=== PATIENT | male | born 1955 | race Caucasian/White ===

== ENCOUNTER 2016-03-24 16:36 | Inpatient (IN) | payer MEDICARE, BC ==
[2016-03-24] MEDS ORDERED: SODIUM CHLORIDE 0.9% 1,000 ML IV STA (17:07)
[2016-03-24] MEDS ORDERED: AZITHROMYCIN 500 MG in SODIUM CHLORIDE 0.9% 250 ML IVPB STA (17:07)
[2016-03-24] MEDS ORDERED: ALBUTEROL NEBULIZED 2.5 MG/3 ML INHALATION STA (17:07)
[2016-03-24] MEDS ORDERED: methylPREDNISolone SOD SUCCI 125 MG/2 ML VIAL IV STA (17:07)
[2016-03-24] MEDS ORDERED: IPRATROPIUM 0.5 MG/2.5 ML NEBU INHALATION STA (17:07)
--- NOTE | 2016-03-24 17:14 | ED ---
General Adult HPI - General Chief complaint: Shortness of Breath Stated complaint: MOY Time Seen by Provider: 03/24/16 17:07 Source: patient, RN notes reviewed, old records reviewed Mode of arrival: ambulatory Limitations: no limitations - History of Present Illness Initial comments: This is a 61-year-old male ER for evaluation. This patient presents for evaluation of shortness of breath. Patient does suffer from asthma as well as having cardiac comorbidities. Nations states he was recently evaluated for similar symptoms about 4 days ago, no improvement since. No fevers, does have increased cough and congestion, no recent travel history and at this time denies chest pain - Related Data Home Medications Medication Instructions Recorded Confirmed Citalopram Hydrobromide [CeleXA] 20 mg PO HS 12/15/14 03/24/16 Metoprolol Tartrate 25 mg PO HS 12/15/14 03/24/16 Zinc Gluconate [Zinc] 50 mg PO DAILY 12/15/14 03/24/16 Albuterol Nebulized [Ventolin 1 applicate INHALATION RT-Q6H PRN 07/18/15 Nebulized] Magnesium Oxide [Mag-Ox] 250 mg PO DAILY 09/21/15 03/24/16 Tiotropium 18 Mcg/Puff [Spiriva] 1 cap INHALATION RT-DAILY 09/21/15 03/24/16 Topiramate [Topiramate] 25 mg PO BID 09/21/15 03/24/16 Warfarin [Coumadin] 5 mg PO HS 09/21/15 03/24/16 HYDROcodone/APAP 10-325MG [[place] 1 tab PO Q6H PRN 01/18/16 03/24/16 10-325] Budesonide/Formoterol Fumarate 2 puff INHALATION RT-BID 02/15/16 03/24/16 [Symbicort 80-4.5 Mcg Inhaler] Colchicin-Probenecid 0.5-500Mg 1 tab PO DAILY 02/15/16 03/24/16 [Colbenemid] Diazepam [Valium] 5 mg PO DAILY PRN 02/15/16 03/24/16 Previous Rx's Medication Instructions Recorded Warfarin [Coumadin] 6 mg PO DAILY #30 tab 03/27/16 predniSONE 0 mg PO DIRECTED #18 tab 03/27/16 Allergies Allergy/AdvReac Type Severity Reaction Status Date / Time No Known Allergies Allergy Verified 03/24/16 17:40 Review of Systems ROS Statement: Those systems with pertinent positive or pertinent negative responses have been documented in the HPI. ROS Other: All systems not noted in ROS Statement are negative. Past Medical History Past Medical History: COPD, Deep Vein Thrombosis (DVT), GERD/Reflux, Hearing Disorder / Deafness, Osteoarthritis (OA), Vascular Disorder, Vascular Disorder Additional Past Medical History / Comment(s): CHRONIC BRONCHITIS. DVT of the right lower extremity in 2007 , peripheral vascular disease, wound bottom rt foot, cast on rt footdependent. wound rt foot History of Any Multi-Drug Resistant Organisms: MRSA Date of last positivie culture/infection: 2007 MDRO Source:: NECK Past Surgical History: Hernia Repair, Orthopedic Surgery Additional Past Surgical History / Comment(s): Bilateral femoral bypass surgery , arthroscopic left knee surgery, bilateral inguinal hernia repair, partial left great toe excision/amputation . Past Anesthesia/Blood Transfusion Reactions: No Reported Reaction Past Psychological History: Anxiety Smoking Status: Current every day smoker Past Alcohol Use History: Occasional Additional Past Alcohol Use History / Comment(s): smoker since age 18 , 1 PPD Past Drug Use History: Marijuana Additional Drug Use History / Comment(s): occ use - Past Family History Brother(s) Family Medical History: Coronary Artery Disease (CAD) Additional Family Medical History / Comment(s): heart attack/cabg Mother Family Medical History: Deep Vein Thrombosis (DVT) General Exam Limitations: no limitations General appearance: alert, in no apparent distress Head exam: Present: atraumatic, normocephalic, normal inspection Eye exam: Present: normal appearance, PERRL, EOMI. Absent: scleral icterus, conjunctival injection, periorbital swelling ENT exam: Present: normal exam, mucous membranes moist Neck exam: Present: normal inspection. Absent: tenderness, meningismus, lymphadenopathy Respiratory exam: Present: wheezes, accessory muscle use, decreased breath sounds, prolonged expiratory. Absent: respiratory distress, rales, rhonchi, stridor Cardiovascular Exam: Present: regular rate, normal rhythm, normal heart sounds. Absent: systolic murmur, diastolic murmur, rubs, gallop, clicks GI/Abdominal exam: Present: soft, normal bowel sounds. Absent: distended, tenderness, guarding, rebound, rigid Extremities exam: Present: normal inspection, full ROM, normal capillary refill. Absent: tenderness, pedal edema, joint swelling, calf tenderness Back exam: Present: normal inspection Neurological exam: Present: alert, oriented X3, CN II-XII intact Psychiatric exam: Present: normal affect, normal mood Skin exam: Present: warm, dry, intact, normal color. Absent: rash Course Vital Signs 03/24/16 03/24/16 03/24/16 17:01 17:34 18:08 Temperature 97.3 F L Pulse Rate 97 89 Respiratory 22 20 22 Rate Blood Pressure 138/87 131/74 O2 Sat by Pulse 93 L 94 L Oximetry 03/24/16 03/24/16 03/24/16 18:20 18:38 18:40 Temperature Pulse Rate 88 86 92 Respiratory Rate Blood Pressure 125/73 O2 Sat by Pulse 100 Oximetry 03/24/16 03/24/16 19:10 19:29 Temperature 97.9 F Pulse Rate 96 97 Respiratory 20 Rate Blood Pressure 142/85 O2 Sat by Pulse 93 L Oximetry - Reevaluation(s) Reevaluation #1: 03/24/16 17:14 Patient's at home pulse ox noted to be 88% EKG Findings - EKG Comments: EKG Findings:: EKG shows normal sinus rhythm rate of 98, VT 142, QRS 96, QTc 474 Medical Decision Making - Medical Decision Making 61 year with significant shortness of breath, patient having COPD exacerbation with hypoxia, he does mild improvement prolonged region, patient be admitted admitted for further cardiopulmonary resuscitation, breathing treatments and further treatment and management - Lab Data Result diagrams: 03/24/16 17:30 03/27/16 07:42 Lab Results 03/24/16 03/24/16 03/24/16 Range/Units 17:30 17:30 17:30 WBC 8.1 (3.8-10.6) k/uL RBC 5.65 (4.30-5.90) m/uL Hgb 17.4 (13.0-17.5) gm/dL Hct 51.9 (39.0-53.0) % MCV 92.0 (80.0-100.0) fL MCH 30.8 (25.0-35.0) pg MCHC 33.5 (31.0-37.0) g/dL RDW 14.6 (11.5-15.5) % Plt Count 236 (150-450) k/uL Neutrophils % 67 % Lymphocytes % 18 % Monocytes % 6 % Eosinophils % 6 % Basophils % 1 % Neutrophils # 5.4 (1.3-7.7) k/uL Lymphocytes # 1.5 (1.0-4.8) k/uL Monocytes # 0.5 (0-1.0) k/uL Eosinophils # 0.5 (0-0.7) k/uL Basophils # 0.1 (0-0.2) k/uL PT (9.0-12.0) sec INR (<1.1) APTT (22.0-30.0) sec Sodium 141 (137-145) mmol/L Potassium 3.8 (3.5-5.1) mmol/L Chloride 101 (98-107) mmol/L Carbon Dioxide 29 (22-30) mmol/L Anion Gap 11 mmol/L BUN 14 (9-20) mg/dL Creatinine 1.19 (0.66-1.25) mg/dL Est GFR (MDRD) Af Amer >60 (>60 ml/min/1.73 sqM) Est GFR (MDRD) Non-Af >60 (>60 ml/min/1.73 sqM) Glucose 98 (74-99) mg/dL Calcium 9.5 (8.4-10.2) mg/dL Magnesium 1.0 L* (1.6-2.3) mg/dL Total Bilirubin 0.5 (0.2-1.3) mg/dL AST 25 (17-59) U/L ALT 35 (21-72) U/L Alkaline Phosphatase 97 (38-126) U/L Total Creatine Kinase 66 (55-170) U/L CK-MB (CK-2) 1.3 (0.0-2.4) ng/mL CK-MB (CK-2) Rel Index 2.0 Troponin I <0.012 (0.000-0.034) ng/mL NT-Pro-B Natriuret Pep pg/mL Total Protein 7.4 (6.3-8.2) g/dL Albumin 3.9 (3.5-5.0) g/dL 03/24/16 03/24/16 Range/Units 17:30 17:30 WBC (3.8-10.6) k/uL RBC (4.30-5.90) m/uL Hgb (13.0-17.5) gm/dL Hct (39.0-53.0) % MCV (80.0-100.0) fL MCH (25.0-35.0) pg MCHC (31.0-37.0) g/dL RDW (11.5-15.5) % Plt Count (150-450) k/uL Neutrophils % % Lymphocytes % % Monocytes % % Eosinophils % % Basophils % % Neutrophils # (1.3-7.7) k/uL Lymphocytes # (1.0-4.8) k/uL Monocytes # (0-1.0) k/uL Eosinophils # (0-0.7) k/uL Basophils # (0-0.2) k/uL PT 15.6 H (9.0-12.0) sec INR 1.6 (<1.1) APTT 33.0 H (22.0-30.0) sec Sodium (137-145) mmol/L Potassium (3.5-5.1) mmol/L Chloride (98-107) mmol/L Carbon Dioxide (22-30) mmol/L Anion Gap mmol/L BUN (9-20) mg/dL Creatinine (0.66-1.25) mg/dL Est GFR (MDRD) Af Amer (>60 ml/min/1.73 sqM) Est GFR (MDRD) Non-Af (>60 ml/min/1.73 sqM) Glucose (74-99) mg/dL Calcium (8.4-10.2) mg/dL Magnesium (1.6-2.3) mg/dL Total Bilirubin (0.2-1.3) mg/dL AST (17-59) U/L ALT (21-72) U/L Alkaline Phosphatase (38-126) U/L Total Creatine Kinase (55-170) U/L CK-MB (CK-2) (0.0-2.4) ng/mL CK-MB (CK-2) Rel Index Troponin I (0.000-0.034) ng/mL NT-Pro-B Natriuret Pep 56 pg/mL Total Protein (6.3-8.2) g/dL Albumin (3.5-5.0) g/dL - Radiology Data Radiology results: report reviewed (Chest x-ray is negative for acute disease), image reviewed Critical Care Time Critical Care Time: Yes Total Critical Care Time: 31 Disposition Clinical Impression: COPD exacerbation, Hypoxia Disposition: ADMITTED IP TO THIS HOSP Condition: Fair
[2016-03-24 17:43] LABS: Basophils # (A) 0.1 k/uL (0-0.2); Basophils % (A) 1 %; CH 30.1; CHCM 32.9; Eosinophils # (A) 0.5 k/uL (0-0.7); Eosinophils % (A) 6 %; HCT 51.9 % (39.0-53.0); HGB 17.4 gm/dL (13.0-17.5); Luc # (Auto) 0.23; Luc % (Auto) 3; Lymphocytes # (A) 1.5 k/uL (1.0-4.8); Lymphocytes % (A) 18 %; MCH 30.8 pg (25.0-35.0); MCHC 33.5 g/dL (31.0-37.0); Mean Platelet Volume 7.3; Monocytes # (A) 0.5 k/uL (0-1.0); Monocytes % (A) 6 %; Neutrophils # (A) 5.4 k/uL (1.3-7.7); Neutrophils % (A) 67 %; RBC 5.65 m/uL (4.30-5.90); RDW 14.6 % (11.5-15.5); WBC 8.1 k/uL (3.8-10.6); WBC (Perox) 8.52
[2016-03-24 17:54] LABS: ALT 35 U/L (21-72); AST 25 U/L (17-59); Alkaline Phosphatase 97 U/L (38-126); Anion Gap 11 mmol/L; Blood Urea Nitrogen 14 mg/dL (9-20); Calcium 9.5 mg/dL (8.4-10.2); Carbon Dioxide 29 mmol/L (22-30); Chloride 101 mmol/L (98-107); Glucose 98 mg/dL (74-99); INR 1.6 (<1.1); Non-African American GFR(MDRD) >60 (>60 ml/min/1.73 sqM); Prothrombin Time 15.6 sec (9.0-12.0); Sodium 141 mmol/L (137-145); Total Bilirubin 0.5 mg/dL (0.2-1.3); Total Protein 7.4 g/dL (6.3-8.2)
[2016-03-24 17:56] LABS: Potassium 3.8 mmol/L (3.5-5.1)
[2016-03-24 18:06] LABS: Creatine Kinase 66 U/L (55-170)
--- NOTE | 2016-03-24 18:16 | XR ---
EXAMINATION TYPE: XR chest 1V portable DATE OF EXAM: 03/24/2016 6:12 PM COMPARISON: 09/21/2015 HISTORY: Short of breath and cough TECHNIQUE: Single frontal view of the chest is obtained. FINDINGS: There is no heart failure nor confluent pneumonic infiltrate. Costophrenic angles are ky r. There are no hilar masses. There are chest leads. IMPRESSION: No active cardiopulmonary disease. No change.
[2016-03-24 18:19] LABS: Creatine Kinase MB 1.3 ng/mL (0.0-2.4); Troponin I <0.012 ng/mL (0.000-0.034)
[2016-03-24] MEDS ORDERED: MORPHINE SULFATE 4 MG/ML SYRINGE IVP STA (18:31)
[2016-03-24] MEDS ORDERED: PNEUMONIA PROTOCOL UTILIZED 1 EACH MISC PO PRN (18:41)
[2016-03-24] MEDS: IPRATROPIUM-ALBUTEROL 3 ML NEB INHALATION SCH (20:20)
[2016-03-24] MEDS: SODIUM CHLORIDE 0.9% 1,000 ML IV SCH (20:28)
[2016-03-24 20:30] LABS: Glucose,Whole Blood 126 mg/dL (75-99)
[2016-03-25] MEDS ORDERED: DIAZEPAM 5 MG TAB PO PRN (03:00)
[2016-03-25] MEDS: HYDROcodone/APAP 10-325MG 1 EACH TAB PO PRN ×4 (03:11→21:10)
[2016-03-25] MEDS: NICOTINE 14MG/24HR PATCH TRANSDERM SCH ×3 (03:50→21:10)
[2016-03-25] MEDS: SODIUM CHLORIDE 0.9% 1,000 ML IV SCH ×3 (05:17→23:57)
[2016-03-25 07:04] LABS: Glucose,Whole Blood 206 mg/dL (75-99)
--- NOTE | 2016-03-25 08:06 | P.HPIM ---
History of Present Illness H&P Date: 03/25/16 Chief Complaint: Shortness of breath. This 61-year-old male essentially with history of severe arthritis and admission for chronic bronchitis with exacerbation of COPD. He is a 40-pack- year smoker. Low-grade fever is otherwise stated. He is concerned because she would like to go home today related to the fact that he has of rheumatoid arthritis appointment tomorrow. No significant voiding difficulties. No nausea , vomiting or diarrhea is noted. He still smokes about a pack a week. Review of Systems Constitutional: Denies chills, Denies fever Eyes: denies blurred vision, denies pain Ears, nose, mouth and throat: Denies headache, Denies sore throat Cardiovascular: Denies chest pain, Denies shortness of breath Respiratory: Denies cough Gastrointestinal: Reports as per HPI Genitourinary: Reports as per HPI Musculoskeletal: Denies myalgias Integumentary: Reports as per HPI Neurological: Denies as per HPI Past Medical History Past Medical History: COPD, Deep Vein Thrombosis (DVT), GERD/Reflux, Hearing Disorder / Deafness, Osteoarthritis (OA), Vascular Disorder, Vascular Disorder Additional Past Medical History / Comment(s): CHRONIC BRONCHITIS. DVT of the right lower extremity in 2007 , peripheral vascular disease, wound bottom rt foot, cast on rt footdependent. wound rt foot History of Any Multi-Drug Resistant Organisms: MRSA Date of last positivie culture/infection: 2007 MDRO Source:: NECK Past Surgical History: Hernia Repair, Orthopedic Surgery Additional Past Surgical History / Comment(s): Bilateral femoral bypass surgery , arthroscopic left knee surgery, bilateral inguinal hernia repair, partial left great toe excision/amputation . Past Anesthesia/Blood Transfusion Reactions: No Reported Reaction Past Psychological History: Anxiety Smoking Status: Current every day smoker Past Alcohol Use History: Occasional Additional Past Alcohol Use History / Comment(s): smoker since age 18 , 1 PPD Past Drug Use History: Marijuana Additional Drug Use History / Comment(s): occ use - Past Family History Brother(s) Family Medical History: Coronary Artery Disease (CAD) Additional Family Medical History / Comment(s): heart attack/cabg Mother Family Medical History: Deep Vein Thrombosis (DVT) Medications and Allergies Home Medications Medication Instructions Recorded Confirmed Type Citalopram Hydrobromide [CeleXA] 20 mg PO HS 12/15/14 03/24/16 History Metoprolol Tartrate 25 mg PO HS 12/15/14 03/24/16 History Zinc Gluconate [Zinc] 50 mg PO DAILY 12/15/14 03/24/16 History Albuterol Nebulized [Ventolin 1 applicate INHALATION RT-Q6H PRN 07/18/15 History Nebulized] Magnesium Oxide [Mag-Ox] 250 mg PO DAILY 09/21/15 03/24/16 History Tiotropium 18 Mcg/Puff [Spiriva] 1 cap INHALATION RT-DAILY 09/21/15 03/24/16 History Topiramate [Topiramate] 25 mg PO BID 09/21/15 03/24/16 History Warfarin [Coumadin] 5 mg PO HS 09/21/15 03/24/16 History HYDROcodone/APAP 10-325MG [[place] 1 tab PO Q6H PRN 01/18/16 03/24/16 History 10-325] Budesonide/Formoterol Fumarate 2 puff INHALATION RT-BID 02/15/16 03/24/16 History [Symbicort 80-4.5 Mcg Inhaler] Colchicin-Probenecid 0.5-500Mg 1 tab PO DAILY 02/15/16 03/24/16 History [Colbenemid] Diazepam [Valium] 5 mg PO DAILY PRN 02/15/16 03/24/16 History Allergies Allergy/AdvReac Type Severity Reaction Status Date / Time No Known Allergies Allergy Verified 03/24/16 17:40 Physical Exam Vitals: Vital Signs Temp Pulse Pulse Resp BP BP Pulse Ox 03/25/16 07:00 97.7 F 93 18 123/57 95 03/24/16 23:00 98.2 F 104 H 19 125/80 91 L 03/24/16 20:26 97.3 F L 100 19 138/88 91 L 03/24/16 19:29 97.9 F 97 20 142/85 93 L 03/24/16 19:10 96 Intake and Output 03/24/16 03/25/16 03/25/16 22:59 06:59 14:59 Other: Voiding Method Toilet # Voids 0 1 # Bowel Movements 0 - Constitutional General appearance: obese - EENT Eyes: no abnormal pupil - Neck Neck: lymphadenopathy - Respiratory Respiratory: bilateral: diminished - Cardiovascular Rhythm: regular Heart sounds: normal: S1, S2 - Gastrointestinal General gastrointestinal: soft, no tenderness - Neurologic Neurologic: CNII-XII intact, focal deficits Results CBC & Chem 7: 03/24/16 17:30 03/24/16 17:30 Labs: Abnormal Lab Results - Last 24 Hours (Table) 03/24/16 03/25/16 Range/Units 20:18 06:55 POC Glucose (mg/dL) 126 H 206 H (75-99) mg/dL Thrombosis Risk Factor Assmnt - Choose All That Apply Any of the Below Risk Factors Present?: Yes Each Factor Represents 1 point: Abnormal pulmonary function (COPD), Age 41-60 years, Obesity (BMI >25) Other Risk Factors: No Other congenital or acquired thrombophilia - If yes, enter type in comment: No Thrombosis Risk Factor Assessment Total Risk Factor Score: 3 Thrombosis Risk Factor Assessment Level: Moderate Risk Assessment and Plan (1) COPD exacerbation Status: Acute (2) 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 Restart home medications. We'll go ahead and anticipate discharge in next 48-72 hours once stabilized. Time with Patient: Less than 30
--- NOTE | 2016-03-25 08:18 | XR ---
EXAMINATION TYPE: XR chest 2V DATE OF EXAM: 03/25/2016 7:22 AM COMPARISON: Prior chest x-ray 24 March 2016 HISTORY: Pneumonia, COPD TECHNIQUE: Frontal and lateral views of the chest are obtained. FINDINGS: No significant interval change. Cardiomediastinal silhouette, pulmonary vascularity and hi la are stable. No pneumothorax or pleural effusion. Strand-like densities at the lung bases may refle ct some minimal atelectasis. IMPRESSION: Basilar atelectasis.
[2016-03-25] MEDS: IPRATROPIUM-ALBUTEROL 3 ML NEB INHALATION SCH ×4 (08:24→19:31)
[2016-03-25] MEDS: SYMBICORT 80-4.5 MCG INHALER INHALATION SCH ×2 (08:24→19:31)
[2016-03-25] MEDS: COLCHICIN-PROBENECID 0.5-500MG 1 EACH TAB PO SCH (09:19)
[2016-03-25] MEDS: ZINC GLUCONATE 50 MG TAB PO SCH (09:20)
[2016-03-25] MEDS: ENOXAPARIN 40 MG/0.4 ML SYRINGE SQ SCH (09:20)
[2016-03-25] MEDS: MAGNESIUM OXIDE 250 MG TAB PO SCH (09:20)
[2016-03-25] MEDS: TOPIRAMATE 25 MG TAB PO SCH ×2 (09:20→22:01)
[2016-03-25 12:19] LABS: Glucose,Whole Blood 141 mg/dL (75-99)
[2016-03-25] MEDS ORDERED: MAGNESIUM SULFATE-D5W PMX 1 GM in DEXTROSE/WATER 1 100ML.BAG IVPB ONE (16:19)
[2016-03-25] MEDS: AZITHROMYCIN 500 MG TAB PO SCH (17:09)
[2016-03-25] MEDS: methylPREDNISolone SOD SUCCI 125 MG/2 ML VIAL IV SCH ×2 (17:09→23:56)
[2016-03-25 17:12] LABS: Glucose,Whole Blood 136 mg/dL (75-99)
[2016-03-25] MEDS: WARFARIN 5 MG TAB PO SCH (21:09)
[2016-03-25] MEDS: CITALOPRAM HYDROBROMIDE 20 MG TAB PO SCH (21:10)
[2016-03-25] MEDS: METOPROLOL TARTRATE 25 MG TAB PO SCH (21:10)
[2016-03-25 21:33] LABS: Glucose,Whole Blood 191 mg/dL (75-99)
[2016-03-26] MEDS: methylPREDNISolone SOD SUCCI 125 MG/2 ML VIAL IV SCH ×4 (06:21→23:27)
[2016-03-26 07:36] LABS: Glucose,Whole Blood 135 mg/dL (75-99)
[2016-03-26] MEDS: IPRATROPIUM-ALBUTEROL 3 ML NEB INHALATION SCH ×4 (07:42→19:33)
[2016-03-26] MEDS: SYMBICORT 80-4.5 MCG INHALER INHALATION SCH ×2 (07:42→19:33)
--- NOTE | 2016-03-26 08:16 | P.PN ---
Subjective Principal diagnosis: Exacerbation of COPD and hypomagnesemia This is a 61-year-old white male essentially admitted for exacerbation of COPD. He is found have low magnesium. No voiding difficulties. He is feeling much better. He is requesting increase of his Valium to home dosing. Objective - Vital Signs Vital signs: Vital Signs Temp 97.2 F L 03/25/16 23:55 Pulse 86 03/26/16 07:56 Resp 20 03/25/16 23:55 BP 159/87 03/25/16 23:55 Pulse Ox 96 03/26/16 07:44 Intake & Output 03/25/16 03/26/16 03/26/16 18:59 06:59 18:59 Intake Total 480 1040 Balance 480 1040 Intake: Oral 480 1040 Other: Voiding Method Toilet # Voids 2 2 # Bowel Movements 0 - Constitutional General appearance: Present: average body habitus - EENT Eyes: Absent: abnormal pupil - Respiratory Respiratory: bilateral: wheezing - Cardiovascular Rhythm: regular Heart sounds: normal: S1, S2 - Gastrointestinal General gastrointestinal: Present: soft. Absent: tenderness - Integumentary Integumentary: Absent: rash - Labs CBC & Chem 7: 03/24/16 17:30 03/24/16 17:30 Labs: Abnormal Lab Results - Last 24 Hours (Table) 03/25/16 03/25/16 03/25/16 Range/Units 12:15 17:10 21:28 POC Glucose (mg/dL) 141 H 136 H 191 H (75-99) mg/dL Magnesium (1.6-2.3) mg/dL 03/26/16 03/26/16 Range/Units 03:02 07:26 POC Glucose (mg/dL) 135 H (75-99) mg/dL Magnesium 1.3 L (1.6-2.3) mg/dL Microbiology - Last 24 Hours (Table) 03/25/16 08:45 Gram Stain - Preliminary Sputum Assessment and Plan (1) COPD exacerbation Status: Acute (2) Atherosclerosis of [place] arteries of left leg with ulceration of other part of foot Status: Acute (3) Ulcer of right foot Status: Acute Plan: Continue current regimen of prednisone. Magnesium protocol followed. Check CMP and magnesium in a.m. Anticipate discharge in next 24-48 hours.
[2016-03-26 08:22] LABS: ALT 25 U/L (21-72); AST 18 U/L (17-59); Alkaline Phosphatase 87 U/L (38-126); Anion Gap 12 mmol/L; Blood Urea Nitrogen 13 mg/dL (9-20); Calcium 8.6 mg/dL (8.4-10.2); Carbon Dioxide 24 mmol/L (22-30); Chloride 106 mmol/L (98-107); Glucose 171 mg/dL (74-99); Non-African American GFR(MDRD) >60 (>60 ml/min/1.73 sqM); Potassium 4.1 mmol/L (3.5-5.1); Sodium 142 mmol/L (137-145); Total Bilirubin 0.4 mg/dL (0.2-1.3); Total Protein 6.6 g/dL (6.3-8.2)
[2016-03-26 09:25] LABS: INR 1.6 (<1.1); Prothrombin Time 15.4 sec (9.0-12.0)
[2016-03-26] MEDS: ENOXAPARIN 40 MG/0.4 ML SYRINGE SQ SCH (09:32)
[2016-03-26] MEDS: HYDROcodone/APAP 10-325MG 1 EACH TAB PO PRN ×2 (09:33→17:01)
[2016-03-26] MEDS: ZINC GLUCONATE 50 MG TAB PO SCH (09:33)
[2016-03-26] MEDS: TOPIRAMATE 25 MG TAB PO SCH ×2 (09:33→20:59)
[2016-03-26] MEDS: MAGNESIUM OXIDE 250 MG TAB PO SCH (09:33)
[2016-03-26] MEDS: COLCHICIN-PROBENECID 0.5-500MG 1 EACH TAB PO SCH (09:33)
[2016-03-26] MEDS: SODIUM CHLORIDE 0.9% 1,000 ML IV SCH ×2 (10:45→20:57)
[2016-03-26] MEDS ORDERED: Magnesium Replacement Protocol 1 EACH MISC MISCELLANE PRN (11:43)
[2016-03-26 12:03] LABS: Glucose,Whole Blood 243 mg/dL (75-99)
[2016-03-26] MEDS: MAGNESIUM SULFATE-D5W PMX 1 GM in DEXTROSE/WATER 1 100ML.BAG IVPB SCH ×3 (12:38→17:01)
[2016-03-26] MEDS: DIAZEPAM 5 MG TAB PO PRN (12:44)
[2016-03-26] MEDS: AZITHROMYCIN 500 MG TAB PO SCH (17:02)
[2016-03-26 17:34] LABS: Glucose,Whole Blood 248 mg/dL (75-99)
[2016-03-26] MEDS: INSULIN LISPRO (humaLOG) 300 UNIT/3 ML VIAL SQ SCH ×2 (17:44→21:53)
[2016-03-26] MEDS: WARFARIN 5 MG TAB PO SCH (20:59)
[2016-03-26] MEDS: METOPROLOL TARTRATE 25 MG TAB PO SCH (20:59)
[2016-03-26] MEDS: CITALOPRAM HYDROBROMIDE 20 MG TAB PO SCH (20:59)
[2016-03-26 21:48] LABS: Glucose,Whole Blood 229 mg/dL (75-99)
[2016-03-27] MEDS: methylPREDNISolone SOD SUCCI 125 MG/2 ML VIAL IV SCH (06:01)
[2016-03-27] MEDS: SODIUM CHLORIDE 0.9% 1,000 ML IV SCH ×2 (06:02→08:20)
[2016-03-27 07:33] LABS: Glucose,Whole Blood 116 mg/dL (75-99)
[2016-03-27 07:50] VITALS: BP 103/59; PULSE 77; RESP 21; TEMP 98.2
[2016-03-27] MEDS: IPRATROPIUM-ALBUTEROL 3 ML NEB INHALATION SCH (08:10)
[2016-03-27] MEDS: SYMBICORT 80-4.5 MCG INHALER INHALATION SCH (08:10)
[2016-03-27] MEDS: INSULIN LISPRO (humaLOG) 300 UNIT/3 ML VIAL SQ SCH (08:14)
--- NOTE | 2016-03-27 08:16 | P.DS ---
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 He states for several days and received appropriate antibiotic treatment with steroid therapy. He is back to 80% of his baseline. He is walking the halls and ambulating without difficulty no voiding difficulties he will follow- up with me in about 1 week. He is tolerating diet and is sent home on albuterol nebulizers, oral steroids and appropriate inhalers. Patient Condition at Discharge: Fair Plan - Discharge Summary New Discharge Prescriptions: Warfarin [Coumadin] 6 mg PO DAILY #30 tab predniSONE 0 mg PO DIRECTED #18 tab Discharge Medication List Citalopram Hydrobromide [CeleXA] 20 mg PO HS 12/15/14 [History] Metoprolol Tartrate 25 mg PO HS 12/15/14 [History] Zinc Gluconate [Zinc] 50 mg PO DAILY 12/15/14 [History] Albuterol Nebulized [Ventolin Nebulized] 1 applicate INHALATION RT-Q6H PRN 07/17 [History] Magnesium Oxide [Mag-Ox] 250 mg PO DAILY 09/21/15 [History] Tiotropium 18 Mcg/Puff [Spiriva] 1 cap INHALATION RT-DAILY 09/21/15 [History] Topiramate [Topiramate] 25 mg PO BID 09/21/15 [History] Warfarin [Coumadin] 5 mg PO HS 09/21/15 [History] HYDROcodone/APAP 10-325MG [[place] 10-325] 1 tab PO Q6H PRN 01/18/16 [History] Budesonide/Formoterol Fumarate [Symbicort 80-4.5 Mcg Inhaler] 2 puff INHALATION RT-BID 02/15/16 [History] Colchicin-Probenecid 0.5-500Mg [Colbenemid] 1 tab PO DAILY 02/15/16 [History] Diazepam [Valium] 5 mg PO DAILY PRN 02/15/16 [History] Warfarin [Coumadin] 6 mg PO DAILY #30 tab 03/27/16 [Rx] predniSONE 0 mg PO DIRECTED #18 tab 03/27/16 [Rx] Follow up Appointment(s)/Referral(s): Malik Bui MD [Primary Care Provider] - 1 Week
[2016-03-27] MEDS: ENOXAPARIN 40 MG/0.4 ML SYRINGE SQ SCH (08:17)
[2016-03-27] MEDS: TOPIRAMATE 25 MG TAB PO SCH (08:17)
[2016-03-27] MEDS: MAGNESIUM OXIDE 250 MG TAB PO SCH (08:17)
[2016-03-27] MEDS: NICOTINE 14MG/24HR PATCH TRANSDERM SCH (08:17)
[2016-03-27] MEDS: ZINC GLUCONATE 50 MG TAB PO SCH (08:17)
[2016-03-27] MEDS: COLCHICIN-PROBENECID 0.5-500MG 1 EACH TAB PO SCH (08:17)
[2016-03-27] MEDS: DIAZEPAM 5 MG TAB PO PRN (08:19)
[2016-03-27] MEDS: HYDROcodone/APAP 10-325MG 1 EACH TAB PO PRN (08:20)
[2016-03-27 08:31] LABS: ALT 31 U/L (21-72); AST 14 U/L (17-59); Alkaline Phosphatase 74 U/L (38-126); Anion Gap 7 mmol/L; Blood Urea Nitrogen 15 mg/dL (9-20); Calcium 8.5 mg/dL (8.4-10.2); Carbon Dioxide 30 mmol/L (22-30); Chloride 105 mmol/L (98-107); Glucose 134 mg/dL (74-99); Magnesium 1.9 mg/dL (1.6-2.3); Non-African American GFR(MDRD) >60 (>60 ml/min/1.73 sqM); Potassium 3.9 mmol/L (3.5-5.1); Sodium 142 mmol/L (137-145); Total Bilirubin 0.4 mg/dL (0.2-1.3); Total Protein 6.5 g/dL (6.3-8.2)
[2016-03-27 10:14] LABS: Hemoglobin A1C 5.6 % (4.2-6.1)
[2016-03-27] MEDS ORDERED: WARFARIN 3 MG TAB PO SCH (18:00)
== END 2016-03-27 09:44 | disposition home or self-care (01) | DRG 192 ==
LOC: EC 16:36 → 4MS4W 18:41
PROVIDERS: ADMIT Family Medicine; ATTEND Family Medicine
DX: J44.1 Chronic obstructive pulmonary disease with (acute) exacerbation (principal); E83.42 Hypomagnesemia; F17.200 Nicotine dependence, unspecified, uncomplicated; I70.202 Unspecified atherosclerosis of native arteries of extremities, left leg; M06.9 Rheumatoid arthritis, unspecified; J45.909 Unspecified asthma, uncomplicated; M19.90 Unspecified osteoarthritis, unspecified site; F41.9 Anxiety disorder, unspecified; H91.90 Unspecified hearing loss, unspecified ear; K21.9 Gastro-esophageal reflux disease without esophagitis; Z86.14 Personal history of Methicillin resistant Staphylococcus aureus infection; Z79.01 Long term (current) use of anticoagulants; Z79.51 Long term (current) use of inhaled steroids; Z79.899 Other long term (current) drug therapy
CPT/HCPCS: 36415; 71010; 71020; 80053; 82550; 82553; 83036; 83735; 83880; 84484; 85025; 85610; 85730; 87040; 87070; 87205; 93005; 94640; 94644; 94760; 96365; 96366; 96375; 99285

== ENCOUNTER → 2016-04-08 | Outpatient (CLI) | payer MEDICARE, BC ==
--- NOTE | 2016-04-08 14:25 | NM ---
EXAMINATION TYPE: NM bone scan whole body DATE OF EXAM: 04/08/2016 2:20 PM COMPARISON: NONE HISTORY: Polyarthritis Delayed whole-body scanning was performed following the injection of 27.2 mCi Tc 99m MDP. Images acq uired 3 hours post injection. FINDINGS: Mild to moderate uptake seen throughout the mid and lower thoracic and throughout the lumbar spine li [place] degenerative. Abnormal uptake involving the posterior margin of the right 10th rib likely posttr aumatic. Abnormal uptake involving the feet, knees and shoulders likely post arthritic. Abnormal uptake involving the mandible likely in the basis of periodontal disease. IMPRESSION: 1. Abnormal uptake involving the vertebral column likely degenerative. 2. Abnormal uptake involving the posterior right rib cage likely in the basis of previous trauma
== END | disposition home or self-care (01) ==
LOC: RADNMMAIN 10:01
PROVIDERS: ATTEND Physical Medicine & Rehabilitation
DX: R94.8 Abnormal results of function studies of other organs and systems (principal)
CPT/HCPCS: 78306; A9503

== ENCOUNTER 2016-05-19 00:04 | Inpatient (IN) | payer MEDICARE, BC ==
[2016-05-19] MEDS ORDERED: SODIUM CHLORIDE 0.9% 1,000 ML IV STA (00:23)
[2016-05-19] MEDS ORDERED: methylPREDNISolone SOD SUCCI 125 MG/2 ML VIAL IV STA (00:23)
[2016-05-19] MEDS ORDERED: MAGNESIUM SULFATE-D5W PMX 1 GM in DEXTROSE/WATER 1 100ML.BAG IVPB STA (00:23)
--- NOTE | 2016-05-19 00:27 | ED ---
SOB HPI - General Chief Complaint: Shortness of Breath Stated Complaint: MOY Time Seen by Provider: 05/19/16 00:20 Source: patient, RN notes reviewed Mode of arrival: ambulatory Limitations: no limitations - History of Present Illness Initial Comments: This is a 61-year-old male with a history of COPD who had the onset of shortness of breath yesterday. He denies any fevers chills or sweats he notices pulse ox went down from [id number] were normal he is down to 90 and below it was a [place] is prior to him coming in [facility]. He has a cough with clear phlegm some chest tightness with her symptoms at this time. He has exertional dyspnea however. MD Complaint: shortness of breath, cough - Related Data Home Medications Medication Instructions Recorded Confirmed Citalopram Hydrobromide [CeleXA] 20 mg PO HS 12/15/14 05/19/16 Metoprolol Tartrate 25 mg PO HS 12/15/14 05/19/16 Zinc Gluconate [Zinc] 50 mg PO DAILY 12/15/14 05/19/16 Albuterol Nebulized [Ventolin 1 applicate INHALATION RT-Q6H PRN 07/18/15 Nebulized] Magnesium Oxide [Mag-Ox] 250 mg PO DAILY 09/21/15 05/19/16 Tiotropium 18 Mcg/Puff [Spiriva] 1 cap INHALATION RT-DAILY 09/21/15 05/19/16 Topiramate [Topiramate] 25 mg PO BID 09/21/15 05/19/16 Warfarin [Coumadin] 5 mg PO HS 09/21/15 05/19/16 HYDROcodone/APAP 10-325MG [[place] 1 tab PO Q6H PRN 01/18/16 05/19/16 10-325] Budesonide/Formoterol Fumarate 2 puff INHALATION RT-BID 02/15/16 05/19/16 [Symbicort 80-4.5 Mcg Inhaler] Colchicin-Probenecid 0.5-500Mg 1 tab PO DAILY 02/15/16 05/19/16 [Colbenemid] Diazepam [Valium] 5 mg PO DAILY PRN 02/15/16 05/19/16 Previous Rx's Medication Instructions Recorded Warfarin [Coumadin] 6 mg PO DAILY #30 tab 03/27/16 predniSONE 0 mg PO DIRECTED #18 tab 03/27/16 Allergies Allergy/AdvReac Type Severity Reaction Status Date / Time No Known Allergies Allergy Verified 05/19/16 00:15 Review of Systems ROS Statement: Those systems with pertinent positive or pertinent negative responses have been documented in the HPI. ROS Other: All systems not noted in ROS Statement are negative. Past Medical History Past Medical History: COPD, Deep Vein Thrombosis (DVT), GERD/Reflux, Hearing Disorder / Deafness, Osteoarthritis (OA), Vascular Disorder, Vascular Disorder Additional Past Medical History / Comment(s): CHRONIC BRONCHITIS. DVT of the right lower extremity in 2007 , peripheral vascular disease, wound bottom rt foot, cast on rt footdependent. wound rt foot History of Any Multi-Drug Resistant Organisms: MRSA Date of last positivie culture/infection: 2007 MDRO Source:: NECK Past Surgical History: Hernia Repair, Orthopedic Surgery Additional Past Surgical History / Comment(s): Bilateral femoral bypass surgery , arthroscopic left knee surgery, bilateral inguinal hernia repair, partial left great toe excision/amputation . Past Anesthesia/Blood Transfusion Reactions: No Reported Reaction Past Psychological History: Anxiety Smoking Status: Current every day smoker Past Alcohol Use History: Occasional Additional Past Alcohol Use History / Comment(s): smoker since age 18 , 1 PPD Past Drug Use History: Marijuana Additional Drug Use History / Comment(s): occ use - Past Family History Brother(s) Family Medical History: Coronary Artery Disease (CAD) Additional Family Medical History / Comment(s): heart attack/cabg Mother Family Medical History: Deep Vein Thrombosis (DVT) General Exam - General Exam Comments Initial Comments: This is a well-developed well-nourished awake alert oriented history male he is demonstrating respiratory distress Limitations: no limitations General appearance: alert, in no apparent distress Head exam: Present: atraumatic, normocephalic, normal inspection Eye exam: Present: normal appearance, PERRL, EOMI. Absent: scleral icterus, conjunctival injection, periorbital swelling ENT exam: Present: normal exam, mucous membranes moist Neck exam: Present: normal inspection. Absent: tenderness, meningismus, lymphadenopathy Respiratory exam: Present: wheezes, accessory muscle use, decreased breath sounds Cardiovascular Exam: Present: tachycardia Course Vital Signs 05/19/16 05/19/16 05/19/16 00:13 00:51 00:57 Temperature 98.7 F Pulse Rate 100 87 87 Respiratory 20 Rate Blood Pressure 126/72 O2 Sat by Pulse 89 L Oximetry 05/19/16 01:22 Temperature Pulse Rate 81 Respiratory 18 Rate Blood Pressure 119/61 O2 Sat by Pulse 95 Oximetry - Reevaluation(s) Reevaluation #1: 05/19/16 03:05 Patient minimal improvement with the treatment rendered thus far. Medical Decision Making - Medical Decision Making I did evaluate the patient several occasions after the initial treatment. He demonstrated no improvement he still short of breath with diffuse wheezing. He will be admitted I did discuss the case with Dr. Terell Mensah will be consulted - Lab Data Result diagrams: 05/19/16 00:45 05/19/16 00:45 Lab Results 05/19/16 05/19/16 05/19/16 Range/Units 00:45 00:45 00:45 WBC 8.1 (3.8-10.6) k/uL RBC 5.48 (4.30-5.90) m/uL Hgb 16.3 (13.0-17.5) gm/dL Hct 50.1 (39.0-53.0) % MCV 91.5 (80.0-100.0) fL MCH 29.7 (25.0-35.0) pg MCHC 32.4 (31.0-37.0) g/dL RDW 14.6 (11.5-15.5) % Plt Count 169 (150-450) k/uL Neutrophils % 60 % Lymphocytes % 23 % Monocytes % 7 % Eosinophils % 6 % Basophils % 1 % Neutrophils # 4.8 (1.3-7.7) k/uL Lymphocytes # 1.8 (1.0-4.8) k/uL Monocytes # 0.6 (0-1.0) k/uL Eosinophils # 0.5 (0-0.7) k/uL Basophils # 0.1 (0-0.2) k/uL PT (9.0-12.0) sec INR (<1.1) APTT (22.0-30.0) sec Sodium 140 (137-145) mmol/L Potassium 3.5 (3.5-5.1) mmol/L Chloride 102 (98-107) mmol/L Carbon Dioxide 27 (22-30) mmol/L Anion Gap 11 mmol/L BUN 12 (9-20) mg/dL Creatinine 1.00 (0.66-1.25) mg/dL Est GFR (MDRD) Af Amer >60 (>60 ml/min/1.73 sqM) Est GFR (MDRD) Non-Af >60 (>60 ml/min/1.73 sqM) Glucose 146 H (74-99) mg/dL Calcium 8.9 (8.4-10.2) mg/dL Magnesium 1.1 L (1.6-2.3) mg/dL Total Bilirubin 0.5 (0.2-1.3) mg/dL AST 24 (17-59) U/L ALT 29 (21-72) U/L Alkaline Phosphatase 88 (38-126) U/L Total Creatine Kinase 73 (55-170) U/L CK-MB (CK-2) 1.2 (0.0-2.4) ng/mL CK-MB (CK-2) Rel Index 1.6 Troponin I <0.012 (0.000-0.034) ng/mL NT-Pro-B Natriuret Pep pg/mL Total Protein 6.8 (6.3-8.2) g/dL Albumin 3.6 (3.5-5.0) g/dL 05/19/16 05/19/16 Range/Units 00:45 00:45 WBC (3.8-10.6) k/uL RBC (4.30-5.90) m/uL Hgb (13.0-17.5) gm/dL Hct (39.0-53.0) % MCV (80.0-100.0) fL MCH (25.0-35.0) pg MCHC (31.0-37.0) g/dL RDW (11.5-15.5) % Plt Count (150-450) k/uL Neutrophils % % Lymphocytes % % Monocytes % % Eosinophils % % Basophils % % Neutrophils # (1.3-7.7) k/uL Lymphocytes # (1.0-4.8) k/uL Monocytes # (0-1.0) k/uL Eosinophils # (0-0.7) k/uL Basophils # (0-0.2) k/uL PT 13.6 H (9.0-12.0) sec INR 1.4 (<1.1) APTT 29.2 (22.0-30.0) sec Sodium (137-145) mmol/L Potassium (3.5-5.1) mmol/L Chloride (98-107) mmol/L Carbon Dioxide (22-30) mmol/L Anion Gap mmol/L BUN (9-20) mg/dL Creatinine (0.66-1.25) mg/dL Est GFR (MDRD) Af Amer (>60 ml/min/1.73 sqM) Est GFR (MDRD) Non-Af (>60 ml/min/1.73 sqM) Glucose (74-99) mg/dL Calcium (8.4-10.2) mg/dL Magnesium (1.6-2.3) mg/dL Total Bilirubin (0.2-1.3) mg/dL AST (17-59) U/L ALT (21-72) U/L Alkaline Phosphatase (38-126) U/L Total Creatine Kinase (55-170) U/L CK-MB (CK-2) (0.0-2.4) ng/mL CK-MB (CK-2) Rel Index Troponin I (0.000-0.034) ng/mL NT-Pro-B Natriuret Pep 64 pg/mL Total Protein (6.3-8.2) g/dL Albumin (3.5-5.0) g/dL - EKG Data -: EKG Interpreted by Dc EKG shows normal: sinus rhythm, axis, intervals, QRS complexes, ST-T waves ( Sinus rhythm with rate of 90 UT interval 144 QRS duration 90 QT/QTC of 32/[address]-T wave.) - Radiology Data Radiology results: report reviewed (Did review the x-rays report no acute findings.), image reviewed Critical Care Time Critical Care Time: Yes Critical Care Time: 35 minutes of critical care time which includes initial presentation with history physical lab and x-rays. Multiple reevaluation patient without responsive therapy noted. Discussed with the admitting physician. Admission orders documentation the above. Disposition Clinical Impression: Acute exacerbation of chronic obstructive airways disease, Adult respiratory distress syndrome, Hypoxemia Disposition: ADMITTED IP TO THIS [facility] Condition: Stable
[2016-05-19] MEDS ORDERED: IPRATROPIUM-ALBUTEROL 3 ML NEB INHALATION STA ×2 (00:50→01:16)
[2016-05-19 00:59] LABS: Basophils # (A) 0.1 k/uL (0-0.2); Basophils % (A) 1 %; CH 30.3; CHCM 33.3; Eosinophils # (A) 0.5 k/uL (0-0.7); Eosinophils % (A) 6 %; HCT 50.1 % (39.0-53.0); HDW 2.86; HGB 16.3 gm/dL (13.0-17.5); Luc # (Auto) 0.28; Luc % (Auto) 4; Lymphocytes # (A) 1.8 k/uL (1.0-4.8); Lymphocytes % (A) 23 %; MCH 29.7 pg (25.0-35.0); MCHC 32.4 g/dL (31.0-37.0); MCV 91.5 fL (80.0-100.0); Mean Platelet Volume 8.9; Monocytes # (A) 0.6 k/uL (0-1.0); Monocytes % (A) 7 %; Neutrophils # (A) 4.8 k/uL (1.3-7.7); Neutrophils % (A) 60 %; RBC 5.48 m/uL (4.30-5.90); RDW 14.6 % (11.5-15.5); WBC 8.1 k/uL (3.8-10.6); WBC (Perox) 8.16
[2016-05-19 01:03] LABS: ALT 29 U/L (21-72); AST 24 U/L (17-59); Alkaline Phosphatase 88 U/L (38-126); Anion Gap 11 mmol/L; Blood Urea Nitrogen 12 mg/dL (9-20); Calcium 8.9 mg/dL (8.4-10.2); Carbon Dioxide 27 mmol/L (22-30); Chloride 102 mmol/L (98-107); Glucose 146 mg/dL (74-99); Magnesium 1.1 mg/dL (1.6-2.3); Non-African American GFR(MDRD) >60 (>60 ml/min/1.73 sqM); Potassium 3.5 mmol/L (3.5-5.1); Sodium 140 mmol/L (137-145); Total Bilirubin 0.5 mg/dL (0.2-1.3); Total Protein 6.8 g/dL (6.3-8.2)
[2016-05-19] MEDS ORDERED: ACETAMINOPHEN IV (For NPO) 1,000 MG in SALINE 1 100ML.BAG IVPB STA (01:04)
[2016-05-19 01:07] LABS: INR 1.4 (<1.1); Partial Thromboplastin Time 29.2 sec (22.0-30.0); Prothrombin Time 13.6 sec (9.0-12.0)
[2016-05-19 01:21] LABS: Creatine Kinase 73 U/L (55-170)
[2016-05-19 01:33] LABS: Creatine Kinase MB 1.2 ng/mL (0.0-2.4); Troponin I <0.012 ng/mL (0.000-0.034)
--- NOTE | 2016-05-19 01:51 | XR ---
INDICATION: Difficulty breathing. COMPARISON: CXR 03/25/16 FINDING: PA and lateral views of the chest are provided. Redemonstrated are linear bibasilar opacities raising the possibility of bronchial wall thickening and associated subsegmental atelectasis. There is no pleural effusion or pneumothorax. Heart size and pulmonary vascularity are normal. Regional skeleton appears intact. IMPRESSION: Query bronchial wall thickening and subsegmental atelectasis.
[2016-05-19] MEDS ORDERED: DIAZEPAM 5 MG TAB PO PRN (03:09)
[2016-05-19] MEDS ORDERED: HYDROcodone/APAP 10-325MG 1 EACH TAB PO PRN (03:09)
[2016-05-19] MEDS ORDERED: IPRATROPIUM-ALBUTEROL 3 ML NEB INHALATION SCH (04:00)
[2016-05-19] MEDS: SODIUM CHLORIDE 0.9% 1,000 ML IV SCH ×3 (04:21→23:54)
[2016-05-19] MEDS: methylPREDNISolone SOD SUCCI 125 MG/2 ML VIAL IV SCH ×4 (06:17→23:53)
[2016-05-19 07:14] LABS: Glucose,Whole Blood 230 mg/dL (75-99)
[2016-05-19] MEDS: TOPIRAMATE 25 MG TAB PO SCH ×2 (08:20→20:45)
[2016-05-19] MEDS: COLCHICIN-PROBENECID 0.5-500MG 1 EACH TAB PO SCH (08:21)
[2016-05-19] MEDS: ZINC SULFATE 220 MG CAP PO SCH (08:21)
[2016-05-19] MEDS: INSULIN LISPRO (humaLOG) 300 UNIT/3 ML VIAL SQ SCH ×4 (08:21→20:52)
[2016-05-19] MEDS: MAGNESIUM OXIDE 400 MG TAB PO SCH (08:22)
[2016-05-19] MEDS: IPRATROPIUM-ALBUTEROL 3 ML NEB INHALATION SCH ×4 (08:38→19:44)
[2016-05-19] MEDS: TIOTROPIUM 18 MCG/PUFF INHALER INHALATION SCH (08:41)
--- NOTE | 2016-05-19 11:45 | P.CNPUL ---
History of Present Illness Consult date: 05/19/16 Requesting physician: Malik Bui Reason for consult: COPD Chief complaint: Shortness of breath History of present illness: This is a 61-year-old male who is being evaluated and examined today on the fourth floor. The patient came into the emergency room last night with increasing shortness of breath over the past few days he also had some intermittent coughing with clear phlegm and chest tightness, with exertional dyspnea. He denies any fever, chills, sweats, nausea or vomiting. He has his own pulse ox meter at home and stated he is in the high 80s to low 90s per his own monitor at home. Upon examination the patient is lying down in bed, resting , no specific complaints at this time. He currently is on 2-3 L of supplemental oxygen and he does not use oxygen at home. Review of Systems A 14 point review of systems has been completed and is negative other than what is noted in the HPI. Past Medical History Past Medical History: COPD, Deep Vein Thrombosis (DVT), GERD/Reflux, Hearing Disorder / Deafness, Osteoarthritis (OA), Vascular Disorder, Vascular Disorder Additional Past Medical History / Comment(s): CHRONIC BRONCHITIS. DVT of the right lower extremity in 2007 , peripheral vascular disease, wound bottom rt foot, cast on rt footdependent. wound rt foot History of Any Multi-Drug Resistant Organisms: MRSA Date of last positivie culture/infection: 2007 MDRO Source:: NECK Past Surgical History: Hernia Repair, Orthopedic Surgery Additional Past Surgical History / Comment(s): Bilateral femoral bypass surgery , arthroscopic left knee surgery, bilateral inguinal hernia repair, partial left great toe excision/amputation . Past Anesthesia/Blood Transfusion Reactions: No Reported Reaction Past Psychological History: Anxiety Smoking Status: Current every day smoker Past Alcohol Use History: Occasional Additional Past Alcohol Use History / Comment(s): smoker since age 18 , 1 PPD Past Drug Use History: Marijuana Additional Drug Use History / Comment(s): occ use - Past Family History Brother(s) Family Medical History: Coronary Artery Disease (CAD) Additional Family Medical History / Comment(s): heart attack/cabg Mother Family Medical History: Deep Vein Thrombosis (DVT) Medications and Allergies Home Medications Medication Instructions Recorded Confirmed Type Citalopram Hydrobromide [CeleXA] 20 mg PO HS 12/15/14 05/19/16 History Metoprolol Tartrate 25 mg PO HS 12/15/14 05/19/16 History Zinc Gluconate [Zinc] 50 mg PO DAILY 12/15/14 05/19/16 History Albuterol Nebulized [Ventolin 1 applicate INHALATION RT-Q6H PRN 07/18/15 History Nebulized] Magnesium Oxide [Mag-Ox] 250 mg PO DAILY 09/21/15 05/19/16 History Tiotropium 18 Mcg/Puff [Spiriva] 1 cap INHALATION RT-DAILY 09/21/15 05/19/16 History Topiramate [Topiramate] 25 mg PO BID 09/21/15 05/19/16 History Warfarin [Coumadin] 5 mg PO HS 09/21/15 05/19/16 History HYDROcodone/APAP 10-325MG [[place] 1 tab PO Q6H PRN 01/18/16 05/19/16 History 10-325] Budesonide/Formoterol Fumarate 2 puff INHALATION RT-BID 02/15/16 05/19/16 History [Symbicort 80-4.5 Mcg Inhaler] Colchicin-Probenecid 0.5-500Mg 1 tab PO DAILY 02/15/16 05/19/16 History [Colbenemid] Diazepam [Valium] 5 mg PO DAILY PRN 02/15/16 05/19/16 History Allergies Allergy/AdvReac Type Severity Reaction Status Date / Time No Known Allergies Allergy Verified 05/19/16 00:15 Physical Exam Vitals: Vital Signs Temp Pulse Pulse Resp BP Pulse Ox 05/19/16 08:51 88 05/19/16 08:43 80 95 05/19/16 07:00 96.2 F L 77 16 121/64 95 05/19/16 04:05 86 16 136/76 94 L Intake and Output 05/18/16 05/19/16 05/19/16 22:59 06:59 14:59 Other: Voiding Method Toilet # Voids 1 Weight 106.5 kg GENERAL EXAM: Alert, active, comfortable in no apparent distress. HEAD: Normocephalic. EYES: Normal reaction of pupils, equal size. NOSE: Clear with pink turbinates. THROAT: No erythema or exudates. NECK: No masses, no JVD. CHEST: No chest wall deformity. LUNGS: Breath sounds are coarse bilaterally with inspiratory and expiratory wheezes. CVS: S1 and S2 normal with no audible mumurs, regular rhythm. ABDOMEN: No hepatosplenomegaly, normal bowel sounds, no guarding or rigidity. EXTREMITIES: No edema noted, pedal pulses palpable. SKIN: No rashes CENTRAL NERVOUS SYSTEM: No focal deficits, tone is normal in all 4 extremities. Results - Laboratory Findings CBC and BMP: 05/19/16 00:45 05/19/16 00:45 PT/INR, D-dimer PT 13.6 sec (9.0-12.0) H 05/19/16 00:45 INR 1.4 (<1.1) 05/19/16 00:45 Abnormal lab findings: Abnormal Labs 05/19/16 07:12 POC Glucose (mg/dL) 230 H - Diagnostic Findings Chest x-ray: report reviewed, image reviewed Assessment and Plan Plan: Assessment Acute exacerbation of COPD Acute on chronic bronchitis Hypoxemia Current nicotine use History of DVT Plan We will continue the patient on IV steroids and antibiotics. Continue his updrafts and we will add budesonide twice a day. Continue to monitor patient's blood sugars while on steroids. Continue supportive care. He is already on warfarin per home medications which we will continue for for DVT prophylaxis along with SCDs. GI prophylaxis has been initiated with oral Pepcid. We will continue to monitor labs and adjust treatment as necessary.
[2016-05-19 11:57] LABS: Glucose,Whole Blood 203 mg/dL (75-99)
[2016-05-19] MEDS: NICOTINE 14MG/24HR PATCH TRANSDERM SCH (13:42)
[2016-05-19 16:54] LABS: Glucose,Whole Blood 218 mg/dL (75-99)
[2016-05-19] MEDS: HYDROcodone/APAP 10-325MG 1 EACH TAB PO PRN (18:33)
[2016-05-19] MEDS: DIAZEPAM 5 MG TAB PO PRN (18:33)
[2016-05-19] MEDS: WARFARIN 3 MG TAB PO SCH (18:34)
[2016-05-19] MEDS: BUDESONIDE 1 MG/2 ML NEBU INHALATION SCH (19:44)
[2016-05-19] MEDS: METOPROLOL TARTRATE 25 MG TAB PO SCH (20:45)
[2016-05-19] MEDS: CITALOPRAM HYDROBROMIDE 20 MG TAB PO SCH (20:45)
[2016-05-19 20:47] LABS: Glucose,Whole Blood 275 mg/dL (75-99)
[2016-05-19] MEDS ORDERED: WARFARIN 5 MG TAB PO SCH (21:00)
[2016-05-20] MEDS: DIAZEPAM 5 MG TAB PO PRN ×2 (02:22→18:15)
[2016-05-20] MEDS: methylPREDNISolone SOD SUCCI 125 MG/2 ML VIAL IV SCH ×4 (05:14→23:02)
[2016-05-20 07:41] LABS: Glucose,Whole Blood 145 mg/dL (75-99)
[2016-05-20] MEDS: IPRATROPIUM-ALBUTEROL 3 ML NEB INHALATION SCH (07:53)
[2016-05-20] MEDS: BUDESONIDE 1 MG/2 ML NEBU INHALATION SCH (07:53)
[2016-05-20] MEDS: TIOTROPIUM 18 MCG/PUFF INHALER INHALATION SCH (07:56)
--- NOTE | 2016-05-20 08:51 | P.PN ---
Subjective Principal diagnosis: COPD exacerbation This is a pleasant 61-year-old white male essentially admitted for exacerbation of COPD. The patient states increased activity. He still has some wheezing but he seems to ambulate appropriately. Appreciate pulmonology input. No new voiding difficulties. Objective - Vital Signs Vital signs: Vital Signs Temp 97.2 F L 05/20/16 07:00 Pulse 93 05/20/16 07:00 Resp 20 05/20/16 07:00 BP 112/53 05/20/16 07:00 Pulse Ox 96 05/20/16 07:55 Intake & Output 05/19/16 05/20/16 05/20/16 18:59 06:59 18:59 Intake Total 500 Balance 500 Intake: Oral 500 Other: # Voids 3 1 - Constitutional General appearance: Present: obese - EENT Eyes: Absent: abnormal pupil - Respiratory Respiratory: bilateral: diminished, wheezing - Cardiovascular Rhythm: irregularly irregular Heart sounds: normal: S1, S2 - Gastrointestinal General gastrointestinal: Absent: tenderness - Integumentary Integumentary: Absent: rash - Neurologic Neurologic: Present: CNII-XII intact - Musculoskeletal Musculoskeletal: Present: gait normal - Labs CBC & Chem 7: 05/19/16 00:45 05/19/16 00:45 Labs: Abnormal Lab Results - Last 24 Hours (Table) 05/19/16 05/19/16 05/19/16 Range/Units 11:53 16:51 20:44 POC Glucose (mg/dL) 203 H 218 H 275 H (75-99) mg/dL 05/20/16 Range/Units 07:26 POC Glucose (mg/dL) 145 H (75-99) mg/dL Assessment and Plan (1) Acute exacerbation of chronic obstructive airways disease Status: Acute (2) COPD exacerbation Status: Acute Plan: Continue current regimen of son Medrol and antibiotic treatment. Anticipate discharge in a.m. Time with Patient: Less than 30
[2016-05-20] MEDS: COLCHICIN-PROBENECID 0.5-500MG 1 EACH TAB PO SCH (09:00)
[2016-05-20] MEDS: HYDROcodone/APAP 10-325MG 1 EACH TAB PO PRN (09:00)
[2016-05-20] MEDS: FAMOTIDINE 20 MG TAB PO SCH (09:00)
[2016-05-20] MEDS: MAGNESIUM OXIDE 400 MG TAB PO SCH (09:00)
[2016-05-20] MEDS: NICOTINE 14MG/24HR PATCH TRANSDERM SCH (09:00)
[2016-05-20] MEDS: ZINC SULFATE 220 MG CAP PO SCH (09:00)
[2016-05-20] MEDS: TOPIRAMATE 25 MG TAB PO SCH ×2 (09:00→21:18)
[2016-05-20] MEDS: INSULIN LISPRO (humaLOG) 300 UNIT/3 ML VIAL SQ SCH ×4 (09:01→21:19)
[2016-05-20 09:05] LABS: Basophils % (A) 0 %; CH 29.8; CHCM 32.4; Eosinophils % (A) 0 %; HCT 49.4 % (39.0-53.0); HGB 15.6 gm/dL (13.0-17.5); Luc # (Auto) 0.09; Luc % (Auto) 1; Lymphocytes # (A) 0.6 k/uL (1.0-4.8); Lymphocytes % (A) 5 %; MCH 29.1 pg (25.0-35.0); MCHC 31.5 g/dL (31.0-37.0); MCV 92.5 fL (80.0-100.0); Mean Platelet Volume 8.1; Monocytes # (A) 0.4 k/uL (0-1.0); Monocytes % (A) 3 %; Neutrophils # (A) 11.6 k/uL (1.3-7.7); Neutrophils % (A) 91 %; RBC 5.34 m/uL (4.30-5.90); RDW 14.6 % (11.5-15.5); WBC 12.7 k/uL (3.8-10.6); WBC (Perox) 12.94
[2016-05-20 09:22] LABS: ALT 17 U/L (21-72); AST 17 U/L (17-59); Alkaline Phosphatase 84 U/L (38-126); Anion Gap 11 mmol/L; Blood Urea Nitrogen 12 mg/dL (9-20); Calcium 8.6 mg/dL (8.4-10.2); Carbon Dioxide 28 mmol/L (22-30); Chloride 103 mmol/L (98-107); Glucose 192 mg/dL (74-99); Magnesium 1.2 mg/dL (1.6-2.3); Non-African American GFR(MDRD) >60 (>60 ml/min/1.73 sqM); Potassium 4.3 mmol/L (3.5-5.1); Sodium 142 mmol/L (137-145); Total Bilirubin 0.4 mg/dL (0.2-1.3); Total Protein 6.3 g/dL (6.3-8.2)
[2016-05-20 09:51] LABS: INR 1.2 (<1.1); Prothrombin Time 12.2 sec (9.0-12.0)
[2016-05-20] MEDS: SODIUM CHLORIDE 0.9% 1,000 ML IV SCH ×2 (10:12→21:17)
--- NOTE | 2016-05-20 11:10 | P.PN ---
Subjective This is a 61-year-old man who is being evaluated and examined today in the forefoot. The patient came into the emergency room on 05/19/2016 with increasing shortness of breath over the past few days and some intermittent coughing with clear phlegm and chest tightness he also exhibited some exertional dyspnea. He denied any fever or chills sweats nausea or vomiting at that time. He does have his own pulse ox meter at home that he uses and he states he was in the high 80s to low 90s per his home monitor. On examination today the patient is laying down in bed resting. He currently is using 2-3 L of supplemental oxygen. The patient continues to complain of some coughing with congestion. Objective - Vital Signs Vital signs: Vital Signs Temp 97.2 F L 05/20/16 07:00 Pulse 93 05/20/16 07:00 Resp 20 05/20/16 07:00 BP 112/53 05/20/16 07:00 Pulse Ox 96 05/20/16 07:55 Intake & Output 05/19/16 05/20/16 05/20/16 18:59 06:59 18:59 Intake Total 500 Balance 500 Intake: Oral 500 Other: # Voids 3 1 - Exam GENERAL EXAM: Alert, active, comfortable in no apparent distress. HEAD: Normocephalic. EYES: Normal reaction of pupils, equal size. NOSE: Clear with pink turbinates. THROAT: No erythema or exudates. NECK: No masses, no JVD. CHEST: No chest wall deformity. LUNGS: Breath sounds are coarse bilaterally with inspiratory and expiratory wheezes. CVS: S1 and S2 normal with no audible mumurs, regular rhythm. ABDOMEN: No hepatosplenomegaly, normal bowel sounds, no guarding or rigidity. EXTREMITIES: No edema noted, pedal pulses palpable. SKIN: No rashes CENTRAL NERVOUS SYSTEM: No focal deficits, tone is normal in all 4 extremities. - Labs CBC & Chem 7: 05/20/16 08:36 05/20/16 08:36 Labs: Abnormal Lab Results - Last 24 Hours (Table) 05/19/16 05/19/16 05/19/16 Range/Units 11:53 16:51 20:44 WBC (3.8-10.6) k/uL Neutrophils # (1.3-7.7) k/uL Lymphocytes # (1.0-4.8) k/uL PT (9.0-12.0) sec Glucose (74-99) mg/dL POC Glucose (mg/dL) 203 H 218 H 275 H (75-99) mg/dL Magnesium (1.6-2.3) mg/dL ALT (21-72) U/L Albumin (3.5-5.0) g/dL 05/20/16 05/20/16 05/20/16 Range/Units 07:26 08:36 08:36 WBC 12.7 H (3.8-10.6) k/uL Neutrophils # 11.6 H (1.3-7.7) k/uL Lymphocytes # 0.6 L (1.0-4.8) k/uL PT (9.0-12.0) sec Glucose 192 H (74-99) mg/dL POC Glucose (mg/dL) 145 H (75-99) mg/dL Magnesium 1.2 L (1.6-2.3) mg/dL ALT 17 L (21-72) U/L Albumin 3.3 L (3.5-5.0) g/dL 05/20/16 Range/Units 09:04 WBC (3.8-10.6) k/uL Neutrophils # (1.3-7.7) k/uL Lymphocytes # (1.0-4.8) k/uL PT 12.2 H (9.0-12.0) sec Glucose (74-99) mg/dL POC Glucose (mg/dL) (75-99) mg/dL Magnesium (1.6-2.3) mg/dL ALT (21-72) U/L Albumin (3.5-5.0) g/dL Assessment and Plan Plan: Assessment Acute exacerbation of COPD Acute on chronic bronchitis Hypoxemia Current nicotine use History of DVT Plan We will continue the patient on IV steroids and antibiotics. Continue with his current updraft treatments, we will also add Singulair at at bedtime. Continue to monitor patient's blood sugars while on steroids. Continue supportive care. We will continue to monitor labs and adjust treatment as necessary. I performed an examination of the patient and discussed their management with the nurse practitioner. I have reviewed the nurse practitioner's note and agree with the documented findings and plan of care.
[2016-05-20] MEDS: IPRATROPIUM-ALBUTEROL 3 ML NEB INHALATION PRN ×3 (11:44→21:24)
[2016-05-20 12:23] LABS: Glucose,Whole Blood 202 mg/dL (75-99)
[2016-05-20 17:11] LABS: Glucose,Whole Blood 203 mg/dL (75-99)
[2016-05-20] MEDS: WARFARIN 3 MG TAB PO SCH (17:58)
[2016-05-20 20:42] LABS: Glucose,Whole Blood 278 mg/dL (75-99)
[2016-05-20] MEDS ORDERED: MONTELUKAST 10 MG TAB PO SCH (21:00)
[2016-05-20] MEDS: CITALOPRAM HYDROBROMIDE 20 MG TAB PO SCH (21:18)
[2016-05-20] MEDS: METOPROLOL TARTRATE 25 MG TAB PO SCH (21:18)
[2016-05-21] MEDS: methylPREDNISolone SOD SUCCI 125 MG/2 ML VIAL IV SCH (05:19)
[2016-05-21] MEDS: SODIUM CHLORIDE 0.9% 1,000 ML IV SCH (05:19)
[2016-05-21 06:47] LABS: Glucose,Whole Blood 133 mg/dL (75-99)
[2016-05-21] MEDS: IPRATROPIUM-ALBUTEROL 3 ML NEB INHALATION PRN (07:21)
[2016-05-21] MEDS: TIOTROPIUM 18 MCG/PUFF INHALER INHALATION SCH (07:21)
[2016-05-21 07:53] VITALS: BP 124/78; PULSE 85; RESP 20; TEMP 97.4
--- NOTE | 2016-05-21 08:08 | HP ---
DATE OF ADMISSION: Patient is a pleasant 61-year-old white male who was admitted to the emergency department who had acute onset of shortness of breath, wheezing, and unable to maintain oxygen saturations above 90. He has some chest tightness and some clear phlegm at this time. He is acutely short of breath. He was subsequently admitted to the hospital with further evaluation and pulmonary toilet. ALLERGIES: No known drug allergies. CURRENT MEDICATIONS: 1. Spiriva. 2. Coumadin. 3. Topamax. 4. Telephone. 5. Symbicort. 6. Valium. 7. ColBenemid 0.5/500 one daily. REVIEW OF SYSTEMS: He denies any nausea, vomiting. Denies any dizziness or lightheadedness. Denies any chest pain. Denies any stroke or paralysis. Admits to being previously on Coumadin for a DVT. Admits to occasional heartburn. PAST MEDICAL HISTORY: Significant for COPD, DVT, GERD, reflux, hearing loss, osteoarthritis, and poor circulation. PAST SURGICAL HISTORY: Significant for bilateral femoropopliteal bypass, arthroscopy of the left knee, bilateral inguinal hernia repair, a left toe amputation. SOCIAL: Current every day smoker, 1 pack per day since age 18. Positive marijuana use in the past and occasional alcohol. FAMILY HISTORY: His brother has heart disease and heart attack. His mother had a history of DVT. PHYSICAL EXAM: He is alert, answering questions appropriately, in mild distress and upset that he was admitted to the hospital. GENERAL: He is alert, oriented x3. Head is normocephalic and atraumatic. HEART: Regular rate and rhythm. EYES: Pupils equal, round and reactive to light. Neck is supple. No JVD. LUNGS: Bilateral wheezing, expiratory and inspiratory with diminished breath sounds bilateral. ABDOMEN: Soft, nontender. No rebound, rigidity, or guarding. EXTREMITIES: No cyanosis, clubbing or jaundice, amputated left great toe. IMPRESSION: 1. Acute exacerbation of chronic obstructive pulmonary disease. 2. Purulent tracheobronchitis. 3. Adult respiratory distress syndrome with hypoxemia. 4. Acute on chronic bronchitis. 5. Gastroesophageal reflux disease. 6. Current nicotine use. 7. Previous history of deep venous thrombosis. PLAN: Admit patient, Pulmonary consultation, IV steroids, antibiotics and updrafts. Will continue to follow patient's hospital course. Dr. Bui to return in the morning to resume care.
[2016-05-21 08:11] LABS: CH 29.6; CHCM 32.3; HCT 47.6 % (39.0-53.0); HDW 2.79; HGB 15.1 gm/dL (13.0-17.5); MCH 29.1 pg (25.0-35.0); MCHC 31.7 g/dL (31.0-37.0); MCV 92.1 fL (80.0-100.0); Mean Platelet Volume 7.9; RBC 5.18 m/uL (4.30-5.90); RDW 14.5 % (11.5-15.5); WBC 13.3 k/uL (3.8-10.6)
[2016-05-21] MEDS: INSULIN LISPRO (humaLOG) 300 UNIT/3 ML VIAL SQ SCH (08:15)
[2016-05-21] MEDS: FAMOTIDINE 20 MG TAB PO SCH (08:15)
[2016-05-21] MEDS: NICOTINE 14MG/24HR PATCH TRANSDERM SCH (08:15)
[2016-05-21] MEDS: ZINC SULFATE 220 MG CAP PO SCH (08:15)
[2016-05-21] MEDS: COLCHICIN-PROBENECID 0.5-500MG 1 EACH TAB PO SCH (08:15)
[2016-05-21] MEDS: TOPIRAMATE 25 MG TAB PO SCH (08:15)
[2016-05-21] MEDS: MAGNESIUM OXIDE 400 MG TAB PO SCH (08:16)
[2016-05-21 08:31] LABS: ALT 19 U/L (21-72); AST 15 U/L (17-59); Alkaline Phosphatase 76 U/L (38-126); Anion Gap 7 mmol/L; Blood Urea Nitrogen 17 mg/dL (9-20); Calcium 8.2 mg/dL (8.4-10.2); Carbon Dioxide 31 mmol/L (22-30); Chloride 104 mmol/L (98-107); Glucose 136 mg/dL (74-99); Magnesium 1.5 mg/dL (1.6-2.3); Non-African American GFR(MDRD) >60 (>60 ml/min/1.73 sqM); Potassium 4.1 mmol/L (3.5-5.1); Sodium 142 mmol/L (137-145); Total Bilirubin 0.5 mg/dL (0.2-1.3); Total Protein 6.3 g/dL (6.3-8.2)
[2016-05-21] MEDS: DIAZEPAM 5 MG TAB PO PRN (08:31)
[2016-05-21] MEDS: HYDROcodone/APAP 10-325MG 1 EACH TAB PO PRN (08:31)
[2016-05-21] MEDS ORDERED: PNEUMOCOCCAL VACC-PNEUMOVAX 23 25 MCG/0.5 ML VIAL IM ONE (09:00)
--- NOTE | 2016-05-21 09:00 | P.DS ---
Providers Date of admission: 05/19/16 03:07 Attending physician: Malik Bui Primary care physician: Malik Bui - Discharge Diagnosis(es) (1) Acute exacerbation of chronic obstructive airways disease Current Visit: Yes Status: Acute (2) COPD exacerbation Current Visit: No Status: Acute Hospital Course: This is a discharge summary on a 61-year-old white male essentially discharged for exacerbation of COPD. He does require oxygen. He is requesting something for inflammation but I did tell him because of his blood thinning medication that this would not be desirable per se although, I will go ahead and send him on tapering dose of steroids. The patient was essentially admitted and had appropriate treatment by pulmonology. The patient is now stable tolerating diet although he did have his oxygen dropped about 87% after activity. We will sent home on home oxygen. The patient's follow-up in about one week. Patient Condition at Discharge: Stable Plan - Discharge Summary New Discharge Prescriptions: Albuterol Nebulized [Ventolin Nebulized] 2.5 mg INHALATION RT-QID PRN #120 nebu PRN Reason: Shortness Of Breath Montelukast [Singulair] 10 mg PO HS #30 tab Nicotine 14Mg/24Hr Patch [Habitrol] 1 patch TRANSDERM DAILY #30 patch predniSONE 0 mg PO DIRECTED #18 tab Discharge Medication List Citalopram Hydrobromide [CeleXA] 20 mg PO HS 12/15/14 [History] Metoprolol Tartrate 25 mg PO HS 12/15/14 [History] Tiotropium 18 Mcg/Puff [Spiriva] 1 cap INHALATION RT-DAILY 09/21/15 [History] Topiramate 25 mg PO BID 09/21/15 [History] Warfarin [Coumadin] 5 mg PO HS 09/21/15 [History] HYDROcodone/APAP 10-325MG [[place] 10-325] 1 tab PO Q6H PRN 01/18/16 [History] Budesonide/Formoterol Fumarate [Symbicort 80-4.5 Mcg Inhaler] 2 puff INHALATION RT-BID 02/15/16 [History] Colchicin-Probenecid 0.5-500Mg [Colbenemid] 1 tab PO DAILY 02/15/16 [History] Diazepam [Valium] 5 mg PO DAILY PRN 02/15/16 [History] Albuterol Nebulized [Ventolin Nebulized] 2.5 mg INHALATION RT-QID PRN #120 nebu 05/21/16 [Rx] Montelukast [Singulair] 10 mg PO HS #30 tab 05/21/16 [Rx] Nicotine 14Mg/24Hr Patch [Habitrol] 1 patch TRANSDERM DAILY #30 patch 05/21/16 [ Rx] predniSONE 0 mg PO DIRECTED #18 tab 05/21/16 [Rx] Follow up Appointment(s)/Referral(s): Ruben Mensah MD [STAFF PHYSICIAN] - 1 Week Malik Bui MD [Primary Care Provider] - 1 Week
--- NOTE | 2016-05-21 10:31 | P.PN ---
Subjective This is a 61-year-old man who is being evaluated and examined today in the forth floor. The patient came into the emergency room on 05/19/2016 with increasing shortness of breath over the past few days and some intermittent coughing with clear phlegm and chest tightness he also exhibited some exertional dyspnea. He denied any fever or chills sweats nausea or vomiting at that time. On examination today the patient is laying down in bed resting family at bedside. He currently is 2-3 L of oxygen. The patient continues to complain of some coughing with congestion however state that has significantly decreased. The patient will require oxygen upon discharge. Objective - Vital Signs Vital signs: Vital Signs Temp 97.4 F L 05/21/16 07:00 Pulse 78 05/21/16 07:33 Resp 20 05/21/16 08:00 BP 124/78 05/21/16 07:00 Pulse Ox 94 L 05/21/16 08:44 Intake & Output 05/20/16 05/21/16 05/21/16 18:59 06:59 18:59 Intake Total 680 Balance 680 Intake: Oral 680 Other: Voiding Method Toilet # Voids 3 1 - Exam GENERAL EXAM: Alert, active, comfortable in no apparent distress. HEAD: Normocephalic. EYES: Normal reaction of pupils, equal size. NOSE: Clear with pink turbinates. THROAT: No erythema or exudates. NECK: No masses, no JVD. CHEST: No chest wall deformity. LUNGS: Breath sounds are coarse bilaterally with faint expiratory wheezes. CVS: S1 and S2 normal with no audible mumurs, regular rhythm. ABDOMEN: No hepatosplenomegaly, normal bowel sounds, no guarding or rigidity. EXTREMITIES: No edema noted, pedal pulses palpable. SKIN: No rashes CENTRAL NERVOUS SYSTEM: No focal deficits, tone is normal in all 4 extremities. - Labs CBC & Chem 7: 05/21/16 07:30 05/21/16 07:30 Labs: Abnormal Lab Results - Last 24 Hours (Table) 05/20/16 05/20/16 05/20/16 Range/Units 11:58 17:05 20:30 WBC (3.8-10.6) k/uL Carbon Dioxide (22-30) mmol/L Glucose (74-99) mg/dL POC Glucose (mg/dL) 202 H 203 H 278 H (75-99) mg/dL Calcium (8.4-10.2) mg/dL Magnesium (1.6-2.3) mg/dL AST (17-59) U/L ALT (21-72) U/L Albumin (3.5-5.0) g/dL 05/21/16 05/21/16 05/21/16 Range/Units 06:46 07:30 07:30 WBC 13.3 H (3.8-10.6) k/uL Carbon Dioxide 31 H (22-30) mmol/L Glucose 136 H (74-99) mg/dL POC Glucose (mg/dL) 133 H (75-99) mg/dL Calcium 8.2 L (8.4-10.2) mg/dL Magnesium 1.5 L (1.6-2.3) mg/dL AST 15 L (17-59) U/L ALT 19 L (21-72) U/L Albumin 3.3 L (3.5-5.0) g/dL Assessment and Plan Plan: Assessment Acute exacerbation of COPD Acute on chronic bronchitis Hypoxemia Current nicotine use History of DVT Plan The patient is cleared for discharge from a pulmonary standpoint. Continue with his current updraft treatments, upon discharge. Continue supportive care. We will continue to monitor labs and adjust treatment as necessary. We will follow-up with patient in the office within one week of discharge. I performed an examination of the patient and discussed their management with the nurse practitioner. I have reviewed the nurse practitioner's note and agree with the documented findings and plan of care.
== END 2016-05-21 11:25 | disposition home or self-care (01) | DRG 192 ==
LOC: EC 00:04 → 4MS4W 03:07
PROVIDERS: ADMIT Family Medicine; ATTEND Family Medicine
PROC: 3E0234Z Introduction of Serum, Toxoid and Vaccine into Muscle, Percutaneous Approach (ICD-10-PCS; principal; 2016-05-21)
DX: J44.1 Chronic obstructive pulmonary disease with (acute) exacerbation (principal); Z99.81 Dependence on supplemental oxygen; I73.9 Peripheral vascular disease, unspecified; R00.0 Tachycardia, unspecified; F17.200 Nicotine dependence, unspecified, uncomplicated; R09.02 Hypoxemia; J44.0 Chronic obstructive pulmonary disease with (acute) lower respiratory infection; J20.9 Acute bronchitis, unspecified; M19.90 Unspecified osteoarthritis, unspecified site; F12.90 Cannabis use, unspecified, uncomplicated; K21.9 Gastro-esophageal reflux disease without esophagitis; F41.9 Anxiety disorder, unspecified; H91.90 Unspecified hearing loss, unspecified ear; Z86.718 Personal history of other venous thrombosis and embolism; Z82.49 Family history of ischemic heart disease and other diseases of the circulatory system; Z79.899 Other long term (current) drug therapy; Z79.01 Long term (current) use of anticoagulants; Z16.24 Resistance to multiple antibiotics; Z23 Encounter for immunization; Z79.891 Long term (current) use of opiate analgesic; Z79.51 Long term (current) use of inhaled steroids; Z86.14 Personal history of Methicillin resistant Staphylococcus aureus infection; Z89.412 Acquired absence of left great toe
CPT/HCPCS: 36415; 71020; 80053; 82550; 82553; 83605; 83735; 83880; 84484; 85025; 85027; 85610; 85730; 90732; 93005; 94640; 94760; 96361; 96374; 96375; 99291

== ENCOUNTER 2016-07-01 18:32 | Emergency (ER) | payer MEDICARE, BC ==
[2016-07-01] MEDS ORDERED: IPRATROPIUM-ALBUTEROL 3 ML NEB INHALATION STA ×2 (18:48→19:55)
--- NOTE | 2016-07-01 19:04 | ED ---
General Adult HPI - General Chief complaint: Shortness of Breath Stated complaint: Diff breathing Time Seen by Provider: 07/01/16 18:44 Source: patient, RN notes reviewed, old records reviewed Mode of arrival: wheelchair Limitations: no limitations - History of Present Illness Initial comments: 61-year-old male with history of COPD presenting for shortness of breath. Patient states he's had nonproductive cough and worsening shortness of breath over the past 4 days. He states he was treated several weeks ago by his primary doctor with antibiotics and steroids with improvement of symptoms that time. However he states he never felt completely improved after being off the steroids his symptoms worsened again. He states he is having some chest pain and back pain associated. He does use oxygen at home and has been using up to 4 L without significant improvement of his shortness of breath. He has been using his inhalers without improvement. - Related Data Home Medications Medication Instructions Recorded Confirmed Citalopram Hydrobromide [CeleXA] 20 mg PO HS 12/15/14 07/01/16 Metoprolol Tartrate 25 mg PO HS 12/15/14 07/01/16 Tiotropium 18 Mcg/Puff [Spiriva] 1 cap INHALATION RT-DAILY 09/21/15 07/01/16 Warfarin [Coumadin] 5 mg PO HS 09/21/15 07/01/16 HYDROcodone/APAP 10-325MG [[place] 1 tab PO Q6H PRN 01/18/16 07/01/16 10-325] Budesonide/Formoterol Fumarate 2 puff INHALATION RT-BID 02/15/16 07/01/16 [Symbicort 80-4.5 Mcg Inhaler] Colchicin-Probenecid 0.5-500Mg 1 tab PO DAILY 02/15/16 07/01/16 [Colbenemid] Diazepam [Valium] 5 mg PO DAILY PRN 02/15/16 07/01/16 Previous Rx's Medication Instructions Recorded Albuterol Nebulized [Ventolin 2.5 mg INHALATION RT-QID PRN #120 05/21/16 Nebulized] nebu Montelukast [Singulair] 10 mg PO HS #30 tab 05/21/16 Azithromycin [Zithromax] 250 mg PO DAILY #6 tab 07/01/16 predniSONE 40 mg PO DAILY #14 tab 07/01/16 Allergies Allergy/AdvReac Type Severity Reaction Status Date / Time No Known Allergies Allergy Verified 07/01/16 19:11 Review of Systems ROS Statement: Those systems with pertinent positive or pertinent negative responses have been documented in the HPI. ROS Other: All systems not noted in ROS Statement are negative. Past Medical History Past Medical History: COPD, Deep Vein Thrombosis (DVT), GERD/Reflux, Hearing Disorder / Deafness, Osteoarthritis (OA), Vascular Disorder, Vascular Disorder Additional Past Medical History / Comment(s): CHRONIC BRONCHITIS. DVT of the right lower extremity in 2007 , peripheral vascular disease, wound bottom rt foot, cast on rt footdependent. wound rt foot History of Any Multi-Drug Resistant Organisms: MRSA Date of last positivie culture/infection: 2007 MDRO Source:: NECK Past Surgical History: Hernia Repair, Orthopedic Surgery Additional Past Surgical History / Comment(s): Bilateral femoral bypass surgery , arthroscopic left knee surgery, bilateral inguinal hernia repair, partial left great toe excision/amputation . Past Anesthesia/Blood Transfusion Reactions: No Reported Reaction Past Psychological History: Anxiety Smoking Status: Current every day smoker Past Alcohol Use History: Occasional Additional Past Alcohol Use History / Comment(s): smoker since age 18 , 1 PPD Past Drug Use History: Marijuana Additional Drug Use History / Comment(s): occ use - Past Family History Brother(s) Family Medical History: Coronary Artery Disease (CAD) Additional Family Medical History / Comment(s): heart attack/cabg Mother Family Medical History: Deep Vein Thrombosis (DVT) General Exam - General Exam Comments Initial Comments: General: Awake and Alert. No acute distress. Does not appear acutely ill. Obese. Eyes: LUNA, EOM intact. No nystagmus. No scleral icterus. HENT: Atraumatic, normocephalic. Mucous membranes moist. Trachea midline. Neck: The neck is supple, there is no tenderness or JVD. Cardiovascular: Regular rate and rhythm. No murmur, rub, or gallop is appreciated. Distal pulses intact. Respiratory: Lungs are clear to auscultation bilaterally. Diffuse wheezes. No rales, rhonchi. Tachypnea. Mild respiratory distress. Gastrointestinal: Soft, Nontender. No rebound or guarding. Non-distended. No masses or organomegaly noted. No CVA tenderness. Musculoskeletal: No tenderness. Normal ROM. No gross deformity. No strength deficits. Neurological: A&Ox3. CN II-XII grossly intact, There are no obvious motor or sensory deficits. Coordination appears grossly intact. Speech is normal. Skin: Skin is warm and dry and no rashes or lesions are noted. Psychiatric: Cooperative, appropriate mood & affect, normal judgment. Limitations: no limitations Course Vital Signs 07/01/16 07/01/16 07/01/16 18:34 19:26 19:37 Temperature 97.9 F Pulse Rate 102 H 90 90 Respiratory 28 H Rate Blood Pressure 141/78 O2 Sat by Pulse 94 L Oximetry 07/01/16 07/01/16 07/01/16 20:41 21:03 21:37 Temperature 98.2 F Pulse Rate 88 89 92 Respiratory 20 Rate Blood Pressure 124/68 O2 Sat by Pulse 94 L Oximetry EKG Findings - EKG Comments: EKG Findings:: 1900. Normal sinus rhythm. Rate 92. NV 152. QRS 90. QT/QTc 380/469. Normal axis. No STEMI. Normal EKG. Medical Decision Making - Medical Decision Making 61-year-old male with history of COPD presenting for shortness of breath. Patient initially with mild respiratory distress and significant wheezes. Multiple breathing treatments were administered. Patient given IV Solu-Medrol. On reevaluation he states he is feeling significantly improved, no longer with respiratory distress. Chest x-ray was performed without evidence of acute pneumonia. Lab work appears stable. Was offered admission for further treatment, however he would prefer to go home at this time with outpatient management. He does of oxygen at home which he can use, as well as pulse ox which he can follow his SpO2 with. Rx for azithromycin provided in the event his cough becomes productive. Rx for prednisone provided. Patient states he has nebulizer solution and inhalers at home. Discussed close follow-up with PCP. Discussed concerning signs symptoms for immediate return to the ED. Patient and are agreeable with plan and discharge home. - Lab Data Result diagrams: 07/01/16 19:00 07/01/16 19:00 Lab Results 07/01/16 07/01/16 Range/Units 19:00 19:00 WBC 8.8 (3.8-10.6) k/uL RBC 5.55 (4.30-5.90) m/uL Hgb 16.7 (13.0-17.5) gm/dL Hct 49.8 (39.0-53.0) % MCV 89.9 (80.0-100.0) fL MCH 30.2 (25.0-35.0) pg MCHC 33.6 (31.0-37.0) g/dL RDW 14.5 (11.5-15.5) % Plt Count 201 (150-450) k/uL Neutrophils % 61 % Lymphocytes % 23 % Monocytes % 7 % Eosinophils % 6 % Basophils % 0 % Neutrophils # 5.4 (1.3-7.7) k/uL Lymphocytes # 2.0 (1.0-4.8) k/uL Monocytes # 0.6 (0-1.0) k/uL Eosinophils # 0.5 (0-0.7) k/uL Basophils # 0.0 (0-0.2) k/uL Sodium 141 (137-145) mmol/L Potassium 3.4 L (3.5-5.1) mmol/L Chloride 102 (98-107) mmol/L Carbon Dioxide 29 (22-30) mmol/L Anion Gap 10 mmol/L BUN 12 (9-20) mg/dL Creatinine 0.87 (0.66-1.25) mg/dL Est GFR (MDRD) Af Amer >60 (>60 ml/min/1.73 sqM) Est GFR (MDRD) Non-Af >60 (>60 ml/min/1.73 sqM) Glucose 115 H (74-99) mg/dL Calcium 8.6 (8.4-10.2) mg/dL - EKG Data -: EKG Interpreted by Ri EKG shows normal: sinus rhythm Rate: normal Disposition Clinical Impression: COPD exacerbation, Cough, Tobacco abuse Disposition: HOME SELF-CARE Condition: Stable Instructions: COPD (Chronic Obstructive Pulmonary Disease) (ED), Acute Cough ( ED) Prescriptions: Azithromycin [Zithromax] 250 mg PO DAILY #6 tab predniSONE 40 mg PO DAILY #14 tab Referrals: Malik Bui MD [Primary Care Provider] - 1-2 days Time of Disposition: 21:21
[2016-07-01 19:10] LABS: Basophils % (A) 0 %; CH 30.5; CHCM 34.1; Eosinophils # (A) 0.5 k/uL (0-0.7); Eosinophils % (A) 6 %; HCT 49.8 % (39.0-53.0); HDW 2.88; HGB 16.7 gm/dL (13.0-17.5); Luc # (Auto) 0.22; Luc % (Auto) 3; Lymphocytes % (A) 23 %; MCH 30.2 pg (25.0-35.0); MCHC 33.6 g/dL (31.0-37.0); MCV 89.9 fL (80.0-100.0); Mean Platelet Volume 7.6; Monocytes # (A) 0.6 k/uL (0-1.0); Monocytes % (A) 7 %; Neutrophils # (A) 5.4 k/uL (1.3-7.7); Neutrophils % (A) 61 %; RBC 5.55 m/uL (4.30-5.90); RDW 14.5 % (11.5-15.5); WBC 8.8 k/uL (3.8-10.6); WBC (Perox) 8.93
[2016-07-01 19:18] LABS: Anion Gap 10 mmol/L; Blood Urea Nitrogen 12 mg/dL (9-20); Calcium 8.6 mg/dL (8.4-10.2); Carbon Dioxide 29 mmol/L (22-30); Chloride 102 mmol/L (98-107); Glucose 115 mg/dL (74-99); Non-African American GFR(MDRD) >60 (>60 ml/min/1.73 sqM); Potassium 3.4 mmol/L (3.5-5.1); Sodium 141 mmol/L (137-145)
[2016-07-01] MEDS ORDERED: methylPREDNISolone SOD SUCCI 125 MG/2 ML VIAL IV STA (19:56)
--- NOTE | 2016-07-01 20:20 | XR ---
EXAMINATION TYPE: XR chest 2V DATE OF EXAM: 07/01/2016 8:05 PM COMPARISON: 05/19/2016 HISTORY: Short of breath TECHNIQUE: Frontal and lateral views of the chest are obtained. FINDINGS: There is no heart failure nor confluent pneumonic infiltrate. Heart size is normal. There are no hilar masses. There are chest leads. Costophrenic angles are clear. IMPRESSION: No active cardiopulmonary disease. No change.
[2016-07-01 21:41] VITALS: BP 124/68; PULSE 92; RESP 20; TEMP 98.2
== END 2016-07-01 21:41 | disposition home or self-care (01) ==
LOC: EC 18:32
DX: J44.1 Chronic obstructive pulmonary disease with (acute) exacerbation (principal); R07.9 Chest pain, unspecified; M54.9 Dorsalgia, unspecified; E66.9 Obesity, unspecified; K21.9 Gastro-esophageal reflux disease without esophagitis; M19.90 Unspecified osteoarthritis, unspecified site; H91.90 Unspecified hearing loss, unspecified ear; F41.9 Anxiety disorder, unspecified; F17.200 Nicotine dependence, unspecified, uncomplicated; Z79.01 Long term (current) use of anticoagulants; Z79.51 Long term (current) use of inhaled steroids; Z79.899 Other long term (current) drug therapy
CPT/HCPCS: 99285; 96374; 36415; 94640 ×2; 93005; 80048; 85025; 71020; J2930

== ENCOUNTER 2016-10-20 08:11 | Emergency (ER) | payer MEDICARE, BC ==
[2016-10-20] MEDS ORDERED: MAGNESIUM SULFATE-D5W PMX 1 GM in DEXTROSE/WATER 1 100ML.BAG IVPB STA (08:18)
[2016-10-20] MEDS ORDERED: IPRATROPIUM-ALBUTEROL 3 ML NEB INHALATION STA (08:18)
[2016-10-20] MEDS ORDERED: SODIUM CHLORIDE 0.9% 1,000 ML IV STA (08:18)
[2016-10-20] MEDS ORDERED: HYDROcodone/APAP 5-325MG 1 EACH TAB PO STA (08:19)
[2016-10-20 08:21] VITALS: TEMP 97.9
--- NOTE | 2016-10-20 08:23 | ED ---
General Adult HPI - General Chief complaint: Shortness of Breath Stated complaint: yuliya Time Seen by Provider: 10/20/16 08:16 Source: patient, EMS, RN notes reviewed Mode of arrival: EMS Limitations: no limitations - History of Present Illness Initial comments: Patient is a pleasant 61-year-old male presenting to the emergency department complaining of difficulty in breathing. Onset of symptoms was this morning. Symptoms are moderate to severe. Patient has had similar symptoms previously associated with COPD. No chest pain. No fever. Patient does have mild nonproductive cough. No leg pain or leg swelling. EMS did provide one nebulizer treatment and Solu-Medrol IV. Patient answers questions in one to 2 word sentences. Patient request [place] for his chronic back pain. He did not take it this morning. - Related Data Home Medications Medication Instructions Recorded Confirmed Citalopram Hydrobromide [CeleXA] 20 mg PO HS 12/15/14 07/01/16 Metoprolol Tartrate 25 mg PO HS 12/15/14 10/20/16 Tiotropium 18 Mcg/Puff [Spiriva] 1 cap INHALATION RT-DAILY 09/21/15 07/01/16 Warfarin [Coumadin] 5 mg PO HS 09/21/15 10/20/16 HYDROcodone/APAP 10-325MG [[place] 1 tab PO Q6H PRN 01/18/16 10/20/16 10-325] Colchicin-Probenecid 0.5-500Mg 1 tab PO DAILY 02/15/16 07/01/16 [Colbenemid] Diazepam [Valium] 5 mg PO DAILY PRN 02/15/16 10/20/16 Fluticasone/Salmeterol [Advair 1 inhalation PO RT-BID 10/20/16 10/20/16 250-50 Diskus] Naproxen [Naprosyn] 500 mg PO Q12HR PRN 10/20/16 10/20/16 Omeprazole [PriLOSEC] 20 mg PO AC-BID 10/20/16 10/20/16 Previous Rx's Medication Instructions Recorded Albuterol Nebulized [Ventolin 2.5 mg INHALATION RT-QID PRN #120 05/21/16 Nebulized] nebu Montelukast [Singulair] 10 mg PO HS #30 tab 05/21/16 Levofloxacin [Levaquin] 500 mg PO DAILY #10 tab 10/20/16 predniSONE 20 mg PO BID #10 tab 10/20/16 Allergies Allergy/AdvReac Type Severity Reaction Status Date / Time No Known Allergies Allergy Verified 10/20/16 09:34 Review of Systems ROS Statement: Those systems with pertinent positive or pertinent negative responses have been documented in the HPI. ROS Other: All systems not noted in ROS Statement are negative. Constitutional: Denies: fever, chills Eyes: Denies: eye pain ENT: Denies: ear pain Respiratory: Reports: dyspnea Cardiovascular: Denies: chest pain Endocrine: Denies: fatigue Gastrointestinal: Denies: abdominal pain Genitourinary: Denies: dysuria Musculoskeletal: Denies: back pain Skin: Denies: rash Neurological: Denies: weakness Past Medical History Past Medical History: COPD, Deep Vein Thrombosis (DVT), GERD/Reflux, Hearing Disorder / Deafness, Osteoarthritis (OA), Vascular Disorder, Vascular Disorder Additional Past Medical History / Comment(s): CHRONIC BRONCHITIS. DVT of the right lower extremity in 2007 , peripheral vascular disease, wound bottom rt foot, cast on rt footdependent. wound rt foot History of Any Multi-Drug Resistant Organisms: MRSA Date of last positivie culture/infection: 2007 MDRO Source:: NECK Past Surgical History: Hernia Repair, Orthopedic Surgery Additional Past Surgical History / Comment(s): Bilateral femoral bypass surgery , arthroscopic left knee surgery, bilateral inguinal hernia repair, partial left great toe excision/amputation . Past Anesthesia/Blood Transfusion Reactions: No Reported Reaction Past Psychological History: Anxiety Smoking Status: Current every day smoker Past Alcohol Use History: Occasional Past Drug Use History: Marijuana - Past Family History Brother(s) Family Medical History: Coronary Artery Disease (CAD) Additional Family Medical History / Comment(s): heart attack/cabg Mother Family Medical History: Deep Vein Thrombosis (DVT) General Exam Limitations: no limitations General appearance: alert Head exam: Present: atraumatic Eye exam: Present: normal appearance, PERRL ENT exam: Present: normal oropharynx Neck exam: Present: normal inspection Respiratory exam: Present: respiratory distress, wheezes, decreased breath sounds Cardiovascular Exam: Present: tachycardia GI/Abdominal exam: Present: soft. Absent: tenderness Extremities exam: Present: normal inspection. Absent: pedal edema, calf tenderness Neurological exam: Present: alert Psychiatric exam: Present: normal affect, normal mood Skin exam: Present: normal color Course Vital Signs 10/20/16 10/20/16 10/20/16 08:18 08:29 08:37 Temperature 97.9 F Pulse Rate 104 H 94 97 Respiratory 40 H Rate Blood Pressure 131/76 O2 Sat by Pulse 89 L Oximetry 10/20/16 10/20/16 10/20/16 09:09 09:28 09:53 Temperature 97.9 F Pulse Rate 90 92 82 Respiratory 26 H 32 H Rate Blood Pressure 105/67 138/63 O2 Sat by Pulse 93 L 93 L 92 L Oximetry Medical Decision Making - Medical Decision Making Patient reexamined and significantly improved. Lung sounds with mild wheezing however did air exchange. Patient updated on results. Patient recommended admission. Patient has his grandson's birthday constitution party today and refuses tetanus this. Patient states he feels much better and is comfortable with discharge. Patient will leave AGAINST MEDICAL ADVICE. - Lab Data Result diagrams: 10/20/16 08:24 10/20/16 08:24 Lab Results 10/20/16 10/20/16 Range/Units 08:24 08:24 WBC 8.3 (3.8-10.6) k/uL RBC 6.05 H (4.30-5.90) m/uL Hgb 17.3 (13.0-17.5) gm/dL Hct 54.7 H (39.0-53.0) % MCV 90.3 (80.0-100.0) fL MCH 28.6 (25.0-35.0) pg MCHC 31.7 (31.0-37.0) g/dL RDW 15.4 (11.5-15.5) % Plt Count 225 (150-450) k/uL Neutrophils % 51 % Lymphocytes % 31 % Monocytes % 8 % Eosinophils % 6 % Basophils % 1 % Neutrophils # 4.3 (1.3-7.7) k/uL Lymphocytes # 2.6 (1.0-4.8) k/uL Monocytes # 0.7 (0-1.0) k/uL Eosinophils # 0.5 (0-0.7) k/uL Basophils # 0.1 (0-0.2) k/uL Sodium 140 (137-145) mmol/L Potassium 3.7 (3.5-5.1) mmol/L Chloride 99 (98-107) mmol/L Carbon Dioxide 30 (22-30) mmol/L Anion Gap 11 mmol/L BUN 8 L (9-20) mg/dL Creatinine 1.00 (0.66-1.25) mg/dL Est GFR (MDRD) Af Amer >60 (>60 ml/min/1.73 sqM) Est GFR (MDRD) Non-Af >60 (>60 ml/min/1.73 sqM) Glucose 156 H (74-99) mg/dL Calcium 8.8 (8.4-10.2) mg/dL Total Bilirubin 0.8 (0.2-1.3) mg/dL AST 26 (17-59) U/L ALT 32 (21-72) U/L Alkaline Phosphatase 98 (38-126) U/L Total Protein 6.8 (6.3-8.2) g/dL Albumin 3.7 (3.5-5.0) g/dL - Radiology Data Radiology results: image reviewed (Chest x-ray shows limited right basilar infiltrate.) Disposition Clinical Impression: COPD exacerbation, Pneumonia Disposition: Left Against Medical Advice Instructions: Community Acquired Pneumonia (ED), COPD (Chronic Obstructive Pulmonary Disease) (ED) Additional Instructions: Please follow-up with your doctor tomorrow. Return for fevers, worsening breathing, weakness, worsening symptoms or other concerns. You're leaving against director of medical review. Prescriptions: Levofloxacin [Levaquin] 500 mg PO DAILY #10 tab predniSONE 20 mg PO BID #10 tab Referrals: Malik Bui MD [Primary Care Provider] - 1-2 days Time of Disposition: 09:59
[2016-10-20 08:29] LABS: Basophils # (A) 0.1 k/uL (0-0.2); Basophils % (A) 1 %; CH 29.7; CHCM 33.1; Eosinophils # (A) 0.5 k/uL (0-0.7); Eosinophils % (A) 6 %; HCT 54.7 % (39.0-53.0); HDW 2.73; HGB 17.3 gm/dL (13.0-17.5); Luc # (Auto) 0.22; Luc % (Auto) 3; Lymphocytes # (A) 2.6 k/uL (1.0-4.8); Lymphocytes % (A) 31 %; MCH 28.6 pg (25.0-35.0); MCHC 31.7 g/dL (31.0-37.0); MCV 90.3 fL (80.0-100.0); Mean Platelet Volume 8.7; Monocytes # (A) 0.7 k/uL (0-1.0); Monocytes % (A) 8 %; Neutrophils # (A) 4.3 k/uL (1.3-7.7); Neutrophils % (A) 51 %; RBC 6.05 m/uL (4.30-5.90); RDW 15.4 % (11.5-15.5); WBC 8.3 k/uL (3.8-10.6); WBC (Perox) 8.27
[2016-10-20 08:52] LABS: ALT 32 U/L (21-72); AST 26 U/L (17-59); Alkaline Phosphatase 98 U/L (38-126); Anion Gap 11 mmol/L; Blood Urea Nitrogen 8 mg/dL (9-20); Calcium 8.8 mg/dL (8.4-10.2); Carbon Dioxide 30 mmol/L (22-30); Chloride 99 mmol/L (98-107); Glucose 156 mg/dL (74-99); Non-African American GFR(MDRD) >60 (>60 ml/min/1.73 sqM); Potassium 3.7 mmol/L (3.5-5.1); Sodium 140 mmol/L (137-145); Total Bilirubin 0.8 mg/dL (0.2-1.3); Total Protein 6.8 g/dL (6.3-8.2)
--- NOTE | 2016-10-20 09:05 | XR ---
EXAMINATION TYPE: XR chest 2V DATE OF EXAM: 10/20/2016 HISTORY: difficulty breathing. REFERENCE: Previous study dated 07/01/2016. FINDINGS: Lung volumes are prominent. There is a limited infiltrate in the right lower lobe. Lungs ot herwise clear. Pleural spaces are clear. The heart is not enlarged. IMPRESSION: 1. COPD. 2. LIMITED INFILTRATE, RIGHT LUNG BASE.
[2016-10-20 09:54] VITALS: BP 138/63; PULSE 82; RESP 32
== END 2016-10-20 10:12 | disposition left against medical advice (07) ==
LOC: EC 08:11
DX: J44.1 Chronic obstructive pulmonary disease with (acute) exacerbation (principal); J18.9 Pneumonia, unspecified organism; K21.9 Gastro-esophageal reflux disease without esophagitis; M19.90 Unspecified osteoarthritis, unspecified site; H91.90 Unspecified hearing loss, unspecified ear; F41.9 Anxiety disorder, unspecified; F17.200 Nicotine dependence, unspecified, uncomplicated; Z86.718 Personal history of other venous thrombosis and embolism; Z79.01 Long term (current) use of anticoagulants; Z79.51 Long term (current) use of inhaled steroids; Z79.899 Other long term (current) drug therapy; Z79.1 Long term (current) use of non-steroidal anti-inflammatories (NSAID)
CPT/HCPCS: 36415; 94640; 80053; 85025; 71020; 99285; 96365; 96361 ×2; J3475

== ENCOUNTER 2016-12-02 18:18 | Inpatient (IN) | payer MEDICARE, BC ==
[2016-12-02] MEDS ORDERED: SODIUM CHLORIDE 0.9% 1,000 ML IV STA (18:56)
[2016-12-02] MEDS ORDERED: IPRATROPIUM-ALBUTEROL 3 ML NEB INHALATION STA (18:56)
[2016-12-02] MEDS ORDERED: methylPREDNISolone SOD SUCCI 125 MG/2 ML VIAL IV STA (18:56)
[2016-12-02] MEDS ORDERED: MAGNESIUM SULFATE-D5W PMX 1 GM in DEXTROSE/WATER 1 100ML.BAG IVPB ONE (19:03)
--- NOTE | 2016-12-02 19:03 | ED ---
SOB HPI - General Chief Complaint: Shortness of Breath Stated Complaint: weakness/Coughing Time Seen by Provider: 12/02/16 18:46 Source: patient, family, RN notes reviewed Mode of arrival: wheelchair Limitations: no limitations - History of Present Illness Initial Comments: This is a 60-year-old male with a history of COPD who still smokes who has come in for evaluation for cough and shortness of breath which started 4 days ago. He denies any chest pain no overt fevers chills or sweats he has had a cough of white phlegm. He denies any overt chest pain. He is having exertional dyspnea. MD Complaint: shortness of breath, cough - Related Data Home Medications Medication Instructions Recorded Confirmed Metoprolol Tartrate 25 mg PO HS 12/15/14 12/02/16 Warfarin [Coumadin] 5 mg PO HS 09/21/15 12/02/16 HYDROcodone/APAP 10-325MG [[place] 1 tab PO Q6H PRN 01/18/16 12/02/16 10-325] Diazepam [Valium] 5 mg PO BID PRN 02/15/16 12/02/16 Fluticasone/Salmeterol [Advair 1 puff INHALATION RT-BID 10/20/16 12/02/16 250-50 Diskus] Omeprazole [PriLOSEC] 20 mg PO AC-BID 10/20/16 12/02/16 Colchicine [Colcrys] 0.6 mg PO DAILY 12/02/16 12/02/16 Magnesium Gluconate [Magonate] 500 mg PO DAILY 12/02/16 12/02/16 Zinc 50 mg PO DAILY 12/02/16 12/02/16 Previous Rx's Medication Instructions Recorded Albuterol Nebulized [Ventolin 2.5 mg INHALATION RT-QID PRN #120 05/21/16 Nebulized] nebu Montelukast [Singulair] 10 mg PO HS #30 tab 05/21/16 Allergies Allergy/AdvReac Type Severity Reaction Status Date / Time No Known Allergies Allergy Verified 12/02/16 19:04 Review of Systems ROS Statement: Those systems with pertinent positive or pertinent negative responses have been documented in the HPI. ROS Other: All systems not noted in ROS Statement are negative. Past Medical History Past Medical History: COPD, Deep Vein Thrombosis (DVT), GERD/Reflux, Hearing Disorder / Deafness, Osteoarthritis (OA), Vascular Disorder, Vascular Disorder Additional Past Medical History / Comment(s): CHRONIC BRONCHITIS. DVT of the right lower extremity in 2008 , peripheral vascular disease, wound bottom rt foot, cast on rt footdependent. wound rt foot History of Any Multi-Drug Resistant Organisms: MRSA Date of last positivie culture/infection: 2007 MDRO Source:: NECK Past Surgical History: Hernia Repair, Orthopedic Surgery Additional Past Surgical History / Comment(s): Bilateral femoral bypass surgery , arthroscopic left knee surgery, bilateral inguinal hernia repair, partial left great toe excision/amputation . Past Anesthesia/Blood Transfusion Reactions: No Reported Reaction Past Psychological History: Anxiety Smoking Status: Current every day smoker Past Alcohol Use History: Occasional Past Drug Use History: Marijuana - Past Family History Brother(s) Family Medical History: Coronary Artery Disease (CAD) Additional Family Medical History / Comment(s): heart attack/cabg Mother Family Medical History: Deep Vein Thrombosis (DVT) General Exam - General Exam Comments Initial Comments: This is a well-developed well-nourished awake alert oriented 3 male Limitations: no limitations General appearance: alert Head exam: Present: atraumatic, normocephalic, normal inspection Eye exam: Present: normal appearance, PERRL, EOMI. Absent: scleral icterus, conjunctival injection, periorbital swelling ENT exam: Present: mucous membranes dry Neck exam: Present: normal inspection. Absent: tenderness, meningismus, lymphadenopathy Respiratory exam: Present: wheezes, accessory muscle use, decreased breath sounds. Absent: respiratory distress, rales, rhonchi, stridor Cardiovascular Exam: Present: regular rate, normal rhythm, normal heart sounds. Absent: systolic murmur, diastolic murmur, rubs, gallop, clicks GI/Abdominal exam: Present: soft, normal bowel sounds. Absent: distended, tenderness, guarding, rebound, rigid Extremities exam: Present: normal inspection, full ROM, normal capillary refill. Absent: tenderness, pedal edema, joint swelling, calf tenderness Back exam: Present: normal inspection Neurological exam: Present: alert, oriented X3, CN II-XII intact Psychiatric exam: Present: normal affect, normal mood Skin exam: Present: warm, dry, intact, normal color. Absent: rash Course Vital Signs 12/02/16 12/02/16 12/02/16 18:37 19:31 19:40 Temperature 98.2 F Pulse Rate 68 85 90 Respiratory 20 20 Rate Blood Pressure 115/68 111/66 O2 Sat by Pulse 86 L 94 L Oximetry 12/02/16 12/02/16 12/02/16 19:52 20:37 20:54 Temperature Pulse Rate 84 83 Respiratory 18 20 Rate Blood Pressure 140/89 O2 Sat by Pulse 96 Oximetry 12/02/16 21:38 Temperature Pulse Rate 86 Respiratory 18 Rate Blood Pressure 127/76 O2 Sat by Pulse 94 L Oximetry - Reevaluation(s) Reevaluation #1: 12/02/16 21:42 Reevaluation patient reveals continuation of diminished breath sounds with diffuse wheezing. He does state he is feeling slightly better but not much. Medical Decision Making - Medical Decision Making Reevaluation patient reveals diminished breath sounds with diffuse wheezing. I did discuss findings with patient and with Dr. Bui the patient be admitted for continued inpatient treatment - Lab Data Result diagrams: 12/02/16 19:05 12/02/16 19:05 Lab Results 12/02/16 12/02/16 12/02/16 Range/Units 19:05 19:05 19:05 WBC 7.8 (3.8-10.6) k/uL RBC 5.59 (4.30-5.90) m/uL Hgb 16.3 (13.0-17.5) gm/dL Hct 48.5 (39.0-53.0) % MCV 86.8 (80.0-100.0) fL MCH 29.2 (25.0-35.0) pg MCHC 33.6 (31.0-37.0) g/dL RDW 15.4 (11.5-15.5) % Plt Count 174 (150-450) k/uL Neutrophils % 61 % Lymphocytes % 19 % Monocytes % 8 % Eosinophils % 7 % Basophils % 1 % Neutrophils # 4.8 (1.3-7.7) k/uL Lymphocytes # 1.5 (1.0-4.8) k/uL Monocytes # 0.7 (0-1.0) k/uL Eosinophils # 0.6 (0-0.7) k/uL Basophils # 0.0 (0-0.2) k/uL PT (9.0-12.0) sec INR (<1.2) APTT (22.0-30.0) sec Sodium 138 (137-145) mmol/L Potassium 3.6 (3.5-5.1) mmol/L Chloride 99 (98-107) mmol/L Carbon Dioxide 30 (22-30) mmol/L Anion Gap 9 mmol/L BUN 12 (9-20) mg/dL Creatinine 0.99 (0.66-1.25) mg/dL Est GFR (MDRD) Af Amer >60 (>60 ml/min/1.73 sqM) Est GFR (MDRD) Non-Af >60 (>60 ml/min/1.73 sqM) Glucose 139 H (74-99) mg/dL Calcium 8.7 (8.4-10.2) mg/dL Magnesium 1.1 L (1.6-2.3) mg/dL Total Bilirubin 0.4 (0.2-1.3) mg/dL AST 26 (17-59) U/L ALT 32 (21-72) U/L Alkaline Phosphatase 80 (38-126) U/L Total Creatine Kinase 87 (55-170) U/L CK-MB (CK-2) 1.5 (0.0-2.4) ng/mL CK-MB (CK-2) Rel Index 1.7 Troponin I <0.012 (0.000-0.034) ng/mL NT-Pro-B Natriuret Pep pg/mL Total Protein 6.6 (6.3-8.2) g/dL Albumin 3.7 (3.5-5.0) g/dL 12/02/16 12/02/16 Range/Units 19:05 19:05 WBC (3.8-10.6) k/uL RBC (4.30-5.90) m/uL Hgb (13.0-17.5) gm/dL Hct (39.0-53.0) % MCV (80.0-100.0) fL MCH (25.0-35.0) pg MCHC (31.0-37.0) g/dL RDW (11.5-15.5) % Plt Count (150-450) k/uL Neutrophils % % Lymphocytes % % Monocytes % % Eosinophils % % Basophils % % Neutrophils # (1.3-7.7) k/uL Lymphocytes # (1.0-4.8) k/uL Monocytes # (0-1.0) k/uL Eosinophils # (0-0.7) k/uL Basophils # (0-0.2) k/uL PT 49.8 H (9.0-12.0) sec INR 5.0 H* (<1.2) APTT 42.3 H (22.0-30.0) sec Sodium (137-145) mmol/L Potassium (3.5-5.1) mmol/L Chloride (98-107) mmol/L Carbon Dioxide (22-30) mmol/L Anion Gap mmol/L BUN (9-20) mg/dL Creatinine (0.66-1.25) mg/dL Est GFR (MDRD) Af Amer (>60 ml/min/1.73 sqM) Est GFR (MDRD) Non-Af (>60 ml/min/1.73 sqM) Glucose (74-99) mg/dL Calcium (8.4-10.2) mg/dL Magnesium (1.6-2.3) mg/dL Total Bilirubin (0.2-1.3) mg/dL AST (17-59) U/L ALT (21-72) U/L Alkaline Phosphatase (38-126) U/L Total Creatine Kinase (55-170) U/L CK-MB (CK-2) (0.0-2.4) ng/mL CK-MB (CK-2) Rel Index Troponin I (0.000-0.034) ng/mL NT-Pro-B Natriuret Pep 128 pg/mL Total Protein (6.3-8.2) g/dL Albumin (3.5-5.0) g/dL - EKG Data -: EKG Interpreted by [facility] EKG shows normal: sinus rhythm (Sinus rhythm rate is 85, MO interval 160 QRS duration 96 QT since QTC of 396/471 this is a normal-appearing EKG.) - Radiology Data Radiology results: report reviewed (Review the imaging reveals a right lower lobe infiltrate does appear similar to a previous x-ray.), image reviewed Critical Care Time Critical Care Time: Yes Critical Care Time: 32 minutes of critical care time which includes initial presentation with history physical labs x-rays reevaluation the patient on several occasions. Review of labs and x-rays discussion with the patient discussed with Dr. Bui review of old charting admission orders and documentation of the above Disposition Clinical Impression: Right lower lobe pneumonia, Hypoxemia, Acute exacerbation of chronic obstructive airways disease, Adult respiratory distress syndrome, Hypomagnesemia Disposition: ADMITTED IP TO THIS HOSP Condition: Stable Referrals: Malik Bui MD [Primary Care Provider] - 1-2 days
[2016-12-02 19:21] LABS: Basophils % (A) 1 %; CH 28.9; CHCM 33.4; Eosinophils # (A) 0.6 k/uL (0-0.7); Eosinophils % (A) 7 %; HCT 48.5 % (39.0-53.0); HDW 2.65; HGB 16.3 gm/dL (13.0-17.5); Luc % (Auto) 4; Lymphocytes # (A) 1.5 k/uL (1.0-4.8); Lymphocytes % (A) 19 %; MCH 29.2 pg (25.0-35.0); MCHC 33.6 g/dL (31.0-37.0); MCV 86.8 fL (80.0-100.0); Mean Platelet Volume 8.2; Monocytes # (A) 0.7 k/uL (0-1.0); Monocytes % (A) 8 %; Neutrophils # (A) 4.8 k/uL (1.3-7.7); Neutrophils % (A) 61 %; RBC 5.59 m/uL (4.30-5.90); RDW 15.4 % (11.5-15.5); WBC 7.8 k/uL (3.8-10.6); WBC (Perox) 8.25
[2016-12-02 19:38] LABS: Partial Thromboplastin Time 42.3 sec (22.0-30.0); Prothrombin Time 49.8 sec (9.0-12.0)
[2016-12-02 19:40] LABS: ALT 32 U/L (21-72); AST 26 U/L (17-59); Alkaline Phosphatase 80 U/L (38-126); Anion Gap 9 mmol/L; Blood Urea Nitrogen 12 mg/dL (9-20); Calcium 8.7 mg/dL (8.4-10.2); Carbon Dioxide 30 mmol/L (22-30); Chloride 99 mmol/L (98-107); Glucose 139 mg/dL (74-99); Magnesium 1.1 mg/dL (1.6-2.3); Non-African American GFR(MDRD) >60 (>60 ml/min/1.73 sqM); Potassium 3.6 mmol/L (3.5-5.1); Sodium 138 mmol/L (137-145); Total Bilirubin 0.4 mg/dL (0.2-1.3); Total Protein 6.6 g/dL (6.3-8.2)
[2016-12-02 19:42] LABS: Creatine Kinase 87 U/L (55-170)
--- NOTE | 2016-12-02 19:43 | XR ---
EXAMINATION TYPE: XR chest 2V DATE OF EXAM: 12/02/2016 COMPARISON: 10/20/2016 HISTORY: Difficulty breathing TECHNIQUE: Frontal and lateral views of the chest are obtained. FINDINGS: Right lower lobe airspace disease is again noted, similar from the prior exam. Left basal atelectasis is also again appreciated. Remainder the lungs are clear. No pleural effusion or pneumoth orax. Cardiomediastinal silhouette is nonenlarged. Mild degenerative changes of the thoracic spine an d acromioclavicular joints are seen. IMPRESSION: Persistent right middle lobe airspace disease. Continued follow-up is recommended to ens ure resolution after treatment.
[2016-12-02] MEDS ORDERED: HYDROmorphone 1 MG/ML 1 ML SYRINGE IVP STA (19:50)
[2016-12-02 19:55] LABS: Creatine Kinase MB 1.5 ng/mL (0.0-2.4); Troponin I <0.012 ng/mL (0.000-0.034)
[2016-12-02] MEDS ORDERED: MORPHINE SULFATE 4 MG/ML SYRINGE IVP STA (20:04)
[2016-12-02] MEDS ORDERED: AZITHROMYCIN 500 MG in SODIUM CHLORIDE 0.9% 250 ML IVPB STA (21:50)
[2016-12-02] MEDS ORDERED: NALOXONE 0.4 MG/ML 1 ML VIAL IV PRN (21:52)
[2016-12-02] MEDS: SODIUM CHLORIDE 0.9% 1,000 ML IV SCH (22:14)
[2016-12-02 23:03] VITALS: BMI 32.0
[2016-12-03] MEDS: methylPREDNISolone SOD SUCCI 125 MG/2 ML VIAL IV SCH ×5 (00:20→23:49)
[2016-12-03] MEDS: IPRATROPIUM-ALBUTEROL 3 ML NEB INHALATION SCH ×7 (04:13→23:40)
[2016-12-03 07:57] LABS: Glucose,Whole Blood 168 mg/dL (75-99)
[2016-12-03 08:17] VITALS: RESP 20
--- NOTE | 2016-12-03 08:58 | P.HPIM ---
History of Present Illness H&P Date: 12/03/16 Chief Complaint: Dyspnea This is a another admission on a 61-year-old white male who has another exacerbation of COPD. Patient has struggled with this and states he is finally stopped or decided to stop smoking. He states that we had to medication issues over the weekend and felt that if I would've gotten to his messages sooner, the possibility of hospitalization could've been avoided. No significant diarrhea or constipation or overt anginal type chest pain. X-rays otherwise noted. Review of Systems Constitutional: Denies chills, Denies fever Eyes: denies blurred vision, denies pain Ears, nose, mouth and throat: Denies headache, Denies sore throat Cardiovascular: Denies chest pain, Denies shortness of breath Respiratory: Reports congestion, Reports cough, Reports cough with sputum, Reports pleurisy Gastrointestinal: Denies abdominal pain, Denies diarrhea, Denies nausea, Denies vomiting Musculoskeletal: Denies myalgias Past Medical History Past Medical History: COPD, Deep Vein Thrombosis (DVT), GERD/Reflux, Hearing Disorder / Deafness, Osteoarthritis (OA), Vascular Disorder Additional Past Medical History / Comment(s): CHRONIC BRONCHITIS. DVT of the right lower extremity in 2007 , peripheral vascular disease, wound bottom rt foot, cast on rt footdependent. wound rt foot History of Any Multi-Drug Resistant Organisms: MRSA Date of last positivie culture/infection: 2007 MDRO Source:: NECK Past Surgical History: Hernia Repair, Orthopedic Surgery Additional Past Surgical History / Comment(s): Bilateral femoral bypass surgery , arthroscopic left knee surgery, bilateral inguinal hernia repair, partial left great toe excision/amputation . Past Anesthesia/Blood Transfusion Reactions: No Reported Reaction Past Psychological History: Anxiety Smoking Status: Current every day smoker Past Alcohol Use History: Occasional Additional Past Alcohol Use History / Comment(s): smoker since age 18 , 1 PPD Past Drug Use History: Marijuana Additional Drug Use History / Comment(s): occ use - Past Family History Brother(s) Family Medical History: Coronary Artery Disease (CAD) Additional Family Medical History / Comment(s): heart attack/cabg Mother Family Medical History: Deep Vein Thrombosis (DVT) Medications and Allergies Home Medications Medication Instructions Recorded Confirmed Type Metoprolol Tartrate 25 mg PO HS 12/15/14 12/02/16 History Warfarin [Coumadin] 5 mg PO HS 09/21/15 12/02/16 History HYDROcodone/APAP 10-325MG [[place] 1 tab PO Q6H PRN 01/18/16 12/02/16 History 10-325] Diazepam [Valium] 5 mg PO BID PRN 02/15/16 12/02/16 History Albuterol Nebulized [Ventolin 2.5 mg INHALATION RT-QID PRN #120 05/21/16 Rx Nebulized] nebu Montelukast [Singulair] 10 mg PO HS #30 tab 05/21/16 12/02/16 Rx Fluticasone/Salmeterol [Advair 1 puff INHALATION RT-BID 10/20/16 12/02/16 History 250-50 Diskus] Omeprazole [PriLOSEC] 20 mg PO AC-BID 10/20/16 12/02/16 History Colchicine [Colcrys] 0.6 mg PO DAILY 12/02/16 12/02/16 History Magnesium Gluconate [Magonate] 500 mg PO DAILY 12/02/16 12/02/16 History Zinc 50 mg PO DAILY 12/02/16 12/02/16 History Allergies Allergy/AdvReac Type Severity Reaction Status Date / Time No Known Allergies Allergy Verified 12/02/16 19:04 Physical Exam Vitals: Vital Signs Temp Pulse Pulse Resp BP BP Pulse Ox 12/03/16 07:00 96.8 F L 78 20 116/67 96 12/03/16 04:22 88 12/03/16 04:13 88 12/02/16 23:00 97.2 F L 87 16 124/77 93 L 12/02/16 22:18 83 18 125/78 95 12/02/16 21:38 86 18 127/76 94 L 12/02/16 20:54 20 12/02/16 20:37 83 18 140/89 96 12/02/16 19:52 84 12/02/16 19:40 90 12/02/16 19:31 85 20 111/66 94 L 12/02/16 18:37 98.2 F 68 20 115/68 86 L Intake and Output 12/02/16 12/03/16 12/03/16 22:59 06:59 14:59 Other: # Voids 0 Weight 110 kg - Constitutional General appearance: average body habitus - EENT Eyes: EOMI - Neck Neck: no lymphadenopathy - Respiratory Respiratory: bilateral: diminished, wheezing - Cardiovascular Rhythm: regular Heart sounds: normal: S1, S2 - Gastrointestinal General gastrointestinal: soft, no tenderness - Integumentary Integumentary: cellulitis - Neurologic Neurologic: CNII-XII intact Results CBC & Chem 7: 12/02/16 19:05 12/02/16 19:05 Labs: Abnormal Lab Results - Last 24 Hours (Table) 12/02/16 12/02/16 12/03/16 Range/Units 19:05 19:05 07:13 PT 49.8 H (9.0-12.0) sec INR 5.0 H* (<1.2) APTT 42.3 H (22.0-30.0) sec Glucose 139 H (74-99) mg/dL POC Glucose (mg/dL) 168 H (75-99) mg/dL Magnesium 1.1 L (1.6-2.3) mg/dL Thrombosis Risk Factor Assmnt - Choose All That Apply Any of the Below Risk Factors Present?: Yes Each Factor Represents 1 point: Abnormal pulmonary function (COPD), Age 41-60 years, Obesity (BMI >25) Other Risk Factors: Yes Each Risk Factor Represents 3 Points: History of DVT/PE Thrombosis Risk Factor Assessment Total Risk Factor Score: 6 Thrombosis Risk Factor Assessment Level: High Risk Assessment and Plan (1) Acute exacerbation of chronic obstructive airways disease Status: Acute (2) Right lower lobe pneumonia Status: Acute (3) COPD exacerbation Status: Acute (4) Hypoxia Status: Acute Plan: Check CBC CMP and PT/INR in a.m. If no better, consider pulmonology referral. Patient is discussed CODE STATUS. He is a full code at this time. Again smoking cessation discussed at length with the patient.
[2016-12-03] MEDS: PANTOPRAZOLE 40 MG TABLET PO SCH ×2 (09:05→17:48)
[2016-12-03] MEDS: AZITHROMYCIN 500 MG TAB PO SCH (09:06)
[2016-12-03] MEDS: NICOTINE 21MG/24HR PATCH TRANSDERM SCH (09:07)
[2016-12-03] MEDS: MAGNESIUM OXIDE 400 MG TAB PO SCH (09:07)
[2016-12-03] MEDS: COLCHICINE 0.6 MG TAB PO SCH (09:07)
[2016-12-03] MEDS: ZINC SULFATE 220 MG CAP PO SCH (09:07)
[2016-12-03] MEDS: DIAZEPAM 5 MG TAB PO PRN ×2 (09:15→21:17)
[2016-12-03] MEDS: HYDROcodone/APAP 10-325MG 1 EACH TAB PO PRN ×3 (09:15→21:17)
[2016-12-03 09:30] LABS: INR 4.2 (<1.2)
[2016-12-03] MEDS: INSULIN LISPRO (humaLOG) 300 UNIT/3 ML VIAL SQ SCH ×3 (12:46→21:24)
[2016-12-03 12:49] LABS: Glucose,Whole Blood 177 mg/dL (75-99)
[2016-12-03 13:55] LABS: Hemoglobin A1C 6.5 % (4.2-6.1)
[2016-12-03 17:31] LABS: Glucose,Whole Blood 216 mg/dL (75-99)
[2016-12-03 20:43] LABS: Glucose,Whole Blood 261 mg/dL (75-99)
[2016-12-03] MEDS ORDERED: INSULIN LISPRO (humaLOG) 300 UNIT/3 ML VIAL SQ ONE (20:49)
[2016-12-03] MEDS ORDERED: MONTELUKAST 10 MG TAB PO SCH (21:00)
[2016-12-03] MEDS ORDERED: METOPROLOL TARTRATE 25 MG TAB PO SCH (21:00)
[2016-12-03] MEDS: SODIUM CHLORIDE 0.9% 1,000 ML IV SCH (22:19)
[2016-12-04] MEDS: IPRATROPIUM-ALBUTEROL 3 ML NEB INHALATION SCH ×2 (04:08→08:22)
[2016-12-04] MEDS: methylPREDNISolone SOD SUCCI 125 MG/2 ML VIAL IV SCH (05:52)
[2016-12-04 07:19] LABS: Glucose,Whole Blood 186 mg/dL (75-99)
[2016-12-04 07:35] VITALS: BP 111/63; TEMP 98
[2016-12-04 07:56] LABS: ALT 27 U/L (21-72); AST 16 U/L (17-59); Alkaline Phosphatase 82 U/L (38-126); Anion Gap 12 mmol/L; Blood Urea Nitrogen 15 mg/dL (9-20); Calcium 8.1 mg/dL (8.4-10.2); Carbon Dioxide 26 mmol/L (22-30); Chloride 101 mmol/L (98-107); Glucose 194 mg/dL (74-99); Non-African American GFR(MDRD) >60 (>60 ml/min/1.73 sqM); Potassium 3.6 mmol/L (3.5-5.1); Sodium 139 mmol/L (137-145); Total Bilirubin 0.3 mg/dL (0.2-1.3); Total Protein 6.2 g/dL (6.3-8.2)
[2016-12-04 08:03] LABS: CH 28.5; CHCM 32.6; HCT 43.8 % (39.0-53.0); HDW 2.61; HGB 14.6 gm/dL (13.0-17.5); MCH 29.2 pg (25.0-35.0); MCHC 33.3 g/dL (31.0-37.0); MCV 87.6 fL (80.0-100.0); Mean Platelet Volume 8.4; RDW 15.2 % (11.5-15.5); WBC 13.6 k/uL (3.8-10.6)
[2016-12-04] MEDS: COLCHICINE 0.6 MG TAB PO SCH (08:22)
[2016-12-04] MEDS: AZITHROMYCIN 500 MG TAB PO SCH (08:22)
[2016-12-04] MEDS: ZINC SULFATE 220 MG CAP PO SCH (08:22)
[2016-12-04] MEDS: MAGNESIUM OXIDE 400 MG TAB PO SCH (08:22)
[2016-12-04] MEDS: PANTOPRAZOLE 40 MG TABLET PO SCH (08:22)
[2016-12-04] MEDS: INSULIN LISPRO (humaLOG) 300 UNIT/3 ML VIAL SQ SCH (08:22)
[2016-12-04] MEDS: NICOTINE 21MG/24HR PATCH TRANSDERM SCH (08:22)
[2016-12-04] MEDS: DIAZEPAM 5 MG TAB PO PRN (08:24)
[2016-12-04] MEDS: HYDROcodone/APAP 10-325MG 1 EACH TAB PO PRN (08:24)
[2016-12-04] MEDS ORDERED: SODIUM CHLORIDE 0.65% NASAL SPRAY 44 ML BTL NASAL PRN (08:35)
[2016-12-04] MEDS ORDERED: BISACODYL 5 MG TABLET.DR PO PRN (08:35)
[2016-12-04 08:36] VITALS: PULSE 92
--- NOTE | 2016-12-04 08:51 | P.DS ---
Providers Date of admission: 12/02/16 21:46 Attending physician: Malik Bui Primary care physician: Malik Bui - Discharge Diagnosis(es) (1) Acute exacerbation of chronic obstructive airways disease Current Visit: Yes Status: Acute (2) Right lower lobe pneumonia Current Visit: Yes Status: Acute (3) COPD exacerbation Current Visit: No Status: Acute (4) Hypoxia Current Visit: No Status: Acute Hospital Course: This is a discharge summary 61-year-old white male essentially admitted for exacerbation of COPD. He is placed on appropriate treatment with [facility]. However, he did improve but because of the home situation where his is fairly alone but with M otosclerosis, he has to leave AGAINST MEDICAL ADVICE. Patient Condition at Discharge: Fair Plan - Discharge Summary New Discharge Prescriptions: New Cefuroxime Axetil [Ceftin] 500 mg PO BID #7 tab predniSONE 0 mg PO DIRECTED #18 tab No Action Metoprolol Tartrate 25 mg PO HS Warfarin [Coumadin] 5 mg PO HS HYDROcodone/APAP 10-325MG [[place] 10-325] 1 tab PO Q6H PRN PRN Reason: Pain Diazepam [Valium] 5 mg PO BID PRN PRN Reason: Anxiety Montelukast [Singulair] 10 mg PO HS #30 tab Albuterol Nebulized [Ventolin Nebulized] 2.5 mg INHALATION RT-QID PRN #120 nebu PRN Reason: Shortness Of Breath Omeprazole [PriLOSEC] 20 mg PO AC-BID Fluticasone/Salmeterol [Advair 250-50 Diskus] 1 puff INHALATION RT-BID Zinc 50 mg PO DAILY Magnesium Gluconate [Magonate] 500 mg PO DAILY Colchicine [Colcrys] 0.6 mg PO DAILY Discharge Medication List Metoprolol Tartrate 25 mg PO HS 12/15/14 [History] Warfarin [Coumadin] 5 mg PO HS 09/21/15 [History] HYDROcodone/APAP 10-325MG [[place] 10-325] 1 tab PO Q6H PRN 01/18/16 [History] Diazepam [Valium] 5 mg PO BID PRN 02/15/16 [History] Albuterol Nebulized [Ventolin Nebulized] 2.5 mg INHALATION RT-QID PRN #120 nebu 05/21/16 [Rx] Montelukast [Singulair] 10 mg PO HS #30 tab 05/21/16 [Rx] Fluticasone/Salmeterol [Advair 250-50 Diskus] 1 puff INHALATION RT-BID 10/20/16 [History] Omeprazole [PriLOSEC] 20 mg PO AC-BID 10/20/16 [History] Colchicine [Colcrys] 0.6 mg PO DAILY 12/02/16 [History] Magnesium Gluconate [Magonate] 500 mg PO DAILY 12/02/16 [History] Zinc 50 mg PO DAILY 12/02/16 [History] Cefuroxime Axetil [Ceftin] 500 mg PO BID #7 tab 12/04/16 [Rx] predniSONE 0 mg PO DIRECTED #18 tab 12/04/16 [Rx] Follow up Appointment(s)/Referral(s): Malik Bui MD [Primary Care Provider] - 1-2 days Discharge Disposition: Left Against Medical Advice
[2016-12-04 09:35] LABS: INR 2.7 (<1.2); Prothrombin Time 25.9 sec (9.0-12.0)
== END 2016-12-04 10:50 | disposition left against medical advice (07) | DRG 190 ==
LOC: EC 18:18 → 4MS4W 21:46
PROVIDERS: ADMIT Family Medicine; ATTEND Family Medicine
DX: J44.0 Chronic obstructive pulmonary disease with (acute) lower respiratory infection (principal); J18.9 Pneumonia, unspecified organism; E83.42 Hypomagnesemia; J44.1 Chronic obstructive pulmonary disease with (acute) exacerbation; F17.200 Nicotine dependence, unspecified, uncomplicated; K21.9 Gastro-esophageal reflux disease without esophagitis; H91.90 Unspecified hearing loss, unspecified ear; M19.91 Primary osteoarthritis, unspecified site; I73.9 Peripheral vascular disease, unspecified; F41.9 Anxiety disorder, unspecified; Z79.899 Other long term (current) drug therapy; Z79.01 Long term (current) use of anticoagulants; Z79.51 Long term (current) use of inhaled steroids; Z86.718 Personal history of other venous thrombosis and embolism; Z86.14 Personal history of Methicillin resistant Staphylococcus aureus infection
CPT/HCPCS: 36415; 71020; 80053; 82550; 82553; 83036; 83735; 83880; 84484; 85025; 85027; 85610; 85730; 87040; 93005; 94640; 96361; 96365; 96367; 96375; 99291

== ENCOUNTER 2017-04-24 12:35 | Inpatient (IN) | payer BC, MEDICARE ==
[2017-04-24] MEDS ORDERED: IPRATROPIUM-ALBUTEROL 3 ML NEB INHALATION STA (12:56)
[2017-04-24] MEDS ORDERED: methylPREDNISolone SOD SUCCI 125 MG/2 ML VIAL IV STA (12:56)
--- NOTE | 2017-04-24 13:18 | ED ---
SOB HPI - General Chief Complaint: Shortness of Breath Stated Complaint: Diff Breathing Time Seen by Provider: 04/24/17 12:44 Source: patient, RN notes reviewed Mode of arrival: ambulatory Limitations: no limitations - History of Present Illness Initial Comments: This a 62-year-old male presents emergency Department chief complaint of worsening shortness of breath. Patient states he has COPD patient states that he saw his primary care physician recently which was placed on antibiotics and complete the course. Patient states did not help he was not placed on any steroids. He states his been using his inhalers and using his nebulizer states he gets a short amount of relief. Patient states he started using oxygen at home because he was so short of breath. Patient denies any chest pain at this time denies fever or chills. Patient states he has been admitted for COPD and past. He's also had a prior DVT in which she takes Coumadin for. - Related Data Home Medications Medication Instructions Recorded Confirmed Metoprolol Tartrate 25 mg PO HS 12/15/14 04/24/17 Warfarin [Coumadin] 5 mg PO HS 09/21/15 04/24/17 HYDROcodone/APAP 10-325MG [[place] 1 tab PO Q6H PRN 01/18/16 04/24/17 10-325] Diazepam [Valium] 5 mg PO BID PRN 02/15/16 04/24/17 Fluticasone/Salmeterol [Advair 1 puff INHALATION RT-BID 10/20/16 04/24/17 250-50 Diskus] Colchicine [Colcrys] 0.6 mg PO DAILY 12/02/16 04/24/17 Magnesium Gluconate [Magonate] 500 mg PO DAILY 12/02/16 04/24/17 Zinc 50 mg PO DAILY 12/02/16 04/24/17 Previous Rx's Medication Instructions Recorded Albuterol Nebulized [Ventolin 2.5 mg INHALATION RT-QID PRN #120 05/21/16 Nebulized] nebu Allergies Allergy/AdvReac Type Severity Reaction Status Date / Time No Known Allergies Allergy Verified 04/24/17 13:02 Review of Systems ROS Statement: Those systems with pertinent positive or pertinent negative responses have been documented in the HPI. ROS Other: All systems not noted in ROS Statement are negative. Past Medical History Past Medical History: COPD, Deep Vein Thrombosis (DVT), GERD/Reflux, Hearing Disorder / Deafness, Osteoarthritis (OA), Vascular Disorder Additional Past Medical History / Comment(s): CHRONIC BRONCHITIS. DVT of the right lower extremity in 2007 , peripheral vascular disease, wound bottom rt foot, cast on rt footdependent. wound rt foot History of Any Multi-Drug Resistant Organisms: MRSA Date of last positivie culture/infection: 2007 MDRO Source:: NECK Past Surgical History: Hernia Repair, Orthopedic Surgery Additional Past Surgical History / Comment(s): Bilateral femoral bypass surgery , arthroscopic left knee surgery, bilateral inguinal hernia repair, partial left great toe excision/amputation . Past Anesthesia/Blood Transfusion Reactions: No Reported Reaction Past Psychological History: Anxiety Smoking Status: Current every day smoker Past Alcohol Use History: Occasional Past Drug Use History: Marijuana - Past Family History Brother(s) Family Medical History: Coronary Artery Disease (CAD) Additional Family Medical History / Comment(s): heart attack/cabg Mother Family Medical History: Deep Vein Thrombosis (DVT) General Exam Limitations: no limitations General appearance: alert, in no apparent distress Head exam: Present: atraumatic, normocephalic, normal inspection Eye exam: Present: normal appearance, PERRL, EOMI. Absent: scleral icterus, conjunctival injection, periorbital swelling ENT exam: Present: normal exam, normal oropharynx, mucous membranes moist, TM's normal bilaterally Neck exam: Present: normal inspection, full ROM. Absent: tenderness, meningismus, lymphadenopathy Respiratory exam: Present: respiratory distress (Mild), wheezes (Bilateral, throughout and audible). Absent: normal lung sounds bilaterally, rales, rhonchi , stridor Cardiovascular Exam: Present: regular rate, normal rhythm, normal heart sounds. Absent: systolic murmur, diastolic murmur, rubs, gallop, clicks Skin exam: Present: warm, dry, intact, normal color. Absent: rash Course Vital Signs 04/24/17 04/24/17 04/24/17 12:38 12:52 13:11 Temperature 97.5 F L Pulse Rate 94 85 Respiratory 24 24 22 Rate Blood Pressure 133/81 115/83 O2 Sat by Pulse 96 95 Oximetry 04/24/17 04/24/17 04/24/17 13:15 13:34 14:43 Temperature Pulse Rate 83 83 76 Respiratory 22 Rate Blood Pressure 131/84 O2 Sat by Pulse 94 L Oximetry Medical Decision Making - Lab Data Result diagrams: 04/24/17 13:15 04/24/17 13:15 Lab Results 04/24/17 04/24/17 04/24/17 Range/Units 13:15 13:15 13:15 WBC 8.3 (3.8-10.6) k/uL RBC 5.61 (4.30-5.90) m/uL Hgb 16.9 (13.0-17.5) gm/dL Hct 52.1 (39.0-53.0) % MCV 92.9 (80.0-100.0) fL MCH 30.2 (25.0-35.0) pg MCHC 32.5 (31.0-37.0) g/dL RDW 14.1 (11.5-15.5) % Plt Count 181 (150-450) k/uL Neutrophils % 64 % Lymphocytes % 21 % Monocytes % 6 % Eosinophils % 7 % Basophils % 1 % Neutrophils # 5.3 (1.3-7.7) k/uL Lymphocytes # 1.7 (1.0-4.8) k/uL Monocytes # 0.5 (0-1.0) k/uL Eosinophils # 0.6 (0-0.7) k/uL Basophils # 0.1 (0-0.2) k/uL PT (9.0-12.0) sec INR (<1.2) APTT (22.0-30.0) sec Sodium 140 (137-145) mmol/L Potassium 3.8 (3.5-5.1) mmol/L Chloride 100 (98-107) mmol/L Carbon Dioxide 30 (22-30) mmol/L Anion Gap 10 mmol/L BUN 16 (9-20) mg/dL Creatinine 0.90 (0.66-1.25) mg/dL Est GFR (MDRD) Af Amer >60 (>60 ml/min/1.73 sqM) Est GFR (MDRD) Non-Af >60 (>60 ml/min/1.73 sqM) Glucose 117 H (74-99) mg/dL Calcium 8.6 (8.4-10.2) mg/dL Magnesium 1.3 L (1.6-2.3) mg/dL Total Bilirubin 0.4 (0.2-1.3) mg/dL AST 27 (17-59) U/L ALT 28 (21-72) U/L Alkaline Phosphatase 89 (38-126) U/L Total Creatine Kinase 121 (55-170) U/L CK-MB (CK-2) 1.6 (0.0-2.4) ng/mL CK-MB (CK-2) Rel Index 1.3 Troponin I <0.012 (0.000-0.034) ng/mL Total Protein 6.9 (6.3-8.2) g/dL Albumin 3.8 (3.5-5.0) g/dL 04/24/17 Range/Units 13:15 WBC (3.8-10.6) k/uL RBC (4.30-5.90) m/uL Hgb (13.0-17.5) gm/dL Hct (39.0-53.0) % MCV (80.0-100.0) fL MCH (25.0-35.0) pg MCHC (31.0-37.0) g/dL RDW (11.5-15.5) % Plt Count (150-450) k/uL Neutrophils % % Lymphocytes % % Monocytes % % Eosinophils % % Basophils % % Neutrophils # (1.3-7.7) k/uL Lymphocytes # (1.0-4.8) k/uL Monocytes # (0-1.0) k/uL Eosinophils # (0-0.7) k/uL Basophils # (0-0.2) k/uL PT 52.5 H (9.0-12.0) sec INR 5.8 H* (<1.2) APTT 40.7 H (22.0-30.0) sec Sodium (137-145) mmol/L Potassium (3.5-5.1) mmol/L Chloride (98-107) mmol/L Carbon Dioxide (22-30) mmol/L Anion Gap mmol/L BUN (9-20) mg/dL Creatinine (0.66-1.25) mg/dL Est GFR (MDRD) Af Amer (>60 ml/min/1.73 sqM) Est GFR (MDRD) Non-Af (>60 ml/min/1.73 sqM) Glucose (74-99) mg/dL Calcium (8.4-10.2) mg/dL Magnesium (1.6-2.3) mg/dL Total Bilirubin (0.2-1.3) mg/dL AST (17-59) U/L ALT (21-72) U/L Alkaline Phosphatase (38-126) U/L Total Creatine Kinase (55-170) U/L CK-MB (CK-2) (0.0-2.4) ng/mL CK-MB (CK-2) Rel Index Troponin I (0.000-0.034) ng/mL Total Protein (6.3-8.2) g/dL Albumin (3.5-5.0) g/dL 04/24/17 14:48 EKG performed at 12:53 normal sinus rhythm with a rate of 96 MA 114 QRS 92 QT/ QTC 372/469 Disposition Clinical Impression: Acute exacerbation of chronic obstructive airways disease, Bilateral pneumonia , Hypomagnesemia Disposition: ADMITTED IP TO THIS HOSP Condition: Fair Referrals: Malik Bui MD [Primary Care Provider] - 1-2 days
[2017-04-24 13:35] LABS: Basophils # (A) 0.1 k/uL (0-0.2); Basophils % (A) 1 %; Eosinophils # (A) 0.6 k/uL (0-0.7); Eosinophils % (A) 7 %; HCT 52.1 % (39.0-53.0); HGB 16.9 gm/dL (13.0-17.5); Lymphocytes # (A) 1.7 k/uL (1.0-4.8); Lymphocytes % (A) 21 %; MCH 30.2 pg (25.0-35.0); MCHC 32.5 g/dL (31.0-37.0); MCV 92.9 fL (80.0-100.0); Mean Platelet Volume 7.9; Monocytes # (A) 0.5 k/uL (0-1.0); Monocytes % (A) 6 %; Neutrophils # (A) 5.3 k/uL (1.3-7.7); Neutrophils % (A) 64 %; Platelet Count 181 k/uL (150-450); RBC 5.61 m/uL (4.30-5.90); RDW 14.1 % (11.5-15.5); WBC 8.3 k/uL (3.8-10.6)
[2017-04-24 13:50] LABS: Partial Thromboplastin Time 40.7 sec (22.0-30.0)
[2017-04-24 13:57] LABS: Albumin 3.8 g/dL (3.5-5.0); Anion Gap 10 mmol/L; Carbon Dioxide 30 mmol/L (22-30); Chloride 100 mmol/L (98-107); Glucose 117 mg/dL (74-99); Potassium 3.8 mmol/L (3.5-5.1); Sodium 140 mmol/L (137-145); Total Protein 6.9 g/dL (6.3-8.2)
[2017-04-24 13:58] LABS: Creatine Kinase 121 U/L (55-170); Prothrombin Time 52.5 sec (9.0-12.0)
[2017-04-24 14:00] LABS: INR 5.8 (<1.2)
[2017-04-24 14:11] LABS: Creatine Kinase MB 1.6 ng/mL (0.0-2.4); Troponin I <0.012 ng/mL (0.000-0.034)
[2017-04-24 14:20] LABS: ALT 28 U/L (21-72); AST 27 U/L (17-59); Alkaline Phosphatase 89 U/L (38-126); Blood Urea Nitrogen 16 mg/dL (9-20); Calcium 8.6 mg/dL (8.4-10.2); Magnesium 1.3 mg/dL (1.6-2.3); Total Bilirubin 0.4 mg/dL (0.2-1.3)
--- NOTE | 2017-04-24 14:34 | XR ---
EXAMINATION TYPE: XR chest 2V DATE OF EXAM: 04/24/2017 COMPARISON: 12/02/2016 TECHNIQUE: PA and lateral views submitted. HISTORY: Difficulty breathing FINDINGS: Bilateral perihilar interstitial pattern. Could not exclude a nodule involving the left midlung. No p leural effusion or pneumothorax. Heart size stable. IMPRESSION: 1. Bilateral perihilar infiltrate greater on the right may been the basis of early pneumonia. 2. There is a nodular density in the left midlung measuring approximately 1.[address] sc an.
[2017-04-24] MEDS ORDERED: LEVOFLOXACIN 750MG-D5W PMX 750 MG in DEXTROSE/WATER 1 150ML.BAG IVPB STA (14:40)
[2017-04-24] MEDS ORDERED: MAGNESIUM SULFATE-D5W PMX 1 GM in DEXTROSE/WATER 1 100ML.BAG IVPB ONE (14:40)
[2017-04-24] MEDS ORDERED: HYDROcodone/APAP 10-325MG 1 EACH TAB PO ONE (14:47)
[2017-04-24] MEDS ORDERED: PNEUMONIA PROTOCOL UTILIZED 1 EACH MISC PO PRN (14:52)
[2017-04-24] MEDS: IPRATROPIUM-ALBUTEROL 3 ML NEB INHALATION SCH ×2 (17:33→20:30)
[2017-04-24] MEDS: methylPREDNISolone SOD SUCCI 125 MG/2 ML VIAL IV SCH (18:43)
[2017-04-24] MEDS: METOPROLOL TARTRATE 25 MG TAB PO SCH (20:16)
[2017-04-24] MEDS: HYDROcodone/APAP 10-325MG 1 EACH TAB PO PRN (20:24)
[2017-04-24] MEDS: NICOTINE 21MG/24HR PATCH TRANSDERM SCH (20:27)
[2017-04-24] MEDS: SYMBICORT 80-4.5 MCG INHALER INHALATION SCH (20:30)
[2017-04-24 21:05] LABS: Glucose,Whole Blood 205 mg/dL (75-99)
[2017-04-24] MEDS: INSULIN ASPART 100 UNIT/ML 1 ML 10 ML VIAL SQ SCH (22:47)
[2017-04-24] MEDS: DIAZEPAM 5 MG TAB PO PRN (22:48)
[2017-04-25] MEDS: methylPREDNISolone SOD SUCCI 125 MG/2 ML VIAL IV SCH ×5 (00:18→23:22)
[2017-04-25] MEDS: IPRATROPIUM-ALBUTEROL 3 ML NEB INHALATION SCH ×7 (00:24→23:32)
[2017-04-25] MEDS: HYDROcodone/APAP 10-325MG 1 EACH TAB PO PRN ×4 (03:45→23:18)
[2017-04-25] MEDS: INSULIN ASPART 100 UNIT/ML 1 ML 10 ML VIAL SQ SCH ×5 (03:47→21:47)
[2017-04-25] MEDS: SYMBICORT 80-4.5 MCG INHALER INHALATION SCH ×2 (07:09→19:59)
[2017-04-25 07:44] LABS: Glucose,Whole Blood 161 mg/dL (75-99)
[2017-04-25] MEDS: NICOTINE 21MG/24HR PATCH TRANSDERM SCH (08:04)
[2017-04-25] MEDS: MAGNESIUM OXIDE 400 MG TAB PO SCH (08:04)
--- NOTE | 2017-04-25 08:24 | P.HPIM ---
History of Present Illness H&P Date: 04/25/17 Chief Complaint: Dyspnea on exertion with cough. This is a history and physical 62-year-old white male with known history of DVT hypertension and COPD. He states worsening shortness of breath over the last several days. His house is Quite warm secondary to his was chronic illness. The patient has no voiding difficulties. However, his dyspnea and cough which is nonproductive, was becoming worse. No overt fever or chills. He is having significant difficulty with insomnia. He denies any illicit substance abuse. No significant illicit substance abuse is stated. Review of Systems Constitutional: Denies chills, Denies fever Eyes: denies blurred vision, denies pain Ears, nose, mouth and throat: Denies headache, Denies sore throat Cardiovascular: Denies chest pain, Denies shortness of breath Respiratory: Reports cough, Reports dyspnea, Reports pleurisy, Denies hemoptysis Gastrointestinal: Denies abdominal pain, Denies diarrhea, Denies nausea, Denies vomiting Musculoskeletal: Denies myalgias Integumentary: Denies pruritus, Denies rash Neurological: Denies numbness, Denies weakness Past Medical History Past Medical History: COPD, Deep Vein Thrombosis (DVT), GERD/Reflux, Hearing Disorder / Deafness, Osteoarthritis (OA), Pneumonia, Vascular Disorder Additional Past Medical History / Comment(s): CHRONIC BRONCHITIS.stated has been using 02 3 liters n/c past few weeks. DVT of the right lower extremity in 2007 , peripheral vascular disease, past wound bottom rt foot. History of Any Multi-Drug Resistant Organisms: MRSA Date of last positivie culture/infection: 2007 MDRO Source:: NECK Past Surgical History: Hernia Repair, Orthopedic Surgery Additional Past Surgical History / Comment(s): Bilateral femoral bypass surgery , arthroscopic left knee surgery, bilateral inguinal hernia repair, partial left great toe excision/amputation . Past Anesthesia/Blood Transfusion Reactions: No Reported Reaction Smoking Status: Current every day smoker - Past Family History Brother(s) Family Medical History: Coronary Artery Disease (CAD) Additional Family Medical History / Comment(s): heart attack/cabg Father Family Medical History: No Reported History Mother Family Medical History: Deep Vein Thrombosis (DVT) Medications and Allergies Home Medications Medication Instructions Recorded Confirmed Type Metoprolol Tartrate 25 mg PO HS 12/15/14 04/24/17 History Warfarin [Coumadin] 5 mg PO HS 09/21/15 04/24/17 History HYDROcodone/APAP 10-325MG [[place] 1 tab PO Q6H PRN 01/18/16 04/24/17 History 10-325] Diazepam [Valium] 5 mg PO BID PRN 02/15/16 04/24/17 History Albuterol Nebulized [Ventolin 2.5 mg INHALATION RT-QID PRN #120 05/21/16 Rx Nebulized] nebu Fluticasone/Salmeterol [Advair 1 puff INHALATION RT-BID 10/20/16 04/24/17 History 250-50 Diskus] Colchicine [Colcrys] 0.6 mg PO DAILY 12/02/16 04/24/17 History Magnesium Gluconate [Magonate] 500 mg PO DAILY 12/02/16 04/24/17 History Zinc 50 mg PO DAILY 12/02/16 04/24/17 History Allergies Allergy/AdvReac Type Severity Reaction Status Date / Time No Known Allergies Allergy Verified 04/24/17 13:02 Physical Exam Vitals: Vital Signs Temp Pulse Pulse Resp BP BP BP 04/25/17 07:23 100 04/25/17 07:10 92 04/25/17 07:00 97.0 F L 90 18 134/80 04/25/17 03:59 96 04/25/17 03:48 92 04/25/17 00:34 100 16 04/25/17 00:24 92 16 04/24/17 22:46 97.6 F 91 20 128/80 04/24/17 20:30 109 H 04/24/17 20:15 22 04/24/17 20:05 104 H 155/81 04/24/17 18:15 97.9 F 106 H 22 189/86 04/24/17 17:45 98 04/24/17 17:34 98 04/24/17 16:56 98.0 F 82 20 132/74 04/24/17 16:00 100 22 167/87 04/24/17 15:15 98.1 F 77 20 120/67 04/24/17 14:43 76 22 131/84 04/24/17 13:34 83 04/24/17 13:15 83 04/24/17 13:11 85 22 115/83 04/24/17 12:52 24 04/24/17 12:38 97.5 F L 94 24 133/81 Pulse Ox 04/25/17 07:23 04/25/17 07:10 95 04/25/17 07:00 93 L 04/25/17 03:59 04/25/17 03:48 04/25/17 00:34 04/25/17 00:24 04/24/17 22:46 91 L 04/24/17 20:30 04/24/17 20:15 04/24/17 20:05 04/24/17 18:15 95 04/24/17 17:45 04/24/17 17:34 04/24/17 16:56 94 L 04/24/17 16:00 94 L 04/24/17 15:15 97 04/24/17 14:43 94 L 04/24/17 13:34 04/24/17 13:15 04/24/17 13:11 95 04/24/17 12:52 04/24/17 12:38 96 Intake and Output 04/24/17 04/25/17 04/25/17 22:59 06:59 14:59 Intake Total 100 Balance 100 Intake: Amount of Fluid Infused ( 100 ml) Other: Voiding Method Toilet Toilet # Voids 2 2 - Constitutional General appearance: obese - EENT Eyes: EOMI - Neck Neck: no lymphadenopathy - Respiratory Respiratory: bilateral: diminished, wheezing - Cardiovascular Rhythm: regular Heart sounds: normal: S1, S2 - Gastrointestinal General gastrointestinal: soft, no tenderness - Integumentary Integumentary: no cellulitis - Neurologic Neurologic: CNII-XII intact - Musculoskeletal Musculoskeletal: gait normal - Psychiatric Psychiatric: A&O x's 3, appropriate affect Results CBC & Chem 7: 04/24/17 13:15 04/24/17 13:15 Labs: Abnormal Lab Results - Last 24 Hours (Table) 04/24/17 04/24/17 04/24/17 Range/Units 13:15 13:15 21:05 PT 52.5 H (9.0-12.0) sec INR 5.8 H* (<1.2) APTT 40.7 H (22.0-30.0) sec Glucose 117 H (74-99) mg/dL POC Glucose (mg/dL) 205 H (75-99) mg/dL Magnesium 1.3 L (1.6-2.3) mg/dL 04/25/17 Range/Units 07:25 PT (9.0-12.0) sec INR (<1.2) APTT (22.0-30.0) sec Glucose (74-99) mg/dL POC Glucose (mg/dL) 161 H (75-99) mg/dL Magnesium (1.6-2.3) mg/dL Thrombosis Risk Factor Assmnt - Choose All That Apply Any of the Below Risk Factors Present?: Yes Each Factor Represents 1 point: Abnormal pulmonary function (COPD), Age 41-60 years, Obesity (BMI >25) Other Risk Factors: Yes Each Risk Factor Represents 3 Points: Family history of DVT/PE, History of DVT/ PE Other congenital or acquired thrombophilia - If yes, enter type in comment: No Thrombosis Risk Factor Assessment Total Risk Factor Score: 9 Thrombosis Risk Factor Assessment Level: High Risk Assessment and Plan (1) Acute exacerbation of chronic obstructive airways disease Current Visit: Yes Status: Acute Code(s): J44.1 - CHRONIC OBSTRUCTIVE PULMONARY DISEASE W (ACUTE) EXACERBATION SNOMED Code(s): 582445248 (2) COPD exacerbation Current Visit: No Status: Acute Code(s): J44.1 - CHRONIC OBSTRUCTIVE PULMONARY DISEASE W (ACUTE) EXACERBATION SNOMED Code(s): 214301580848079 Plan: Go ahead and continue current regimen of son Medrol with nebulizer treatments and empiric antibiotic therapy. Supratherapeutic INR is noted. We will withhold Coumadin and recheck serially. New Check CBC and CMP in a.m. also. Ambien when necessary for sleep. Otherwise, Dr. Recio's group become for the weekend. Time with Patient: Greater than 30
--- NOTE | 2017-04-25 09:09 | XR ---
EXAMINATION TYPE: XR chest 2V DATE OF EXAM: 04/25/2017 COMPARISON: 04/24/2017 TECHNIQUE: PA and lateral views submitted. HISTORY: Difficulty breathing FINDINGS: Bilateral subsegmental consolidation greater on the left noted. Improvement on the right noted on tod ay's exam. No interstitial edema or pneumothorax. No sizable pleural effusion. Heart size stable. IMPRESSION: 1. Basilar atelectasis or infiltrate slightly improved on the right.
[2017-04-25] MEDS: COLCHICINE 0.6 MG TAB PO SCH (09:12)
[2017-04-25] MEDS: DIAZEPAM 5 MG TAB PO PRN ×2 (09:12→21:47)
--- NOTE | 2017-04-25 12:33 | CDI ---
Last Revision, February 2017 Documentation Clarification Form Date: 04/25/2017 12:21:00 PM From: Ladonna Rios Admit Date: 04/24/2017 2:47:00 PM Patient Name: Horacio Garza Visit Number: [id number] ATTENTION: The Clinical Documentation Specialists (CDI) and [facility] Coding Staff appreciate your assistance in clarifying documentation. Please respond to the clarification below the line at the bottom and electronically sign. The CDI & [facility] Coding staff will review the response and follow-up if needed. Please note: Queries are made part of the Legal Health Record. If you have any questions, please contact the author of this message via ITS. Dr. Malik Bui, Pneumonia was documented in ER notes "pneumonia". Patient is on Pneumonia protocol History/Risk Factors: COPD with home 02, DVT, GERD, OA, pneumonia, vascular disorder, chronic bronchitis Clinical Indicators: WBC on admission: 8.3 X-ray: "bilateral perihilar infiltrate greater on right basis of early pneumonia" Treatment: Antibiotics: IV Levofloxacin Pneumonia protocal O2: 95% 2L Breathing Tx: Duoneb Q4h In order to capture the severity of condition, please clarify if the condition signifies and you are treating for: Pneumonia ruled in Pneumonia ruled out Bacterial Pneumonia, specify causal organism (if known) Gram Negative Pneumonia Other bacteria (please specify) Unable to determine Please continue to document in your progress notes and discharge summary in order to capture severity of illness and risk of mortality. Include clinical findings that support your diagnosis. please add that the patient has pneumonia ruled in. MTDD
[2017-04-25 12:41] LABS: Glucose,Whole Blood 180 mg/dL (75-99)
[2017-04-25] MEDS: LEVOFLOXACIN 750MG-D5W PMX 750 MG in DEXTROSE/WATER 1 150ML.BAG IVPB SCH (15:25)
[2017-04-25 17:01] LABS: Glucose,Whole Blood 196 mg/dL (75-99)
[2017-04-25 20:57] LABS: Glucose,Whole Blood 171 mg/dL (75-99)
[2017-04-25] MEDS: METOPROLOL TARTRATE 25 MG TAB PO SCH (21:40)
[2017-04-25] MEDS: ZOLPIDEM 10 MG TAB PO PRN (23:21)
[2017-04-26 02:00] LABS: Glucose,Whole Blood 145 mg/dL (75-99)
[2017-04-26] MEDS: INSULIN ASPART 100 UNIT/ML 1 ML 10 ML VIAL SQ SCH ×5 (02:23→22:03)
[2017-04-26] MEDS: IPRATROPIUM-ALBUTEROL 3 ML NEB INHALATION SCH ×6 (03:16→23:38)
[2017-04-26] MEDS: HYDROcodone/APAP 10-325MG 1 EACH TAB PO PRN ×3 (05:46→19:58)
[2017-04-26] MEDS: methylPREDNISolone SOD SUCCI 125 MG/2 ML VIAL IV SCH ×3 (05:57→18:10)
[2017-04-26 07:41] LABS: Glucose,Whole Blood 147 mg/dL (75-99)
[2017-04-26] MEDS: NICOTINE 21MG/24HR PATCH TRANSDERM SCH (08:22)
[2017-04-26] MEDS: COLCHICINE 0.6 MG TAB PO SCH (08:23)
[2017-04-26] MEDS: DIAZEPAM 5 MG TAB PO PRN ×2 (08:29→22:06)
[2017-04-26] MEDS: SYMBICORT 80-4.5 MCG INHALER INHALATION SCH ×2 (08:31→20:25)
[2017-04-26 08:50] LABS: HCT 50.4 % (39.0-53.0); HGB 16.1 gm/dL (13.0-17.5); MCH 30.2 pg (25.0-35.0); MCV 94.5 fL (80.0-100.0); Mean Platelet Volume 8.1; Platelet Count 179 k/uL (150-450); RBC 5.34 m/uL (4.30-5.90); RDW 14.1 % (11.5-15.5); WBC 15.7 k/uL (3.8-10.6)
[2017-04-26 08:54] LABS: INR 2.1 (<1.2)
[2017-04-26 09:05] LABS: ALT 32 U/L (21-72); AST 27 U/L (17-59); Alkaline Phosphatase 78 U/L (38-126); Anion Gap 11 mmol/L; Blood Urea Nitrogen 21 mg/dL (9-20); Calcium 9.2 mg/dL (8.4-10.2); Carbon Dioxide 32 mmol/L (22-30); Chloride 97 mmol/L (98-107); Glucose 165 mg/dL (74-99); Potassium 4.1 mmol/L (3.5-5.1); Sodium 140 mmol/L (137-145); Total Bilirubin 0.5 mg/dL (0.2-1.3); Total Protein 6.9 g/dL (6.3-8.2)
[2017-04-26] MEDS: MAGNESIUM OXIDE 400 MG TAB PO SCH (09:48)
[2017-04-26 12:34] LABS: Glucose,Whole Blood 217 mg/dL (75-99)
[2017-04-26] MEDS: LEVOFLOXACIN 750MG-D5W PMX 750 MG in DEXTROSE/WATER 1 150ML.BAG IVPB SCH (16:57)
[2017-04-26 17:19] LABS: Glucose,Whole Blood 127 mg/dL (75-99)
[2017-04-26] MEDS: METOPROLOL TARTRATE 25 MG TAB PO SCH (20:00)
[2017-04-26 21:06] LABS: Glucose,Whole Blood 181 mg/dL (75-99)
[2017-04-27] MEDS: HYDROcodone/APAP 10-325MG 1 EACH TAB PO PRN ×3 (00:16→13:54)
[2017-04-27] MEDS: ZOLPIDEM 10 MG TAB PO PRN (00:16)
[2017-04-27] MEDS: methylPREDNISolone SOD SUCCI 125 MG/2 ML VIAL IV SCH ×3 (00:23→12:39)
[2017-04-27 02:51] VITALS: RESP 20
[2017-04-27] MEDS: IPRATROPIUM-ALBUTEROL 3 ML NEB INHALATION SCH ×3 (03:22→11:03)
[2017-04-27 03:30] LABS: Glucose,Whole Blood 151 mg/dL (75-99)
[2017-04-27] MEDS: INSULIN ASPART 100 UNIT/ML 1 ML 10 ML VIAL SQ SCH ×3 (04:02→12:39)
[2017-04-27 06:17] VITALS: BP 122/63; TEMP 97.1
[2017-04-27] MEDS: SYMBICORT 80-4.5 MCG INHALER INHALATION SCH (07:29)
[2017-04-27 07:33] LABS: Glucose,Whole Blood 153 mg/dL (75-99)
[2017-04-27] MEDS: DIAZEPAM 5 MG TAB PO PRN (07:49)
[2017-04-27] MEDS: MAGNESIUM OXIDE 400 MG TAB PO SCH (07:49)
[2017-04-27] MEDS: NICOTINE 21MG/24HR PATCH TRANSDERM SCH (07:49)
[2017-04-27] MEDS: COLCHICINE 0.6 MG TAB PO SCH (07:50)
[2017-04-27 09:08] LABS: INR 1.6 (<1.2); Prothrombin Time 14.5 sec (9.0-12.0)
[2017-04-27 11:06] VITALS: PULSE 78
[2017-04-27 12:28] LABS: Glucose,Whole Blood 260 mg/dL (75-99)
[2017-04-27] MEDS ORDERED: predniSONE 50 MG TAB PO SCH (15:00)
[2017-04-27] MEDS: LEVOFLOXACIN 750MG-D5W PMX 750 MG in DEXTROSE/WATER 1 150ML.BAG IVPB SCH (15:49)
[2017-04-27] MEDS ORDERED: WARFARIN 5 MG TAB PO SCH (18:00)
--- NOTE | 2017-05-16 11:27 | P.PN ---
Subjective Progress Note Date: 04/26/17 Principal diagnosis: Acute COPD exacerbation This is a history and physical 62-year-old white male with known history of DVT hypertension and COPD. He states worsening shortness of breath over the last several days. His house is Quite warm secondary to his was chronic illness. The patient has no voiding difficulties. However, his dyspnea and cough which is nonproductive, was becoming worse. No overt fever or chills. He is having significant difficulty with insomnia. He denies any illicit substance abuse. No significant illicit substance abuse is stated. On 04/26/2017 Patient's breathing status is much improved today. Otherwise patient still having shortness of breath with ambulation. INR level came down to therapeutic now. No fever no chills. No other acute overnight issues. All other review of systems negative except above Current medications reviewed Objective - Vital Signs Vital signs: Vital Signs Temp 97.2 F L 04/26/17 15:00 Pulse 92 04/26/17 20:36 Resp 22 04/26/17 15:00 BP 122/75 04/26/17 15:00 Pulse Ox 93 L 04/26/17 15:00 Intake & Output 04/26/17 04/26/17 04/27/17 06:59 18:59 06:59 Intake Total 1440 1110 Balance 1440 1110 Weight 111.13 kg Intake: Intake, IV Titration 150 Amount Levofloxacin 750Mg-D5w 150 Pmx 750 mg In Dextrose/ Water 1 150ml.bag @ 100 mls/hr IVPB Q24H [facility] Rx#: [id number] Oral 1440 960 Other: Voiding Method Toilet # Voids 1 3 # Bowel Movements 0 - Exam PHYSICAL EXAMINATION: Patient is lying in the bed comfortably, no acute distress, awake alert and oriented.. HEENT: Normocephalic. Neck is supple. Pupils reactive. Nostrils clear. Oral cavity is moist. Ears reveal no drainage. Neck reveals no JVD, carotid bruits, or thyromegaly. CHEST EXAMINATION: Trachea is central. Symmetrical expansion. Expiratory wheezing. No crackles or rhonchi.. CARDIAC: Normal S1, S2 with no gallops. No murmurs ABDOMEN: Soft. Bowel sounds normal. No organomegaly. No abdominal bruits. Extremities: reveal no edema. No clubbing or cyanosis Neurologically awake, alert, oriented x3 with well-coordinated movements. No focal deficits noted Skin: No rash or skin lesions. Psychiatric: Coperative. Nonsuicidal Musculoskeletal: No joint swelling or deformity. Normal range of motion. - Labs CBC & Chem 7: 04/26/17 08:09 04/26/17 08:09 Labs: Abnormal Lab Results - Last 24 Hours (Table) 04/26/17 04/26/17 04/26/17 Range/Units 01:40 07:23 08:09 WBC 15.7 H (3.8-10.6) k/uL PT (9.0-12.0) sec INR (<1.2) Chloride (98-107) mmol/L Carbon Dioxide (22-30) mmol/L BUN (9-20) mg/dL Glucose (74-99) mg/dL POC Glucose (mg/dL) 145 H 147 H (75-99) mg/dL 04/26/17 04/26/17 04/26/17 Range/Units 08:09 08:09 12:24 WBC (3.8-10.6) k/uL PT 19.0 H (9.0-12.0) sec INR 2.1 H (<1.2) Chloride 97 L (98-107) mmol/L Carbon Dioxide 32 H (22-30) mmol/L BUN 21 H (9-20) mg/dL Glucose 165 H (74-99) mg/dL POC Glucose (mg/dL) 217 H (75-99) mg/dL 04/26/17 04/26/17 Range/Units 17:06 21:04 WBC (3.8-10.6) k/uL PT (9.0-12.0) sec INR (<1.2) Chloride (98-107) mmol/L Carbon Dioxide (22-30) mmol/L BUN (9-20) mg/dL Glucose (74-99) mg/dL POC Glucose (mg/dL) 127 H 181 H (75-99) mg/dL Microbiology - Last 24 Hours (Table) 04/24/17 15:00 Blood Culture - Preliminary Blood No Growth after 48 hours 04/24/17 15:02 Blood Culture - Preliminary Blood No Growth after 48 hours 04/26/17 09:35 Gram Stain - Final Sputum Sputum Culture - Final Assessment and Plan Assessment: Acute COPD exacerbation Paroxysmal Atrial fibrillation on anticoagulation Supratherapeutic INR Hypertension Obesity DVT prophylaxis Plan: Patient will be continued on IV steroids and breathing treatments and empiric antibiotics. Coumadin will be restarted. We will continue to follow closely. Anticipate discharge in next 24 hours. Time with Patient: Greater than 30
--- NOTE | 2017-05-16 11:29 | P.DS ---
Providers Date of admission: 04/24/17 14:47 Expected date of discharge: 04/27/17 Attending physician: Malik Bui Primary care physician: Malik Bui Hospital Course: Discharge diagnosis Acute COPD exacerbation Paroxysmal Atrial fibrillation on anticoagulation Supratherapeutic INR Hypertension Obesity DVT prophylaxis Hospital course This is a history and physical 62-year-old white male with known history of DVT hypertension and COPD. He states worsening shortness of breath over the last several days. His house is Quite warm secondary to his was chronic illness. The patient has no voiding difficulties. However, his dyspnea and cough which is nonproductive, was becoming worse. No overt fever or chills. He is having significant difficulty with insomnia. He denies any illicit substance abuse. No significant illicit substance abuse is stated. On 04/26/2017 Patient's breathing status is much improved today. Otherwise patient still having shortness of breath with ambulation. INR level came down to therapeutic now. No fever no chills. No other acute overnight issues. Patient was continued on IV steroids and breathing treatments and empiric antibiotics. Coumadin was restarted once therapeutic level. Patient did improve clinically and is stable for discharge home today Discharge physical examination PHYSICAL EXAMINATION: Patient is lying in the bed comfortably, no acute distress, awake alert and oriented.. HEENT: Normocephalic. Neck is supple. Pupils reactive. Nostrils clear. Oral cavity is moist. Ears reveal no drainage. Neck reveals no JVD, carotid bruits, or thyromegaly. CHEST EXAMINATION: Trachea is central. Symmetrical expansion. Lung lopez clear to auscultation and percussion. CARDIAC: Normal S1, S2 with no gallops. No murmurs ABDOMEN: Soft. Bowel sounds normal. No organomegaly. No abdominal bruits. Extremities: reveal no edema. No clubbing or cyanosis Neurologically awake, alert, oriented x3 with well-coordinated movements. No focal deficits noted Skin: No rash or skin lesions. Psychiatric: Coperative. Nonsuicidal Musculoskeletal: No joint swelling or deformity. Normal range of motion. . Patient Condition at Discharge: Fair Plan - Discharge Summary Discharge Rx Participant: No New Discharge Prescriptions: New Levofloxacin [Levaquin] 500 mg PO DAILY 4 Days #4 tab Nicotine 21Mg/24Hr Patch [Habitrol] 1 patch TRANSDERM DAILY #7 patch predniSONE See Taper PO DAILY #30 tab Continue Metoprolol Tartrate 25 mg PO HS Warfarin [Coumadin] 5 mg PO HS Diazepam [Valium] 5 mg PO BID PRN PRN Reason: Anxiety Albuterol Nebulized [Ventolin Nebulized] 2.5 mg INHALATION RT-QID PRN #120 nebu PRN Reason: Shortness Of Breath Fluticasone/Salmeterol [Advair 250-50 Diskus] 1 puff INHALATION RT-BID Zinc 50 mg PO DAILY Magnesium Gluconate [Magonate] 500 mg PO DAILY Colchicine [Colcrys] 0.6 mg PO DAILY HYDROcodone/APAP 10-325MG [[place] 10-325] 1 tab PO Q6H PRN #20 tab PRN Reason: Pain Discharge Medication List Metoprolol Tartrate 25 mg PO HS 12/15/14 [History] Warfarin [Coumadin] 5 mg PO HS 09/21/15 [History] Diazepam [Valium] 5 mg PO BID PRN 02/15/16 [History] Albuterol Nebulized [Ventolin Nebulized] 2.5 mg INHALATION RT-QID PRN #120 nebu 05/21/16 [Rx] Fluticasone/Salmeterol [Advair 250-50 Diskus] 1 puff INHALATION RT-BID 10/20/16 [History] Colchicine [Colcrys] 0.6 mg PO DAILY 12/02/16 [History] Magnesium Gluconate [Magonate] 500 mg PO DAILY 12/02/16 [History] Zinc 50 mg PO DAILY 12/02/16 [History] HYDROcodone/APAP 10-325MG [[place] 10-325] 1 tab PO Q6H PRN #20 tab 04/27/17 [Rx] Levofloxacin [Levaquin] 500 mg PO DAILY 4 Days #4 tab 04/27/17 [Rx] Nicotine 21Mg/24Hr Patch [Habitrol] 1 patch TRANSDERM DAILY #7 patch 04/27/17 [ Rx] predniSONE See Taper PO DAILY #30 tab 04/27/17 [Rx] Follow up Appointment(s)/Referral(s): Malik Bui MD [Primary Care Provider] - 1-2 days (call Friday for appointment, office closed) Patient Instructions/Handouts: Viral Pneumonia (DC), How to Stop Smoking (DC), COPD (Chronic Obstructive Pulmonary Disease) (DC) Discharge Disposition: HOME SELF-CARE
== END 2017-04-27 15:59 | disposition home or self-care (01) | DRG 190 ==
LOC: EC 12:35 → 4MS4W 14:47
PROVIDERS: ADMIT Family Medicine; ATTEND Family Medicine
DX: J44.1 Chronic obstructive pulmonary disease with (acute) exacerbation (principal); J18.9 Pneumonia, unspecified organism; Z99.81 Dependence on supplemental oxygen; E83.42 Hypomagnesemia; J44.0 Chronic obstructive pulmonary disease with (acute) lower respiratory infection; R79.1 Abnormal coagulation profile; I73.9 Peripheral vascular disease, unspecified; G47.00 Insomnia, unspecified; M19.90 Unspecified osteoarthritis, unspecified site; K21.9 Gastro-esophageal reflux disease without esophagitis; H91.90 Unspecified hearing loss, unspecified ear; F41.9 Anxiety disorder, unspecified; F17.200 Nicotine dependence, unspecified, uncomplicated; I10 Essential (primary) hypertension; Z79.01 Long term (current) use of anticoagulants; Z86.718 Personal history of other venous thrombosis and embolism; Z79.899 Other long term (current) drug therapy; Z79.891 Long term (current) use of opiate analgesic; Z83.2 Family history of diseases of the blood and blood-forming organs and certain disorders involving the immune mechanism; Z82.49 Family history of ischemic heart disease and other diseases of the circulatory system; Z87.19 Personal history of other diseases of the digestive system; Z89.412 Acquired absence of left great toe; Z86.14 Personal history of Methicillin resistant Staphylococcus aureus infection
CPT/HCPCS: 36415; 71046; 80053; 82550; 82553; 83735; 84484; 85025; 85027; 85610; 85730; 87040; 87070; 87205; 93005; 94640; 94760; 96365; 96367; 96375; 99285

== ENCOUNTER 2018-07-05 13:36 | Inpatient (IN) | payer MEDICARE ==
[2018-07-05] MEDS ORDERED: PIPERACILLIN-TAZOBACTAM 3.375 GM in SODIUM CHLORIDE 0.9% 100 ML IVPB STA (14:10)
[2018-07-05] MEDS ORDERED: VANCOMYCIN IV PER PHARMACY 1 EACH MISC MISCELLANE PRN (14:11)
--- NOTE | 2018-07-05 14:33 | ED ---
Skin/Abscess/FB HPI - General Source: patient, RN notes reviewed Mode of arrival: ambulatory Limitations: no limitations <Marcin Leija - Last Filed: 07/05/18 15:26> <Jesse Bolton - Last Filed: 07/05/18 15:32> - General Chief complaint: Skin/Abscess/Foreign Body Stated complaint: toe problems Time Seen by Provider: 07/05/18 13:51 - History of Present Illness Initial comments: 63-year-old male presents emergency Department chief complaint of toe infection. Patient states she started with an abscess or blister week or so ago. Patient states now has worsened and states that his toes completely black. He has had a prior partial amputation. He has known peripheral vascular disease. Patient denies any fevers chills he does admit that he's had increase for pain and redness. No noted fever or chills. (Marcin Leija) - Related Data Home Medications Medication Instructions Recorded Confirmed Metoprolol Tartrate 25 mg PO HS 12/15/14 03/03/18 Warfarin [Coumadin] 5 mg PO HS 09/21/15 03/03/18 Fluticasone/Salmeterol [Advair 1 puff INHALATION RT-BID 10/20/16 03/03/18 250-50 Diskus] Colchicine [Colcrys] 0.6 mg PO DAILY 12/02/16 03/03/18 Magnesium Gluconate [Magonate] 500 mg PO DAILY 12/02/16 03/03/18 Previous Rx's Medication Instructions Recorded Albuterol Nebulized [Ventolin 2.5 mg INHALATION RT-QID PRN #120 05/21/16 Nebulized] nebu Allergies Allergy/AdvReac Type Severity Reaction Status Date / Time No Known Allergies Allergy Verified 03/03/18 09:12 Review of Systems ROS Other: All systems not noted in ROS Statement are negative. <Marcin Leija - Last Filed: 07/05/18 15:26> ROS Other: All systems not noted in ROS Statement are negative. <Jesse Bolton - Last Filed: 07/05/18 15:32> ROS Statement: Those systems with pertinent positive or pertinent negative responses have been documented in the HPI. Past Medical History Past Medical History: COPD, Deep Vein Thrombosis (DVT), GERD/Reflux, Hearing Disorder / Deafness, Osteoarthritis (OA), Pneumonia, Vascular Disorder Additional Past Medical History / Comment(s): CHRONIC BRONCHITIS.stated has been using 02 3 liters n/c past few weeks. DVT of the right lower extremity in 2007 , peripheral vascular disease, past wound bottom rt foot. History of Any Multi-Drug Resistant Organisms: MRSA Date of last positivie culture/infection: 2007 MDRO Source:: NECK Past Surgical History: Hernia Repair, Orthopedic Surgery Additional Past Surgical History / Comment(s): Bilateral femoral bypass springer rgery, arthroscopic left knee surgery, bilateral inguinal hernia repair, partial left great toe excision/amputation . Past Anesthesia/Blood Transfusion Reactions: No Reported Reaction Past Psychological History: Anxiety Smoking Status: Current every day smoker Past Alcohol Use History: None Reported Past Drug Use History: Marijuana - Past Family History Brother(s) Family Medical History: Coronary Artery Disease (CAD) Additional Family Medical History / Comment(s): heart attack/cabg Father Family Medical History: No Reported History Mother Family Medical History: Deep Vein Thrombosis (DVT) <Marcin Leija - Last Filed: 07/05/18 15:26> General Exam Limitations: no limitations General appearance: alert, in no apparent distress Head exam: Present: atraumatic, normocephalic, normal inspection Respiratory exam: Present: normal lung sounds bilaterally. Absent: respiratory distress, wheezes, rales, rhonchi, stridor Cardiovascular Exam: Present: regular rate, normal rhythm, normal heart sounds. Absent: systolic murmur, diastolic murmur, rubs, gallop, clicks Extremities exam: Present: other (Left lower extremity first digit there is eschar noted of the first digit, faint dorsal pedis with palpable posterior tibialis, there is erythema to the mid foot, follow order of the digit.) Neurological exam: Present: alert, oriented X3, CN II-XII intact, reflexes normal. Absent: motor sensory deficit Skin exam: Present: warm, dry, intact, normal color. Absent: rash <Marcin Leija - Last Filed: 07/05/18 15:26> Course <Jesse Bolton - Last Filed: 07/05/18 15:32> Vital Signs 07/05/18 13:38 Temperature 97.7 F Pulse Rate 93 Respiratory 18 Rate Blood Pressure 126/68 O2 Sat by Pulse 98 Oximetry - Reevaluation(s) Reevaluation #1: 07/05/18 15:31 PA supervision: I personally evaluate this case patient has a history of a partially rotation of left great toe he has had issues with this over the past week and started with a blister now demonstrates evidence of eschar and cellulitis. Patient was evaluated outpatient by Dr. Rhodes. Patient will be admitted for inpatient treatment. Case is discussed with Dr. Cabrales. (Jesse Bolton) Medical Decision Making - Lab Data Result diagrams: 07/05/18 14:29 07/05/18 14:29 <Marcin Leija - Last Filed: 07/05/18 15:26> - Lab Data Result diagrams: 07/05/18 14:29 07/05/18 14:29 <Jesse Bolton - Last Filed: 07/05/18 15:32> - Medical Decision Making 63-year-old male presented for left foot problems. Patient has slightly less of his left foot with gangrenous toe. Patient started on Zosyn and Vanco admitted to [facility] group will consult. (Marcin Leija) - Lab Data Lab Results 07/05/18 07/05/18 07/05/18 Range/Units 14:29 14:29 14:29 WBC 8.6 (3.8-10.6) k/uL RBC 5.66 (4.30-5.90) m/uL Hgb 15.9 (13.0-17.5) gm/dL Hct 48.1 (39.0-53.0) % MCV 85.0 (80.0-100.0) fL MCH 28.1 (25.0-35.0) pg MCHC 33.0 (31.0-37.0) g/dL RDW 14.7 (11.5-15.5) % Plt Count 287 (150-450) k/uL Neutrophils % 72 % Lymphocytes % 16 % Monocytes % 8 % Eosinophils % 2 % Basophils % 0 % Neutrophils # 6.2 (1.3-7.7) k/uL Lymphocytes # 1.4 (1.0-4.8) k/uL Monocytes # 0.7 (0-1.0) k/uL Eosinophils # 0.1 (0-0.7) k/uL Basophils # 0.0 (0-0.2) k/uL PT (9.0-12.0) sec INR (<1.2) APTT (22.0-30.0) sec Sodium 139 (137-145) mmol/L Potassium 3.4 L (3.5-5.1) mmol/L Chloride 100 (98-107) mmol/L Carbon Dioxide 29 (22-30) mmol/L Anion Gap 10 mmol/L BUN 8 L (9-20) mg/dL Creatinine 0.73 (0.66-1.25) mg/dL Est GFR (CKD-EPI)AfAm >90 (>60 ml/min/1.73 sqM) Est GFR (CKD-EPI)NonAf >90 (>60 ml/min/1.73 sqM) Glucose 92 (74-99) mg/dL Plasma Lactic Acid [place] 1.7 (0.7-2.0) mmol/L Calcium 8.8 (8.4-10.2) mg/dL Total Bilirubin 0.4 (0.2-1.3) mg/dL AST 19 (17-59) U/L ALT 17 L (21-72) U/L Alkaline Phosphatase 101 (38-126) U/L C-Reactive Protein 72.6 H (<10.0) mg/L Total Protein 7.0 (6.3-8.2) g/dL Albumin 3.5 (3.5-5.0) g/dL 07/05/18 Range/Units 14:29 WBC (3.8-10.6) k/uL RBC (4.30-5.90) m/uL Hgb (13.0-17.5) gm/dL Hct (39.0-53.0) % MCV (80.0-100.0) fL MCH (25.0-35.0) pg MCHC (31.0-37.0) g/dL RDW (11.5-15.5) % Plt Count (150-450) k/uL Neutrophils % % Lymphocytes % % Monocytes % % Eosinophils % % Basophils % % Neutrophils # (1.3-7.7) k/uL Lymphocytes # (1.0-4.8) k/uL Monocytes # (0-1.0) k/uL Eosinophils # (0-0.7) k/uL Basophils # (0-0.2) k/uL PT 34.3 H (9.0-12.0) sec INR 3.6 H (<1.2) APTT 54.2 H (22.0-30.0) sec Sodium (137-145) mmol/L Potassium (3.5-5.1) mmol/L Chloride (98-107) mmol/L Carbon Dioxide (22-30) mmol/L Anion Gap mmol/L BUN (9-20) mg/dL Creatinine (0.66-1.25) mg/dL Est GFR (CKD-EPI)AfAm (>60 ml/min/1.73 sqM) Est GFR (CKD-EPI)NonAf (>60 ml/min/1.73 sqM) Glucose (74-99) mg/dL Plasma Lactic Acid [place] (0.7-2.0) mmol/L Calcium (8.4-10.2) mg/dL Total Bilirubin (0.2-1.3) mg/dL AST (17-59) U/L ALT (21-72) U/L Alkaline Phosphatase (38-126) U/L C-Reactive Protein (<10.0) mg/L Total Protein (6.3-8.2) g/dL Albumin (3.5-5.0) g/dL Disposition <Marcin Leija - Last Filed: 07/05/18 15:26> <Jesse Bolton - Last Filed: 07/05/18 15:32> Clinical Impression: Cellulitis of left foot, Gangrenous toe, Peripheral vascular disease Disposition: ADMITTED IP TO THIS HOSP Condition: Fair Referrals: Malik Bui MD [Primary Care Provider] - 1-2 days
[2018-07-05 14:46] LABS: Basophils % (A) 0 %; Eosinophils # (A) 0.1 k/uL (0-0.7); Eosinophils % (A) 2 %; HCT 48.1 % (39.0-53.0); HGB 15.9 gm/dL (13.0-17.5); Lymphocytes # (A) 1.4 k/uL (1.0-4.8); Lymphocytes % (A) 16 %; MCH 28.1 pg (25.0-35.0); Mean Platelet Volume 7.4; Monocytes # (A) 0.7 k/uL (0-1.0); Monocytes % (A) 8 %; Neutrophils # (A) 6.2 k/uL (1.3-7.7); Neutrophils % (A) 72 %; Platelet Count 287 k/uL (150-450); RBC 5.66 m/uL (4.30-5.90); RDW 14.7 % (11.5-15.5); WBC 8.6 k/uL (3.8-10.6)
[2018-07-05 14:49] LABS: INR 3.6 (<1.2); Partial Thromboplastin Time 54.2 sec (22.0-30.0); Prothrombin Time 34.3 sec (9.0-12.0)
[2018-07-05 14:52] LABS: ALT 17 U/L (21-72); AST 19 U/L (17-59); Albumin 3.5 g/dL (3.5-5.0); Alkaline Phosphatase 101 U/L (38-126); Anion Gap 10 mmol/L; Blood Urea Nitrogen 8 mg/dL (9-20); Calcium 8.8 mg/dL (8.4-10.2); Carbon Dioxide 29 mmol/L (22-30); Chloride 100 mmol/L (98-107); Glucose 92 mg/dL (74-99); Potassium 3.4 mmol/L (3.5-5.1); Sodium 139 mmol/L (137-145); Total Bilirubin 0.4 mg/dL (0.2-1.3)
[2018-07-05 14:55] LABS: C Reactive Protein 72.6 mg/L (<10.0)
[2018-07-05] MEDS ORDERED: VANCOMYCIN 1,750 MG in SODIUM CHLORIDE 0.9% 500 ML 500 ML IVPB ONE (15:00)
[2018-07-05] MEDS ORDERED: NALOXONE 0.4 MG/ML 1 ML VIAL IV PRN (15:28)
[2018-07-05] MEDS ORDERED: ACETAMINOPHEN TAB 325 MG TAB PO PRN (15:28)
--- NOTE | 2018-07-05 15:37 | XR ---
EXAMINATION TYPE: XR foot complete LT DATE OF EXAM: 07/05/2018 COMPARISON: 05/16/2011 HISTORY: Pain TECHNIQUE: 3 views FINDINGS: There is amputation of the entire distal phalanx of the big toe. Metatarsals are intact. I see no fracture nor dislocation. There is some erosion of the head of the proximal phalanx of the big toe as well as mild destruction of the tuft of the distal phalanx of the second toe. IMPRESSION: Bony changes in the first and second toes suspicious for osteomyelitis.
[2018-07-05] MEDS ORDERED: NICOTINE 21MG/24HR PATCH TRANSDERM STA (16:43)
[2018-07-05] MEDS ORDERED: ALBUTEROL NEBULIZED 2.5 MG/3 ML INHALATION PRN (21:39)
[2018-07-05] MEDS: VANCOMYCIN 1,500 MG in SODIUM CHLORIDE 0.9% 250 ML IVPB SCH (22:27)
[2018-07-05] MEDS: MORPHINE SULFATE 4 MG/ML SYRINGE IVP PRN (23:01)
[2018-07-05] MEDS: SODIUM CHLORIDE 0.9% 1,000 ML IV SCH (23:04)
[2018-07-06] MEDS: PIPERACILLIN-TAZOBACTAM 3.375 GM in SODIUM CHLORIDE 0.9% 100 ML IVPB SCH ×4 (00:45→20:56)
[2018-07-06] MEDS: MORPHINE SULFATE 4 MG/ML SYRINGE IVP PRN ×5 (03:07→20:57)
[2018-07-06] MEDS: VANCOMYCIN 1,500 MG in SODIUM CHLORIDE 0.9% 250 ML IVPB SCH ×2 (07:49→16:59)
[2018-07-06] MEDS: COLCHICIN-PROBENECID 0.5-500MG 1 EACH TAB PO SCH ×2 (07:49→20:56)
[2018-07-06 07:50] LABS: INR 3.2 (<1.2); Prothrombin Time 30.4 sec (9.0-12.0)
[2018-07-06] MEDS: METOPROLOL TARTRATE 25 MG TAB PO SCH (07:50)
[2018-07-06] MEDS ORDERED: diphenhydrAMINE 50 MG CAP PO STA (08:53)
[2018-07-06] MEDS: NICOTINE 21MG/24HR PATCH TRANSDERM SCH (12:20)
[2018-07-06] MEDS: SODIUM CHLORIDE 0.9% 1,000 ML IV SCH (12:23)
--- NOTE | 2018-07-06 15:10 | P.HPIM ---
History of Present Illness This is a pleasant 63 years old male with past medical history of COPD, DVT and anticoagulation, GERD, hearing difficulty, osteoarthritis. Of the left foot over the first and second toes. His been afebrile, MRSA vitals are stable. INR 3.2, CBC and BMP were unremarkable with no leukocytosis. Review of Systems CONSTITUTIONAL: No fever, no malaise, no fatigue. HEENT: No recent visual problems or hearing problems. Denied any sore throat. CARDIOVASCULAR: No orthopnea, PND, no palpitations, no syncope. PULMONARY: No shortness of breath, no cough, no hemoptysis. GASTROINTESTINAL: No diarrhea, no nausea, no vomiting, no abdominal pain. Normoactive bowel sounds. NEUROLOGICAL: No headaches, no weakness, no numbness. HEMATOLOGICAL: Denies any bleeding or petechiae. GENITOURINARY: Denies any burning micturition, frequency, or urgency. MUSCULOSKELETAL/RHEUMATOLOGICAL: Denies any joint pain, swelling, or any muscle pain. ENDOCRINE: Denies any polyuria or polydipsia. Past Medical History Past Medical History: COPD, Deep Vein Thrombosis (DVT), GERD/Reflux, Hearing Disorder / Deafness, Osteoarthritis (OA), Pneumonia, Vascular Disorder Additional Past Medical History / Comment(s): CHRONIC BRONCHITIS.stated has been using 02 3 liters n/c past few weeks. DVT of the right lower extremity in 2007 , peripheral vascular disease, past wound bottom rt foot. History of Any Multi-Drug Resistant Organisms: MRSA Date of last positivie culture/infection: 2007 MDRO Source:: NECK Past Surgical History: Hernia Repair, Orthopedic Surgery Additional Past Surgical History / Comment(s): Bilateral femoral bypass surgery, arthroscopic left knee surgery, bilateral inguinal hernia repair, partial left great toe excision/amputation . Past Anesthesia/Blood Transfusion Reactions: No Reported Reaction Past Psychological History: Anxiety Additional Psychological History / Comment(s): pt indepedant. 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 Smoking Status: Current every day smoker Past Alcohol Use History: None Reported Additional Past Alcohol Use History / Comment(s): smoker since age 18 (1972), 1 PPD Past Drug Use History: Marijuana Additional Drug Use History / Comment(s): occ use but none in 5-6 months - Past Family History Brother(s) Family Medical History: Coronary Artery Disease (CAD) Additional Family Medical History / Comment(s): heart attack/cabg Father Family Medical History: No Reported History Mother Family Medical History: Deep Vein Thrombosis (DVT) Medications and Allergies Home Medications Medication Instructions Recorded Confirmed Type Metoprolol Tartrate 25 mg PO DAILY 12/15/14 07/05/18 History Warfarin [Coumadin] 5 mg PO HS 09/21/15 07/05/18 History Albuterol Nebulized [Ventolin 2.5 mg INHALATION RT-QID PRN #120 05/21/16 07/05/18 Rx Nebulized] nebu Probenecid/Colchicine 1 tab PO BID 07/05/18 07/05/18 History [Probenecid-Colchicine Tabs] Allergies Allergy/AdvReac Type Severity Reaction Status Date / Time hydromorphone [From Dilaudid] AdvReac Hallucinati Verified 07/05/18 17:59 ons Physical Exam Vitals: Vital Signs Temp Pulse Pulse Pulse Resp BP BP 07/06/18 14:43 98.2 F 67 18 91/51 07/06/18 07:00 97.5 F L 71 16 07/06/18 01:30 98.3 F 69 20 105/70 07/05/18 19:20 98.6 F 80 16 07/05/18 17:51 98.5 F 79 15 134/78 07/05/18 17:24 97.9 F 77 18 130/76 07/05/18 15:43 75 18 109/77 BP Pulse Ox 07/06/18 14:43 93 L 07/06/18 07:00 117/76 94 L 07/06/18 01:30 96 07/05/18 19:20 127/78 95 07/05/18 17:51 96 07/05/18 17:24 97 07/05/18 15:43 100 Intake and Output 07/06/18 07/06/18 07/06/18 06:59 14:59 22:59 Intake Total 518 Balance 518 Intake: Oral 518 Other: # Voids 2 2 # Bowel Movements 0 GENERAL: The patient is alert and oriented x3, not in any acute distress. Well developed, well nourished. HEENT: Pupils are round and equally reacting to light. EOMI. No scleral icterus. No conjunctival pallor. Normocephalic, atraumatic. No pharyngeal erythema. No thyromegaly. CARDIOVASCULAR: S1 and S2 present. No murmurs, rubs, or gallops. PULMONARY: Chest is clear to auscultation, no wheezing or crackles. ABDOMEN: Soft, nontender, nondistended, normoactive bowel sounds. No palpable organomegaly. -MUSCULOSKELETAL: No joint swelling or deformity. Cellulitis of the left first and second and third toes. gangerene of the left first toe and the tips of seconds and third toes EXTREMITIES: No cyanosis, clubbing, or pedal edema. NEUROLOGICAL: Gross neurological examination did not reveal any focal deficits. SKIN: No rashes. Results CBC & Chem 7: 07/05/18 14:29 07/05/18 14:29 Labs: Abnormal Lab Results - Last 24 Hours (Table) 07/06/18 Range/Units 07:16 PT 30.4 H (9.0-12.0) sec INR 3.2 H (<1.2) Thrombosis Risk Factor Assmnt - Choose All That Apply Any of the Below Risk Factors Present?: Yes Each Factor Represents 1 point: Abnormal pulmonary function (COPD), Obesity (BMI >25) Other Risk Factors: Yes Each Risk Factor Represents 2 Points: Age 61-74 years Each Risk Factor Represents 3 Points: History of DVT/PE Thrombosis Risk Factor Assessment Total Risk Factor Score: 7 Thrombosis Risk Factor Assessment Level: High Risk Assessment and Plan Assessment: Cellulitis of the left first and second and third toes gangerene of the left first toe and the tips of seconds and third toes Osteomyelitis of first and second toes Supratherapeutic INR Current smoker, nicotine dependence History of DVT on anticoagulation History of COPD History of GERD Hearing difficulty History of osteoarthritis Plan: This is a pleasant 63 years old male who presents with cellulitis of the first and second toes, infectious disease consult , vascular surgery consult, continue with antibiotic as per ID team recommendation , follow up culture results. Continue with IV fluids. Labs and medication were reviewed.. Continue same treatment. Continue with symptomatic treatment. Resume home medication. Monitor lytes and vitals. DVT and GI prophylaxis. Further recommendations depends on the clinical course of the patient DVT prophylaxis: on coumadin GI Prophylaxis: Pepcid Prognosis is guarded
--- NOTE | 2018-07-06 15:23 | P.GSCN ---
History of Present Illness Consult date: 07/06/18 Reason for Consult: Gangrenous left big toe, surgical recommendations Requesting physician: Stewart E Sheet History of present illness: This is a 63 year old male patient who follows with Dr. Bui on an outpatient basis. He has a history of left great toe blister S/[facility] with discharge in February 2018 due to his wound being healed. He also has a history of PAD S/P bilateral femoral bypass surgery, partial left great toe amputation, DVT on chronic coumadin therapy, COPD, and current tobacco and marijuana dependence. He denies any history of diabetes. He presented to [facility] emergency room with complaints of infected left great toe. Apparently, he developed a new blister approximately 2 weeks ago which he states was because of his shoes. He states he called to get an appointment in the wound care center, but was unable to obtain an appointment until tomorrow, so he came to the ER for treatment. Dr. Patel was consulted as the patient is known to him, for surgical recommendations. Review of Systems Review of systems was completed and was negative except as noted. - Integumentary Reports color changes, Reports foot/leg ulcers, Reports wounds Past Medical History Past Medical History: COPD, Deep Vein Thrombosis (DVT), GERD/Reflux, Hearing Disorder / Deafness, Osteoarthritis (OA), Pneumonia, Vascular Disorder Additional Past Medical History / Comment(s): CHRONIC BRONCHITIS.stated has been using 02 3 liters n/c past few weeks. DVT of the right lower extremity in 2007 on chronic coumadin, peripheral vascular disease, past wound bottom rt foot, past blister to left great toe. History of Any Multi-Drug Resistant Organisms: MRSA Year Discovered:: 2007 MDRO Source:: NECK Past Surgical History: Hernia Repair, Orthopedic Surgery Additional Past Surgical History / Comment(s): Bilateral femoral bypass sivakumar santino, arthroscopic left knee surgery, bilateral inguinal hernia repair, partial left great toe excision/amputation . Past Anesthesia/Blood Transfusion Reactions: No Reported Reaction Past Psychological History: Anxiety Additional Psychological History / Comment(s): pt indepedant. 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 Smoking Status: Current every day smoker Past Alcohol Use History: None Reported Additional Past Alcohol Use History / Comment(s): smoker since age 18 (1972), 1 PPD Past Drug Use History: Marijuana Additional Drug Use History / Comment(s): occ use but none in 5-6 months - Past Family History Brother(s) Family Medical History: Coronary Artery Disease (CAD) Additional Family Medical History / Comment(s): heart attack/cabg Father Family Medical History: No Reported History Mother Family Medical History: Deep Vein Thrombosis (DVT) Medications and Allergies Home Medications Medication Instructions Recorded Confirmed Type Metoprolol Tartrate 25 mg PO DAILY 12/15/14 07/05/18 History Warfarin [Coumadin] 5 mg PO HS 09/21/15 07/05/18 History Albuterol Nebulized [Ventolin 2.5 mg INHALATION RT-QID PRN #120 05/21/16 07/05/18 Rx Nebulized] nebu Probenecid/Colchicine 1 tab PO BID 07/05/18 07/05/18 History [Probenecid-Colchicine Tabs] Allergies Allergy/AdvReac Type Severity Reaction Status Date / Time hydromorphone [From Dilaudid] AdvReac Hallucinati Verified 07/05/18 17:59 ons Surgical - Exam Vital Signs Temp Pulse Resp BP Pulse Ox 97.7 F 93 18 126/68 98 07/05/18 13:38 07/05/18 13:38 07/05/18 13:38 07/05/18 13:38 07/05/18 13:38 - General well developed, well nourished, no distress, no pain, chronically ill - Eyes PERRL, normal ocular movement - ENT no hearing loss, poor senior living - Neck no masses, no bruits, trachea midline - Respiratory Lung sounds diminished bilaterally. Respirations even, non-labored. Currently on room air with oxygen saturations 93%. - Cardiovascular No edema present Rhythm: regular Heart Sounds: normal: S1, S2 - Abdomen Abdomen: soft, non tender, bowel sounds - Genitourinary Deferred - Rectum Deferred - Integumentary Entire left great toe is black/gangrenous. Second toe has a small black area distal to the nail. Third toe has a black area distal to the nail. See chart for pictures. - Neurologic normal coordination - Musculoskeletal normal posture - Psychiatric oriented to time, oriented to person, oriented to place, speech is normal, memory intact Results - Labs 07/05/18 14:29 07/05/18 14:29 Abnormal Lab Results - Last 24 Hours (Table) 07/06/18 Range/Units 07:16 PT 30.4 H (9.0-12.0) sec INR 3.2 H (<1.2) - Imaging Additional studies: foot x ray reviewed Assessment and Plan Assessment: 1. Gangrenous left great toe with history of blister to his left great toe S/P treatment at the wound care center 2. PAD S/P bilateral femoral bypass surgery 3. DVT in 2007 on chronic coumadin therapy, INR today 3.2, last dose coumadin Friday per patient 4. Current tobacco and marijuana dependence 5. Denies history of diabetes, last hemaglobin A1c 6.5% in 2017 Plan: The patient was seen and examined at the bedside. The left great toe is completely black and foul smelling. Will discuss the case in detail with Dr. Patel, but patient will likely need amputation. Continue to hold coumadin, may bridge with heparin or lovenox for DVT prophylaxis once INR becomes sub- therapeutic. Antibiotics per infectious disease. Encourage smoking cessation, offloading of left foot. Medical management of other comorbid conditions per primary care service. More recommendations to follow. Thank you Dr. García for this consultation. We look forward to working with you in the care of your patient. Time with Patient: Greater than 30
[2018-07-06] MEDS ORDERED: WARFARIN 0.5 MG TAB PO ONE (18:00)
[2018-07-06] MEDS: diphenhydrAMINE 25 MG CAP PO PRN (19:15)
[2018-07-06] MEDS: FAMOTIDINE 20 MG/2 ML VIAL IV SCH (20:56)
[2018-07-06] MEDS ORDERED: WARFARIN 5 MG TAB PO SCH (21:00)
--- NOTE | 2018-07-06 21:59 | P.CONS ---
History of Present Illness - Reason for Consult Consult date: 07/06/18 Left foot infection cellulitis Requesting physician: Stewart Benson Sheet - Chief Complaint Pain left foot and discoloration big toe 2 weeks - History of Present Illness Patient is a 63 year male with a past medical history significant for peripheral arterial disease this patient who did have a left big toe partial amputation and previous history of vascular bypass apparently the patient did develop a blister on his left big toe that is open up and leading to ulceration formation and subsequently black discoloration that has been going on for the last 2 weeks patient denies any history of any trauma however the patient believes that shoes that has been provided to him may have caused a blister and subsequent ulceration, patient pain to the left big toe is throbbing 6-7 out of 10 and no radiation with surrounding redness and some foul-smelling denies significant drainage with these symptoms the patient presented to the [facility] ER patient did have x-rays of the left foot with evidence of osteomyelitis involving the left big and third toe patient has been admitted to the hospital he was started on Zosyn and vancomycin and infectious disease was consulted for further recommendation regarding antibiotic therapy Review of Systems CONSTITUTIONAL: Positive for weakness. Denies high-grade Fever EYES: No complaint. ENT:No complaint. RESPIRATORY: Shortness of breath and cough CARDIOVASCULAR: No complaint. GENITOURINARY: No complaint. GASTROINTESTINAL: No complaint. MUSCULOSKELETAL: As per history of present illness INTEGUMENTARY: As per history of present PSYCHOLOGICAL: No complaint. ENDOCRINE: No complaint. NEUROLOGIC: No complaint. Past Medical History Past Medical History: COPD, Deep Vein Thrombosis (DVT), GERD/Reflux, Hearing Disorder / Deafness, Osteoarthritis (OA), Pneumonia, Vascular Disorder Additional Past Medical History / Comment(s): CHRONIC BRONCHITIS.stated has been using 02 3 liters n/c past few weeks. DVT of the right lower extremity in 2007 , peripheral vascular disease, past wound bottom rt foot. History of Any Multi-Drug Resistant Organisms: MRSA Year Discovered:: 2007 MDRO Source:: NECK Past Surgical History: Hernia Repair, Orthopedic Surgery Additional Past Surgical History / Comment(s): Bilateral femoral bypass surgery, arthroscopic left knee surgery, bilateral inguinal hernia repair, partial left great toe excision/amputation . Past Anesthesia/Blood Transfusion Reactions: No Reported Reaction Past Psychological History: Anxiety Additional Psychological History / Comment(s): pt indepedant. 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 Smoking Status: Current every day smoker Past Alcohol Use History: None Reported Additional Past Alcohol Use History / Comment(s): smoker since age 18 (1973), 1 PPD Past Drug Use History: Marijuana Additional Drug Use History / Comment(s): occ use but none in 5-6 months - Past Family History Brother(s) Family Medical History: Coronary Artery Disease (CAD) Additional Family Medical History / Comment(s): heart attack/cabg Father Family Medical History: No Reported History Mother Family Medical History: Deep Vein Thrombosis (DVT) Medications and Allergies Home Medications Medication Instructions Recorded Confirmed Type Metoprolol Tartrate 25 mg PO DAILY 12/15/14 07/05/18 History Warfarin [Coumadin] 5 mg PO HS 09/21/15 07/05/18 History Albuterol Nebulized [Ventolin 2.5 mg INHALATION RT-QID PRN #120 05/21/16 07/05/18 Rx Nebulized] nebu Probenecid/Colchicine 1 tab PO BID 07/05/18 07/05/18 History [Probenecid-Colchicine Tabs] Allergies Allergy/AdvReac Type Severity Reaction Status Date / Time hydromorphone [From Dilaudid] AdvReac Hallucinati Verified 07/05/18 17:59 ons Physical Exam Vitals: Vital Signs Temp Pulse Pulse Pulse Resp BP BP 07/06/18 07:00 97.5 F L 71 16 07/06/18 01:30 98.3 F 69 20 105/70 07/05/18 19:20 98.6 F 80 16 07/05/18 17:51 98.5 F 79 15 134/78 07/05/18 17:24 97.9 F 77 18 130/76 07/05/18 15:43 75 18 109/77 07/05/18 13:38 97.7 F 93 18 126/68 BP Pulse Ox 07/06/18 07:00 117/76 94 L 07/06/18 01:30 96 07/05/18 19:20 127/78 95 07/05/18 17:51 96 07/05/18 17:24 97 07/05/18 15:43 100 07/05/18 13:38 98 Intake and Output 07/05/18 07/06/18 07/06/18 22:59 06:59 14:59 Intake Total 118 Balance 118 Intake: Oral 118 Other: # Voids 1 2 GENERAL DESCRIPTION: Middle-aged male lying in bed, no distress. No tachypnea or accessory muscle of respiration use. HEENT: Shows Pallor , no scleral icterus. Oral mucous membrane is dry. No pharyngeal erythema or thrush NECK: Trachea central, no thyromegaly. LUNGS: Unlabored breathing. Clear to auscultation anteriorly. No wheeze or crackle. HEART: S1, S2, regular rate and rhythm. No loud murmur ABDOMEN: Soft, no tenderness , guarding or rigidity, no organomegaly EXTREMITIES: No edema of feet. Left big toe necrotic black discoloration with s ome surrounding redness minimal foul-smelling drainage did have a black discoloration of the third toe on a significant redness or drainage SKIN: No rash, no masses palpable. NEUROLOGICAL: The patient is awake, alert, oriented x3, mood and affect normal. Results CBC & Chem 7: 07/05/18 14:29 07/05/18 14:29 Labs: Abnormal Lab Results - Last 24 Hours (Table) 07/05/18 07/05/18 07/06/18 Range/Units 14:29 14:29 07:16 PT 34.3 H 30.4 H (9.0-12.0) sec INR 3.6 H 3.2 H (<1.2) APTT 54.2 H (22.0-30.0) sec Potassium 3.4 L (3.5-5.1) mmol/L BUN 8 L (9-20) mg/dL ALT 17 L (21-72) U/L C-Reactive Protein 72.6 H (<10.0) mg/L Assessment and Plan Assessment: 1-patient admitted hospital with left big toe gangrene in this patient did have a history of peripheral arterial disease with evidence of secondary cellulitis and previous history of left big toe partial amputation will need to cover for the gram-positive as well as gram-negative bacteria at this patient has been in the hospital 2-patient will need assessment of his left lower extremity circulation before planned for amputation of the left big and possible third toe (1) Cellulitis of left foot Current Visit: Yes Status: Acute Code(s): L03.116 - CELLULITIS OF LEFT LOWER LIMB SNOMED Code(s): 039330492 (2) Gangrenous toe Current Visit: Yes Status: Acute Code(s): I96 - GANGRENE, NOT ELSEWHERE CLASSIFIED SNOMED Code(s): 214821305 Plan: 1-vancomycin pharmacy to dose target trough of 15 for worsening Vanco trough and kidney function closely 2-discontinue the Zosyn and start the patient cefepime 2 g every 12 to cover for gram-negative and to decrease the risk of nephrotoxicity 3-dry dressings to the left big toe to keep the area dry and off pressure We will follow-up on his clinical condition and cultures to further adjust medication if needed Thank you for this consultation will follow this patient along with you Time with Patient: Greater than 30
[2018-07-07] MEDS: VANCOMYCIN 1,500 MG in SODIUM CHLORIDE 0.9% 250 ML IVPB SCH ×3 (00:58→15:38)
[2018-07-07] MEDS: SODIUM CHLORIDE 0.9% 1,000 ML IV SCH ×2 (00:58→11:37)
[2018-07-07] MEDS: MORPHINE SULFATE 4 MG/ML SYRINGE IVP PRN ×6 (00:59→20:00)
[2018-07-07] MEDS ORDERED: VANCOMYCIN TROUGH DUE 1 EACH MISC MISCELLANE ONE ×2 (07:00→15:00)
[2018-07-07 07:20] LABS: Basophils # (A) 0.1 k/uL (0-0.2); Basophils % (A) 1 %; Eosinophils # (A) 0.3 k/uL (0-0.7); Eosinophils % (A) 3 %; HCT 45.7 % (39.0-53.0); HGB 14.7 gm/dL (13.0-17.5); Lymphocytes # (A) 1.4 k/uL (1.0-4.8); Lymphocytes % (A) 14 %; MCHC 32.3 g/dL (31.0-37.0); MCV 86.6 fL (80.0-100.0); Mean Platelet Volume 7.1; Monocytes # (A) 0.7 k/uL (0-1.0); Monocytes % (A) 7 %; Neutrophils # (A) 7.6 k/uL (1.3-7.7); Neutrophils % (A) 74 %; Platelet Count 268 k/uL (150-450); RBC 5.27 m/uL (4.30-5.90); RDW 14.6 % (11.5-15.5); WBC 10.2 k/uL (3.8-10.6)
[2018-07-07 07:29] LABS: INR 2.8 (<1.2); Prothrombin Time 26.9 sec (9.0-12.0)
[2018-07-07 07:50] LABS: Anion Gap 6 mmol/L; Blood Urea Nitrogen 8 mg/dL (9-20); Calcium 8.1 mg/dL (8.4-10.2); Carbon Dioxide 34 mmol/L (22-30); Chloride 99 mmol/L (98-107); Glucose 78 mg/dL (74-99); Potassium 4.2 mmol/L (3.5-5.1); Sodium 139 mmol/L (137-145)
[2018-07-07] MEDS: CEFEPIME 2 GM in SODIUM CHLORIDE 0.9% 100 ML IVPB SCH ×2 (08:23→20:00)
[2018-07-07] MEDS: NICOTINE 21MG/24HR PATCH TRANSDERM SCH (08:24)
[2018-07-07] MEDS: METOPROLOL TARTRATE 25 MG TAB PO SCH (08:24)
[2018-07-07] MEDS: FAMOTIDINE 20 MG/2 ML VIAL IV SCH (08:24)
[2018-07-07] MEDS: COLCHICIN-PROBENECID 0.5-500MG 1 EACH TAB PO SCH ×2 (08:24→20:40)
--- NOTE | 2018-07-07 10:21 | P.GSCN ---
History of Present Illness Consult date: 07/07/18 Reason for Consult: left great toe gangrene and vascular disease Requesting physician: Lisa Robertson History of present illness: 63 year old gentleman with history of PAD, left femoral-below knee bypass, with left great toe wounds which he has seen wound care for in the past presented to the hospital secondary to left great toe wound that has been worsening over the last several weeks states she called wound care center and was unable to get to be seen in a short period of time and therefore came to the hospital. He states the wound started out as an ulcer and has slowly progressed and gotten darker and darker which it is now black and has some malodor. He denies any fevers, chills, chest pain or shortness of breath. He has had wounds in this area before which were treated and subsequently healed. He denies any significant pain with ambulation in the calf sore in his thighs. He does state that he has been ambulating on the lateral aspects of his foot and therefore which is causing some pain. Arterial Doppler done in the hospital demonstrates ANITA of 0.73 on the left with good appearing waveforms down to his feet with out any evidence of wave form in his great toe. He is also taking Coumadin for history of DVTs and upon admission his INR was 3.2. Review of Systems All systems: negative - Musculoskeletal Reports leg numbness/tingling Past Medical History Past Medical History: COPD, Deep Vein Thrombosis (DVT), GERD/Reflux, Hearing Disorder / Deafness, Osteoarthritis (OA), Pneumonia, Vascular Disorder Additional Past Medical History / Comment(s): CHRONIC BRONCHITIS.stated has been using 02 3 liters n/c past few weeks. DVT of the right lower extremity in 2007 , peripheral vascular disease, past wound bottom rt foot. History of Any Multi-Drug Resistant Organisms: MRSA Year Discovered:: 2007 MDRO Source:: NECK Past Surgical History: Hernia Repair, Orthopedic Surgery Additional Past Surgical History / Comment(s): Bilateral femoral bypass surgery, arthroscopic left knee surgery, bilateral inguinal hernia repair, partial left great toe excision/amputation . Past Anesthesia/Blood Transfusion Reactions: No Reported Reaction Past Psychological History: Anxiety Additional Psychological History / Comment(s): pt indepedant. 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 Smoking Status: Current every day smoker Past Alcohol Use History: None Reported Additional Past Alcohol Use History / Comment(s): smoker since age 18 (1973), 1 PPD Past Drug Use History: Marijuana Additional Drug Use History / Comment(s): occ use but none in 5-6 months - Past Family History Brother(s) Family Medical History: Coronary Artery Disease (CAD) Additional Family Medical History / Comment(s): heart attack/cabg Father Family Medical History: No Reported History Mother Family Medical History: Deep Vein Thrombosis (DVT) Medications and Allergies Home Medications Medication Instructions Recorded Confirmed Type Metoprolol Tartrate 25 mg PO DAILY 12/15/14 07/05/18 History Warfarin [Coumadin] 5 mg PO HS 09/21/15 07/05/18 History Albuterol Nebulized [Ventolin 2.5 mg INHALATION RT-QID PRN #120 05/21/16 07/05/18 Rx Nebulized] nebu Probenecid/Colchicine 1 tab PO BID 07/05/18 07/05/18 History [Probenecid-Colchicine Tabs] Allergies Allergy/AdvReac Type Severity Reaction Status Date / Time hydromorphone [From Dilaudid] AdvReac Hallucinati Verified 07/05/18 17:59 ons Surgical - Exam Vital Signs Temp Pulse Resp BP Pulse Ox 97.7 F 93 18 126/68 98 07/05/18 13:38 07/05/18 13:38 07/05/18 13:38 07/05/18 13:38 07/05/18 13:38 Left great toe with eschar and malodor. There is paleness noted around the base of the wound indicating some ischemia. The rest the foot is warm with good capillary refill. Nonpalpable DP or PT pulse in the left foot. There is palpable pulse in the popliteal at the bypass site. - General well developed, well nourished - Eyes PERRL, normal ocular movement - ENT normal pinna, normal nares - Neck no masses, no bruits - Respiratory normal expansion, normal respiratory effort - Cardiovascular Rhythm: regular - Abdomen Abdomen: soft, non tender - Neurologic normal coordination, no normal sensation - Psychiatric oriented to time, oriented to person, oriented to place Results - Labs 07/07/18 07:05 07/07/18 07:05 Abnormal Lab Results - Last 24 Hours (Table) 07/07/18 07/07/18 Range/Units 07:05 07:05 PT 26.9 H (9.0-12.0) sec INR 2.8 H (<1.2) Carbon Dioxide 34 H (22-30) mmol/L BUN 8 L (9-20) mg/dL Calcium 8.1 L (8.4-10.2) mg/dL Microbiology - Last 24 Hours (Table) 07/05/18 14:29 Blood Culture - Preliminary Blood No Growth after 24 hours Diabetes panel 07/07/18 Range/Units 07:05 Sodium 139 (137-145) mmol/L Potassium 4.2 (3.5-5.1) mmol/L Chloride 99 (98-107) mmol/L Carbon Dioxide 34 H (22-30) mmol/L BUN 8 L (9-20) mg/dL Creatinine 0.91 (0.66-1.25) mg/dL Glucose 78 (74-99) mg/dL Calcium 8.1 L (8.4-10.2) mg/dL Calcium panel 07/07/18 Range/Units 07:05 Calcium 8.1 L (8.4-10.2) mg/dL Pituitary panel 07/07/18 Range/Units 07:05 Sodium 139 (137-145) mmol/L Potassium 4.2 (3.5-5.1) mmol/L Chloride 99 (98-107) mmol/L Carbon Dioxide 34 H (22-30) mmol/L BUN 8 L (9-20) mg/dL Creatinine 0.91 (0.66-1.25) mg/dL Glucose 78 (74-99) mg/dL Calcium 8.1 L (8.4-10.2) mg/dL Adrenal panel 07/07/18 Range/Units 07:05 Sodium 139 (137-145) mmol/L Potassium 4.2 (3.5-5.1) mmol/L Chloride 99 (98-107) mmol/L Carbon Dioxide 34 H (22-30) mmol/L BUN 8 L (9-20) mg/dL Creatinine 0.91 (0.66-1.25) mg/dL Glucose 78 (74-99) mg/dL Calcium 8.1 L (8.4-10.2) mg/dL Assessment and Plan Assessment: 1. Left great toe gangrene 2. Left great toe osteomyelitis 3. Peripheral arterial disease with history of left femoral to below-knee artery bypass. 4. History of lower extremity DVT currently on Coumadin 5. Current tobacco and marijuana dependence Plan: Reviewed lower extremity arterial Doppler with the patient in full detail. Recommend angiogram with left lower extremity runoff to further evaluate below- knee arteries and flow to the foot. Discussed need for amputation of the great toe which will be done as soon as his INR is 2.0 or below. We will tentatively schedule for angiogram Friday and amputation later this week. Thank you for allowing me to participate in your patient's care. Please call me if there are any questions or concerns. Time with Patient: Greater than 30
[2018-07-07] MEDS: diphenhydrAMINE 25 MG CAP PO PRN (12:47)
--- NOTE | 2018-07-07 14:50 | P.PN ---
Subjective This is a pleasant 63 years old male with past medical history of COPD, DVT and anticoagulation, GERD, hearing difficulty, osteoarthritis. He presents because of infection and gangrene Of the left foot over the first and second toes. His been afebrile, MRSA vitals are stable. INR 3.2, CBC and BMP were unremarkable with no leukocytosis. 07/07/2018 Patient denies chest pain or dyspnea. He still have the problem is in his left food. Patient is hemodynamically stable. Creatinine is 0.9, Coumadin is 2.8. Patient remains on antibiotics as per infectious disease recommendation with vancomycin and cefepime. Surgery team evaluating the patient's with lower extremity Doppler. Plan for amputation and surgical intervention later on this week. His INR has to come down. His Coumadin is on hold. Objective - Vital Signs Vital signs: Vital Signs Temp 97.5 F L 07/07/18 11:50 Pulse 71 07/07/18 11:50 Resp 16 07/07/18 11:50 BP 104/67 07/07/18 11:50 Pulse Ox 94 L 07/07/18 11:50 Intake & Output 07/06/18 07/07/18 07/07/18 18:59 06:59 18:59 Intake Total 518 Balance 518 Intake: Oral 518 Other: # Voids 2 1 # Bowel Movements 0 - Exam GENERAL: The patient is alert and oriented x3, not in any acute distress. Well developed, well nourished. HEENT: Pupils are round and equally reacting to light. EOMI. No scleral icterus. No conjunctival pallor. Normocephalic, atraumatic. No pharyngeal erythema. No thyromegaly. CARDIOVASCULAR: S1 and S2 present. No murmurs, rubs, or gallops. PULMONARY: Chest is clear to auscultation, no wheezing or crackles. ABDOMEN: Soft, nontender, nondistended, normoactive bowel sounds. No palpable organomegaly. -MUSCULOSKELETAL: No joint swelling or deformity. Cellulitis of the left first and second and third toes. gangerene of the left first toe and the tips of seconds and third toes EXTREMITIES: No cyanosis, clubbing, or pedal edema. NEUROLOGICAL: Gross neurological examination did not reveal any focal deficits. SKIN: No rashes. - Labs CBC & Chem 7: 07/07/18 07:05 07/07/18 07:05 Labs: Abnormal Lab Results - Last 24 Hours (Table) 07/07/18 07/07/18 Range/Units 07:05 07:05 PT 26.9 H (9.0-12.0) sec INR 2.8 H (<1.2) Carbon Dioxide 34 H (22-30) mmol/L BUN 8 L (9-20) mg/dL Calcium 8.1 L (8.4-10.2) mg/dL Microbiology - Last 24 Hours (Table) 07/05/18 14:29 Blood Culture - Preliminary Blood No Growth after 24 hours Assessment and Plan Assessment: Cellulitis of the left first and second and third toes gangerene of the left first toe and the tips of seconds and third toes Osteomyelitis of first and second toes Supratherapeutic INR Current smoker, nicotine dependence History of DVT on anticoagulation History of COPD History of GERD Hearing difficulty History of osteoarthritis Plan: This is a pleasant 63 years old male who presents with cellulitis of the first and second toes, infectious disease consult , vascular surgery consult, continue with antibiotic as per ID team recommendation , follow up culture results. Continue with IV fluids. Labs and medication were reviewed.. Continue same treatment. Continue with symptomatic treatment. Resume home medication. Monitor lytes and vitals. DVT and GI prophylaxis. Further recommendations depends on the clinical course of the patient DVT prophylaxis: on coumadin GI Prophylaxis: Pepcid Prognosis is guarded
[2018-07-07] MEDS ORDERED: WARFARIN 5 MG TAB PO ONE (18:00)
[2018-07-07] MEDS: FAMOTIDINE 20 MG TAB PO SCH (19:59)
[2018-07-08] MEDS: MORPHINE SULFATE 4 MG/ML SYRINGE IVP PRN ×6 (00:01→20:34)
--- NOTE | 2018-07-08 00:03 | PN ---
PROGRESS NOTE DATE OF SERVICE: 07/07/2018 REASON FOR FOLLOWUP: Left big toe gangrene with secondary cellulitis. INTERVAL HISTORY: The patient is currently afebrile. He is breathing comfortably. Denies having any chest pain, shortness of breath or cough. No abdominal pain or any worsening pain to the left big toe/foot area. PHYSICAL EXAMINATION: Blood pressure 108/66 with a pulse of 79, temperature 99.2. He is 92% on room air. General description is a middle-aged male lying in bed in no distress. RESPIRATORY SYSTEM: Unlabored breathing. Clear to auscultation anteriorly. HEART: S1, S2. Regular rate and rhythm. ABDOMEN: Soft. No tenderness. Left big toe remains necrotic. Redness has slightly increased. No drainage. LABS: White count is 10.2, hemoglobin 7, BUN of 8, creatinine 0.91. White count is slightly elevated. Blood pressure has been negative. DIAGNOSTIC IMPRESSION AND PLAN: Patient with left big toe gangrene with cellulitis. Awaiting an angiogram per Vascular Surgery followed by possible amputation. Currently covered with vancomycin cefepime; to continue vancomycin also need to be adjusted down to keep the trough under 15. I discussed with the pharmacy. Continue with support care. MMODL / IJN: [id number] /
[2018-07-08] MEDS: SODIUM CHLORIDE 0.9% 1,000 ML IV SCH ×2 (03:30→17:09)
[2018-07-08 08:18] LABS: Basophils % (A) 0 %; Eosinophils # (A) 0.4 k/uL (0-0.7); Eosinophils % (A) 4 %; HCT 44.1 % (39.0-53.0); Lymphocytes # (A) 1.5 k/uL (1.0-4.8); Lymphocytes % (A) 16 %; MCH 27.5 pg (25.0-35.0); MCHC 31.7 g/dL (31.0-37.0); Mean Platelet Volume 7.3; Monocytes # (A) 0.7 k/uL (0-1.0); Monocytes % (A) 7 %; Neutrophils % (A) 72 %; Platelet Count 260 k/uL (150-450); RBC 5.07 m/uL (4.30-5.90); RDW 14.7 % (11.5-15.5); WBC 9.8 k/uL (3.8-10.6)
[2018-07-08] MEDS: NICOTINE 21MG/24HR PATCH TRANSDERM SCH (08:19)
[2018-07-08] MEDS: METOPROLOL TARTRATE 25 MG TAB PO SCH (08:19)
[2018-07-08] MEDS: FAMOTIDINE 20 MG TAB PO SCH ×2 (08:19→20:34)
[2018-07-08] MEDS: COLCHICIN-PROBENECID 0.5-500MG 1 EACH TAB PO SCH ×2 (08:19→20:34)
[2018-07-08] MEDS: CEFEPIME 2 GM in SODIUM CHLORIDE 0.9% 100 ML IVPB SCH ×2 (08:20→19:59)
[2018-07-08] MEDS: VANCOMYCIN 1,500 MG in SODIUM CHLORIDE 0.9% 250 ML IVPB SCH ×4 (08:20→20:54)
[2018-07-08 08:30] LABS: Prothrombin Time 19.8 sec (9.0-12.0)
[2018-07-08 08:33] LABS: Anion Gap 4 mmol/L; Blood Urea Nitrogen 7 mg/dL (9-20); Carbon Dioxide 35 mmol/L (22-30); Chloride 100 mmol/L (98-107); Glucose 85 mg/dL (74-99); Potassium 3.7 mmol/L (3.5-5.1); Sodium 139 mmol/L (137-145)
[2018-07-08] MEDS: diphenhydrAMINE 25 MG CAP PO PRN ×2 (09:20→17:08)
--- NOTE | 2018-07-08 13:09 | P.PN ---
Subjective This is a pleasant 63 years old male with past medical history of COPD, DVT and anticoagulation, GERD, hearing difficulty, osteoarthritis. He presents because of infection and gangrene Of the left foot over the first and second toes. His been afebrile, MRSA vitals are stable. INR 3.2, CBC and BMP were unremarkable with no leukocytosis. 07/07/2018 Patient denies chest pain or dyspnea. He still have the problem is in his left food. Patient is hemodynamically stable. Creatinine is 0.9, Coumadin is 2.8. Patient remains on antibiotics as per infectious disease recommendation with vancomycin and cefepime. Surgery team evaluating the patient's with lower extremity Doppler. Plan for amputation and surgical intervention later on this week. His INR has to come down. His Coumadin is on hold. 07/08/2018 Patient clinically the same. No chest pain or dyspnea. I have infection and gangrene in his right foot, remains on antibiotics as per ID team recommendation. Surgical team are following the patient closely and they plan for surgery once his INR improves. His current INR is 2.0. Coumadin is on hold. Objective - Vital Signs Vital signs: Vital Signs Temp 98.1 F 07/08/18 13:04 Pulse 63 07/08/18 13:04 Resp 18 07/08/18 13:04 BP 143/82 07/08/18 13:04 Pulse Ox 95 07/08/18 13:04 Intake & Output 07/07/18 07/08/18 07/08/18 18:59 06:59 18:59 Intake Total 600 950 Balance 600 950 Intake: IV 950 Cefepime 2 gm In Sodium 100 Chloride 0.9% 100 ml @ 200 mls/hr IVPB Q12HR [facility] Rx#:[id number] Sodium Chloride 0.9% 1, 600 000 ml @ 75 mls/hr IV . [id number] [facility] Rx#:[id number] Vancomycin 1,500 mg In 250 Sodium Chloride 0.9% 250 ml @ 125 mls/hr IVPB Q12HR [facility] Rx#:[id number] Oral 600 Other: # Voids 3 2 - Exam GENERAL: The patient is alert and oriented x3, not in any acute distress. Well developed, well nourished. HEENT: Pupils are round and equally reacting to light. EOMI. No scleral icterus. No conjunctival pallor. Normocephalic, atraumatic. No pharyngeal erythema. No thyromegaly. CARDIOVASCULAR: S1 and S2 present. No murmurs, rubs, or gallops. PULMONARY: Chest is clear to auscultation, no wheezing or crackles. ABDOMEN: Soft, nontender, nondistended, normoactive bowel sounds. No palpable organomegaly. -MUSCULOSKELETAL: No joint swelling or deformity. Cellulitis of the left first and second and third toes. gangerene of the left first toe and the tips of seconds and third toes EXTREMITIES: No cyanosis, clubbing, or pedal edema. NEUROLOGICAL: Gross neurological examination did not reveal any focal deficits. SKIN: No rashes. - Labs CBC & Chem 7: 07/08/18 07:57 07/08/18 07:57 Labs: Abnormal Lab Results - Last 24 Hours (Table) 07/08/18 07/08/18 Range/Units 07:57 07:57 PT 19.8 H (9.0-12.0) sec INR 2.0 H (<1.2) Carbon Dioxide 35 H (22-30) mmol/L BUN 7 L (9-20) mg/dL Calcium 8.0 L (8.4-10.2) mg/dL Microbiology - Last 24 Hours (Table) 07/05/18 14:29 Blood Culture - Preliminary Blood No Growth after 48 hours Assessment and Plan Assessment: Cellulitis of the left first and second and third toes gangerene of the left first toe and the tips of seconds and third toes Osteomyelitis of first and second toes Supratherapeutic INR Current smoker, nicotine dependence History of DVT on anticoagulation History of COPD History of GERD Hearing difficulty History of osteoarthritis Plan: This is a pleasant 63 years old male who presents with cellulitis of the first and second toes, infectious disease consult , vascular surgery consult, continue with antibiotic as per ID team recommendation , follow up culture results. Continue with IV fluids. Labs and medication were reviewed.. Continue same treatment. Continue with symptomatic treatment. Resume home medication. Monitor lytes and vitals. DVT and GI prophylaxis. Further recommendations depends on the clinical course of the patient DVT prophylaxis: on coumadin GI Prophylaxis: Pepcid Prognosis is guarded
--- NOTE | 2018-07-08 13:23 | PN ---
PROGRESS NOTE DATE OF SERVICE: 07/08/2018 REASON FOR FOLLOWUP: Left big toe gangrene with secondary cellulitis. INTERVAL HISTORY: The patient is currently afebrile. The patient is breathing comfortably. Denies having any chest pain or any cough. No abdominal pain and denies any worsening pain to the left foot area. PHYSICAL EXAMINATION: On examination, blood pressure is 109/63 with a pulse of 79, temperature 99.4. He is 92% on room air. General appearance is a middle-aged male lying in bed in no distress. RESPIRATORY SYSTEM: Unlabored breathing, clear to auscultation anteriorly. HEART: S1, S2. Regular rate and rhythm. ABDOMEN: Soft. No tenderness. Left big toe remains to be necrotic. Surrounding redness slightly decreased. LABS: Hemoglobin is 14, white count is 9.8. BUN of 7, creatinine 0.99. DIAGNOSTIC IMPRESSION AND PLAN: Patient with left big toe and gangrene with secondary cellulitis. Patient is currently covered with cefepime and vancomycin, to continue. Await angiogram and possible . Continue supportive care. MMODL / IJN: [id number] /
[2018-07-09] MEDS: MORPHINE SULFATE 4 MG/ML SYRINGE IVP PRN ×5 (01:14→21:43)
[2018-07-09] MEDS: SODIUM CHLORIDE 0.9% 1,000 ML IV SCH ×4 (04:30→20:07)
[2018-07-09] MEDS ORDERED: ASPIRIN 325 MG TAB PO ONE (07:35)
[2018-07-09] MEDS ORDERED: fentaNYL (PF) 50 MCG/ML 2 ML AMP IV ONE (07:41)
[2018-07-09] MEDS ORDERED: MIDAZOLAM (PF) 2 MG/2 ML VIAL IVP ONE (07:41)
[2018-07-09] MEDS ORDERED: LIDOCAINE 1% INJ 10MG/ML (20 ML MDV) SQ ONE (07:43)
[2018-07-09] MEDS ORDERED: IV FLUID CONTINUATION 800 ML IV ONE (07:43)
[2018-07-09] MEDS ORDERED: IOPAMIDOL-250 100ML BTL INTRAARTER ONE (08:06)
[2018-07-09] MEDS: METOPROLOL TARTRATE 25 MG TAB PO SCH (08:43)
[2018-07-09] MEDS: COLCHICIN-PROBENECID 0.5-500MG 1 EACH TAB PO SCH ×2 (08:43→20:01)
[2018-07-09] MEDS: FAMOTIDINE 20 MG TAB PO SCH ×2 (08:44→20:00)
[2018-07-09] MEDS: CEFEPIME 2 GM in SODIUM CHLORIDE 0.9% 100 ML IVPB SCH ×2 (08:44→20:01)
--- NOTE | 2018-07-09 09:10 | P.OP ---
Date of Procedure: 07/09/18 Preoperative Diagnosis: #1: Gangrene left great toe. #2 left femoral occlusion status post left femoral to popliteal vein bypass graft. 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 #2 total occlusion left posterior tibial artery. #3 Approximately 2 cm occlusion left anterior tibial artery. #4 approximate 3 cm occlusion left peroneal artery Procedure(s) Performed: #1 cannulation right common femoral artery with placement of a 5-Romanian sheath. #2 catheter placement abdominal aorta. #3 abdominal aortogram/pelvic angiogram. #4 selective catheter placement left common femoral artery. #5 selective left femoral angiogram. Implants: None. Anesthesia: other (Local with IV sedation (50 g fentanyl and 2 mg Versed a dministered intravenously).) Surgeon: Terell Hawthorne Estimated Blood Loss (ml): 5 IV fluids (ml): 200 Pathology: none sent Condition: stable Disposition: floor Indications for Procedure: Patient is a 63-year-old male who presented with ischemic changes of his left great toe area the patient has a history of left femoral-popliteal bypass graft. Physical examination revealed femoral popliteal pulses while the tibial pulses are absent on the left. Arterial Doppler was performed which demonstrated moderate decrease in the ankle brachial index consistent with tibial artery occlusive disease. Patient is now offered angiography for further delineation of his vascular anatomy and possible endovascular repair. Operative Findings: Normally patent aortoiliac segment. Patent femoral-popliteal bypass graft. Tibial artery occlusive disease Description of Procedure: Patient was brought to special procedures suite. Patient was identified with confirmation of identity. Patient was placed on the angiogram table in the supine position. Both groins were sterilely prepped and draped in usual manner. 1% Xylocaine was utilized for local anesthesia of the tissues overlying the right femoral artery. Through this anesthetized area a micropuncture needle was utilized to cannulate the artery. Once cannulated Softip guidewire was advanced into the artery. The needle was withdrawn. The guidewire and dilator were withdrawn and a 0.035 inch braided J-tipped guidewire was advanced into the iliac artery. The catheter was withdrawn and a 5-Romanian sheath was then placed. Pigtail catheter and guidewire advanced into the abdominal aorta. The guidewire was withdrawn and the pigtail positioned at the L1-L2 interspace. Abdominal aortogram was then performed. Subsequently the catheter was manipulated across the aortic bifurcation. The guidewire is advanced down into the femoral artery and the catheter was positioned at the common femoral artery level. Left femoral angiogram was then performed. Once adequate films were obtained the catheter was withdrawn as was the sheath and pressure was held at the puncture site until all evidence of bleeding ceased. Findings: Abdominal aorta is normally patent. Single renal arteries are identified bilaterally. There is no evidence of renal artery stenosis. Mesenteric vessels as visualized were unremarkable. The right common, internal and external iliac arteries are essentially normal. No flow-limiting lesion is identified. The left common, internal and external iliac arteries are normally patent. No flow-limiting lesion is identified. Left femoral angiogram demonstrates the common and profundus femoris arteries to be normally patent. There is a vein bypass extending from the proximal superficial femoral artery down to the proximal portion of the popliteal artery. The bypass graft is widely patent with no significant stenosis identified. The left popliteal artery is unremarkable. Tibial angiography demonstrates total occlusion of the posterior tibial artery throughout its entire length. The anterior tibial artery is patent proximally. There is an approximately 2 cm occluded segment in the proximal one third of the artery. Distal to this occlusion the artery fills via collaterals and appears relatively normal and does extend onto the dorsum of the foot. The peroneal artery is patent proximally. There is approximately 3 cm total occlusion at it's mid calf level segment and distally appears normally patent. Total conscious sedation time 26 minutes. Total fluoroscopy time less than 4 minutes. Total contrast volume 70 cm of Isovue 370. Patient tolerated the procedure well and was returned to his room in satisfactory and stable condition. Plan is for atherectomy of the anterior tibial and peroneal arteries with amputation of the left great toe.
[2018-07-09 09:18] LABS: Basophils % (A) 0 %; Eosinophils # (A) 0.5 k/uL (0-0.7); Eosinophils % (A) 4 %; HCT 44.4 % (39.0-53.0); HGB 14.3 gm/dL (13.0-17.5); Lymphocytes # (A) 1.3 k/uL (1.0-4.8); Lymphocytes % (A) 12 %; MCH 27.6 pg (25.0-35.0); MCHC 32.1 g/dL (31.0-37.0); MCV 85.9 fL (80.0-100.0); Monocytes # (A) 0.7 k/uL (0-1.0); Monocytes % (A) 6 %; Neutrophils # (A) 8.6 k/uL (1.3-7.7); Neutrophils % (A) 76 %; Platelet Count 278 k/uL (150-450); RBC 5.17 m/uL (4.30-5.90); WBC 11.3 k/uL (3.8-10.6)
[2018-07-09 09:22] LABS: INR 1.6 (<1.2); Prothrombin Time 15.6 sec (9.0-12.0)
[2018-07-09 09:31] LABS: Anion Gap 5 mmol/L; Blood Urea Nitrogen 7 mg/dL (9-20); Calcium 8.4 mg/dL (8.4-10.2); Carbon Dioxide 31 mmol/L (22-30); Chloride 102 mmol/L (98-107); Glucose 92 mg/dL (74-99); Potassium 3.8 mmol/L (3.5-5.1); Sodium 138 mmol/L (137-145)
[2018-07-09] MEDS: VANCOMYCIN 1,500 MG in SODIUM CHLORIDE 0.9% 250 ML IVPB SCH ×2 (10:04→22:46)
--- NOTE | 2018-07-09 10:28 | IR ---
Fluoroscopy HISTORY: Nonhealing foot wound 2.7 minutes fluoroscopy time supplied to the referring clinician. 89 intraoperative C-arm images doc ument the procedure. See dictated report from vascular surgery.
--- NOTE | 2018-07-09 12:24 | CONS ---
CONSULTATION CHIEF COMPLAINT: Preop cardiac evaluation. This is a 63-year-old gentleman with history of extensive peripheral vascular disease, who is admitted to the hospital with gangrene involving left great toe. Cardiology had been consulted for preop cardiac evaluation. He underwent an angiogram and is to undergo atherectomy of the left superficial femoral artery and subsequently he is going to have amputation of his toes tomorrow. From cardiac standpoint, there is no prior cardiac history. There is no history of coronary artery disease or congestive heart failure. He denied chest pain, shortness of breath, or leg edema. Patient has had prior amputation of the right foot, toes and also had a fem-fem bypass surgery. At the time of my evaluation this morning, he appears comfortable at rest and is free of symptoms. An EKG shows sinus rhythm, normal axis, normal intervals. PAST MEDICAL HISTORY: Past medical history is significant for peripheral vascular disease. CURRENT MEDICATIONS: Current medications include colchicine, Coumadin, metoprolol, and albuterol. ALLERGIES: Allergic to DILAUDID. FAMILY HISTORY: Family history is negative for premature coronary artery disease. SOCIAL HISTORY: Social history is significant for smoking and marijuana use. Denies other drug abuse. REVIEW OF SYSTEMS: HEENT is unremarkable. CARDIAC: As described above. RESPIRATORY: As described above. GI: Negative. GENITOURINARY: Negative. ALLERGY/IMMUNOLOGY: Negative. SKIN: Negative. MUSCULOSKELETAL: Significant for gangrene of the toes. Rest of the system review is not relevant. PHYSICAL EXAMINATION: On exam, comfortable at rest. Vital signs are stable. There is no jugular venous distention. Carotid upstroke is diminished. There is no bruit. Chest exam reveals good air entry bilaterally. Heart exam reveals first and second heart sounds. No gallop. No murmur. Abdomen is soft. Examination of extremities reveals diminished pulses over the right foot and absent pulses over the left foot and gangrene involving the toes. LABS: Labs show that the hemoglobin is 14.3. INR is 1.6. Potassium is 3.8. Creatinine is 0.9. EKG is normal. An echocardiogram, which is a technically suboptimal study on preliminary evaluation, shows preserved LV function. ASSESSMENT: 1. Preop cardiac evaluation. 2. Peripheral vascular disease. PLAN: I do not see any contraindications for surgery under anesthesia at this time. After his peripheral vascular issues have been addressed, we might consider doing a Lexiscan on him to rule out significant obstructive CAD given the significant frequency with which coronary artery disease occurs in patients with PAD. Thank you for giving me the privilege to participate in the care of this pleasant gentleman. LAZ / MIREILLE: [id number] /
--- NOTE | 2018-07-09 13:19 | ECHOF ---
Referral Reason:preop clearance MEASUREMENTS -------- HEIGHT: 180.3 cm WEIGHT: 89.8 kg BP: RVIDd: 3.5 cm (< 3.3) IVSd: 1.0 cm (0.6 - 1.1) LVIDd: 4.6 cm (3.9 - 5.3) LVPWd: 1.3 cm (0.6 - 1.1) IVSs: 1.5 cm LVIDs: 1.8 cm LVPWs: 1.7 cm Ao Diam: 3.3 cm (2.0 - 3.7) AV Cusp: 1.8 cm (1.5 - 2.6) LA Diam: 3.2 cm (2.7 - 3.8) MV E Humberto: 0.34 m/s MV DecT: 306 ms MV A Humberto: 0.28 m/s MV E/A Ratio: 1.22 FINDINGS -------- Sinus rhythm. This was a technically difficult study with suboptimal views. Study taken from [facility] due to c opd. The left ventricular size is normal. There is mild concentric left ventricular hypertrophy. Overa ll left ventricular systolic function is normal with, an EF between 55 - 60 %. The right ventricle is mildly enlarged. The left atrial size is normal. The right atrial size is normal. The aortic valve is trileaflet and appears structurally normal. There is trace mitral regurgitation. Trace tricuspid regurgitation present. The right ventricular systolic pressure, as measured by Dopp ler, is {RVSP}. There is no pulmonic regurgitation present. The aortic root size is normal. Normal inferior vena cava with normal inspiratory collapse consistent with estimated right atrial pre ssure of 5 mmHg. There is no pericardial effusion. CONCLUSIONS -------- 1. Sinus rhythm. 2. This was a technically difficult study with suboptimal views. 3. Study taken from [facility] due to copd. 4. The left ventricular size is normal. 5. There is mild concentric left ventricular hypertrophy. 6. Overall left ventricular systolic function is normal with, an EF between 55 - 60 %. 7. The right ventricle is mildly enlarged. 8. The left atrial size is normal. 9. The right atrial size is normal. 10. The aortic valve is trileaflet and appears structurally normal. 11. There is trace mitral regurgitation. 12. Trace tricuspid regurgitation present. 13. The right ventricular systolic pressure, as measured by Doppler, is {RVSP}. 14. There is no pulmonic regurgitation present. 15. The aortic root size is normal. 16. Normal inferior vena cava with normal inspiratory collapse consistent with estimated right atrial pressure of 5 mmHg. 17. There is no pericardial effusion. [employer]: Lisa Crum RDCS
[2018-07-09] MEDS: NICOTINE 21MG/24HR PATCH TRANSDERM SCH (13:31)
[2018-07-09] MEDS: ASPIRIN 81 MG PO SCH ×2 (13:32→14:00)
--- NOTE | 2018-07-09 13:49 | P.PN ---
Subjective This is a pleasant 63 years old male with past medical history of COPD, DVT and anticoagulation, GERD, hearing difficulty, osteoarthritis. He presents because of infection and gangrene Of the left foot over the first and second toes. His been afebrile, MRSA vitals are stable. INR 3.2, CBC and BMP were unremarkable with no leukocytosis. 07/07/2018 Patient denies chest pain or dyspnea. He still have the problem is in his left food. Patient is hemodynamically stable. Creatinine is 0.9, Coumadin is 2.8. Patient remains on antibiotics as per infectious disease recommendation with vancomycin and cefepime. Surgery team evaluating the patient's with lower extremity Doppler. Plan for amputation and surgical intervention later on this week. His INR has to come down. His Coumadin is on hold. 07/08/2018 Patient clinically the same. No chest pain or dyspnea. I have infection and gangrene in his right foot, remains on antibiotics as per ID team recommendation. Surgical team are following the patient closely and they plan for surgery once his INR improves. His current INR is 2.0. Coumadin is on hold. 07/09/2018 Patient seen and examined in the extended stay unit today. Case was discussed with the surgical team today, he underwent angiogram of his lower extremity which showing total occlusion of the posterior tibial artery and 2 cm in the left anterior tibial artery. Plan for thrombectomy tomorrow plus surgical debr idement of his gangrenous toes and cellulitis. Pre-preop evaluation was done, he has history of smoking, but he never been hospitalized for lung disease as he told me before.. No chest pain. EKG done and we called cardiology team to help us regarding these, echocardiogram is ordered. Cardiology team recommended no contraindication for the procedure/surgery however patient might benefit from ou tpatient stress test. Patient is at high but acceptable risk for this high-risk procedure. Patient remains on antibiotics as per infectious disease recommendation. Objective - Vital Signs Vital signs: Vital Signs Temp 97.0 F L 07/09/18 11:05 Pulse 57 L 07/09/18 11:05 Resp 18 07/09/18 11:05 BP 116/66 07/09/18 11:05 Pulse Ox 94 L 07/09/18 11:05 Intake & Output 07/08/18 07/09/18 07/09/18 18:59 06:59 18:59 Intake Total 977 921 4619 Balance 003 239 5191 Intake: IV 950 1000 Cefepime 2 gm In Sodium 100 100 Chloride 0.9% 100 ml @ 200 mls/hr IVPB Q12HR [facility] Rx#:[id number] Sodium Chloride 0.9% 1, 600 600 000 ml @ 75 mls/hr IV . [id number] [facility] Rx#:[id number] Vancomycin 1,500 mg In 250 250 Sodium Chloride 0.9% 250 ml @ 125 mls/hr IVPB Q12HR [facility] Rx#:[id number] Oral 250 1340 Other: # Voids 1 # Bowel Movements 0 - Exam GENERAL: The patient is alert and oriented x3, not in any acute distress. Well developed, well nourished. HEENT: Pupils are round and equally reacting to light. EOMI. No scleral icterus. No conjunctival pallor. Normocephalic, atraumatic. No pharyngeal erythema. No thyromegaly. CARDIOVASCULAR: S1 and S2 present. No murmurs, rubs, or gallops. PULMONARY: Chest is clear to auscultation, no wheezing or crackles. ABDOMEN: Soft, nontender, nondistended, normoactive bowel sounds. No palpable organomegaly. -MUSCULOSKELETAL: No joint swelling or deformity. Cellulitis of the left first and second and third toes. gangerene of the left first toe and the tips of seconds and third toes EXTREMITIES: No cyanosis, clubbing, or pedal edema. NEUROLOGICAL: Gross neurological examination did not reveal any focal deficits. SKIN: No rashes. - Labs CBC & Chem 7: 07/09/18 08:55 07/09/18 08:55 Labs: Abnormal Lab Results - Last 24 Hours (Table) 07/09/18 07/09/18 07/09/18 Range/Units 08:55 08:55 08:55 WBC 11.3 H (3.8-10.6) k/uL Neutrophils # 8.6 H (1.3-7.7) k/uL PT 15.6 H (9.0-12.0) sec INR 1.6 H (<1.2) Carbon Dioxide 31 H (22-30) mmol/L BUN 7 L (9-20) mg/dL Microbiology - Last 24 Hours (Table) 07/05/18 14:29 Blood Culture - Preliminary Blood No Growth after 72 hours Assessment and Plan Assessment: Cellulitis of the left first and second and third toes gangerene of the left first toe and the tips of seconds and third toes Osteomyelitis of first and second toes 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 Current smoker, nicotine dependence History of DVT on anticoagulation History of COPD History of GERD Hearing difficulty History of osteoarthritis Plan: This is a pleasant 63 years old male who presents with cellulitis of the first and second toes, infectious disease consult , vascular surgery consult, continue with antibiotic as per ID team recommendation , follow up culture results. Continue with IV fluids. Cardiology evaluation. Labs and medication were reviewed.. Continue same treatment. Continue with symptomatic treatment. Resume home medication. Monitor lytes and vitals. DVT and GI prophylaxis. Further recommendations depends on the clinical course of the patient DVT prophylaxis: on coumadin GI Prophylaxis: Pepcid Prognosis is guarded
--- NOTE | 2018-07-09 14:14 | PN ---
PROGRESS NOTE DATE OF SERVICE: 07/09/2018 REASON FOR FOLLOWUP: Left big toe gangrene with secondary cellulitis. INTERVAL HISTORY: The patient is currently afebrile. The patient is breathing comfortably. Denies having any chest pain or any cough. No abdominal pain. Denies any worsening pain to the left foot area. PHYSICAL EXAMINATION: Blood pressure is 115/66 with pulse of 57, temperature 97, he is 94% on room air. General description is a middle-aged male, lying in bed in no distress. RESPIRATORY SYSTEM: Unlabored breathing, clear to auscultation anteriorly. HEART: S1, S2. Regular rate and rhythm. ABDOMEN: Soft, no tenderness. Left big toe with some necrosis with some minimal surrounding redness, no drainage. LABS: Hemoglobin is 14.8, white count 11.3, BUN of 7, creatinine 0.93. Blood culture has been negative. DIAGNOSTIC IMPRESSION AND PLAN: Patient with left big toe gangrene with secondary cellulitis. The patient is status post angiogram completed today with evidence of PAD. The patient is currently covered with vancomycin and to be continued. possible amputation tomorrow. Continue supportive care. MMODL / IJN: [id number] /
[2018-07-09] MEDS: ONDANSETRON 4 MG/2 ML VIAL IVP PRN (16:19)
[2018-07-09] MEDS: DOCUSATE 100 MG CAP PO SCH (20:00)
[2018-07-09] MEDS: ATORVASTATIN 20 MG TAB PO SCH (20:00)
[2018-07-09 20:39] LABS: Glucose,Whole Blood 116 mg/dL (75-99)
[2018-07-10] MEDS: MORPHINE SULFATE 4 MG/ML SYRINGE IVP PRN ×4 (01:21→22:06)
[2018-07-10] MEDS: SODIUM CHLORIDE 0.9% 1,000 ML IV SCH ×3 (04:17→16:32)
[2018-07-10 06:00] LABS: Glucose,Whole Blood 86 mg/dL (75-99)
[2018-07-10] MEDS: diphenhydrAMINE 25 MG CAP PO PRN (06:19)
[2018-07-10 07:25] LABS: Basophils % (A) 0 %; Eosinophils # (A) 0.4 k/uL (0-0.7); Eosinophils % (A) 5 %; HCT 45.1 % (39.0-53.0); HGB 14.5 gm/dL (13.0-17.5); Lymphocytes # (A) 1.4 k/uL (1.0-4.8); Lymphocytes % (A) 17 %; MCH 28.4 pg (25.0-35.0); MCHC 32.2 g/dL (31.0-37.0); MCV 88.1 fL (80.0-100.0); Mean Platelet Volume 7.7; Monocytes # (A) 0.7 k/uL (0-1.0); Monocytes % (A) 9 %; Neutrophils # (A) 5.4 k/uL (1.3-7.7); Neutrophils % (A) 67 %; Platelet Count 243 k/uL (150-450); RBC 5.12 m/uL (4.30-5.90); RDW 14.6 % (11.5-15.5); WBC 8.1 k/uL (3.8-10.6)
[2018-07-10 07:49] LABS: Anion Gap 4 mmol/L; Blood Urea Nitrogen 8 mg/dL (9-20); Calcium 8.4 mg/dL (8.4-10.2); Carbon Dioxide 37 mmol/L (22-30); Chloride 99 mmol/L (98-107); Glucose 70 mg/dL (74-99); Potassium 3.7 mmol/L (3.5-5.1); Sodium 140 mmol/L (137-145)
[2018-07-10] MEDS ORDERED: VANCOMYCIN TROUGH DUE 1 EACH MISC MISCELLANE ONE (08:00)
[2018-07-10] MEDS: ASPIRIN 81 MG PO SCH (09:05)
[2018-07-10] MEDS: FAMOTIDINE 20 MG TAB PO SCH ×2 (09:05→22:07)
[2018-07-10] MEDS: DOCUSATE 100 MG CAP PO SCH ×2 (09:05→22:08)
[2018-07-10] MEDS: METOPROLOL TARTRATE 25 MG TAB PO SCH (09:05)
[2018-07-10] MEDS: NICOTINE 21MG/24HR PATCH TRANSDERM SCH (09:06)
[2018-07-10] MEDS: CEFEPIME 2 GM in SODIUM CHLORIDE 0.9% 100 ML IVPB SCH (09:06)
[2018-07-10] MEDS: COLCHICIN-PROBENECID 0.5-500MG 1 EACH TAB PO SCH ×2 (09:09→22:09)
[2018-07-10] MEDS: VANCOMYCIN 1,500 MG in SODIUM CHLORIDE 0.9% 250 ML IVPB SCH ×2 (10:39→21:01)
[2018-07-10 10:51] VITALS: BMI 25.9
[2018-07-10 11:53] LABS: Glucose,Whole Blood 80 mg/dL (75-99)
--- NOTE | 2018-07-10 13:05 | PN ---
PROGRESS NOTE The patient is admitted to hospital with cellulitis and gangrene of the left foot. We have been asked to see him for preop cardiac evaluation. The patient is currently free of angina or congestive heart failure. Had an echocardiogram that showed normal LV systolic function. PHYSICAL EXAMINATION: On exam, comfortable at rest. VITAL SIGNS: Blood pressure is elevated at 160/79, respiratory rate is 18. Chest exam reveals good air entry bilaterally. Heart exam reveals first and second heart sounds. No gallop. Examination of extremities did not reveal any edema. Peripheral pulses are absent on the left side, diminished on the right side. He is currently on metoprolol, Lipitor, aspirin, which is going to be continued. If necessary, we will add Norvasc. ASSESSMENT: 1. Preop cardiac evaluation. 2. Peripheral vascular disease. PLAN: Patient is an acceptable risk candidate for surgery under anesthesia. Continue current medications. If the blood pressure is elevated, add amlodipine. MMODL / IJN: [id number] /
[2018-07-10] MEDS ORDERED: fentaNYL (PF) 50 MCG/ML 2 ML AMP IVP ONE (14:44)
[2018-07-10] MEDS ORDERED: MIDAZOLAM (PF) 2 MG/2 ML VIAL IVP ONE (14:44)
[2018-07-10] MEDS ORDERED: LIDOCAINE 1% INJ 10MG/ML (20 ML MDV) SQ ONE ×3 (14:45→17:11)
[2018-07-10] MEDS ORDERED: HEPARIN SODIUM 1,000 UN/ML (10ML VL) IV ONE (14:55)
[2018-07-10] MEDS ORDERED: IV FLUID CONTINUATION 1,000 ML IV ONE ×2 (15:08→16:50)
[2018-07-10] MEDS ORDERED: IOPAMIDOL-250 100ML BTL INTRAARTER ONE (15:55)
[2018-07-10] MEDS ORDERED: KETAMINE 10 MG/ML 20 ML VIAL ONE (16:44)
[2018-07-10] MEDS ORDERED: fentaNYL (PF) 50 MCG/ML 2 ML AMP ONE (16:44)
[2018-07-10] MEDS ORDERED: MIDAZOLAM 2 MG/2 ML VIAL ONE (16:44)
[2018-07-10] MEDS ORDERED: PROPOFOL 10 MG/ML 20 ML VIAL IV ONE (16:44)
--- NOTE | 2018-07-10 17:06 | P.OP ---
Date of Procedure: 07/10/18 Preoperative Diagnosis: #1 chronic total occlusion left anterior tibial artery. (Short segment, approximately 3 cm in length) #2 chronic total occlusion left peroneal artery. (Short segment, approximately 4.5 cm in length) #3 chronic total occlusion left anterior tibial artery. (Long segment) #4 gangrene left great toe. #5 status post left femoral to popliteal bypass graft. Postoperative Diagnosis: Same. Procedure(s) Performed: #1 ultrasound-guided cannulation left common femoral artery with placement of a 5-Lebanese sheath. #2 angiogram left lower extremity. #3 percutaneous rotational atherectomy of the left anterior tibial and peroneal artery. #4 conscious sedation 80 minutes. Anesthesia: local (With IV sedation) Surgeon: Terell Hawthorne Estimated Blood Loss (ml): 10 IV fluids (ml): 200 Pathology: none sent Condition: stable Disposition: other (To OR for amputation left great toe) Indications for Procedure: Patient is a 63-year-old male with history of tobacco use status post left femoropopliteal bypass graft who presented with new onset gangrenous changes of the left great toe. He did undergo angiogram of the left lower extremity yesterday which demonstrated a normally patent femoral to popliteal bypass graft, and popliteal artery. It did show a short segment occlusion of both the anterior tibial and peroneal arteries with a long segment occlusion of the posterior tibial artery. In an effort to improve blood flow for toe amputation wound healing patient is offered percutaneous revascularization. Operative Findings: Please see preoperative and postoperative diagnosis Description of Procedure: Patient was brought to special procedure suite. He did receive 50 g of fentanyl and 2 mg of Versed for conscious sedation purposes. Both the left and right groins were sterilely prepped and draped in usual manner. Utilizing ultrasound the left common femoral artery was identified. 2% Xylocaine was utilized for local anesthesia tissues overlying the femoral artery. Through this anesthetized area a micropuncture needle was utilized to cannulate the artery. Once cannulated Softip guidewire was advanced into the femoral artery and its position was confirmed with fluoroscopy. The micropuncture dilator was removed and a 0.035 inch J-tipped guidewire was advanced into the superficial femoral artery. The micropuncture sheath was then exchanged for 5-Lebanese sheath. Patient received 4000 units of heparin intravenously. Arteriogram of the popliteal and tibial arteries was performed. This once again demonstrated occlusion of both the anterior tibial and peroneal arterial segments. Utilizing guidewire and glide catheter combination a 0.018 guidewire was advanced across the occluded anterior tibial segment. The guide catheter was advanced over the guidewire passed the occluded segment. The guidewire was withdrawn. Angiogram was performed which demonstrated catheter to be within the anterior tibial artery. A 0.014 inch spider wire was advanced through the catheter and the catheter was withdrawn. Over the guidewire a 1.25 mm rotational atherectomy bur was advanced and utilized perform atherectomy of the occluded segment. Following this angiogram was performed which demonstrated a clear channel through the entire early previously occluded segment. A 3 mm x 4 cm balloon antroplasty catheter was selected and balloon angioplasty of the anterior tibial artery was then performed. Completion arteriogram demonstrated the artery now to be normally patent. A similar procedure was performed to cross the occluded peroneal segment. The same rotational bur was utilized to perform an atherectomy of the occluded segment and balloon angioplasty was then performed following atherectomy. Completion arteriogram was performed which demonstrated some irregularity of the anterior tibial artery which was then re-balloon dilated with the same 3 mm diameter balloon. Once again completion arteriogram was performed which demonstrated both the anterior tibial and peroneal arterial segments to be widely patent with no flow-limiting lesion noted. With the above findings noted the catheter and sheath were withdrawn and pressure was held at the puncture site until all evidence of bleeding ceased. Patient tolerated procedure well and was taken to the preoperative area for preparation regarding toe amputation. Total sedation time: 80 minutes. Total fluoroscopy time: 18.6 minutes. Total contrast volume: 80 ML's of Isovue 250.
--- NOTE | 2018-07-10 17:50 | PN ---
PROGRESS NOTE DATE OF SERVICE: 07/10/2018 REASON FOR FOLLOWUP: Left big toe gangrene with secondary cellulitis. INTERVAL HISTORY: The patient is currently afebrile. Patient is breathing comfortably. He is status post left leg angiogram and is scheduled for left big toe amputation. The patient denies having any chest pain, shortness of breath or cough. No abdominal pain and no diarrhea. PHYSICAL EXAMINATION: Blood pressure 130/80 with a pulse of 60, temperature 98.1. He is 95% on room air. General description is a middle-aged male lying in bed in no distress. RESPIRATORY SYSTEM: Unlabored breathing. Clear to auscultation anteriorly. HEART: S1, S2. Regular rate and rhythm. ABDOMEN: Soft. No tenderness. Left foot is currently dressed up. No obvious drainage on the dressing. LABS: Hemoglobin is 14.5, white count 8.1, BUN of 8, creatinine 0.89. DIAGNOSTIC IMPRESSION AND PLAN: Patient with left big toe gangrene with secondary cellulitis. Patient scheduled for left big toe amputation today. Currently on cefepime and vancomycin. That will continue while monitoring his clinical course and kidney function closely. Continue with supportive care. MMODL / IJN: [id number] /
--- NOTE | 2018-07-10 17:54 | P.OP ---
Date of Procedure: 07/10/18 Preoperative Diagnosis: Gangrene left great toe. Postoperative Diagnosis: Same. Procedure(s) Performed: Transmetatarsal amputation left great toe. Implants: None. Anesthesia: local (With IV sedation.) Surgeon: Terell Hawthorne Estimated Blood Loss (ml): 5 Urine output (ml): 0 Pathology: other (Left great toe.) Condition: stable Disposition: PACU Indications for Procedure: Patient is a 63-year-old male was a history of peripheral vascular disease who recently presented with gangrenous changes of his left great toe. He did previously undergone a left femoral-popliteal bypass graft in the distant past. 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 He had just undergone percutaneous atherectomy and balloon dilation of anterior tibial and peroneal vessels and now presents for amputation of gangrenous left great toe. Operative Findings: Gangrene left great toe with adequate bleeding to support normal healing. Description of Procedure: Patient was brought the upper and placed in the supine position. He received intravenously administered anesthesia delivered by the department of anesthesiology. Patient's left foot was sterilely prepped and draped in usual manner. 1% Xylocaine was utilized for local anesthesia of the left great toe. A racquet-type incision was then made and carried down through the subcu change tissues. Bleeding was adequate and this was controlled with electrocautery. The distal portion of the metatarsal bone was then transected after soft tissues were mobilized away from the bone. The amputation specimen was then sent to the department of pathology. Multiple bleeding sites were controlled electrocautery. The wound was then irrigated with antibiotic containing solution. The wound was then closed with 4-0 nylon suture placed in vertical mattress form. Proper dressings were applied. Patient tolerated the procedure well and was taken to the recovery area in satisfactory and stable condition.
[2018-07-10] MEDS ORDERED: MORPHINE SULFATE 4 MG/ML SYRINGE IVP ONE (18:38)
--- NOTE | 2018-07-10 18:39 | P.PN ---
Subjective This is a pleasant 63 years old male with past medical history of COPD, DVT and anticoagulation, GERD, hearing difficulty, osteoarthritis. He presents because of infection and gangrene Of the left foot over the first and second toes. His been afebrile, MRSA vitals are stable. INR 3.2, CBC and BMP were unremarkable with no leukocytosis. 07/07/2018 Patient denies chest pain or dyspnea. He still have the problem is in his left food. Patient is hemodynamically stable. Creatinine is 0.9, Coumadin is 2.8. Patient remains on antibiotics as per infectious disease recommendation with vancomycin and cefepime. Surgery team evaluating the patient's with lower extremity Doppler. Plan for amputation and surgical intervention later on this week. His INR has to come down. His Coumadin is on hold. 07/08/2018 Patient clinically the same. No chest pain or dyspnea. I have infection and gangrene in his right foot, remains on antibiotics as per ID team recommendation. Surgical team are following the patient closely and they plan for surgery once his INR improves. His current INR is 2.0. Coumadin is on hold. 07/09/2018 Patient seen and examined in the extended stay unit today. Case was discussed with the surgical team today, he underwent angiogram of his lower extremity which showing total occlusion of the posterior tibial artery and 2 cm in the left anterior tibial artery. Plan for thrombectomy tomorrow plus surgical debr idement of his gangrenous toes and cellulitis. Pre-preop evaluation was done, he has history of smoking, but he never been hospitalized for lung disease as he told me before.. No chest pain. EKG done and we called cardiology team to help us regarding these, echocardiogram is ordered. Cardiology team recommended no contraindication for the procedure/surgery however patient might benefit from ou tpatient stress test. Patient is at high but acceptable risk for this high-risk procedure. Patient remains on antibiotics as per infectious disease recommendation. 07/10/2018 pt is supposed to go for atherectomy with amputation of the gangrenous toe and debridement of his wounds. Patient is seen before the procedure., He was doing well with no new complaints like no chest pain or dyspnea. Patient hemodynamically was stable. Labs were reviewed which were unremarkable CBC and BMP. Patient has been already evaluated by environmental services attendant team for preoperative assessment. Eventually patient underwent the procedure and tolerated well as per surgical team. CONSTITUTIONAL: No fever, no malaise, no fatigue. HEENT: No recent visual problems or hearing problems. Denied any sore throat. CARDIOVASCULAR: No orthopnea, PND, no palpitations, no syncope. PULMONARY: No shortness of breath, no cough, no hemoptysis. GASTROINTESTINAL: No diarrhea, no nausea, no vomiting, no abdominal pain. Normoactive bowel sounds. NEUROLOGICAL: No headaches, no weakness, no numbness. HEMATOLOGICAL: Denies any bleeding or petechiae. GENITOURINARY: Denies any burning micturition, frequency, or urgency. MUSCULOSKELETAL/RHEUMATOLOGICAL: Denies any joint pain, swelling, or any muscle pain. ENDOCRINE: Denies any polyuria or polydipsia. Medication: Vancomycin, cefepime, albuterol, Tylenol, aspirin, Lipitor, colchicine, Colace, Pepcid, Lopressor, morphine, sodium chloride Objective - Vital Signs Vital signs: Vital Signs Temp 97 F L 07/10/18 17:55 Pulse 60 07/10/18 18:10 Resp 16 07/10/18 18:10 BP 108/85 07/10/18 18:10 Pulse Ox 92 L 07/10/18 18:10 Intake & Output 07/09/18 07/10/18 07/10/18 18:59 06:59 18:59 Intake Total 2820 750 500 Balance 2820 750 500 Weight 89.3 kg 89.3 kg Intake: IV 1000 750 500 Cefepime 2 gm In Sodium 100 100 Chloride 0.9% 100 ml @ 200 mls/hr IVPB Q12HR [facility] Rx#:[id number] Sodium Chloride 0.9% 1, 600 400 000 ml @ 75 mls/hr IV . [id number] [facility] Rx#:[id number] Vancomycin 1,500 mg In 250 250 Sodium Chloride 0.9% 250 ml @ 125 mls/hr IVPB Q12HR [facility] Rx#:[id number] Oral 1820 Other: # Voids 0 1 # Bowel Movements 0 - Exam GENERAL: The patient is alert and oriented x3, not in any acute distress. Well developed, well nourished. HEENT: Pupils are round and equally reacting to light. EOMI. No scleral icterus. No conjunctival pallor. Normocephalic, atraumatic. No pharyngeal erythema. No thyromegaly. CARDIOVASCULAR: S1 and S2 present. No murmurs, rubs, or gallops. PULMONARY: Chest is clear to auscultation, no wheezing or crackles. ABDOMEN: Soft, nontender, nondistended, normoactive bowel sounds. No palpable organomegaly. -MUSCULOSKELETAL: No joint swelling or deformity. Cellulitis of the left first and second and third toes. gangerene of the left first toe and the tips of seconds and third toes EXTREMITIES: No cyanosis, clubbing, or pedal edema. NEUROLOGICAL: Gross neurological examination did not reveal any focal deficits. SKIN: No rashes. 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 Current smoker, nicotine dependence History of DVT on anticoagulation History of COPD History of GERD Hearing difficulty History of osteoarthritis Plan: This is a pleasant 63 years old male who presents with cellulitis of the first and second toes, infectious disease consult , vascular surgery consult, continue with antibiotic as per ID team recommendation , follow up culture results. Continue with IV fluids. Cardiology evaluation. Patient going for atherectomy with amputation of the gangrenous toe. Labs and medication were reviewed.. Continue same treatment. Continue with symptomatic treatment. Resume home medication. Monitor lytes and vitals. DVT and GI prophylaxis. Further recommendations depends on the clinical course of the patient DVT prophylaxis: on coumadin GI Prophylaxis: Pepcid Prognosis is guarded
[2018-07-10] MEDS: LACTATED RINGERS 1,000 ML IV SCH (19:59)
[2018-07-10] MEDS: ATORVASTATIN 20 MG TAB PO SCH (22:07)
[2018-07-11] MEDS: MORPHINE SULFATE 4 MG/ML SYRINGE IVP PRN ×6 (01:10→22:42)
[2018-07-11 06:56] LABS: Basophils % (A) 0 %; Eosinophils # (A) 0.4 k/uL (0-0.7); Eosinophils % (A) 4 %; HCT 39.1 % (39.0-53.0); HGB 12.7 gm/dL (13.0-17.5); Lymphocytes # (A) 1.2 k/uL (1.0-4.8); Lymphocytes % (A) 12 %; MCH 27.9 pg (25.0-35.0); MCHC 32.5 g/dL (31.0-37.0); MCV 85.9 fL (80.0-100.0); Mean Platelet Volume 7.9; Monocytes # (A) 0.7 k/uL (0-1.0); Monocytes % (A) 7 %; Neutrophils # (A) 7.4 k/uL (1.3-7.7); Neutrophils % (A) 74 %; Platelet Count 295 k/uL (150-450); RBC 4.55 m/uL (4.30-5.90); RDW 14.5 % (11.5-15.5); WBC 9.9 k/uL (3.8-10.6)
[2018-07-11 07:18] LABS: Anion Gap 4 mmol/L; Blood Urea Nitrogen 8 mg/dL (9-20); Calcium 8.3 mg/dL (8.4-10.2); Carbon Dioxide 35 mmol/L (22-30); Chloride 99 mmol/L (98-107); Glucose 81 mg/dL (74-99); Potassium 3.4 mmol/L (3.5-5.1); Sodium 138 mmol/L (137-145)
[2018-07-11] MEDS: FAMOTIDINE 20 MG TAB PO SCH ×2 (08:12→21:27)
[2018-07-11] MEDS: METOPROLOL TARTRATE 25 MG TAB PO SCH (08:12)
[2018-07-11] MEDS: NICOTINE 21MG/24HR PATCH TRANSDERM SCH (08:12)
[2018-07-11] MEDS: ASPIRIN 81 MG PO SCH (08:12)
[2018-07-11] MEDS: COLCHICIN-PROBENECID 0.5-500MG 1 EACH TAB PO SCH ×2 (08:12→21:27)
[2018-07-11] MEDS: CEPHALEXIN 500 MG CAP PO SCH ×4 (08:12→21:27)
[2018-07-11] MEDS: DOCUSATE 100 MG CAP PO SCH ×3 (08:12→21:27)
[2018-07-11] MEDS: VANCOMYCIN 1,500 MG in SODIUM CHLORIDE 0.9% 250 ML IVPB SCH ×2 (08:13→21:27)
--- NOTE | 2018-07-11 10:04 | IR ---
Fluoroscopy HISTORY: Peripheral vascular occlusive disease 18.6 minutes fluoroscopy time supplied to the referring clinician. 847 intraoperative C-arm images d ocument the procedure. See dictated report from cardiology.
[2018-07-11] MEDS: SODIUM CHLORIDE 0.9% 1,000 ML IV SCH (10:27)
[2018-07-11] MEDS: diphenhydrAMINE 25 MG CAP PO PRN (10:47)
--- NOTE | 2018-07-11 13:23 | P.PN ---
Subjective Progress Note Date: 07/11/18 This is a 63 year old male patient who follows with Dr. Bui on an outpatient basis. He has a history of left great toe blister S/P [facility] with discharge in February 2018 due to his wound being healed. He also has a history of PAD S/P bilateral femoral bypass surgery, partial left great toe amputation, DVT on chronic coumadin therapy, COPD, and current tobacco and marijuana dependence. He denies any history of diabetes. He presented to [facility] emergency room with complaints of infected left great toe. Apparently, he developed a new blister approximately 2 weeks ago which he states was because of his shoes. He states he called to get an appointment in the wound care center, but was unable to obtain an appointment until tomorrow, so he came to the ER for treatment. Cardiology consultation was initially requested for preop clearance.patient underwent transmetatarsal amputation of the left great toe.he also underwent ultrasound-guided cannulation of the left femoral artery, angiogram of the left lower extremity, percutaneous rotational arthrectomy of the left anterior tibial and peroneal artery.seen and examined this morning, denies chest pain or difficulty in breathing. He isexperiencing some discomfort in his left foot.blood pressure 110/60 with a heart rate in the 70s, 92% on room air.White blood cell count 9.9, hemoglobin 12.7, platelet count 295. Sodium 138, potassium 3.4, BUN 8 and creatinine 0.9. Objective - Vital Signs Vital signs: Vital Signs Temp 97.9 F 07/11/18 11:15 Pulse 74 07/11/18 11:15 Resp 18 07/11/18 11:15 BP 111/64 07/11/18 11:15 Pulse Ox 92 L 07/11/18 11:15 Intake & Output 07/10/18 07/11/18 07/11/18 18:59 06:59 18:59 Intake Total 900 550 240 Output Total 400 1400 500 Balance 500 -850 -260 Weight 89.3 kg 87 kg Intake: IV 900 250 Sodium Chloride 0.9% 1, 0 000 ml @ 75 mls/hr IV . [id number] [facility] Rx#:[id number] Vancomycin 1,500 mg In 250 Sodium Chloride 0.9% 250 ml @ 125 mls/hr IVPB Q12HR [facility] Rx#:[id number] Intake, IV Titration 60 Amount Lactated Ringers 1,000 ml 60 @ 20 mls/hr IV .Q24H YASMIN Rx#:[id number] Oral 240 240 Output: Urine 400 1400 500 Other: # Voids 3 # Bowel Movements 0 - Exam PHYSICAL EXAMINATION: GENERAL:63-year-old gentleman in no acute distress at the time of my examination HEENT: Head is atraumatic, normocephalic. Pupils equal, round. Sclera anicteric. Conjunctiva are clear. Mucous membranes of the mouth are moist. Neck is supple. There is no elevated jugular venous pressure.no carotid bruit is heard. HEART EXAMINATION: [Heart S1, S2 normal. No murmur or gallop heard.] CHEST EXAMINATION:[ Lungs are clear to auscultation and precussion. No chest wall tenderness is noted on palpation or with deep breathing.] ABDOMEN: [ Soft, nontender. Bowel sounds are heard. No organomegaly noted]. EXTREMITIES:[ 1+ peripheral pulses with no evidence of peripheral edema and no calf tenderness noted].dressing in place to the left foot NEUROLOGIC [patient is awake, alert and oriented ?-3.] . - Labs CBC & Chem 7: 07/11/18 05:55 07/11/18 05:55 Labs: Abnormal Lab Results - Last 24 Hours (Table) 07/11/18 07/11/18 Range/Units 05:55 05:55 Hgb 12.7 L (13.0-17.5) gm/dL Potassium 3.4 L (3.5-5.1) mmol/L Carbon Dioxide 35 H (22-30) mmol/L BUN 8 L (9-20) mg/dL Calcium 8.3 L (8.4-10.2) mg/dL Microbiology - Last 24 Hours (Table) 07/05/18 14:29 Blood Culture - Preliminary Blood No Growth after 120 hours Assessment and Plan Plan: assessment and plan 1. Gangrenous left great toe with history of blister to his left great toe S/P treatment at the wound care center 2. PAD S/P bilateral femoral bypass surgery 3. DVT in 2007 on chronic coumadin therapy 4. Current tobacco and marijuana dependence 5. Denies history of diabetes last hemaglobin A1c 6.5% in 2017 plan Cardiology's perspective, we'll recommend for the patient to continue on his current medications. We will follow along with you now on an as-needed basis only, please don't hesitate to call with any questions. DNP note has been reviewed, I agree with a documented findings and plan of care. Patient was seen and examined.
--- NOTE | 2018-07-11 15:01 | PN ---
PROGRESS NOTE DATE OF SERVICE: 07/11/2018. REASON FOR FOLLOWUP: Left big toe gangrene with secondary cellulitis. INTERVAL HISTORY: The patient is currently afebrile. Patient is status post left big toe amputation and angioplasty on the left side. The patient tolerated the procedure. Currently complaining of pain to the amputated site, but no worsening. Denies any chest pain. No shortness of breath or cough. No abdominal pain no diarrhea. PHYSICAL EXAMINATION: Blood pressure 111/54 with a pulse of 74, temperature 97.9. He is 92% on room air. General description is a middle-aged male lying in bed in no distress. Respiratory system: Unlabored breathing. Clear to auscultation anteriorly. Heart S1, S2. Regular rate and rhythm. ABDOMEN: Soft, no tenderness. Left foot is currently dressed. Post amputation. No significant drainage. DIAGNOSTIC IMPRESSION AND PLAN: Patient with left big toe gangrene with secondary cellulitis. The patient is status post amputation as infected part has been removed. The patient was not bacteremic. He will not need long-term antibiotic therapy. Currently on vancomycin. To continue while monitoring his clinical course closely. Continue supportive care. MMODL / IJN: [id number] /
--- NOTE | 2018-07-11 18:38 | P.PN ---
Subjective This is a pleasant 63 years old male with past medical history of COPD, DVT and anticoagulation, GERD, hearing difficulty, osteoarthritis. He presents because of infection and gangrene Of the left foot over the first and second toes. His been afebrile, MRSA vitals are stable. INR 3.2, CBC and BMP were unremarkable with no leukocytosis. 07/07/2018 Patient denies chest pain or dyspnea. He still have the problem is in his left food. Patient is hemodynamically stable. Creatinine is 0.9, Coumadin is 2.8. Patient remains on antibiotics as per infectious disease recommendation with vancomycin and cefepime. Surgery team evaluating the patient's with lower extremity Doppler. Plan for amputation and surgical intervention later on this week. His INR has to come down. His Coumadin is on hold. 07/08/2018 Patient clinically the same. No chest pain or dyspnea. I have infection and gangrene in his right foot, remains on antibiotics as per ID team recommendation. Surgical team are following the patient closely and they plan for surgery once his INR improves. His current INR is 2.0. Coumadin is on hold. 07/09/2018 Patient seen and examined in the extended stay unit today. Case was discussed with the surgical team today, he underwent angiogram of his lower extremity which showing total occlusion of the posterior tibial artery and 2 cm in the left anterior tibial artery. Plan for thrombectomy tomorrow plus surgical debr idement of his gangrenous toes and cellulitis. Pre-preop evaluation was done, he has history of smoking, but he never been hospitalized for lung disease as he told me before.. No chest pain. EKG done and we called cardiology team to help us regarding these, echocardiogram is ordered. Cardiology team recommended no contraindication for the procedure/surgery however patient might benefit from ou tpatient stress test. Patient is at high but acceptable risk for this high-risk procedure. Patient remains on antibiotics as per infectious disease recommendation. 07/10/2018 pt is supposed to go for atherectomy with amputation of the gangrenous toe and debridement of his wounds. Patient is seen before the procedure., He was doing well with no new complaints like no chest pain or dyspnea. Patient hemodynamically was stable. Labs were reviewed which were unremarkable CBC and BMP. Patient has been already evaluated by commissary clerk team for preoperative assessment. Eventually patient underwent the procedure and tolerated well as per surgical team. 07/11/2018 Patient is a status post atherectomy of the anterior and posterior tibial artery and amputation of the gangrenous toe. Patient was lying in bed not in distress, fully awake but lethargic. He denies chest pain or dyspnea or any new complaints. He is hemodynamically stable. His left showing him stable CBC and BMP. He was started on Keflex by the surgical team. Objective - Vital Signs Vital signs: Vital Signs Temp 98.1 F 07/11/18 15:51 Pulse 63 07/11/18 15:51 Resp 16 07/11/18 15:51 BP 100/57 07/11/18 15:51 Pulse Ox 92 L 07/11/18 15:51 Intake & Output 07/10/18 07/11/18 07/11/18 18:59 06:59 18:59 Intake Total 900 550 720 Output Total 400 1400 500 Balance 500 -850 220 Weight 89.3 kg 87 kg Intake: IV 900 250 Sodium Chloride 0.9% 1, 0 000 ml @ 75 mls/hr IV . [id number] [facility] Rx#:[id number] Vancomycin 1,500 mg In 250 Sodium Chloride 0.9% 250 ml @ 125 mls/hr IVPB Q12HR [facility] Rx#:[id number] Intake, IV Titration 60 Amount Lactated Ringers 1,000 ml 60 @ 20 mls/hr IV .Q24H [facility] Rx#:[id number] Oral 240 720 Output: Urine 400 1400 500 Other: Voiding Method Urinal # Voids 3 # Bowel Movements 0 - Exam GENERAL: The patient is alert and oriented x3, not in any acute distress. Well developed, well nourished. HEENT: Pupils are round and equally reacting to light. EOMI. No scleral icterus. No conjunctival pallor. Normocephalic, atraumatic. No pharyngeal erythema. No thyromegaly. CARDIOVASCULAR: S1 and S2 present. No murmurs, rubs, or gallops. PULMONARY: Chest is clear to auscultation, no wheezing or crackles. ABDOMEN: Soft, nontender, nondistended, normoactive bowel sounds. No palpable organomegaly. -MUSCULOSKELETAL: No joint swelling or deformity. Cellulitis of the left first and second and third toes. gangerene of the left first toe and the tips of seconds and third toes EXTREMITIES: No cyanosis, clubbing, or pedal edema. NEUROLOGICAL: Gross neurological examination did not reveal any focal deficits. SKIN: No rashes. 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 Current smoker, nicotine dependence History of DVT on anticoagulation History of COPD History of GERD Hearing difficulty History of osteoarthritis Plan: This is a pleasant 63 years old male who presents with cellulitis of the first and second toes, infectious disease consult , vascular surgery consult, continue with antibiotic as per ID team recommendation , follow up culture results. Continue with IV fluids. Cardiology evaluation. Patient going for atherectomy with amputation of the gangrenous toe. Labs and medication were reviewed.. Continue same treatment. Continue with symptomatic treatment. Resume home medication. Monitor lytes and vitals. DVT and GI prophylaxis. Further recommendations depends on the clinical course of the patient DVT prophylaxis: on coumadin GI Prophylaxis: Pepcid Prognosis is guarded
[2018-07-11] MEDS: ATORVASTATIN 20 MG TAB PO SCH (21:27)
[2018-07-12] MEDS: MORPHINE SULFATE 4 MG/ML SYRINGE IVP PRN ×3 (06:32→20:18)
[2018-07-12 07:00] LABS: Basophils % (A) 0 %; Eosinophils # (A) 0.4 k/uL (0-0.7); Eosinophils % (A) 4 %; HCT 38.5 % (39.0-53.0); HGB 12.6 gm/dL (13.0-17.5); Lymphocytes # (A) 1.5 k/uL (1.0-4.8); Lymphocytes % (A) 13 %; MCH 27.8 pg (25.0-35.0); MCHC 32.7 g/dL (31.0-37.0); MCV 84.9 fL (80.0-100.0); Mean Platelet Volume 7.6; Monocytes # (A) 0.9 k/uL (0-1.0); Monocytes % (A) 8 %; Neutrophils # (A) 8.5 k/uL (1.3-7.7); Neutrophils % (A) 74 %; Platelet Count 278 k/uL (150-450); RBC 4.53 m/uL (4.30-5.90); RDW 14.8 % (11.5-15.5); WBC 11.5 k/uL (3.8-10.6)
[2018-07-12 07:13] LABS: Anion Gap 8 mmol/L; Blood Urea Nitrogen 9 mg/dL (9-20); Calcium 8.3 mg/dL (8.4-10.2); Carbon Dioxide 31 mmol/L (22-30); Chloride 97 mmol/L (98-107); Glucose 85 mg/dL (74-99); Potassium 3.4 mmol/L (3.5-5.1); Sodium 136 mmol/L (137-145)
[2018-07-12] MEDS: SODIUM CHLORIDE 0.9% 1,000 ML IV SCH ×3 (07:38→17:12)
[2018-07-12] MEDS: LACTATED RINGERS 1,000 ML IV SCH ×2 (07:38→20:35)
[2018-07-12] MEDS: ASPIRIN 81 MG PO SCH (08:17)
[2018-07-12] MEDS: METOPROLOL TARTRATE 25 MG TAB PO SCH (08:17)
[2018-07-12] MEDS: CEPHALEXIN 500 MG CAP PO SCH ×4 (08:17→20:32)
[2018-07-12] MEDS: DOCUSATE 100 MG CAP PO SCH ×2 (08:17→20:11)
[2018-07-12] MEDS: COLCHICIN-PROBENECID 0.5-500MG 1 EACH TAB PO SCH ×2 (08:17→20:33)
[2018-07-12] MEDS: NICOTINE 21MG/24HR PATCH TRANSDERM SCH (08:17)
[2018-07-12] MEDS: FAMOTIDINE 20 MG TAB PO SCH ×2 (08:17→20:32)
[2018-07-12] MEDS: VANCOMYCIN 1,500 MG in SODIUM CHLORIDE 0.9% 250 ML IVPB SCH ×2 (08:17→20:35)
--- NOTE | 2018-07-12 09:50 | P.PN ---
Subjective This is a pleasant 63 years old male with past medical history of COPD, DVT and anticoagulation, GERD, hearing difficulty, osteoarthritis. He presents because of infection and gangrene Of the left foot over the first and second toes. His been afebrile, MRSA vitals are stable. INR 3.2, CBC and BMP were unremarkable with no leukocytosis. 07/07/2018 Patient denies chest pain or dyspnea. He still have the problem is in his left food. Patient is hemodynamically stable. Creatinine is 0.9, Coumadin is 2.8. Patient remains on antibiotics as per infectious disease recommendation with vancomycin and cefepime. Surgery team evaluating the patient's with lower extremity Doppler. Plan for amputation and surgical intervention later on this week. His INR has to come down. His Coumadin is on hold. 07/08/2018 Patient clinically the same. No chest pain or dyspnea. I have infection and gangrene in his right foot, remains on antibiotics as per ID team recommendation. Surgical team are following the patient closely and they plan for surgery once his INR improves. His current INR is 2.0. Coumadin is on hold. 07/09/2018 Patient seen and examined in the extended stay unit today. Case was discussed with the surgical team today, he underwent angiogram of his lower extremity which showing total occlusion of the posterior tibial artery and 2 cm in the left anterior tibial artery. Plan for thrombectomy tomorrow plus surgical debr idement of his gangrenous toes and cellulitis. Pre-preop evaluation was done, he has history of smoking, but he never been hospitalized for lung disease as he told me before.. No chest pain. EKG done and we called cardiology team to help us regarding these, echocardiogram is ordered. Cardiology team recommended no contraindication for the procedure/surgery however patient might benefit from ou tpatient stress test. Patient is at high but acceptable risk for this high-risk procedure. Patient remains on antibiotics as per infectious disease recommendation. 07/10/2018 pt is supposed to go for atherectomy with amputation of the gangrenous toe and debridement of his wounds. Patient is seen before the procedure., He was doing well with no new complaints like no chest pain or dyspnea. Patient hemodynamically was stable. Labs were reviewed which were unremarkable CBC and BMP. Patient has been already evaluated by mold parter team for preoperative assessment. Eventually patient underwent the procedure and tolerated well as per surgical team. 07/11/2018 Patient is a status post atherectomy of the anterior and posterior tibial artery and amputation of the gangrenous toe. Patient was lying in bed not in distress, fully awake but lethargic. He denies chest pain or dyspnea or any new complaints. He is hemodynamically stable. His left showing him stable CBC and BMP. He was started on Keflex by the surgical team. 07/12/2018 When I saw the patient this morning he was doing well postoperatively. He denies chest pain or dyspnea. He is not in distress. He still has pain at the surgical site and he is getting pain medication. Discussed with the staff to resume his anticoagulation if it's okay with surgical team. Patient antibiotics has been adjusted by the ID team. Creatinine is 0.9. WBC 11.5 Objective - Vital Signs Vital signs: Vital Signs Temp 98.6 F 07/12/18 07:43 Pulse 76 07/12/18 07:43 Resp 18 07/12/18 07:43 BP 106/67 07/12/18 07:43 Pulse Ox 91 L 07/12/18 07:43 Intake & Output 07/11/18 07/12/18 07/12/18 18:59 06:59 18:59 Intake Total 720 240 100 Output Total 500 700 Balance 220 -460 100 Weight 89 kg Intake: Oral 720 240 100 Output: Urine 500 700 Other: Voiding Method Urinal Urinal # Voids 650 - Exam GENERAL: The patient is alert and oriented x3, not in any acute distress. Well developed, well nourished. HEENT: Pupils are round and equally reacting to light. EOMI. No scleral icterus. No conjunctival pallor. Normocephalic, atraumatic. No pharyngeal erythema. No thyromegaly. CARDIOVASCULAR: S1 and S2 present. No murmurs, rubs, or gallops. PULMONARY: Chest is clear to auscultation, no wheezing or crackles. ABDOMEN: Soft, nontender, nondistended, normoactive bowel sounds. No palpable organomegaly. -MUSCULOSKELETAL: No joint swelling or deformity. Cellulitis of the left first and second and third toes. gangerene of the left first toe and the tips of seconds and third toes EXTREMITIES: No cyanosis, clubbing, or pedal edema. NEUROLOGICAL: Gross neurological examination did not reveal any focal deficits. SKIN: No rashes. - Labs CBC & Chem 7: 07/12/18 06:35 07/12/18 06:35 Labs: Abnormal Lab Results - Last 24 Hours (Table) 07/12/18 07/12/18 Range/Units 06:35 06:35 WBC 11.5 H (3.8-10.6) k/uL Hgb 12.6 L (13.0-17.5) gm/dL Hct 38.5 L (39.0-53.0) % Neutrophils # 8.5 H (1.3-7.7) k/uL Sodium 136 L (137-145) mmol/L Potassium 3.4 L (3.5-5.1) mmol/L Chloride 97 L (98-107) mmol/L Carbon Dioxide 31 H (22-30) mmol/L Calcium 8.3 L (8.4-10.2) mg/dL Microbiology - Last 24 Hours (Table) 07/05/18 14:29 Blood Culture - Final Blood No Growth after 144 hours Assessment and Plan Assessment: Cellulitis of the left first and second and third toes gangerene of the left first toe and the tips of seconds and third toes Osteomyelitis of first and second toes 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 Current smoker, nicotine dependence History of DVT on anticoagulation History of COPD History of GERD Hearing difficulty History of osteoarthritis Plan: This is a pleasant 63 years old male who presents with cellulitis of the first and second toes, infectious disease consult , vascular surgery consult, continue with antibiotic as per ID team recommendation , follow up culture results. Continue with IV fluids. Cardiology evaluation. Patient going for atherectomy with amputation of the gangrenous toe. Labs and medication were reviewed.. Continue same treatment. Continue with symptomatic treatment. Resume home medication. Monitor lytes and vitals. DVT and GI prophylaxis. Further recommendations depends on the clinical course of the patient DVT prophylaxis: on coumadin GI Prophylaxis: Pepcid Prognosis is guarded
[2018-07-12] MEDS ORDERED: POTASSIUM CHLORIDE ER 20 MEQ TAB.ER PO STA (09:53)
[2018-07-12] MEDS ORDERED: SODIUM CHLORIDE 0.9% 500 ML 500 ML IV ONE (10:03)
[2018-07-12] MEDS: ONDANSETRON 4 MG/2 ML VIAL IVP PRN (10:06)
[2018-07-12 10:34] LABS: INR 1.2 (<1.2); Prothrombin Time 12.4 sec (9.0-12.0)
[2018-07-12] MEDS ORDERED: traMADol 50 MG TAB PO PRN (12:55)
[2018-07-12] MEDS ORDERED: HEPARIN SODIUM,PORCINE 5,000 UNIT/ML 1 ML VIAL IV PRN (16:02)
[2018-07-12] MEDS: HEPARIN SOD,PORK IN 0.45% NACL 25,000 UNIT in 0.45% NACL 1 250ML.BAG IV SCH (16:41)
[2018-07-12] MEDS: WARFARIN 5 MG TAB PO SCH (17:11)
[2018-07-12] MEDS: ATORVASTATIN 20 MG TAB PO SCH (20:32)
--- NOTE | 2018-07-12 22:28 | PN ---
PROGRESS NOTE DATE OF SERVICE: 07/12/2018. REASON FOR FOLLOWUP: Left big toe gangrene secondary to cellulitis. INTERVAL HISTORY: The patient is currently afebrile. The patient has been breathing comfortably. Denies any chest pain or . No abdominal pain or any worsening pain in the foot area. PHYSICAL EXAMINATION: Blood pressure is 120/59 with a pulse of 73, temperature 98.5. He is 98% on room air. General description is a middle-aged male lying in bed in no distress. Respiratory system: Unlabored breathing, clear to auscultation anteriorly. Heart S1, S2. Regular rate and rhythm. Abdomen soft, no tenderness. Left foot swelling and redness improved. No drainage. LABS: Hemoglobin is 12.3, white count 11.5 with a BUN of 10, creatinine 0.94. DIAGNOSTIC IMPRESSION AND PLAN: Patient with left big toe gangrene, secondary to cellulitis status post amputation of the left great toe and angioplasty. The patient had this done to continue with IV Vanco while monitoring his kidney function closely. Hopefully, finish therapy with a short course of antibiotics. Continue supportive care. MMODL / IJN: [id number] /
[2018-07-13] MEDS: SODIUM CHLORIDE 0.9% 1,000 ML IV SCH ×3 (03:46→21:18)
[2018-07-13 05:33] LABS: Basophils % (A) 0 %; Eosinophils # (A) 0.5 k/uL (0-0.7); Eosinophils % (A) 5 %; HCT 38.9 % (39.0-53.0); HGB 12.7 gm/dL (13.0-17.5); Lymphocytes # (A) 1.7 k/uL (1.0-4.8); Lymphocytes % (A) 18 %; MCH 27.6 pg (25.0-35.0); MCHC 32.6 g/dL (31.0-37.0); MCV 84.8 fL (80.0-100.0); Mean Platelet Volume 7.9; Monocytes # (A) 0.7 k/uL (0-1.0); Monocytes % (A) 7 %; Neutrophils # (A) 6.5 k/uL (1.3-7.7); Neutrophils % (A) 68 %; Platelet Count 289 k/uL (150-450); RBC 4.59 m/uL (4.30-5.90); RDW 14.8 % (11.5-15.5); WBC 9.5 k/uL (3.8-10.6)
[2018-07-13 05:39] LABS: INR 1.1 (<1.2); Partial Thromboplastin Time 49.2 sec (22.0-30.0); Prothrombin Time 11.6 sec (9.0-12.0)
[2018-07-13 05:48] LABS: Anion Gap 6 mmol/L; Blood Urea Nitrogen 8 mg/dL (9-20); Calcium 8.2 mg/dL (8.4-10.2); Carbon Dioxide 31 mmol/L (22-30); Chloride 101 mmol/L (98-107); Glucose 85 mg/dL (74-99); Potassium 3.6 mmol/L (3.5-5.1); Sodium 138 mmol/L (137-145)
--- NOTE | 2018-07-13 07:44 | P.PN ---
Subjective Progress Note Date: 07/13/18 Principal diagnosis: Cellulitis with gangrene of the left foot. The patient is here essentially for treatment with chronic wound and left lower extremity cellulitis. The patient states minimal pain. The patient continues to be on heparin and appropriate IV antibiotic treatment. Objective - Vital Signs Vital signs: Vital Signs Temp 97.7 F 07/13/18 04:00 Pulse 77 07/13/18 04:00 Resp 18 07/13/18 04:00 BP 103/56 07/13/18 04:00 Pulse Ox 93 L 07/13/18 04:00 Intake & Output 07/12/18 07/13/18 07/13/18 18:59 06:59 18:59 Intake Total 1144 710.691 Output Total 200 1525 Balance 944 -814.309 Weight 84.1 kg Intake: IV 250 Vancomycin 1,500 mg In 250 Sodium Chloride 0.9% 250 ml @ 125 mls/hr IVPB Q12HR [facility] Rx#:[id number] Intake, IV Titration 460.691 Amount Heparin Sod,Pork in 0.45% 60.691 NaCl 25,000 unit In 0.45 % NaCl 1 250ml.bag @ 11. 24 UNITS/KG/HR 10.004 mls /hr IV .Q24H [facility] Rx#: [id number] Lactated Ringers 1,000 ml 400 @ 20 mls/hr IV .Q24H [facility] Rx#:[id number] Oral 1144 Output: Urine 200 1525 Other: Voiding Method Urinal # Voids 1 - Constitutional General appearance: Present: average body habitus - EENT Eyes: Absent: abnormal pupil - Neck Neck: Absent: lymphadenopathy - Respiratory Respiratory: bilateral: CTA - Cardiovascular Rhythm: regular Heart sounds: normal: S1, S2 Abnormal Heart Sounds: Absent: S3 Gallop - Gastrointestinal General gastrointestinal: Present: soft. Absent: tenderness - Integumentary Integumentary: Absent: rash - Neurologic Neurologic: Present: CNII-XII intact. Absent: focal deficits - Labs CBC & Chem 7: 07/13/18 04:56 07/13/18 04:56 Labs: Abnormal Lab Results - Last 24 Hours (Table) 07/12/18 07/12/18 07/12/18 Range/Units 10:19 16:23 22:14 Hgb (13.0-17.5) gm/dL Hct (39.0-53.0) % PT 12.4 H (9.0-12.0) sec INR 1.2 H (<1.2) APTT 31.1 H 38.4 H (22.0-30.0) sec Carbon Dioxide (22-30) mmol/L BUN (9-20) mg/dL Calcium (8.4-10.2) mg/dL 07/13/18 07/13/18 07/13/18 Range/Units 04:56 04:56 04:56 Hgb 12.7 L (13.0-17.5) gm/dL Hct 38.9 L (39.0-53.0) % PT (9.0-12.0) sec INR (<1.2) APTT 49.2 H (22.0-30.0) sec Carbon Dioxide 31 H (22-30) mmol/L BUN 8 L (9-20) mg/dL Calcium 8.2 L (8.4-10.2) mg/dL Assessment and Plan (1) Cellulitis of left foot Current Visit: Yes Status: Acute Code(s): L03.116 - CELLULITIS OF LEFT LOWER LIMB SNOMED Code(s): 005850914 (2) Gangrenous toe Current Visit: Yes Status: Acute Code(s): I96 - GANGRENE, NOT ELSEWHERE CLASSIFIED SNOMED Code(s): 640200814 (3) Peripheral vascular disease Current Visit: Yes Status: Acute Code(s): I73.9 - PERIPHERAL VASCULAR DISEASE, UNSPECIFIED SNOMED Code(s): 895292807 Plan: Continue current regimen or treatment. Discharge planning. Question rehab versus home health treatment. Check CBC and CMP in a.m. Anticipate discharge once cleared by consultants. Time with Patient: Greater than 30
[2018-07-13] MEDS: FAMOTIDINE 20 MG TAB PO SCH ×2 (08:39→21:13)
[2018-07-13] MEDS: METOPROLOL TARTRATE 25 MG TAB PO SCH (08:39)
[2018-07-13] MEDS: DOCUSATE 100 MG CAP PO SCH ×2 (08:39→21:09)
[2018-07-13] MEDS: ASPIRIN 81 MG PO SCH (08:39)
[2018-07-13] MEDS: CEPHALEXIN 500 MG CAP PO SCH ×4 (08:40→21:13)
[2018-07-13] MEDS: HYDROcodone/APAP 5-325MG 1 EACH TAB PO PRN ×2 (08:40→12:45)
[2018-07-13] MEDS: COLCHICIN-PROBENECID 0.5-500MG 1 EACH TAB PO SCH ×2 (08:42→21:14)
[2018-07-13] MEDS: VANCOMYCIN 1,500 MG in SODIUM CHLORIDE 0.9% 250 ML IVPB SCH ×2 (08:42→21:13)
[2018-07-13] MEDS: NICOTINE 21MG/24HR PATCH TRANSDERM SCH (10:29)
[2018-07-13] MEDS ORDERED: SODIUM CHLORIDE 0.9% 500 ML 500 ML IV ONE (10:30)
[2018-07-13] MEDS: ONDANSETRON 4 MG/2 ML VIAL IVP PRN (10:48)
[2018-07-13] MEDS: HEPARIN SOD,PORK IN 0.45% NACL 25,000 UNIT in 0.45% NACL 1 250ML.BAG IV SCH (14:09)
[2018-07-13] MEDS: WARFARIN 5 MG TAB PO SCH (17:03)
[2018-07-13] MEDS: LACTATED RINGERS 1,000 ML IV SCH (21:09)
[2018-07-13] MEDS: ATORVASTATIN 20 MG TAB PO SCH (21:13)
[2018-07-13] MEDS: GABAPENTIN 300 MG CAP PO SCH (21:13)
--- NOTE | 2018-07-13 22:44 | PN ---
PROGRESS NOTE DATE OF SERVICE: 07/13/2018. REASON FOR FOLLOW UP: Left big toe gangrene with secondary cellulitis. INTERVAL HISTORY: The patient is currently afebrile, has been breathing comfortably. Denies having any chest pain, no cough. foot area. PHYSICAL EXAMINATION: Blood pressure 117/80 with a pulse of 71, temperature 97.8. He is 94% on room air. General description is a middle-aged male lying in bed in no distress. Respiratory system: Unlabored breathing. Clear to auscultation anteriorly. Heart S1, S2. Regular rate and rhythm. ABDOMEN: Soft, no tenderness. Left big toe amputated site did have some skin necrosis, plaque necrosis with no drainage. LABS: Hemoglobin is 12.7, white count 9.5, BUN of 8, creatinine 0.86. Blood culture on the patient has been negative. DIAGNOSTIC IMPRESSION AND PLAN: Patient with left big toe gangrene, status post amputation left big toe now with evidence of flap necrosis at the site. Discussed with her and was communicated to the surgeon currently on vancomycin, Keflex. antibiotic to cefepime 2 grams q.12 MRSA infection. Monitor the clinical course closely. Continue supportive care. MMODL / IJN: [id number] /
[2018-07-13] MEDS: MORPHINE SULFATE 4 MG/ML SYRINGE IVP PRN (23:25)
[2018-07-14] MEDS: HEPARIN SOD,PORK IN 0.45% NACL 25,000 UNIT in 0.45% NACL 1 250ML.BAG IV SCH (06:14)
[2018-07-14 06:26] LABS: Basophils % (A) 0 %; Eosinophils # (A) 0.4 k/uL (0-0.7); Eosinophils % (A) 5 %; HCT 37.3 % (39.0-53.0); HGB 12.1 gm/dL (13.0-17.5); Lymphocytes # (A) 1.6 k/uL (1.0-4.8); Lymphocytes % (A) 20 %; MCH 27.9 pg (25.0-35.0); MCHC 32.4 g/dL (31.0-37.0); MCV 86.3 fL (80.0-100.0); Mean Platelet Volume 8.1; Monocytes # (A) 0.6 k/uL (0-1.0); Monocytes % (A) 7 %; Neutrophils # (A) 5.2 k/uL (1.3-7.7); Neutrophils % (A) 65 %; Platelet Count 273 k/uL (150-450); RBC 4.32 m/uL (4.30-5.90); RDW 15.1 % (11.5-15.5)
[2018-07-14 06:32] LABS: Anion Gap 6 mmol/L; Blood Urea Nitrogen 4 mg/dL (9-20); Calcium 7.7 mg/dL (8.4-10.2); Carbon Dioxide 26 mmol/L (22-30); Chloride 107 mmol/L (98-107); Glucose 78 mg/dL (74-99); Potassium 3.1 mmol/L (3.5-5.1); Sodium 139 mmol/L (137-145)
[2018-07-14] MEDS: CEPHALEXIN 500 MG CAP PO SCH ×4 (08:52→23:17)
[2018-07-14] MEDS: COLCHICIN-PROBENECID 0.5-500MG 1 EACH TAB PO SCH ×2 (08:52→21:13)
[2018-07-14] MEDS: ASPIRIN 81 MG PO SCH (08:52)
[2018-07-14] MEDS: NICOTINE 21MG/24HR PATCH TRANSDERM SCH (08:52)
[2018-07-14] MEDS: GABAPENTIN 300 MG CAP PO SCH ×3 (08:52→21:13)
[2018-07-14] MEDS: DOCUSATE 100 MG CAP PO SCH ×2 (08:52→23:15)
[2018-07-14] MEDS: FAMOTIDINE 20 MG TAB PO SCH ×2 (08:54→21:14)
[2018-07-14] MEDS: METOPROLOL TARTRATE 25 MG TAB PO SCH (08:54)
--- NOTE | 2018-07-14 09:13 | P.PN ---
Progress Note - Text Progress Note Date: 07/14/18 Patient seen and examined. States left lower extremity feels good and warm. Pain is controlled. He denies any fevers, chills, nausea, vomiting, chest pain or shortness of breath. VSS Left great toe amputation site with some echymosis, no purulence or malodor. Sutures have pulled apart slightly at the distal aspect. Surrounding erythema noted. + capillary refill. +multiphasic signals DP/PT. A/P: 1. S/P LLE revascularization and great toe amputation - local wound care, recommend aquacell dressings daily. - follow up in 1 week.
[2018-07-14] MEDS: VANCOMYCIN 1,500 MG in SODIUM CHLORIDE 0.9% 250 ML IVPB SCH (09:33)
[2018-07-14] MEDS: SODIUM CHLORIDE 0.9% 1,000 ML IV SCH ×2 (09:34→23:15)
[2018-07-14 12:21] LABS: INR 1.3 (<1.2); Prothrombin Time 13.2 sec (9.0-12.0)
[2018-07-14] MEDS ORDERED: DIAZEPAM 2 MG TAB PO PRN (13:24)
--- NOTE | 2018-07-14 13:25 | P.PN ---
Subjective Principal diagnosis: Cellulitis with gangrene of the left foot. The patient is here essentially for treatment with chronic wound and left lower extremity cellulitis. The patient states minimal pain. The patient continues to be on heparin and appropriate IV antibiotic treatment. The patient is debating whether he should go to ECF versus home with home health treatment. We will have discharge planning elucidate this for us once we ascertain appropriate anabolic treatment protocol and anticoagulation protocol. Question Eliquis versus Coumadin. Objective - Vital Signs Vital signs: Vital Signs Temp 98.2 F 07/14/18 12:08 Pulse 75 07/14/18 12:08 Resp 18 07/14/18 12:08 BP 122/71 07/14/18 12:08 Pulse Ox 93 L 07/14/18 12:08 Intake & Output 07/13/18 07/14/18 07/14/18 18:59 06:59 18:59 Intake Total 909.309 803.84 440 Output Total 550 700 Balance 359.309 103.84 440 Weight 88.952 kg Intake: Intake, IV Titration 189.309 203.84 Amount Heparin Sod,Pork in 0.45% 189.309 203.84 NaCl 25,000 unit In 0.45 % NaCl 1 250ml.bag @ 11. 24 UNITS/KG/HR 10.004 mls /hr IV .Q24H [facility] Rx#: [id number] Oral 720 600 440 Output: Urine 550 700 Other: Voiding Method Urinal Urinal Urinal - Constitutional General appearance: Present: cooperative - EENT Eyes: Absent: abnormal pupil - Neck Neck: Absent: lymphadenopathy - Respiratory Respiratory: bilateral: CTA - Cardiovascular Rhythm: regular Heart sounds: normal: S1, S2 Abnormal Heart Sounds: Absent: S3 Gallop - Gastrointestinal General gastrointestinal: Present: soft. Absent: tenderness - Neurologic Neurologic: Present: CNII-XII intact - Labs CBC & Chem 7: 07/14/18 05:44 07/14/18 05:44 Labs: Abnormal Lab Results - Last 24 Hours (Table) 07/14/18 07/14/18 07/14/18 Range/Units 05:44 05:44 05:44 Hgb 12.1 L (13.0-17.5) gm/dL Hct 37.3 L (39.0-53.0) % PT (9.0-12.0) sec INR (<1.2) APTT 65.7 H (22.0-30.0) sec Potassium 3.1 L (3.5-5.1) mmol/L BUN 4 L (9-20) mg/dL Calcium 7.7 L (8.4-10.2) mg/dL 07/14/18 Range/Units 05:44 Hgb (13.0-17.5) gm/dL Hct (39.0-53.0) % PT 13.2 H (9.0-12.0) sec INR 1.3 H (<1.2) APTT (22.0-30.0) sec Potassium (3.5-5.1) mmol/L BUN (9-20) mg/dL Calcium (8.4-10.2) mg/dL Assessment and Plan (1) Cellulitis of left foot Current Visit: Yes Status: Acute Code(s): L03.116 - CELLULITIS OF LEFT LOWER LIMB SNOMED Code(s): 180327279 (2) Gangrenous toe Current Visit: Yes Status: Acute Code(s): I96 - GANGRENE, NOT ELSEWHERE CLASSIFIED SNOMED Code(s): 756270087 (3) Peripheral vascular disease Current Visit: Yes Status: Acute Code(s): I73.9 - PERIPHERAL VASCULAR DISEASE, UNSPECIFIED SNOMED Code(s): 316276255 Plan: Discharge planning element. Left see if we can get Eliquis covered instead of Coumadin to expedite discharge and chronic control. Continue current regimen of antibiotic treatment. Appreciate infectious disease input.
--- NOTE | 2018-07-14 14:22 | PN ---
PROGRESS NOTE DATE OF SERVICE: 07/14/2018 REASON FOR FOLLOWUP: Left foot, bit toe gangrene with secondary cellulitis. INTERVAL HISTORY: The patient is currently afebrile, has been breathing comfortably. Denies having any chest pain or cough, pain to the left foot is currently controlled. No nausea, vomiting or diarrhea. PHYSICAL EXAMINATION: Blood pressure 122/71 with a pulse of 65, temperature 98.2 he is 93% we description is a middle-aged male lying in bed in no distress respiratory system: Unlabored breathing clear to auscultation anteriorly heart S1, S2. Regular rate and rhythm. Soft with left foot dressed, no obvious drainage on the dressing. LABS: White count VIII 0.0, BUN of 4, creatinine 0.83. DIAGNOSTIC IMPRESSION AND PLAN: Patient with left foot left big toe gangrene with secondary cellulitis. The patient at this point covered with oral Keflex per vascular surgeon. Continue for about a week. Local wound care with Aquacel Silver dressing and close outpatient followup. MMODL / IJN: [id number] /
[2018-07-14] MEDS ORDERED: WARFARIN 7.5 MG TAB PO SCH (18:00)
[2018-07-14] MEDS ORDERED: WARFARIN 10 MG TAB PO ONE (18:00)
[2018-07-14] MEDS: HYDROcodone/APAP 5-325MG 1 EACH TAB PO PRN (19:43)
[2018-07-14] MEDS: ATORVASTATIN 20 MG TAB PO SCH (21:13)
[2018-07-14] MEDS: MORPHINE SULFATE 4 MG/ML SYRINGE IVP PRN (22:32)
[2018-07-15] MEDS: HEPARIN SOD,PORK IN 0.45% NACL 25,000 UNIT in 0.45% NACL 1 250ML.BAG IV SCH (01:53)
[2018-07-15 07:28] LABS: Basophils % (A) 0 %; Eosinophils # (A) 0.4 k/uL (0-0.7); Eosinophils % (A) 5 %; HCT 35.8 % (39.0-53.0); HGB 11.9 gm/dL (13.0-17.5); Lymphocytes # (A) 1.9 k/uL (1.0-4.8); Lymphocytes % (A) 23 %; MCH 28.4 pg (25.0-35.0); MCHC 33.3 g/dL (31.0-37.0); MCV 85.5 fL (80.0-100.0); Mean Platelet Volume 7.6; Monocytes # (A) 0.6 k/uL (0-1.0); Monocytes % (A) 8 %; Neutrophils # (A) 5.1 k/uL (1.3-7.7); Neutrophils % (A) 62 %; Platelet Count 292 k/uL (150-450); RBC 4.19 m/uL (4.30-5.90); RDW 14.9 % (11.5-15.5); WBC 8.2 k/uL (3.8-10.6)
[2018-07-15 07:35] LABS: INR 1.6 (<1.2); Partial Thromboplastin Time 79.9 sec (22.0-30.0); Prothrombin Time 16.2 sec (9.0-12.0)
[2018-07-15] MEDS ORDERED: VANCOMYCIN TROUGH DUE 1 EACH MISC MISCELLANE ONE (08:00)
[2018-07-15 08:03] LABS: Anion Gap 9 mmol/L; Blood Urea Nitrogen 5 mg/dL (9-20); Calcium 7.4 mg/dL (8.4-10.2); Carbon Dioxide 29 mmol/L (22-30); Chloride 103 mmol/L (98-107); Glucose 77 mg/dL (74-99); Sodium 141 mmol/L (137-145)
[2018-07-15] MEDS ORDERED: Potassium Replacement Protocol 1 EACH MISC MISCELLANE PRN (08:11)
--- NOTE | 2018-07-15 08:17 | P.DS ---
Providers Date of admission: 07/05/18 15:28 Attending physician: Malik Bui Consults: 07/05/18 15:29 Consult Physician Urgent Consulting Provider: Kishore Patel Consult Reason/Comments: gangrene, established patient Do you want consulting provider notified?: Yes Consult Physician Urgent Consulting Provider: Blaise Rhodes Consult Reason/Comments: Gangrene toe Do you want consulting provider notified?: Yes 07/06/18 07:50 Consult Physician Urgent Consulting Provider: Sean Real Consult Reason/Comments: foot infection Do you want consulting provider notified?: Yes 07/06/18 16:26 Consult Physician Routine Consulting Provider: Tevin Morel Consult Reason/Comments: gangrene left great toe, amputation Do you want consulting provider notified?: Yes 07/09/18 09:53 Consult Physician Urgent Consulting Provider: Terrance Bassett Consult Reason/Comments: preop clearance for Left SFA Do you want consulting provider notified?: Already Contacted Primary care physician: Malik Bui - Discharge Diagnosis(es) (1) Cellulitis of left foot Current Visit: Yes Status: Acute (2) Gangrenous toe Current Visit: Yes Status: Acute (3) Peripheral vascular disease Current Visit: Yes Status: Acute Hospital Course: This is a discharge summary 63-year-old white male essentially minute for cellulitis with gangrene. The patient had ended up having stent placement in the left lower area by vascular surgery. The patient was placed on appropriate antibiotic treatment and discharged home with Keflex. Prognosis is guarded but he is had previous episodes of this in the past. He will follow-up with me in about 3 days for PT/INR check. We will send him home on Coumadin 7.5 mg daily. Patient Condition at Discharge: Fair Plan - Discharge Summary New Discharge Prescriptions: No Action Metoprolol Tartrate 25 mg PO DAILY Warfarin [Coumadin] 5 mg PO HS Albuterol Nebulized [Ventolin Nebulized] 2.5 mg INHALATION RT-QID PRN #120 nebu PRN Reason: Shortness Of Breath Probenecid/Colchicine [Probenecid-Colchicine Tabs] 1 tab PO BID Discharge Medication List Metoprolol Tartrate 25 mg PO DAILY 12/15/14 [History] Warfarin [Coumadin] 5 mg PO HS 09/21/15 [History] Albuterol Nebulized [Ventolin Nebulized] 2.5 mg INHALATION RT-QID PRN #120 nebu 05/21/16 [Rx] Probenecid/Colchicine [Probenecid-Colchicine Tabs] 1 tab PO BID 07/05/18 [History] Follow up Appointment(s)/Referral(s): Terell Hawthorne DO [Doctor of Osteopathic Medicine] - 1 Week [facility], [NON-STAFF] - Terrance Bassett MD [STAFF PHYSICIAN] - 1 Week Malik Bui MD [Primary Care Provider] - 3 Days Patient Instructions/Handouts: Vitamin K in Foods (DC), Toe Amputation (DC), Peripheral Vascular Angioplasty (DC), Safe Use of Anticoagulants (DC) Activity/Diet/Wound Care/Special Instructions: pts insurance does not cover Eliquis Discharge Disposition: HOME WITH HOME HEALTH SERVICES
[2018-07-15] MEDS ORDERED: POTASSIUM CHLORIDE ER 20 MEQ TAB.ER PO STA (08:42)
[2018-07-15] MEDS: NICOTINE 21MG/24HR PATCH TRANSDERM SCH (08:44)
[2018-07-15] MEDS: CEPHALEXIN 500 MG CAP PO SCH ×2 (08:44→11:18)
[2018-07-15] MEDS: GABAPENTIN 300 MG CAP PO SCH (08:44)
[2018-07-15] MEDS: ASPIRIN 81 MG PO SCH (08:44)
[2018-07-15] MEDS: FAMOTIDINE 20 MG TAB PO SCH (08:45)
[2018-07-15] MEDS: DOCUSATE 100 MG CAP PO SCH (08:45)
[2018-07-15] MEDS: COLCHICIN-PROBENECID 0.5-500MG 1 EACH TAB PO SCH (08:45)
[2018-07-15] MEDS: METOPROLOL TARTRATE 25 MG TAB PO SCH (08:47)
[2018-07-15] MEDS: SODIUM CHLORIDE 0.9% 1,000 ML IV SCH (08:55)
[2018-07-15 09:00] VITALS: BP 129/77; PULSE 84; RESP 18; TEMP 97.8
--- NOTE | 2018-07-15 10:24 | P.ARTDOP ---
Arterial Doppler LOWER EXTREMITY ARTERIAL DOPPLER: DATE OF SERVICE: 07/06/2018 Reason for study: Gangrene right foot. Doppler waveforms: Multiphasic throughout on the right and to the popliteal on the left. Atypical below the popliteal on the left.. Pulse volume recording: Some blunting on the digits on the right at but normal on the left. Pressure gradients: Fossa we elevated bilaterally. Ankle-brachial indices: Falsely elevated bilaterally. 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 Suspect proximal vessels are patent with minimal flow disturbance. Suspect distal disease more prominent on the left than the right. Clinical correlation recommended.
--- NOTE | 2018-07-15 13:00 | PN ---
PROGRESS NOTE DATE OF SERVICE: 07/15/2018 REASON FOR FOLLOWUP: Left bit toe gangrene with secondary cellulitis. INTERVAL HISTORY: The patient was seen on rounds this morning. The patient has been afebrile. He is breathing comfortably. He denies having any chest pain or any cough. No abdominal pain and redness has improved to the left foot area. PHYSICAL EXAMINATION: Blood pressure 129/77 with a pulse of 84, temperature is 97.8, he is 95% on room air. General description is a middle-aged male, lying in bed in no distress. RESPIRATORY SYSTEM: Unlabored breathing, clear to auscultation anteriorly. HEART: S1, S2. Regular rate and rhythm. Left foot redness has improved. The wound still has some necrotic skin. No drainage. LABS: Hemoglobin is 11.1, white count of 8.2 with a BUN of 5, creatinine 0.81. DIAGNOSTIC IMPRESSION AND PLAN: Patient with left big toe gangrene with secondary cellulitis, status post left big toe amputation. The patient overall cellulitis has improved. He will finish therapy with oral Keflex, local wound care with Aquacel Silver dressing and close outpatient follow up with surgeon. Continue supportive care. MMODL / IJN: [id number] /
[2018-07-15] MEDS ORDERED: WARFARIN 10 MG TAB PO ONE (18:00)
--- NOTE | 2018-07-16 09:12 | CDI ---
Documentation Clarification Form Date: 07/16/2018 From: Beverley Brown Phone: If questions call Karen Mcintosh @ [phone], Hours-8:30 am & 5 pm M- F Admit Date: 07/05/2018 3:28:00 PM Patient Name: Horacio Garza Visit Number: [id number] Discharge Date: 07/15/2018 11:28:00 AM ATTENTION: The Clinical Documentation Specialists (CDI) and [facility] Coding Staff appreciate your assistance in clarifying documentation. Please respond to the clarification below the line at the bottom and electronically sign. The CDI & [facility] Coding staff will review the response and follow-up if needed. Please note: Queries are made part of the Legal Health Record. If you have any questions, please contact the author of this message via ITS. Dr. Malik Bui Total occlusion left posterior tibial artery & occlusion left peroneal artery documented as postop diagnosis in 07/[address] Briones. History/Risk Factors: COPD, GERD Clinical Indicators: gangrene left great toe ANITA doppler 0.73 on left with good waveforms down to his feet without any evidence of wave form in his great toe. Demonstrated moderate disease in the ankle brachial index consistent w tibial artery occlusive disease per 07/09 procedure note. Treatment: abdominal aortogram/pelvic angiogram/left femoral angiogram/percutaneous rotational atherectomy of left tibial and peroneal artery/transmetatarsal amputation left great toe Consult: Dr Morel, Dr Patel, Dr Real, Dr Leonel Carlos In your professional opinion, can the type of occlusion left tibial artery & left peroneal artery? Atherosclerotic Due to stricture or stenosis Embolic Thrombotic Unspecified Other, please specify Unable to determine MTDD
== END 2018-07-15 11:28 | disposition home health service (06) | DRG 271 ==
LOC: EC 13:36 → 4SSUR 15:28 → 4MS4W 07-06 11:40 → 4SSUR 07-08 17:21 → 3SCARD 07-09 10:07
PROVIDERS: ADMIT Family Medicine; ATTEND Family Medicine
PROC: B41D1ZZ Fluoroscopy of Aorta and Bilateral Lower Extremity Arteries using Low Osmolar Contrast (ICD-10-PCS; 2018-07-09)
PROC: 04CU3ZZ Extirpation of Matter from Left Peroneal Artery, Percutaneous Approach (ICD-10-PCS; 2018-07-10)
PROC: 047U3ZZ Dilation of Left Peroneal Artery, Percutaneous Approach (ICD-10-PCS; 2018-07-10)
PROC: 047Q3ZZ Dilation of Left Anterior Tibial Artery, Percutaneous Approach (ICD-10-PCS; 2018-07-10)
PROC: B41G1ZZ Fluoroscopy of Left Lower Extremity Arteries using Low Osmolar Contrast (ICD-10-PCS; 2018-07-10)
PROC: 04CQ3ZZ Extirpation of Matter from Left Anterior Tibial Artery, Percutaneous Approach (ICD-10-PCS; principal; 2018-07-10 13:30)
PROC: 0Y6N0Z9 Detachment at Left Foot, Partial 1st Ray, Open Approach (ICD-10-PCS; 2018-07-10 13:30)
DX: I77.9 Disorder of arteries and arterioles, unspecified (principal); I96 Gangrene, not elsewhere classified; L03.116 Cellulitis of left lower limb; M86.9 Osteomyelitis, unspecified; L97.524 Non-pressure chronic ulcer of other part of left foot with necrosis of bone; B95.62 Methicillin resistant Staphylococcus aureus infection as the cause of diseases classified elsewhere; J44.9 Chronic obstructive pulmonary disease, unspecified; K21.9 Gastro-esophageal reflux disease without esophagitis; H91.90 Unspecified hearing loss, unspecified ear; M19.90 Unspecified osteoarthritis, unspecified site; F41.9 Anxiety disorder, unspecified; F12.20 Cannabis dependence, uncomplicated; F17.210 Nicotine dependence, cigarettes, uncomplicated; Z71.6 Tobacco abuse counseling; Z99.81 Dependence on supplemental oxygen; Z79.01 Long term (current) use of anticoagulants; Z79.899 Other long term (current) drug therapy; Z87.01 Personal history of pneumonia (recurrent); Z86.14 Personal history of Methicillin resistant Staphylococcus aureus infection; Z86.718 Personal history of other venous thrombosis and embolism; Z98.890 Other specified postprocedural states; Z88.5 Allergy status to narcotic agent; Z82.49 Family history of ischemic heart disease and other diseases of the circulatory system; Z83.2 Family history of diseases of the blood and blood-forming organs and certain disorders involving the immune mechanism; Z89.412 Acquired absence of left great toe; Z89.431 Acquired absence of right foot; R79.1 Abnormal coagulation profile
CPT/HCPCS: 36200; 36415; 37229; 37233; 75625; 75716; 80048; 80053; 80202; 83605; 85025; 85610; 85730; 86140; 87040; 88305; 88311; 93306; 93922; 96365; 96366; 99285

== ENCOUNTER 2018-08-24 11:51 | Inpatient (IN) | payer MEDICARE ==
[2018-08-24] MEDS ORDERED: PIPERACILLIN-TAZOBACTAM 3.375 GM in SODIUM CHLORIDE 0.9% 100 ML IVPB STA (11:53)
[2018-08-24] MEDS ORDERED: MORPHINE SULFATE 4 MG/ML SYRINGE IV STA (13:12)
--- NOTE | 2018-08-24 13:12 | ED ---
General Adult HPI - General Chief complaint: Wound/Laceration Stated complaint: infection/wound on foot Time Seen by Provider: 08/24/18 11:53 Source: patient, RN/MD (Spoke with Dr. Arellano), RN notes reviewed, old records reviewed Mode of arrival: wheelchair Limitations: no limitations - History of Present Illness Initial comments: Patient is a pleasant 63-year-old male presenting to the emergency department after being seen in wound center. Dr. Arellano was concern for gangrene. He does recommend patient be admitted and he will consult. He does recommend Zosyn. Patient states symptoms have worsened over the past several days. Patient is having increased pain and did notice odor. Patient is also having chills. Patient does have history of similar symptoms previously associated with needing removal of his great toe. Patient has had some nausea and vomited. - Related Data Home Medications Medication Instructions Recorded Confirmed Metoprolol Tartrate 25 mg PO DAILY 12/15/14 07/05/18 Probenecid/Colchicine 1 tab PO BID 07/05/18 07/05/18 [Probenecid-Colchicine Tabs] Previous Rx's Medication Instructions Recorded Albuterol Nebulized [Ventolin 2.5 mg INHALATION RT-QID PRN #120 05/21/16 Nebulized] nebu Aspirin 81 mg PO DAILY chew 07/15/18 Atorvastatin [Lipitor] 20 mg PO HS #30 tab 07/15/18 Cephalexin [Keflex] 500 mg PO QID #40 cap 07/15/18 Diazepam [Valium] 2 mg PO TID PRN #90 tab 07/15/18 Gabapentin [Neurontin] 300 mg PO TID #90 cap 07/15/18 HYDROcodone/APAP 5-325MG [[place] 1 each PO Q6HR PRN #120 tab 07/15/18 5-325] Nicotine 21Mg/24Hr Patch [Habitrol] 1 patch TRANSDERM DAILY #30 patch 07/15/18 Warfarin [Coumadin] 7.5 mg PO HS #14 tab 07/15/18 Allergies Allergy/AdvReac Type Severity Reaction Status Date / Time hydromorphone [From Dilaudid] AdvReac Hallucinati Verified 08/24/18 12:26 ons Review of Systems ROS Statement: Those systems with pertinent positive or pertinent negative responses have been documented in the HPI. ROS Other: All systems not noted in ROS Statement are negative. Constitutional: Reports: as per HPI, chills Eyes: Denies: eye pain ENT: Denies: ear pain Respiratory: Denies: cough, dyspnea Cardiovascular: Denies: chest pain Endocrine: Reports: fatigue Gastrointestinal: Reports: nausea. Denies: abdominal pain Genitourinary: Denies: dysuria Musculoskeletal: Denies: back pain Skin: Reports: as per HPI, rash Neurological: Denies: headache Past Medical History Past Medical History: COPD, Deep Vein Thrombosis (DVT), GERD/Reflux, Hearing Disorder / Deafness, Osteoarthritis (OA), Pneumonia, Vascular Disorder Additional Past Medical History / Comment(s): CHRONIC BRONCHITIS.stated has been using 02 3 liters n/c past few weeks. DVT of the right lower extremity in 2007 , peripheral vascular disease, past wound bottom rt foot. History of Any Multi-Drug Resistant Organisms: MRSA Date of last positivie culture/infection: 2007 MDRO Source:: NECK Past Surgical History: Hernia Repair, Orthopedic Surgery Additional Past Surgical History / Comment(s): Bilateral femoral bypass surgery, arthroscopic left knee surgery, bilateral inguinal hernia repair, partial left great toe excision/amputation . Past Anesthesia/Blood Transfusion Reactions: No Reported Reaction Past Psychological History: Anxiety Smoking Status: Current every day smoker Past Alcohol Use History: None Reported Past Drug Use History: Marijuana - Past Family History Brother(s) Family Medical History: Coronary Artery Disease (CAD) Additional Family Medical History / Comment(s): heart attack/cabg Father Family Medical History: No Reported History Mother Family Medical History: Deep Vein Thrombosis (DVT) General Exam Limitations: no limitations General appearance: alert, in no apparent distress Head exam: Present: atraumatic Eye exam: Present: normal appearance Neck exam: Present: normal inspection Respiratory exam: Present: wheezes (Mild expiratory wheeze, patient states chronic and refuses nebulizer) Cardiovascular Exam: Present: regular rate, normal rhythm GI/Abdominal exam: Present: soft. Absent: tenderness Extremities exam: Present: other (Left foot with fresh bandage from wound center) Neurological exam: Present: alert Psychiatric exam: Present: normal affect, normal mood Skin exam: Present: normal color Course Vital Signs 08/24/18 12:22 Temperature 97.7 F Pulse Rate 75 Respiratory 18 Rate Blood Pressure 99/62 O2 Sat by Pulse 98 Oximetry Medical Decision Making - Medical Decision Making Patient is updated. Case was discussed with Dr. Bui, who will admit his patient. Consults will be placed with Dr. Arellano as well as Dr. joy - Lab Data Result diagrams: 08/24/18 13:25 08/24/18 13:25 Disposition Clinical Impression: Gangrene of left foot Disposition: ADMITTED IP TO THIS HOSP Condition: Serious Is patient prescribed a controlled substance at d/c from ED?: No Decision Time: 13:12
[2018-08-24] MEDS ORDERED: NALOXONE 0.4 MG/ML 1 ML VIAL IV PRN (13:13)
[2018-08-24 13:44] LABS: Basophils % (A) 0 %; Eosinophils # (A) 0.2 k/uL (0-0.7); Eosinophils % (A) 1 %; HGB 13.1 gm/dL (13.0-17.5); Lymphocytes # (A) 1.5 k/uL (1.0-4.8); Lymphocytes % (A) 9 %; MCH 27.2 pg (25.0-35.0); MCHC 32.1 g/dL (31.0-37.0); MCV 84.9 fL (80.0-100.0); Mean Platelet Volume 7.1; Monocytes # (A) 0.9 k/uL (0-1.0); Monocytes % (A) 5 %; Neutrophils # (A) 14.2 k/uL (1.3-7.7); Neutrophils % (A) 84 %; Platelet Count 536 k/uL (150-450); RBC 4.82 m/uL (4.30-5.90); RDW 15.3 % (11.5-15.5)
[2018-08-24 13:52] LABS: INR 1.2 (<1.2); Partial Thromboplastin Time 37.8 sec (22.0-30.0); Prothrombin Time 12.3 sec (9.0-12.0)
[2018-08-24 13:56] LABS: ALT 12 U/L (21-72); AST 24 U/L (17-59); African American GFR (CKD) >90 (>60 ml/min/1.73 sqM); Albumin 3.3 g/dL (3.5-5.0); Alkaline Phosphatase 138 U/L (38-126); Anion Gap 9 mmol/L; Blood Urea Nitrogen 13 mg/dL (9-20); Carbon Dioxide 34 mmol/L (22-30); Chloride 95 mmol/L (98-107); Glucose 112 mg/dL (74-99); Potassium 3.6 mmol/L (3.5-5.1); Sodium 138 mmol/L (137-145); Total Bilirubin 0.7 mg/dL (0.2-1.3); Total Protein 7.1 g/dL (6.3-8.2)
[2018-08-24] MEDS: SODIUM CHLORIDE 0.9% 1,000 ML IV SCH ×2 (14:00→21:08)
--- NOTE | 2018-08-24 14:21 | XR ---
EXAMINATION TYPE: XR foot complete LT DATE OF EXAM: 08/24/2018 COMPARISON: 07/05/2018 HISTORY: Pain, infection TECHNIQUE: Three views are submitted. FINDINGS: The osseous structures are intact. There is no acute fracture or dislocation. Large calcaneal spur noted. Vascular calcification seen. Postsurgical change involving the first digit with amputation. S oft tissue edema noted diffusely with subcutaneous emphysema. Subluxation of the proximal phalanx of the second digit. Irregularity of the tuft of the distal phalanx second digit remains.. IMPRESSION: 1. Soft tissue edema and postsurgical changes correlate for cellulitis. Chronic irregularity tuft dis ad phalanx second digit remains with adjacent soft tissue edema could represent chronic osteomyeliti s..
--- NOTE | 2018-08-24 17:02 | P.GSCN ---
History of Present Illness Consult date: 08/24/18 Reason for Consult: Gangrene of previous amputation site Requesting physician: Lucas Arellano History of present illness: 63-year-old gentleman with history of left lower extremity critical limb ischemia and wounds of his great toe who underwent angiogram and revascularization of his anterior and posterior tibial arteries and then amputation of his great toe presents to the emergency Department from wound care secondary to gangrene of the previous amputated site. Patient states over the last couple days he has been noticing worsening wound as well as discoloration of his second and third toe. He had a feeling of being rundown and tired. He was seen at the wound care center by Dr. Arellano who immediately sent into the emergency department for admission for antibiotics and possible surgery. He states having chills as well as malodor coming from his wound site with increased pain. He denies any nausea, vomiting, chest pain or shortness of breath. Review of Systems All systems: negative (What is mentioned in the HPI past medical history) Past Medical History Past Medical History: COPD, Deep Vein Thrombosis (DVT), GERD/Reflux, Hearing Disorder / Deafness, Osteoarthritis (OA), Pneumonia, Vascular Disorder Additional Past Medical History / Comment(s): CHRONIC BRONCHITIS.stated has been using 02 3 liters n/c past few weeks. DVT of the right lower extremity in 2007 , peripheral vascular disease, past wound bottom rt foot. History of Any Multi-Drug Resistant Organisms: MRSA Year Discovered:: 2007 MDRO Source:: NECK Past Surgical History: Hernia Repair, Orthopedic Surgery Additional Past Surgical History / Comment(s): Bilateral femoral bypass surgery, arthroscopic left knee surgery, bilateral inguinal hernia repair, partial left great toe excision/amputation . Past Anesthesia/Blood Transfusion Reactions: No Reported Reaction Past Psychological History: Anxiety Smoking Status: Current every day smoker Past Alcohol Use History: None Reported Past Drug Use History: Marijuana - Past Family History Brother(s) Family Medical History: Coronary Artery Disease (CAD) Additional Family Medical History / Comment(s): heart attack/cabg Father Family Medical History: No Reported History Mother Family Medical History: Deep Vein Thrombosis (DVT) Medications and Allergies Home Medications Medication Instructions Recorded Confirmed Type Metoprolol Tartrate 25 mg PO DAILY 12/15/14 08/24/18 History Albuterol Nebulized [Ventolin 2.5 mg INHALATION RT-QID PRN #120 05/21/16 08/24/18 Rx Nebulized] nebu Probenecid/Colchicine 1 tab PO BID 07/05/18 08/24/18 History [Probenecid-Colchicine Tabs] Nicotine 21Mg/24Hr Patch [Habitrol] 1 patch TRANSDERM DAILY #30 patch 07/15/18 08/24/18 Rx Diazepam [Valium] 10 mg PO BID 08/24/18 08/24/18 History Fluticasone/Salmeterol [Advair 1 puff INHALATION RT-BID 08/24/18 08/24/18 History 250-50 Diskus] HYDROcodone/APAP 7.5-325MG [[place] 1 tab PO Q6HR PRN 08/24/18 08/24/18 History 7.5-325] Magnesium 200 mg PO BID 08/24/18 08/24/18 History Naproxen 500 mg PO BID 08/24/18 08/24/18 History Omeprazole 20 mg PO DAILY 08/24/18 08/24/18 History Warfarin Sodium [Coumadin] 4 mg PO DAILY 08/24/18 08/24/18 History Zinc 50 mg PO DAILY 08/24/18 08/24/18 History Allergies Allergy/AdvReac Type Severity Reaction Status Date / Time hydromorphone [From Dilaudid] AdvReac Hallucinati Verified 08/24/18 15:43 ons Surgical - Exam Vital Signs Temp Pulse Resp BP Pulse Ox 97.7 F 75 18 99/62 98 08/24/18 12:22 08/24/18 12:22 08/24/18 12:22 08/24/18 12:22 08/24/18 12:22 Bilateral feet are warm to the touch. Good capillary refill noted at the left foot. There is bone exposed on the left first metatarsal where the amputation site was. His second and third toes are ischemic there is some malodor noted with bogginess to the tissue. There does not seem to be an abscess formation or tunneling of the wound. - General well developed, well nourished - Eyes PERRL, normal ocular movement - ENT normal pinna, normal nares - Neck no masses - Respiratory normal expansion - Cardiovascular Rhythm: regular - Abdomen Abdomen: soft, non tender - Integumentary no rash, no growths - Neurologic normal coordination - Psychiatric oriented to time, oriented to person, oriented to place Results - Labs 08/24/18 13:25 08/24/18 13:25 Abnormal Lab Results - Last 24 Hours (Table) 08/24/18 08/24/18 08/24/18 Range/Units 13:25 13:25 13:25 WBC 17.0 H (3.8-10.6) k/uL Plt Count 536 H (150-450) k/uL Neutrophils # 14.2 H (1.3-7.7) k/uL PT 12.3 H (9.0-12.0) sec INR 1.2 H (<1.2) APTT 37.8 H (22.0-30.0) sec Chloride 95 L (98-107) mmol/L Carbon Dioxide 34 H (22-30) mmol/L Glucose 112 H (74-99) mg/dL Calcium 8.0 L (8.4-10.2) mg/dL ALT 12 L (21-72) U/L Alkaline Phosphatase 138 H (38-126) U/L Albumin 3.3 L (3.5-5.0) g/dL Diabetes panel 08/24/18 Range/Units 13:25 Sodium 138 (137-145) mmol/L Potassium 3.6 (3.5-5.1) mmol/L Chloride 95 L (98-107) mmol/L Carbon Dioxide 34 H (22-30) mmol/L BUN 13 (9-20) mg/dL Creatinine 0.73 (0.66-1.25) mg/dL Glucose 112 H (74-99) mg/dL Calcium 8.0 L (8.4-10.2) mg/dL AST 24 (17-59) U/L ALT 12 L (21-72) U/L Alkaline Phosphatase 138 H (38-126) U/L Total Protein 7.1 (6.3-8.2) g/dL Albumin 3.3 L (3.5-5.0) g/dL Calcium panel 08/24/18 Range/Units 13:25 Calcium 8.0 L (8.4-10.2) mg/dL Albumin 3.3 L (3.5-5.0) g/dL Pituitary panel 08/24/18 Range/Units 13:25 Sodium 138 (137-145) mmol/L Potassium 3.6 (3.5-5.1) mmol/L Chloride 95 L (98-107) mmol/L Carbon Dioxide 34 H (22-30) mmol/L BUN 13 (9-20) mg/dL Creatinine 0.73 (0.66-1.25) mg/dL Glucose 112 H (74-99) mg/dL Calcium 8.0 L (8.4-10.2) mg/dL Adrenal panel 08/24/18 Range/Units 13:25 Sodium 138 (137-145) mmol/L Potassium 3.6 (3.5-5.1) mmol/L Chloride 95 L (98-107) mmol/L Carbon Dioxide 34 H (22-30) mmol/L BUN 13 (9-20) mg/dL Creatinine 0.73 (0.66-1.25) mg/dL Glucose 112 H (74-99) mg/dL Calcium 8.0 L (8.4-10.2) mg/dL Total Bilirubin 0.7 (0.2-1.3) mg/dL AST 24 (17-59) U/L ALT 12 L (21-72) U/L Alkaline Phosphatase 138 H (38-126) U/L Total Protein 7.1 (6.3-8.2) g/dL Albumin 3.3 L (3.5-5.0) g/dL Assessment and Plan Assessment: 1. Gangrene of the left great toe amputation site, second and third toes. 2. Severe left lower extremity peripheral arterial disease status post at herectomy of the tibioperoneal arteries 3. History of left femoral to popliteal artery bypass 4. Leukocytosis secondary to gangrene and foot wound Plan: To the OR tomorrow for transmetatarsal amputation and wound VAC placement Agree with antibiotics and hydration Continue pain control Time with Patient: Less than 30
[2018-08-24 20:35] VITALS: BMI 23.7
--- NOTE | 2018-08-24 21:36 | P.HPIM ---
History of Present Illness H&P Date: 08/24/18 Chief Complaint: Gangrene of the left foot. This is a history of physical 63-year-old history of tobacco cessation with PAD this had significant left foot wound. Wound VAC has been placed and he has been somewhat noncompliant with taking care of his foot. He still continues to smoke cigarettes. The patient now has worsening wound infection and is here for debridement and most likely amputation. Review of Systems Constitutional: Denies chills, Denies fever Eyes: denies blurred vision, denies pain Ears, nose, mouth and throat: Denies headache, Denies sore throat Cardiovascular: Denies chest pain, Denies shortness of breath Gastrointestinal: Denies abdominal pain, Denies diarrhea, Denies nausea, Denies vomiting Musculoskeletal: Denies myalgias Integumentary: Reports foot/leg ulcers, Reports wounds Past Medical History Past Medical History: COPD, Deep Vein Thrombosis (DVT), GERD/Reflux, Hearing Disorder / Deafness, Osteoarthritis (OA), Pneumonia, Vascular Disorder Additional Past Medical History / Comment(s): CHRONIC BRONCHITIS.Was using oxygen 3 liters 6 months ago. DVT of the right lower extremity in 2007 , peripheral vascular disease, past wound bottom rt foot. osteomylitis right pinky toe in past was on iv antibiotics outpatient years ago History of Any Multi-Drug Resistant Organisms: MRSA Date of last positivie culture/infection: 2007 MDRO Source:: NECK Past Surgical History: Hernia Repair, Orthopedic Surgery Additional Past Surgical History / Comment(s): Bilateral femoral bypass surgery, arthroscopic left knee surgery, bilateral inguinal hernia repair, partial left great toe excision/amputation . removal right pinky bone Past Anesthesia/Blood Transfusion Reactions: No Reported Reaction Past Psychological History: Anxiety Additional Psychological History / Comment(s): pt indepedant. 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 Smoking Status: Current every day smoker Past Alcohol Use History: None Reported Additional Past Alcohol Use History / Comment(s): smoker since age 18 (1972), 1 PPD Past Drug Use History: Marijuana Additional Drug Use History / Comment(s): occ use but none in 5-6 months - Past Family History Brother(s) Family Medical History: Coronary Artery Disease (CAD) Additional Family Medical History / Comment(s): heart attack/cabg Father Family Medical History: No Reported History Mother Family Medical History: Deep Vein Thrombosis (DVT) Medications and Allergies Home Medications Medication Instructions Recorded Confirmed Type Metoprolol Tartrate 25 mg PO DAILY 12/15/14 08/24/18 History Probenecid/Colchicine 1 tab PO BID 07/05/18 08/24/18 History [Probenecid-Colchicine Tabs] Nicotine 21Mg/24Hr Patch [Habitrol] 1 patch TRANSDERM DAILY #30 patch 07/15/18 08/24/18 Rx Diazepam [Valium] 10 mg PO BID 08/24/18 08/24/18 History HYDROcodone/APAP 7.5-325MG [[place] 1 tab PO Q6HR PRN 08/24/18 08/24/18 History 7.5-325] Magnesium 200 mg PO BID 08/24/18 08/24/18 History Naproxen 500 mg PO BID 08/24/18 08/24/18 History Omeprazole 20 mg PO DAILY 08/24/18 08/24/18 History Warfarin Sodium [Coumadin] 2 mg PO DAILY 08/24/18 08/24/18 History Zinc 50 mg PO DAILY 08/24/18 08/24/18 History Allergies Allergy/AdvReac Type Severity Reaction Status Date / Time hydromorphone [From Dilaudid] AdvReac Hallucinati Verified 08/24/18 15:43 ons Physical Exam Vitals: Vital Signs Temp Pulse Resp BP Pulse Ox 08/24/18 18:00 98.1 F 91 18 121/63 96 08/24/18 12:22 97.7 F 75 18 99/62 98 Intake and Output 08/24/18 08/24/18 08/24/18 06:59 14:59 22:59 Other: Weight 81.647 kg - Constitutional General appearance: no acute distress - EENT Eyes: EOMI - Neck Neck: no lymphadenopathy - Respiratory Respiratory: bilateral: CTA - Cardiovascular Rhythm: regular Heart sounds: normal: S1, S2 Abnormal Heart Sounds: no S3 Gallop - Gastrointestinal General gastrointestinal: soft, no tenderness - Neurologic Neurologic: CNII-XII intact, focal deficits - Musculoskeletal Her significant foul-smelling gangrenous tissue of the left dorsum of the foot with bony involvement and significant poor circulation. - Psychiatric Psychiatric: A&O x's 3, appropriate affect, intact judgment & insight Results CBC & Chem 7: 08/24/18 13:25 08/24/18 13:25 Labs: Abnormal Lab Results - Last 24 Hours (Table) 08/24/18 08/24/18 08/24/18 Range/Units 13:25 13:25 13:25 WBC 17.0 H (3.8-10.6) k/uL Plt Count 536 H (150-450) k/uL Neutrophils # 14.2 H (1.3-7.7) k/uL PT 12.3 H (9.0-12.0) sec INR 1.2 H (<1.2) APTT 37.8 H (22.0-30.0) sec Chloride 95 L (98-107) mmol/L Carbon Dioxide 34 H (22-30) mmol/L Glucose 112 H (74-99) mg/dL Calcium 8.0 L (8.4-10.2) mg/dL ALT 12 L (21-72) U/L Alkaline Phosphatase 138 H (38-126) U/L Albumin 3.3 L (3.5-5.0) g/dL Thrombosis Risk Factor Assmnt - Choose All That Apply Any of the Below Risk Factors Present?: Yes Each Factor Represents 1 point: Abnormal pulmonary function (COPD) Other Risk Factors: Yes Each Risk Factor Represents 2 Points: Age 61-74 years Each Risk Factor Represents 3 Points: History of DVT/PE Other congenital or acquired thrombophilia - If yes, enter type in comment: No Thrombosis Risk Factor Assessment Total Risk Factor Score: 6 Thrombosis Risk Factor Assessment Level: High Risk Assessment and Plan (1) Gangrene of left foot Current Visit: Yes Status: Acute Code(s): I96 - GANGRENE, NOT ELSEWHERE CLASSIFIED SNOMED Code(s): 70979059183445779 Plan: Due to the gangrenous nature of the foot and his history of PAD, I suspect partial habitation the foot will be necessary. Check CBC and CMP in a.m. Reconcile medications. Prognosis is guarded secondary to his multiple comorbidities and history of noncompliance.
[2018-08-24] MEDS ORDERED: MORPHINE SULFATE 4 MG/ML SYRINGE IVP PRN (21:40)
[2018-08-24 22:31] LABS: Appearance,Urine Clear (Clear); Bilirubin,Urine Negative (Negative); Blood,Urine Negative (Negative); Color,Urine Yellow; Glucose,Urine (UA) Negative (Negative); Ketones,Urine Negative (Negative); Leukocyte Esterase,Urine Negative (Negative); Nitrite,Urine Negative (Negative); Protein,Urine Trace (Negative); Specific Gravity,Urine 1.023 (1.001-1.035); Urobilinogen,Urine <2.0 mg/dL (<2.0)
--- NOTE | 2018-08-24 23:58 | P.CONS ---
History of Present Illness - Reason for Consult Consult date: 08/24/18 - Chief Complaint Progressive infection left foot - History of Present Illness 63-year-old male has multiple medical troubles including severe peripheral vascular disease and a history of gout. The patient has been following with the vascular surgeon as well as the wound healing Center regarding a nonhealing ulceration to his left foot. Due to gangrenous changes he did have amputation to the left great toe. An open ulceration continued and there was evidence of exposure of the first metatarsal. Local wound care was being utilized in the wound VAC was being attempted. The patient presented to the wound center today for further evaluation. The patient however is evidence of extensive gangrenous change of the foot was instructed emergency center at admission through his primary care physician. Opportunity of discussing the case with the [facility] surgeon occurred. Patient will need somewhat urgent surgical intervention likely with first a transmetatarsal open amputation potentially conversion to a [id number] amputation. The patient relates that things have not gone well for him over the last visit a time. His who is chronically ill has . He is not doing well overall he's lost about 50 pounds in is not taking good care of himself. Review of Systems HEENT:Denies headache or acute visual change. Denies sinus or mouth dis comforts. Denies neck stiffness or pain. Denies significant oral cavity pain. Denies difficulty on swallowing. Lungs: Denies significant shortness of breath, cough, sputum production, or hemoptysis. Cardiovascular: Denies significant shortness of breath, chest pain, chest wall pain, orthopnea, dyspnea on exertion, syncope Gastrointestinal:Denies nausea, vomiting, diarrhea, constipation, hematemesis, melena, hematochezia. No no significant change of bowel habit noticed. Musculoskeletal: Chronic musculoskeletal pain. Skin: As per the HPI progressive ulceration to the left foot. Following odor positive drainage does not feel well Neuro: Denies headache or visual change. Denies any new onset weakness or difficulty with ambulation. Denies falls or seizures. Psychiatric: Chronic anxiety and depression especially with the of his . Endocrine: Severe fatigue poor appetite weight loss are all occurring Past Medical History Past Medical History: COPD, Deep Vein Thrombosis (DVT), GERD/Reflux, Hearing Disorder / Deafness, Osteoarthritis (OA), Pneumonia, Vascular Disorder Additional Past Medical History / Comment(s): CHRONIC BRONCHITIS.Was using oxygen 3 liters 6 months ago. DVT of the right lower extremity in 2008 , peripheral vascular disease, past wound bottom rt foot. osteomylitis right pinky toe in past was on iv antibiotics outpatient years ago History of Any Multi-Drug Resistant Organisms: MRSA Year Discovered:: 2008 MDRO Source:: NECK Past Surgical History: Hernia Repair, Orthopedic Surgery Additional Past Surgical History / Comment(s): Bilateral femoral bypass surgery, arthroscopic left knee surgery, bilateral inguinal hernia repair, partial left great toe excision/amputation . removal right pinky bone Past Anesthesia/Blood Transfusion Reactions: No Reported Reaction Past Psychological History: Anxiety Additional Psychological History / Comment(s): pt indepedant. 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 Patient is a recent is having difficulties with the adjustment Smoking Status: Current every day smoker Past Alcohol Use History: None Reported Additional Past Alcohol Use History / Comment(s): smoker since age 18 (1972), 1 PPD Past Drug Use History: Marijuana Additional Drug Use History / Comment(s): occ use but none in 5-6 months - Past Family History Brother(s) Family Medical History: Coronary Artery Disease (CAD) Additional Family Medical History / Comment(s): heart attack/cabg Father Family Medical History: No Reported History Mother Family Medical History: Deep Vein Thrombosis (DVT) Medications and Allergies Home Medications and Allergies Comment(s): Current Medications Acetaminophen (Tylenol Tab) 650 mg PO Q6HR PRN PRN Reason: Mild Pain or Fever > 100.5 Colchicine (Colbenemid) 1 each PO BID [facility] Diazepam (Valium) 10 mg PO BID [facility]ASMIN Piperacillin Sod/Tazobactam (Sod 3.375 gm/ Sodium Chloride) 100 mls @ 25 mls/hr IVPB Q8HR [facility]MIN Sodium Chloride (Saline 0.9%) 1,000 mls @ 125 mls/hr IV .Q8H YASMIN Last Admin: 08/24/18 21:08 Dose: 125 mls/hr Documented by: Magnesium Oxide (Mag-Ox) 200 mg PO BID [facility] Metoprolol Tartrate (Lopressor) 25 mg PO DAILY [facility] Morphine Sulfate (Morphine Sulfate (Inj)) 4 mg IVP Q6HR PRN PRN Reason: Pain Last Admin: 08/24/18 22:07 Dose: 4 mg Documented by: Naloxone HCl (Narcan) 0.2 mg IV Q2M PRN PRN Reason: Opioid Reversal Nicotine (Habitrol 21mg/24hr Patch) 1 patch TRANSDERM DAILY [facility] Pantoprazole Sodium (Protonix) 40 mg PO AC-BRKFST [facility] Zinc Sulfate (Orazinc) 220 mg PO DAILY [facility] Home Medications Medication Instructions Recorded Confirmed Type Metoprolol Tartrate 25 mg PO DAILY 12/15/14 08/24/18 History Probenecid/Colchicine 1 tab PO BID 07/05/18 08/24/18 History [Probenecid-Colchicine Tabs] Nicotine 21Mg/24Hr Patch [Habitrol] 1 patch TRANSDERM DAILY #30 patch 07/15/18 08/24/18 Rx Diazepam [Valium] 10 mg PO BID 08/24/18 08/24/18 History HYDROcodone/APAP 7.5-325MG [[place] 1 tab PO Q6HR PRN 08/24/18 08/24/18 History 7.5-325] Magnesium 200 mg PO BID 08/24/18 08/24/18 History Naproxen 500 mg PO BID 08/24/18 08/24/18 History Omeprazole 20 mg PO DAILY 08/24/18 08/24/18 History Warfarin Sodium [Coumadin] 2 mg PO DAILY 08/24/18 08/24/18 History Zinc 50 mg PO DAILY 08/24/18 08/24/18 History Allergies Allergy/AdvReac Type Severity Reaction Status Date / Time hydromorphone [From Dilaudid] AdvReac Hallucinati Verified 08/24/18 15:43 ons Physical Exam Vitals: Vital Signs Temp Pulse Pulse Resp BP BP Pulse Ox 08/24/18 21:42 97.9 F 80 18 147/77 93 L 08/24/18 18:00 98.1 F 91 18 121/63 96 08/24/18 12:22 97.7 F 75 18 99/62 98 Intake and Output 08/24/18 08/24/18 08/25/18 14:59 22:59 06:59 Other: Weight 81.647 kg 63-year-old male who has evidence of significant weight loss since his last evaluation. HEENT: Anicteric conjunctiva are pink and moist nasal mucosa grossly intact without significant lesions, there is no thrush. Neck: The neck is supple without significant lymphadenopathy or thyromegaly. Lungs: Symmetrical air entry is noted, expiratory wheezes are scattered no elin bronchial sounds in all dullness or egophony Heart: Regular rate and rhythm with an audible S1-S2, no S3 no S4. There is no significant murmur click or rub, PMI was nondisplaced. Abdomen: Positive bowel sounds soft and nontender without palpable masses or organomegaly. There was no guarding or rebound. Extremities: The upper extremities have excellent pulses they are symmetric, no significant petechiae or telangiectasia. No splinter hemorrhages were noted. The right lower extremity reveals no acute lesions at this time. The left lower shimmy shows evidence of the exposed first metatarsal bone. And at the base of the second and third toes is frankly gangrenous changes with soupy necrotic tissue with foul jain drainage. There is some surrounding erythema to the foot there is however not an extensive amount of ascending lymphangitis. Minimal lymphadenopathy to the left groin. The foot is somewhat warm to palpation Neuro: Awake alert oriented to person place and time. There are no acute new gross focal sensory motor deficits. Results CBC & Chem 7: 08/24/18 13:25 08/24/18 13:25 Labs: Abnormal Lab Results - Last 24 Hours (Table) 08/24/18 08/24/18 08/24/18 Range/Units 13:25 13:25 13:25 WBC 17.0 H (3.8-10.6) k/uL Plt Count 536 H (150-450) k/uL Neutrophils # 14.2 H (1.3-7.7) k/uL PT 12.3 H (9.0-12.0) sec INR 1.2 H (<1.2) APTT 37.8 H (22.0-30.0) sec Chloride 95 L (98-107) mmol/L Carbon Dioxide 34 H (22-30) mmol/L Glucose 112 H (74-99) mg/dL Calcium 8.0 L (8.4-10.2) mg/dL ALT 12 L (21-72) U/L Alkaline Phosphatase 138 H (38-126) U/L Albumin 3.3 L (3.5-5.0) g/dL Urine Protein (Negative) 08/24/18 Range/Units 21:50 WBC (3.8-10.6) k/uL Plt Count (150-450) k/uL Neutrophils # (1.3-7.7) k/uL PT (9.0-12.0) sec INR (<1.2) APTT (22.0-30.0) sec Chloride (98-107) mmol/L Carbon Dioxide (22-30) mmol/L Glucose (74-99) mg/dL Calcium (8.4-10.2) mg/dL ALT (21-72) U/L Alkaline Phosphatase (38-126) U/L Albumin (3.5-5.0) g/dL Urine Protein Trace H (Negative) Laboratory Results WBC 17.0 k/uL (3.8-10.6) H 08/24/18 13:25 RBC 4.82 m/uL (4.30-5.90) 08/24/18 13:25 Hgb 13.1 gm/dL (13.0-17.5) 08/24/18 13:25 Hct 41.0 % (39.0-53.0) 08/24/18 13:25 MCV 84.9 fL (80.0-100.0) 08/24/18 13:25 MCH 27.2 pg (25.0-35.0) 08/24/18 13:25 MCHC 32.1 g/dL (31.0-37.0) 08/24/18 13:25 RDW 15.3 % (11.5-15.5) 08/24/18 13:25 Plt Count 536 k/uL (150-450) H 08/24/18 13:25 Neutrophils % 84 % 08/24/18 13:25 Lymphocytes % 9 % 08/24/18 13:25 Monocytes % 5 % 08/24/18 13:25 Eosinophils % 1 % 08/24/18 13:25 Basophils % 0 % 08/24/18 13:25 Neutrophils # 14.2 k/uL (1.3-7.7) H 08/24/18 13:25 Lymphocytes # 1.5 k/uL (1.0-4.8) 08/24/18 13:25 Monocytes # 0.9 k/uL (0-1.0) 08/24/18 13:25 Eosinophils # 0.2 k/uL (0-0.7) 08/24/18 13:25 Basophils # 0.0 k/uL (0-0.2) 08/24/18 13:25 PT 12.3 sec (9.0-12.0) H 08/24/18 13:25 INR 1.2 (<1.2) H 08/24/18 13:25 APTT 37.8 sec (22.0-30.0) H 08/24/18 13:25 Sodium 138 mmol/L (137-145) 08/24/18 13:25 Potassium 3.6 mmol/L (3.5-5.1) 08/24/18 13:25 Chloride 95 mmol/L (98-107) L 08/24/18 13:25 Carbon Dioxide 34 mmol/L (22-30) H 08/24/18 13:25 Anion Gap 9 mmol/L 08/24/18 13:25 BUN 13 mg/dL (9-20) 08/24/18 13:25 Creatinine 0.73 mg/dL (0.66-1.25) 08/24/18 13:25 Est GFR (CKD-EPI)AfAm >90 (>60 ml/min/1.73 sqM) 08/24/18 13:25 Est GFR (CKD-EPI)NonAf >90 (>60 ml/min/1.73 sqM) 08/24/18 13:25 Glucose 112 mg/dL (74-99) H 08/24/18 13:25 Plasma Lactic Acid [place] 1.5 mmol/L (0.7-2.0) 08/24/18 13:25 Calcium 8.0 mg/dL (8.4-10.2) L 08/24/18 13:25 Total Bilirubin 0.7 mg/dL (0.2-1.3) 08/24/18 13:25 AST 24 U/L (17-59) 08/24/18 13:25 ALT 12 U/L (21-72) L 08/24/18 13:25 Alkaline Phosphatase 138 U/L (38-126) H 08/24/18 13:25 Total Protein 7.1 g/dL (6.3-8.2) 08/24/18 13:25 Albumin 3.3 g/dL (3.5-5.0) L 08/24/18 13:25 Urine Color Yellow 08/24/18 21:50 Urine Appearance Clear (Clear) 08/24/18 21:50 Urine pH 6.0 (5.0-8.0) 08/24/18 21:50 Ur Specific [place] 1.023 (1.001-1.035) 08/24/18 21:50 Urine Protein Trace (Negative) H 08/24/18 21:50 Urine Glucose (UA) Negative (Negative) 08/24/18 21:50 Urine Ketones Negative (Negative) 08/24/18 21:50 Urine Blood Negative (Negative) 08/24/18 21:50 Urine Nitrite Negative (Negative) 08/24/18 21:50 Urine Bilirubin Negative (Negative) 08/24/18 21:50 Urine Urobilinogen <2.0 mg/dL (<2.0) 08/24/18 21:50 Ur Leukocyte Esterase Negative (Negative) 08/24/18 21:50 Assessment and Plan (1) Gangrene of left foot Narrative/Plan: 63-year-old male with multiple medical troubles that include severe peripheral vascular disease status post multiple interventions was not developed evidence of a wet gangrenous process of the left foot at the prior amputation site but specifically to the base the second and third toes with the liquefication of the tissue occurring at this time. The case is discussed with the vascular surgeon in urgent intervention is being planned with a transmetatarsal amputation which would be open to hopefully allow some healing of the site. If this is possibly with intra-abdominal wound healing center afterwards. However the patient may have too much destruction of the foot may have too much ascending infection may require a below the knee amputation possibly with a first step of the disarticulation of the foot and ankle and then antibiotic therapy and then proceeding to BKA in the near future. Based on culture Zosyn is utilized for now local wound care is just a dry dressing. Patient is educated and aware of the current significance of this infectious process. Current Visit: Yes Status: Acute Code(s): I96 - GANGRENE, NOT ELSEWHERE CLASSIFIED SNOMED Code(s): 99163246869365169 (2) Atherosclerosis of [place] arteries of left leg with ulceration of other part of foot Current Visit: No Status: Acute Priority: Medium Code(s): I70.245 - ATHSCL [place] ARTERIES OF LEFT LEG W ULCERATION OTH PRT FOOT SNOMED Code(s): 073185602679042 (3) COPD (chronic obstructive pulmonary disease) Current Visit: Yes Status: Acute Code(s): J44.9 - CHRONIC OBSTRUCTIVE PULMONARY DISEASE, UNSPECIFIED SNOMED Code(s): 48113481
[2018-08-25] MEDS: PIPERACILLIN-TAZOBACTAM 3.375 GM in SODIUM CHLORIDE 0.9% 100 ML IVPB SCH ×3 (00:49→18:10)
[2018-08-25] MEDS ORDERED: MORPHINE SULFATE 4 MG/ML SYRINGE IVP STA (01:38)
[2018-08-25] MEDS: SODIUM CHLORIDE 0.9% 1,000 ML IV SCH ×3 (04:19→22:26)
[2018-08-25] MEDS: DIAZEPAM 5 MG TAB PO SCH ×3 (04:42→21:00)
[2018-08-25] MEDS: MAGNESIUM OXIDE 400 MG TAB PO SCH ×3 (04:42→21:00)
[2018-08-25] MEDS: ZINC SULFATE 220 MG CAP PO SCH ×2 (04:42→10:42)
[2018-08-25] MEDS: COLCHICIN-PROBENECID 0.5-500MG 1 EACH TAB PO SCH ×3 (04:42→21:00)
[2018-08-25] MEDS: PANTOPRAZOLE 40 MG TABLET PO SCH ×2 (04:43→10:42)
[2018-08-25] MEDS: METOPROLOL TARTRATE 25 MG TAB PO SCH (06:27)
[2018-08-25] MEDS: MORPHINE SULFATE 4 MG/ML SYRINGE IVP PRN ×3 (06:27→22:26)
[2018-08-25] MEDS ORDERED: IV FLUID CONTINUATION 1,000 ML IV ONE (07:03)
[2018-08-25] MEDS ORDERED: ONDANSETRON 4 MG/2 ML VIAL IVP ONE (07:22)
[2018-08-25] MEDS ORDERED: MIDAZOLAM (PF) 2 MG/2 ML VIAL IVP ONE (07:23)
[2018-08-25] MEDS ORDERED: KETAMINE 10 MG/ML 20 ML VIAL ONE (07:24)
[2018-08-25] MEDS ORDERED: SUCCINYLCHOLINE CHLORIDE 100 MG/5 ML SYR IV ONE (07:24)
[2018-08-25] MEDS ORDERED: MIDAZOLAM 2 MG/2 ML VIAL ONE (07:24)
[2018-08-25] MEDS ORDERED: DEXAMETHASONE SOD PHOS (MDV) 100 MG/10 ML VIAL ONE (07:24)
[2018-08-25] MEDS ORDERED: PROPOFOL 10 MG/ML 20 ML VIAL IV ONE (07:24)
[2018-08-25] MEDS ORDERED: MORPHINE SULFATE 10 MG/ML SYRINGE ONE (07:24)
[2018-08-25] MEDS ORDERED: ePHEDrine SULFATE/0.9% NACL/PF 50 MG/5 ML SYRINGE IV ONE (07:24)
[2018-08-25] MEDS ORDERED: LIDOCAINE 1% INJ 10MG/ML (20 ML MDV) ONE (07:24)
[2018-08-25] MEDS ORDERED: fentaNYL (PF) 50 MCG/ML 2 ML AMP ONE (07:24)
[2018-08-25] MEDS ORDERED: ceFAZolin 1,000 MG in SODIUM CHLORIDE 0.9% 1,000 ML IRRIGATION ONE (08:06)
--- NOTE | 2018-08-25 08:40 | P.OP ---
Date of Procedure: 08/25/18 Preoperative Diagnosis: Wet gangrene of the left 1st-4th toes Postoperative Diagnosis: Same Procedure(s) Performed: Left transmetatarsal amputation with negative pressure wound vac placement Anesthesia: MONIKA Surgeon: Tevin Morel Estimated Blood Loss (ml): 50 Pathology: other (1-5th metatarsals and toes left foot) Condition: stable Disposition: PACU Indications for Procedure: 63-year-old gentleman who presented to the emergency department secondary to gangrene noted on his left foot at wound care clinic. Patient previously had a first toe amputation as well as revascularization of his left lower extremity a couple weeks ago. Per his primary care physician he has not been managing his wound very well and has been noncompliant with continued tobacco abuse. He states he noted worsening wound over the last several days and per his wound care his wound had been worsening and became gangrenous. He presented to the hospital for antibiotics and further amputation. Operative Findings: Right gangrene with boggy tissue extending from the previous amputation site to the fourth toe. Description of Procedure: After written informed consent was obtained the patient all risks benefits and complications were described the patient was brought to the operative suite and laid in the supine position. The area of the left foot was prepped and draped in usual sterile fashion after appropriate anesthetic was performed per the anesthesiologist. Timeout was performed in normal fashion and patient was administered his antibiotics as scheduled. A fishmouth incision with posterior flap creation was then performed at the left foot around the areas of gangrene. Dissection was then carried down to the metatarsal bones with electrocautery. Periosteal elevator was then utilized to elevate the periosteum from the bone to allow for resection. Utilizing an oscillating saw the first through fifth toes through the metatarsal bones was then utilized and the bones were resected. Further dissection of the posterior aspect of the bone to create the posterior flap was then performed with electrocautery. All bones and tissue were then passed off for pathology. The area was then copiously irrigated with a liter of antibiotic solution. Hemostasis was assured. The lateral aspect of the foot was then closed with 3-0 nylon suture and a vertical mattress fashion. The skin was too taut for the medial aspect of the incision due to the previous surgical site as well as further gangrene decreasing the posterior flap therefore a wound VAC was placed in normal fashion. Patient tolerated procedure well had good brisk bleeding throughout the procedure indicating potential for healing. He was then sent to PACU for recovery.
[2018-08-25] MEDS: MORPHINE SULFATE 4 MG/ML SYRINGE IVP ONE ×2 (08:59→09:03)
[2018-08-25] MEDS ORDERED: MORPHINE SULFATE 4 MG/ML SYRINGE IVP ONE (09:09)
[2018-08-25] MEDS ORDERED: LACTATED RINGERS 1,000 ML IV ONE (09:22)
[2018-08-25] MEDS: NICOTINE 21MG/24HR PATCH TRANSDERM SCH (10:38)
[2018-08-25 12:24] LABS: HCT 38.8 % (39.0-53.0); HGB 12.2 gm/dL (13.0-17.5); Hypochromasia Moderate; MCH 27.1 pg (25.0-35.0); MCHC 31.4 g/dL (31.0-37.0); MCV 86.4 fL (80.0-100.0); Mean Platelet Volume 7.4; Platelet Count 469 k/uL (150-450); RBC 4.49 m/uL (4.30-5.90); RDW 15.6 % (11.5-15.5); WBC 13.7 k/uL (3.8-10.6)
[2018-08-25 12:37] LABS: ALT 8 U/L (21-72); AST 21 U/L (17-59); African American GFR (CKD) >90 (>60 ml/min/1.73 sqM); Albumin 2.9 g/dL (3.5-5.0); Alkaline Phosphatase 123 U/L (38-126); Anion Gap 9 mmol/L; Blood Urea Nitrogen 9 mg/dL (9-20); Calcium 7.8 mg/dL (8.4-10.2); Carbon Dioxide 30 mmol/L (22-30); Chloride 101 mmol/L (98-107); Glucose 145 mg/dL (74-99); Potassium 4.1 mmol/L (3.5-5.1); Sodium 140 mmol/L (137-145); Total Bilirubin 0.4 mg/dL (0.2-1.3); Total Protein 6.4 g/dL (6.3-8.2)
--- NOTE | 2018-08-25 16:34 | P.PN ---
Subjective Progress Note Date: 08/25/18 Principal diagnosis: Foot gangrene. This is a continue present 63-year-old white male essentially admitted for foot infection which was failed outpatient treatment having gangrene and now status post amputation. The patient is complaining of significant pain. Objective - Vital Signs Vital signs: Vital Signs Temp 97.8 F 08/25/18 10:55 Pulse 76 08/25/18 14:41 Resp 18 08/25/18 10:00 BP 117/60 08/25/18 14:41 Pulse Ox 96 08/25/18 14:41 Intake & Output 08/24/18 08/25/18 08/25/18 18:59 06:59 18:59 Intake Total 2165 801 Output Total 1561 Balance 2165 -760 Weight 81.647 kg 81.647 kg Intake: IV 801 Intake, IV Titration 1225 Amount Piperacillin-Tazobactam 3 100 .375 gm In Sodium Chloride 0.9% 100 ml @ 25 mls/hr IVPB Q8HR [facility] Rx# :[id number] Sodium Chloride 0.9% 1, 1125 000 ml @ 125 mls/hr IV . Q8H YASMIN Rx#:[id number] Oral 940 Output: Urine 650 Straight 650 Post Void Residual 836 Estimated Blood Loss 75 Other: Voiding Method Toilet Toilet # Voids 2 - Constitutional General appearance: Present: no acute distress - EENT Eyes: Absent: abnormal pupil - Neck Neck: Absent: lymphadenopathy - Respiratory Respiratory: bilateral: diminished - Cardiovascular Rhythm: regular Heart sounds: normal: S1, S2 Abnormal Heart Sounds: Absent: S3 Gallop - Gastrointestinal General gastrointestinal: Present: soft. Absent: tenderness - Integumentary Integumentary Comment(s): Significant foot wound with gangrene. Foul-smelling. - Labs CBC & Chem 7: 08/25/18 11:56 08/25/18 11:56 Labs: Abnormal Lab Results - Last 24 Hours (Table) 08/24/18 08/25/18 08/25/18 Range/Units 21:50 11:56 11:56 WBC 13.7 H (3.8-10.6) k/uL Hgb 12.2 L (13.0-17.5) gm/dL Hct 38.8 L (39.0-53.0) % RDW 15.6 H (11.5-15.5) % Plt Count 469 H (150-450) k/uL Glucose 145 H (74-99) mg/dL Calcium 7.8 L (8.4-10.2) mg/dL ALT 8 L (21-72) U/L Albumin 2.9 L (3.5-5.0) g/dL Urine Protein Trace H (Negative) Microbiology - Last 24 Hours (Table) 08/24/18 13:25 Blood Culture - Preliminary Blood No Growth after 24 hours 08/24/18 21:00 Gram Stain - Preliminary Foot - Left Wound Culture - Preliminary 08/24/18 21:50 Urine Culture - Preliminary Urine,Voided Assessment and Plan (1) Gangrene of left foot Current Visit: Yes Status: Acute Code(s): I96 - GANGRENE, NOT ELSEWHERE CLASSIFIED SNOMED Code(s): 14029891048058572 (2) COPD (chronic obstructive pulmonary disease) Current Visit: Yes Status: Acute Code(s): J44.9 - CHRONIC OBSTRUCTIVE PULMONARY DISEASE, UNSPECIFIED SNOMED Code(s): 15143022 (3) Hypoxemia Current Visit: No Status: Acute Code(s): R09.02 - HYPOXEMIA SNOMED Code(s) : 619712695 (4) Peripheral vascular disease Current Visit: No Status: Acute Code(s): I73.9 - PERIPHERAL VASCULAR DISEASE, UNSPECIFIED SNOMED Code(s): 231460329 Plan: Follow for postoperative pain control. Check CBC and CMP in a.m. Prognosis somewhat guarded secondary to his history of noncompliance. See orders otherwise. Time with Patient: Less than 30
[2018-08-26] MEDS ORDERED: VANCOMYCIN IV PER PHARMACY 1 EACH MISC MISCELLANE PRN (00:14)
--- NOTE | 2018-08-26 00:16 | P.PN ---
Subjective Progress Note Date: 08/25/18 63-year-old male has multiple medical troubles including severe peripheral vascular disease and a history of gout. The patient has been following with the vascular surgeon as well as the wound healing Center regarding a nonhealing ulceration to his left foot. Due to gangrenous changes he did have amputation to the left great toe. An open ulceration continued and there was evidence of exposure of the first metatarsal. Local wound care was being utilized in the wound VAC was being attempted. The patient presented to the wound center today for further evaluation. The patient however is evidence of extensive gangrenous change of the foot was instructed emergency center at admission through his primary care physician. Opportunity of discussing the case with the [facility] surgeon occurred. Patient will need somewhat urgent surgical intervention likely with first a transmetatarsal open amputation potentially conversion to a [id number] amputation. The patient relates that things have not gone well for him over the last visit a time. His who is chronically ill has . He is not doing well overall he's lost about 50 pounds in is not taking good care of himself. 08/25/2018 the patient has now undergone his transmetatarsal amputation and is tolerating procedure at this time. Pain is well-controlled. Appetite is poor. He has had general overall decline in his status. Is having difficulty with urination have asked for a bladder scan Objective - Vital Signs Vital signs: Vital Signs Temp 97.7 F 08/25/18 21:00 Pulse 74 08/25/18 21:00 Resp 18 08/25/18 21:00 BP 128/62 08/25/18 21:00 Pulse Ox 95 08/25/18 21:00 Intake & Output 08/25/18 08/25/18 08/26/18 06:59 18:59 06:59 Intake Total 2165 1451 Output Total 1561 650 Balance 2165 -110 -650 Weight 81.647 kg Intake: IV 801 Intake, IV Titration 1225 650 Amount Piperacillin-Tazobactam 3 100 100 .375 gm In Sodium Chloride 0.9% 100 ml @ 25 mls/hr IVPB Q8HR [facility] Rx# :[id number] Sodium Chloride 0.9% 1, 1125 550 000 ml @ 125 mls/hr IV . Q8H [facility] Rx#:[id number] Oral 940 Output: Urine 650 650 Straight 650 Post Void Residual 836 Estimated Blood Loss 75 Other: Voiding Method Toilet Toilet # Voids 2 650 - Exam 63-year-old male who has evidence of significant weight loss since his last evaluation. HEENT: Anicteric conjunctiva are pink and moist nasal mucosa grossly intact without significant lesions, there is no thrush. Neck: The neck is supple without significant lymphadenopathy or thyromegaly. Lungs: Symmetrical air entry is noted, expiratory wheezes are scattered no elin bronchial sounds in all dullness or egophony Heart: Regular rate and rhythm with an audible S1-S2, no S3 no S4. There is no significant murmur click or rub, PMI was nondisplaced. Abdomen: Positive bowel sounds soft and nontender without palpable masses or organomegaly. There was no guarding or rebound. Extremities: The upper extremities have excellent pulses they are symmetric, no significant petechiae or telangiectasia. No splinter hemorrhages were noted. The right lower extremity reveals no acute lesions at this time. The left foot reveals evidence of the recent surgical intervention with a transmetatarsal amputation wound VAC is in place. There is some surrounding erythema to the foot there is however not an extensive amount of ascending lymphangitis. Minimal lymphadenopathy to the left groin. The foot is somewhat warm to palpation Neuro: Awake alert oriented to person place and time. There are no acute new gross focal sensory motor deficits. - Labs CBC & Chem 7: 08/25/18 11:56 08/25/18 11:56 Labs: Abnormal Lab Results - Last 24 Hours (Table) 08/25/18 08/25/18 Range/Units 11:56 11:56 WBC 13.7 H (3.8-10.6) k/uL Hgb 12.2 L (13.0-17.5) gm/dL Hct 38.8 L (39.0-53.0) % RDW 15.6 H (11.5-15.5) % Plt Count 469 H (150-450) k/uL Glucose 145 H (74-99) mg/dL Calcium 7.8 L (8.4-10.2) mg/dL ALT 8 L (21-72) U/L Albumin 2.9 L (3.5-5.0) g/dL Microbiology - Last 24 Hours (Table) 08/24/18 21:00 Gram Stain - Preliminary Foot - Left Wound Culture - Preliminary Presumptive MRSA Gram Neg Bacilli Gram Neg Bacilli#2 08/24/18 13:25 Blood Culture - Preliminary Blood No Growth after 24 hours 08/24/18 21:50 Urine Culture - Preliminary Urine,Voided Laboratory Results WBC 13.7 k/uL (3.8-10.6) H 08/25/18 11:56 RBC 4.49 m/uL (4.30-5.90) 08/25/18 11:56 Hgb 12.2 gm/dL (13.0-17.5) L 08/25/18 11:56 Hct 38.8 % (39.0-53.0) L 08/25/18 11:56 MCV 86.4 fL (80.0-100.0) 08/25/18 11:56 MCH 27.1 pg (25.0-35.0) 08/25/18 11:56 MCHC 31.4 g/dL (31.0-37.0) 08/25/18 11:56 RDW 15.6 % (11.5-15.5) H 08/25/18 11:56 Plt Count 469 k/uL (150-450) H 08/25/18 11:56 Neutrophils % 84 % 08/24/18 13:25 Lymphocytes % 9 % 08/24/18 13:25 Monocytes % 5 % 08/24/18 13:25 Eosinophils % 1 % 08/24/18 13:25 Basophils % 0 % 08/24/18 13:25 Neutrophils # 14.2 k/uL (1.3-7.7) H 08/24/18 13:25 Lymphocytes # 1.5 k/uL (1.0-4.8) 08/24/18 13:25 Monocytes # 0.9 k/uL (0-1.0) 08/24/18 13:25 Eosinophils # 0.2 k/uL (0-0.7) 08/24/18 13:25 Basophils # 0.0 k/uL (0-0.2) 08/24/18 13:25 Hypochromasia Moderate 08/25/18 11:56 PT 12.3 sec (9.0-12.0) H 08/24/18 13:25 INR 1.2 (<1.2) H 08/24/18 13:25 APTT 37.8 sec (22.0-30.0) H 08/24/18 13:25 Sodium 140 mmol/L (137-145) 08/25/18 11:56 Potassium 4.1 mmol/L (3.5-5.1) 08/25/18 11:56 Chloride 101 mmol/L (98-107) 08/25/18 11:56 Carbon Dioxide 30 mmol/L (22-30) 08/25/18 11:56 Anion Gap 9 mmol/L 08/25/18 11:56 BUN 9 mg/dL (9-20) 08/25/18 11:56 Creatinine 0.78 mg/dL (0.66-1.25) 08/25/18 11:56 Est GFR (CKD-EPI)AfAm >90 (>60 ml/min/1.73 sqM) 08/25/18 11:56 Est GFR (CKD-EPI)NonAf >90 (>60 ml/min/1.73 sqM) 08/25/18 11:56 Glucose 145 mg/dL (74-99) H 08/25/18 11:56 Plasma Lactic Acid [place] 1.5 mmol/L (0.7-2.0) 08/24/18 13:25 Calcium 7.8 mg/dL (8.4-10.2) L 08/25/18 11:56 Total Bilirubin 0.4 mg/dL (0.2-1.3) 08/25/18 11:56 AST 21 U/L (17-59) 08/25/18 11:56 ALT 8 U/L (21-72) L 08/25/18 11:56 Alkaline Phosphatase 123 U/L (38-126) 08/25/18 11:56 Total Protein 6.4 g/dL (6.3-8.2) 08/25/18 11:56 Albumin 2.9 g/dL (3.5-5.0) L 08/25/18 11:56 Urine Color Yellow 08/24/18 21:50 Urine Appearance Clear (Clear) 08/24/18 21:50 Urine pH 6.0 (5.0-8.0) 08/24/18 21:50 Ur Specific [place] 1.023 (1.001-1.035) 08/24/18 21:50 Urine Protein Trace (Negative) H 08/24/18 21:50 Urine Glucose (UA) Negative (Negative) 08/24/18 21:50 Urine Ketones Negative (Negative) 08/24/18 21:50 Urine Blood Negative (Negative) 08/24/18 21:50 Urine Nitrite Negative (Negative) 08/24/18 21:50 Urine Bilirubin Negative (Negative) 08/24/18 21:50 Urine Urobilinogen <2.0 mg/dL (<2.0) 08/24/18 21:50 Ur Leukocyte Esterase Negative (Negative) 08/24/18 21:50 Microbiology 08/24/18 21:00 Foot - Left Gram Stain - Preliminary 08/24/18 21:00 Foot - Left Wound Culture - Preliminary Presumptive MRSA Gram Neg Bacilli Gram Neg Bacilli#2 08/24/18 13:25 Blood Blood Culture - Preliminary No Growth after 24 hours 08/24/18 21:50 Urine,Voided Urine Culture - Preliminary Assessment and Plan (1) Gangrene of left foot Narrative/Plan: 63-year-old male with multiple medical troubles that include severe peripheral vascular disease status post multiple interventions was not developed evidence of a wet gangrenous process of the left foot at the prior amputation site but specifically to the base the second and third toes with the liquefication of the tissue occurring at this time. The case is discussed with the vascular surgeon in urgent intervention is being planned with a transmetatarsal amputation which would be open to hopefully allow some healing of the site. If this is possibly with intra-abdominal wound healing center afterwards. However the patient may have too much destruction of the foot may have too much ascending infection may require a below the knee amputation possibly with a first step of the disarticulation of the foot and ankle and then antibiotic therapy and then proceeding to BKA in the near future. Based on culture Zosyn is utilized for now local wound care is just a dry dressing. Patient is educated and aware of the current significance of this infectious process. 08/25/2018 the patient is now status post a transmetatarsal amputation. Zosyn has been begun however now laboratories relating that likely MRSA is also occurring with multiple gram-negative bacilli. Will initiate vancomycin therapy in addition to the Zosyn for now. Wound VAC is being utilized. We'll likely need to go to rehabilitation to receive local wound care, nutritional care, intravenous antibiotic therapy for this complex wound. After discharge he will follow with the wound center. Current Visit: Yes Status: Acute Code(s): I96 - GANGRENE, NOT ELSEWHERE CLASSIFIED SNOMED Code(s): 62300759990587873 (2) Atherosclerosis of [place] arteries of left leg with ulceration of other part of foot Current Visit: No Status: Acute Priority: Medium Code(s): I70.245 - ATHSCL [place] ARTERIES OF LEFT LEG W ULCERATION OTH PRT FOOT SNOMED Code(s): 569873465659828 (3) COPD (chronic obstructive pulmonary disease) Current Visit: Yes Status: Acute Code(s): J44.9 - CHRONIC OBSTRUCTIVE PULMONARY DISEASE, UNSPECIFIED SNOMED Code(s): 24090995
[2018-08-26] MEDS ORDERED: VANCOMYCIN 1,750 MG in SODIUM CHLORIDE 0.9% 500 ML 500 ML IVPB ONE (01:00)
[2018-08-26] MEDS: PIPERACILLIN-TAZOBACTAM 3.375 GM in SODIUM CHLORIDE 0.9% 100 ML IVPB SCH ×3 (01:10→16:38)
[2018-08-26] MEDS: MORPHINE SULFATE 4 MG/ML SYRINGE IVP PRN ×4 (03:02→20:24)
[2018-08-26] MEDS: SODIUM CHLORIDE 0.9% 1,000 ML IV SCH ×2 (05:21→10:00)
--- NOTE | 2018-08-26 08:53 | P.PN ---
Subjective Principal diagnosis: Foot gangrene. The patient's postoperative day #1 amputation of the distal aspect of the foot. The patient is doing quite well. Pain is fairly well controlled. No sniffing nausea or vomiting. Appetite seems to be tolerated. Objective - Vital Signs Vital signs: Vital Signs Temp 97.5 F L 08/26/18 05:00 Pulse 97 08/26/18 05:00 Resp 18 08/26/18 05:00 BP 100/56 08/26/18 05:00 Pulse Ox 96 08/26/18 05:00 Intake & Output 08/25/18 08/26/18 08/26/18 18:59 06:59 18:59 Intake Total 1451 2940 Output Total 1561 1550 Balance -110 1390 Weight 81.647 kg Intake: IV 801 Intake, IV Titration 650 1450 Amount Piperacillin-Tazobactam 3 100 100 .375 gm In Sodium Chloride 0.9% 100 ml @ 25 mls/hr IVPB Q8HR [facility] Rx# :[id number] Sodium Chloride 0.9% 1, 550 1100 000 ml @ 125 mls/hr IV . Q8H [facility] Rx#:[id number] Vancomycin 1,500 mg In 250 Sodium Chloride 0.9% 250 ml @ 125 mls/hr IVPB Q12H [facility] Rx#:[id number] Oral 1490 Output: Urine 650 1550 Straight 650 Post Void Residual 836 Estimated Blood Loss 75 Other: Voiding Method Toilet Toilet Toilet # Voids 650 - Constitutional General appearance: Present: average body habitus - EENT Eyes: Absent: abnormal pupil - Neck Neck: Absent: lymphadenopathy - Respiratory Respiratory: bilateral: CTA - Cardiovascular Rhythm: regular Heart sounds: normal: S1, S2 Abnormal Heart Sounds: Absent: S3 Gallop - Gastrointestinal General gastrointestinal: Present: soft - Integumentary Integumentary Comment(s): 1 for medication noted. - Labs CBC & Chem 7: 08/25/18 11:56 08/25/18 11:56 Labs: Abnormal Lab Results - Last 24 Hours (Table) 08/25/18 08/25/18 Range/Units 11:56 11:56 WBC 13.7 H (3.8-10.6) k/uL Hgb 12.2 L (13.0-17.5) gm/dL Hct 38.8 L (39.0-53.0) % RDW 15.6 H (11.5-15.5) % Plt Count 469 H (150-450) k/uL Glucose 145 H (74-99) mg/dL Calcium 7.8 L (8.4-10.2) mg/dL ALT 8 L (21-72) U/L Albumin 2.9 L (3.5-5.0) g/dL Microbiology - Last 24 Hours (Table) 08/24/18 21:50 Urine Culture - Final Urine,Voided 08/24/18 21:00 Gram Stain - Preliminary Foot - Left Wound Culture - Preliminary Presumptive MRSA Gram Neg Bacilli Gram Neg Bacilli#2 08/24/18 13:25 Blood Culture - Preliminary Blood No Growth after 24 hours Assessment and Plan (1) Gangrene of left foot Current Visit: Yes Status: Acute Code(s): I96 - GANGRENE, NOT ELSEWHERE CLASSIFIED SNOMED Code(s): 96597667923725334 (2) COPD (chronic obstructive pulmonary disease) Current Visit: Yes Status: Acute Code(s): J44.9 - CHRONIC OBSTRUCTIVE PULMONARY DISEASE, UNSPECIFIED SNOMED Code(s): 44337629 (3) Hypoxemia Current Visit: No Status: Acute Code(s): R09.02 - HYPOXEMIA SNOMED Code(s): 003329735 (4) Peripheral vascular disease Current Visit: No Status: Acute Code(s): I73.9 - PERIPHERAL VASCULAR DISEASE, UNSPECIFIED SNOMED Code(s): 610042572 Plan: Continue antibiotic treatment and postop protocol. Weight-bearing per Vascular surgery. Case management/discharge planning for discharge disposition. Check CBC and CMP in a.m. Time with Patient: Less than 30
[2018-08-26 10:07] LABS: Basophils % (A) 0 %; Eosinophils # (A) 0.1 k/uL (0-0.7); Eosinophils % (A) 0 %; HCT 32.7 % (39.0-53.0); HGB 10.1 gm/dL (13.0-17.5); Hypochromasia Slight; Lymphocytes # (A) 1.2 k/uL (1.0-4.8); Lymphocytes % (A) 10 %; MCH 26.9 pg (25.0-35.0); MCHC 30.8 g/dL (31.0-37.0); MCV 87.5 fL (80.0-100.0); Mean Platelet Volume 7.2; Monocytes # (A) 0.6 k/uL (0-1.0); Monocytes % (A) 5 %; Neutrophils # (A) 10.4 k/uL (1.3-7.7); Neutrophils % (A) 84 %; Platelet Count 418 k/uL (150-450); RBC 3.74 m/uL (4.30-5.90); RDW 15.4 % (11.5-15.5); WBC 12.4 k/uL (3.8-10.6)
[2018-08-26] MEDS: METOPROLOL TARTRATE 25 MG TAB PO SCH (10:22)
[2018-08-26] MEDS: MAGNESIUM OXIDE 400 MG TAB PO SCH ×2 (10:23→20:25)
[2018-08-26] MEDS: DIAZEPAM 5 MG TAB PO SCH ×2 (10:24→20:24)
[2018-08-26] MEDS: COLCHICIN-PROBENECID 0.5-500MG 1 EACH TAB PO SCH ×2 (10:24→20:32)
[2018-08-26] MEDS: ZINC SULFATE 220 MG CAP PO SCH (10:24)
[2018-08-26 10:31] LABS: ALT 10 U/L (21-72); AST 18 U/L (17-59); African American GFR (CKD) >90 (>60 ml/min/1.73 sqM); Albumin 2.4 g/dL (3.5-5.0); Alkaline Phosphatase 102 U/L (38-126); Anion Gap 5 mmol/L; Blood Urea Nitrogen 8 mg/dL (9-20); Calcium 7.2 mg/dL (8.4-10.2); Carbon Dioxide 32 mmol/L (22-30); Chloride 105 mmol/L (98-107); Glucose 100 mg/dL (74-99); Potassium 3.8 mmol/L (3.5-5.1); Sodium 142 mmol/L (137-145); Total Bilirubin 0.2 mg/dL (0.2-1.3); Total Protein 5.5 g/dL (6.3-8.2)
[2018-08-26] MEDS: NICOTINE 21MG/24HR PATCH TRANSDERM SCH (10:31)
--- NOTE | 2018-08-26 10:56 | P.PN ---
Subjective Progress Note Date: 08/26/18 Principal diagnosis: left foot gangrene s/p TMA 63 year old gentleman with left foot gangrene s/p TMA was seen and examined. He is doing well this morning. No fevers, chills, nausea, vomiting, chest pain or shortness of breath. His wound vac is intact and doing well. He wants to get up and walk on his heel. Cultures demonstrate MRSA bacteria. Objective - Vital Signs Vital signs: Vital Signs Temp 97.5 F L 08/26/18 05:00 Pulse 97 08/26/18 05:00 Resp 18 08/26/18 05:00 BP 100/56 08/26/18 05:00 Pulse Ox 96 08/26/18 05:00 Intake & Output 08/25/18 08/26/18 08/26/18 18:59 06:59 18:59 Intake Total 1451 2940 Output Total 1561 1550 Balance -110 1390 Weight 81.647 kg Intake: IV 801 Intake, IV Titration 650 1450 Amount Piperacillin-Tazobactam 3 100 100 .375 gm In Sodium Chloride 0.9% 100 ml @ 25 mls/hr IVPB Q8HR [facility] Rx# :[id number] Sodium Chloride 0.9% 1, 550 1100 000 ml @ 125 mls/hr IV . Q8H [facility] Rx#:[id number] Vancomycin 1,500 mg In 250 Sodium Chloride 0.9% 250 ml @ 125 mls/hr IVPB Q12H [facility] Rx#:[id number] Oral 1490 Output: Urine 650 1550 Straight 650 Post Void Residual 836 Estimated Blood Loss 75 Other: Voiding Method Toilet Toilet Toilet # Voids 650 - Exam left TMA site with wound vac in place. Foot warm with good cap refill. - Labs CBC & Chem 7: 08/26/18 09:09 08/26/18 09:09 Labs: Abnormal Lab Results - Last 24 Hours (Table) 08/25/18 08/25/18 08/26/18 Range/Units 11:56 11:56 09:09 WBC 13.7 H 12.4 H (3.8-10.6) k/uL RBC 3.74 L (4.30-5.90) m/uL Hgb 12.2 L 10.1 L (13.0-17.5) gm/dL Hct 38.8 L 32.7 L (39.0-53.0) % MCHC 30.8 L (31.0-37.0) g/dL RDW 15.6 H (11.5-15.5) % Plt Count 469 H (150-450) k/uL Neutrophils # 10.4 H (1.3-7.7) k/uL Carbon Dioxide (22-30) mmol/L BUN (9-20) mg/dL Glucose 145 H (74-99) mg/dL Calcium 7.8 L (8.4-10.2) mg/dL ALT 8 L (21-72) U/L Total Protein (6.3-8.2) g/dL Albumin 2.9 L (3.5-5.0) g/dL 08/26/18 Range/Units 09:09 WBC (3.8-10.6) k/uL RBC (4.30-5.90) m/uL Hgb (13.0-17.5) gm/dL Hct (39.0-53.0) % MCHC (31.0-37.0) g/dL RDW (11.5-15.5) % Plt Count (150-450) k/uL Neutrophils # (1.3-7.7) k/uL Carbon Dioxide 32 H (22-30) mmol/L BUN 8 L (9-20) mg/dL Glucose 100 H (74-99) mg/dL Calcium 7.2 L (8.4-10.2) mg/dL ALT 10 L (21-72) U/L Total Protein 5.5 L (6.3-8.2) g/dL Albumin 2.4 L (3.5-5.0) g/dL Microbiology - Last 24 Hours (Table) 08/24/18 21:50 Urine Culture - Final Urine,Voided 08/24/18 21:00 Gram Stain - Preliminary Foot - Left Wound Culture - Preliminary Presumptive MRSA Gram Neg Bacilli Gram Neg Bacilli#2 08/24/18 13:25 Blood Culture - Preliminary Blood No Growth after 24 hours Assessment and Plan Assessment: 1. POD 1 left TMA secondary to gangrene of the left great toe amputation site, second and third toes. 2. Severe left lower extremity peripheral arterial disease status post atherectomy of the tibioperoneal arteries 3. History of left femoral to popliteal artery bypass 4. Leukocytosis secondary to gangrene and foot wound- improving 5. MRSA left foot wound infection Plan: Continue anti-biotics per ID. Continue wound vac as outpatient and follow up in wound care center.
[2018-08-26] MEDS: PANTOPRAZOLE 40 MG TABLET PO SCH (11:12)
[2018-08-26] MEDS: VANCOMYCIN 1,500 MG in SODIUM CHLORIDE 0.9% 250 ML IVPB SCH ×2 (11:20→18:20)
[2018-08-26] MEDS ORDERED: VANCOMYCIN 1,500 MG in SODIUM CHLORIDE 0.9% 250 ML IVPB SCH (13:00)
[2018-08-27] MEDS: PIPERACILLIN-TAZOBACTAM 3.375 GM in SODIUM CHLORIDE 0.9% 100 ML IVPB SCH ×4 (00:02→23:54)
[2018-08-27] MEDS: SODIUM CHLORIDE 0.9% 1,000 ML IV SCH ×4 (00:02→20:29)
[2018-08-27] MEDS: MORPHINE SULFATE 4 MG/ML SYRINGE IVP PRN ×6 (00:02→23:55)
[2018-08-27] MEDS: VANCOMYCIN 1,500 MG in SODIUM CHLORIDE 0.9% 250 ML IVPB SCH ×2 (02:25→18:18)
[2018-08-27] MEDS: MAGNESIUM OXIDE 400 MG TAB PO SCH ×2 (08:01→20:28)
[2018-08-27] MEDS: METOPROLOL TARTRATE 25 MG TAB PO SCH (08:02)
[2018-08-27] MEDS: DIAZEPAM 5 MG TAB PO SCH ×2 (08:02→20:29)
[2018-08-27] MEDS: PANTOPRAZOLE 40 MG TABLET PO SCH (08:02)
[2018-08-27] MEDS: NICOTINE 21MG/24HR PATCH TRANSDERM SCH (08:03)
[2018-08-27] MEDS: COLCHICIN-PROBENECID 0.5-500MG 1 EACH TAB PO SCH ×2 (08:08→20:29)
[2018-08-27] MEDS: ZINC SULFATE 220 MG CAP PO SCH (08:09)
--- NOTE | 2018-08-27 08:25 | P.PN ---
Subjective Principal diagnosis: Foot gangrene. The patient's postoperative day #2 amputation of the distal aspect of the foot. The patient is doing quite well. Pain is fairly well controlled. No sniffing nausea or vomiting. Appetite seems to be tolerated. Objective - Vital Signs Vital signs: Vital Signs Temp 97.7 F 08/27/18 04:10 Pulse 64 08/27/18 04:10 Resp 20 08/27/18 04:10 BP 97/56 08/27/18 04:10 Pulse Ox 95 08/27/18 04:10 Intake & Output 08/26/18 08/27/18 08/27/18 18:59 06:59 18:59 Intake Total 1100 2040 Output Total 900 1250 Balance 200 790 Intake: Intake, IV Titration 1100 1450 Amount Piperacillin-Tazobactam 3 100 100 .375 gm In Sodium Chloride 0.9% 100 ml @ 25 mls/hr IVPB Q8HR [facility] Rx# :[id number] Sodium Chloride 0.9% 1, 750 1100 000 ml @ 125 mls/hr IV . Q8H [facility] Rx#:[id number] Vancomycin 1,500 mg In 250 250 Sodium Chloride 0.9% 250 ml @ 125 mls/hr IVPB Q8H [facility] Rx#:[id number] Oral 590 Output: Urine 900 1250 Other: Voiding Method Toilet Toilet # Voids 1 - Constitutional General appearance: Present: average body habitus - EENT Eyes: Absent: abnormal pupil - Neck Neck: Absent: lymphadenopathy - Respiratory Respiratory: bilateral: CTA - Cardiovascular Rhythm: regular Heart sounds: normal: S1, S2 Abnormal Heart Sounds: Absent: S3 Gallop - Gastrointestinal General gastrointestinal: Present: soft. Absent: tenderness - Psychiatric Psychiatric: Present: A&O x's 3, intact judgment & insight - Labs CBC & Chem 7: 08/26/18 09:09 08/26/18 09:09 Labs: Abnormal Lab Results - Last 24 Hours (Table) 08/26/18 08/26/18 Range/Units 09: 09:09 WBC 12.4 H (3.8-10.6) k/uL RBC 3.74 L (4.30-5.90) m/uL Hgb 10.1 L (13.0-17.5) gm/dL Hct 32.7 L (39.0-53.0) % MCHC 30.8 L (31.0-37.0) g/dL Neutrophils # 10.4 H (1.3-7.7) k/uL Carbon Dioxide 32 H (22-30) mmol/L BUN 8 L (9-20) mg/dL Glucose 100 H (74-99) mg/dL Calcium 7.2 L (8.4-10.2) mg/dL ALT 10 L (21-72) U/L Total Protein 5.5 L (6.3-8.2) g/dL Albumin 2.4 L (3.5-5.0) g/dL Microbiology - Last 24 Hours (Table) 08/24/18 21:00 Gram Stain - Final Foot - Left Wound Culture - Final Methicillin resist S. aureus Pseudomonas aeruginosa Citrobacter farmeri 08/24/18 13:25 Blood Culture - Preliminary Blood No Growth after 48 hours Assessment and Plan (1) Gangrene of left foot Current Visit: Yes Status: Acute Code(s): I96 - GANGRENE, NOT ELSEWHERE CLASSIFIED SNOMED Code(s): 69248231749352261 (2) COPD (chronic obstructive pulmonary disease) Current Visit: Yes Status: Acute Code(s): J44.9 - CHRONIC OBSTRUCTIVE PULMONARY DISEASE, UNSPECIFIED SNOMED Code(s): 36924128 (3) Hypoxemia Current Visit: No Status: Acute Code(s): R09.02 - HYPOXEMIA SNOMED Code(s): 344802021 (4) Peripheral vascular disease Current Visit: No Status: Acute Code(s): I73.9 - PERIPHERAL VASCULAR DISEASE, UNSPECIFIED SNOMED Code(s): 686183698 Plan: The patient is stabilizing. Case management for discharge plan. Check CBC and CMP in a.m. Continue with appropriate pain control.
[2018-08-27] MEDS ORDERED: VANCOMYCIN TROUGH DUE 1 EACH MISC MISCELLANE ONE (09:00)
[2018-08-27 09:38] LABS: HCT 32.1 % (39.0-53.0); HGB 10.2 gm/dL (13.0-17.5); Hypochromasia Moderate; MCH 27.3 pg (25.0-35.0); MCHC 31.7 g/dL (31.0-37.0); MCV 86.2 fL (80.0-100.0); Mean Platelet Volume 7.2; Platelet Count 412 k/uL (150-450); RBC 3.72 m/uL (4.30-5.90); RDW 15.7 % (11.5-15.5); WBC 9.2 k/uL (3.8-10.6)
[2018-08-27 09:50] LABS: ALT 22 U/L (21-72); AST 35 U/L (17-59); African American GFR (CKD) >90 (>60 ml/min/1.73 sqM); Albumin 2.2 g/dL (3.5-5.0); Alkaline Phosphatase 91 U/L (38-126); Anion Gap 2 mmol/L; Blood Urea Nitrogen 10 mg/dL (9-20); Calcium 7.2 mg/dL (8.4-10.2); Carbon Dioxide 36 mmol/L (22-30); Chloride 104 mmol/L (98-107); Glucose 81 mg/dL (74-99); Potassium 3.6 mmol/L (3.5-5.1); Sodium 142 mmol/L (137-145); Total Bilirubin 0.2 mg/dL (0.2-1.3); Total Protein 5.2 g/dL (6.3-8.2)
[2018-08-27] MEDS: ACETAMINOPHEN TAB 325 MG TAB PO PRN (20:28)
[2018-08-28] MEDS: MORPHINE SULFATE 4 MG/ML SYRINGE IVP PRN ×2 (04:04→08:44)
[2018-08-28] MEDS: SODIUM CHLORIDE 0.9% 1,000 ML IV SCH ×3 (05:48→21:31)
[2018-08-28] MEDS: VANCOMYCIN 1,500 MG in SODIUM CHLORIDE 0.9% 250 ML IVPB SCH ×2 (05:48→17:14)
[2018-08-28] MEDS: DIAZEPAM 5 MG TAB PO SCH ×2 (08:38→21:32)
[2018-08-28] MEDS: NICOTINE 21MG/24HR PATCH TRANSDERM SCH (08:38)
[2018-08-28] MEDS: MAGNESIUM OXIDE 400 MG TAB PO SCH ×2 (08:39→21:31)
[2018-08-28] MEDS: PANTOPRAZOLE 40 MG TABLET PO SCH (08:39)
[2018-08-28] MEDS: COLCHICIN-PROBENECID 0.5-500MG 1 EACH TAB PO SCH ×2 (08:39→21:32)
[2018-08-28] MEDS: ZINC SULFATE 220 MG CAP PO SCH (08:39)
[2018-08-28] MEDS: METOPROLOL TARTRATE 25 MG TAB PO SCH (08:39)
[2018-08-28] MEDS: PIPERACILLIN-TAZOBACTAM 3.375 GM in SODIUM CHLORIDE 0.9% 100 ML IVPB SCH ×3 (08:39→23:36)
[2018-08-28 09:07] LABS: HCT 33.6 % (39.0-53.0); HGB 10.5 gm/dL (13.0-17.5); Hypochromasia Slight; MCH 27.4 pg (25.0-35.0); MCHC 31.1 g/dL (31.0-37.0); MCV 88.1 fL (80.0-100.0); Platelet Count 459 k/uL (150-450); RBC 3.82 m/uL (4.30-5.90); RDW 15.7 % (11.5-15.5); WBC 8.7 k/uL (3.8-10.6)
[2018-08-28 09:28] LABS: ALT 29 U/L (21-72); AST 36 U/L (17-59); African American GFR (CKD) >90 (>60 ml/min/1.73 sqM); Albumin 2.2 g/dL (3.5-5.0); Alkaline Phosphatase 106 U/L (38-126); Anion Gap 4 mmol/L; Blood Urea Nitrogen 13 mg/dL (9-20); Calcium 7.3 mg/dL (8.4-10.2); Carbon Dioxide 37 mmol/L (22-30); Chloride 102 mmol/L (98-107); Glucose 65 mg/dL (74-99); Potassium 4.2 mmol/L (3.5-5.1); Sodium 143 mmol/L (137-145); Total Bilirubin 0.2 mg/dL (0.2-1.3); Total Protein 5.1 g/dL (6.3-8.2)
[2018-08-28 10:31] LABS: Glucose,Whole Blood 68 mg/dL (75-99)
[2018-08-28 10:54] LABS: Glucose,Whole Blood 65 mg/dL (75-99)
[2018-08-28 11:05] LABS: Glucose,Whole Blood 75 mg/dL (75-99)
--- NOTE | 2018-08-28 11:27 | CT ---
EXAMINATION TYPE: CT brain wo con DATE OF EXAM: 08/28/2018 COMPARISON: None HISTORY: 63-year-old male confusion, possible stroke, Altered mental status. TECHNIQUE: Examination was done in axial plane without intravenous contrast. Coronal and sagittal r econstructions performed. CT DLP: 1221.27 mGycm Automated exposure control for dose reduction was used. FINDINGS: There is no evidence of acute intracranial hemorrhage, acute ischemic changes, mass, mass-effect, or extra-axial fluid collection. There is no effacement of cerebral sulci or basal subarachnoid cister ns. There is no hydrocephalus. There is no midline shift. Guevara-white matter distinction is preserv ed. Minimal patchy periventricular white matter hypodensities. Very mild age-related generalized supraten torial volume loss. Partially into sella. Trace mucosal thickening within the maxillary sinuses and ethmoid air cells. Mastoid air cells well p neumatized. Orbits and globes are intact. IMPRESSION: No acute intracranial abnormality seen. If symptoms persist, follow-up CT or MRI.
[2018-08-28 11:37] LABS: Glucose,Whole Blood 81 mg/dL (75-99)
[2018-08-28] MEDS: DEXTROSE 50% SYRINGE 50 ML IVP ONE ×2 (11:49→11:52)
--- NOTE | 2018-08-28 11:54 | CT ---
EXAMINATION TYPE: CT angio head neck DATE OF EXAM: 08/28/2018 COMPARISON: Correlation CT brain same day HISTORY: Altered mental status. TECHNIQUE: Contiguous axial scanning of the brain and neck performed with IV Contrast, patient inject ed with 50 mL of Isovue 370. Coronal/sagittal MIP reconstructions performed. Reconstructions generate d on a dedicated independent workstation. CT DLP: 481.73 mGycm Automated exposure control for dose reduction was used. FINDINGS: Neck: Moderate centrilobular emphysema. There is some dependent groundglass in the lungs. Some scattered pa tchy density anterior left upper lobe on axial image 123 and 121. Conventional arch vessel branching anatomy. Scattered minimal atherosclerotic arch calcifications. Mild scattered atherosclerotic calcifications within the great vessels. Mild to moderate atherosclerotic calcifications of the bilateral bifurcations with mild, less than 25 % narrowing at the proximal right carotid bulb and approximately 30% narrowing at the level of the di stal carotid bulb secondary to eccentric calcification. The bilateral common carotid arteries are patent. [id number] atelectatic calcifications at the left bifurcation with mild, less than 25% narrowin g in the proximal left ICA. The bilateral vertebral arteries are patent. Left vertebral artery slightly more dominant. Head: Left vertebral artery is dominant. Vertebrobasilar arteries are patent Mild metastatic calcifications in the carotid siphons. Internal carotid arteries as well as the remai nder of the anterior circulation are patent. No significant stenosis or aneurysmal change is identified. IMPRESSION: 1. NECK: Atherosclerotic calcifications at the bilateral carotid bifurcations but with mild, less marlena n 30% stenosis at the bilateral proximal ICAs, right greater than left. 2. HEAD: Slightly dominant left vertebral artery. No large vessel intracranial arterial occlusion or aneurysmal change is seen. 3. COPD with moderate emphysema. Dependent groundglass in the lungs could represent atelectasis. Some additional patchy opacity left upper lobe. Correlate for any signs or symptoms of possible early inf iltrate.
[2018-08-28 12:00] LABS: Glucose,Whole Blood 92 mg/dL (75-99)
[2018-08-28 12:36] LABS: Basophils % (A) 1 %; Eosinophils # (A) 0.4 k/uL (0-0.7); Eosinophils % (A) 4 %; HCT 34.5 % (39.0-53.0); HGB 10.7 gm/dL (13.0-17.5); Lymphocytes # (A) 1.5 k/uL (1.0-4.8); Lymphocytes % (A) 16 %; MCHC 31.1 g/dL (31.0-37.0); MCV 86.9 fL (80.0-100.0); Mean Platelet Volume 7.5; Monocytes # (A) 0.7 k/uL (0-1.0); Monocytes % (A) 7 %; Neutrophils # (A) 6.7 k/uL (1.3-7.7); Neutrophils % (A) 72 %; Platelet Count 463 k/uL (150-450); RBC 3.97 m/uL (4.30-5.90); RDW 15.7 % (11.5-15.5); WBC 9.4 k/uL (3.8-10.6)
[2018-08-28 12:51] LABS: Prothrombin Time 10.6 sec (9.0-12.0)
[2018-08-28 13:13] LABS: ALT 28 U/L (21-72); AST 34 U/L (17-59); African American GFR (CKD) >90 (>60 ml/min/1.73 sqM); Albumin 2.3 g/dL (3.5-5.0); Alkaline Phosphatase 102 U/L (38-126); Anion Gap 4 mmol/L; Blood Urea Nitrogen 13 mg/dL (9-20); Calcium 7.4 mg/dL (8.4-10.2); Carbon Dioxide 35 mmol/L (22-30); Chloride 101 mmol/L (98-107); Glucose 136 mg/dL (74-99); Potassium 3.3 mmol/L (3.5-5.1); Sodium 140 mmol/L (137-145); Total Bilirubin 0.2 mg/dL (0.2-1.3); Total Protein 5.2 g/dL (6.3-8.2)
--- NOTE | 2018-08-28 16:28 | P.PN ---
Subjective Principal diagnosis: Foot gangrene. The patient's postoperative day #3 amputation of the distal aspect of the foot. The patient is doing quite well. Pain is fairly well controlled. No significant nausea or vomiting. Appetite seems to be tolerated. Objective - Vital Signs Vital signs: Vital Signs Temp 97.6 F 08/28/18 13:00 Pulse 62 08/28/18 13:00 Resp 17 08/28/18 13:00 BP 111/55 08/28/18 13:00 Pulse Ox 98 08/28/18 13:00 Intake & Output 08/27/18 08/28/18 08/28/18 18:59 06:59 18:59 Intake Total 1100 2230 Output Total 300 950 600 Balance 800 1280 -600 Intake: Intake, IV Titration 1100 1400 Amount IV Fluid Continuation 1, 1000 000 ml @ 0 mls/hr IV .[facility] Rx#:[id number] Piperacillin-Tazobactam 3 100 200 .375 gm In Sodium Chloride 0.9% 100 ml @ 25 mls/hr IVPB Q8HR [facility] Rx# :[id number] Sodium Chloride 0.9% 1, 1200 000 ml @ 125 mls/hr IV . Q8H [facility] Rx#:[id number] Oral 830 Output: Urine 300 950 600 Other: Voiding Method Toilet Urinal Urinal # Voids 2 # Bowel Movements 1 - Constitutional General appearance: Present: average body habitus - EENT Eyes: Absent: abnormal pupil - Neck Neck: Absent: lymphadenopathy - Respiratory Respiratory: bilateral: CTA - Cardiovascular Rhythm: regular Heart sounds: normal: S1, S2 Abnormal Heart Sounds: Absent: S3 Gallop - Gastrointestinal General gastrointestinal: Present: soft. Absent: tenderness - Integumentary Integumentary Comment(s): Wound VAC on foot. The wound does look nominal. Integumentary: Absent: cyanotic - Labs CBC & Chem 7: 08/28/18 12:18 08/28/18 12:18 Labs: Abnormal Lab Results - Last 24 Hours (Table) 08/28/18 08/28/18 08/28/18 Range/Units 07:40 07:40 10:10 RBC 3.82 L (4.30-5.90) m/uL Hgb 10.5 L (13.0-17.5) gm/dL Hct 33.6 L (39.0-53.0) % RDW 15.7 H (11.5-15.5) % Plt Count 459 H (150-450) k/uL Potassium (3.5-5.1) mmol/L Carbon Dioxide 37 H (22-30) mmol/L Glucose 65 L (74-99) mg/dL POC Glucose (mg/dL) 68 L (75-99) mg/dL Calcium 7.3 L (8.4-10.2) mg/dL Total Protein 5.1 L (6.3-8.2) g/dL Albumin 2.2 L (3.5-5.0) g/dL 08/28/18 08/28/18 08/28/18 Range/Units 10:50 12:18 12:18 RBC 3.97 L (4.30-5.90) m/uL Hgb 10.7 L (13.0-17.5) gm/dL Hct 34.5 L (39.0-53.0) % RDW 15.7 H (11.5-15.5) % Plt Count 463 H (150-450) k/uL Potassium 3.3 L (3.5-5.1) mmol/L Carbon Dioxide 35 H (22-30) mmol/L Glucose 136 H (74-99) mg/dL POC Glucose (mg/dL) 65 L (75-99) mg/dL Calcium 7.4 L (8.4-10.2) mg/dL Total Protein 5.2 L (6.3-8.2) g/dL Albumin 2.3 L (3.5-5.0) g/dL Microbiology - Last 24 Hours (Table) 08/24/18 13:25 Blood Culture - Preliminary Blood No Growth after 96 hours Assessment and Plan (1) Gangrene of left foot Current Visit: Yes Status: Acute Code(s): I96 - GANGRENE, NOT ELSEWHERE CLASSIFIED SNOMED Code(s): 88850323205994695 (2) COPD (chronic obstructive pulmonary disease) Current Visit: Yes Status: Acute Code(s): J44.9 - CHRONIC OBSTRUCTIVE PULMONARY DISEASE, UNSPECIFIED SNOMED Code(s): 44161962 (3) Hypoxemia Current Visit: No Status: Acute Code(s): R09.02 - HYPOXEMIA SNOMED Code(s): 942974474 (4) Peripheral vascular disease Current Visit: No Status: Acute Code(s): I73.9 - PERIPHERAL VASCULAR DISEASE, UNSPECIFIED SNOMED Code(s): 068576553 Plan: Continue current regimen of treatment. Check CBC and CMP in a.m. Dr. Recio's group will covering for the weekend. Case management for placement.
[2018-08-28] MEDS: MORPHINE SULFATE 2 MG/ML SYRINGE IVP PRN ×2 (17:15→21:09)
[2018-08-28] MEDS ORDERED: Potassium Replacement Protocol 1 EACH MISC MISCELLANE PRN (17:41)
[2018-08-28] MEDS: POTASSIUM CHLORIDE ER 20 MEQ TAB.ER PO SCH ×2 (18:12→19:40)
--- NOTE | 2018-08-28 23:05 | P.PN ---
Subjective Progress Note Date: 08/28/18 63-year-old male has multiple medical troubles including severe peripheral vascular disease and a history of gout. The patient has been following with the vascular surgeon as well as the wound healing Center regarding a nonhealing ulceration to his left foot. Due to gangrenous changes he did have amputation to the left great toe. An open ulceration continued and there was evidence of exposure of the first metatarsal. Local wound care was being utilized in the wound VAC was being attempted. The patient presented to the wound center today for further evaluation. The patient however is evidence of extensive gangrenous change of the foot was instructed emergency center at admission through his primary care physician. Opportunity of discussing the case with the Vascular surgeon occurred. Patient will need somewhat urgent surgical intervention likely with first a transmetatarsal open amputation potentially conversion to a [id number] amputation. The patient relates that things have not gone well for him over the last visit a time. His who is chronically ill has . He is not doing well overall he's lost about 50 pounds in is not taking good care of himself. 08/25/2018 the patient has now undergone his transmetatarsal amputation and is tolerating procedure at this time. Pain is well-controlled. Appetite is poor. He has had general overall decline in his status. Is having difficulty with urination have asked for a bladder scan 08/28/2018 bladder scan had greater than 800 mL of urine. The patient was straight cathed but does not appear to have ongoing difficulties with urinary retention. Is feeling well today and discharge planning is in progress, it has been related that he does not have home care option for IV antibiotics and basement to extended care in process. Objective - Vital Signs Vital signs: Vital Signs Temp 97.7 F 08/28/18 19:04 Pulse 96 08/28/18 19:04 Resp 22 08/28/18 19:04 BP 134/64 08/28/18 19:04 Pulse Ox 94 L 08/28/18 19:04 Intake & Output 08/28/18 08/28/18 08/29/18 06:59 18:59 06:59 Intake Total 2230 850 Output Total 950 2900 Balance 1280 -2050 Intake: Intake, IV Titration 1400 Amount Piperacillin-Tazobactam 3 200 .375 gm In Sodium Chloride 0.9% 100 ml @ 25 mls/hr IVPB Q8HR [facility] Rx# :[id number] Sodium Chloride 0.9% 1, 1200 000 ml @ 125 mls/hr IV . Q8H [facility] Rx#:[id number] Oral 830 850 Output: Urine 950 2900 Other: Voiding Method Urinal Urinal # Voids 2 # Bowel Movements 1 1 - Exam 63-year-old male who has evidence of significant weight loss since his last evaluation. HEENT: Anicteric conjunctiva are pink and moist nasal mucosa grossly intact without significant lesions, there is no thrush. Neck: The neck is supple without significant lymphadenopathy or thyromegaly. Lungs: Symmetrical air entry is noted, expiratory wheezes are scattered no elin bronchial sounds in all dullness or egophony Heart: Regular rate and rhythm with an audible S1-S2, no S3 no S4. There is no significant murmur click or rub, PMI was nondisplaced. Abdomen: Positive bowel sounds soft and nontender without palpable masses or organomegaly. There was no guarding or rebound. Extremities: The upper extremities have excellent pulses they are symmetric, no significant petechiae or telangiectasia. No splinter hemorrhages were noted. The right lower extremity reveals no acute lesions at this time. The left foot reveals evidence of the recent surgical intervention with a transmetatarsal amputation wound VAC is in place. There is some surrounding erythema to the foot there is however not an extensive amount of ascending lymphangitis. Improved lymphadenopathy to the left groin. The foot is somewhat warm to palpation Neuro: Awake alert oriented to person place and time. There are no acute new gross focal sensory motor deficits. - Labs CBC & Chem 7: 08/28/18 12:18 08/28/18 21:20 Labs: Abnormal Lab Results - Last 24 Hours (Table) 08/28/18 08/28/18 08/28/18 Range/Units 07:40 07:40 10:10 RBC 3.82 L (4.30-5.90) m/uL Hgb 10.5 L (13.0-17.5) gm/dL Hct 33.6 L (39.0-53.0) % RDW 15.7 H (11.5-15.5) % Plt Count 459 H (150-450) k/uL Potassium (3.5-5.1) mmol/L Carbon Dioxide 37 H (22-30) mmol/L Glucose 65 L (74-99) mg/dL POC Glucose (mg/dL) 68 L (75-99) mg/dL Calcium 7.3 L (8.4-10.2) mg/dL Total Protein 5.1 L (6.3-8.2) g/dL Albumin 2.2 L (3.5-5.0) g/dL 08/28/18 08/28/18 08/28/18 Range/Units 10:50 12:18 12:18 RBC 3.97 L (4.30-5.90) m/uL Hgb 10.7 L (13.0-17.5) gm/dL Hct 34.5 L (39.0-53.0) % RDW 15.7 H (11.5-15.5) % Plt Count 463 H (150-450) k/uL Potassium 3.3 L (3.5-5.1) mmol/L Carbon Dioxide 35 H (22-30) mmol/L Glucose 136 H (74-99) mg/dL POC Glucose (mg/dL) 65 L (75-99) mg/dL Calcium 7.4 L (8.4-10.2) mg/dL Total Protein 5.2 L (6.3-8.2) g/dL Albumin 2.3 L (3.5-5.0) g/dL Microbiology - Last 24 Hours (Table) 08/24/18 13:25 Blood Culture - Preliminary Blood No Growth after 96 hours Laboratory Results WBC 9.4 k/uL (3.8-10.6) 08/28/18 12:18 RBC 3.97 m/uL (4.30-5.90) L 08/28/18 12:18 Hgb 10.7 gm/dL (13.0-17.5) L 08/28/18 12:18 Hct 34.5 % (39.0-53.0) L 08/28/18 12:18 MCV 86.9 fL (80.0-100.0) 08/28/18 12:18 MCH 27.0 pg (25.0-35.0) 08/28/18 12:18 MCHC 31.1 g/dL (31.0-37.0) 08/28/18 12:18 RDW 15.7 % (11.5-15.5) H 08/28/18 12:18 Plt Count 463 k/uL (150-450) H 08/28/18 12:18 Neutrophils % 72 % 08/28/18 12:18 Lymphocytes % 16 % 08/28/18 12:18 Monocytes % 7 % 08/28/18 12:18 Eosinophils % 4 % 08/28/18 12:18 Basophils % 1 % 08/28/18 12:18 Neutrophils # 6.7 k/uL (1.3-7.7) 08/28/18 12:18 Lymphocytes # 1.5 k/uL (1.0-4.8) 08/28/18 12:18 Monocytes # 0.7 k/uL (0-1.0) 08/28/18 12:18 Eosinophils # 0.4 k/uL (0-0.7) 08/28/18 12:18 Basophils # 0.0 k/uL (0-0.2) 08/28/18 12:18 Hypochromasia Slight 08/28/18 07:40 PT 10.6 sec (9.0-12.0) 08/28/18 12:18 INR 1.0 (<1.2) 08/28/18 12:18 APTT 29.0 sec (22.0-30.0) 08/28/18 12:18 Sodium 140 mmol/L (137-145) 08/28/18 12:18 Potassium 3.8 mmol/L (3.5-5.1) 08/28/18 21:20 Chloride 101 mmol/L (98-107) 08/28/18 12:18 Carbon Dioxide 35 mmol/L (22-30) H 08/28/18 12:18 Anion Gap 4 mmol/L 08/28/18 12:18 BUN 13 mg/dL (9-20) 08/28/18 12:18 Creatinine 0.78 mg/dL (0.66-1.25) 08/28/18 12:18 Est GFR (CKD-EPI)AfAm >90 (>60 ml/min/1.73 sqM) 08/28/18 12:18 Est GFR (CKD-EPI)NonAf >90 (>60 ml/min/1.73 sqM) 08/28/18 12:18 Glucose 136 mg/dL (74-99) H 08/28/18 12:18 POC Glucose (mg/dL) 92 mg/dL (75-99) 08/28/18 11:40 POC Glu Projects Manager ID Lorna Landers 08/28/18 11:40 Plasma Lactic Acid [place] 1.5 mmol/L (0.7-2.0) 08/24/18 13:25 Calcium 7.4 mg/dL (8.4-10.2) L 08/28/18 12:18 Total Bilirubin 0.2 mg/dL (0.2-1.3) 08/28/18 12:18 AST 34 U/L (17-59) 08/28/18 12:18 ALT 28 U/L (21-72) 08/28/18 12:18 Alkaline Phosphatase 102 U/L (38-126) 08/28/18 12:18 Troponin I 0.014 ng/mL (0.000-0.034) 08/28/18 12:18 Total Protein 5.2 g/dL (6.3-8.2) L 08/28/18 12:18 Albumin 2.3 g/dL (3.5-5.0) L 08/28/18 12:18 Urine Color Yellow 08/24/18 21:50 Urine Appearance Clear (Clear) 08/24/18 21:50 Urine pH 6.0 (5.0-8.0) 08/24/18 21:50 Ur Specific [place] 1.023 (1.001-1.035) 08/24/18 21:50 Urine Protein Trace (Negative) H 08/24/18 21:50 Urine Glucose (UA) Negative (Negative) 08/24/18 21:50 Urine Ketones Negative (Negative) 08/24/18 21:50 Urine Blood Negative (Negative) 08/24/18 21:50 Urine Nitrite Negative (Negative) 08/24/18 21:50 Urine Bilirubin Negative (Negative) 08/24/18 21:50 Urine Urobilinogen <2.0 mg/dL (<2.0) 08/24/18 21:50 Ur Leukocyte Esterase Negative (Negative) 08/24/18 21:50 Vancomycin Trough 28.9 ug/mL 08/27/18 08:49 Microbiology 08/24/18 13:25 Blood Blood Culture - Preliminary No Growth after 96 hours 08/24/18 21:00 Foot - Left Gram Stain - Final 08/24/18 21:00 Foot - Left Wound Culture - Final Methicillin resist S. aureus Pseudomonas aeruginosa Citrobacter farmeri 08/24/18 21:50 Urine,Voided Urine Culture - Final Assessment and Plan (1) Gangrene of left foot Narrative/Plan: 63-year-old male with multiple medical troubles that include severe peripheral vascular disease status post multiple interventions was not developed evidence of a wet gangrenous process of the left foot at the prior amputation site but specifically to the base the second and third toes with the liquefication of the tissue occurring at this time. The case is discussed with the vascular surgeon in urgent intervention is being planned with a transmetatarsal amputation which would be open to hopefully allow some healing of the site. If this is possibly with intra-abdominal wound healing center afterwards. However the patient may have too much destruction of the foot may have too much ascending infection may require a below the knee amputation possibly with a first step of the disarticulation of the foot and ankle and then antibiotic therapy and then proceeding to BKA in the near future. Based on culture Zosyn is utilized for now local wound care is just a dry dressing. Patient is educated and aware of the current significance of this infectious process. 08/25/2018 the patient is now status post a transmetatarsal amputation. Zosyn has been begun however now laboratories relating that likely MRSA is also occurring with multiple gram-negative bacilli. Will initiate vancomycin therapy in addition to the Zosyn for now. Wound VAC is being utilized. We'll likely need to go to rehabilitation to receive local wound care, nutritional care, intravenous antibiotic therapy for this complex wound. After discharge he will follow with the wound center. 08/28/2018 patient continues to improve status post a transmetatarsal amputation. Wound VAC has been changed without great difficulties. Plan at this point in time will be transferred to extended care to receive wound care, and intravenous antibiotic therapy with intent of foot salvage. Antibiotic therapy with vancomycin and Zosyn are planned given the polymicrobial infection that was found with MRSA and Pseudomonas. 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
[2018-08-29] MEDS: MORPHINE SULFATE 2 MG/ML SYRINGE IVP PRN ×2 (01:25→10:09)
[2018-08-29 02:33] LABS: Glucose,Whole Blood 99 mg/dL (75-99)
[2018-08-29] MEDS ORDERED: VANCOMYCIN TROUGH DUE 1 EACH MISC MISCELLANE ONE (05:00)
[2018-08-29] MEDS: SODIUM CHLORIDE 0.9% 1,000 ML IV SCH ×2 (05:27→16:46)
[2018-08-29 06:13] LABS: Anisocytosis Slight; HCT 34.5 % (39.0-53.0); HGB 10.9 gm/dL (13.0-17.5); Hypochromasia Slight; MCH 27.1 pg (25.0-35.0); MCHC 31.7 g/dL (31.0-37.0); MCV 85.5 fL (80.0-100.0); Mean Platelet Volume 7.3; Platelet Count 432 k/uL (150-450); RBC 4.04 m/uL (4.30-5.90); RDW 16.5 % (11.5-15.5); WBC 10.2 k/uL (3.8-10.6)
[2018-08-29] MEDS: VANCOMYCIN 1,500 MG in SODIUM CHLORIDE 0.9% 250 ML IVPB SCH ×2 (06:15→21:19)
[2018-08-29 06:37] LABS: ALT 26 U/L (21-72); AST 30 U/L (17-59); African American GFR (CKD) >90 (>60 ml/min/1.73 sqM); Albumin 2.3 g/dL (3.5-5.0); Alkaline Phosphatase 110 U/L (38-126); Anion Gap 2 mmol/L; Blood Urea Nitrogen 15 mg/dL (9-20); Calcium 7.5 mg/dL (8.4-10.2); Carbon Dioxide 35 mmol/L (22-30); Chloride 102 mmol/L (98-107); Glucose 74 mg/dL (74-99); Potassium 4.4 mmol/L (3.5-5.1); Sodium 139 mmol/L (137-145); Total Bilirubin 0.2 mg/dL (0.2-1.3); Total Protein 5.3 g/dL (6.3-8.2)
[2018-08-29] MEDS: ACETAMINOPHEN TAB 325 MG TAB PO PRN ×2 (08:10→14:04)
[2018-08-29] MEDS: NICOTINE 21MG/24HR PATCH TRANSDERM SCH (08:11)
[2018-08-29] MEDS: DIAZEPAM 5 MG TAB PO SCH (08:11)
[2018-08-29] MEDS: PANTOPRAZOLE 40 MG TABLET PO SCH (08:11)
[2018-08-29] MEDS: COLCHICIN-PROBENECID 0.5-500MG 1 EACH TAB PO SCH ×2 (08:11→21:15)
[2018-08-29] MEDS: PIPERACILLIN-TAZOBACTAM 3.375 GM in SODIUM CHLORIDE 0.9% 100 ML IVPB SCH ×2 (08:11→16:40)
[2018-08-29] MEDS: MAGNESIUM OXIDE 400 MG TAB PO SCH ×2 (08:12→21:15)
[2018-08-29] MEDS: ZINC SULFATE 220 MG CAP PO SCH (08:12)
[2018-08-29] MEDS: METOPROLOL TARTRATE 25 MG TAB PO SCH (08:12)
--- NOTE | 2018-08-29 12:26 | P.PN ---
Subjective 63-year-old admitted because of gangrene of the"and patient is a wound VAC in place and patient is on broad-spectrum antibiotics and patient apparently need to be discharged on IV antibiotics. Patient is presently on Vanco mycin Zosyn. Patient will need a PICC line which can be done on Friday and possibly will be discharged on Friday to subacute rehabilitation.patient is to status post transmetatarsal amputation the left foot. Cultures has MRSA bacteria. Patient is bit lethargic today because of whichI'm discontinuing the morphine which I believe is contributing to his symptoms and diazepam. Patient will be started on Toradol for pain patient is not ALLERGIC to that patient kidney function is good. unable to obtain any review of systems as patient is bit lethargic All inpatient medications were reviewed and appropriate changes in these medications as dictated in the interval history and assessment and plan. Objective - Vital Signs Vital signs: Vital Signs Temp 97.7 F 08/28/18 19:04 Pulse 62 08/29/18 05:00 Resp 18 08/29/18 05:00 BP 102/55 08/29/18 05:00 Pulse Ox 95 08/29/18 05:00 Intake & Output 08/28/18 08/29/18 08/29/18 18:59 06:59 18:59 Intake Total 850 1840 Output Total 2900 1200 Balance -205 640 Intake: Intake, IV Titration 1600 Amount Piperacillin-Tazobactam 3 100 .375 gm In Sodium Chloride 0.9% 100 ml @ 25 mls/hr IVPB Q8HR [facility] Rx# :[id number] Sodium Chloride 0.9% 1, 1500 000 ml @ 125 mls/hr IV . Q8H [facility] Rx#:[id number] Oral 850 240 Output: Urine 2900 1200 Other: Voiding Method Urinal Urinal # Bowel Movements 1 - Exam PHYSICAL EXAMINATION: GENERAL: she is bit lethargic as mentioned above. HEENT: Pupils are round and equally reacting to light. EOMI. No scleral icterus. No conjunctival pallor. Normocephalic, atraumatic. No pharyngeal erythema. No thyromegaly. CARDIOVASCULAR: S1 and S2 present. No murmurs, rubs, or gallops. PULMONARY: Chest is clear to auscultation, no wheezing or crackles. ABDOMEN: Soft, nontender, nondistended, normoactive bowel sounds. No palpable organomegaly. MUSCULOSKELETAL: No joint swelling or deformity.and has a wound VAC to the left foot patient has left TMA EXTREMITIES: No cyanosis, clubbing, or pedal edema. NEUROLOGICAL: Gross neurological examination did not reveal any focal deficits. SKIN: No rashes. - Labs CBC & Chem 7: 08/29/18 05:36 08/29/18 05:36 Labs: Abnormal Lab Results - Last 24 Hours (Table) 08/28/18 08/28/18 08/29/18 Range/Units 12:18 12:18 05:36 RBC 3.97 L (4.30-5.90) m/uL Hgb 10.7 L (13.0-17.5) gm/dL Hct 34.5 L (39.0-53.0) % RDW 15.7 H (11.5-15.5) % Plt Count 463 H (150-450) k/uL Potassium 3.3 L (3.5-5.1) mmol/L Carbon Dioxide 35 H 35 H (22-30) mmol/L Glucose 136 H (74-99) mg/dL Calcium 7.4 L 7.5 L (8.4-10.2) mg/dL Total Protein 5.2 L 5.3 L (6.3-8.2) g/dL Albumin 2.3 L 2.3 L (3.5-5.0) g/dL 08/29/18 Range/Units 05:36 RBC 4.04 L (4.30-5.90) m/uL Hgb 10.9 L (13.0-17.5) gm/dL Hct 34.5 L (39.0-53.0) % RDW 16.5 H (11.5-15.5) % Plt Count (150-450) k/uL Potassium (3.5-5.1) mmol/L Carbon Dioxide (22-30) mmol/L Glucose (74-99) mg/dL Calcium (8.4-10.2) mg/dL Total Protein (6.3-8.2) g/dL Albumin (3.5-5.0) g/dL Microbiology - Last 24 Hours (Table) 08/24/18 13:25 Blood Culture - Preliminary Blood No Growth after 96 hours Assessment and Plan Plan: -gangrene of the left foot status post or TMA patient on broad-spectrum antibiotics patient has MRSA in the wound cultures. Will be discharged on Friday with a PICC line and IV antibiotics to subacute rehabilitation. -lethargic: Secondary to above-mentioned reasons. -COPD without any acute exacerbation -History of DVT in the past -Severe peripheral vascular disease -Osteoarthritis -patient will need DVT prophylaxis patient was started on due to prophylaxis patient is not an anticoagulation for previous DVT in the past For above-mentioned chronic medical problems patient will be continued on present medications
[2018-08-29] MEDS: HEPARIN SODIUM,PORCINE 5,000 UNIT/ML 1 ML VIAL SQ SCH (16:40)
[2018-08-30] MEDS: HEPARIN SODIUM,PORCINE 5,000 UNIT/ML 1 ML VIAL SQ SCH ×4 (00:24→23:48)
[2018-08-30] MEDS: PIPERACILLIN-TAZOBACTAM 3.375 GM in SODIUM CHLORIDE 0.9% 100 ML IVPB SCH ×4 (00:24→23:48)
[2018-08-30] MEDS: SODIUM CHLORIDE 0.9% 1,000 ML IV SCH ×2 (03:17→19:22)
[2018-08-30 08:01] LABS: African American GFR (CKD) >90 (>60 ml/min/1.73 sqM)
[2018-08-30] MEDS: PANTOPRAZOLE 40 MG TABLET PO SCH (09:03)
[2018-08-30] MEDS: MAGNESIUM OXIDE 400 MG TAB PO SCH ×2 (09:03→21:41)
[2018-08-30] MEDS: NICOTINE 21MG/24HR PATCH TRANSDERM SCH (09:03)
[2018-08-30] MEDS: METOPROLOL TARTRATE 25 MG TAB PO SCH (09:04)
[2018-08-30] MEDS: ZINC SULFATE 220 MG CAP PO SCH (09:04)
[2018-08-30] MEDS: COLCHICIN-PROBENECID 0.5-500MG 1 EACH TAB PO SCH ×2 (09:04→21:41)
[2018-08-30] MEDS: KETOROLAC 30 MG/ML 1 ML VIAL IVP PRN (09:13)
[2018-08-30 13:10] VITALS: RESP 18
--- NOTE | 2018-08-30 15:02 | P.PN ---
Subjective 63-year-old admitted because of gangrene of the"and patient is a wound VAC in place and patient is on broad-spectrum antibiotics and patient apparently need to be discharged on IV antibiotics. Patient is presently on Vanco mycin Zosyn. Patient will need a PICC line which can be done on Friday and possibly will be discharged on Friday to subacute rehabilitation.patient is to status post transmetatarsal amputation the left foot. Cultures has MRSA bacteria. Patient is bit lethargic today because of whichI'm discontinuing the morphine which I believe is contributing to his symptoms and diazepam. Patient will be started on Toradol for pain patient is not ALLERGIC to that patient kidney function is good. 08/20/2018 No overnight events patient is much less lethargic Constitutional: Denied any fatigue denied any fever. Cardio vascular: denied any chest pain, palpitations Gastrointestinal denied any nausea vomiting Pulmonary: Denied any shortness of breath cough Neurologic denied any new focal deficits All inpatient medications were reviewed and appropriate changes in these medications as dictated in the interval history and assessment and plan. Objective - Vital Signs Vital signs: Vital Signs Temp 97.7 F 08/30/18 13:09 Pulse 62 08/30/18 13:09 Resp 18 08/30/18 13:09 BP 115/58 08/30/18 13:09 Pulse Ox 95 08/30/18 13:09 Intake & Output 08/29/18 08/30/18 08/30/18 18:59 06:59 18:59 Intake Total 100 2030 Output Total 2 1800 Balance 98 230 Weight 81.647 kg Intake: Intake, IV Titration 100 1250 Amount Piperacillin-Tazobactam 3 100 100 .375 gm In Sodium Chloride 0.9% 100 ml @ 25 mls/hr IVPB Q8HR [facility] Rx# :[id number] Sodium Chloride 0.9% 1, 900 000 ml @ 75 mls/hr IV . [id number] [facility] Rx#:[id number] Vancomycin 1,500 mg In 250 Sodium Chloride 0.9% 250 ml @ 125 mls/hr IVPB Q12H [facility] Rx#:[id number] Oral 780 Output: Urine 1800 Stool 2 Other: Voiding Method Urinal # Voids 2 2 # Bowel Movements 2 - Exam PHYSICAL EXAMINATION: GENERAL: Alert oriented 3 not in acute distress HEENT: Pupils are round and equally reacting to light. EOMI. No scleral icterus. No conjunctival pallor. Normocephalic, atraumatic. No pharyngeal erythema. No thyromegaly. CARDIOVASCULAR: S1 and S2 present. No murmurs, rubs, or gallops. PULMONARY: Chest is clear to auscultation, no wheezing or crackles. ABDOMEN: Soft, nontender, nondistended, normoactive bowel sounds. No palpable organomegaly. MUSCULOSKELETAL: No joint swelling or deformity.and has a wound VAC to the left foot patient has left TMA EXTREMITIES: No cyanosis, clubbing, or pedal edema. NEUROLOGICAL: Gross neurological examination did not reveal any focal deficits. SKIN: No rashes. - Labs CBC & Chem 7: 08/29/18 05:36 08/30/18 07:06 Labs: Microbiology - Last 24 Hours (Table) 08/24/18 13:25 Blood Culture - Preliminary Blood No Growth after 120 hours Assessment and Plan Plan: -gangrene of the left foot status post or TMA patient on broad-spectrum antibiotics patient has MRSA in the wound cultures. Will be discharged on Friday with a PICC line and IV antibiotics to subacute rehabilitation. -lethargic: Secondary to above-mentioned reasons. -COPD without any acute exacerbation -History of DVT in the past -Severe peripheral vascular disease -Osteoarthritis -patient will need DVT prophylaxis patient was started on due to prophylaxis patient is not an anticoagulation for previous DVT in the past For above-mentioned chronic medical problems patient will be continued on present medications
[2018-08-30] MEDS: DIPHENOX-ATROP 2.5-0.025 MG 1 EACH TAB PO PRN ×2 (15:30→21:41)
[2018-08-30] MEDS: VANCOMYCIN 1,500 MG in SODIUM CHLORIDE 0.9% 250 ML IVPB SCH (15:30)
[2018-08-30] MEDS: ACETAMINOPHEN TAB 325 MG TAB PO PRN (23:51)
[2018-08-31] MEDS: KETOROLAC 30 MG/ML 1 ML VIAL IVP PRN ×2 (04:06→09:29)
[2018-08-31] MEDS: SODIUM CHLORIDE 0.9% 1,000 ML IV SCH (04:10)
[2018-08-31] MEDS ORDERED: VANCOMYCIN TROUGH DUE 1 EACH MISC MISCELLANE ONE (05:00)
[2018-08-31] MEDS: VANCOMYCIN 1,500 MG in SODIUM CHLORIDE 0.9% 250 ML IVPB SCH (05:53)
[2018-08-31] MEDS: HEPARIN SODIUM,PORCINE 5,000 UNIT/ML 1 ML VIAL SQ SCH (08:08)
[2018-08-31] MEDS: PIPERACILLIN-TAZOBACTAM 3.375 GM in SODIUM CHLORIDE 0.9% 100 ML IVPB SCH (08:12)
[2018-08-31] MEDS: COLCHICIN-PROBENECID 0.5-500MG 1 EACH TAB PO SCH (08:13)
[2018-08-31] MEDS: NICOTINE 21MG/24HR PATCH TRANSDERM SCH (08:13)
[2018-08-31] MEDS: ZINC SULFATE 220 MG CAP PO SCH (08:13)
[2018-08-31] MEDS: PANTOPRAZOLE 40 MG TABLET PO SCH (08:13)
[2018-08-31] MEDS: METOPROLOL TARTRATE 25 MG TAB PO SCH (08:13)
[2018-08-31] MEDS: MAGNESIUM OXIDE 400 MG TAB PO SCH (08:13)
[2018-08-31 12:30] VITALS: BP 128/71; PULSE 67; TEMP 97.6
--- NOTE | 2018-08-31 12:52 | P.DS ---
Providers Date of admission: 08/24/18 13:13 Attending physician: Malik Bui Consults: 08/24/18 13:14 Consult Physician Urgent Consulting Provider: Tevin Morel Consult Reason/Comments: Gangrene left foot Do you want consulting provider notified?: Yes 08/24/18 13:15 Consult Physician Urgent Consulting Provider: Lucas Arellano Consult Reason/Comments: Gangrene left foot Do you want consulting provider notified?: Already Contacted Primary care physician: Malik Bui - Discharge Diagnosis(es) (1) Gangrene of left foot Current Visit: Yes Status: Acute (2) COPD (chronic obstructive pulmonary disease) Current Visit: Yes Status: Acute (3) Hypoxemia Current Visit: No Status: Acute (4) Peripheral vascular disease Current Visit: No Status: Acute Hospital Course: This is a discharge summary on a 63-year-old white male essentially admitted for gangrene of the foot. In the timing amputation with appropriate wound control. He will be discharged to ECF for long-term antibiotic therapy once PICC line is inserted. The patient's prognosis is guarded secondary to his multiple comorbidities. Patient Condition at Discharge: Serious Plan - Discharge Summary Discharge Rx Participant: Yes New Discharge Prescriptions: New Vancomycin 1,500 mg IVPB Q12H #84 vial Piperacillin-Tazobactam [Zosyn] 3.375 gm IVPB Q8HR #126 vial Diphenox-Atrop 2.5-0.025 mg [Lomotil] 1 each PO Q6HR PRN #40 tab PRN Reason: Diarrhea Continue Metoprolol Tartrate 25 mg PO DAILY Probenecid/Colchicine [Probenecid-Colchicine Tabs] 1 tab PO BID Nicotine 21Mg/24Hr Patch [Habitrol] 1 patch TRANSDERM DAILY #30 patch Zinc 50 mg PO DAILY Diazepam [Valium] 10 mg PO BID Omeprazole 20 mg PO DAILY Naproxen 500 mg PO BID Warfarin Sodium [Coumadin] 2 mg PO DAILY Magnesium 200 mg PO BID HYDROcodone/APAP 7.5-325MG [[place] 7.5-325] 1 tab PO Q6HR PRN #120 tab PRN Reason: Pain Discharge Medication List Metoprolol Tartrate 25 mg PO DAILY 12/15/14 [History] Probenecid/Colchicine [Probenecid-Colchicine Tabs] 1 tab PO BID 07/05/18 [History] Nicotine 21Mg/24Hr Patch [Habitrol] 1 patch TRANSDERM DAILY #30 patch 07/15/18 [Rx] Diazepam [Valium] 10 mg PO BID 08/24/18 [History] Magnesium 200 mg PO BID 08/24/18 [History] Naproxen 500 mg PO BID 08/24/18 [History] Omeprazole 20 mg PO DAILY 08/24/18 [History] Warfarin Sodium [Coumadin] 2 mg PO DAILY 08/24/18 [History] Zinc 50 mg PO DAILY 08/24/18 [History] Piperacillin-Tazobactam [Zosyn] 3.375 gm IVPB Q8HR #126 vial 08/28/18 [Rx] Vancomycin 1,500 mg IVPB Q12H #84 vial 08/28/18 [Rx] Diphenox-Atrop 2.5-0.025 mg [Lomotil] 1 each PO Q6HR PRN #40 tab 08/31/18 [Rx] HYDROcodone/APAP 7.5-325MG [[place] 7.5-325] 1 tab PO Q6HR PRN #120 tab 08/31/18 [Rx] Follow up Appointment(s)/Referral(s): Lucas Arellano MD [STAFF PHYSICIAN] - 3 Weeks Tevin Morel DO [STAFF PHYSICIAN] - 1 Week Malik Bui MD [Primary Care Provider] - 1-2 days [facility], [NON-STAFF] - 1 Week [facility], [REFERRING] - 1 Week Ambulatory/Diagnostic Orders: Basic Metabolic Panel [LAB.AMB] Location: None Selected C Reactive Protein [LAB.AMB] Location: None Selected Complete Blood Count w/diff [LAB.AMB] Location: None Selected Erythrocyte Sedimentation Rate [LAB.AMB] Location: None Selected Vancomycin,Trough [LAB.AMB] Location: None Selected Activity/Diet/Wound Care/Special Instructions: nurse or clinical case manager to call [facility] : Gurdeep and let him know the date of d/c. recommend walker to decrease weight on amputation site. Heel touch only. Discharge Disposition: TRANSFER TO SNF/ECF
[2018-08-31] MEDS ORDERED: LIDOCAINE 1% INJ 10MG/ML (20 ML MDV) ONE (13:32)
[2018-08-31] MEDS ORDERED: LIDOCAINE 1% INJ 10MG/ML (20 ML MDV) SQ ONE (14:08)
[2018-08-31] MEDS ORDERED: IOPAMIDOL-370 50ML BTL INJ ONE (14:20)
--- NOTE | 2018-08-31 14:49 | IR ---
EXAMINATION TYPE: IR cvc insert >=5 years, PICC line and left upper extremity venogram DATE OF EXAM: 08/31/2018 COMPARISON: NONE CLINICAL HISTORY: Infection Needs long-term intravenous access for antibiotics. PROCEDURE: After informed consent, the skin overlying the left brachial vein was localized with ultrasound and n oted to be compressible and patent. An ultrasound image was obtained and submitted on the patient's chart. The overlying skin was prepped and draped and Lidocaine was used for local anesthesia. A ski n candida was made with a scalpel. Access was gained to the vein under ultrasound guidance with a 21 ga uge needle and a 0.018 inch wire was advanced. The wire could not be advanced centrally. General rosas d injection of contrast material performed. Based on the findings 0.018 inch angle Glidewire was subs equently used to cross the veins in the left axilla. Access site was dilated with Peel-Away sheath an d catheter tailored to the appropriate length and advanced such that the distal tip is at the superio r vena cava. Spot image was obtained verifying placement. Catheter was fixed to the skin with sutur e and a sterile dressing was placed following hemostasis. Catheter was aspirated and flushed with sa line. Patient was discharged in stable condition without complication. Maximal barrier technique is utilized. Ultrasound image is documented on the chart. Ultrasound used with sterile technique. Fluoro time and fluoroscopic images submitted to document procedure: 222 intraoperative images, 1.7 m inutes fluoroscopy time FINDINGS: Left axillary veins are patent. IMPRESSION: STATUS POST ULTRASOUND AND FLUOROSCOPIC GUIDED PICC LINE PLACEMENT, READY FOR USE. THIS PROCEDURE WAS PERFORMED BY THE UNDERSIGNED.
[2018-08-31] MEDS: DIPHENOX-ATROP 2.5-0.025 MG 1 EACH TAB PO PRN (15:11)
== END 2018-08-31 17:05 | DRG 241 ==
LOC: EC 11:51 → 3NMEDONC 13:13
PROVIDERS: ADMIT Family Medicine; ATTEND Family Medicine
PROC: 0Y6N0ZB Detachment at Left Foot, Partial 2nd Ray, Open Approach (ICD-10-PCS; 2018-08-25)
PROC: 0Y6N0ZC Detachment at Left Foot, Partial 3rd Ray, Open Approach (ICD-10-PCS; 2018-08-25)
PROC: 0Y6N0ZD Detachment at Left Foot, Partial 4th Ray, Open Approach (ICD-10-PCS; 2018-08-25)
PROC: 0Y6N0Z9 Detachment at Left Foot, Partial 1st Ray, Open Approach (ICD-10-PCS; principal; 2018-08-25 12:50)
PROC: 02HV33Z Insertion of Infusion Device into Superior Vena Cava, Percutaneous Approach (ICD-10-PCS; 2018-08-31)
DX: I70.262 Atherosclerosis of native arteries of extremities with gangrene, left leg (principal); L97.529 Non-pressure chronic ulcer of other part of left foot with unspecified severity; F17.210 Nicotine dependence, cigarettes, uncomplicated; F41.9 Anxiety disorder, unspecified; H91.90 Unspecified hearing loss, unspecified ear; Z89.412 Acquired absence of left great toe; B95.62 Methicillin resistant Staphylococcus aureus infection as the cause of diseases classified elsewhere; J44.9 Chronic obstructive pulmonary disease, unspecified; M19.90 Unspecified osteoarthritis, unspecified site; M10.9 Gout, unspecified; K21.9 Gastro-esophageal reflux disease without esophagitis; R09.02 Hypoxemia; R53.83 Other fatigue; Z79.01 Long term (current) use of anticoagulants; Z79.2 Long term (current) use of antibiotics; Z79.82 Long term (current) use of aspirin; Z79.899 Other long term (current) drug therapy; Z86.718 Personal history of other venous thrombosis and embolism; Z91.19 Patient's noncompliance with other medical treatment and regimen; Z82.49 Family history of ischemic heart disease and other diseases of the circulatory system
CPT/HCPCS: 36415; 36573; 70450; 70496; 70498; 80053; 80202; 81003; 82565; 83605; 84132; 84484; 85025; 85027; 85610; 85730; 87040; 87070; 87077; 87086; 87186; 87205; 87324; 88305; 88311; 88312; 96365; 96366; 96375; 99285

== ENCOUNTER 2018-09-14 20:28 | Observation (INO) | payer MEDICARE ==
--- NOTE | 2018-09-14 22:05 | ED ---
General Adult HPI - General Chief complaint: Recheck/Abnormal Lab/Rx Stated complaint: Kidney Failure Time Seen by Provider: 09/14/18 20:54 Source: patient Mode of arrival: wheelchair Limitations: no limitations - History of Present Illness Initial comments: Dictation was produced using [employer] dictation software. please excuse any gram matical, word or spelling errors. Chief Complaint: 63-year-old male with multiple comorbidities presents with abnormal outpatient labs. History of Present Illness: 63-year-old male he was told to come to the emergency department by [facility]. Patient currently therefore post left foot amputation. Patient went on a leave of absence. He states he left the intermediate to go home and take care of some things. He was at home resting when he was called by [facility] and told that he had abnormal patient labs. Nurse who discussed patient case with [facility] staff reports that patient had elevated renal markers. Patient reports feeling depressed however denies any suicidal thoughts. Denies any homicidal ideation. Patient otherwise feels well. His report pain to the surgical site. He had the wound dressing changed earlier today at [facility]. The ROS documented in this emergency department record has been reviewed and confirmed by me. Those systems with pertinent positive or negative responses have been documented in the HPI. All other systems are other negative and/or noncontributory. PHYSICAL EXAM: General Impression: Alert and oriented x3, not in acute distress HEENT: Normocephalic atraumatic, extra-ocular movements intact, pupils equal and reactive to light bilaterally, mucous membranes moist. Cardiovascular: Heart regular rate and rhythm, S1&S2 audible, no murmurs, rubs or gallops Chest: Lungs clear to auscultation bilaterally, no rhonchi, no wheeze, no rales Abdomen: Bowel sounds present, abdomen soft, non-tender, non-distended, no organomegaly Musculoskeletal: Pulses present and equal in all extremities, no peripheral edema Left foot amputation with vacuum dressing. Surgical site is clean dry intact Motor: no focal deficits noted Neurological: CN II-XII grossly intact, no focal motor or sensory deficits noted Skin: Intact with no visualized rashes Psych: Normal affect and mood ED course: 63-year-old male told to come to the emergency department from [facility] for abnormal patient labs. Signs upon arrival are within acceptable limits. Lavatory evaluation obtained. CBC is unremarkable. Metabolic panel shows creatinine 3.44. This is grossly elevated compared to last month with 0.91. No hyperkalemia. Rest of metabolic panel is unremarkable. Patient reevaluated at bedside finding stable medical condition. Patient agreeable to admission. Patient given intravenous fluids. At this point there is concern that patient's acute kidney injury secondary to antibiotics. Patient admitted with consultation to nephrology. - Related Data Home Medications Medication Instructions Recorded Confirmed Metoprolol Tartrate 25 mg PO DAILY@00 12/15/14 09/14/18 Probenecid/Colchicine 1 tab PO BID@0900,209907/05/18 09/14/18 [Probenecid-Colchicine Tabs] Diazepam [Valium] 10 mg PO BID@0900,209908/24/18 09/14/18 Omeprazole 20 mg PO DAILY@59908/24/18 09/14/18 Zinc 50 mg PO DAILY 08/24/18 09/14/18 Lactose-Reduced Food [Ensure Plus] 237 ml PO TID 09/14/18 09/14/18 Magnesium Oxide 400 mg PO DAILY@89909/14/18 09/14/18 Previous Rx's Medication Instructions Recorded Piperacillin-Tazobactam [Zosyn] 3.375 gm IVPB Q8HR #126 vial 08/28/18 Diphenox-Atrop 2.5-0.025 mg 1 each PO Q6HR PRN #40 tab 08/31/18 [Lomotil] HYDROcodone/APAP 7.5-325MG [[place] 1 tab PO Q6HR PRN #120 tab 08/31/18 7.5-325] Allergies Allergy/AdvReac Type Severity Reaction Status Date / Time hydromorphone [From Dilaudid] AdvReac Hallucinati Verified 09/14/18 22:28 ons Review of Systems ROS Statement: Those systems with pertinent positive or pertinent negative responses have been documented in the HPI. ROS Other: All systems not noted in ROS Statement are negative. Past Medical History Past Medical History: No Reported History Additional Past Medical History / Comment(s): CHRONIC BRONCHITIS.Was using oxygen 3 liters 6 months ago. DVT of the right lower extremity in 2007 , peripheral vascular disease, past wound bottom rt foot. osteomylitis right pinky toe in past was on iv antibiotics outpatient years ago History of Any Multi-Drug Resistant Organisms: MRSA Date of last positivie culture/infection: 08/24/18 MDRO Source:: FOOT Past Surgical History: No Surgical Hx Reported Additional Past Surgical History / Comment(s): Bilateral femoral bypass surgery, arthroscopic left knee surgery, bilateral inguinal hernia repair, partial left great toe excision/amputation . removal right pinky bone Past Anesthesia/Blood Transfusion Reactions: No Reported Reaction Past Psychological History: Anxiety Smoking Status: Current every day smoker Past Alcohol Use History: None Reported Past Drug Use History: Marijuana - Past Family History Brother(s) Family Medical History: Coronary Artery Disease (CAD) Additional Family Medical History / Comment(s): heart attack/cabg Father Family Medical History: No Reported History Mother Family Medical History: Deep Vein Thrombosis (DVT) General Exam Limitations: no limitations Course Vital Signs 09/14/18 20:33 Temperature 98.4 F Pulse Rate 78 Respiratory 18 Rate Blood Pressure 114/70 O2 Sat by Pulse 93 L Oximetry Medical Decision Making - Lab Data Result diagrams: 09/14/18 22:31 09/14/18 22:31 Lab Results 09/14/18 09/14/18 Range/Units 22:31 22:31 WBC 10.5 (3.8-10.6) k/uL RBC 3.94 L (4.30-5.90) m/uL Hgb 11.0 L (13.0-17.5) gm/dL Hct 34.2 L (39.0-53.0) % MCV 86.6 (80.0-100.0) fL MCH 27.8 (25.0-35.0) pg MCHC 32.1 (31.0-37.0) g/dL RDW 16.7 H (11.5-15.5) % Plt Count 338 (150-450) k/uL Neutrophils % 63 % Lymphocytes % 14 % Monocytes % 7 % Eosinophils % 15 % Basophils % 1 % Neutrophils # 6.6 (1.3-7.7) k/uL Lymphocytes # 1.4 (1.0-4.8) k/uL Monocytes # 0.7 (0-1.0) k/uL Eosinophils # 1.6 H (0-0.7) k/uL Basophils # 0.1 (0-0.2) k/uL Hypochromasia Slight Anisocytosis Slight Sodium 140 (137-145) mmol/L Potassium (3.5-5.1) mmol/L Chloride 103 (98-107) mmol/L Carbon Dioxide 28 (22-30) mmol/L Anion Gap 9 mmol/L BUN 29 H (9-20) mg/dL Creatinine 3.44 H (0.66-1.25) mg/dL Est GFR (CKD-EPI)AfAm 21 (>60 ml/min/1.73 sqM) Est GFR (CKD-EPI)NonAf 18 (>60 ml/min/1.73 sqM) Glucose 76 (74-99) mg/dL Calcium 8.4 (8.4-10.2) mg/dL Magnesium 1.8 (1.6-2.3) mg/dL Total Bilirubin 0.3 (0.2-1.3) mg/dL AST 17 (17-59) U/L ALT <6 L (21-72) U/L Alkaline Phosphatase 114 (38-126) U/L Total Protein 7.2 (6.3-8.2) g/dL Albumin 3.4 L (3.5-5.0) g/dL Disposition Clinical Impression: LISSETT (acute kidney injury) Disposition: ADMITTED IP TO THIS HOSP Condition: Fair Referrals: Malik Bui MD [Primary Care Provider] - 1-2 days Decision Time: 23:30
[2018-09-14 23:13] LABS: Anisocytosis Slight; Basophils # (A) 0.1 k/uL (0-0.2); Basophils % (A) 1 %; Eosinophils # (A) 1.6 k/uL (0-0.7); Eosinophils % (A) 15 %; HCT 34.2 % (39.0-53.0); Hypochromasia Slight; Lymphocytes # (A) 1.4 k/uL (1.0-4.8); Lymphocytes % (A) 14 %; MCH 27.8 pg (25.0-35.0); MCHC 32.1 g/dL (31.0-37.0); MCV 86.6 fL (80.0-100.0); Monocytes # (A) 0.7 k/uL (0-1.0); Monocytes % (A) 7 %; Neutrophils # (A) 6.6 k/uL (1.3-7.7); Neutrophils % (A) 63 %; Platelet Count 338 k/uL (150-450); RBC 3.94 m/uL (4.30-5.90); RDW 16.7 % (11.5-15.5); WBC 10.5 k/uL (3.8-10.6)
[2018-09-14 23:17] LABS: ALT <6 U/L (21-72); AST 17 U/L (17-59); African American GFR (CKD) 21 (>60 ml/min/1.73 sqM); Albumin 3.4 g/dL (3.5-5.0); Alkaline Phosphatase 114 U/L (38-126); Anion Gap 9 mmol/L; Blood Urea Nitrogen 29 mg/dL (9-20); Calcium 8.4 mg/dL (8.4-10.2); Carbon Dioxide 28 mmol/L (22-30); Chloride 103 mmol/L (98-107); Glucose 76 mg/dL (74-99); Magnesium 1.8 mg/dL (1.6-2.3); Sodium 140 mmol/L (137-145); Total Bilirubin 0.3 mg/dL (0.2-1.3); Total Protein 7.2 g/dL (6.3-8.2)
[2018-09-14] MEDS ORDERED: SODIUM CHLORIDE 0.9% 1,000 ML IV STA (23:25)
[2018-09-14] MEDS ORDERED: ACETAMINOPHEN TAB 325 MG TAB PO PRN (23:31)
[2018-09-14] MEDS ORDERED: NALOXONE 0.4 MG/ML 1 ML VIAL IV PRN (23:31)
[2018-09-14] MEDS ORDERED: ONDANSETRON 4 MG/2 ML VIAL IVP PRN (23:31)
[2018-09-14] MEDS ORDERED: MORPHINE SULFATE 4 MG/ML SYRINGE IV PRN (23:31)
[2018-09-14] MEDS ORDERED: MORPHINE SULFATE 4 MG/ML SYRINGE IVP STA (23:34)
[2018-09-14] MEDS ORDERED: SODIUM CHLORIDE 0.9% 1,000 ML IV SCH (23:45)
[2018-09-15 00:18] LABS: INR 5.4 (<1.2)
[2018-09-15] MEDS ORDERED: LORazepam 2 MG/ML INJ IV STA (00:42)
[2018-09-15] MEDS ORDERED: DIPHENOX-ATROP 2.5-0.025 MG 1 EACH TAB PO PRN (07:09)
[2018-09-15] MEDS ORDERED: HYDROcodone/APAP 7.5-325MG 1 EACH TAB PO PRN (07:09)
--- NOTE | 2018-09-15 07:09 | P.HPIM ---
History of Present Illness H&P Date: 09/15/18 Chief Complaint: Abnormal renal function This is a history and physical on a 63-year-old white male with history of left foot partial habitation secondary PAD who has been at the snf until recently. He states he has been leaving during the day to take care of of ADLs at home. He is weightbearing with a wound vacuum. He was called yesterday after having appropriate laboratories done at the snf and found to have elevated creatinine. The patient is now admitted for acute kidney injury element. He states he is been hydrating appropriately. Question whether he is had some type of injury from antibiotic treatment related to the postoperative care of his partially amputated foot. History of tobacco use is noted with element of COPD. Review of Systems Constitutional: Denies chills, Denies fever Eyes: denies blurred vision, denies pain Ears, nose, mouth and throat: Denies headache, Denies sore throat Cardiovascular: Denies chest pain, Denies shortness of breath Respiratory: Denies cough Gastrointestinal: Denies abdominal pain, Denies diarrhea, Denies nausea, Denies vomiting Musculoskeletal: Reports shooting leg pain Musculoskeletal: left: foot pain Integumentary: Denies pruritus, Denies rash Neurological: Denies numbness, Denies weakness Psychiatric: Denies anxiety, Denies depression Endocrine: Denies fatigue, Denies weight change Past Medical History Past Medical History: No Reported History Additional Past Medical History / Comment(s): CHRONIC BRONCHITIS.Was using oxygen 3 liters 6 months ago. DVT of the right lower extremity in 2007 , peripheral vascular disease, past wound bottom rt foot. osteomylitis right pinky toe in past was on iv antibiotics outpatient years ago History of Any Multi-Drug Resistant Organisms: MRSA Date of last positivie culture/infection: 08/24/18 MDRO Source:: FOOT Past Surgical History: No Surgical Hx Reported Additional Past Surgical History / Comment(s): Bilateral femoral bypass surgery, arthroscopic left knee surgery, bilateral inguinal hernia repair, partial left great toe excision/amputation . removal right pinky bone Past Anesthesia/Blood Transfusion Reactions: No Reported Reaction Past Psychological History: Anxiety Smoking Status: Current every day smoker Past Alcohol Use History: None Reported Past Drug Use History: Marijuana - Past Family History Brother(s) Family Medical History: Coronary Artery Disease (CAD) Additional Family Medical History / Comment(s): heart attack/cabg Father Family Medical History: No Reported History Mother Family Medical History: Deep Vein Thrombosis (DVT) Medications and Allergies Home Medications Medication Instructions Recorded Confirmed Type Metoprolol Tartrate 25 mg PO DAILY@0900 12/15/14 09/14/18 History Probenecid/Colchicine 1 tab PO BID@0900,2100 07/05/18 09/14/18 History [Probenecid-Colchicine Tabs] Diazepam [Valium] 10 mg PO BID@0900,2100 08/24/18 09/14/18 History Omeprazole 20 mg PO DAILY@0600 08/24/18 09/14/18 History Zinc 50 mg PO DAILY 08/24/18 09/14/18 History Piperacillin-Tazobactam [Zosyn] 3.375 gm IVPB Q8HR #126 vial 08/28/18 09/14/18 Rx Diphenox-Atrop 2.5-0.025 mg 1 each PO Q6HR PRN #40 tab 08/31/18 09/14/18 Rx [Lomotil] HYDROcodone/APAP 7.5-325MG [[place] 1 tab PO Q6HR PRN #120 tab 08/31/18 09/14/18 Rx 7.5-325] Lactose-Reduced Food [Ensure Plus] 237 ml PO TID 09/14/18 09/14/18 History Magnesium Oxide 400 mg PO DAILY@0900 09/14/18 09/14/18 History Allergies Allergy/AdvReac Type Severity Reaction Status Date / Time hydromorphone [From Dilaudid] AdvReac Hallucinati Verified 09/14/18 22:28 ons Physical Exam Vitals: Vital Signs Temp Pulse Resp BP Pulse Ox 09/15/18 06:38 98.2 F 76 16 125/71 99 09/15/18 03:59 98.3 F 81 16 115/65 99 09/14/18 23:45 98.0 F 86 16 122/65 99 09/14/18 20:33 98.4 F 78 18 114/70 93 L Intake and Output 09/14/18 09/15/18 09/15/18 22:59 06:59 14:59 Other: Weight 83.915 kg - Constitutional General appearance: no acute distress - EENT Eyes: EOMI - Neck Neck: no lymphadenopathy - Respiratory Respiratory: bilateral: CTA - Cardiovascular Rhythm: regular Heart sounds: normal: S1, S2 Abnormal Heart Sounds: no S3 Gallop - Gastrointestinal General gastrointestinal: soft, no tenderness - Musculoskeletal Left foot partial habitation - Psychiatric The patient is seemingly moderately depressed Psychiatric: A&O x's 3, no appropriate affect, intact judgment & insight Results CBC & Chem 7: 09/14/18 22:31 09/14/18 22:31 Labs: Abnormal Lab Results - Last 24 Hours (Table) 09/14/18 09/14/18 09/14/18 Range/Units 22:31 22:31 22:31 RBC 3.94 L (4.30-5.90) m/uL Hgb 11.0 L (13.0-17.5) gm/dL Hct 34.2 L (39.0-53.0) % RDW 16.7 H (11.5-15.5) % Eosinophils # 1.6 H (0-0.7) k/uL PT 52.0 H (9.0-12.0) sec INR 5.4 H* (<1.2) BUN 29 H (9-20) mg/dL Creatinine 3.44 H (0.66-1.25) mg/dL ALT <6 L (21-72) U/L Albumin 3.4 L (3.5-5.0) g/dL Assessment and Plan (1) Partial nontraumatic amputation of left foot Current Visit: Yes Status: Acute Code(s): Z89.432 - ACQUIRED ABSENCE OF LEFT FOOT SNOMED Code(s): 272015228 (2) LISSETT (acute kidney injury) Current Visit: Yes Status: Acute Code(s): N17.9 - ACUTE KIDNEY FAILURE, UNSPECIFIED SNOMED Code(s): 62234002 (3) Peripheral vascular disease Current Visit: No Status: Acute Code(s): I73.9 - PERIPHERAL VASCULAR DISEASE, UNSPECIFIED SNOMED Code(s): 604033885 Plan: Ask infectious disease see the patient related to antibiotic choice, if in fact this is the culprit for his acute kidney injury. Possibly just pain control elements. Reconcile home medications. Prognosis is guarded secondary to his possible noncompliance with taking care of his left foot.
[2018-09-15 07:46] VITALS: TEMP 98.4
[2018-09-15] MEDS ORDERED: PANTOPRAZOLE 40 MG TABLET PO SCH (09:00)
[2018-09-15] MEDS ORDERED: NON-FORMULARY DRUG (Lactose-Reduced Food [Ensure Plus] 237 ML) PO SCH (09:00)
[2018-09-15] MEDS ORDERED: MAGNESIUM OXIDE 400 MG TAB PO SCH (09:00)
[2018-09-15] MEDS ORDERED: DIAZEPAM 5 MG TAB PO SCH (09:00)
[2018-09-15] MEDS ORDERED: METOPROLOL TARTRATE 25 MG TAB PO SCH (09:00)
[2018-09-15 09:34] VITALS: BP 134/93; PULSE 75; RESP 19
--- NOTE | 2018-09-15 23:29 | P.DS ---
Providers Date of admission: 09/14/18 23:31 Attending physician: Malik Bui Consults: 09/14/18 23:32 Consult Physician Routine Consulting Provider: Christ Robins Consult Reason/Comments: saad Do you want consulting provider notified?: Yes 09/14/18 23:40 Consult Physician Routine Consulting Provider: Lucas Arellano Consult Reason/Comments: foot infection Do you want consulting provider notified?: Yes Consult Physician Routine Consulting Provider: Levi Gray Consult Reason/Comments: amputation Do you want consulting provider notified?: Yes Primary care physician: Malik Bui - Discharge Diagnosis(es) (1) Partial nontraumatic amputation of left foot Status: Acute (2) SAAD (acute kidney injury) Status: Acute (3) Peripheral vascular disease Status: Acute Hospital Course: The patient was essentially admitted for acute kidney injury as elucidated from recent lab work done at [facility]. The patient has an underlying history of left partial foot amputation secondary to gangrene and PAD. The patient became frustrated with his care and signed out AGAINST MEDICAL ADVICE. The patient understands that I could possibly discharge the patient secondary to his noncompliance. Patient Condition at Discharge: Serious Plan - Discharge Summary New Discharge Prescriptions: No Action Metoprolol Tartrate 25 mg PO DAILY@0900 Probenecid/Colchicine [Probenecid-Colchicine Tabs] 1 tab PO BID@0900,2100 Zinc 50 mg PO DAILY Diazepam [Valium] 10 mg PO BID@0900,2100 Omeprazole 20 mg PO DAILY@0600 Piperacillin-Tazobactam [Zosyn] 3.375 gm IVPB Q8HR #126 vial Diphenox-Atrop 2.5-0.025 mg [Lomotil] 1 each PO Q6HR PRN #40 tab PRN Reason: Diarrhea HYDROcodone/APAP 7.5-325MG [[place] 7.5-325] 1 tab PO Q6HR PRN #120 tab PRN Reason: Pain Lactose-Reduced Food [Ensure Plus] 237 ml PO TID Magnesium Oxide 400 mg PO DAILY@0900 Discharge Medication List Metoprolol Tartrate 25 mg PO DAILY@0900 12/15/14 [History] Probenecid/Colchicine [Probenecid-Colchicine Tabs] 1 tab PO BID@0900,2100 07/05/18 [History] Diazepam [Valium] 10 mg PO BID@0900,2100 08/24/18 [History] Omeprazole 20 mg PO DAILY@0600 08/24/18 [History] Zinc 50 mg PO DAILY 08/24/18 [History] Piperacillin-Tazobactam [Zosyn] 3.375 gm IVPB Q8HR #126 vial 08/28/18 [Rx] Diphenox-Atrop 2.5-0.025 mg [Lomotil] 1 each PO Q6HR PRN #40 tab 08/31/18 [Rx] HYDROcodone/APAP 7.5-325MG [[place] 7.5-325] 1 tab PO Q6HR PRN #120 tab 08/31/18 [Rx] Lactose-Reduced Food [Ensure Plus] 237 ml PO TID 09/14/18 [History] Magnesium Oxide 400 mg PO DAILY@0900 09/14/18 [History] Follow up Appointment(s)/Referral(s): Malik Bui MD [Primary Care Provider] - 1-2 days Discharge Disposition: Left Against Medical Advice
[2018-09-16] MEDS ORDERED: PANTOPRAZOLE 40 MG TABLET PO SCH (06:00)
== END 2018-09-15 13:20 | disposition left against medical advice (07) ==
LOC: EC 20:28 → 3NMEDONC 23:31 → 4MS4W 09-15 01:56
PROVIDERS: ADMIT Family Medicine; ATTEND Family Medicine
DX: N17.9 Acute kidney failure, unspecified (principal); F41.9 Anxiety disorder, unspecified; F17.200 Nicotine dependence, unspecified, uncomplicated; I73.9 Peripheral vascular disease, unspecified; Z86.718 Personal history of other venous thrombosis and embolism; Z86.14 Personal history of Methicillin resistant Staphylococcus aureus infection; Z95.828 Presence of other vascular implants and grafts; Z89.412 Acquired absence of left great toe; Z88.5 Allergy status to narcotic agent; Z79.2 Long term (current) use of antibiotics; Z79.899 Other long term (current) drug therapy; Z82.49 Family history of ischemic heart disease and other diseases of the circulatory system
CPT/HCPCS: 96361; 96374; 96375; 99285; 36415; 80053; 82550; 83735; 85025; 85610; G0378 ×3; J2060; J2270

== ENCOUNTER 2018-10-13 15:39 | Day surgery (SDC) | payer MEDICARE ==
[2018-10-13] MEDS ORDERED: LACTATED RINGERS 1,000 ML IV ONE (16:40)
[2018-10-13] MEDS ORDERED: ONDANSETRON 4 MG/2 ML VIAL IVP ONE (16:41)
[2018-10-13 17:04] LABS: Glucose,Whole Blood 75 mg/dL (75-99)
[2018-10-13] MEDS ORDERED: MIDAZOLAM 2 MG/2 ML VIAL ONE (17:09)
[2018-10-13] MEDS ORDERED: fentaNYL (PF) 50 MCG/ML 2 ML AMP ONE (17:09)
[2018-10-13] MEDS ORDERED: PROPOFOL 10 MG/ML 20 ML VIAL IV ONE (17:09)
[2018-10-13] MEDS ORDERED: METOPROLOL TARTRATE 5 MG/5 ML VIAL IVP ONE (17:09)
[2018-10-13] MEDS ORDERED: SODIUM CHLORIDE 0.9% 100 ML with ceFAZolin 2,000 MG IV ONE ×2 (17:18)
--- NOTE | 2018-10-13 17:18 | P.ANPRN ---
Procedure Note - Anesthesia - Nerve Block Performed Left Adductor Canal Single Time Out Performed: Yes Date of Procedure: 10/13/18 Procedure Start Time: 17:02 Procedure Stop Time: 17:10 Location of Patient Procedure: PACU Indication: Acute Post-Operative Pain, Requested by physician Sedation Type: Sedate with meaningful contact maintained Preparation: Sterile Prep, Sterile Dressing Position: Supine Catheter: None Needle Types: Pajunk Needle Gauge: 20 Technique: Ultrasound Injectate: 0.5% Ropivacaine (see comment for volume) (10 ml)
--- NOTE | 2018-10-13 17:28 | P.ANPRN ---
Procedure Note - Anesthesia - Nerve Block Performed Left Popliteal Single Time Out Performed: Yes Date of Procedure: 10/13/18 Procedure Start Time: 17:11 Procedure Stop Time: 17:16 Location of Patient Procedure: PACU Indication: Acute Post-Operative Pain, Requested by physician Sedation Type: Sedate with meaningful contact maintained Preparation: Sterile Prep, Sterile Dressing Position: Left Lateral Catheter: None Needle Types: Pajunk Needle Gauge: 20 Injectate: 0.5% Ropivacaine (see comment for volume) (20 ml w/ Decadron 4 mg)
--- NOTE | 2018-10-13 17:53 | P.OP ---
Description of Procedure: SURGEON: Neha Farah DO CLINIC OFFICE ASSISTANT: None PREOPERATIVE DIAGNOSIS: Nonhealing left transmetatarsal amputation wound with bony exposure, diabetes, tobacco abuse. POSTOPERATIVE DIAGNOSIS: Same. OPERATION: Revision of left lower extremity transmetatarsal amputation, sharp excisional debridement to the bone, resultant wound measuring 13 x 5.5 x 1.6 laterally with a medial tunnel of 2.9 cm ANESTHESIA: Monitored anesthesia IV sedation with regional block ESTIMATED BLOOD LOSS: 10 mL SPECIMENS REMOVED: Left fifth metatarsal, wound culture COMPLICATIONS: None OPERATIVE FINDINGS: The patient is a 63-year-old male with a previous transmetatarsal amputation. He has been following up in wound care and has been on IV antibiotics. He was seen in the office today and found to have exposed bone in this fifth metatarsal and in need of revision. He has a history of diabetes and tobacco abuse along with noncompliance and severe peripheral arterial disease DESCRIPTION OF PROCEDURE: This patient was brought to the operating room after a regional block, he was given IV sedation per anesthesia. The operative foot was prepped and draped in sterile manner. A preprocedure timeout was performed and all parties are in agreement. A Dodd elevator was utilized to elevate the periosteum of the exposed portion of metatarsal on the fourth and fifth metatarsal. They were excised the bone cutters and cleaned with a Marco. The remainder of the muscles of the cutaneous tissues were sharply debrided with a curet. Measurements are as above. Hemostasis was well controlled and pressure dressing was applied. The patient tolerated the procedure well.
[2018-10-13 17:55] LABS: Glucose,Whole Blood 70 mg/dL (75-99)
[2018-10-13 23:33] VITALS: RESP 20
[2018-10-13 23:34] VITALS: BP 102/53; PULSE 83; TEMP 98.2
== END 2018-10-13 19:45 | disposition home health service (06) ==
LOC: OR 15:39 → 4SSUR 17:40 → OR 19:45
PROVIDERS: ATTEND Surgery
DX: T87.89 Other complications of amputation stump (principal); E11.51 Type 2 diabetes mellitus with diabetic peripheral angiopathy without gangrene; J44.9 Chronic obstructive pulmonary disease, unspecified; Z86.14 Personal history of Methicillin resistant Staphylococcus aureus infection; Z86.718 Personal history of other venous thrombosis and embolism; Z88.5 Allergy status to narcotic agent; F17.210 Nicotine dependence, cigarettes, uncomplicated; Z79.891 Long term (current) use of opiate analgesic; Z79.899 Other long term (current) drug therapy
CPT/HCPCS: 64445; 87070; 87205; 87075; 11044; 11047 ×3; J2250; J2405; J0690; J3010; J2704; 87077; 87186

== ENCOUNTER 2018-11-15 20:58 | Emergency (ER) | payer MEDICARE ==
[2018-11-15 21:07] VITALS: RESP 18
--- NOTE | 2018-11-16 00:07 | US ---
EXAM: US Duplex Right Lower Extremity Veins CLINICAL HISTORY: ITS.REASON US Reason: Pain TECHNIQUE: Real-time duplex ultrasound scan of the right lower extremity veins integrating B-mode two-dimensional vascular structure, Doppler spectral analysis, color flow Doppler imaging and compression. COMPARISON: No relevant prior studies available. FINDINGS: Deep veins: No DVT in the visualized common femoral, femoral, proximal deep femoral or popliteal veins. The veins demonstrate normal color flow, are normally compressible, with normal phasic flow and/or augmentation response. Superficial veins: No thrombus in the visualized great saphenous vein. Soft tissues: 9.9 cm collection versus mass in the medial thigh. IMPRESSION: No DVT. 9.9 cm collection versus mass in the medial thigh.
[2018-11-16] MEDS ORDERED: HYDROcodone/APAP 7.5-325MG 1 EACH TAB PO ONE (00:49)
--- NOTE | 2018-11-16 00:49 | ED ---
Extremity Problem HPI - General Chief complaint: Extremity Problem,Nontraumatic Stated complaint: Lump on leg Time Seen by Provider: 11/15/18 23:25 Source: patient, RN notes reviewed Mode of arrival: wheelchair Limitations: no limitations - History of Present Illness Initial comments: This is a 63-year-old male who presents with complaints of right medial posterior right thigh swelling for the past week getting worse he has ever history of peripheral vascular disease he did see his vascular surgeon this past week. He has a trauma fevers chills nausea vomiting sweats loss of function to his upper or lower extremities he does complain of increased pain to this area. Of note he is on Coumadin. MD Complaint: extremity pain, extremity swelling - Related Data Home Medications Medication Instructions Recorded Confirmed Metoprolol Tartrate 25 mg PO DAILY@0900 12/15/14 11/15/18 Probenecid/Colchicine 1 tab PO BID@0900,209907/05/18 11/15/18 [Probenecid-Colchicine Tabs] Diazepam [Valium] 10 mg PO BID@0900,209908/24/18 11/15/18 Omeprazole 20 mg PO DAILY@0600 08/24/18 11/15/18 Zinc 50 mg PO DAILY 08/24/18 11/15/18 Lactose-Reduced Food [Ensure Plus] 237 ml PO TID 09/14/18 11/15/18 Magnesium Oxide 400 mg PO DAILY@0900 09/14/18 11/15/18 HYDROcodone/APAP 7.5-325MG [[place] 1 tab PO Q6HR PRN 11/15/18 11/15/18 7.5-325] Nerve Block Medication 1 tab PO DIRECTED 11/15/18 11/15/18 Previous Rx's Medication Instructions Recorded Diphenox-Atrop 2.5-0.025 mg 1 each PO Q6HR PRN #40 tab 08/31/18 [Lomotil] Allergies Allergy/AdvReac Type Severity Reaction Status Date / Time hydromorphone [From Dilaudid] AdvReac Hallucinati Verified 11/15/18 23:48 ons Review of Systems ROS Statement: Those systems with pertinent positive or pertinent negative responses have been documented in the HPI. ROS Other: All systems not noted in ROS Statement are negative. Past Medical History Past Medical History: No Reported History, COPD, Deep Vein Thrombosis (DVT), GERD/Reflux, Hearing Disorder / Deafness, Osteoarthritis (OA), Pneumonia, Vascular Disorder Additional Past Medical History / Comment(s): CHRONIC BRONCHITIS.Was using oxygen 3 liters 6 months ago. DVT of the right lower extremity in 2007 , peripheral vascular disease, past wound bottom rt foot. osteomylitis right pinky toe in past was on iv antibiotics outpatient years ago History of Any Multi-Drug Resistant Organisms: MRSA Date of last positivie culture/infection: 10/13/18 MDRO Source:: FOOT Past Surgical History: No Surgical Hx Reported, Orthopedic Surgery Additional Past Surgical History / Comment(s): Bilateral femoral bypass surgery, arthroscopic left knee surgery, bilateral inguinal hernia repair, partial left great toe excision/amputation . removal right pinky bone Past Anesthesia/Blood Transfusion Reactions: No Reported Reaction Past Psychological History: Anxiety Smoking Status: Current every day smoker Past Alcohol Use History: None Reported Past Drug Use History: Marijuana - Past Family History Brother(s) Family Medical History: Coronary Artery Disease (CAD) Additional Family Medical History / Comment(s): heart attack/cabg Father Family Medical History: No Reported History Mother Family Medical History: Deep Vein Thrombosis (DVT) General Exam - General Exam Comments Initial Comments: This is a well-developed sec appearing male who is awake alert oriented 3 Limitations: no limitations General appearance: alert, in no apparent distress Head exam: Present: atraumatic, normocephalic, normal inspection Eye exam: Present: normal appearance, PERRL, EOMI. Absent: scleral icterus, conjunctival injection, periorbital swelling Extremities exam: Present: tenderness, normal capillary refill, other (Examination of the right lower extremity demonstrates a fluctuant mass to the right medial posterior distal thigh some tenderness palpation no localized erythema is a well-healed scar posterior to this. This is proximal to the knee joint. Distally is no sensorimotor or vascular deficits) Course Vital Signs 11/15/18 11/15/18 11/15/18 21:04 23:15 23:19 Temperature 97.8 F 97.8 F Pulse Rate 66 Respiratory 18 Rate Blood Pressure 101/69 O2 Sat by Pulse 90 L 93 L 93 L Oximetry 11/16/18 00:00 Temperature Pulse Rate 62 Respiratory 18 Rate Blood Pressure 107/62 O2 Sat by Pulse 97 Oximetry Procedures - Incision & Drainage Consent Obtained: verbal consent Site: lower extremity Anesthetic Used: lidocaine 1% Amount (mLs): 3 I&D Cleaning Method: Chloroprep Sterile Field Used?: Yes Needle Aspiration Performed?: Yes I&D Drainage Obtained: Other (44 mL of mucoid serosanguineous type fluid) Culture Obtained?: Yes Patient Tolerated Procedure: well (Robin wrap applied with sterile dressing) Medical Decision Making - Medical Decision Making Patient did have a large area that appeared be fluctuant consistent with either a seroma or hematoma. 44 mL of fluid was obtained. Friday get some relief from the pain. Culture was sent. Patient was cautioned after discussion prior to this that there could be reaccumulation of the fluid. He and his family member are aware this. Disposition Clinical Impression: Seroma, Hematoma Disposition: HOME SELF-CARE Condition: Good Instructions (If sedation given, give patient instructions): Hematoma (ED), Seroma (DC) Is patient prescribed a controlled substance at d/c from ED?: No Referrals: Malik Bui MD [Primary Care Provider] - 1-2 days
[2018-11-16] MEDS ORDERED: LIDOCAINE 1% INJ 10MG/ML (20 ML MDV) SQ ONE (01:11)
[2018-11-16 02:08] VITALS: BP 144/88; PULSE 78; TEMP 97
== END 2018-11-16 01:45 | disposition home or self-care (01) ==
LOC: EC 20:58
DX: M79.81 Nontraumatic hematoma of soft tissue (principal); K21.9 Gastro-esophageal reflux disease without esophagitis; M19.90 Unspecified osteoarthritis, unspecified site; H91.90 Unspecified hearing loss, unspecified ear; F41.9 Anxiety disorder, unspecified; F17.200 Nicotine dependence, unspecified, uncomplicated; Z79.899 Other long term (current) drug therapy; Z88.5 Allergy status to narcotic agent; Z86.718 Personal history of other venous thrombosis and embolism; Z86.14 Personal history of Methicillin resistant Staphylococcus aureus infection
CPT/HCPCS: 93005; 87070; 87205; 93971; 99284; 10160; J2001

== ENCOUNTER 2018-11-18 13:47 | Inpatient (IN) | payer MEDICARE, OTHER ==
--- NOTE | 2018-11-18 14:26 | ED ---
General Adult HPI - General Chief complaint: Recheck/Abnormal Lab/Rx Stated complaint: lethargy & abscess Time Seen by Provider: 11/18/18 14:12 Source: EMS, RN notes reviewed Mode of arrival: EMS Limitations: no limitations - History of Present Illness Initial comments: 63-year-old male with a past medical history of DVT, COPD, GERD, osteoarthritis , pneumonia, vascular disease presents to the emergency department for a chief complaint of lump noted on the right leg. States this has been there for about a week. States he was seen recently and had it drained. Patient states that it came right back. Patient had a surgery in the area but this was several years ago. States that he is now feeling weak and this is also been going on for a month. He feels more tired than normal.Patient has no other complaints at this time including shortness of breath, chest pain, abdominal pain, nausea or vomiting, headache, or visual changes. - Related Data Home Medications Medication Instructions Recorded Confirmed Metoprolol Tartrate 25 mg PO DAILY 12/15/14 11/18/18 Probenecid/Colchicine 1 tab PO BID 07/05/18 11/18/18 [Probenecid-Colchicine Tabs] Diazepam [Valium] 10 mg PO BID@0900,2100 08/24/18 11/18/18 Omeprazole 20 mg PO DAILY@0600 08/24/18 11/18/18 Zinc 50 mg PO DAILY 08/24/18 11/18/18 Lactose-Reduced Food [Ensure Plus] 237 ml PO TID 09/14/18 11/18/18 Magnesium Oxide 400 mg PO DAILY 09/14/18 11/18/18 Atorvastatin [Lipitor] 20 mg PO HS 11/18/18 11/18/18 Diphenox-Atrop 2.5-0.025 mg 1 tab PO Q6HR PRN 11/18/18 11/18/18 [Lomotil] Gabapentin [Neurontin] 300 mg PO TID PRN 11/18/18 11/18/18 Sertraline [Zoloft] 50 mg PO DAILY 11/18/18 11/18/18 Allergies Allergy/AdvReac Type Severity Reaction Status Date / Time hydromorphone [From Dilaudid] AdvReac Hallucinati Verified 11/18/18 15:53 ons Review of Systems ROS Statement: Those systems with pertinent positive or pertinent negative responses have been documented in the HPI. ROS Other: All systems not noted in ROS Statement are negative. Past Medical History Past Medical History: No Reported History, COPD, Deep Vein Thrombosis (DVT), GERD/Reflux, Hearing Disorder / Deafness, Osteoarthritis (OA), Pneumonia, Vascular Disorder Additional Past Medical History / Comment(s): CHRONIC BRONCHITIS.Was using oxygen 3 liters 6 months ago. DVT of the right lower extremity in 2007 , peripheral vascular disease, past wound bottom rt foot. osteomylitis right pinky toe in past was on iv antibiotics outpatient years ago History of Any Multi-Drug Resistant Organisms: MRSA Date of last positivie culture/infection: 10/13/18 MDRO Source:: FOOT Past Surgical History: No Surgical Hx Reported, Orthopedic Surgery Additional Past Surgical History / Comment(s): Bilateral femoral bypass surgery, arthroscopic left knee surgery, bilateral inguinal hernia repair, partial left great toe excision/amputation . removal right pinky bone Past Anesthesia/Blood Transfusion Reactions: No Reported Reaction Past Psychological History: Anxiety Smoking Status: Current every day smoker Past Alcohol Use History: None Reported Past Drug Use History: Marijuana - Past Family History Brother(s) Family Medical History: Coronary Artery Disease (CAD) Additional Family Medical History / Comment(s): heart attack/cabg Father Family Medical History: No Reported History Mother Family Medical History: Deep Vein Thrombosis (DVT) General Exam Limitations: no limitations General appearance: alert, in no apparent distress Head exam: Present: atraumatic, normocephalic, normal inspection Eye exam: Present: normal appearance, PERRL, EOMI. Absent: scleral icterus, conjunctival injection, periorbital swelling ENT exam: Present: normal exam, mucous membranes moist Neck exam: Present: normal inspection, full ROM. Absent: tenderness, meningismus, lymphadenopathy Respiratory exam: Present: normal lung sounds bilaterally. Absent: respiratory distress, wheezes, rales, rhonchi, stridor Cardiovascular Exam: Present: regular rate, normal rhythm, normal heart sounds. Absent: systolic murmur, diastolic murmur, rubs, gallop, clicks Extremities exam: Present: tenderness (mild tenderness noted over this area.), normal capillary refill (Capillary refill less than 2 seconds, DP pulse 2+ in the right lower extremity.), other (Patient has a large 10 cm x 10 cm mass noted to the medial superior aspect of the right distal thigh). Absent: pedal edema, joint swelling, calf tenderness Neurological exam: Present: alert Psychiatric exam: Present: normal affect, normal mood Course Vital Signs 11/18/18 11/18/18 13:48 15:33 Temperature 97.8 F Pulse Rate 69 74 Respiratory 18 16 Rate Blood Pressure 111/77 O2 Sat by Pulse 99 100 Oximetry Medical Decision Making - Medical Decision Making 63-year-old female presents to the emergency department for a chief complaint of lump to the medial aspect of the right knee. States he has had this for about a week. States it was drained a few days ago but it came back. States he has also felt weak over the past week or so. On exam patient does have a large fluctuant mass noted to the medial superior right knee. This does not communicate with the knee joint. Neurovascular status intact. Ultrasound performed on 11/15/2018 showed a 9.9 cm collection versus mass in the medial thigh. According to the chart about 40 mL of serosanguineous fluid was drained at that time. Culture did show MRSA. Therefore given leukocytosis and weakness patient will be started on vancomycin and admitted for further management. - Lab Data Result diagrams: 11/18/18 14:04 11/18/18 14:04 Lab Results 11/18/18 11/18/18 Range/Units 14:04 14:04 WBC 14.7 H (3.8-10.6) k/uL RBC 4.22 L (4.30-5.90) m/uL Hgb 10.9 L (13.0-17.5) gm/dL Hct 34.7 L (39.0-53.0) % MCV 82.1 (80.0-100.0) fL MCH 25.9 (25.0-35.0) pg MCHC 31.5 (31.0-37.0) g/dL RDW 14.8 (11.5-15.5) % Plt Count 453 H (150-450) k/uL Neutrophils % 79 % Lymphocytes % 10 % Monocytes % 6 % Eosinophils % 2 % Basophils % 2 % Neutrophils # 11.6 H (1.3-7.7) k/uL Lymphocytes # 1.5 (1.0-4.8) k/uL Monocytes # 0.9 (0-1.0) k/uL Eosinophils # 0.3 (0-0.7) k/uL Basophils # 0.3 H (0-0.2) k/uL Sodium 139 (137-145) mmol/L Potassium 3.7 (3.5-5.1) mmol/L Chloride 102 (98-107) mmol/L Carbon Dioxide 26 (22-30) mmol/L Anion Gap 11 mmol/L BUN 16 (9-20) mg/dL Creatinine 0.90 (0.66-1.25) mg/dL Est GFR (CKD-EPI)AfAm >90 (>60 ml/min/1.73 sqM) Est GFR (CKD-EPI)NonAf >90 (>60 ml/min/1.73 sqM) Glucose 69 L (74-99) mg/dL Calcium 7.7 L (8.4-10.2) mg/dL Total Bilirubin 0.3 (0.2-1.3) mg/dL AST 17 (17-59) U/L ALT 12 L (21-72) U/L Alkaline Phosphatase 114 (38-126) U/L Total Protein 6.5 (6.3-8.2) g/dL Albumin 2.9 L (3.5-5.0) g/dL Disposition Clinical Impression: Soft tissue mass, MRSA (methicillin resistant staph aureus) culture positive, Leukocytosis Disposition: ADMITTED IP TO THIS HOSP Condition: Fair Is patient prescribed a controlled substance at d/c from ED?: No Referrals: Malik Bui MD [Primary Care Provider] - 1-2 days Time of Disposition: 16:18
[2018-11-18 15:38] LABS: Basophils # (A) 0.3 k/uL (0-0.2); Basophils % (A) 2 %; Eosinophils # (A) 0.3 k/uL (0-0.7); Eosinophils % (A) 2 %; HCT 34.7 % (39.0-53.0); HGB 10.9 gm/dL (13.0-17.5); Lymphocytes # (A) 1.5 k/uL (1.0-4.8); Lymphocytes % (A) 10 %; MCH 25.9 pg (25.0-35.0); MCHC 31.5 g/dL (31.0-37.0); MCV 82.1 fL (80.0-100.0); Mean Platelet Volume 8.2; Monocytes # (A) 0.9 k/uL (0-1.0); Monocytes % (A) 6 %; Neutrophils # (A) 11.6 k/uL (1.3-7.7); Neutrophils % (A) 79 %; Platelet Count 453 k/uL (150-450); RBC 4.22 m/uL (4.30-5.90); RDW 14.8 % (11.5-15.5); WBC 14.7 k/uL (3.8-10.6)
[2018-11-18 15:48] LABS: ALT 12 U/L (21-72); AST 17 U/L (17-59); African American GFR (CKD) >90 (>60 ml/min/1.73 sqM); Albumin 2.9 g/dL (3.5-5.0); Alkaline Phosphatase 114 U/L (38-126); Anion Gap 11 mmol/L; Blood Urea Nitrogen 16 mg/dL (9-20); Calcium 7.7 mg/dL (8.4-10.2); Carbon Dioxide 26 mmol/L (22-30); Chloride 102 mmol/L (98-107); Glucose 69 mg/dL (74-99); Potassium 3.7 mmol/L (3.5-5.1); Sodium 139 mmol/L (137-145); Total Bilirubin 0.3 mg/dL (0.2-1.3); Total Protein 6.5 g/dL (6.3-8.2)
[2018-11-18] MEDS ORDERED: KETOROLAC 30 MG/ML 1 ML VIAL IVP STA (15:53)
[2018-11-18] MEDS: SODIUM CHLORIDE 0.9% 500 ML 500 ML IV SCH ×2 (15:54→16:35)
[2018-11-18] MEDS ORDERED: VANCOMYCIN IV PER PHARMACY 1 EACH MISC MISCELLANE PRN (16:02)
[2018-11-18] MEDS ORDERED: NALOXONE 0.4 MG/ML 1 ML VIAL IV PRN (16:05)
[2018-11-18] MEDS ORDERED: VANCOMYCIN 1,500 MG in SODIUM CHLORIDE 0.9% 250 ML IVPB STA (16:05)
[2018-11-18] MEDS ORDERED: MORPHINE SULFATE 4 MG/ML SYRINGE IVP STA (16:31)
[2018-11-18] MEDS ORDERED: HYDROcodone/APAP 5-325MG 1 EACH TAB PO PRN (16:31)
[2018-11-18] MEDS: SODIUM CHLORIDE 0.9% 1,000 ML IV SCH (16:43)
[2018-11-18] MEDS: COLCHICIN-PROBENECID 0.5-500MG 1 EACH TAB PO SCH (20:36)
[2018-11-18] MEDS: DIAZEPAM 5 MG TAB PO SCH (20:36)
[2018-11-18] MEDS: NICOTINE 21MG/24HR PATCH TRANSDERM SCH (20:36)
[2018-11-18] MEDS: ATORVASTATIN 20 MG TAB PO SCH (20:36)
[2018-11-18] MEDS: HYDROcodone/APAP 7.5-325MG 1 EACH TAB PO PRN (20:38)
[2018-11-18] MEDS ORDERED: LACTOSE REDUCED FOOD PO SCH (22:00)
[2018-11-18] MEDS: KETOROLAC 30 MG/ML 1 ML VIAL IVP PRN (22:29)
[2018-11-18] MEDS: VANCOMYCIN 1,250 MG in SODIUM CHLORIDE 0.9% 250 ML IVPB SCH (23:11)
[2018-11-19] MEDS: HYDROcodone/APAP 7.5-325MG 1 EACH TAB PO PRN ×5 (02:17→22:03)
[2018-11-19] MEDS: SODIUM CHLORIDE 0.9% 1,000 ML IV SCH ×3 (02:19→20:30)
[2018-11-19] MEDS: VANCOMYCIN 1,250 MG in SODIUM CHLORIDE 0.9% 250 ML IVPB SCH (07:30)
[2018-11-19] MEDS: SERTRALINE 50 MG TAB PO SCH (07:30)
[2018-11-19] MEDS: ZINC SULFATE 220 MG CAP PO SCH (07:30)
[2018-11-19] MEDS: MAGNESIUM OXIDE 400 MG TAB PO SCH (07:30)
[2018-11-19] MEDS: PANTOPRAZOLE 40 MG TABLET PO SCH (07:31)
[2018-11-19] MEDS: NICOTINE 21MG/24HR PATCH TRANSDERM SCH (07:31)
[2018-11-19] MEDS: DIAZEPAM 5 MG TAB PO SCH ×2 (07:31→20:30)
[2018-11-19] MEDS: METOPROLOL TARTRATE 25 MG TAB PO SCH (07:31)
[2018-11-19 07:54] LABS: Basophils % (A) 0 %; Eosinophils # (A) 0.4 k/uL (0-0.7); Eosinophils % (A) 5 %; HCT 31.9 % (39.0-53.0); Hypochromasia Slight; Lymphocytes # (A) 1.5 k/uL (1.0-4.8); Lymphocytes % (A) 16 %; MCH 26.2 pg (25.0-35.0); MCHC 31.3 g/dL (31.0-37.0); MCV 83.8 fL (80.0-100.0); Mean Platelet Volume 7.6; Monocytes # (A) 0.5 k/uL (0-1.0); Monocytes % (A) 5 %; Neutrophils # (A) 6.6 k/uL (1.3-7.7); Neutrophils % (A) 73 %; Platelet Count 395 k/uL (150-450); WBC 9.1 k/uL (3.8-10.6)
[2018-11-19] MEDS: COLCHICIN-PROBENECID 0.5-500MG 1 EACH TAB PO SCH ×2 (08:02→20:29)
--- NOTE | 2018-11-19 08:11 | P.HPIM ---
History of Present Illness H&P Date: 11/19/18 Chief Complaint: Right inner thigh mass The patient is a 63-year-old white male who has history of peripheral vascular disease and PAD with history of amputation who has had a right thigh medial mass near surgical scar area. He was in the emergency room and had drainage which showed severe sinus fluid. However, culture has showed methicillin-resistant Staphylococcus aureus and the patient is now admitted for treatment of this. The patient is currently on vancomycin but the mass is now become a little bit larger at about 7.5-4 cm in width and height. There is some tenderness and redness. The patient states some pain. The patient is otherwise able to ambulate. Appetite is decreased. No significant fever stated however. No nausea, vomiting or diarrhea. Review of Systems Constitutional: Denies chills, Denies fever Eyes: denies blurred vision, denies pain Ears, nose, mouth and throat: Denies headache, Denies sore throat Cardiovascular: Denies chest pain, Denies shortness of breath Respiratory: Denies cough Gastrointestinal: Denies abdominal pain, Denies diarrhea, Denies nausea, Denies vomiting Musculoskeletal: Denies myalgias Integumentary: Reports pruritus, Reports rash Neurological: Denies numbness, Denies weakness Endocrine: Denies fatigue, Denies weight change Past Medical History Past Medical History: COPD, Deep Vein Thrombosis (DVT), GERD/Reflux, Hearing Disorder / Deafness, Osteoarthritis (OA), Pneumonia, Vascular Disorder Additional Past Medical History / Comment(s): CHRONIC BRONCHITIS.Was using oxygen 3 liters 6 months ago. DVT of the right lower extremity in 2007 , peripheral vascular disease, past wound bottom rt foot. osteomylitis right pinky toe in past was on iv antibiotics outpatient years ago History of Any Multi-Drug Resistant Organisms: MRSA Date of last positivie culture/infection: 10/13/18 MDRO Source:: FOOT Past Surgical History: No Surgical Hx Reported, Orthopedic Surgery Additional Past Surgical History / Comment(s): Bilateral femoral bypass surgery, arthroscopic left knee surgery, bilateral inguinal hernia repair, partial left great toe excision/amputation . removal right pinky bone Past Anesthesia/Blood Transfusion Reactions: No Reported Reaction Past Psychological History: Anxiety Additional Psychological History / Comment(s): pt indepedant. 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 Patient is a recent is having difficulties with the adjustment Smoking Status: Current every day smoker Past Alcohol Use History: None Reported Additional Past Alcohol Use History / Comment(s): smoker since age 18 (1973), 1 PPD Past Drug Use History: Marijuana Additional Drug Use History / Comment(s): occ use but none in 5-6 months - Past Family History Brother(s) Family Medical History: Coronary Artery Disease (CAD) Additional Family Medical History / Comment(s): heart attack/cabg Father Family Medical History: No Reported History Mother Family Medical History: Deep Vein Thrombosis (DVT) Medications and Allergies Home Medications Medication Instructions Recorded Confirmed Type Metoprolol Tartrate 25 mg PO DAILY 12/15/14 11/18/18 History Probenecid/Colchicine 1 tab PO BID 07/05/18 11/18/18 History [Probenecid-Colchicine Tabs] Diazepam [Valium] 10 mg PO BID@0900,2100 08/24/18 11/18/18 History Omeprazole 20 mg PO DAILY@0600 08/24/18 11/18/18 History Zinc 50 mg PO DAILY 08/24/18 11/18/18 History Lactose-Reduced Food [Ensure Plus] 237 ml PO TID 09/14/18 11/18/18 History Magnesium Oxide 400 mg PO DAILY 09/14/18 11/18/18 History Atorvastatin [Lipitor] 20 mg PO HS 11/18/18 11/18/18 History Diphenox-Atrop 2.5-0.025 mg 1 tab PO Q6HR PRN 11/18/18 11/18/18 History [Lomotil] Gabapentin [Neurontin] 300 mg PO TID PRN 11/18/18 11/18/18 History Sertraline [Zoloft] 50 mg PO DAILY 11/18/18 11/18/18 History Allergies Allergy/AdvReac Type Severity Reaction Status Date / Time hydromorphone [From Dilaudid] AdvReac Hallucinati Verified 11/18/18 15:53 ons Physical Exam Vitals: Vital Signs Temp Pulse Pulse Resp BP BP Pulse Ox 11/19/18 05:00 97.7 F 72 20 95/58 96 11/18/18 21:55 97.5 F L 70 20 91/64 97 11/18/18 17:55 98.4 F 86 14 119/68 93 L 11/18/18 17:27 97.8 F 67 18 108/72 100 11/18/18 16:32 67 18 108/72 100 11/18/18 15:33 74 16 100 11/18/18 13:48 97.8 F 69 18 111/77 99 Intake and Output 11/18/18 11/19/18 11/19/18 22:59 06:59 14:59 Intake Total 940 200 Balance 940 200 Intake: Oral 940 200 Other: # Voids 1 1 - Constitutional General appearance: no acute distress - EENT Eyes: EOMI - Neck Neck: no lymphadenopathy - Respiratory Respiratory: bilateral: CTA - Cardiovascular Rhythm: regular Heart sounds: normal: S1, S2 Abnormal Heart Sounds: no S3 Gallop - Gastrointestinal General gastrointestinal: soft, no tenderness - Neurologic Neurologic: CNII-XII intact Results CBC & Chem 7: 11/19/18 07:19 11/18/18 14:04 Labs: Abnormal Lab Results - Last 24 Hours (Table) 11/18/18 11/18/18 11/19/18 Range/Units 14:04 14:04 07:19 WBC 14.7 H (3.8-10.6) k/uL RBC 4.22 L 3.80 L (4.30-5.90) m/uL Hgb 10.9 L 10.0 L (13.0-17.5) gm/dL Hct 34.7 L 31.9 L (39.0-53.0) % Plt Count 453 H (150-450) k/uL Neutrophils # 11.6 H (1.3-7.7) k/uL Basophils # 0.3 H (0-0.2) k/uL Glucose 69 L (74-99) mg/dL Calcium 7.7 L (8.4-10.2) mg/dL ALT 12 L (21-72) U/L Albumin 2.9 L (3.5-5.0) g/dL Thrombosis Risk Factor Assmnt - Choose All That Apply Any of the Below Risk Factors Present?: No Assessment and Plan (1) Leukocytosis Current Visit: Yes Status: Acute Code(s): D72.829 - ELEVATED WHITE BLOOD CELL COUNT, UNSPECIFIED SNOMED Code(s): 409280846 (2) MRSA (methicillin resistant staph aureus) culture positive Current Visit: Yes Status: Acute Code(s): Z22.322 - CARRIER OR SUSPECTED CARRIER OF METHICILLIN RESIS STAPH SNOMED Code(s): 329654711 (3) Soft tissue mass Current Visit: Yes Status: Acute Code(s): M79.89 - OTHER SPECIFIED SOFT TISSUE DISORDERS SNOMED Code(s): 943723961 (4) COPD (chronic obstructive pulmonary disease) Current Visit: No Status: Acute Code(s): J44.9 - CHRONIC OBSTRUCTIVE PULMONARY DISEASE, UNSPECIFIED SNOMED Code(s): 89237142 (5) Partial nontraumatic amputation of left foot Current Visit: No Status: Acute Code(s): Z89.432 - ACQUIRED ABSENCE OF LEFT FOOT SNOMED Code(s): 539777906 (6) Seroma Current Visit: No Status: Acute Code(s): KZW9899 - SNOMED Code(s): 539470770 Plan: Appreciate input from consultants. Prior titrate pain medication while in the hospital. Continue vancomycin. New patch check CBC and CMP in a.m. Reconcile medications. Ambien 5 when necessary sleep. Prognosis is guarded secondary to his overall health. See orders otherwise. Time with Patient: Greater than 30
[2018-11-19 08:21] LABS: Albumin 2.3 g/dL (3.5-5.0); Calcium 7.1 mg/dL (8.4-10.2); Potassium 3.4 mmol/L (3.5-5.1); Total Bilirubin 0.2 mg/dL (0.2-1.3); Total Protein 5.3 g/dL (6.3-8.2)
[2018-11-19] MEDS: KETOROLAC 30 MG/ML 1 ML VIAL IVP PRN (19:03)
[2018-11-19] MEDS ORDERED: SODIUM BICARBONATE TAB 650 MG TAB PO PRN (19:56)
[2018-11-19] MEDS: ATORVASTATIN 20 MG TAB PO SCH (20:29)
[2018-11-19] MEDS: VANCOMYCIN 1,500 MG in SODIUM CHLORIDE 0.9% 250 ML IVPB SCH (20:30)
[2018-11-19] MEDS: ZOLPIDEM 5 MG TAB PO PRN (23:02)
--- NOTE | 2018-11-19 23:44 | P.CONS ---
History of Present Illness - Reason for Consult Consult date: 11/19/18 - Chief Complaint Pain and swelling right leg - History of Present Illness 63-year-old male has multiple medical troubles including severe peripheral vascular disease and a history of gout. The patient has been following with the vascular surgeon as well as the wound healing Center reg arding a nonhealing ulceration to his left foot. Due to gangrenous changes he did have amputation to the left great toe. An open ulceration continued and there was evidence of exposure of the first metatarsal. Local wound care was being utilized in the wound VAC was being attempted. The patient presented to the wound center where he has been receiving ongoing care, in August the patient however is evidence of extensive gangrenous change of the foot was sent to emergency center at admission through his primary care physician.At that time he was seen by vascular surgery and transmetatarsal amputation was performed with a potential conversion to a [id number] amputation if he did not respond well. He fortunately has been doing relatively well with the negative pressure therapy system being applied to the transmetatarsal amputation site. He did require 1 bony revision because of exposure to metatarsal head. They have been showing some improvement. Gen. the patient was starting to have some improvement but he then developed some significant swelling to his right leg distally related to the prior incision from his vascular bypass. Apparently he was seen in the outpatient setting and aspiration was performed MRSA was isolated. He doesn't. He was placed on some oral antibiotic therapy but despite this the leg worsened became more tight warm erythematous and painful and he noticed that there was also evidence of some swelling to the more proximal aspect of his thigh at the more cephalad aspect of his bypass. Culture was noticed to have evidence of MRSA and vancomycin has been initiated he is quite uncomfortable. We discussed that his vascular surgeon will need to evaluate. Review of Systems HEENT:Denies headache or acute visual change. Denies sinus or mouth discomforts. Denies neck stiffness or pain. Denies significant oral cavity pa in. Denies difficulty on swallowing. Lungs: Denies significant shortness of breath, cough, sputum production, or hemoptysis. Cardiovascular: Denies significant shortness of breath, chest pain, chest wall pain, orthopnea, dyspnea on exertion, syncope Gastrointestinal:Denies nausea, vomiting, diarrhea, constipation, hematemesis, melena, hematochezia. No no significant change of bowel habit noticed. Musculoskeletal: denies significant myalgias or arthralgias. No new joint swelling. Denies new back pain. Skin: Pain and swelling and redness right thigh Neuro: Denies headache or visual change. Denies any new onset weakness or difficulty with ambulation. Denies falls or seizures. Psychiatric:Denies anxiety or depression. Endocrine: Progressive fatigue and weight loss Past Medical History Past Medical History: COPD, Deep Vein Thrombosis (DVT), GERD/Reflux, Hearing Disorder / Deafness, Osteoarthritis (OA), Pneumonia, Vascular Disorder Additional Past Medical History / Comment(s): CHRONIC BRONCHITIS.Was using ox ygen 3 liters 6 months ago. DVT of the right lower extremity in 2007 , peripheral vascular disease, past wound bottom rt foot. osteomylitis right pinky toe in past was on iv antibiotics outpatient years ago History of Any Multi-Drug Resistant Organisms: MRSA Year Discovered:: 10/13/18 MDRO Source:: FOOT Past Surgical History: No Surgical Hx Reported, Orthopedic Surgery Additional Past Surgical History / Comment(s): Bilateral femoral bypass surgery, arthroscopic left knee surgery, bilateral inguinal hernia repair, partial left great toe excision/amputation . removal right pinky bone Past Anesthesia/Blood Transfusion Reactions: No Reported Reaction Past Psychological History: Anxiety Additional Psychological History / Comment(s): pt indepedant. 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 Patient is a recent is having difficulties with the adjustment Smoking Status: Current every day smoker Past Alcohol Use History: None Reported Additional Past Alcohol Use History / Comment(s): smoker since age 18 (1973), 1 PPD Past Drug Use History: Marijuana Additional Drug Use History / Comment(s): occ use but none in 5-6 months - Past Family History Brother(s) Family Medical History: Coronary Artery Disease (CAD) Additional Family Medical History / Comment(s): heart attack/cabg Father Family Medical History: No Reported History Mother Family Medical History: Deep Vein Thrombosis (DVT) Medications and Allergies Home Medications and Allergies Comment(s): Current Medications Hydrocodone Bitart/Acetaminophen (Loman 7.5-325) 1 each PO Q4H PRN PRN Reason: SEVERE Pain Last Admin: 11/19/18 22:03 Dose: 1 each Documented by: Atorvastatin Calcium (Lipitor) 20 mg PO HS YASMIN Last Admin: 11/19/18 20:29 Dose: 20 mg Documented by: Colchicine (Colbenemid) 1 each PO BID [facility] Last Admin: 11/19/18 20:29 Dose: 1 each Documented by: Diazepam (Valium) 10 mg PO BID@0900,2100 [facility] Last Admin: 11/19/18 20:30 Dose: 10 mg Documented by: Diphenoxylate HCl/Atropine (Lomotil) 1 each PO Q6HR PRN PRN Reason: Diarrhea Gabapentin (Neurontin) 300 mg PO TID PRN PRN Reason: Pain Sodium Chloride (Saline 0.9%) 1,000 mls @ 100 mls/hr IV .Q10H [facility] Last Admin: 11/19/18 20:30 Dose: Not Given Documented by: Vancomycin HCl 1,500 mg/ (Sodium Chloride) 250 mls @ 125 mls/hr IVPB Q12HR [facility] Last Admin: 11/19/18 20:30 Dose: 125 mls/hr Documented by: Ketorolac Tromethamine (Toradol) 30 mg IVP Q6HR PRN PRN Reason: Moderate Pain Stop: 11/23/18 16:06 Last Admin: 11/19/18 19:03 Dose: 30 mg Documented by: Magnesium Oxide (Mag-Ox) 400 mg PO DAILY [facility] Last Admin: 11/19/18 07:30 Dose: 400 mg Documented by: Metoprolol Tartrate (Lopressor) 25 mg PO DAILY [facility] Last Admin: 11/19/18 07:31 Dose: Not Given Documented by: Miscellaneous Information (Vancomycin Trough Due) 0 each MISCELLANE DIRECTED ONE Stop: 11/20/18 20:01 Naloxone HCl (Narcan) 0.2 mg IV Q2M PRN PRN Reason: Opioid Reversal Nicotine (Habitrol 21mg/24hr Patch) 1 patch TRANSDERM DAILY [facility] Last Admin: 11/19/18 07:31 Dose: 1 patch Documented by: Pantoprazole Sodium (Protonix) 40 mg PO AC-BRKFST [facility] Last Admin: 11/19/18 07:31 Dose: 40 mg Documented by: Sertraline HCl (Zoloft) 50 mg PO DAILY [facility] Last Admin: 11/19/18 07:30 Dose: 50 mg Documented by: Sodium Bicarbonate (Sodium Bicarbonate Tab) 325 mg PO BID PRN PRN Reason: Heartburn Last Admin: 11/19/18 20:28 Dose: 325 mg Documented by: Zinc Sulfate (Orazinc) 220 mg PO DAILY YASMIN Last Admin: 11/19/18 07:30 Dose: 220 mg Documented by: Zolpidem Tartrate (Ambien) 5 mg PO HS PRN PRN Reason: Insomnia Last Admin: 11/19/18 23:02 Dose: 5 mg Documented by: Home Medications Medication Instructions Recorded Confirmed Type Metoprolol Tartrate 25 mg PO DAILY 12/15/14 11/18/18 History Probenecid/Colchicine 1 tab PO BID 07/05/18 11/18/18 History [Probenecid-Colchicine Tabs] Diazepam [Valium] 10 mg PO BID@0900,2100 08/24/18 11/18/18 History Omeprazole 20 mg PO DAILY@0600 08/24/18 11/18/18 History Zinc 50 mg PO DAILY 08/24/18 11/18/18 History Lactose-Reduced Food [Ensure Plus] 237 ml PO TID 09/14/18 11/18/18 History Magnesium Oxide 400 mg PO DAILY 09/14/18 11/18/18 History Atorvastatin [Lipitor] 20 mg PO HS 11/18/18 11/18/18 History Diphenox-Atrop 2.5-0.025 mg 1 tab PO Q6HR PRN 11/18/18 11/18/18 History [Lomotil] Gabapentin [Neurontin] 300 mg PO TID PRN 11/18/18 11/18/18 History Sertraline [Zoloft] 50 mg PO DAILY 11/18/18 11/18/18 History Allergies Allergy/AdvReac Type Severity Reaction Status Date / Time hydromorphone [From Dilaudid] AdvReac Hallucinati Verified 11/18/18 15:53 ons Physical Exam Vitals: Vital Signs Temp Pulse Resp BP Pulse Ox 11/19/18 13:31 97.6 F 75 16 110/63 95 11/19/18 05:00 97.7 F 72 20 95/58 96 Intake and Output 11/19/18 11/19/18 11/20/18 14:59 22:59 06:59 Intake Total 540 540 Balance 540 540 Intake: Oral 540 540 Other: Voiding Method Toilet Urinal # Voids 4 # Bowel Movements 4 Weight 74.843 kg 63-year-old male quite uncomfortable HEENT: Anicteric conjunctiva are pink and moist nasal mucosa grossly intact without significant lesions, there is no thrush. Neck: The neck is supple without significant lymphadenopathy or thyromegaly. Lungs: Good bilateral air entry without significant crackles or wheezing. There is no significant bronchial sounds. There is no egophony or dullness. Heart: Regular rate and rhythm with an audible S1-S2, no S3 no S4. There is no significant murmur click or rub, PMI was nondisplaced. Abdomen: Positive bowel sounds soft and nontender without palpable masses or organomegaly. There was no guarding or rebound. Extremities: The upper extremities have no evidence of any distinct lesions. Left lower extremity has evidence of the transmetatarsal amputation site. Dressing is removed and a saline dressing is reapplied. The site has evidence of good granulation without significant erythema swelling or worsening tenderness. The right lower extremity however has the acute changes with significant swelling on the medial aspect of the leg distally on his arterial bypass site it is fluctuant warm erythematous and tender. Has a similar area of swelling proximal near the groin on the anterior medial aspect of the thigh. This area is more firm but is also slightly tender in is not with significant erythema. There is not a large amount of cellulitis, ascending lymphangitis or significant lymphadenopathy being seen into the right leg or groin. No other significant abnormal lymph nodes are seen. Neuro: Awake alert oriented to person place and time. There are no acute new gross focal sensory motor deficits. Results CBC & Chem 7: 11/19/18 07:19 11/19/18 07:19 Labs: Abnormal Lab Results - Last 24 Hours (Table) 11/19/18 11/19/18 Range/Units 07:19 07:19 RBC 3.80 L (4.30-5.90) m/uL Hgb 10.0 L (13.0-17.5) gm/dL Hct 31.9 L (39.0-53.0) % Potassium 3.4 L (3.5-5.1) mmol/L Calcium 7.1 L (8.4-10.2) mg/dL AST 14 L (17-59) U/L ALT 15 L (21-72) U/L Total Protein 5.3 L (6.3-8.2) g/dL Albumin 2.3 L (3.5-5.0) g/dL Microbiology - Last 24 Hours (Table) 11/18/18 16:30 Blood Culture - Preliminary Blood No Growth after 24 hours Laboratory Results WBC 9.1 k/uL (3.8-10.6) 11/19/18 07:19 RBC 3.80 m/uL (4.30-5.90) L 11/19/18 07:19 Hgb 10.0 gm/dL (13.0-17.5) L 11/19/18 07:19 Hct 31.9 % (39.0-53.0) L 11/19/18 07:19 MCV 83.8 fL (80.0-100.0) 11/19/18 07:19 MCH 26.2 pg (25.0-35.0) 11/19/18 07: MCHC 31.3 g/dL (31.0-37.0) 11/19/18 07:19 RDW 15.0 % (11.5-15.5) 11/19/18 07:19 Plt Count 395 k/uL (150-450) 11/19/18 07:19 Neutrophils % 73 % 11/19/18 07:19 Lymphocytes % 16 % 11/19/18 07:19 Monocytes % 5 % 11/19/18 07:19 Eosinophils % 5 % 11/19/18 07:19 Basophils % 0 % 11/19/18 07:19 Neutrophils # 6.6 k/uL (1.3-7.7) 11/19/18 07:19 Lymphocytes # 1.5 k/uL (1.0-4.8) 11/19/18 07:19 Monocytes # 0.5 k/uL (0-1.0) 11/19/18 07:19 Eosinophils # 0.4 k/uL (0-0.7) 11/19/18 07:19 Basophils # 0.0 k/uL (0-0.2) 11/19/18 07:19 Hypochromasia Slight 11/19/18 07:19 Sodium 139 mmol/L (137-145) 11/19/18 07:19 Potassium 3.4 mmol/L (3.5-5.1) L 11/19/18 07:19 Chloride 105 mmol/L (98-107) 11/19/18 07:19 Carbon Dioxide 26 mmol/L (22-30) 11/19/18 07:19 Anion Gap 8 mmol/L 11/19/18 07:19 BUN 20 mg/dL (9-20) 11/19/18 07:19 Creatinine 1.13 mg/dL (0.66-1.25) 11/19/18 07:19 Est GFR (CKD-EPI)AfAm 81 (>60 ml/min/1.73 sqM) 11/19/18 07:19 Est GFR (CKD-EPI)NonAf 70 (>60 ml/min/1.73 sqM) 11/19/18 07:19 Glucose 76 mg/dL (74-99) 11/19/18 07:19 Calcium 7.1 mg/dL (8.4-10.2) L 11/19/18 07:19 Total Bilirubin 0.2 mg/dL (0.2-1.3) 11/19/18 07:19 AST 14 U/L (17-59) L 11/19/18 07:19 ALT 15 U/L (21-72) L 11/19/18 07:19 Alkaline Phosphatase 104 U/L (38-126) 11/19/18 07:19 Total Protein 5.3 g/dL (6.3-8.2) L 11/19/18 07:19 Albumin 2.3 g/dL (3.5-5.0) L 11/19/18 07:19 C. difficile (EIA) Intrp Negative (Negative) 11/19/18 19:00 Microbiology 11/18/18 16:30 Blood Blood Culture - Preliminary No Growth after 24 hours Assessment and Plan (1) Leukocytosis Current Visit: Yes Status: Acute Code(s): D72.829 - ELEVATED WHITE BLOOD CELL COUNT, UNSPECIFIED SNOMED Code(s): 715684243 (2) MRSA (methicillin resistant staph aureus) culture positive Narrative/Plan: 63-year-old male who has history of severe peripheral vascular disease having increasing difficulties as of late. He developed a gangrenous changes to the left foot in a transmetatarsal amputation was performed. There is evidence of some bony exposure of the metatarsal head and it appears that her further resection of the f fourth metatarsal head occurred in with the negative pressure therapy system has been showing some steady improvement. The patient were to present to the ER couple days ago with increasing pain and tenderness on the distal aspect of the right leg in conjunction with an area of prior vascular bypass. Aspiration was performed and no evidence of MRSA as per nicely. Vancomycin therapy has been initiated. Vascular surgery consultation is requested. There is concerns to infection of his graft. Is somewhat unusual that there is difficulty at 2 different sites along the graft that are not contiguous. However given his history there is great concern that there could be infection of his graft. Blood cultures are in process. Pain control is being addressed. Patient should limit his ambulation. He is without signifi cant high-grade fevers, he did have leukocytosis at admission that is already improving with hydration and antibiotic therapy. Local care to the transmetatarsal amputation site is requested. Current Visit: Yes Status: Acute Code(s): Z22.322 - CARRIER OR SUSPECTED CARRIER OF METHICILLIN RESIS STAPH SNOMED Code(s): 437819786 (3) Partial nontraumatic amputation of left foot Current Visit: No Status: Acute Code(s): Z89.432 - ACQUIRED ABSENCE OF LEFT FOOT SNOMED Code(s): 937602641
[2018-11-20] MEDS: KETOROLAC 30 MG/ML 1 ML VIAL IVP PRN ×2 (02:23→12:02)
[2018-11-20] MEDS: METOPROLOL TARTRATE 25 MG TAB PO SCH (07:34)
[2018-11-20] MEDS: SODIUM CHLORIDE 0.9% 1,000 ML IV SCH ×2 (08:13→17:23)
[2018-11-20] MEDS: NICOTINE 21MG/24HR PATCH TRANSDERM SCH (08:13)
[2018-11-20] MEDS: ZINC SULFATE 220 MG CAP PO SCH (08:13)
[2018-11-20] MEDS: VANCOMYCIN 1,500 MG in SODIUM CHLORIDE 0.9% 250 ML IVPB SCH (08:13)
[2018-11-20] MEDS: DIAZEPAM 5 MG TAB PO SCH ×2 (08:13→21:22)
[2018-11-20] MEDS: SERTRALINE 50 MG TAB PO SCH (08:13)
[2018-11-20] MEDS: MAGNESIUM OXIDE 400 MG TAB PO SCH (08:13)
[2018-11-20] MEDS: PANTOPRAZOLE 40 MG TABLET PO SCH (08:13)
[2018-11-20] MEDS: COLCHICIN-PROBENECID 0.5-500MG 1 EACH TAB PO SCH ×2 (08:13→21:22)
[2018-11-20] MEDS: DIPHENOX-ATROP 2.5-0.025 MG 1 EACH TAB PO PRN (08:20)
[2018-11-20] MEDS: HYDROcodone/APAP 10-325MG 1 EACH TAB PO PRN ×4 (08:20→21:23)
[2018-11-20 09:05] LABS: African American GFR (CKD) >90 (>60 ml/min/1.73 sqM)
[2018-11-20] MEDS ORDERED: RX INFO: IV CONTRAST WAS GIVEN 1 EACH MISC MISCELLANE PRN (10:39)
[2018-11-20 12:03] LABS: ALT 16 U/L (21-72); AST 18 U/L (17-59); Albumin 2.2 g/dL (3.5-5.0); Alkaline Phosphatase 113 U/L (38-126); Anion Gap 6 mmol/L; Blood Urea Nitrogen 19 mg/dL (9-20); Calcium 7.2 mg/dL (8.4-10.2); Carbon Dioxide 25 mmol/L (22-30); Chloride 109 mmol/L (98-107); Glucose 75 mg/dL (74-99); Potassium 3.5 mmol/L (3.5-5.1); Sodium 140 mmol/L (137-145); Total Bilirubin 0.1 mg/dL (0.2-1.3); Total Protein 5.1 g/dL (6.3-8.2)
--- NOTE | 2018-11-20 12:48 | CT ---
EXAMINATION TYPE: CT angio lower extremity RT DATE OF EXAM: 11/20/2018 COMPARISON: None HISTORY: 63-year-old male Swelling right knee medial aspect TECHNIQUE: Contiguous axial scanning of the abdomen and pelvis performed without and with IV Contrast , additional postcontrast bilateral lower extreme runoff was performed. Patient injected with 125 mL of Isovue 370. Delayed images through the kidneys were obtained. Coronal/sagittal reconstructions per formed. CT DLP: 1832 mGycm Automated exposure control for dose reduction was used. FINDINGS: Generalized upper abdomen shows gallstones without abnormal gallbladder distention, normal adrenal gl ands, 1.6 cm cyst posterior right kidney, normal spleen, and pancreas. Liquid stool within the cecum were normal appendix. Prominent fluid-filled small bowel loops lower ab domen and pelvis and suggestion of submucosal hyperemia along the sigmoid colon. Trace pelvic free fluid is noted. No abdominal pelvic lymphadenopathy seen. Moderate atherosclerotic calcifications at the origin of the bilateral renal arteries and mild at the origin of the iliac axis and SMA. ARMANDO is patent. Moderate atherosclerosis and segmental narrowing of the bilateral common iliac arteries and proximal external iliac arteries. Right: There seems to be a right SFA to popliteal bypass. Mild narrowing at the distal anastomosis behind th e knee. The bypass is patent. However, along the distal segment of the bypass at the posterior and posteromedial aspect of the knee , there is a large complex appearing fluid collection measuring 10.7 cm wide by 6.6 cm AP by 9.3 cm c raniocaudal. Multiple coils appear to be present within the medial aspect of this collection as well as some layering and nodular areas of either enhancement or faint contrast in the region of the coils with attenuation of 84 Hounsfield units. No well-defined direct contrast extravasation is identified . Anterior tibial artery is patent. There is occlusion of the tibial peroneal trunk with reconstitution of the peroneal artery which is seen to above the ankle and gives collateral branch supplying the di stal posterior tibial artery which has faint runoff into the foot. The anterior tibial artery has run off into the foot. Left: Scattered moderate atherosclerotic narrowing in the popliteal artery. An severe focal narrowing upper left anterior tibial artery. Significant stenosis of the posterior tibial artery and diminutive kadie melvi artery which supplies a collateral branch to reconstitute the posterior tibial artery at the ank le with faint supply to the foot. There seems to be ulceration along the dorsum of the left foot. There is runoff via the anterior tibi al artery as well. Bones: Advanced degenerative disc disease throughout the lumbar spine. IMPRESSION: 1. LARGE LOBULATED FLUID COLLECTION ALONG THE POSTERIOR, POSTEROMEDIAL ASPECT OF THE RIGHT KNEE MEASU RING 10.7 X 6.6 X 9.3 CM. THE COLLECTION ENCIRCLES THE DISTAL SEGMENT OF THE SFA-POPLITEAL BYPASS GRA FT WHICH REMAINS PATENT. MULTIPLE COILS ARE PRESENT WITHIN THE MEDIAL ASPECT OF THE COLLECTION. CORRE LATE TO THE PATIENT'S PRIOR PROCEDURES AND FOR ANY KNOWN DIAGNOSIS. 2. The collection shows some dependent nodular areas of either enhancement or faint contrast in the r egion of the coils. No well-defined site of contrast extravasation is identified to suggest active bl eeding. Chronic hematoma with very slow extravasation is difficult to entirely exclude. Otherwise, a complex cystic mass is also in the differential. Again, correlate for any known diagnosis. Consider s oft tissue ultrasound to determine if any vascular soft tissue components are present. 3. Apparent ulceration along the dorsum of the left foot. There is severe stenosis in the upper left anterior tibial artery, subtotal occlusion of the upper posterior tibial artery and a diminutive kadie melvi artery which supplies a collateral branch to reconstitute the posterior posterior tibial artery at the ankle. 4. Right leg and foot circulation as above. 5. Mild free fluid in the pelvis. Liquid stool in the right side of the colon, suggestion of some mil d inflammation of the sigmoid colon, and prominent fluid-filled small bowel loops in the lower abdome n and pelvis. Correlate for possible enterocolitis.
--- NOTE | 2018-11-20 15:44 | P.GSCN ---
History of Present Illness Consult date: 11/20/18 Reason for Consult: RLE mass Requesting physician: Malik Bui History of present illness: CHIEF COMPLAINT: Right lower extremity mass HISTORY OF PRESENT ILLNESS: 63-year-old male who presented to the emergency room with a chief complaint of a lump on his right lower extremity. Patient was easily seen in the emergency room on 11/16/2018 for same complaints. Incision and drainage was performed by the emergency room physician and 44 mL's of serosanguineous fluid was drained. Patient was discharged home. Culture obtained is positive for MRSA. He states the area has gotten larger again and presents for further evaluation. PAST MEDICAL HISTORY: See list. PAST SURGICAL HISTORY: See list. SOCIAL HISTORY: No illicit drug use. REVIEW OF SYSTEMS: CONSTITUTIONAL: Denies fever or chills. HEENT: Denies blurred vision, vision changes, or eye pain. Denies hemoptysis CARDIOVASCULAR: Denies chest pain or pressure. RESPIRATORY: No shortness of breath. GASTROINTESTINAL: Denies abdominal pain. Denies nausea or vomiting. HEMATOLOGIC: Denies bleeding disorders. GENITOURINARY: Denies any blood in urine. SKIN: Reports fluid collection/lump to right lower extremity. Denies pruitis. Denies rash. PHYSICAL EXAM: VITAL SIGNS: Reviewed. GENERAL: Well-developed in no acute distress. HEENT: No sclera icterus. Extraocular movements grossly intact. Moist buccal mucosa. Head is atraumatic, normocephalic. ABDOMEN: Soft. Nondistended. Nontender. NEUROLOGIC: Alert and oriented. Cranial nerves II through XII grossly intact. SKIN: Large fluid collection to medial aspect of right knee near previous bypass incision. Mild tenderness. No erythema. No active drainage noted. LABORATORY DATA: WBC on admission 14.7. Repeat 9.1. IMAGING: CT right lower extremity: Large lobulated fluid collection along the posterior posteromedial aspect of the right knee measuring 10.7 x 6.6 x 9.37 m. The collection encircles the distal segment of the SFApopliteal bypass graft which remains patent. Multiple coils are present within the medial aspect of the collection. Chronic hematoma with very slow extravasation is difficult to entirely exclude. Otherwise a complex cystic mass is also in the differential. ASSESSMENT: 1. Fluid collection of right medial knee involving bypass graft site, CT can not exclude hematoma, s/p recent drainage in ER, culture positive for MRSA PLAN: Dr. Gotti reviewed CT scan. No surgical intervention from general surgery standpoint. Continue IV antibiotics. Defer any drainage of fluid collection or surgical procedures to vascular surgery secondary to fluid collection involving bypass graft site Nurse practitioner note has been reviewed by physician. Signing provider agrees with the documented findings, assessment, and plan of care. Past Medical History Past Medical History: COPD, Deep Vein Thrombosis (DVT), GERD/Reflux, Hearing Disorder / Deafness, Osteoarthritis (OA), Pneumonia, Vascular Disorder Additional Past Medical History / Comment(s): CHRONIC BRONCHITIS.Was using oxygen 3 liters 6 months ago. DVT of the right lower extremity in 2007 , peripheral vascular disease, past wound bottom rt foot. osteomylitis right pinky toe in past was on iv antibiotics outpatient years ago History of Any Multi-Drug Resistant Organisms: MRSA Year Discovered:: 10/13/18 MDRO Source:: FOOT Past Surgical History: No Surgical Hx Reported, Orthopedic Surgery Additional Past Surgical History / Comment(s): Bilateral femoral bypass surgery, arthroscopic left knee surgery, bilateral inguinal hernia repair, partial left great toe excision/amputation . removal right pinky bone Past Anesthesia/Blood Transfusion Reactions: No Reported Reaction Past Psychological History: Anxiety Additional Psychological History / Comment(s): pt indepedant. 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 Patient is a recent is having difficulties with the adjustment Smoking Status: Current every day smoker Past Alcohol Use History: None Reported Additional Past Alcohol Use History / Comment(s): smoker since age 18 (1972), 1 PPD Past Drug Use History: Marijuana Additional Drug Use History / Comment(s): occ use but none in 5-6 months - Past Family History Brother(s) Family Medical History: Coronary Artery Disease (CAD) Additional Family Medical History / Comment(s): heart attack/cabg Father Family Medical History: No Reported History Mother Family Medical History: Deep Vein Thrombosis (DVT) Medications and Allergies Home Medications Medication Instructions Recorded Confirmed Type Metoprolol Tartrate 25 mg PO DAILY 12/15/14 11/18/18 History Probenecid/Colchicine 1 tab PO BID 07/05/18 11/18/18 History [Probenecid-Colchicine Tabs] Diazepam [Valium] 10 mg PO BID@0900,2100 08/24/18 11/18/18 History Omeprazole 20 mg PO DAILY@0600 08/24/18 11/18/18 History Zinc 50 mg PO DAILY 08/24/18 11/18/18 History Lactose-Reduced Food [Ensure Plus] 237 ml PO TID 09/14/18 11/18/18 History Magnesium Oxide 400 mg PO DAILY 09/14/18 11/18/18 History Atorvastatin [Lipitor] 20 mg PO HS 11/18/18 11/18/18 History Diphenox-Atrop 2.5-0.025 mg 1 tab PO Q6HR PRN 11/18/18 11/18/18 History [Lomotil] Gabapentin [Neurontin] 300 mg PO TID PRN 11/18/18 11/18/18 History Sertraline [Zoloft] 50 mg PO DAILY 11/18/18 11/18/18 History Allergies Allergy/AdvReac Type Severity Reaction Status Date / Time hydromorphone [From Dilaudid] AdvReac Hallucinati Verified 11/18/18 15:53 ons Surgical - Exam Vital Signs Temp Pulse Resp BP Pulse Ox 97.8 F 69 18 111/77 99 11/18/18 13:48 11/18/18 13:48 11/18/18 13:48 11/18/18 13:48 11/18/18 13:48 Results - Labs 11/19/18 07:19 11/20/18 08:39 Abnormal Lab Results - Last 24 Hours (Table) 11/20/18 Range/Units 08:39 Chloride 109 H (98-107) mmol/L Calcium 7.2 L (8.4-10.2) mg/dL Total Bilirubin 0.1 L (0.2-1.3) mg/dL ALT 16 L (21-72) U/L Total Protein 5.1 L (6.3-8.2) g/dL Albumin 2.2 L (3.5-5.0) g/dL Microbiology - Last 24 Hours (Table) 11/18/18 16:30 Blood Culture - Preliminary Blood No Growth after 24 hours Diabetes panel 11/20/18 Range/Units 08:39 Sodium 140 (137-145) mmol/L Potassium 3.5 (3.5-5.1) mmol/L Chloride 109 H (98-107) mmol/L Carbon Dioxide 25 (22-30) mmol/L BUN 19 (9-20) mg/dL Creatinine 0.97 (0.66-1.25) mg/dL Glucose 75 (74-99) mg/dL Calcium 7.2 L (8.4-10.2) mg/dL AST 18 (17-59) U/L ALT 16 L (21-72) U/L Alkaline Phosphatase 113 (38-126) U/L Total Protein 5.1 L (6.3-8.2) g/dL Albumin 2.2 L (3.5-5.0) g/dL Calcium panel 11/20/18 Range/Units 08:39 Calcium 7.2 L (8.4-10.2) mg/dL Albumin 2.2 L (3.5-5.0) g/dL Pituitary panel 11/20/18 Range/Units 08:39 Sodium 140 (137-145) mmol/L Potassium 3.5 (3.5-5.1) mmol/L Chloride 109 H (98-107) mmol/L Carbon Dioxide 25 (22-30) mmol/L BUN 19 (9-20) mg/dL Creatinine 0.97 (0.66-1.25) mg/dL Glucose 75 (74-99) mg/dL Calcium 7.2 L (8.4-10.2) mg/dL Adrenal panel 11/20/18 Range/Units 08:39 Sodium 140 (137-145) mmol/L Potassium 3.5 (3.5-5.1) mmol/L Chloride 109 H (98-107) mmol/L Carbon Dioxide 25 (22-30) mmol/L BUN 19 (9-20) mg/dL Creatinine 0.97 (0.66-1.25) mg/dL Glucose 75 (74-99) mg/dL Calcium 7.2 L (8.4-10.2) mg/dL Total Bilirubin 0.1 L (0.2-1.3) mg/dL AST 18 (17-59) U/L ALT 16 L (21-72) U/L Alkaline Phosphatase 113 (38-126) U/L Total Protein 5.1 L (6.3-8.2) g/dL Albumin 2.2 L (3.5-5.0) g/dL
--- NOTE | 2018-11-20 16:21 | P.GSCN ---
History of Present Illness Consult date: 11/20/18 Reason for Consult: right leg mass History of present illness: 63 year old gentleman with history of right femoral popliteal artery bypass year s ago presents to the ER for right lower leg mass that has increased in size over the last week. He describes severe pain at the mass but denies any numbness or tingling of the right foot. He was recently in the ER and had the mass drained and cultured which came back positive. He currently denies any fevers, chills, nausea, vomiting or chest pain. Review of Systems All systems: negative (what is mentioned in the PMH or HPI) Past Medical History Past Medical History: COPD, Deep Vein Thrombosis (DVT), GERD/Reflux, Hearing Disorder / Deafness, Osteoarthritis (OA), Pneumonia, Vascular Disorder Additional Past Medical History / Comment(s): CHRONIC BRONCHITIS.Was using oxygen 3 liters 6 months ago. DVT of the right lower extremity in 2007 , peripheral vascular disease, past wound bottom rt foot. osteomylitis right pinky toe in past was on iv antibiotics outpatient years ago History of Any Multi-Drug Resistant Organisms: MRSA Year Discovered:: 10/13/18 MDRO Source:: FOOT Past Surgical History: No Surgical Hx Reported, Orthopedic Surgery Additional Past Surgical History / Comment(s): Bilateral femoral bypass surgery, arthroscopic left knee surgery, bilateral inguinal hernia repair, partial left great toe excision/amputation . removal right pinky bone Past Anesthesia/Blood Transfusion Reactions: No Reported Reaction Past Psychological History: Anxiety Additional Psychological History / Comment(s): pt indepedant. 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 Patient is a recent is having difficulties with the adjustment Smoking Status: Current every day smoker Past Alcohol Use History: None Reported Additional Past Alcohol Use History / Comment(s): smoker since age 18 (1972), 1 PPD Past Drug Use History: Marijuana Additional Drug Use History / Comment(s): occ use but none in 5-6 months - Past Family History Brother(s) Family Medical History: Coronary Artery Disease (CAD) Additional Family Medical History / Comment(s): heart attack/cabg Father Family Medical History: No Reported History Mother Family Medical History: Deep Vein Thrombosis (DVT) Medications and Allergies Home Medications Medication Instructions Recorded Confirmed Type Metoprolol Tartrate 25 mg PO DAILY 12/15/14 11/18/18 History Probenecid/Colchicine 1 tab PO BID 07/05/18 11/18/18 History [Probenecid-Colchicine Tabs] Diazepam [Valium] 10 mg PO BID@0900,2100 08/24/18 11/18/18 History Omeprazole 20 mg PO DAILY@0600 08/24/18 11/18/18 History Zinc 50 mg PO DAILY 08/24/18 11/18/18 History Lactose-Reduced Food [Ensure Plus] 237 ml PO TID 09/14/18 11/18/18 History Magnesium Oxide 400 mg PO DAILY 09/14/18 11/18/18 History Atorvastatin [Lipitor] 20 mg PO HS 11/18/18 11/18/18 History Diphenox-Atrop 2.5-0.025 mg 1 tab PO Q6HR PRN 11/18/18 11/18/18 History [Lomotil] Gabapentin [Neurontin] 300 mg PO TID PRN 11/18/18 11/18/18 History Sertraline [Zoloft] 50 mg PO DAILY 11/18/18 11/18/18 History Allergies Allergy/AdvReac Type Severity Reaction Status Date / Time hydromorphone [From Dilaudid] AdvReac Hallucinati Verified 11/18/18 15:53 ons Surgical - Exam Vital Signs Temp Pulse Resp BP Pulse Ox 97.8 F 69 18 111/77 99 11/18/18 13:48 11/18/18 13:48 11/18/18 13:48 11/18/18 13:48 11/18/18 13:48 Palpable pulse in the right femoral popliteal bypass. Large tender mass of the medial right knee. No erythema. Left foot TMA site stable. + capillary refill. - General well developed, well nourished, no distress - Eyes PERRL, normal ocular movement - ENT normal nares - Neck no masses, no bruits - Respiratory normal expansion - Cardiovascular Rhythm: regular - Abdomen Abdomen: soft, non tender - Integumentary no rash, no growths - Psychiatric oriented to time, oriented to person, oriented to place Results - Labs 11/19/18 07:19 11/20/18 08:39 Abnormal Lab Results - Last 24 Hours (Table) 11/20/18 Range/Units 08:39 Chloride 109 H (98-107) mmol/L Calcium 7.2 L (8.4-10.2) mg/dL Total Bilirubin 0.1 L (0.2-1.3) mg/dL ALT 16 L (21-72) U/L Total Protein 5.1 L (6.3-8.2) g/dL Albumin 2.2 L (3.5-5.0) g/dL Microbiology - Last 24 Hours (Table) 11/18/18 16:30 Blood Culture - Preliminary Blood No Growth after 24 hours Diabetes panel 11/20/18 Range/Units 08:39 Sodium 140 (137-145) mmol/L Potassium 3.5 (3.5-5.1) mmol/L Chloride 109 H (98-107) mmol/L Carbon Dioxide 25 (22-30) mmol/L BUN 19 (9-20) mg/dL Creatinine 0.97 (0.66-1.25) mg/dL Glucose 75 (74-99) mg/dL Calcium 7.2 L (8.4-10.2) mg/dL AST 18 (17-59) U/L ALT 16 L (21-72) U/L Alkaline Phosphatase 113 (38-126) U/L Total Protein 5.1 L (6.3-8.2) g/dL Albumin 2.2 L (3.5-5.0) g/dL Calcium panel 11/20/18 Range/Units 08:39 Calcium 7.2 L (8.4-10.2) mg/dL Albumin 2.2 L (3.5-5.0) g/dL Pituitary panel 11/20/18 Range/Units 08:39 Sodium 140 (137-145) mmol/L Potassium 3.5 (3.5-5.1) mmol/L Chloride 109 H (98-107) mmol/L Carbon Dioxide 25 (22-30) mmol/L BUN 19 (9-20) mg/dL Creatinine 0.97 (0.66-1.25) mg/dL Glucose 75 (74-99) mg/dL Calcium 7.2 L (8.4-10.2) mg/dL Adrenal panel 11/20/18 Range/Units 08:39 Sodium 140 (137-145) mmol/L Potassium 3.5 (3.5-5.1) mmol/L Chloride 109 H (98-107) mmol/L Carbon Dioxide 25 (22-30) mmol/L BUN 19 (9-20) mg/dL Creatinine 0.97 (0.66-1.25) mg/dL Glucose 75 (74-99) mg/dL Calcium 7.2 L (8.4-10.2) mg/dL Total Bilirubin 0.1 L (0.2-1.3) mg/dL AST 18 (17-59) U/L ALT 16 L (21-72) U/L Alkaline Phosphatase 113 (38-126) U/L Total Protein 5.1 L (6.3-8.2) g/dL Albumin 2.2 L (3.5-5.0) g/dL Assessment and Plan Assessment: 1. Right medial knee mass 2. Severe peripheral vascular disease 3. Left transmetatarsal amputation wound Plan: Obtained CTA of the lower extremity which demonstrated patent bypass with fluid surrounding the graft without definitive bleeding. Continue antibiotics per ID Will perform exploration and drainage of the mass and possible revision of bypass. Will also check vein mapping today for possible bypass revision. Thank you for the consultation. Please call for any questions.
[2018-11-20] MEDS ORDERED: VANCOMYCIN TROUGH DUE 1 EACH MISC MISCELLANE ONE (20:00)
[2018-11-20] MEDS: ATORVASTATIN 20 MG TAB PO SCH (21:22)
[2018-11-21] MEDS: KETOROLAC 30 MG/ML 1 ML VIAL IVP PRN ×5 (00:30→23:20)
[2018-11-21] MEDS: SODIUM CHLORIDE 0.9% 1,000 ML IV SCH ×2 (02:43→19:34)
[2018-11-21] MEDS: VANCOMYCIN 1,500 MG in SODIUM CHLORIDE 0.9% 250 ML IVPB SCH ×2 (05:14→20:53)
[2018-11-21] MEDS: METOPROLOL TARTRATE 25 MG TAB PO SCH (07:10)
[2018-11-21] MEDS: ZINC SULFATE 220 MG CAP PO SCH (07:10)
[2018-11-21] MEDS: MAGNESIUM OXIDE 400 MG TAB PO SCH (07:10)
[2018-11-21] MEDS: COLCHICIN-PROBENECID 0.5-500MG 1 EACH TAB PO SCH ×2 (07:10→20:53)
[2018-11-21] MEDS: PANTOPRAZOLE 40 MG TABLET PO SCH (07:10)
[2018-11-21] MEDS: SERTRALINE 50 MG TAB PO SCH (07:11)
--- NOTE | 2018-11-21 07:53 | P.PN ---
Subjective Progress Note Date: 11/20/18 63-year-old male has multiple medical troubles including severe peripheral vascular disease and a history of gout. The patient has been following with the vascular surgeon as well as the wound healing Center regarding a nonhealing ulceration to his left foot. Due to gangrenous changes he did have amputation to the left great toe. An open ulceration continued and there was evidence of exposure of the first metatarsal. Local wound care was being utilized in the wound VAC was being attempted. The patient presented to the wound center where he has been receiving ongoing care, in August the patient however is evidence of extensive gangrenous change of the foot was sent to emergency center at admission through his primary care physician.At that time he was seen by vascular surgery and transmetatarsal amputation was performed with a potential conversion to a [id number] amputation if he did not respond well. He fortunately has been doing relatively well with the negative pressure therapy system being applied to the transmetatarsal amputation site. He did require 1 bony revision because of exposure to metatarsal head. They have been showing some improvement. Gen. the patient was starting to have some improvement but he then developed some significant swelling to his right leg distally related to the prior incision from his vascular bypass. Apparently he was seen in the o utpatient setting and aspiration was performed MRSA was isolated. He doesn't. He was placed on some oral antibiotic therapy but despite this the leg worsened became more tight warm erythematous and painful and he noticed that there was also evidence of some swelling to the more proximal aspect of his thigh at the more cephalad aspect of his bypass. Culture was noticed to have evidence of MRSA and vancomycin has been initiated he is quite uncomfortable. We discussed that his vascular surgeon will need to evaluate. 11/20/2018 the patient continues to feel poorly. He has not been evaluated by vascular surgery and there are plans for exploration of his graft given the marked abnormalities of the been seen. Objective - Vital Signs Vital signs: Vital Signs Temp 97.9 F 11/21/18 05:00 Pulse 77 11/21/18 05:00 Resp 18 11/21/18 05:00 BP 92/50 11/21/18 05:00 Pulse Ox 96 11/21/18 05:00 Intake & Output 11/20/18 11/21/18 11/21/18 18:59 06:59 18:59 Intake Total 1040 400 Balance 1040 400 Intake: IV 800 Sodium Chloride 0.9% 1, 800 000 ml @ 100 mls/hr IV . Q10H [facility] Rx#:[id number] Oral 240 400 Other: # Voids 4 1 # Bowel Movements 4 - Exam 63-year-old male quite uncomfortable HEENT: Anicteric conjunctiva are pink and moist nasal mucosa grossly intact without significant lesions, there is no thrush. Neck: The neck is supple without significant lymphadenopathy or thyromegaly. Lungs: Good bilateral air entry without significant crackles or wheezing. There is no significant bronchial sounds. There is no egophony or dullness. Heart: Regular rate and rhythm with an audible S1-S2, no S3 no S4. There is no significant murmur click or rub, PMI was nondisplaced. Abdomen: Positive bowel sounds soft and nontender without palpable masses or organomegaly. There was no guarding or rebound. Extremities: The upper extremities have no evidence of any distinct lesions. Left lower extremity has evidence of the transmetatarsal amputation site. Dressing is removed and a saline dressing is reapplied. The site has evidence of good granulation without significant erythema swelling or worsening tendernes s. The right lower extremity however has the acute changes with significant swelling on the medial aspect of the leg distally on his arterial bypass site it is fluctuant warm erythematous and tender. Has a similar area of swelling proximal near the groin on the anterior medial aspect of the thigh. This area is more firm but is also slightly tender in is not with significant erythema. There is not a large amount of cellulitis, ascending lymphangitis or significant lymphadenopathy being seen into the right leg or groin. No other significant abnormal lymph nodes are seen. Neuro: Patient very sleepy today There are no acute new gross focal sensory motor deficits. - Labs CBC & Chem 7: 11/19/18 07:19 11/20/18 08:39 Labs: Abnormal Lab Results - Last 24 Hours (Table) 11/20/18 Range/Units 08:39 Chloride 109 H (98-107) mmol/L Calcium 7.2 L (8.4-10.2) mg/dL Total Bilirubin 0.1 L (0.2-1.3) mg/dL ALT 16 L (21-72) U/L Total Protein 5.1 L (6.3-8.2) g/dL Albumin 2.2 L (3.5-5.0) g/dL Microbiology - Last 24 Hours (Table) 11/18/18 16:30 Blood Culture - Preliminary Blood No Growth after 48 hours Laboratory Results WBC 9.1 k/uL (3.8-10.6) 11/19/18 07:19 RBC 3.80 m/uL (4.30-5.90) L 11/19/18 07:19 Hgb 10.0 gm/dL (13.0-17.5) L 11/19/18 07:19 Hct 31.9 % (39.0-53.0) L 11/19/18 07:19 MCV 83.8 fL (80.0-100.0) 11/19/18 07:19 MCH 26.2 pg (25.0-35.0) 11/19/18 07: MCHC 31.3 g/dL (31.0-37.0) 11/19/18 07:19 RDW 15.0 % (11.5-15.5) 11/19/18 07:19 Plt Count 395 k/uL (150-450) 11/19/18 07:19 Neutrophils % 73 % 11/19/18 07:19 Lymphocytes % 16 % 11/19/18 07:19 Monocytes % 5 % 11/19/18 07:19 Eosinophils % 5 % 11/19/18 07:19 Basophils % 0 % 11/19/18 07:19 Neutrophils # 6.6 k/uL (1.3-7.7) 11/19/18 07:19 Lymphocytes # 1.5 k/uL (1.0-4.8) 11/19/18 07:19 Monocytes # 0.5 k/uL (0-1.0) 11/19/18 07:19 Eosinophils # 0.4 k/uL (0-0.7) 11/19/18 07:19 Basophils # 0.0 k/uL (0-0.2) 11/19/18 07:19 Hypochromasia Slight 11/19/18 07:19 Sodium 140 mmol/L (137-145) 11/20/18 08:39 Potassium 3.5 mmol/L (3.5-5.1) 11/20/18 08:39 Chloride 109 mmol/L (98-107) H 11/20/18 08:39 Carbon Dioxide 25 mmol/L (22-30) 11/20/18 08:39 Anion Gap 6 mmol/L 11/20/18 08:39 BUN 19 mg/dL (9-20) 11/20/18 08:39 Creatinine 0.97 mg/dL (0.66-1.25) 11/20/18 08:39 Est GFR (CKD-EPI)AfAm >90 (>60 ml/min/1.73 sqM) 11/20/18 08:39 Est GFR (CKD-EPI)NonAf 85 (>60 ml/min/1.73 sqM) 11/20/18 08:39 Glucose 75 mg/dL (74-99) 11/20/18 08:39 Calcium 7.2 mg/dL (8.4-10.2) L 11/20/18 08:39 Total Bilirubin 0.1 mg/dL (0.2-1.3) L 11/20/18 08:39 AST 18 U/L (17-59) 11/20/18 08:39 ALT 16 U/L (21-72) L 11/20/18 08:39 Alkaline Phosphatase 113 U/L (38-126) 11/20/18 08:39 Total Protein 5.1 g/dL (6.3-8.2) L 11/20/18 08:39 Albumin 2.2 g/dL (3.5-5.0) L 11/20/18 08:39 Vancomycin Trough 26.2 ug/mL 11/20/18 19:48 C. difficile (EIA) Intrp Negative (Negative) 11/19/18 19:00 Microbiology 11/18/18 16:30 Blood Blood Culture - Preliminary No Growth after 48 hours Assessment and Plan (1) Leukocytosis Current Visit: Yes Status: Acute Code(s): D72.829 - ELEVATED WHITE BLOOD CELL COUNT, UNSPECIFIED SNOMED Code(s): 425926233 (2) MRSA (methicillin resistant staph aureus) culture positive Narrative/Plan: 63-year-old male who has history of severe peripheral vascular disease having increasing difficulties as of late. He developed a gangrenous changes to the left foot in a transmetatarsal amputation was performed. There is evidence of some bony exposure of the metatarsal head and it appears that her further resection of the f fourth metatarsal head occurred in with the negative pressure therapy system has been showing some steady improvement. The patient were to present to the ER couple days ago with increasing pain and tenderness on the distal aspect of the right leg in conjunction with an area of prior vascular bypass. Aspiration was performed and no evidence of MRSA as per nicely. Vancomycin therapy has been initiated. Vascular surgery consultation is requested. There is concerns to infection of his graft. Is somewhat unusual that there is difficulty at 2 different sites along the graft that are not contiguous. However given his history there is great concern that there could be infection of his graft. Blood cultures are in process. Pain control is being addressed. Patient should limit his ambulation. He is without significant high-grade fevers, he did have leukocytosis at admission that is already improving with hydration and antibiotic therapy. Local care to the transmetatarsal amputation site is requested. 11/20/2018 the patient has been evaluated by his vascular surgeon and there is no marked abnormalities as noted. Plans for surgical exploration of that graft are being made. Antibiotic therapy continues. The patient has some diarrhea with C. diff is comeback is negative. Imodium can be utilized if he is having ongoing diarrhea. Pain control seems to be somewhat adequate. Continue local wound care to the left transmetatarsal amputation site. Current Visit: Yes Status: Acute Code(s): Z22.322 - CARRIER OR SUSPECTED CARRIER OF METHICILLIN RESIS STAPH SNOMED Code(s): 253043123 (3) Partial nontraumatic amputation of left foot Current Visit: No Status: Acute Code(s): Z89.432 - ACQUIRED ABSENCE OF LEFT FOOT SNOMED Code(s): 776888229
[2018-11-21] MEDS: DIAZEPAM 5 MG TAB PO SCH ×2 (08:00→20:48)
[2018-11-21] MEDS: HYDROcodone/APAP 10-325MG 1 EACH TAB PO PRN ×3 (08:01→21:17)
[2018-11-21] MEDS: NICOTINE 21MG/24HR PATCH TRANSDERM SCH ×2 (09:01→17:48)
[2018-11-21] MEDS ORDERED: THROMBIN (BOVINE) 5,000 UNIT VIAL TOPICAL ONE (09:50)
[2018-11-21] MEDS ORDERED: fentaNYL (PF) 50 MCG/ML 2 ML AMP ONE (09:50)
[2018-11-21] MEDS ORDERED: PHENYLEPHRINE-0.9% NACL SYG 1 MG/10 ML SYRINGE ONE (09:50)
[2018-11-21] MEDS ORDERED: GELATIN SPONGE,ABSORB (LARGE) 1 EACH SPONGE TOPICAL ONE (09:50)
[2018-11-21] MEDS ORDERED: SUCCINYLCHOLINE CHLORIDE 100 MG/5 ML SYR IV ONE (09:50)
[2018-11-21] MEDS ORDERED: MIDAZOLAM 2 MG/2 ML VIAL ONE (09:50)
[2018-11-21] MEDS ORDERED: PROPOFOL 10 MG/ML 20 ML VIAL IV ONE (09:50)
[2018-11-21] MEDS ORDERED: SODIUM CHLORIDE 0.9% 1,000 ML IV ONE (09:50)
[2018-11-21] MEDS ORDERED: LIDOCAINE 1% INJ 10MG/ML (20 ML MDV) ONE (09:50)
[2018-11-21] MEDS ORDERED: LACTATED RINGERS 1,000 ML IV ONE (10:41)
--- NOTE | 2018-11-21 11:04 | P.PN ---
Progress Note - Text Progress Note Date: 11/21/18 The patient's wound is examined. There is decreased cellulitis. There is less tenderness at the site today. Status post incision and drainage of right posterior thigh abscess. Patient to receive local wound care and packing. We will follow with you
[2018-11-21] MEDS: MEPERIDINE 50 MG/ML SYRINGE IVP ONE ×2 (11:10→11:21)
--- NOTE | 2018-11-21 11:10 | P.OP ---
Date of Procedure: 11/21/18 Description of Procedure: Preoperative diagnosis: Right medial thigh mass Postoperative diagnosis: Right medial thigh abscess secondary to retained foreign body Procedure: Right medial thigh exploration with removal of foreign body and drainage of abscess Surgeon: Tevin Morel DO Assist: Kishore Patel DO Pathology: Wound culture, foreign body Anesthesia: General Estimated blood loss: 20 mL Complications: None Condition: Stable Disposition: Palpable DP pulse Indications: 63-year-old gentleman who has been currently treated at the Hospital for a right lower leg/medial thigh mass which was previously needle aspirated demonstrating abscess. Since that aspiration the mass has increased in size. He was recently seen in the office and underwent ultrasound which demonstrated no evidence of pseudoaneurysm. Patient states he had had that swelling for several years without any pain and therefore we instructed him if it became more painful or increase in size that he would need a CT angiogram. He then went to the hospital emergency department where he had it drained and cultures came back MRSA. He was seen yesterday and a CT angiogram was obtained demonstrating good flow through the bypass without evidence of pseudoaneurysm but what appeared to be radiopaque coils around the bypass. We did obtain vein mapping just in case a revision bypass was needed and then he was scheduled for exploration and drainage of abscess. Operative narrative: After written informed consent was obtained the patient all risks benefits and competitions were described the patient is brought to the operative suite and laid in a supine position. The area of the legs were prepped and draped in usual sterile fashion after appropriate anesthetic was performed per the anesthesiologist. A timeout was performed in normal fashion antibiotics were administered prior to incision. A vertical incision was then created just over the previous scar for his bypass with a 10 blade scalpel. Upon entrance a large amount of purulence was encountered and suctioned. This was then cultured and sent off for pathology. Upon exploration of the wound there was a Ray-Siria sponge within the wound towards the anastomosis site. This was removed in its entirety along with the radiopaque coils. The wound was then copiously irrigated with antibiotic solution. There was some diffuse oozing around the muscular tissue and subcutaneous tissue and therefore Gelfoam and thrombin was utilized with pressure to attempt to decrease the bleeding. The bypass was interrogated and appeared to be intact without any evidence of active bleeding. There was good pulse within the bypass. The wound was then packed with Betadine soaked Curlex. The skin was then cleansed and dressed with 4 x 4's ABD pad and Kerlix. The patient tolerated his procedure well, had a palpable DP pulse on the right foot and was sent to PACU for recovery.
--- NOTE | 2018-11-21 15:22 | XR ---
EXAMINATION TYPE: XR chest 1V portable DATE OF EXAM: 11/21/2018 COMPARISON: 04/25/2017 HISTORY: Short of breath TECHNIQUE: Single frontal view of the chest is obtained. FINDINGS: Heart and mediastinum are normal. Lungs are clear of infiltrate. There are chest leads. Co stophrenic angles are clear. Bony thorax is intact. IMPRESSION: No active cardiopulmonary disease. There is clearing of minimal subsegmental atelectasis left lung base compared to old exam.
[2018-11-21 15:23] LABS: Basophils % (A) 0 %; Eosinophils # (A) 0.5 k/uL (0-0.7); Eosinophils % (A) 6 %; HCT 24.3 % (39.0-53.0); Hypochromasia Slight; Lymphocytes # (A) 1.2 k/uL (1.0-4.8); Lymphocytes % (A) 16 %; MCHC 32.1 g/dL (31.0-37.0); Monocytes # (A) 0.4 k/uL (0-1.0); Monocytes % (A) 6 %; Neutrophils # (A) 5.4 k/uL (1.3-7.7); Neutrophils % (A) 71 %; Platelet Count 377 k/uL (150-450); WBC 7.6 k/uL (3.8-10.6)
[2018-11-21 15:27] LABS: HGB 7.8 gm/dL (13.0-17.5)
[2018-11-21 16:39] LABS: African American GFR (CKD) >90 (>60 ml/min/1.73 sqM); Anion Gap 4 mmol/L; Blood Urea Nitrogen 15 mg/dL (9-20); Calcium 7.2 mg/dL (8.4-10.2); Carbon Dioxide 26 mmol/L (22-30); Chloride 110 mmol/L (98-107); Glucose 90 mg/dL (74-99); Potassium 3.7 mmol/L (3.5-5.1); Sodium 140 mmol/L (137-145)
--- NOTE | 2018-11-21 17:04 | PN ---
PROGRESS NOTE DATE OF SERVICE: 11/21/2018 I am covering for Dr. Bui. This 63-year-old gentleman who was admitted with possible mass at the surgical site on the leg, underwent right medial thigh exploration, removal of the foreign body and drainage of the abscess by Dr. Morel. Patient being closely monitored. No chest pain. No palpitations. PAST MEDICAL HISTORY: Reviewed. REVIEW OF SYSTEMS: CARDIOVASCULAR: No angina or palpitations. RESPIRATIONS: As mentioned earlier. GASTROINTESTINAL: As mentioned earlier. no dysuria. CENTRAL NERVOUS SYSTEM: No numbness or weakness. CURRENT MEDICATIONS: Reviewed and include: 1. Kindred 10 mg q.4 p.r.n. 2. Lipitor 20 mg q.h.s. 3. Colchicine p.o. b.i.d. 4. Valium 10 mg p.o. b.i.d. 5. Lomotil q.6h p.r.n. 6. Neurontin 300 mg p.o. t.i.d. 7. Toradol 30 mg q.6h. 8. Magnesium oxide 400 mg daily. 9. Lopressor 25 mg p.o. daily. 10.Narcan 0.2 q.2 p.r.n. 11.Habitrol 21 daily. 12.Protonix 40 mg daily. 13.Zoloft 50 mg daily. 14.Sodium bicarb 320 mg p.o. b.i.d. 15.Vancomycin 1.5 g daily. 17.Ambien 5 mg q.h.s. p.r.n. PHYSICAL EXAM: Patient is alert and oriented times three. Pulse 71, blood pressure 120/60, respiration 18, temperature 98 degrees, pulse ox 98% on room air. HEENT is conjunctivae normal. Oral mucosa moist. NECK is no jugular venous distention. No carotid bruit. No lymph node enlargement. CARDIOVASCULAR: S1-S2. No S3, no S4. RESPIRATIONS: Breath sounds diminished in the bases. A few scattered rhonchi. No crackles. ABDOMEN: Soft, nontender. No mass palpable. LEGS status post surgery. NERVOUS SYSTEM: Higher functions as mentioned earlier. Moves all four limbs. No focal deficits. Lymphatics: No lymph nodes palpable in the neck, axillae or groin. SKIN: No ulcer, no rash. No bleeding. JOINTS: No active deforming arthropathy. LABS: WBC 9.2, hemoglobin is 10, sodium 140, potassium 3.5. ASSESSMENT: 1. Right thigh medial abscess secondary to retained foreign body, status post right medial thigh exploration, removal of the foreign body and drainage of abscess. 2. Increased WBC. 3. Anemia. 4. History of chronic obstructive pulmonary disease. 5. History of deep vein thrombosis. 6. Gastroesophageal reflux disease. 7. Hard of hearing. 8. Degenerative joint disease. 9. History of pneumonia. 10.History of chronic bronchitis. 11.Chronic hypoxic respiratory failure. 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 13.Anxiety. 14.History of continued ongoing nicotine dependence. RECOMMENDATIONS AND DISCUSSION: This 63-year-old gentleman who presented with multiple medical issues, at this time I recommend to continue current medications, management and symptomatic treatment. I would recommend continue with broad-spectrum IV antibiotics. Follow the cultures. Otherwise, closely follow with vascular surgery. Continue the rest of medication. Medication reconciliation was done as mentioned earlier. DVT prophylaxis. Further recommendations to follow. I would also recommend repeat labs and replace lytes if they are low. Further recommendations to follow. MMODL / IJN: [id number] / MTDChicho
[2018-11-21] MEDS: HEPARIN SODIUM,PORCINE 5,000 UNIT/ML 1 ML VIAL SQ SCH ×2 (18:52→20:50)
[2018-11-21] MEDS: 0.9% NACL WITH KCL 20 MEQ/L 1,000 ML IV SCH (19:06)
[2018-11-21] MEDS: DIPHENOX-ATROP 2.5-0.025 MG 1 EACH TAB PO PRN (19:37)
[2018-11-21] MEDS: ATORVASTATIN 20 MG TAB PO SCH (20:48)
[2018-11-21] MEDS: ZOLPIDEM 5 MG TAB PO PRN (22:34)
[2018-11-22] MEDS: HYDROcodone/APAP 10-325MG 1 EACH TAB PO PRN ×4 (03:44→18:13)
[2018-11-22] MEDS: KETOROLAC 30 MG/ML 1 ML VIAL IVP PRN ×2 (06:13→11:49)
[2018-11-22] MEDS: PANTOPRAZOLE 40 MG TABLET PO SCH (06:13)
[2018-11-22] MEDS: 0.9% NACL WITH KCL 20 MEQ/L 1,000 ML IV SCH ×2 (06:14→14:27)
[2018-11-22 08:01] LABS: Calcium 6.9 mg/dL (8.4-10.2); Potassium 3.9 mmol/L (3.5-5.1)
[2018-11-22 08:25] LABS: Basophils % (A) 0 %; Eosinophils # (A) 0.3 k/uL (0-0.7); Eosinophils % (A) 6 %; HCT 21.6 % (39.0-53.0); Hypochromasia Slight; Lymphocytes # (A) 1.4 k/uL (1.0-4.8); Lymphocytes % (A) 25 %; MCH 26.6 pg (25.0-35.0); MCHC 31.9 g/dL (31.0-37.0); MCV 83.6 fL (80.0-100.0); Mean Platelet Volume 7.6; Monocytes # (A) 0.4 k/uL (0-1.0); Monocytes % (A) 6 %; Neutrophils # (A) 3.7 k/uL (1.3-7.7); Neutrophils % (A) 63 %; Platelet Count 329 k/uL (150-450); RBC 2.58 m/uL (4.30-5.90); RDW 14.9 % (11.5-15.5); WBC 5.8 k/uL (3.8-10.6)
[2018-11-22 08:39] LABS: HGB 6.9 gm/dL (13.0-17.5)
[2018-11-22] MEDS: NICOTINE 21MG/24HR PATCH TRANSDERM SCH (09:38)
[2018-11-22] MEDS: SERTRALINE 50 MG TAB PO SCH (09:38)
[2018-11-22] MEDS: DIAZEPAM 5 MG TAB PO SCH ×2 (09:39→20:06)
[2018-11-22] MEDS: MAGNESIUM OXIDE 400 MG TAB PO SCH (09:39)
[2018-11-22] MEDS: ZINC SULFATE 220 MG CAP PO SCH (09:39)
[2018-11-22] MEDS: COLCHICIN-PROBENECID 0.5-500MG 1 EACH TAB PO SCH (09:39)
[2018-11-22] MEDS: METOPROLOL TARTRATE 25 MG TAB PO SCH (09:39)
[2018-11-22] MEDS: HEPARIN SODIUM,PORCINE 5,000 UNIT/ML 1 ML VIAL SQ SCH ×2 (09:40→21:53)
--- NOTE | 2018-11-22 10:56 | P.WNDSOAP ---
Subjective Progress Note Date: 11/22/18 Principal diagnosis: Abscess right thigh. Patient states he feels a bit crummy. Patient having dark loose stools. Objective - Vital Signs Vital signs: Vital Signs Temp 97.6 F 11/22/18 08:00 Pulse 72 11/22/18 08:00 Resp 16 11/22/18 08:00 BP 114/60 11/22/18 08:00 Pulse Ox 95 11/22/18 08:00 Intake & Output 11/21/18 11/22/18 11/22/18 18:59 06:59 18:59 Intake Total 1380 Output Total 220 Balance 1160 Weight 81 kg Intake: IV 900 Oral 480 Output: Urine 200 Estimated Blood Loss 20 Other: Voiding Method Toilet Toilet Toilet Urinal Urinal Urinal # Voids 2 # Bowel Movements 2 - Exam Patient seems a bit mentally foggy Afebrile Vital signs stable. Thigh wound is very clean and appears to already be ana. - Labs CBC & Chem 7: 11/22/18 06:34 11/22/18 06:34 Labs: Abnormal Lab Results - Last 24 Hours (Table) 11/21/18 11/21/18 11/22/18 Range/Units 15:12 15:12 06:34 RBC 2.90 L 2.58 L (4.30-5.90) m/uL Hgb 7.8 L D 6.9 L* (13.0-17.5) gm/dL Hct 24.3 L 21.6 L (39.0-53.0) % Chloride 110 H (98-107) mmol/L Calcium 7.2 L (8.4-10.2) mg/dL 11/22/18 Range/Units 06:34 RBC (4.30-5.90) m/uL Hgb (13.0-17.5) gm/dL Hct (39.0-53.0) % Chloride 111 H (98-107) mmol/L Calcium 6.9 L (8.4-10.2) mg/dL Microbiology - Last 24 Hours (Table) 11/21/18 10:31 Gram Stain - Preliminary Leg - Right Wound Culture - Preliminary 11/21/18 10:31 Gram Stain - Preliminary Leg - Right Wound Culture - Preliminary 11/21/18 10:31 Anaerobic Culture - Preliminary Leg - Right 11/21/18 10:31 Anaerobic Culture - Preliminary Leg - Right 11/18/18 16:30 Blood Culture - Preliminary Blood No Growth after 72 hours Assessment and Plan (1) Abscess of right thigh Current Visit: Yes Status: Acute Code(s): L02.415 - CUTANEOUS ABSCESS OF RIGHT LOWER LIMB SNOMED Code(s): 61138756891127638 Plan: The patient is doing quite well hemodynamically post I&D of thigh abscess. I am very concerned about the potential for an ongoing GI bleed. Discussed surgical findings with the patient. We discussed the GI bleed issues with nursing. She will address it immediately with medicine. Have requested that his transfusion be immediate.
[2018-11-22] MEDS ORDERED: FUROSEMIDE 10 MG/ML 2 ML VIAL IV ONE (11:12)
[2018-11-22] MEDS ORDERED: VANCOMYCIN TROUGH DUE 1 EACH MISC MISCELLANE ONE (12:00)
--- NOTE | 2018-11-22 13:02 | CT ---
EXAMINATION TYPE: Normal right hip mild bilateral acetabular DATE OF EXAM: 11/22/2018 COMPARISON: 08/28/2018 HISTORY: Leukocytosis, MRSA and MASS CT DLP: 1083.4 mGycm Automated exposure control for dose reduction was used. TECHNIQUE: CT scan of the head is performed without contrast. FINDINGS: There is no acute intracranial hemorrhage or midline shift identified. There is diffuse v entricular and sulcal prominence consistent with diffuse age-related cerebral atrophy. There are few areas of hypoattenuation centrally within the periventricular white matter, most commonly on the basi s of chronic microangiopathy. Dermal, typically benign calcifications are incidentally seen. Mild ath erosclerosis of the intracranial vasculature. The globes are intact and the visualized sinuses are cl ear. IMPRESSION: No acute intracranial hemorrhage or midline shift. Mild age-related atrophy and minimal nonspecific white matter change.
--- NOTE | 2018-11-22 14:01 | P.CNPUL ---
History of Present Illness Consult date: 11/22/18 Chief complaint: Acute upper GI bleed History of present illness: 63-year-old gentleman who has been currently treated at the Hospital for a right lower leg/medial thigh mass which was previously needle aspirated demonstrating abscess. Since that aspiration the mass has increased in size. He was recently seen in the office and underwent ultrasound which demonstrated no evidence of pseudoaneurysm. Patient states he had had that swelling for several years without any pain and therefore we instructed him if it became more painful or increase in size that he would need a CT angiogram. He then went to the hospital emergency department where he had it drained and cultures came back MRSA. He was seen yesterday and a CT angiogram was obtained demonstrating good flow through the bypass without evidence of pseudoaneurysm but what appeared to be radiopaque coils around the bypass. We did obtain vein mapping just in case a revision bypass was needed and then he was scheduled for exploration and drainage of abscess. The patient was taken to the operating room on 11/21/2018. The patient underwent a right medial thigh exploration with removal of foreign body and drainage of the abscess. Estimated blood loss was 20 mL. This morning, the patient was noted to have some melanotic stool. GI bleeding was suspected. Note that hemoglobin was around 10 at a time of admission and dropped gradually down to 7. and on to 6.9. The patient got transferred to the intensive care unit. Coagulation profile has not been done yet. He admits to take nonsteroidal anti-inflammatory medication for chronic pain. He also admits to have gastric ulcers although he has not had any previous EGD. His colonoscopy was done approximately a year ago. He is currently hemodynamically stable. He is receiving a unit of packed RBC. Follow-up blood work is still pending for now. He was placed on IV Protonix. His occult stool is positive. He continues to have issues with peripheral vascular disease. 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 He has been seen at the wound clinic. Chest x-ray shows no acute abnormalities. Noted the patient also has history of gout and he takes colchicine. Review of Systems Constitutional: Reports as per HPI, Reports fatigue, Reports fever, Reports poor appetite, Reports weakness Eyes: denies as per HPI, denies blurred vision, denies bulging eye, denies decreased vision, denies diplopia, denies discharge, denies dry eye, denies irritation, denies itching, denies pain, denies photophobia, denies loss of peripheral vision, denies loss of vision, denies tunnel vision/blind spots Ears: deny: decreased hearing, ear discharge, earache, tinnitus Ears, nose, mouth and throat: Denies headache, Denies sore throat Breasts: absent: as per HPI, gynecomastia Cardiovascular: Reports as per HPI, Reports claudication, Reports decreased exercise tolerance, Reports dyspnea on exertion, Reports shortness of breath Respiratory: Reports dyspnea Gastrointestinal: Reports as per HPI, Reports melena Genitourinary: Reports as per HPI Musculoskeletal: Reports as per HPI, Reports gait dysfunction, Reports limitation of motion, Reports muscle weakness, Reports prior amputations Musculoskeletal: absent: ankle pain, ankle stiffness, ankle swelling Integumentary: Reports as per HPI, Reports wounds Neurological: Reports paresthesias, Reports tingling, Reports weakness Psychiatric: Reports as per HPI Endocrine: Reports as per HPI, Reports fatigue Hematologic/Lymphatic: Reports as per HPI Allergic/Immunologic: Reports as per HPI Past Medical History Past Medical History: COPD, Deep Vein Thrombosis (DVT), GERD/Reflux, Hearing Disorder / Deafness, Osteoarthritis (OA), Pneumonia, Vascular Disorder Additional Past Medical History / Comment(s): COPD, chronic hypoxic respiratory failure maintained on oxygen 3 L per minute nasal cannula, previous DVT of the right lower extremity thousand and 8, severe peripheral vascular disease, osteomyelitis of the toe, previous left big toe amputation and previous history of left transmetatarsal amputation History of Any Multi-Drug Resistant Organisms: MRSA Date of last positivie culture/infection: 10/13/18 MDRO Source:: FOOT Past Surgical History: No Surgical Hx Reported, Orthopedic Surgery Additional Past Surgical History / Comment(s): Bilateral femoral gluteal bypass surgery, arthroscopic left knee surgery, bilateral inguinal hernia repair, left transmetatarsal amputation of the great toe, Removal right pinky bone Past Anesthesia/Blood Transfusion Reactions: No Reported Reaction Past Psychological History: Anxiety Additional Psychological History / Comment(s): pt indepedant. 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 Patient is a recent is having difficulties with the adjustment Smoking Status: Current every day smoker (The patient is a chronic smoker john ies [id number] smoking history and he is still smoking cigarettes for now.) Past Alcohol Use History: None Reported Additional Past Alcohol Use History / Comment(s): smoker since age 18 (1972), 1 PPD Past Drug Use History: Marijuana Additional Drug Use History / Comment(s): occ use but none in 5-6 months - Past Family History Brother(s) Family Medical History: Coronary Artery Disease (CAD) Additional Family Medical History / Comment(s): heart attack/cabg Father Family Medical History: No Reported History Mother Family Medical History: Deep Vein Thrombosis (DVT) Medications and Allergies Home Medications Medication Instructions Recorded Confirmed Type Metoprolol Tartrate 25 mg PO DAILY 12/15/14 11/18/18 History Probenecid/Colchicine 1 tab PO BID 07/05/18 11/18/18 History [Probenecid-Colchicine Tabs] Diazepam [Valium] 10 mg PO BID@0900,2100 08/24/18 11/18/18 History Omeprazole 20 mg PO DAILY@0600 08/24/18 11/18/18 History Zinc 50 mg PO DAILY 08/24/18 11/18/18 History Lactose-Reduced Food [Ensure Plus] 237 ml PO TID 09/14/18 11/18/18 History Magnesium Oxide 400 mg PO DAILY 09/14/18 11/18/18 History Atorvastatin [Lipitor] 20 mg PO HS 11/18/18 11/18/18 History Diphenox-Atrop 2.5-0.025 mg 1 tab PO Q6HR PRN 11/18/18 11/18/18 History [Lomotil] Gabapentin [Neurontin] 300 mg PO TID PRN 11/18/18 11/18/18 History Sertraline [Zoloft] 50 mg PO DAILY 11/18/18 11/18/18 History Allergies Allergy/AdvReac Type Severity Reaction Status Date / Time hydromorphone [From Dilaudid] AdvReac Hallucinati Verified 11/18/18 15:53 ons Physical Exam Vitals: Vital Signs Temp Pulse Pulse Resp BP BP Pulse Ox 11/22/18 13:16 97.7 F 64 15 97/62 11/22/18 13:10 65 15 100/62 90 L 11/22/18 13:06 97.7 F 64 12 100/62 09/08/19 13:00 97.7 F 64 72 18 101/62 95 11/22/18 12:50 66 20 11/22/18 12:49 68 15 11/22/18 08:00 97.6 F 72 16 114/60 95 11/22/18 04:00 98.0 F 71 18 100/57 98 11/21/18 23:31 78 18 11/21/18 23:29 98.2 F 78 18 112/61 98 11/21/18 20:00 97.9 F 76 18 118/59 95 11/21/18 16:00 97.8 F 70 14 118/58 100 Intake and Output 11/21/18 11/22/18 11/22/18 22:59 06:59 14:59 Intake Total 200 Output Total 0 Balance 200 Intake: IV 100 Sodium Chloride 0.9% 1, 100 000 ml @ 100 mls/hr IV . Q10H [facility] Rx#:[id number] Oral 100 Blood Product 0 Rc As-1 Unit 0 [id number] Output: Urine 0 Other: Voiding Method Toilet Toilet Toilet Urinal Urinal Urinal # Voids 2 # Bowel Movements 2 Weight 81 kg 63-year-old male quite uncomfortable, the patient looks quite pale HEENT: Anicteric conjunctiva are pink and moist nasal mucosa grossly intact without significant lesions, there is no thrush. The patient is conjunctival pallor, no icterus Neck: The neck is supple without significant lymphadenopathy or thyromegaly. Lungs: Good bilateral air entry without significant crackles or wheezing. There is no significant bronchial sounds. There is no egophony or dullness. Heart: Regular rate and rhythm with an audible S1-S2, no S3 no S4. There is no significant murmur click or rub, PMI was nondisplaced. Abdomen: Positive bowel sounds soft and nontender without palpable masses or organomegaly. There was no guarding or rebound. Extremities: The upper extremities have no evidence of any distinct lesions. Left lower extremity has evidence of the transmetatarsal amputation site. Dressing is removed and a saline dressing is reapplied. The site has evidence of good granulation without significant erythema swelling or worsening ten derness. The right lower extremity however has the acute changes with significant swelling on the medial aspect of the leg distally on his arterial bypass site it is fluctuant warm erythematous and tender. Has a similar area of swelling proximal near the groin on the anterior medial aspect of the thigh. This area is more firm but is also slightly tender in is not with significant erythema. There is not a large amount of cellulitis, ascending lymphangitis or significant lymphadenopathy being seen into the right leg or groin. No other significant abnormal lymph nodes are seen. This examination was prior to him having his surgery. Currently the site has been incised and drained and it is packed No active drainage. Lower extremity pulses are diminished at the present. Neuro: Patient very sleepy today There are no acute new gross focal sensory motor deficits. Results - Laboratory Findings CBC and BMP: 11/22/18 06:34 11/22/18 06:34 Abnormal lab findings: Abnormal Labs 11/18/18 11/18/18 11/19/18 14:04 14:04 07:19 WBC 14.7 H RBC 4.22 L Hgb 10.9 L Hct 34.7 L Plt Count 453 H Neutrophils # 11.6 H Basophils # 0.3 H Potassium 3.4 L Chloride Glucose 69 L Calcium 7.7 L 7.1 L Total Bilirubin AST 14 L ALT 12 L 15 L Total Protein 5.3 L Albumin 2.9 L 2.3 L Crossmatch 11/19/18 11/20/18 11/21/18 07:19 08:39 15:12 WBC RBC 3.80 L Hgb 10.0 L Hct 31.9 L Plt Count Neutrophils # Basophils # Potassium Chloride 109 H 110 H Glucose Calcium 7.2 L 7.2 L Total Bilirubin 0.1 L AST ALT 16 L Total Protein 5.1 L Albumin 2.2 L Crossmatch 11/21/18 11/22/18 11/22/18 15:12 06:34 06:34 WBC RBC 2.90 L 2.58 L Hgb 7.8 L D 6.9 L* Hct 24.3 L 21.6 L Plt Count Neutrophils # Basophils # Potassium Chloride 111 H Glucose Calcium 6.9 L Total Bilirubin AST ALT Total Protein Albumin Crossmatch 11/22/18 11:10 WBC RBC Hgb Hct Plt Count Neutrophils # Basophils # Potassium Chloride Glucose Calcium Total Bilirubin AST ALT Total Protein Albumin Crossmatch See Detail - Diagnostic Findings Chest x-ray: image reviewed Assessment and Plan Plan: 1 Acute GI bleed, likely of an upper GI source as the patient has been having melanotic stool with a drop in hemoglobin down to 6.9 and the patient has been taking nonsteroidal anti-inflammatory medications prior to him coming to the hospital. 2 right leg medial thigh abscess secondary to retained foreign body, patient is post exploration and incision and drainage and removal of the foreign body. Cultures are positive for MRSA and the patient on vancomycin and Zosyn 3 severe peripheral vascular disease with a lateral fem-pop bypass surgery 4 Acute blood loss anemia secondary to GI bleed 5 severe COPD with a baseline FEV1 of 39% of predicted maintained on a combination of Advair and Spiriva on outpatient basis and he is a chronic smoker 6 previous history of DVT right lower acuity 2007 7 chronic generalized tenderness or distention depression 8 smoker 9 open wounds at the level of the metatarsal joint on the left 10 previous history of osteomyelitis 11 chronic hypoxic respiratory failure and inpatient limited on oxygen at this per minute nasal cannula 12 gout on colchicine Plan Hold nonsteroidals and antifibrinolytic medication. Hold Toradol. Start IV Protonix. Transfuse 2 units of packed RBC. GI consultation. Ranitidine a.m. Continue Zosyn and vancomycin. Daily dressing changes regarding his right abscess that was successfully drained. His COPD stable. Continue the patient on oxygen.. Nicotine patch. We'll continue to follow.
[2018-11-22] MEDS: PIPERACILLIN-TAZOBACTAM 3.375 GM in SODIUM CHLORIDE 0.9% 100 ML IVPB SCH ×2 (14:02→20:07)
[2018-11-22 14:54] LABS: Glucose,Whole Blood 76 mg/dL (75-99)
[2018-11-22 18:20] LABS: Glucose,Whole Blood 76 mg/dL (75-99)
[2018-11-22 19:12] LABS: HCT 26.5 % (39.0-53.0); Hypochromasia Slight; MCH 28.5 pg (25.0-35.0); MCHC 33.2 g/dL (31.0-37.0); MCV 85.7 fL (80.0-100.0); Mean Platelet Volume 7.2; Platelet Count 362 k/uL (150-450); RBC 3.09 m/uL (4.30-5.90); RDW 15.8 % (11.5-15.5); WBC 7.4 k/uL (3.8-10.6)
[2018-11-22 19:20] LABS: HGB 8.8 gm/dL (13.0-17.5); INR 4.9 (<1.2); Partial Thromboplastin Time 82.1 sec (22.0-30.0); Prothrombin Time 47.5 sec (9.0-12.0)
--- NOTE | 2018-11-22 19:55 | P.CONS ---
History of Present Illness - Reason for Consult Consult date: 11/22/18 GI bleed Requesting physician: Malik Bui - Chief Complaint Swelling in right leg - History of Present Illness 63-year-old male with a medical history significant for severe peripheral vascular disorder, COPD, gastroesophageal reflux disease and osteoarthritis who presented to the hospital for evaluation of swelling in his right thigh. The patient underwent right medial thigh exploration with removal of foreign body and drainage of abscess yesterday. The patient was on the medical floor where he was noted to have dark melanotic colored stool. Hemoglobin initially around 10 on presentation was subsequently found to trend down. Currently he is seen in the ICU where he is receiving a unit of packed red blood cells. The patient denies any previous history of GI bleeding. He denies any abdominal pain. He does report an intermittent history of gastroesophageal reflux disease which she will take Prilosec as needed. No endoscopy for symptoms of GERD or peptic ulcer disease in the past but he has had colonoscopic evaluation with colonoscopy last year significant for polyps per his history. He does report frequent use of NSAID medications over the past 6 months reporting that he has been taking these medications at least daily for treatment of his pain. He denies any nausea or vomiting, hematemesis or coffee-ground emesis. Movements were dark as mentioned and did test positive for occult blood. Review of Systems REVIEW OF SYSTEMS: CONSTITUTIONAL: Denies any fevers, chills, weight change or fatigue. CARDIOVASCULAR: Denies any chest pain, palpitations high or low blood pressures RESPIRATORY: Denies any shortness of breath, hemoptysis or cough. GENITOURINARY: No dysuria or hematuria. MUSCULOSKELETAL: No weakness reported. SKIN: Denies any new rashes or lesions, jaundice or pallor. PSYCHIATRIC: Denies any depression or anxiety. NEUROLOGY: Denies headache, denies any new focal deficits. EARS/NOSE/THROAT: No recent hearing change, congestion, nasal discharge or sore throat. EYES: No pain in eyes, discharge or change in vision. GASTROINTESTINAL: As per HPI. Past Medical History Past Medical History: COPD, Deep Vein Thrombosis (DVT), GERD/Reflux, Hearing Disorder / Deafness, Osteoarthritis (OA), Pneumonia, Vascular Disorder Additional Past Medical History / Comment(s): COPD, chronic hypoxic respiratory failure maintained on oxygen 3 L per minute nasal cannula, previous DVT of the right lower extremity thousand and 8, severe peripheral vascular disease, osteomyelitis of the toe, previous left big toe amputation and previous history of left transmetatarsal amputation History of Any Multi-Drug Resistant Organisms: MRSA Year Discovered:: 10/13/18 MDRO Source:: FOOT Past Surgical History: No Surgical Hx Reported, Orthopedic Surgery Additional Past Surgical History / Comment(s): Bilateral femoral gluteal bypass surgery, arthroscopic left knee surgery, bilateral inguinal hernia repair, left transmetatarsal amputation of the great toe, Removal right pinky bone Past Anesthesia/Blood Transfusion Reactions: No Reported Reaction Past Psychological History: Anxiety Additional Psychological History / Comment(s): pt indepedant. 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 Patient is a recent is having difficulties with the adjustment Smoking Status: Current every day smoker (The patient is a chronic smoker carries 81-juyl-arby smoking history and he is still smoking cigarettes for now.) Past Alcohol Use History: None Reported Additional Past Alcohol Use History / Comment(s): smoker since age 18 (1972), 1 PPD Past Drug Use History: Marijuana Additional Drug Use History / Comment(s): occ use but none in 5-6 months - Past Family History Brother(s) Family Medical History: Coronary Artery Disease (CAD) Additional Family Medical History / Comment(s): heart attack/cabg Father Family Medical History: No Reported History Mother Family Medical History: Deep Vein Thrombosis (DVT) Medications and Allergies Home Medications Medication Instructions Recorded Confirmed Type Metoprolol Tartrate 25 mg PO DAILY 12/15/14 11/18/18 History Probenecid/Colchicine 1 tab PO BID 07/05/18 11/18/18 History [Probenecid-Colchicine Tabs] Diazepam [Valium] 10 mg PO BID@0900,2100 08/24/18 11/18/18 History Omeprazole 20 mg PO DAILY@0600 08/24/18 11/18/18 History Zinc 50 mg PO DAILY 08/24/18 11/18/18 History Lactose-Reduced Food [Ensure Plus] 237 ml PO TID 09/14/18 11/18/18 History Magnesium Oxide 400 mg PO DAILY 09/14/18 11/18/18 History Atorvastatin [Lipitor] 20 mg PO HS 11/18/18 11/18/18 History Diphenox-Atrop 2.5-0.025 mg 1 tab PO Q6HR PRN 11/18/18 11/18/18 History [Lomotil] Gabapentin [Neurontin] 300 mg PO TID PRN 11/18/18 11/18/18 History Sertraline [Zoloft] 50 mg PO DAILY 11/18/18 11/18/18 History Allergies Allergy/AdvReac Type Severity Reaction Status Date / Time hydromorphone [From Dilaudid] AdvReac Hallucinati Verified 11/18/18 15:53 ons Physical Exam Vitals: Vital Signs Temp Pulse Pulse Resp BP BP Pulse Ox 11/22/18 19:00 60 12 123/75 11/22/18 18:00 75 12 120/46 100 11/22/18 17:30 60 12 120/46 11/22/18 17:00 63 10 L 129/74 99 11/22/18 16:53 60 12 129/74 11/22/18 16:45 62 10 L 114/68 98 11/22/18 16:31 97 F L 62 12 116/65 11/22/18 16:30 61 12 98/69 98 11/22/18 16:15 64 12 124/73 92 L 11/22/18 16:00 59 L 72 10 L 126/55 99 11/22/18 15:45 65 12 116/55 100 11/22/18 15:37 97.6 F 12 126/55 11/22/18 15:27 97.6 F 62 14 116/55 11/22/18 15:00 61 11 L 110/61 84 L 11/22/18 14:15 63 15 112/61 11/22/18 14:00 64 16 106/64 94 L 11/22/18 13:46 97.7 F 60 12 106/64 11/22/18 13:45 64 12 98/57 96 11/22/18 13:30 65 15 89/58 98 11/22/18 13:16 97.7 F 64 15 97/62 11/22/18 13:10 65 15 100/62 90 L 11/22/18 13:06 97.7 F 64 12 100/62 11/22/18 13:00 97.7 F 64 72 18 101/62 95 11/22/18 12:50 66 20 11/22/18 12:49 68 15 11/22/18 08:00 97.6 F 72 16 114/60 95 11/22/18 04:00 98.0 F 71 18 100/57 98 11/21/18 23:31 78 18 11/21/18 23:29 98.2 F 78 18 112/61 98 11/21/18 20:00 97.9 F 76 18 118/59 95 Intake and Output 11/22/18 11/22/18 11/22/18 06:59 14:59 22:59 Intake Total 625 1370 Output Total 0 750 Balance 625 620 Intake: IV 200 Sodium Chloride 0.9% 1, 200 000 ml @ 100 mls/hr IV . Q10H [facility] Rx#:[id number] Intake, IV Titration 200 500 Amount 0.9% NaCl with KCl 20 Meq 100 500 /l 1,000 ml @ 100 mls/hr IV .Q10H [facility] Rx#: [id number] Piperacillin-Tazobactam 3 100 .375 gm In Sodium Chloride 0.9% 100 ml @ 25 mls/hr IVPB Q8H [facility] Rx#: [id number] Oral 225 250 Blood Product 0 620 Rc As-1 Unit 0 310 [id number] Rc As-1 Unit 310 [id number] Output: Urine 0 750 Other: Voiding Method Toilet Toilet Urinal Urinal Urinal # Voids 2 2 Weight 81 kg On physical examination, patient appears comfortable in no apparent distress. HEAD: Normocephalic, atraumatic. EYES: No scleral icterus. No conjunctival injection. MOUTH: No lesions, tongue midline. NECK: Trachea midline, no gross abnormalities. CHEST: Decreased air entry bilaterally with no rhonchi rales or wheezes appreciated. HEART: S1-S2 appreciated. ABDOMEN: Soft. Bowel sounds are positive. No organomegaly. No guarding or rigidity. EXTREMITIES: Indication of all toes from his left foot currently bandaged. Wound on the right medial thigh draining serosanguineous fluid currently bandaged. SKIN: No rashes, no jaundice. NEUROLOGIC: Alert and oriented x3. No focal deficits. Results CBC & Chem 7: 11/22/18 18:59 11/22/18 06:34 Labs: Abnormal Lab Results - Last 24 Hours (Table) 11/22/18 11/22/18 11/22/18 Range/Units 06:34 06:34 11:10 RBC 2.58 L (4.30-5.90) m/uL Hgb 6.9 L* (13.0-17.5) gm/dL Hct 21.6 L (39.0-53.0) % RDW (11.5-15.5) % PT (9.0-12.0) sec INR (<1.2) APTT (22.0-30.0) sec Chloride 111 H (98-107) mmol/L Calcium 6.9 L (8.4-10.2) mg/dL Crossmatch See Detail 11/22/18 11/22/18 Range/Units 18:59 18:59 RBC 3.09 L (4.30-5.90) m/uL Hgb 8.8 L D (13.0-17.5) gm/dL Hct 26.5 L (39.0-53.0) % RDW 15.8 H (11.5-15.5) % PT 47.5 H (9.0-12.0) sec INR 4.9 H (<1.2) APTT 82.1 H (22.0-30.0) sec Chloride (98-107) mmol/L Calcium (8.4-10.2) mg/dL Crossmatch Microbiology - Last 24 Hours (Table) 11/18/18 16:30 Blood Culture - Preliminary Blood No Growth after 96 hours 11/21/18 10:31 Gram Stain - Preliminary Leg - Right Wound Culture - Preliminary 11/21/18 10:31 Gram Stain - Preliminary Leg - Right Wound Culture - Preliminary 11/21/18 10:31 Anaerobic Culture - Preliminary Leg - Right 11/21/18 10:31 Anaerobic Culture - Preliminary Leg - Right Chest x-ray: report reviewed (Chest x-ray with no active cardiopulmonary disease) Assessment and Plan (1) Melena Narrative/Plan: 63-year-old male with multiple medical comorbidities currently being treated for an abscess of the right medial thigh with exploratory surgery and removal of foreign body yesterday. GI was consulted for complaints of melena with stool testing positive for occult blood and fall in patient's hemoglobin. Denies any prior history of GI bleed, peptic ulcer disease but does report a baseline of gastroesophageal reflux disease which he takes Prilosec as needed for. Denies any regular blood per rectum with last colonoscopy 1 year ago and no prior upper endoscopies reported. Differential includes gastritis, esophagitis, peptic u lcer disease, AVM or other etiology. Likely component of bleeding from patient's current wound drainage to explain his anemia. Current Visit: Yes Status: Acute Code(s): K92.1 - MELENA SNOMED Code(s): 7573275 (2) Anemia associated with acute blood loss Current Visit: Yes Status: Acute Code(s): D62 - ACUTE POSTHEMORRHAGIC ANEMIA SNOMED Code(s): 156945505 (3) Abscess of right thigh Current Visit: Yes Status: Acute Code(s): L02.415 - CUTANEOUS ABSCESS OF RIGHT LOWER LIMB SNOMED Code(s): 07728698365556331 Plan: Supportive care Okay for diet We'll change Protonix by mouth daily to Protonix twice daily IV Nothing by mouth after midnight Plan for EGD tomorrow Continue to monitor hemoglobin and transfuse as needed Avoid NSAID use Other medical management per the primary team and the firmware developer service Thank you for allowing us to participate in the care of the patient we will continue to follow
[2018-11-22] MEDS: ATORVASTATIN 20 MG TAB PO SCH (20:06)
[2018-11-22] MEDS: PANTOPRAZOLE 40 MG/10 ML VIAL IVP SCH (20:07)
[2018-11-22] MEDS: DIPHENOX-ATROP 2.5-0.025 MG 1 EACH TAB PO PRN (21:31)
[2018-11-22] MEDS: VANCOMYCIN 1,250 MG in SODIUM CHLORIDE 0.9% 250 ML IVPB SCH (21:32)
[2018-11-22] MEDS: ZOLPIDEM 5 MG TAB PO PRN (21:32)
[2018-11-23 00:05] LABS: Glucose,Whole Blood 102 mg/dL (75-99)
--- NOTE | 2018-11-23 00:09 | PN ---
PROGRESS NOTE DATE OF SERVICE: 11/22/2018 I am covering for Dr. Bui. This 63-year-old gentleman admitted with possible mass in the surgical site of the leg, underwent exploration, removal of the foreign body. The patient today has some change in mental status. Patient also developed significant diarrhea with possible GI bleed. Hemoglobin was found to be 6.9, and multiple transfusions has been arranged. Dr. Patel is following the patient closely. The patient will be transferred to ICU at this time. C difficile has been negative. PAST MEDICAL HISTORY: Past medical history reviewed. REVIEW OF SYSTEMS: CARDIOVASCULAR: No angina or palpitations. RESPIRATION: As mentioned earlier. GASTROINTESTINAL: As mentioned earlier. no dysuria. NERVOUS SYSTEM: Diffusely weak. CURRENT MEDICATIONS: Reviewed and include: 1. Oracle 10 mg q.4 p.r.n. 2. Lipitor 20 mg. 3. Colchicine. 4. Valium 10 mg p.o. b.i.d. 5. Lomotil p.r.n. 6. Neurontin 300 mg t.i.d. 7. Heparin 5000 subcu b.i.d. 8. Magnesium oxide 400 mg p.o. daily. 9. Lopressor 25 mg. 10.Narcan. 11.Lipitor. 12.Protonix. 13.Zosyn IV. 14.Zoloft. 15.Sodium bicarb. 16.Vancomycin. 17.Zinc oxide. 18.Ambien. PHYSICAL EXAM: Patient is alert, oriented x2. Pulse 60. Blood pressure is 123/75, respiration 12, temperature normal, pulse ox 100 percent on room air. HEENT: Conjunctivae pale. NECK is no JVD. CARDIOVASCULAR SYSTEM: S1, S2. RESPIRATIONS: Breath sounds diminished in the bases. A few scattered rhonchi and crackles. ABDOMEN: Soft, nontender. No mass palpable. LEGS: Legs status post surgery on the right leg. CENTRAL NERVOUS SYSTEM: Diffusely weak. LABS: WBC 5.8, hemoglobin 6.9, sodium 140, potassium 3.9. ASSESSMENT: 1. Right thigh medial abscess secondary to retained foreign body, status post right medial thigh exploration, removal of the foreign body and as well as drainage of the abscess with possible sepsis present on admission. 2. Increased WBC. 3. Anemia possibly secondary to acute blood loss anemia with gastrointestinal bleed. 4. History of chronic obstructive pulmonary disease. 5. History of deep vein thrombosis. 6. Gastroesophageal reflux disease. 7. Hard of hearing. 8. Degenerative joint disease. 9. History of pneumonia. 10.History of chronic bronchitis. 11.History of chronic hypoxic respiratory failure. 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 13.Anxiety. 14.History of continued ongoing nicotine dependence. RECOMMENDATIONS AND DISCUSSION: Recommend to continue current medications, management and symptomatic treatment. As mentioned earlier, the patient will be transferred to ICU. Transfuse 2 units because of symptomatic anemia and other multiple medical issues and Lasix. Otherwise, we will monitor the hemoglobin closely. Type and cross 2 more units. Gastroenterology consultation for evaluation of the possible GI bleed. Adjust medications. Consult Dr. Marlow for ICU management. Further recommendations to follow. Dr. Bui will follow. Prognosis guarded. Dr. Bui will follow tomorrow. LAZ / MIREILLE: [id number] /
[2018-11-23] MEDS: HYDROcodone/APAP 10-325MG 1 EACH TAB PO PRN ×3 (00:28→20:37)
[2018-11-23] MEDS: PIPERACILLIN-TAZOBACTAM 3.375 GM in SODIUM CHLORIDE 0.9% 100 ML IVPB SCH ×3 (04:07→20:38)
[2018-11-23] MEDS: 0.9% NACL WITH KCL 20 MEQ/L 1,000 ML IV SCH ×3 (04:07→18:18)
[2018-11-23] MEDS ORDERED: DEXTROSE 50% SYRINGE 50 ML IVP STA (05:26)
[2018-11-23 05:34] LABS: Glucose,Whole Blood 68 mg/dL (75-99)
[2018-11-23 05:40] LABS: Basophils % (A) 0 %; Eosinophils # (A) 0.5 k/uL (0-0.7); Eosinophils % (A) 6 %; HCT 28.6 % (39.0-53.0); HGB 9.1 gm/dL (13.0-17.5); Hypochromasia Slight; Lymphocytes # (A) 1.1 k/uL (1.0-4.8); Lymphocytes % (A) 13 %; MCH 27.1 pg (25.0-35.0); MCHC 31.9 g/dL (31.0-37.0); MCV 85.1 fL (80.0-100.0); Mean Platelet Volume 7.1; Monocytes # (A) 0.4 k/uL (0-1.0); Monocytes % (A) 5 %; Neutrophils # (A) 6.1 k/uL (1.3-7.7); Neutrophils % (A) 74 %; Platelet Count 419 k/uL (150-450); RBC 3.36 m/uL (4.30-5.90); RDW 15.3 % (11.5-15.5); WBC 8.2 k/uL (3.8-10.6)
[2018-11-23 06:11] LABS: Glucose,Whole Blood 93 mg/dL (75-99)
[2018-11-23 07:04] LABS: Calcium 7.1 mg/dL (8.4-10.2); Potassium 4.4 mmol/L (3.5-5.1)
[2018-11-23] MEDS ORDERED: HYDROGEN PEROXIDE BOTTLE TOPICAL ONE (07:45)
[2018-11-23] MEDS ORDERED: Magnesium Replacement Protocol 1 EACH MISC MISCELLANE PRN (07:57)
[2018-11-23] MEDS: HEPARIN SODIUM,PORCINE 5,000 UNIT/ML 1 ML VIAL SQ SCH ×2 (08:41→20:38)
[2018-11-23] MEDS: METOPROLOL TARTRATE 25 MG TAB PO SCH (08:51)
[2018-11-23] MEDS: COLCHICIN-PROBENECID 0.5-500MG 1 EACH TAB PO SCH (08:51)
[2018-11-23] MEDS: GABAPENTIN 300 MG CAP PO PRN (08:51)
[2018-11-23] MEDS: NICOTINE 21MG/24HR PATCH TRANSDERM SCH (08:51)
[2018-11-23] MEDS: PANTOPRAZOLE 40 MG/10 ML VIAL IVP SCH (08:51)
[2018-11-23] MEDS: MAGNESIUM OXIDE 400 MG TAB PO SCH (08:52)
[2018-11-23] MEDS: DIAZEPAM 5 MG TAB PO SCH ×2 (08:52→20:36)
[2018-11-23] MEDS: SERTRALINE 50 MG TAB PO SCH (08:53)
[2018-11-23] MEDS: MAGNESIUM SULFATE-D5W PMX 1 GM in DEXTROSE/WATER 1 100ML.BAG IVPB SCH ×3 (08:53→11:16)
[2018-11-23] MEDS: ZINC SULFATE 220 MG CAP PO SCH (08:53)
--- NOTE | 2018-11-23 08:54 | CDI ---
Documentation Clarification Form Date: 11/23/2018 8:30:12 AM From: Mary Walker RN, CCDS Admit Date: 11/20/2018 11:47:00 AM Patient Name: Horacio Garza Visit Number: [id number] ATTENTION: The Clinical Documentation Specialists (CDI) and [facility] Coding Staff appreciate your assistance in clarifying documentation. Please respond to the clarification below the line at the bottom and electronically sign. The CDI & [facility] Coding staff will review the response and follow-up if needed. Please note: Queries are made part of the Legal Health Record. If you have any questions, please contact the author of this message via ITS. Dr. Malik Bui Altered Mental Status was documented in the 11/22/18 Attending progress note. History/Risk Factors: Chronic hypoxic respiratory failure, retained foreign body in surgical wound, possible sepsis, anemia, MRSA Clinical Indicators: 11/18/18 ED Note: Lethargy 11/22/18 Attending progress note: "The patient today has some change in mental status. Patient also developed significant diarrhea with possible GI bleed. Hemoglobin was found to be 6.9, and multiple transfusions." Labs: WBC 14.7/9.1/7.6/7.4, Hgb 10.9/7.8/6.9/8.8/ 9.1 CXR: "There is clearing of minimal subsegmental atelectasis left lung base compared to old exam." CT Brain: age related atrophy Treatment: Pt is on [place], Valium BID, Neurontin TID, Ambien PRN HS IV Vanco PTD 2 units PRBC's transfused 1L IVF bolus In your professional opinion, please clarify the etiology of the Altered Mental Status, if known. Encephalopathy (specify Type- metabolic, anoxic, hepatic, septic, toxic and Underlying Medical Illness) Other condition (please specify) Unable to determine (Last Revision: June 2017) altered mental status is really related to underlying condition such as sepsis and underlying medical illness with hhistory of anemia MTDD
[2018-11-23] MEDS ORDERED: .MORPHINE SULFATE (INJ) 10 MG/ML SYRINGE IVP STA (09:47)
[2018-11-23] MEDS ORDERED: MORPHINE SULFATE 10 MG/ML 1ML VIAL IVP STA (10:32)
--- NOTE | 2018-11-23 11:07 | P.PN ---
Subjective Progress Note Date: 11/23/18 Principal diagnosis: Abscess right thigh Patient feeling better than yesterday. Modest amounts of pain. Lesser amounts of dark stools. Objective - Vital Signs Vital signs: Vital Signs Temp 97.9 F 11/23/18 08:00 Pulse 58 L 11/23/18 10:00 Resp 16 11/23/18 10:00 BP 102/58 11/23/18 10:00 Pulse Ox 93 L 11/23/18 10:00 Intake & Output 11/22/18 11/23/18 11/23/18 18:59 06:59 18:59 Intake Total 1895 1600 625 Output Total 750 1200 Balance 1145 400 625 Weight 82.8 kg Intake: IV 200 500 0.9% NaCl with KCl 20 Meq 300 /l 1,000 ml @ 100 mls/hr IV .Q10H [facility] Rx#: [id number] Magnesium Sulfate-D5w Pmx 200 1 gm In Dextrose/Water 1 100ml.bag @ 100 mls/hr IVPB Q1H [facility] Rx#: [id number] Sodium Chloride 0.9% 1, 200 000 ml @ 100 mls/hr IV . Q10H [facility] Rx#:[id number] Intake, IV Titration 600 1600 125 Amount 0.9% NaCl with KCl 20 Meq 500 1100 100 /l 1,000 ml @ 100 mls/hr IV .Q10H [facility] Rx#: [id number] Lactated Ringers 1,000 ml 100 @ 0 mls/hr IV .[facility] Rx#:[id number] Piperacillin-Tazobactam 3 100 150 25 .375 gm In Sodium Chloride 0.9% 100 ml @ 25 mls/hr IVPB Q8H [facility] Rx#: [id number] Vancomycin 1,250 mg In 250 Sodium Chloride 0.9% 250 ml @ 125 mls/hr IVPB Q24H [facility] Rx#:[id number] Oral 475 Blood Product 620 Rc As-1 Unit 310 [id number] Rc As-1 Unit 310 [id number] Output: Urine 750 1200 Other: Voiding Method Urinal Bedside Commode # Voids 2 1 # Bowel Movements 1 - Exam Vital signs stable. Wound clean and ana. - Labs CBC & Chem 7: 11/23/18 04:49 11/23/18 04:46 Labs: Abnormal Lab Results - Last 24 Hours (Table) 11/22/18 11/22/18 11/22/18 Range/Units 11:10 18:59 18:59 RBC 3.09 L (4.30-5.90) m/uL Hgb 8.8 L D (13.0-17.5) gm/dL Hct 26.5 L (39.0-53.0) % RDW 15.8 H (11.5-15.5) % PT 47.5 H (9.0-12.0) sec INR 4.9 H (<1.2) APTT 82.1 H (22.0-30.0) sec Chloride (98-107) mmol/L Glucose (74-99) mg/dL POC Glucose (mg/dL) (75-99) mg/dL Calcium (8.4-10.2) mg/dL Magnesium (1.6-2.3) mg/dL Crossmatch See Detail 11/22/18 11/23/18 11/23/18 Range/Units 23:53 04:46 04:49 RBC 3.36 L (4.30-5.90) m/uL Hgb 9.1 L (13.0-17.5) gm/dL Hct 28.6 L (39.0-53.0) % RDW (11.5-15.5) % PT (9.0-12.0) sec INR (<1.2) APTT (22.0-30.0) sec Chloride 110 H (98-107) mmol/L Glucose 68 L (74-99) mg/dL POC Glucose (mg/dL) 102 H (75-99) mg/dL Calcium 7.1 L (8.4-10.2) mg/dL Magnesium 1.0 L (1.6-2.3) mg/dL Crossmatch 11/23/18 Range/Units 05:22 RBC (4.30-5.90) m/uL Hgb (13.0-17.5) gm/dL Hct (39.0-53.0) % RDW (11.5-15.5) % PT (9.0-12.0) sec INR (<1.2) APTT (22.0-30.0) sec Chloride (98-107) mmol/L Glucose (74-99) mg/dL POC Glucose (mg/dL) 68 L (75-99) mg/dL Calcium (8.4-10.2) mg/dL Magnesium (1.6-2.3) mg/dL Crossmatch Microbiology - Last 24 Hours (Table) 11/21/18 10:31 Gram Stain - Preliminary Leg - Right Wound Culture - Preliminary Presumptive MRSA 11/21/18 10:31 Gram Stain - Preliminary Leg - Right Wound Culture - Preliminary Presumptive MRSA 11/18/18 16:30 Blood Culture - Preliminary Blood No Growth after 96 hours Assessment and Plan (1) Abscess of right thigh Current Visit: Yes Status: Acute Code(s): L02.415 - CUTANEOUS ABSCESS OF RIGHT LOWER LIMB SNOMED Code(s): 83704069494119786 Plan: Patient doing much better today. We irrigated his wound and repacked it. Continuing antibiotics. For EGD later today.
--- NOTE | 2018-11-23 11:29 | P.PN ---
Subjective Progress Note Date: 11/23/18 Principal diagnosis: Status post removal foreign body. The patient is awake and alert. Indicates his pain is relatively well controlled. The dressings were changed earlier today by Dr. Patel. Wound apparently looks good and has been redressed. The patient is scheduled for endoscopy later this date. Objective - Vital Signs Vital signs: Vital Signs Temp 97.9 F 11/23/18 08:00 Pulse 58 L 11/23/18 10:00 Resp 16 11/23/18 10:00 BP 102/58 11/23/18 10:00 Pulse Ox 93 L 11/23/18 10:00 Intake & Output 11/22/18 11/23/18 11/23/18 18:59 06:59 18:59 Intake Total 1895 1600 625 Output Total 750 1200 Balance 1145 400 625 Weight 82.8 kg Intake: IV 200 500 0.9% NaCl with KCl 20 Meq 300 /l 1,000 ml @ 100 mls/hr IV .Q10H [facility] Rx#: [id number] Magnesium Sulfate-D5w Pmx 200 1 gm In Dextrose/Water 1 100ml.bag @ 100 mls/hr IVPB Q1H [facility] Rx#: [id number] Sodium Chloride 0.9% 1, 200 000 ml @ 100 mls/hr IV . Q10H [facility] Rx#:[id number] Intake, IV Titration 600 1600 125 Amount 0.9% NaCl with KCl 20 Meq 500 1100 100 /l 1,000 ml @ 100 mls/hr IV .Q10H [facility] Rx#: [id number] Lactated Ringers 1,000 ml 100 @ 0 mls/hr IV .ST-MED [facility] Rx#:[id number] Piperacillin-Tazobactam 3 100 150 25 .375 gm In Sodium Chloride 0.9% 100 ml @ 25 mls/hr IVPB Q8H [facility] Rx#: [id number] Vancomycin 1,250 mg In 250 Sodium Chloride 0.9% 250 ml @ 125 mls/hr IVPB Q24H [facility] Rx#:[id number] Oral 475 Blood Product 620 Rc As-1 Unit 310 [id number] Rc As-1 Unit 310 [id number] Output: Urine 750 1200 Other: Voiding Method Urinal Bedside Commode # Voids 2 1 # Bowel Movements 1 - Labs CBC & Chem 7: 11/23/18 04:49 11/23/18 04:46 Labs: Abnormal Lab Results - Last 24 Hours (Table) 11/22/18 11/22/18 11/22/18 Range/Units 11:10 18:59 18:59 RBC 3.09 L (4.30-5.90) m/uL Hgb 8.8 L D (13.0-17.5) gm/dL Hct 26.5 L (39.0-53.0) % RDW 15.8 H (11.5-15.5) % PT 47.5 H (9.0-12.0) sec INR 4.9 H (<1.2) APTT 82.1 H (22.0-30.0) sec Chloride (98-107) mmol/L Glucose (74-99) mg/dL POC Glucose (mg/dL) (75-99) mg/dL Calcium (8.4-10.2) mg/dL Magnesium (1.6-2.3) mg/dL Crossmatch See Detail 11/22/18 11/23/18 11/23/18 Range/Units 23:53 04:46 04:49 RBC 3.36 L (4.30-5.90) m/uL Hgb 9.1 L (13.0-17.5) gm/dL Hct 28.6 L (39.0-53.0) % RDW (11.5-15.5) % PT (9.0-12.0) sec INR (<1.2) APTT (22.0-30.0) sec Chloride 110 H (98-107) mmol/L Glucose 68 L (74-99) mg/dL POC Glucose (mg/dL) 102 H (75-99) mg/dL Calcium 7.1 L (8.4-10.2) mg/dL Magnesium 1.0 L (1.6-2.3) mg/dL Crossmatch 11/23/18 Range/Units 05:22 RBC (4.30-5.90) m/uL Hgb (13.0-17.5) gm/dL Hct (39.0-53.0) % RDW (11.5-15.5) % PT (9.0-12.0) sec INR (<1.2) APTT (22.0-30.0) sec Chloride (98-107) mmol/L Glucose (74-99) mg/dL POC Glucose (mg/dL) 68 L (75-99) mg/dL Calcium (8.4-10.2) mg/dL Magnesium (1.6-2.3) mg/dL Crossmatch Microbiology - Last 24 Hours (Table) 11/21/18 10:31 Gram Stain - Preliminary Leg - Right Wound Culture - Preliminary Presumptive MRSA 11/21/18 10:31 Gram Stain - Preliminary Leg - Right Wound Culture - Preliminary Presumptive MRSA 11/18/18 16:30 Blood Culture - Preliminary Blood No Growth after 96 hours
[2018-11-23] MEDS ORDERED: DEXTROSE 10 % IN WATER 250 ML IV ONE ×2 (11:47→12:23)
[2018-11-23 11:48] LABS: Glucose,Whole Blood 45 mg/dL (75-99)
[2018-11-23] MEDS ORDERED: DEXTROSE 5% IN WATER 1,000 ML IV SCH ×2 (12:00→12:30)
--- NOTE | 2018-11-23 12:08 | P.PN ---
Subjective Progress Note Date: 11/23/18 Principal diagnosis: Acute GI bleeding and right thigh abscess secondary to retained foreign body. 63-year-old gentleman who has been currently treated at the Hospital for a right lower leg/medial thigh mass which was previously needle aspirated demonstrating abscess. Since that aspiration the mass has increased in size. He was recently seen in the office and underwent ultrasound which demonstrated no evidence of pseudoaneurysm. Patient states he had had that swelling for several years without any pain and therefore we instructed him if it became more painful or increase in size that he would need a CT angiogram. He then went to the hospital emergency department where he had it drained and cultures came back MRSA. He was seen yesterday and a CT angiogram was obtained demonstrating good flow through the bypass without evidence of pseudoaneurysm but what appeared to be radiopaque coils around the bypass. We did obtain vein mapping just in case a revision bypass was needed and then he was scheduled for exploration and drainage of abscess. The patient was taken to the operating room on 11/21/2018. The patient underwent a right medial thigh exploration with removal of foreign body and drainage of the abscess. Estimated blood loss was 20 mL. This morning, the patient was noted to have some melanotic stool. GI bleeding was suspected. Note that hemoglobin was around 10 at a time of admission and dropped gradually down to 7. and on to 6.9. The patient got transferred to the intensive care unit. Coagulation profile has not been done yet. He admits to take nonsteroidal anti-inflammatory medication for chronic pain. He also admits to have gastric ulcers although he has not had any previous EGD. His colonoscopy was done approximately a year ago. He is currently hemodynamically stable. He is receiving a unit of packed RBC. Follow-up blood work is still pending for now. He was placed on IV Protonix. His occult stool is positive. He continues to have issues with peripheral vascular disease. 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 He has been seen at the wound clinic. Chest x-ray shows no acute abnormalities. Noted the patient also has history of gout and he takes colchicine. Patient was reevaluated today on 11/23/2018, remains in the ICU, awaiting to have EGD today. Patient seems to be comfortable, he is hemodynamically stable, has been taking nonsteroidal anti-inflammatory medications for chronic pain, and had previous history of gastric ulcers in the past. Received a total of 2 units of packed RBCs since admission, hemoglobin today is 9.1. Remains on IV Protonix. His Hemoccult stool was positive. Seen by gastroenterology, and I believe he is scheduled to undergo EGD today. His last colonoscopy was about a year ago. Continues to have close follow-up by vascular surgery regarding his right thigh abscess related to foreign body retention from previous surgery. Objective - Vital Signs Vital signs: Vital Signs Temp 97.9 F 11/23/18 08:00 Pulse 62 11/23/18 11:00 Resp 14 11/23/18 11:00 BP 117/90 11/23/18 11:00 Pulse Ox 97 11/23/18 11:00 Intake & Output 11/22/18 11/23/18 11/23/18 18:59 06:59 18:59 Intake Total 1895 1600 850 Output Total 750 1200 400 Balance 1145 400 450 Weight 82.8 kg Intake: IV 200 700 0.9% NaCl with KCl 20 Meq 400 /l 1,000 ml @ 100 mls/hr IV .Q10H [facility] Rx#: [id number] Magnesium Sulfate-D5w Pmx 300 1 gm In Dextrose/Water 1 100ml.bag @ 100 mls/hr IVPB Q1H [facility] Rx#: [id number] Sodium Chloride 0.9% 1, 200 000 ml @ 100 mls/hr IV . Q10H [facility] Rx#:[id number] Intake, IV Titration 600 1600 150 Amount 0.9% NaCl with KCl 20 Meq 500 1100 100 /l 1,000 ml @ 100 mls/hr IV .Q10H [facility] Rx#: [id number] Lactated Ringers 1,000 ml 100 @ 0 mls/hr IV .STK-MED ONE Rx#:[id number] Piperacillin-Tazobactam 3 100 150 50 .375 gm In Sodium Chloride 0.9% 100 ml @ 25 mls/hr IVPB Q8H [facility] Rx#: [id number] Vancomycin 1,250 mg In 250 Sodium Chloride 0.9% 250 ml @ 125 mls/hr IVPB Q24H [facility] Rx#:[id number] Oral 475 Blood Product 620 Rc As-1 Unit 310 [id number] Rc As-1 Unit 310 [id number] Output: Urine 750 1200 400 Other: Voiding Method Urinal Bedside Commode Bedside Commode Urinal # Voids 2 1 # Bowel Movements 1 - Exam Physical Exam: Revealed a 63-year-old white male, comfortable, in no distress. Head: Atraumatic, normocephalic. HEENT:[Neck is supple.] [No neck masses.] [No thyromegaly.] [No JVD.] PERRLA, EOMI, no icterus. Chest: [Clear throughout, no crackles, no rhonchi, no wheezes.] Symmetrical chest expansion, no chest wall tenderness. Cardiac Exam: [Normal S1 and S2, no S3 gallop, no murmur.] Abdomen: [Soft, nontender, no megaly, no rebound, no guarding, normal bowel sounds.] Extremities: Left lower extremity has evidence of the transmetatarsal amputation site The site has evidence of good granulation without significant erythema swelling or worsening tenderness. The right lower extremity , Currently the site has been incised and drained and it is packed No active drainage. Lower extremity pulses are diminished at the present. Neurological Exam: [No focal neurologic deficit.] Alert and oriented 3. Psychiatric: Normal mood affect and normal mental status examination. - Labs CBC & Chem 7: 11/23/18 04:49 11/23/18 04:46 Labs: Abnormal Lab Results - Last 24 Hours (Table) 11/22/18 11/22/18 11/22/18 Range/Units 11:10 18:59 18:59 RBC 3.09 L (4.30-5.90) m/uL Hgb 8.8 L D (13.0-17.5) gm/dL Hct 26.5 L (39.0-53.0) % RDW 15.8 H (11.5-15.5) % PT 47.5 H (9.0-12.0) sec INR 4.9 H (<1.2) APTT 82.1 H (22.0-30.0) sec Chloride (98-107) mmol/L Glucose (74-99) mg/dL POC Glucose (mg/dL) (75-99) mg/dL Calcium (8.4-10.2) mg/dL Magnesium (1.6-2.3) mg/dL Crossmatch See Detail 11/22/18 11/23/18 11/23/18 Range/Units 23:53 04:46 04:49 RBC 3.36 L (4.30-5.90) m/uL Hgb 9.1 L (13.0-17.5) gm/dL Hct 28.6 L (39.0-53.0) % RDW (11.5-15.5) % PT (9.0-12.0) sec INR (<1.2) APTT (22.0-30.0) sec Chloride 110 H (98-107) mmol/L Glucose 68 L (74-99) mg/dL POC Glucose (mg/dL) 102 H (75-99) mg/dL Calcium 7.1 L (8.4-10.2) mg/dL Magnesium 1.0 L (1.6-2.3) mg/dL Crossmatch 11/23/18 11/23/18 Range/Units 05:22 11:36 RBC (4.30-5.90) m/uL Hgb (13.0-17.5) gm/dL Hct (39.0-53.0) % RDW (11.5-15.5) % PT (9.0-12.0) sec INR (<1.2) APTT (22.0-30.0) sec Chloride (98-107) mmol/L Glucose (74-99) mg/dL POC Glucose (mg/dL) 68 L 45 L (75-99) mg/dL Calcium (8.4-10.2) mg/dL Magnesium (1.6-2.3) mg/dL Crossmatch Microbiology - Last 24 Hours (Table) 11/21/18 10:31 Gram Stain - Preliminary Leg - Right Wound Culture - Preliminary Presumptive MRSA 11/21/18 10:31 Gram Stain - Preliminary Leg - Right Wound Culture - Preliminary Presumptive MRSA 11/18/18 16:30 Blood Culture - Preliminary Blood No Growth after 96 hours Assessment and Plan Assessment: Impression: 1 acute GI bleeding, most likely upper GI related could be erosive gastritis or could be gastric ulcer disease. EGD is pending. 2 right leg abscess secondary to retained foreign body status post exploration, incision and drainage and removal of foreign body cultures are positive for MRSA, presently on vancomycin and Zosyn 3 history of peripheral vessel occlusive disease and previous bilateral femoral popliteal bypass surgery. 4 acute blood loss anemia secondary to GI bleeding 5 previous history of DVT in right lower extremity 6 severe COPD, FEV1 is in the range of 39% 7 tobacco dependence syndrome 8 previous transmetatarsal amputation of the left foot. 9 previous history of osteomyelitis 10 chronic hypoxic respiratory failure on home O2, related to underlying COPD. Recommendation: Continue to hold nonsteroidal anti-inflammatory drugs, continue Protonix, continue antibiotics as per infectious disease on the case, presently on Zosyn and vancomycin, daily dressing changes of the right thigh abscess, continue bronchodilators for underlying COPD continue oxygen, awaiting the results of the EGD, and if no significant abnormalities noted, patient could be transferred out of the ICU to a regular medical floor later today. We'll continue to follow. Time with Patient: Less than 30
[2018-11-23 12:30] LABS: Glucose,Whole Blood 60 mg/dL (75-99)
[2018-11-23 12:48] LABS: Glucose,Whole Blood 148 mg/dL (75-99)
[2018-11-23 13:47] LABS: Glucose,Whole Blood 109 mg/dL (75-99)
[2018-11-23] MEDS ORDERED: PROPOFOL 10 MG/ML 20 ML VIAL IV ONE (14:56)
--- NOTE | 2018-11-23 15:31 | P.PCN ---
Date of Procedure: 11/23/18 Description of Procedure: BRIEF HISTORY: 63-year-old male with a medical history significant for severe peripheral vascular disorder, COPD, gastroesophageal reflux disease and osteoarthritis who presented to the hospital for evaluation of swelling in his right thigh. The patient underwent right medial thigh exploration with removal of foreign body and drainage of abscess yesterday. The patient was on the medical floor where he was noted to have dark melanotic colored stool. Hemoglobin initially around 10 on presentation was subsequently found to trend down. Currently he is seen in the ICU where he is receiving a unit of packed red blood cells. The patient denies any previous history of GI bleeding. He denies any abdominal pain. He does report an intermittent history of gastroesophageal reflux disease which she will take Prilosec as needed. No endoscopy for symptoms of GERD or peptic ulcer disease in the past but he has had colonoscopic evaluation with colonoscopy last year significant for polyps per his history. He does report frequent use of NSAID medications over the past 6 months reporting that he has been taking these medications at least daily for treatment of his pain. He denies any nausea or vomiting, hematemesis or coffee-ground emesis. Movements were dark as mentioned and did test positive for occult blood. PROCEDURE PERFORMED: Esophagogastroduodenoscopy with biopsy. PREOPERATIVE DIAGNOSIS: Melena, anemia of acute blood loss. ESTIMATED BLOOD LOSS: Minimal. IV sedation per anesthesia. PROCEDURE: After informed consent was obtained, the patient was brought into the endoscopy unit. IV sedation was administered by Anesthesia under continuous monitoring. Initially the Olympus GIF-190 video endoscope was inserted into the mouth. Esophagus intubated without any difficulty. It was gradually advanced into the stomach and duodenum and carefully examined. The bulb and the second part of the duodenum appeared normal, with biopsies taken. The scope at this time was withdrawn to the stomach, adequately insufflated with air, and upon careful examination, mucosa of the antrum, body, cardia and the fundus appeared grossly normal, there was however a superficial nonbleeding ulcer in the pylorus without any high risk stigmata for bleeding which was biopsied. The scope was then withdrawn into the esophagus. Small 2 cm hiatal hernia noted. The GE junction was located at 39 cm from the incisors. The esophagus appeared normal. There were no erosions or ulcerations seen and the patient tolerated the procedure well. IMPRESSION: 1. Nonbleeding superficial ulcer of the pylorus, biopsied. 2. Duodenal biopsies. 3. Small hiatal hernia. RECOMMENDATIONS: The findings of this examination were discussed with the patient in the ICU team. Okay to resume diet. Continue to monitor hemoglobin and transfuse as needed. Protonix switched to 40 mg twice a day orally. No further endoscopic evaluation planned. Await pathology from biopsies. Continue current medical management per the admitting team and the ICU. Avoid NSAID use. The gastroenterology team will stand by, please call us back with any questions or concerns .
[2018-11-23 16:52] LABS: Glucose,Whole Blood 77 mg/dL (75-99)
[2018-11-23] MEDS: PANTOPRAZOLE 40 MG TABLET PO SCH (17:22)
[2018-11-23] MEDS: DIPHENOX-ATROP 2.5-0.025 MG 1 EACH TAB PO PRN (18:31)
[2018-11-23] MEDS: ATORVASTATIN 20 MG TAB PO SCH (20:36)
[2018-11-23 20:51] LABS: Glucose,Whole Blood 67 mg/dL (75-99)
[2018-11-23 21:08] LABS: Glucose,Whole Blood 69 mg/dL (75-99)
[2018-11-23 21:28] LABS: Glucose,Whole Blood 78 mg/dL (75-99)
--- NOTE | 2018-11-23 22:03 | P.PN ---
Subjective Progress Note Date: 11/23/18 63-year-old male has multiple medical troubles including severe peripheral vascular disease and a history of gout. The patient has been following with the vascular surgeon as well as the wound healing Center regarding a nonhealing ulceration to his left foot. Due to gangrenous changes he did have amputation to the left great toe. An open ulceration continued and there was evidence of exposure of the first metatarsal. Local wound care was being utilized in the wound VAC was being attempted. The patient presented to the wound center where he has been receiving ongoing care, in August the patient however is evidence of extensive gangrenous change of the foot was sent to emergency center at admission through his primary care physician.At that time he was seen by vascular surgery and transmetatarsal amputation was performed with a potential conversion to a [id number] amputation if he did not respond well. He fortunately has been doing relatively well with the negative pressure therapy system being applied to the transmetatarsal amputation site. He did require 1 bony revision because of exposure to metatarsal head. They have been showing some improvement. Gen. the patient was starting to have some improvement but he then developed some significant swelling to his right leg distally related to the prior incision from his vascular bypass. Apparently he was seen in the o utpatient setting and aspiration was performed MRSA was isolated. He doesn't. He was placed on some oral antibiotic therapy but despite this the leg worsened became more tight warm erythematous and painful and he noticed that there was also evidence of some swelling to the more proximal aspect of his thigh at the more cephalad aspect of his bypass. Culture was noticed to have evidence of MRSA and vancomycin has been initiated he is quite uncomfortable. We discussed that his vascular surgeon will need to evaluate. 11/20/2018 the patient continues to feel poorly. He has now been evaluated by vascular surgery and there are plans for exploration of his graft given the marked abnormalities of the been seen. 11/23/2018 the patient is status post surgery where there is evidence of the significant infection to the distal aspect of the right thigh graft, foreign body was removed and cultures are showing evidence of staphylococcal infection as expected. Other than some pain at the site he is improving. Objective - Vital Signs Vital signs: Vital Signs Temp 96 F L 11/23/18 16:00 Pulse 64 11/23/18 18:00 Resp 13 11/23/18 18:00 BP 132/76 11/23/18 18:00 Pulse Ox 93 L 11/23/18 18:00 Intake & Output 11/23/18 11/23/18 11/24/18 06:59 18:59 06:59 Intake Total 1600 1750 Output Total 1200 400 Balance 400 1350 Weight 82.8 kg Intake: IV 1600 0.9% NaCl with KCl 20 Meq 600 /l 1,000 ml @ 100 mls/hr IV .Q10H [facility] Rx#: [id number] Dextrose 10 % in Water 400 250 ml @ 999 mls/hr IV ONCE ONE Rx#:[id number] Dextrose 5% in Water 1, 300 000 ml @ 75 mls/hr IV . [id number] [facility] Rx#:[id number] Magnesium Sulfate-D5w Pmx 300 1 gm In Dextrose/Water 1 100ml.bag @ 100 mls/hr IVPB Q1H [facility] Rx#: [id number] Intake, IV Titration 1600 150 Amount 0.9% NaCl with KCl 20 Meq 1100 100 /l 1,000 ml @ 100 mls/hr IV .Q10H [facility] Rx#: [id number] Lactated Ringers 1,000 ml 100 @ 0 mls/hr IV .STK-MED ONE Rx#:[id number] Piperacillin-Tazobactam 3 150 50 .375 gm In Sodium Chloride 0.9% 100 ml @ 25 mls/hr IVPB Q8H [facility] Rx#: [id number] Vancomycin 1,250 mg In 250 Sodium Chloride 0.9% 250 ml @ 125 mls/hr IVPB Q24H [facility] Rx#:[id number] Output: Urine 1200 400 Other: Voiding Method Bedside Commode Bedside Commode Urinal # Voids 1 1 # Bowel Movements 1 1 - Exam 63-year-old male quite uncomfortable HEENT: Anicteric conjunctiva are pink and moist nasal mucosa grossly intact without significant lesions, there is no thrush. Neck: The neck is supple without significant lymphadenopathy or thyromegaly. Lungs: Good bilateral air entry without significant crackles or wheezing. There is no significant bronchial sounds. There is no egophony or dullness. Heart: Regular rate and rhythm with an audible S1-S2, no S3 no S4. There is no significant murmur click or rub, PMI was nondisplaced. Abdomen: Positive bowel sounds soft and nontender without palpable masses or organomegaly. There was no guarding or rebound. Extremities: The upper extremities have no evidence of any distinct lesions. Left lower extremity has evidence of the transmetatarsal amputation site. The site has evidence of good granulation without significant erythema swelling or worsening tenderness. The right lower extremity however has the acute change but is now status post surgical debridement by vascular surgery no lympha denopathy being seen into the right leg or groin. No other significant abnormal lymph nodes are seen. Neuro: Patient very sleepy today There are no acute new gross focal sensory motor deficits. - Labs CBC & Chem 7: 11/23/18 04:49 11/23/18 12:25 Labs: Abnormal Lab Results - Last 24 Hours (Table) 11/22/18 11/23/18 11/23/18 Range/Units 23:53 04:46 04:49 RBC 3.36 L (4.30-5.90) m/uL Hgb 9.1 L (13.0-17.5) gm/dL Hct 28.6 L (39.0-53.0) % Chloride 110 H (98-107) mmol/L Glucose 68 L (74-99) mg/dL POC Glucose (mg/dL) 102 H (75-99) mg/dL Calcium 7.1 L (8.4-10.2) mg/dL Magnesium 1.0 L (1.6-2.3) mg/dL 11/23/18 11/23/18 11/23/18 Range/Units 05:22 11:36 12:18 RBC (4.30-5.90) m/uL Hgb (13.0-17.5) gm/dL Hct (39.0-53.0) % Chloride (98-107) mmol/L Glucose (74-99) mg/dL POC Glucose (mg/dL) 68 L 45 L 60 L (75-99) mg/dL Calcium (8.4-10.2) mg/dL Magnesium (1.6-2.3) mg/dL 11/23/18 11/23/18 11/23/18 Range/Units 12:25 12:36 13:36 RBC (4.30-5.90) m/uL Hgb (13.0-17.5) gm/dL Hct (39.0-53.0) % Chloride (98-107) mmol/L Glucose 186 H (74-99) mg/dL POC Glucose (mg/dL) 148 H 109 H (75-99) mg/dL Calcium (8.4-10.2) mg/dL Magnesium (1.6-2.3) mg/dL 11/23/18 11/23/18 Range/Units 20:39 20:56 RBC (4.30-5.90) m/uL Hgb (13.0-17.5) gm/dL Hct (39.0-53.0) % Chloride (98-107) mmol/L Glucose (74-99) mg/dL POC Glucose (mg/dL) 67 L 69 L (75-99) mg/dL Calcium (8.4-10.2) mg/dL Magnesium (1.6-2.3) mg/dL Microbiology - Last 24 Hours (Table) 11/21/18 10:31 Gram Stain - Final Leg - Right Wound Culture - Final Presumptive MRSA 11/21/18 10:31 Gram Stain - Final Leg - Right Wound Culture - Final Methicillin resist S. aureus 11/18/18 16:30 Blood Culture - Preliminary Blood No Growth after 120 hours 11/22/18 12:03 Blood Culture - Preliminary Blood No Growth after 24 hours Laboratory Results WBC 8.2 k/uL (3.8-10.6) 11/23/18 04:49 RBC 3.36 m/uL (4.30-5.90) L 11/23/18 04:49 Hgb 9.1 gm/dL (13.0-17.5) L 11/23/18 04:49 Hct 28.6 % (39.0-53.0) L 11/23/18 04:49 MCV 85.1 fL (80.0-100.0) 11/23/18 04:49 MCH 27.1 pg (25.0-35.0) 11/23/18 04:49 MCHC 31.9 g/dL (31.0-37.0) 11/23/18 04:49 RDW 15.3 % (11.5-15.5) 11/23/18 04:49 Plt Count 419 k/uL (150-450) 11/23/18 04:49 Neutrophils % 74 % 11/23/18 04:49 Lymphocytes % 13 % 11/23/18 04:49 Monocytes % 5 % 11/23/18 04:49 Eosinophils % 6 % 11/23/18 04:49 Basophils % 0 % 11/23/18 04:49 Neutrophils # 6.1 k/uL (1.3-7.7) 11/23/18 04:49 Lymphocytes # 1.1 k/uL (1.0-4.8) 11/23/18 04:49 Monocytes # 0.4 k/uL (0-1.0) 11/23/18 04:49 Eosinophils # 0.5 k/uL (0-0.7) 11/23/18 04:49 Basophils # 0.0 k/uL (0-0.2) 11/23/18 04:49 Hypochromasia Slight 11/23/18 04:49 PT 47.5 sec (9.0-12.0) H 11/22/18 18:59 INR 4.9 (<1.2) H 11/22/18 18:59 APTT 82.1 sec (22.0-30.0) H 11/22/18 18:59 Sodium 142 mmol/L (137-145) 11/23/18 04:46 Potassium 4.4 mmol/L (3.5-5.1) 11/23/18 04:46 Chloride 110 mmol/L (98-107) H 11/23/18 04:46 Carbon Dioxide 26 mmol/L (22-30) 11/23/18 04:46 Anion Gap 6 mmol/L 11/23/18 04:46 BUN 16 mg/dL (9-20) 11/23/18 04:46 Creatinine 1.10 mg/dL (0.66-1.25) 11/23/18 04:46 Est GFR (CKD-EPI)AfAm 83 (>60 ml/min/1.73 sqM) 11/23/18 04:46 Est GFR (CKD-EPI)NonAf 72 (>60 ml/min/1.73 sqM) 11/23/18 04:46 Glucose 186 mg/dL (74-99) H 11/23/18 12:25 POC Glucose (mg/dL) 78 mg/dL (75-99) 11/23/18 21:17 POC Glu Senior [employer] ADDY Hansen Lexie 11/23/18 21:17 Calcium 7.1 mg/dL (8.4-10.2) L 11/23/18 04:46 Magnesium 1.0 mg/dL (1.6-2.3) L 11/23/18 04:46 Total Bilirubin 0.1 mg/dL (0.2-1.3) L 11/20/18 08:39 AST 18 U/L (17-59) 11/20/18 08:39 ALT 16 U/L (21-72) L 11/20/18 08:39 Alkaline Phosphatase 113 U/L (38-126) 11/20/18 08:39 Total Protein 5.1 g/dL (6.3-8.2) L 11/20/18 08:39 Albumin 2.2 g/dL (3.5-5.0) L 11/20/18 08:39 TSH 3.090 mIU/L (0.465-4.680) 11/22/18 12:03 Stool Occult Blood Positive (Negative) 11/22/18 09:00 Vancomycin Trough 26.7 ug/mL 11/22/18 11:10 C. difficile (EIA) Intrp Negative (Negative) 11/19/18 19:00 Blood Type O Positive 11/22/18 11:10 Blood Type Confirm O Positive 11/22/18 06:34 Blood Type Recheck No Previous Record 11/22/18 11:10 Bld Type Recheck Status CABO Indicated 11/22/18 11:10 Antibody Screen NEGATIVE 11/22/18 11:10 Crossmatch See Detail 11/22/18 11:10 Spec Expiration Date 11/25/2018 - 55611/22/18 11:10 Microbiology 11/21/18 10:31 Leg - Right Gram Stain - Final 11/21/18 10:31 Leg - Right Wound Culture - Final Presumptive MRSA 11/21/18 10:31 Leg - Right Gram Stain - Final 11/21/18 10:31 Leg - Right Wound Culture - Final Methicillin resist S. aureus 11/18/18 16:30 Blood Blood Culture - Preliminary No Growth after 120 hours 11/22/18 12:03 Blood Blood Culture - Preliminary No Growth after 24 hours 11/21/18 10:31 Leg - Right Anaerobic Culture - Preliminary 11/21/18 10:31 Leg - Right Anaerobic Culture - Preliminary Assessment and Plan (1) Leukocytosis Current Visit: Yes Status: Acute Code(s): D72.829 - ELEVATED WHITE BLOOD CELL COUNT, UNSPECIFIED SNOMED Code(s): 226865111 (2) MRSA (methicillin resistant staph aureus) culture positive Narrative/Plan: 63-year-old male who has history of severe peripheral vascular disease having increasing difficulties as of late. He developed a gangrenous changes to the left foot in a transmetatarsal amputation was performed. There is evidence of some bony exposure of the metatarsal head and it appears that her further resection of the f fourth metatarsal head occurred in with the negative pressure therapy system has been showing some steady improvement. The patient were to present to the ER couple days ago with increasing pain and tenderness on the distal aspect of the right leg in conjunction with an area of prior vascular bypass. Aspiration was performed and no evidence of MRSA as per nicely. Vancomycin therapy has been initiated. Vascular surgery consultation is requested. There is concerns to infection of his graft. Is somewhat unusual that there is difficulty at 2 different sites along the graft that are not contiguous. However given his history there is great concern that there could be infection of his graft. Blood cultures are in process. Pain control is being addressed. Patient should limit his ambulation. He is without significant high-grade fevers, he did have leukocytosis at admission that is already improving with hydration and antibiotic therapy. Local care to the transmetatarsal amputation site is requested. 11/20/2018 the patient has been evaluated by his vascular surgeon and there is no marked abnormalities as noted. Plans for surgical exploration of that graft are being made. Antibiotic therapy continues. The patient has some diarrhea with C. diff is comeback is negative. Imodium can be utilized if he is having ongoing diarrhea. Pain control seems to be somewhat adequate. Continue local wound care to the left transmetatarsal amputation site 11/23/2018 the patient started to have some improvement. The surgical site on the right thigh just has some scant serosanguineous drainage. The transmetatarsal amputation site left foot is stable. We'll plan on continuing the antibiotic therapy with vancomycin for treatment of the abscess to the right thigh as well as to the left transmetatarsal amputation site. Appetites improving, no diarrhea C. diff that was checked was negative. Current Visit: Yes Status: Acute Code(s): Z22.322 - CARRIER OR SUSPECTED CARRIER OF METHICILLIN RESIS STAPH SNOMED Code(s): 258189927 (3) Partial nontraumatic amputation of left foot Current Visit: No Status: Acute Code(s): Z89.432 - ACQUIRED ABSENCE OF LEFT FOOT SNOMED Code(s): 904951698
[2018-11-23] MEDS: VANCOMYCIN 1,250 MG in SODIUM CHLORIDE 0.9% 250 ML IVPB SCH (22:13)
--- NOTE | 2018-11-23 22:17 | P.PN ---
Subjective Progress Note Date: 11/23/18 Principal diagnosis: Peripheral vascular disease with history of cellulitis and serosanguineouhe right distal thigh. The patient had worsening cellulitis with incision and drainage of abscess. Due to his having previous bypass graft, expiration of the are was essentially done and foreign body removed. The patient continues to be treated with vancomycin. I do appreciate multiple consultants including infectious disease, vascular surgery with intensivists. Objective - Vital Signs Vital signs: Vital Signs Temp 96 F L 11/23/18 16:00 Pulse 64 11/23/18 18:00 Resp 13 11/23/18 18:00 BP 132/76 11/23/18 18:00 Pulse Ox 93 L 11/23/18 18:00 Intake & Output 11/23/18 11/23/18 11/24/18 06:59 18:59 06:59 Intake Total 1600 1750 Output Total 1200 400 Balance 400 1350 Weight 82.8 kg Intake: IV 1600 0.9% NaCl with KCl 20 Meq 600 /l 1,000 ml @ 100 mls/hr IV .Q10H [facility] Rx#: [id number] Dextrose 10 % in Water 400 250 ml @ 999 mls/hr IV ONCE ONE Rx#:[id number] Dextrose 5% in Water 1, 300 000 ml @ 75 mls/hr IV . [id number] [facility] Rx#:[id number] Magnesium Sulfate-D5w Pmx 300 1 gm In Dextrose/Water 1 100ml.bag @ 100 mls/hr IVPB Q1H [facility] Rx#: [id number] Intake, IV Titration 1600 150 Amount 0.9% NaCl with KCl 20 Meq 1100 100 /l 1,000 ml @ 100 mls/hr IV .Q10H [facility] Rx#: [id number] Lactated Ringers 1,000 ml 100 @ 0 mls/hr IV .STK-MED ONE Rx#:[id number] Piperacillin-Tazobactam 3 150 50 .375 gm In Sodium Chloride 0.9% 100 ml @ 25 mls/hr IVPB Q8H [facility] Rx#: [id number] Vancomycin 1,250 mg In 250 Sodium Chloride 0.9% 250 ml @ 125 mls/hr IVPB Q24H [facility] Rx#:[id number] Output: Urine 1200 400 Other: Voiding Method Bedside Commode Bedside Commode Urinal # Voids 1 1 # Bowel Movements 1 1 - Constitutional General appearance: Present: average body habitus - EENT Eyes: Absent: abnormal pupil - Respiratory Respiratory: bilateral: CTA - Cardiovascular Rhythm: regular Heart sounds: normal: S1, S2 Abnormal Heart Sounds: Absent: S3 Gallop - Gastrointestinal General gastrointestinal: Present: soft - Psychiatric Psychiatric: Present: A&O x's 3. Absent: appropriate affect - Labs CBC & Chem 7: 11/23/18 04:49 11/23/18 12:25 Labs: Abnormal Lab Results - Last 24 Hours (Table) 11/22/18 11/23/18 11/23/18 Range/Units 23:53 04:46 04:49 RBC 3.36 L (4.30-5.90) m/uL Hgb 9.1 L (13.0-17.5) gm/dL Hct 28.6 L (39.0-53.0) % Chloride 110 H (98-107) mmol/L Glucose 68 L (74-99) mg/dL POC Glucose (mg/dL) 102 H (75-99) mg/dL Calcium 7.1 L (8.4-10.2) mg/dL Magnesium 1.0 L (1.6-2.3) mg/dL 11/23/18 11/23/18 11/23/18 Range/Units 05:22 11:36 12:18 RBC (4.30-5.90) m/uL Hgb (13.0-17.5) gm/dL Hct (39.0-53.0) % Chloride (98-107) mmol/L Glucose (74-99) mg/dL POC Glucose (mg/dL) 68 L 45 L 60 L (75-99) mg/dL Calcium (8.4-10.2) mg/dL Magnesium (1.6-2.3) mg/dL 11/23/18 11/23/18 11/23/18 Range/Units 12:25 12:36 13:36 RBC (4.30-5.90) m/uL Hgb (13.0-17.5) gm/dL Hct (39.0-53.0) % Chloride (98-107) mmol/L Glucose 186 H (74-99) mg/dL POC Glucose (mg/dL) 148 H 109 H (75-99) mg/dL Calcium (8.4-10.2) mg/dL Magnesium (1.6-2.3) mg/dL 11/23/18 11/23/18 Range/Units 20:39 20:56 RBC (4.30-5.90) m/uL Hgb (13.0-17.5) gm/dL Hct (39.0-53.0) % Chloride (98-107) mmol/L Glucose (74-99) mg/dL POC Glucose (mg/dL) 67 L 69 L (75-99) mg/dL Calcium (8.4-10.2) mg/dL Magnesium (1.6-2.3) mg/dL Microbiology - Last 24 Hours (Table) 11/21/18 10:31 Gram Stain - Final Leg - Right Wound Culture - Final Presumptive MRSA 11/21/18 10:31 Gram Stain - Final Leg - Right Wound Culture - Final Methicillin resist S. aureus 11/18/18 16:30 Blood Culture - Preliminary Blood No Growth after 120 hours 11/22/18 12:03 Blood Culture - Preliminary Blood No Growth after 24 hours Assessment and Plan (1) Leukocytosis Current Visit: Yes Status: Acute Code(s): D72.829 - ELEVATED WHITE BLOOD CELL COUNT, UNSPECIFIED SNOMED Code(s): 074843163 (2) MRSA (methicillin resistant staph aureus) culture positive Current Visit: Yes Status: Acute Code(s): Z22.322 - CARRIER OR SUSPECTED CARRIER OF METHICILLIN RESIS STAPH SNOMED Code(s): 077172413 (3) Soft tissue mass Current Visit: Yes Status: Acute Code(s): M79.89 - OTHER SPECIFIED SOFT TISSUE DISORDERS SNOMED Code(s): 059165571 (4) COPD (chronic obstructive pulmonary disease) Current Visit: No Status: Acute Code(s): J44.9 - CHRONIC OBSTRUCTIVE PULMO NARY DISEASE, UNSPECIFIED SNOMED Code(s): 24338678 (5) Partial nontraumatic amputation of left foot Current Visit: No Status: Acute Code(s): Z89.432 - ACQUIRED ABSENCE OF LEFT FOOT SNOMED Code(s): 859150725 (6) Seroma Current Visit: No Status: Acute Code(s): NRH5484 - SNOMED Code(s): 487471875 Plan: Continue current regimen of treatment with recent incision and drainage of abscess with MRSA. Check CBC and CMP in a.m. Appropriate pain control. We'll continue to follow. Prognosis has improved secondary to foreign body removal. Time with Patient: Greater than 30
[2018-11-24 00:09] LABS: Glucose,Whole Blood 79 mg/dL (75-99)
[2018-11-24] MEDS: HYDROcodone/APAP 10-325MG 1 EACH TAB PO PRN ×3 (03:05→20:18)
[2018-11-24] MEDS: DIPHENOX-ATROP 2.5-0.025 MG 1 EACH TAB PO PRN (03:06)
[2018-11-24] MEDS: 0.9% NACL WITH KCL 20 MEQ/L 1,000 ML IV SCH ×2 (03:10→17:37)
[2018-11-24] MEDS: PIPERACILLIN-TAZOBACTAM 3.375 GM in SODIUM CHLORIDE 0.9% 100 ML IVPB SCH (04:02)
[2018-11-24 04:41] LABS: Basophils % (A) 0 %; Eosinophils # (A) 0.5 k/uL (0-0.7); Eosinophils % (A) 8 %; HCT 26.5 % (39.0-53.0); HGB 8.8 gm/dL (13.0-17.5); Lymphocytes # (A) 0.9 k/uL (1.0-4.8); Lymphocytes % (A) 14 %; MCH 28.2 pg (25.0-35.0); MCHC 33.3 g/dL (31.0-37.0); MCV 84.5 fL (80.0-100.0); Mean Platelet Volume 6.7; Monocytes # (A) 0.3 k/uL (0-1.0); Monocytes % (A) 5 %; Neutrophils # (A) 4.8 k/uL (1.3-7.7); Neutrophils % (A) 72 %; Platelet Count 385 k/uL (150-450); RBC 3.14 m/uL (4.30-5.90); RDW 15.5 % (11.5-15.5); WBC 6.7 k/uL (3.8-10.6)
[2018-11-24 05:03] LABS: African American GFR (CKD) >90 (>60 ml/min/1.73 sqM); Anion Gap 5 mmol/L; Blood Urea Nitrogen 11 mg/dL (9-20); Calcium 7.4 mg/dL (8.4-10.2); Carbon Dioxide 25 mmol/L (22-30); Chloride 109 mmol/L (98-107); Glucose 75 mg/dL (74-99); Magnesium 1.5 mg/dL (1.6-2.3); Potassium 4.5 mmol/L (3.5-5.1); Sodium 139 mmol/L (137-145)
[2018-11-24 07:04] LABS: Glucose,Whole Blood 51 mg/dL (75-99)
[2018-11-24] MEDS ORDERED: DEXTROSE 10 % IN WATER 250 ML BAG IV STA (07:13)
[2018-11-24 07:24] LABS: Glucose,Whole Blood 49 mg/dL (75-99)
[2018-11-24 08:12] LABS: Glucose,Whole Blood 155 mg/dL (75-99)
[2018-11-24] MEDS ORDERED: MORPHINE SULFATE 4 MG/ML SYRINGE IVP PRN (08:35)
[2018-11-24] MEDS: NICOTINE 21MG/24HR PATCH TRANSDERM SCH (08:53)
[2018-11-24] MEDS: HEPARIN SODIUM,PORCINE 5,000 UNIT/ML 1 ML VIAL SQ SCH ×2 (08:53→20:13)
[2018-11-24] MEDS: PANTOPRAZOLE 40 MG TABLET PO SCH ×2 (08:53→17:37)
[2018-11-24] MEDS: COLCHICIN-PROBENECID 0.5-500MG 1 EACH TAB PO SCH (08:54)
[2018-11-24] MEDS: METOPROLOL TARTRATE 25 MG TAB PO SCH (08:54)
[2018-11-24] MEDS: DIAZEPAM 5 MG TAB PO SCH ×2 (08:54→20:13)
[2018-11-24] MEDS: MAGNESIUM OXIDE 400 MG TAB PO SCH (08:54)
[2018-11-24] MEDS: ZINC SULFATE 220 MG CAP PO SCH (08:54)
[2018-11-24] MEDS: SERTRALINE 50 MG TAB PO SCH (08:54)
--- NOTE | 2018-11-24 09:45 | P.PN ---
Subjective Progress Note Date: 11/24/18 Principal diagnosis: s/p right medial thigh abscess drainage patient seen and examined. Doing well. Recent EGD yesterday. Pain in lower extremity stable and controlled. Packing changed yesterday without issue by Dr. Patel. No fevers, chills, nausea, vomiting or chest pain. Objective - Vital Signs Vital signs: Vital Signs Temp 98.1 F 11/24/18 08:00 Pulse 64 11/24/18 08:00 Resp 16 11/24/18 08:00 BP 104/58 11/24/18 08:00 Pulse Ox 94 L 11/24/18 08:00 Intake & Output 11/23/18 11/24/18 11/24/18 18:59 06:59 18:59 Intake Total 1750 1650 Output Total 400 Balance 1350 1650 Intake: IV 1600 1650 0.9% NaCl with KCl 20 Meq 600 1200 /l 1,000 ml @ 100 mls/hr IV .Q10H [facility] Rx#: [id number] Dextrose 10 % in Water 400 250 ml @ 999 mls/hr IV ONCE ONE Rx#:[id number] Dextrose 5% in Water 1, 300 000 ml @ 75 mls/hr IV . [id number] [facility] Rx#:[id number] Magnesium Sulfate-D5w Pmx 300 1 gm In Dextrose/Water 1 100ml.bag @ 100 mls/hr IVPB Q1H [facility] Rx#: [id number] Piperacillin-Tazobactam 3 200 .375 gm In Sodium Chloride 0.9% 100 ml @ 25 mls/hr IVPB Q8H [facility] Rx#: [id number] Vancomycin 1,250 mg In 250 Sodium Chloride 0.9% 250 ml @ 125 mls/hr IVPB Q24H [facility] Rx#:[id number] Intake, IV Titration 150 Amount 0.9% NaCl with KCl 20 Meq 100 /l 1,000 ml @ 100 mls/hr IV .Q10H [facility] Rx#: [id number] Piperacillin-Tazobactam 3 50 .375 gm In Sodium Chloride 0.9% 100 ml @ 25 mls/hr IVPB Q8H [facility] Rx#: [id number] Output: Urine 400 Other: Voiding Method Bedside Commode Bedside Commode Urinal Urinal # Voids 1 1 # Bowel Movements 1 1 - Exam right medial thigh incision site is clean. There is dressings in place that have serosanguinous drainage. palpable peripheral pulses right foot. left TMA site dressing intact. - Labs CBC & Chem 7: 11/24/18 04:10 11/24/18 04:10 Labs: Abnormal Lab Results - Last 24 Hours (Table) 11/23/18 11/23/18 11/23/18 Range/Units 11:36 12:18 12:25 RBC (4.30-5.90) m/uL Hgb (13.0-17.5) gm/dL Hct (39.0-53.0) % Lymphocytes # (1.0-4.8) k/uL Chloride (98-107) mmol/L Glucose 186 H (74-99) mg/dL POC Glucose (mg/dL) 45 L 60 L (75-99) mg/dL Calcium (8.4-10.2) mg/dL Magnesium (1.6-2.3) mg/dL 11/23/18 11/23/18 11/23/18 Range/Units 12:36 13:36 20:39 RBC (4.30-5.90) m/uL Hgb (13.0-17.5) gm/dL Hct (39.0-53.0) % Lymphocytes # (1.0-4.8) k/uL Chloride (98-107) mmol/L Glucose (74-99) mg/dL POC Glucose (mg/dL) 148 H 109 H 67 L (75-99) mg/dL Calcium (8.4-10.2) mg/dL Magnesium (1.6-2.3) mg/dL 11/23/18 11/24/18 11/24/18 Range/Units 20:56 04:10 04:10 RBC 3.14 L (4.30-5.90) m/uL Hgb 8.8 L (13.0-17.5) gm/dL Hct 26.5 L (39.0-53.0) % Lymphocytes # 0.9 L (1.0-4.8) k/uL Chloride 109 H (98-107) mmol/L Glucose (74-99) mg/dL POC Glucose (mg/dL) 69 L (75-99) mg/dL Calcium 7.4 L (8.4-10.2) mg/dL Magnesium 1.5 L (1.6-2.3) mg/dL 11/24/18 11/24/18 11/24/18 Range/Units 06:53 07:12 08:01 RBC (4.30-5.90) m/uL Hgb (13.0-17.5) gm/dL Hct (39.0-53.0) % Lymphocytes # (1.0-4.8) k/uL Chloride (98-107) mmol/L Glucose (74-99) mg/dL POC Glucose (mg/dL) 51 L 49 L 155 H (75-99) mg/dL Calcium (8.4-10.2) mg/dL Magnesium (1.6-2.3) mg/dL Microbiology - Last 24 Hours (Table) 11/21/18 10:31 Anaerobic Culture - Preliminary Leg - Right 11/21/18 10:31 Anaerobic Culture - Preliminary Leg - Right 11/21/18 10:31 Gram Stain - Final Leg - Right Wound Culture - Final Presumptive MRSA 11/21/18 10:31 Gram Stain - Final Leg - Right Wound Culture - Final Methicillin resist S. aureus 11/18/18 16:30 Blood Culture - Preliminary Blood No Growth after 120 hours 11/22/18 12:03 Blood Culture - Preliminary Blood No Growth after 24 hours Assessment and Plan Assessment: 1. Right medial knee mass 2. Severe peripheral vascular disease 3. Left transmetatarsal amputation wound 4. Melena with blood loss anemia Plan: Continue packing changes and local wound care per Dr. Patel. Your medical management
[2018-11-24 10:40] VITALS: BMI 24.0
[2018-11-24] MEDS ORDERED: MORPHINE SULFATE 4 MG/ML SYRINGE IVP STA (11:14)
[2018-11-24 12:08] LABS: Glucose,Whole Blood 82 mg/dL (75-99)
--- NOTE | 2018-11-24 12:08 | P.PN ---
Subjective Progress Note Date: 11/24/18 Principal diagnosis: Abscess right thigh with MRSA Patient seems clear and is going to be transferred to a regular nursing floor when bed available. Leg pain mainly with packing in dressing change. Objective - Vital Signs Vital signs: Vital Signs Temp 98.1 F 11/24/18 08:00 Pulse 64 11/24/18 08:00 Resp 16 11/24/18 08:00 BP 104/58 11/24/18 08:00 Pulse Ox 94 L 11/24/18 08:00 Intake & Output 11/23/18 11/24/18 11/24/18 18:59 06:59 18:59 Intake Total 1750 1650 Output Total 400 Balance 1350 1650 Weight 82.8 kg Intake: IV 1600 1650 0.9% NaCl with KCl 20 Meq 600 1200 /l 1,000 ml @ 100 mls/hr IV .Q10H [facility] Rx#: [id number] Dextrose 10 % in Water 400 250 ml @ 999 mls/hr IV ONCE ONE Rx#:[id number] Dextrose 5% in Water 1, 300 000 ml @ 75 mls/hr IV . [id number] [facility] Rx#:[id number] Magnesium Sulfate-D5w Pmx 300 1 gm In Dextrose/Water 1 100ml.bag @ 100 mls/hr IVPB Q1H [facility] Rx#: [id number] Piperacillin-Tazobactam 3 200 .375 gm In Sodium Chloride 0.9% 100 ml @ 25 mls/hr IVPB Q8H [facility] Rx#: [id number] Vancomycin 1,250 mg In 250 Sodium Chloride 0.9% 250 ml @ 125 mls/hr IVPB Q24H [facility] Rx#:[id number] Intake, IV Titration 150 Amount 0.9% NaCl with KCl 20 Meq 100 /l 1,000 ml @ 100 mls/hr IV .Q10H [facility] Rx#: [id number] Piperacillin-Tazobactam 3 50 .375 gm In Sodium Chloride 0.9% 100 ml @ 25 mls/hr IVPB Q8H [facility] Rx#: [id number] Output: Urine 400 Other: Voiding Method Bedside Commode Bedside Commode Urinal Urinal # Voids 1 1 # Bowel Movements 1 1 - Exam The wound is clean and continues to be more firm in its periphery. No purulence on packing when removed. - Labs CBC & Chem 7: 11/24/18 04:10 11/24/18 04:10 Labs: Abnormal Lab Results - Last 24 Hours (Table) 11/23/18 11/23/18 11/23/18 Range/Units 12:18 12:25 12:36 RBC (4.30-5.90) m/uL Hgb (13.0-17.5) gm/dL Hct (39.0-53.0) % Lymphocytes # (1.0-4.8) k/uL Chloride (98-107) mmol/L Glucose 186 H (74-99) mg/dL POC Glucose (mg/dL) 60 L 148 H (75-99) mg/dL Calcium (8.4-10.2) mg/dL Magnesium (1.6-2.3) mg/dL 11/23/18 11/23/18 11/23/18 Range/Units 13:36 20:39 20:56 RBC (4.30-5.90) m/uL Hgb (13.0-17.5) gm/dL Hct (39.0-53.0) % Lymphocytes # (1.0-4.8) k/uL Chloride (98-107) mmol/L Glucose (74-99) mg/dL POC Glucose (mg/dL) 109 H 67 L 69 L (75-99) mg/dL Calcium (8.4-10.2) mg/dL Magnesium (1.6-2.3) mg/dL 11/24/18 11/24/18 11/24/18 Range/Units 04:10 04:10 06:53 RBC 3.14 L (4.30-5.90) m/uL Hgb 8.8 L (13.0-17.5) gm/dL Hct 26.5 L (39.0-53.0) % Lymphocytes # 0.9 L (1.0-4.8) k/uL Chloride 109 H (98-107) mmol/L Glucose (74-99) mg/dL POC Glucose (mg/dL) 51 L (75-99) mg/dL Calcium 7.4 L (8.4-10.2) mg/dL Magnesium 1.5 L (1.6-2.3) mg/dL 11/24/18 11/24/18 Range/Units 07:12 08:01 RBC (4.30-5.90) m/uL Hgb (13.0-17.5) gm/dL Hct (39.0-53.0) % Lymphocytes # (1.0-4.8) k/uL Chloride (98-107) mmol/L Glucose (74-99) mg/dL POC Glucose (mg/dL) 49 L 155 H (75-99) mg/dL Calcium (8.4-10.2) mg/dL Magnesium (1.6-2.3) mg/dL Microbiology - Last 24 Hours (Table) 11/21/18 10:31 Anaerobic Culture - Preliminary Leg - Right 11/21/18 10:31 Anaerobic Culture - Preliminary Leg - Right 11/21/18 10:31 Gram Stain - Final Leg - Right Wound Culture - Final Presumptive MRSA 11/21/18 10:31 Gram Stain - Final Leg - Right Wound Culture - Final Methicillin resist S. aureus 11/18/18 16:30 Blood Culture - Preliminary Blood No Growth after 120 hours 11/22/18 12:03 Blood Culture - Preliminary Blood No Growth after 24 hours Assessment and Plan (1) Abscess of right thigh Current Visit: Yes Status: Acute Code(s): L02.415 - CUTANEOUS ABSCESS OF RIGHT LOWER LIMB SNOMED Code(s): [id number] Plan: Continues to improve in the wound after I&D of thigh abscess and removal of foreign body. Dressing change went well. Continue wet to dry Kerlix for the time being.
--- NOTE | 2018-11-24 12:18 | P.PN ---
Subjective Progress Note Date: 11/24/18 Principal diagnosis: Acute GI bleeding and right thigh abscess secondary to retained foreign body. 63-year-old gentleman who has been currently treated at the Hospital for a right lower leg/medial thigh mass which was previously needle aspirated demonstrating abscess. Since that aspiration the mass has increased in size. He was recently seen in the office and underwent ultrasound which demonstrated no evidence of pseudoaneurysm. Patient states he had had that swelling for several years without any pain and therefore we instructed him if it became more painful or increase in size that he would need a CT angiogram. He then went to the hospital emergency department where he had it drained and cultures came back MRSA. He was seen yesterday and a CT angiogram was obtained demonstrating good flow through the bypass without evidence of pseudoaneurysm but what appeared to be radiopaque coils around the bypass. We did obtain vein mapping just in case a revision bypass was needed and then he was scheduled for exploration and drainage of abscess. The patient was taken to the operating room on 11/21/2018. The patient underwent a right medial thigh exploration with removal of foreign body and drainage of the abscess. Estimated blood loss was 20 mL. This morning, the patient was noted to have some melanotic stool. GI bleeding was suspected. Note that hemoglobin was around 10 at a time of admission and dropped gradually down to 7. and on to 6.9. The patient got transferred to the intensive care unit. Coagulation profile has not been done yet. He admits to take nonsteroidal anti-inflammatory medication for chronic pain. He also admits to have gastric ulcers although he has not had any previous EGD. His colonoscopy was done approximately a year ago. He is currently hemodynamically stable. He is receiving a unit of packed RBC. Follow-up blood work is still pending for now. He was placed on IV Protonix. His occult stool is positive. He continues to have issues with peripheral vascular disease. 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 He has been seen at the wound clinic. Chest x-ray shows no acute abnormalities. Noted the patient also has history of gout and he takes colchicine. Patient was reevaluated today on 11/23/2018, remains in the ICU, awaiting to have EGD today. Patient seems to be comfortable, he is hemodynamically stable, has been taking nonsteroidal anti-inflammatory medications for chronic pain, and had previous history of gastric ulcers in the past. Received a total of 2 units of packed RBCs since admission, hemoglobin today is 9.1. Remains on IV Protonix. His Hemoccult stool was positive. Seen by gastroenterology, and I believe he is scheduled to undergo EGD today. His last colonoscopy was about a year ago. Continues to have close follow-up by vascular surgery regarding his right thigh abscess related to foreign body retention from previous surgery. Reevaluated today on 11/24/2018, patient is doing quite well, relatively asymptomatic, he will have dressing changes on his right thigh wound by Dr. Patel later today. Patient is hemodynamically stable, EGD yesterday showed nonbleeding superficial ulcer of the pylorus. Hence the patient was kept on Protonix 40 mg twice a day, and no need for any further endoscopic evaluation. Biopsies of the superficial ulcer are pending patient also had some duodenal biopsies. Advised by GI to avoid nonsteroidal anti-inflammatory drugs. Labs including CBC were reviewed today hemoglobin is 8.8 today renal profile is normal. Electrolytes are normal. Objective - Vital Signs Vital signs: Vital Signs Temp 98.1 F 11/24/18 08:00 Pulse 64 11/24/18 08:00 Resp 16 11/24/18 08:00 BP 104/58 11/24/18 08:00 Pulse Ox 94 L 11/24/18 08:00 Intake & Output 11/23/18 11/24/18 11/24/18 18:59 06:59 18:59 Intake Total 1750 1650 Output Total 400 Balance 1350 1650 Weight 82.8 kg Intake: IV 1600 1650 0.9% NaCl with KCl 20 Meq 600 1200 /l 1,000 ml @ 100 mls/hr IV .Q10H [facility] Rx#: [id number] Dextrose 10 % in Water 400 250 ml @ 999 mls/hr IV ONCE ONE Rx#:[id number] Dextrose 5% in Water 1, 300 000 ml @ 75 mls/hr IV . [id number] [facility] Rx#:[id number] Magnesium Sulfate-D5w Pmx 300 1 gm In Dextrose/Water 1 100ml.bag @ 100 mls/hr IVPB Q1H [facility] Rx#: [id number] Piperacillin-Tazobactam 3 200 .375 gm In Sodium Chloride 0.9% 100 ml @ 25 mls/hr IVPB Q8H [facility] Rx#: [id number] Vancomycin 1,250 mg In 250 Sodium Chloride 0.9% 250 ml @ 125 mls/hr IVPB Q24H [facility] Rx#:[id number] Intake, IV Titration 150 Amount 0.9% NaCl with KCl 20 Meq 100 /l 1,000 ml @ 100 mls/hr IV .Q10H [facility] Rx#: [id number] Piperacillin-Tazobactam 3 50 .375 gm In Sodium Chloride 0.9% 100 ml @ 25 mls/hr IVPB Q8H [facility] Rx#: [id number] Output: Urine 400 Other: Voiding Method Bedside Commode Bedside Commode Urinal Urinal # Voids 1 1 # Bowel Movements 1 1 - Exam Physical Exam: Revealed a 63-year-old white male, asymptomatic, pleasant, in no distress. Head: Atraumatic, normocephalic. HEENT:[Neck is supple.] [No neck masses.] [No thyromegaly.] [No JVD.] PERRLA, EOMI, no icterus. Chest: [Clear throughout, no crackles, no rhonchi, no wheezes.] Symmetrical chest expansion, no chest wall tenderness. Cardiac Exam: [Normal S1 and S2, no S3 gallop, no murmur.] Abdomen: [Soft, nontender, no megaly, no rebound, no guarding, normal bowel sounds.] Extremities: Left lower extremity has evidence of the transmetatarsal amputation site The site has evidence of good granulation without significant erythema swelling or worsening tenderness. The right lower extremity , Currently the site has been incised and drained and it is packed, serous drainage is noted and soaking the dressing.. Lower extremity pulses are diminished at the present. Neurological Exam: [No focal neurologic deficit.] Alert and oriented 3. Psychiatric: Normal mood affect and normal mental status examination. - Labs CBC & Chem 7: 11/24/18 04:10 11/24/18 04:10 Labs: Abnormal Lab Results - Last 24 Hours (Table) 11/23/18 11/23/18 11/23/18 Range/Units 12:18 12:25 12:36 RBC (4.30-5.90) m/uL Hgb (13.0-17.5) gm/dL Hct (39.0-53.0) % Lymphocytes # (1.0-4.8) k/uL Chloride (98-107) mmol/L Glucose 186 H (74-99) mg/dL POC Glucose (mg/dL) 60 L 148 H (75-99) mg/dL Calcium (8.4-10.2) mg/dL Magnesium (1.6-2.3) mg/dL 11/23/18 11/23/18 11/23/18 Range/Units 13:36 20:39 20:56 RBC (4.30-5.90) m/uL Hgb (13.0-17.5) gm/dL Hct (39.0-53.0) % Lymphocytes # (1.0-4.8) k/uL Chloride (98-107) mmol/L Glucose (74-99) mg/dL POC Glucose (mg/dL) 109 H 67 L 69 L (75-99) mg/dL Calcium (8.4-10.2) mg/dL Magnesium (1.6-2.3) mg/dL 11/24/18 11/24/18 11/24/18 Range/Units 04:10 04:10 06:53 RBC 3.14 L (4.30-5.90) m/uL Hgb 8.8 L (13.0-17.5) gm/dL Hct 26.5 L (39.0-53.0) % Lymphocytes # 0.9 L (1.0-4.8) k/uL Chloride 109 H (98-107) mmol/L Glucose (74-99) mg/dL POC Glucose (mg/dL) 51 L (75-99) mg/dL Calcium 7.4 L (8.4-10.2) mg/dL Magnesium 1.5 L (1.6-2.3) mg/dL 11/24/18 11/24/18 Range/Units 07:12 08:01 RBC (4.30-5.90) m/uL Hgb (13.0-17.5) gm/dL Hct (39.0-53.0) % Lymphocytes # (1.0-4.8) k/uL Chloride (98-107) mmol/L Glucose (74-99) mg/dL POC Glucose (mg/dL) 49 L 155 H (75-99) mg/dL Calcium (8.4-10.2) mg/dL Magnesium (1.6-2.3) mg/dL Microbiology - Last 24 Hours (Table) 11/21/18 10:31 Anaerobic Culture - Preliminary Leg - Right 11/21/18 10:31 Anaerobic Culture - Preliminary Leg - Right 11/21/18 10:31 Gram Stain - Final Leg - Right Wound Culture - Final Presumptive MRSA 11/21/18 10:31 Gram Stain - Final Leg - Right Wound Culture - Final Methicillin resist S. aureus 11/18/18 16:30 Blood Culture - Preliminary Blood No Growth after 120 hours 11/22/18 12:03 Blood Culture - Preliminary Blood No Growth after 24 hours Assessment and Plan Assessment: Impression: 1 acute GI bleeding, most likely upper GI related could be erosive gastritis or could be gastric ulcer disease. EGD report was noted, patient was noted to have pyloric ulcer, nonbleeding, underwent pyloric biopsies and duodenal biopsies. Hemoglobin is presently stable. Obviously no active bleeding. 2 right leg abscess secondary to retained foreign body status post exploration, incision and drainage and removal of foreign body cultures are positive for MRSA, presently on vancomycin . 3 history of peripheral vessel occlusive disease and previous bilateral femoral popliteal bypass surgery. 4 acute blood loss anemia secondary to GI bleeding 5 previous history of DVT in right lower extremity 6 severe COPD, FEV1 is in the range of 39% 7 tobacco dependence syndrome 8 previous transmetatarsal amputation of the left foot. 9 previous history of osteomyelitis 10 chronic hypoxic respiratory failure on home O2, related to underlying COPD. Recommendation: Continue to hold nonsteroidal anti-inflammatory drugs, continue Protonix, continue antibiotics as per infectious disease on the case, presently on vancomycin, daily dressing changes of the right thigh abscess, continue bronchodilators for underlying COPD continue oxygen, EGD report was noted, patient could be transferred out of the ICU to a regular medical floor today. We will continue to follow Time with Patient: Less than 30
[2018-11-24] MEDS ORDERED: HYDROGEN PEROXIDE BOTTLE TOPICAL STA (12:22)
[2018-11-24 17:01] LABS: Glucose,Whole Blood 44 mg/dL (75-99)
[2018-11-24 17:21] LABS: Glucose,Whole Blood 75 mg/dL (75-99)
[2018-11-24] MEDS ORDERED: diphenhydrAMINE 25 MG CAP PO PRN (18:55)
[2018-11-24 20:12] LABS: Glucose,Whole Blood 65 mg/dL (75-99)
[2018-11-24] MEDS: ATORVASTATIN 20 MG TAB PO SCH (20:13)
[2018-11-24] MEDS ORDERED: DEXTROSE 10 % IN WATER 250 ML IV STA (20:21)
[2018-11-24 20:30] LABS: Glucose,Whole Blood 60 mg/dL (75-99)
[2018-11-24 20:53] LABS: Glucose,Whole Blood 154 mg/dL (75-99)
[2018-11-24] MEDS: VANCOMYCIN 1,250 MG in SODIUM CHLORIDE 0.9% 250 ML IVPB SCH (21:10)
--- NOTE | 2018-11-24 22:24 | P.PN ---
Subjective Progress Note Date: 11/24/18 63-year-old male has multiple medical troubles including severe peripheral vascular disease and a history of gout. The patient has been following with the vascular surgeon as well as the wound healing Center regarding a nonhealing ulceration to his left foot. Due to gangrenous changes he did have amputation to the left great toe. An open ulceration continued and there was evidence of exposure of the first metatarsal. Local wound care was being utilized in the wound VAC was being attempted. The patient presented to the wound center where he has been receiving ongoing care, in August the patient however is evidence of extensive gangrenous change of the foot was sent to emergency center at admission through his primary care physician.At that time he was seen by vascular surgery and transmetatarsal amputation was performed with a potential conversion to a [id number] amputation if he did not respond well. He fortunately has been doing relatively well with the negative pressure therapy system being applied to the transmetatarsal amputation site. He did require 1 bony revision because of exposure to metatarsal head. They have been showing some improvement. Gen. the patient was starting to have some improvement but he then developed some significant swelling to his right leg distally related to the prior incision from his vascular bypass. Apparently he was seen in the o utpatient setting and aspiration was performed MRSA was isolated. He doesn't. He was placed on some oral antibiotic therapy but despite this the leg worsened became more tight warm erythematous and painful and he noticed that there was also evidence of some swelling to the more proximal aspect of his thigh at the more cephalad aspect of his bypass. Culture was noticed to have evidence of MRSA and vancomycin has been initiated he is quite uncomfortable. We discussed that his vascular surgeon will need to evaluate. 11/20/2018 the patient continues to feel poorly. He has now been evaluated by vascular surgery and there are plans for exploration of his graft given the marked abnormalities of the been seen. 11/23/2018 the patient is status post surgery where there is evidence of the significant infection to the distal aspect of the right thigh graft, foreign body was removed and cultures are showing evidence of staphylococcal infection as expected. Other than some pain at the site he is improving. 11/24/2018 patient feeling slightly better, however is trying to climb out of bed to get to the bathroom and yet he has not is was to be weightbearing on the right leg with recent surgical intervention. Unclear if his confusion or if he is just being stubborn. Objective - Vital Signs Vital signs: Vital Signs Temp 97.7 F 11/24/18 20:24 Pulse 76 11/24/18 20:24 Resp 12 11/24/18 20:24 BP 130/72 11/24/18 20:24 Pulse Ox 99 11/24/18 15:00 Intake & Output 11/24/18 11/24/18 11/25/18 06:59 18:59 06:59 Intake Total 1650 1100 900 Output Total 600 Balance 1650 500 900 Weight 82.8 kg Intake: IV 1650 1100 900 0.9% NaCl with KCl 20 Meq 1200 1100 400 /l 1,000 ml @ 100 mls/hr IV .Q10H [facility] Rx#: [id number] Dextrose 10 % in Water 250 250 ml @ 999 mls/hr IV ONCE [facility] Rx#:[id number] Piperacillin-Tazobactam 3 200 .375 gm In Sodium Chloride 0.9% 100 ml @ 25 mls/hr IVPB Q8H [facility] Rx#: [id number] Vancomycin 1,250 mg In 250 250 Sodium Chloride 0.9% 250 ml @ 125 mls/hr IVPB Q24H [facility] Rx#:[id number] Output: Urine 600 Other: Voiding Method Bedside Commode Bedside Commode Urinal Urinal # Voids 1 3 # Bowel Movements 1 1 - Exam 63-year-old male quite uncomfortable HEENT: Anicteric conjunctiva are pink and moist nasal mucosa grossly intact without significant lesions, there is no thrush. Neck: The neck is supple without significant lymphadenopathy or thyromegaly. Lungs: Good bilateral air entry without significant crackles or wheezing. There is no significant bronchial sounds. There is no egophony or dullness. Heart: Regular rate and rhythm with an audible S1-S2, no S3 no S4. There is no significant murmur click or rub, PMI was nondisplaced. Abdomen: Positive bowel sounds soft and nontender without palpable masses or organomegaly. There was no guarding or rebound. Extremities: The upper extremities have no evidence of any distinct lesions. Left lower extremity has evidence of the transmetatarsal amputation site. The site has evidence of good granulation without significant erythema swelling or worsening tenderness. The right lower extremity however has the acute change but is now status post surgical debridement by vascular surgery no lymphadenopathy being seen into the right leg or groin. No other significant abnormal lymph nodes are seen. Neuro: Patient very sleepy today There are no acute new gross focal sensory motor deficits. - Labs CBC & Chem 7: 11/24/18 04:10 11/24/18 04:10 Labs: Abnormal Lab Results - Last 24 Hours (Table) 11/24/18 11/24/18 11/24/18 Range/Units 04:10 04:10 06:53 RBC 3.14 L (4.30-5.90) m/uL Hgb 8.8 L (13.0-17.5) gm/dL Hct 26.5 L (39.0-53.0) % Lymphocytes # 0.9 L (1.0-4.8) k/uL Chloride 109 H (98-107) mmol/L POC Glucose (mg/dL) 51 L (75-99) mg/dL Calcium 7.4 L (8.4-10.2) mg/dL Magnesium 1.5 L (1.6-2.3) mg/dL 11/24/18 11/24/18 11/24/18 Range/Units 07:12 08:01 16:49 RBC (4.30-5.90) m/uL Hgb (13.0-17.5) gm/dL Hct (39.0-53.0) % Lymphocytes # (1.0-4.8) k/uL Chloride (98-107) mmol/L POC Glucose (mg/dL) 49 L 155 H 44 L (75-99) mg/dL Calcium (8.4-10.2) mg/dL Magnesium (1.6-2.3) mg/dL 11/24/18 11/24/18 11/24/18 Range/Units 20:00 20:19 20:42 RBC (4.30-5.90) m/uL Hgb (13.0-17.5) gm/dL Hct (39.0-53.0) % Lymphocytes # (1.0-4.8) k/uL Chloride (98-107) mmol/L POC Glucose (mg/dL) 65 L 60 L 154 H (75-99) mg/dL Calcium (8.4-10.2) mg/dL Magnesium (1.6-2.3) mg/dL Microbiology - Last 24 Hours (Table) 11/18/18 16:30 Blood Culture - Final Blood No Growth after 144 hours 11/22/18 12:03 Blood Culture - Preliminary Blood No Growth after 48 hours 11/21/18 10:31 Anaerobic Culture - Preliminary Leg - Right 11/21/18 10:31 Anaerobic Culture - Preliminary Leg - Right 11/21/18 10:31 Gram Stain - Final Leg - Right Wound Culture - Final Presumptive MRSA 11/21/18 10:31 Gram Stain - Final Leg - Right Wound Culture - Final Methicillin resist S. aureus Laboratory Results WBC 6.7 k/uL (3.8-10.6) 11/24/18 04:10 RBC 3.14 m/uL (4.30-5.90) L 11/24/18 04:10 Hgb 8.8 gm/dL (13.0-17.5) L 11/24/18 04:10 Hct 26.5 % (39.0-53.0) L 11/24/18 04:10 MCV 84.5 fL (80.0-100.0) 11/24/18 04:10 MCH 28.2 pg (25.0-35.0) 11/24/18 04:10 MCHC 33.3 g/dL (31.0-37.0) 11/24/18 04:10 RDW 15.5 % (11.5-15.5) 11/24/18 04:10 Plt Count 385 k/uL (150-450) 11/24/18 04:10 Neutrophils % 72 % 11/24/18 04:10 Lymphocytes % 14 % 11/24/18 04:10 Monocytes % 5 % 11/24/18 04:10 Eosinophils % 8 % 11/24/18 04:10 Basophils % 0 % 11/24/18 04:10 Neutrophils # 4.8 k/uL (1.3-7.7) 11/24/18 04:10 Lymphocytes # 0.9 k/uL (1.0-4.8) L 11/24/18 04:10 Monocytes # 0.3 k/uL (0-1.0) 11/24/18 04:10 Eosinophils # 0.5 k/uL (0-0.7) 11/24/18 04:10 Basophils # 0.0 k/uL (0-0.2) 11/24/18 04:10 Hypochromasia Slight 11/23/18 04:49 PT 47.5 sec (9.0-12.0) H 11/22/18 18:59 INR 4.9 (<1.2) H 11/22/18 18:59 APTT 82.1 sec (22.0-30.0) H 11/22/18 18:59 Sodium 139 mmol/L (137-145) 11/24/18 04:10 Potassium 4.5 mmol/L (3.5-5.1) 11/24/18 04:10 Chloride 109 mmol/L (98-107) H 11/24/18 04:10 Carbon Dioxide 25 mmol/L (22-30) 11/24/18 04:10 Anion Gap 5 mmol/L 11/24/18 04:10 BUN 11 mg/dL (9-20) 11/24/18 04:10 Creatinine 0.99 mg/dL (0.66-1.25) 11/24/18 04:10 Est GFR (CKD-EPI)AfAm >90 (>60 ml/min/1.73 sqM) 11/24/18 04:10 Est GFR (CKD-EPI)NonAf 82 (>60 ml/min/1.73 sqM) 11/24/18 04:10 Glucose 75 mg/dL (74-99) 11/24/18 04:10 POC Glucose (mg/dL) 154 mg/dL (75-99) H 11/24/18 20:42 POC Glu Superintendent Custodian Jan[employer] ADDY Hansen Lexie 11/24/18 20:42 Insulin Level 6.2 mIU/mL (3.0-25.0) 11/24/18 04:10 Calcium 7.4 mg/dL (8.4-10.2) L 11/24/18 04:10 Magnesium 1.5 mg/dL (1.6-2.3) L 11/24/18 04:10 Total Bilirubin 0.1 mg/dL (0.2-1.3) L 11/20/18 08:39 AST 18 U/L (17-59) 11/20/18 08:39 ALT 16 U/L (21-72) L 11/20/18 08:39 Alkaline Phosphatase 113 U/L (38-126) 11/20/18 08:39 Total Protein 5.1 g/dL (6.3-8.2) L 11/20/18 08:39 Albumin 2.2 g/dL (3.5-5.0) L 11/20/18 08:39 TSH 3.090 mIU/L (0.465-4.680) 11/22/18 12:03 Stool Occult Blood Positive (Negative) 11/22/18 09:00 Vancomycin Trough 26.7 ug/mL 11/22/18 11:10 C. difficile (EIA) Intrp Negative (Negative) 11/19/18 19:00 Blood Type O Positive 11/22/18 11:10 Blood Type Confirm O Positive 11/22/18 06:34 Blood Type Recheck No Previous Record 11/22/18 11:10 Bld Type Recheck Status CABO Indicated 11/22/18 11:10 Antibody Screen NEGATIVE 11/22/18 11:10 Crossmatch See Detail 11/22/18 11:10 Spec Expiration Date 11/25/2018 - 230911/22/18 11:10 Microbiology 11/18/18 16:30 Blood Blood Culture - Final No Growth after 144 hours 11/22/18 12:03 Blood Blood Culture - Preliminary No Growth after 48 hours 11/21/18 10:31 Leg - Right Anaerobic Culture - Preliminary 11/21/18 10:31 Leg - Right Anaerobic Culture - Preliminary 11/21/18 10:31 Leg - Right Gram Stain - Final 11/21/18 10:31 Leg - Right Wound Culture - Final Presumptive MRSA 11/21/18 10:31 Leg - Right Gram Stain - Final 11/21/18 10:31 Leg - Right Wound Culture - Final Methicillin resist S. aureus Assessment and Plan (1) Leukocytosis Current Visit: Yes Status: Acute Code(s): D72.829 - ELEVATED WHITE BLOOD CELL COUNT, UNSPECIFIED SNOMED Code(s): 525692682 (2) MRSA (methicillin resistant staph aureus) culture positive Narrative/Plan: 63-year-old male who has history of severe peripheral vascular disease having increasing difficulties as of late. He developed a gangrenous changes to the left foot in a transmetatarsal amputation was performed. There is evidence of some bony exposure of the metatarsal head and it appears that her further resection of the f fourth metatarsal head occurred in with the negative pressure therapy system has been showing some steady improvement. The patient were to present to the ER couple days ago with increasing pain and tenderness on the dis ad aspect of the right leg in conjunction with an area of prior vascular bypass. Aspiration was performed and no evidence of MRSA as per nicely. Vancomycin therapy has been initiated. Vascular surgery consultation is requested. There is concerns to infection of his graft. Is somewhat unusual t hat there is difficulty at 2 different sites along the graft that are not contiguous. However given his history there is great concern that there could be infection of his graft. Blood cultures are in process. Pain control is being addressed. Patient should limit his ambulation. He is without s ignificant high-grade fevers, he did have leukocytosis at admission that is already improving with hydration and antibiotic therapy. Local care to the transmetatarsal amputation site is requested. 11/20/2018 the patient has been evaluated by his vascular surgeon and there is no marked abnormalities as noted. Plans for surgical exploration of that graft are being made. Antibiotic therapy continues. The patient has some diarrhea with C. diff is comeback is negative. Imodium can be utilized if he is having ongoing diarrhea. Pain control seems to be somewhat adequate. Continue local wound care to the left transmetatarsal amputation site 11/23/2018 the patient started to have some improvement. The surgical site on the right thigh just has some scant serosanguineous drainage. The transme tatarsal amputation site left foot is stable. We'll plan on continuing the antibiotic therapy with vancomycin for treatment of the abscess to the right thigh as well as to the left transmetatarsal amputation site. Appetites improving, no diarrhea C. diff that was checked was negative. 11/24/2018 patient is stable, MRSA infection to the right thigh seems to be improving. Drainage is improving. Lesions are seen. Is being followed by his vascular surgeon. No further surgical interventions are noted at this point in time. We'll need to continue intravenous antibiotic therapy was transferred to the rehab facility. IV access requested. Current Visit: Yes Status: Acute Code(s): Z22.322 - CARRIER OR SUSPECTED CAR RIER OF METHICILLIN RESIS STAPH SNOMED Code(s): 747923396 (3) Partial nontraumatic amputation of left foot Current Visit: No Status: Acute Code(s): Z89.432 - ACQUIRED ABSENCE OF LEFT FOOT SNOMED Code(s): 989323279
[2018-11-25 02:08] LABS: Glucose,Whole Blood 77 mg/dL (75-99)
[2018-11-25 05:10] LABS: Basophils % (A) 0 %; Eosinophils # (A) 0.6 k/uL (0-0.7); Eosinophils % (A) 8 %; HCT 26.6 % (39.0-53.0); HGB 8.4 gm/dL (13.0-17.5); Lymphocytes # (A) 1.3 k/uL (1.0-4.8); Lymphocytes % (A) 17 %; MCH 26.8 pg (25.0-35.0); MCHC 31.6 g/dL (31.0-37.0); MCV 84.8 fL (80.0-100.0); Mean Platelet Volume 6.6; Monocytes # (A) 0.5 k/uL (0-1.0); Monocytes % (A) 6 %; Neutrophils # (A) 5.4 k/uL (1.3-7.7); Neutrophils % (A) 68 %; Platelet Count 393 k/uL (150-450); RBC 3.14 m/uL (4.30-5.90); RDW 15.8 % (11.5-15.5)
[2018-11-25 05:21] LABS: Calcium 7.6 mg/dL (8.4-10.2); Magnesium 1.3 mg/dL (1.6-2.3); Potassium 5.1 mmol/L (3.5-5.1)
[2018-11-25] MEDS: HYDROcodone/APAP 10-325MG 1 EACH TAB PO PRN ×4 (05:24→21:48)
[2018-11-25] MEDS: MAGNESIUM SULFATE-D5W PMX 1 GM in DEXTROSE/WATER 1 100ML.BAG IVPB SCH ×3 (05:36→11:21)
[2018-11-25] MEDS: 0.9% NACL WITH KCL 20 MEQ/L 1,000 ML IV SCH ×2 (05:37→11:25)
[2018-11-25] MEDS ORDERED: DEXTROSE 10 % IN WATER 250 ML IV STA (06:50)
[2018-11-25 07:01] LABS: Glucose,Whole Blood 56 mg/dL (75-99)
[2018-11-25] MEDS: PANTOPRAZOLE 40 MG TABLET PO SCH ×2 (07:16→17:14)
[2018-11-25] MEDS: MORPHINE SULFATE 4 MG/ML SYRINGE IVP PRN ×2 (09:46→09:52)
[2018-11-25 10:16] LABS: Glucose,Whole Blood 57 mg/dL (75-99)
[2018-11-25] MEDS: HEPARIN SODIUM,PORCINE 5,000 UNIT/ML 1 ML VIAL SQ SCH ×2 (11:19→21:46)
[2018-11-25] MEDS: METOPROLOL TARTRATE 25 MG TAB PO SCH (11:20)
[2018-11-25] MEDS: MAGNESIUM OXIDE 400 MG TAB PO SCH (11:21)
[2018-11-25] MEDS: COLCHICIN-PROBENECID 0.5-500MG 1 EACH TAB PO SCH (11:21)
[2018-11-25] MEDS: DIAZEPAM 5 MG TAB PO SCH ×2 (11:21→21:46)
[2018-11-25] MEDS: NICOTINE 21MG/24HR PATCH TRANSDERM SCH (11:21)
[2018-11-25] MEDS: SERTRALINE 50 MG TAB PO SCH (11:22)
[2018-11-25] MEDS: ZINC SULFATE 220 MG CAP PO SCH (11:22)
[2018-11-25] MEDS: D5-0.45% NACL WITH KCL 20MEQ/L 1,000 ML IV SCH ×2 (11:45→21:57)
--- NOTE | 2018-11-25 11:57 | P.PN ---
Subjective Progress Note Date: 11/25/18 Principal diagnosis: Acute GI bleeding and right thigh abscess secondary to retained foreign body. 63-year-old gentleman who has been currently treated at the Hospital for a right lower leg/medial thigh mass which was previously needle aspirated demonstrating abscess. Since that aspiration the mass has increased in size. He was recently seen in the office and underwent ultrasound which demonstrated no evidence of pseudoaneurysm. Patient states he had had that swelling for several years without any pain and therefore we instructed him if it became more painful or increase in size that he would need a CT angiogram. He then went to the hospital emergency department where he had it drained and cultures came back MRSA. He was seen yesterday and a CT angiogram was obtained demonstrating good flow through the bypass without evidence of pseudoaneurysm but what appeared to be radiopaque coils around the bypass. We did obtain vein mapping just in case a revision bypass was needed and then he was scheduled for exploration and drainage of abscess. The patient was taken to the operating room on 11/21/2018. The patient underwent a right medial thigh exploration with removal of foreign body and drainage of the abscess. Estimated blood loss was 20 mL. This morning, the patient was noted to have some melanotic stool. GI bleeding was suspected. Note that hemoglobin was around 10 at a time of admission and dropped gradually down to 7. and on to 6.9. The patient got transferred to the intensive care unit. Coagulation profile has not been done yet. He admits to take nonsteroidal anti-inflammatory medication for chronic pain. He also admits to have gastric ulcers although he has not had any previous EGD. His colonoscopy was done approximately a year ago. He is currently hemodynamically stable. He is receiving a unit of packed RBC. Follow-up blood work is still pending for now. He was placed on IV Protonix. His occult stool is positive. He continues to have issues with peripheral vascular disease. 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 He has been seen at the wound clinic. Chest x-ray shows no acute abnormalities. Noted the patient also has history of gout and he takes colchicine. Patient was reevaluated today on 11/23/2018, remains in the ICU, awaiting to have EGD today. Patient seems to be comfortable, he is hemodynamically stable, has been taking nonsteroidal anti-inflammatory medications for chronic pain, and had previous history of gastric ulcers in the past. Received a total of 2 units of packed RBCs since admission, hemoglobin today is 9.1. Remains on IV Protonix. His Hemoccult stool was positive. Seen by gastroenterology, and I believe he is scheduled to undergo EGD today. His last colonoscopy was about a year ago. Continues to have close follow-up by vascular surgery regarding his right thigh abscess related to foreign body retention from previous surgery. Reevaluated today on 11/24/2018, patient is doing quite well, relatively asymptomatic, he will have dressing changes on his right thigh wound by Dr. Patel later today. Patient is hemodynamically stable, EGD yesterday showed nonbleeding superficial ulcer of the pylorus. Hence the patient was kept on Protonix 40 mg twice a day, and no need for any further endoscopic evaluation. Biopsies of the superficial ulcer are pending patient also had some duodenal biopsies. Advised by GI to avoid nonsteroidal anti-inflammatory drugs. Labs including CBC were reviewed today hemoglobin is 8.8 today renal profile is normal. Electrolytes are normal. Reevaluated today on 11/25/2018, patient is refusing treatment at present, seems to be quite unhappy and he would like to be discharged home. Psychiatric consultation was appreciated, patient feels cold, and a warming blanket was given, he is willing to allow Dr. Patel to have his dressing changed on his right thigh abscess. Patient remains on antibiotics as per infectious disease, denies any pulmonary symptoms no cough no wheezing no shortness of breath. WBC count today is 8 hemoglobin is 8.4 electrode. Normal renal profile is normal. Objective - Vital Signs Vital signs: Vital Signs Temp 97.8 F 11/25/18 06:58 Pulse 82 11/25/18 06:58 Resp 12 11/25/18 06:58 BP 122/71 11/25/18 06:58 Pulse Ox 99 11/24/18 15:00 Intake & Output 11/24/18 11/25/18 11/25/18 18:59 06:59 18:59 Intake Total 1100 1700 Output Total 600 Balance 500 1700 Weight 82.8 kg Intake: IV 1100 1700 0.9% NaCl with KCl 20 Meq 1100 1200 /l 1,000 ml @ 100 mls/hr IV .Q10H [facility] Rx#: [id number] Dextrose 10 % in Water 250 250 ml @ 999 mls/hr IV ONCE STA Rx#:[id number] Vancomycin 1,250 mg In 250 Sodium Chloride 0.9% 250 ml @ 125 mls/hr IVPB Q24H [facility] Rx#:[id number] Output: Urine 600 Other: Voiding Method Bedside Commode Bedside Commode Urinal Urinal # Voids 3 1 # Bowel Movements 1 1 - Exam Physical Exam: Revealed a 63-year-old white male, shivering, not in respiratory distress. Head: Atraumatic, normocephalic. HEENT:[Neck is supple.] [No neck masses.] [No thyromegaly.] [No JVD.] PERRLA, EOMI, no icterus. Chest: [Clear throughout, no crackles, no rhonchi, no wheezes.] Symmetrical chest expansion, no chest wall tenderness. Cardiac Exam: [Normal S1 and S2, no S3 gallop, no murmur.] Abdomen: [Soft, nontender, no megaly, no rebound, no guarding, normal bowel sounds.] Extremities: Left lower extremity has evidence of the transmetatarsal amputation site The site has evidence of good granulation without significant erythema swelling or worsening tenderness. The right lower extremity , Currently the site has been incised and drained and it is packed, serous drainage is noted and soaking the dressing.. Lower extremity pulses are diminished at the present. Neurological Exam: [No focal neurologic deficit.] Alert and oriented 3. Psychiatric: Depressed mood, blunt affect, otherwise no gross focal deficit normal mental status. - Labs CBC & Chem 7: 11/25/18 04:41 11/25/18 04:42 Labs: Abnormal Lab Results - Last 24 Hours (Table) 11/24/18 11/24/18 11/24/18 Range/Units 16:49 20:00 20:19 RBC (4.30-5.90) m/uL Hgb (13.0-17.5) gm/dL Hct (39.0-53.0) % RDW (11.5-15.5) % Chloride (98-107) mmol/L POC Glucose (mg/dL) 44 L 65 L 60 L (75-99) mg/dL Calcium (8.4-10.2) mg/dL Magnesium (1.6-2.3) mg/dL 11/24/18 11/25/18 11/25/18 Range/Units 20:42 04:41 04:42 RBC 3.14 L (4.30-5.90) m/uL Hgb 8.4 L (13.0-17.5) gm/dL Hct 26.6 L (39.0-53.0) % RDW 15.8 H (11.5-15.5) % Chloride 109 H (98-107) mmol/L POC Glucose (mg/dL) 154 H (75-99) mg/dL Calcium 7.6 L (8.4-10.2) mg/dL Magnesium 1.3 L (1.6-2.3) mg/dL 11/25/18 11/25/18 Range/Units 06:49 10:04 RBC (4.30-5.90) m/uL Hgb (13.0-17.5) gm/dL Hct (39.0-53.0) % RDW (11.5-15.5) % Chloride (98-107) mmol/L POC Glucose (mg/dL) 56 L 57 L (75-99) mg/dL Calcium (8.4-10.2) mg/dL Magnesium (1.6-2.3) mg/dL Microbiology - Last 24 Hours (Table) 11/18/18 16:30 Blood Culture - Final Blood No Growth after 144 hours 11/22/18 12:03 Blood Culture - Preliminary Blood No Growth after 48 hours Assessment and Plan Assessment: Impression: 1 acute GI bleeding, most likely upper GI related could be erosive gastritis or could be gastric ulcer disease. EGD report was noted, patient was noted to have pyloric ulcer, nonbleeding, underwent pyloric biopsies and duodenal biopsies. Hemoglobin remains stable. 2 right leg abscess secondary to retained foreign body status post exploration, incision and drainage and removal of foreign body cultures are positive for MRSA, presently on vancomycin . 3 history of peripheral vessel occlusive disease and previous bilateral femoral popliteal bypass surgery. 4 acute blood loss anemia secondary to GI bleeding 5 previous history of DVT in right lower extremity 6 severe COPD, FEV1 is in the range of 39% 7 tobacco dependence syndrome 8 previous transmetatarsal amputation of the left foot. 9 previous history of osteomyelitis 10 chronic hypoxic respiratory failure on home O2, related to underlying COPD. Recommendation: Continue to hold nonsteroidal anti-inflammatory drugs, continue Protonix, continue antibiotics as per infectious disease on the case, presently on vancomycin, daily dressing changes of the right thigh abscess, continue bronchodilators for underlying COPD continue oxygen, psychiatry to evaluate the patient since he is refusing treatment, we'll arrange for the patient be transferred out of the ICU, and if transferred needs a sitter. Time with Patient: Less than 30
[2018-11-25] MEDS ORDERED: .MORPHINE SULFATE (INJ) 10 MG/ML SYRINGE IVP STA (13:28)
[2018-11-25] MEDS: MORPHINE SULFATE 4 MG/ML SYRINGE IV PRN ×2 (13:35→14:04)
[2018-11-25] MEDS ORDERED: HYDROGEN PEROXIDE BOTTLE TOPICAL STA (14:03)
--- NOTE | 2018-11-25 16:13 | P.CN ---
Psychiatric Consult - . Consult date: 11/25/18 Consult:: 11/25/18 15:15 IDENTIFYING DATA: This patient is a 63-year-old male, who has a history of multiple comorbidities including DVT curd COPD DIANA and vascular disease. HISTORY OF PRESENT ILLNESS: The patient was admitted to the hospital on 11/18/2018 for a lump on his right leg and weakness. It was found that patient had an infected foreign body from a previous surgery and was MRSA positive. Patient developed GI bleed and needed to be transported to the ICU for further management and treatment. Psychiatry was consulted for suicidal ideations due to decrease in his health and of his spouse recently. Patient was seen at the bedside after receiving wound care and going to the bathroom and was agreeable to speak to commercial insurance underwriter. Patient appeared to have a depressed affect and was soft and his tone of voice and gave very concrete answers. Patient states that he's feeling "all messed up" from his declining health and claims that he is not able to take care of himself. Patient states that tomorrow will be his 's one-year anniversary of her and states that he was supposed to go and visit her however he cannot as he is in the hospital. Patient spoke about his having muscular dystrophy and having a decline in her health before she and he spoke about the challenges of helping her and states that he recently bought a wheelchair and other device to help her but she b efore she could use it. Patient also describes feeling that he was less "loved" by his family including his grandkids and they would prefer to see her instead when they visited. Patient also spoke about his decline in his health and how he had to lose his toes to surgery due to poor circulation. Patient also spoke about his 's brother getting attorneys to try to add more of the inheritance from his which she is dealing with. Patient also spoke about going to rehab after he is in the hospital. When asked about patient's mood he claims that he is depressed however at this time he states that he is refusing treatment and when asked about suicidality patient states that "I wouldn't tell you" and does not answer the question whether he has access to guns or weapons at home. Patient also claims that he is "sick of life" and can take his life at any time. When asked about his medical condition patient claims "I don't care if I leave the hospital and I don't want treatment" and is not able to verbalize a true understanding of the risks and benefits of treatment along with the long-term repercussions. At this time patient denies any homical ideations, intent or plan. Patient denies any auditory, visual hallucinations and denies any paranoia or delusions. PAST PSYCHIATRIC HISTORY: Patient does not have history of being admitted to a psychiatric hospital. Patient was previously diagnosed with depression and is currently on Zoloft 50 mg daily with Valium 10 mg twice a day. Patient denies any previous suicide attempts. PAST MEDICAL HISTORY: DVT, GERD, COPD, OA, vascular disease. ALLERGIES: Hydromorphone. CHEMICAL DEPENDENCY HISTORY: smoking marijuana on a daily basis. Patient is a daily smoker. Patient claims that he quit alcohol 6-8 months ago. FAMILY PSYCHIATRIC/SUBSTANCE USE HISTORY: denies SOCIAL HISTORY: He states that he was born and raised in [facility] and lives in a house alone is has 4 children and 5 grandkids. He is retired from the serving in the [employer] from [id number]. Patient also claims that he worked at [employer] for 19 years and is now retired. MENTAL STATUS EXAM: General Appearance: Patient appears to be older than stated age is alert, directable and cooperative. Patient is thin and appears to be frail lying in hospital bed with fair hygiene and grooming. Behavior: Patient is calmly lying in bed without any agitated behavior. Speech: Patient's speech is fluent and nonpressured. Soft tone Mood/Affect: Patient reports their mood is pressed, affect is congruent and constricted Suicidality/Homicidality: Patient denies having any homicidal ideation intent or plan. Patient admits to suicidal ideations however refuses to answer questions regarding plan or intent and also at does not answer questions regarding access to weapons. Perceptions: Patient denies any auditory or visual hallucinations. Though content/process: There is no evidence of any delusional thought content and thought process is linear and goal-directed. Depressive content and suicidal ideations. Memory and concentration: AOX3, grossly intact for the purposes of this session. Can spell "WORLD" backwards Judgment and insight: Poor IMPRESSIONS: Depressive disorder unspecified Alcohol use disorder Cannabis use disorder PLAN: -Patient DOES NOT have decision making capacity at this time and is unable to reason through and communicate/appreciate the risks, benefits and alternatives to treatment. Patient is endorsing suicidal ideations and is guarded about his plan to end his life. -Would recommend the following medication changes/additions: Zoloft was increased to 100 mg daily for mood. Will start Remeron 15 mg daily at bedtime for appetite insomnia and mood. -I called and left a message with the social worker psychiatric covering stating that patient does not have capacity to refuse treatment/sign out AMA at this time and if patient is not engaging in treatment then patient will need an emergency temporary guardian. -Continue 1:1 sitter for safety -Cannot leave AMA at this time. Patient will need a petition and certification if attempting to leave AMA. -Will continue to follow along and please call with any questions. 11/25/18 15:59
--- NOTE | 2018-11-25 17:21 | P.PN ---
Subjective Progress Note Date: 11/25/18 Pt s/e. dressing to right leg changed earlier today. L TMA wound with good granulation tissue. At some point will need revision d/t some bone. No urgency, may be done as outpatient. Will replace wound vac at this time. Objective - Vital Signs Vital signs: Vital Signs Temp 97.6 F 11/25/18 12:00 Pulse 67 11/25/18 12:00 Resp 16 11/25/18 12:00 BP 128/75 11/25/18 12:00 Pulse Ox 95 11/25/18 12:00 Intake & Output 11/24/18 11/25/18 11/25/18 18:59 06:59 18:59 Intake Total 1100 1700 600 Output Total 600 600 Balance 500 1700 0 Weight 82.8 kg Intake: IV 1100 1700 600 0.9% NaCl with KCl 20 Meq 1100 1200 /l 1,000 ml @ 100 mls/hr IV .Q10H [facility] Rx#: [id number] D5-0.45% NaCl with KCl 600 20Meq/l 1,000 ml @ 100 mls/hr IV .Q10H [facility] Rx#: [id number] Dextrose 10 % in Water 250 250 ml @ 999 mls/hr IV ONCE [facility] Rx#:[id number] Vancomycin 1,250 mg In 250 Sodium Chloride 0.9% 250 ml @ 125 mls/hr IVPB Q24H [facility] Rx#:[id number] Output: Urine 600 600 Other: Voiding Method Bedside Commode Bedside Commode Bedside Commode Urinal Urinal Urinal # Voids 3 1 1 # Bowel Movements 1 1 1 - Labs CBC & Chem 7: 11/25/18 04:41 11/25/18 04:42 Labs: Abnormal Lab Results - Last 24 Hours (Table) 11/24/18 11/24/18 11/24/18 Range/Units 20:00 20:19 20:42 RBC (4.30-5.90) m/uL Hgb (13.0-17.5) gm/dL Hct (39.0-53.0) % RDW (11.5-15.5) % Chloride (98-107) mmol/L POC Glucose (mg/dL) 65 L 60 L 154 H (75-99) mg/dL Calcium (8.4-10.2) mg/dL Magnesium (1.6-2.3) mg/dL 11/25/18 11/25/18 11/25/18 Range/Units 04:41 04:42 06:49 RBC 3.14 L (4.30-5.90) m/uL Hgb 8.4 L (13.0-17.5) gm/dL Hct 26.6 L (39.0-53.0) % RDW 15.8 H (11.5-15.5) % Chloride 109 H (98-107) mmol/L POC Glucose (mg/dL) 56 L (75-99) mg/dL Calcium 7.6 L (8.4-10.2) mg/dL Magnesium 1.3 L (1.6-2.3) mg/dL 11/25/18 Range/Units 10:04 RBC (4.30-5.90) m/uL Hgb (13.0-17.5) gm/dL Hct (39.0-53.0) % RDW (11.5-15.5) % Chloride (98-107) mmol/L POC Glucose (mg/dL) 57 L (75-99) mg/dL Calcium (8.4-10.2) mg/dL Magnesium (1.6-2.3) mg/dL Microbiology - Last 24 Hours (Table) 11/22/18 12:03 Blood Culture - Preliminary Blood No Growth after 72 hours 11/18/18 16:30 Blood Culture - Final Blood No Growth after 144 hours
[2018-11-25 17:33] LABS: Glucose,Whole Blood 89 mg/dL (75-99)
--- NOTE | 2018-11-25 18:49 | P.PN ---
Subjective Principal diagnosis: Peripheral vascular disease with history of cellulitis and serosanguineouhe right distal thigh. The patient had worsening cellulitis with incision and drainage of abscess. Due to his having previous bypass graft, expiration of the are was essentially done and foreign body removed. The patient continues to be treated with vancomycin. I do appreciate multiple consultants including infectious disease, vascular surgery with intensivists. Today however, he seems more depressed. He is asking me for a "cyanide pill." We will ask appropriate psychiatric assistance today. He is on suicide watch in the ICU. Objective - Vital Signs Vital signs: Vital Signs Temp 97.6 F 11/25/18 12:00 Pulse 67 11/25/18 12:00 Resp 16 11/25/18 12:00 BP 128/75 11/25/18 12:00 Pulse Ox 95 11/25/18 12:00 Intake & Output 11/24/18 11/25/18 11/25/18 18:59 06:59 18:59 Intake Total 1100 1700 600 Output Total 600 600 Balance 500 1700 0 Weight 82.8 kg Intake: IV 1100 1700 600 0.9% NaCl with KCl 20 Meq 1100 1200 /l 1,000 ml @ 100 mls/hr IV .Q10H [facility] Rx#: [id number] D5-0.45% NaCl with KCl 600 20Meq/l 1,000 ml @ 100 mls/hr IV .Q10H [facility] Rx#: [id number] Dextrose 10 % in Water 250 250 ml @ 999 mls/hr IV ONCE [facility] Rx#:[id number] Vancomycin 1,250 mg In 250 Sodium Chloride 0.9% 250 ml @ 125 mls/hr IVPB Q24H [facility] Rx#:[id number] Output: Urine 600 600 Other: Voiding Method Bedside Commode Bedside Commode Bedside Commode Urinal Urinal Urinal # Voids 3 1 1 # Bowel Movements 1 1 1 - Constitutional General appearance: Present: average body habitus - EENT Eyes: Absent: abnormal pupil - Neck Neck: Absent: lymphadenopathy - Respiratory Respiratory: bilateral: CTA - Cardiovascular Rhythm: regular Heart sounds: normal: S1, S2 Abnormal Heart Sounds: Absent: S3 Gallop - Gastrointestinal General gastrointestinal: Present: soft. Absent: tenderness - Psychiatric Psychiatric: Present: A&O x's 3. Absent: appropriate affect - Labs CBC & Chem 7: 11/25/18 04:41 11/25/18 04:42 Labs: Abnormal Lab Results - Last 24 Hours (Table) 11/24/18 11/24/18 11/24/18 Range/Units 20:00 20:19 20:42 RBC (4.30-5.90) m/uL Hgb (13.0-17.5) gm/dL Hct (39.0-53.0) % RDW (11.5-15.5) % Chloride (98-107) mmol/L POC Glucose (mg/dL) 65 L 60 L 154 H (75-99) mg/dL Calcium (8.4-10.2) mg/dL Magnesium (1.6-2.3) mg/dL 11/25/18 11/25/18 11/25/18 Range/Units 04:41 04:42 06:49 RBC 3.14 L (4.30-5.90) m/uL Hgb 8.4 L (13.0-17.5) gm/dL Hct 26.6 L (39.0-53.0) % RDW 15.8 H (11.5-15.5) % Chloride 109 H (98-107) mmol/L POC Glucose (mg/dL) 56 L (75-99) mg/dL Calcium 7.6 L (8.4-10.2) mg/dL Magnesium 1.3 L (1.6-2.3) mg/dL 11/25/18 Range/Units 10:04 RBC (4.30-5.90) m/uL Hgb (13.0-17.5) gm/dL Hct (39.0-53.0) % RDW (11.5-15.5) % Chloride (98-107) mmol/L POC Glucose (mg/dL) 57 L (75-99) mg/dL Calcium (8.4-10.2) mg/dL Magnesium (1.6-2.3) mg/dL Microbiology - Last 24 Hours (Table) 11/22/18 12:03 Blood Culture - Preliminary Blood No Growth after 72 hours 11/18/18 16:30 Blood Culture - Final Blood No Growth after 144 hours Assessment and Plan (1) Leukocytosis Current Visit: Yes Status: Acute Code(s): D72.829 - ELEVATED WHITE BLOOD CELL COUNT, UNSPECIFIED SNOMED Code(s): 244162872 (2) MRSA (methicillin resistant staph aureus) culture positive Current Visit: Yes Status: Acute Code(s): Z22.322 - CARRIER OR SUSPECTED CARRIER OF METHICILLIN RESIS STAPH SNOMED Code(s): 040998178 (3) Soft tissue mass Current Visit: Yes Status: Acute Code(s): M79.89 - OTHER SPECIFIED SOFT TISSUE DISORDERS SNOMED Code(s): 565727390 (4) COPD (chronic obstructive pulmonary disease) Current Visit: No Status: Acute Code(s): J44.9 - CHRONIC OBSTRUCTIVE PULMONARY DISEASE, UNSPECIFIED SNOMED Code(s): 18052312 (5) Partial nontraumatic amputation of left foot Current Visit: No Status: Acute Code(s): Z89.432 - ACQUIRED ABSENCE OF LEFT FOOT SNOMED Code(s): 892437547 (6) Seroma Current Visit: No Status: Acute Code(s): CST9750 - SNOMED Code(s): 731145076 (7) Acute depression Current Visit: Yes Status: Acute Code(s): F32.9 - MAJOR DEPRESSIVE DISORDER, SINGLE EPISODE, UNSPECIFIED SNOMED Code(s): 318158983 Plan: Appreciate multiple consultants input. The care team has been aware of his overall depressive behavior for the last 24 hours. We will continue and appreciate psychiatric input. Check CBC and CMP in a.m. Altered mental status related to encephalopathy from underlying medical illness and element of infection. Time with Patient: Greater than 30
[2018-11-25] MEDS ORDERED: VANCOMYCIN TROUGH DUE 1 EACH MISC MISCELLANE ONE (21:00)
[2018-11-25 21:19] LABS: Glucose,Whole Blood 100 mg/dL (75-99)
[2018-11-25] MEDS: VANCOMYCIN 1,250 MG in SODIUM CHLORIDE 0.9% 250 ML IVPB SCH (21:45)
[2018-11-25] MEDS: MIRTAZAPINE 15 MG TAB PO SCH (21:46)
[2018-11-25] MEDS: ATORVASTATIN 20 MG TAB PO SCH (21:46)
[2018-11-26 05:59] LABS: Calcium 8.1 mg/dL (8.4-10.2); Magnesium 1.7 mg/dL (1.6-2.3); Potassium 4.7 mmol/L (3.5-5.1)
[2018-11-26 06:04] LABS: Basophils % (A) 0 %; Eosinophils # (A) 0.7 k/uL (0-0.7); Eosinophils % (A) 7 %; HCT 25.1 % (39.0-53.0); HGB 8.2 gm/dL (13.0-17.5); Lymphocytes # (A) 1.5 k/uL (1.0-4.8); Lymphocytes % (A) 16 %; MCH 27.2 pg (25.0-35.0); MCHC 32.5 g/dL (31.0-37.0); MCV 83.8 fL (80.0-100.0); Mean Platelet Volume 7.1; Monocytes # (A) 0.6 k/uL (0-1.0); Monocytes % (A) 6 %; Neutrophils # (A) 6.8 k/uL (1.3-7.7); Neutrophils % (A) 70 %; Platelet Count 379 k/uL (150-450); RBC 2.99 m/uL (4.30-5.90); RDW 15.9 % (11.5-15.5); WBC 9.6 k/uL (3.8-10.6)
[2018-11-26] MEDS: PANTOPRAZOLE 40 MG TABLET PO SCH ×2 (06:28→17:35)
[2018-11-26] MEDS: D5-0.45% NACL WITH KCL 20MEQ/L 1,000 ML IV SCH ×2 (08:40→20:54)
[2018-11-26] MEDS: MAGNESIUM OXIDE 400 MG TAB PO SCH (08:41)
[2018-11-26] MEDS: HEPARIN SODIUM,PORCINE 5,000 UNIT/ML 1 ML VIAL SQ SCH ×2 (08:41→20:52)
[2018-11-26] MEDS: NICOTINE 21MG/24HR PATCH TRANSDERM SCH (08:41)
[2018-11-26] MEDS: DIAZEPAM 5 MG TAB PO SCH ×2 (08:41→20:52)
[2018-11-26] MEDS: METOPROLOL TARTRATE 25 MG TAB PO SCH (08:41)
[2018-11-26] MEDS: COLCHICIN-PROBENECID 0.5-500MG 1 EACH TAB PO SCH (08:42)
[2018-11-26] MEDS: ZINC SULFATE 220 MG CAP PO SCH (08:43)
[2018-11-26] MEDS: SERTRALINE 100 MG TAB PO SCH (08:43)
[2018-11-26 09:28] LABS: Glucose,Whole Blood 65 mg/dL (75-99)
[2018-11-26 09:28] LABS: Glucose,Whole Blood 25 mg/dL (75-99)
[2018-11-26 09:28] LABS: Glucose,Whole Blood 55 mg/dL (75-99)
[2018-11-26 09:28] LABS: Glucose,Whole Blood 55 mg/dL (75-99)
[2018-11-26 09:28] LABS: Glucose,Whole Blood 41 mg/dL (75-99)
[2018-11-26 09:28] LABS: Glucose,Whole Blood 61 mg/dL (75-99)
[2018-11-26 09:28] LABS: Glucose,Whole Blood 32 mg/dL (75-99)
[2018-11-26 09:29] LABS: Glucose,Whole Blood 68 mg/dL (75-99)
--- NOTE | 2018-11-26 11:34 | P.PN ---
Subjective Progress Note Date: 11/26/18 Principal diagnosis: Acute GI bleeding and right thigh abscess secondary to retained foreign body. 63-year-old gentleman who has been currently treated at the Hospital for a right lower leg/medial thigh mass which was previously needle aspirated demonstrating abscess. Since that aspiration the mass has increased in size. He was recently seen in the office and underwent ultrasound which demonstrated no evidence of pseudoaneurysm. Patient states he had had that swelling for several years without any pain and therefore we instructed him if it became more painful or increase in size that he would need a CT angiogram. He then went to the hospital emergency department where he had it drained and cultures came back MRSA. He was seen yesterday and a CT angiogram was obtained demonstrating good flow through the bypass without evidence of pseudoaneurysm but what appeared to be radiopaque coils around the bypass. We did obtain vein mapping just in case a revision bypass was needed and then he was scheduled for exploration and drainage of abscess. The patient was taken to the operating room on 11/21/2018. The patient underwent a right medial thigh exploration with removal of foreign body and drainage of the abscess. Estimated blood loss was 20 mL. This morning, the patient was noted to have some melanotic stool. GI bleeding was suspected. Note that hemoglobin was around 10 at a time of admission and dropped gradually down to 7. and on to 6.9. The patient got transferred to the intensive care unit. Coagulation profile has not been done yet. He admits to take nonsteroidal anti-inflammatory medication for chronic pain. He also admits to have gastric ulcers although he has not had any previous EGD. His colonoscopy was done approximately a year ago. He is currently hemodynamically stable. He is receiving a unit of packed RBC. Follow-up blood work is still pending for now. He was placed on IV Protonix. His occult stool is positive. He continues to have issues with peripheral vascular disease. 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 He has been seen at the wound clinic. Chest x-ray shows no acute abnormalities. Noted the patient also has history of gout and he takes colchicine. Patient was reevaluated today on 11/23/2018, remains in the ICU, awaiting to have EGD today. Patient seems to be comfortable, he is hemodynamically stable, has been taking nonsteroidal anti-inflammatory medications for chronic pain, and had previous history of gastric ulcers in the past. Received a total of 2 units of packed RBCs since admission, hemoglobin today is 9.1. Remains on IV Protonix. His Hemoccult stool was positive. Seen by gastroenterology, and I believe he is scheduled to undergo EGD today. His last colonoscopy was about a year ago. Continues to have close follow-up by vascular surgery regarding his right thigh abscess related to foreign body retention from previous surgery. Reevaluated today on 11/24/2018, patient is doing quite well, relatively asymptomatic, he will have dressing changes on his right thigh wound by Dr. Patel later today. Patient is hemodynamically stable, EGD yesterday showed nonbleeding superficial ulcer of the pylorus. Hence the patient was kept on Protonix 40 mg twice a day, and no need for any further endoscopic evaluation. Biopsies of the superficial ulcer are pending patient also had some duodenal biopsies. Advised by GI to avoid nonsteroidal anti-inflammatory drugs. Labs including CBC were reviewed today hemoglobin is 8.8 today renal profile is normal. Electrolytes are normal. Reevaluated today on 11/25/2018, patient is refusing treatment at present, seems to be quite unhappy and he would like to be discharged home. Psychiatric consultation was appreciated, patient feels cold, and a warming blanket was given, he is willing to allow Dr. Patel to have his dressing changed on his right thigh abscess. Patient remains on antibiotics as per infectious disease, denies any pulmonary symptoms no cough no wheezing no shortness of breath. WBC count today is 8 hemoglobin is 8.4 electrode. Normal renal profile is normal. Reevaluated today on 11/26/2018, patient is feeling better today, he has a sitter at bedside, denies any cough wheezing or shortness of breath, continues to have daily dressing change by surgery on the case. No major issues over the last 24 hours, he was seen by psychiatry on consultation,felt that the patient has depressive disorder and it was also felt that the patient does not have decision -making capacity at this point, and felt that the patient was endorsing suicidal ideations hence the recommendation was to increase Zoloft to 100 mg daily and he was started on Remeron. Also recommended emergency temporary guardianship. In the meantime advised to continue sitter at bedside. Objective - Vital Signs Vital signs: Vital Signs Temp 98 F 11/25/18 23:00 Pulse 72 11/25/18 15:45 Resp 18 11/25/18 23:00 BP 102/59 11/25/18 23:00 Pulse Ox 92 L 11/25/18 23:00 Intake & Output 11/25/18 11/26/18 11/26/18 18:59 06:59 18:59 Intake Total 600 1850 200 Output Total 600 Balance 0 1850 200 Intake: IV 600 1850 200 D5-0.45% NaCl with KCl 600 1600 200 20Meq/l 1,000 ml @ 100 mls/hr IV .Q10H [facility] Rx#: [id number] Vancomycin 1,250 mg In 250 Sodium Chloride 0.9% 250 ml @ 125 mls/hr IVPB Q24H [facility] Rx#:[id number] Output: Urine 600 Other: Voiding Method Bedside Commode Toilet Toilet Urinal # Voids 1 2 2 # Bowel Movements 1 - Exam Physical Exam: Revealed a 63-year-old white male, shivering, not in respiratory distress. Head: Atraumatic, normocephalic. HEENT:[Neck is supple.] [No neck masses.] [No thyromegaly.] [No JVD.] PERRLA, EOMI, no icterus. Chest: [Clear throughout, no crackles, no rhonchi, no wheezes.] Symmetrical chest expansion, no chest wall tenderness. Cardiac Exam: [Normal S1 and S2, no S3 gallop, no murmur.] Abdomen: [Soft, nontender, no megaly, no rebound, no guarding, normal bowel sounds.] Extremities: Left lower extremity has evidence of the transmetatarsal amputation site The site has evidence of good granulation without significant erythema swelling or worsening tenderness. The right lower extremity , Currently the site has been incised and drained and it is packed, serous drainage is noted and soaking the dressing.. Lower extremity pulses are diminished at the present. Neurological Exam: [No focal neurologic deficit.] Alert and oriented 3. Psychiatric: Depressed mood, blunt affect, otherwise no gross focal deficit normal mental status. - Labs CBC & Chem 7: 11/26/18 05:22 11/26/18 05:22 Labs: Abnormal Lab Results - Last 24 Hours (Table) 11/22/18 11/22/1811/22/19 Range/Units 14:08 14:10 14:24 RBC (4.30-5.90) m/uL Hgb (13.0-17.5) gm/dL Hct (39.0-53.0) % RDW (11.5-15.5) % Chloride (98-107) mmol/L POC Glucose (mg/dL) 61 L 55 L 32 L (75-99) mg/dL Calcium (8.4-10.2) mg/dL 11/22/18 11/23/18 11/23/18 Range/Units 14:26 12:03 12:04 RBC (4.30-5.90) m/uL Hgb (13.0-17.5) gm/dL Hct (39.0-53.0) % RDW (11.5-15.5) % Chloride (98-107) mmol/L POC Glucose (mg/dL) 65 L 25 L 55 L (75-99) mg/dL Calcium (8.4-10.2) mg/dL 11/23/18 11/23/18 11/25/18 Range/Units 20:23 20:25 21:08 RBC (4.30-5.90) m/uL Hgb (13.0-17.5) gm/dL Hct (39.0-53.0) % RDW (11.5-15.5) % Chloride (98-107) mmol/L POC Glucose (mg/dL) 41 L 68 L 100 H (75-99) mg/dL Calcium (8.4-10.2) mg/dL 11/26/18 11/26/18 Range/Units 05:22 05:22 RBC 2.99 L (4.30-5.90) m/uL Hgb 8.2 L (13.0-17.5) gm/dL Hct 25.1 L (39.0-53.0) % RDW 15.9 H (11.5-15.5) % Chloride 108 H (98-107) mmol/L POC Glucose (mg/dL) (75-99) mg/dL Calcium 8.1 L (8.4-10.2) mg/dL Microbiology - Last 24 Hours (Table) 11/21/18 10:31 Anaerobic Culture - Final Leg - Right 11/21/18 10:31 Anaerobic Culture - Final Leg - Right 11/22/18 12:03 Blood Culture - Preliminary Blood No Growth after 72 hours Assessment and Plan Assessment: Impression: 1 acute GI bleeding, most likely upper GI related could be erosive gastritis or could be gastric ulcer disease. EGD report was noted, patient was noted to have pyloric ulcer, nonbleeding, underwent pyloric biopsies and duodenal biopsies. Hemoglobin remains stable. 2 right leg abscess secondary to retained foreign body status post exploration, incision and drainage and removal of foreign body cultures are positive for MRSA, presently on vancomycin . 3 history of peripheral vessel occlusive disease and previous bilateral femoral popliteal bypass surgery. 4 acute blood loss anemia secondary to GI bleeding 5 previous history of DVT in right lower extremity 6 severe COPD, FEV1 is in the range of 39% 7 tobacco dependence syndrome 8 previous transmetatarsal amputation of the left foot. 9 previous history of osteomyelitis 10 chronic hypoxic respiratory failure on home O2, related to underlying COPD. 11 depressive disorder, unspecified, patient cannot make his own decision at this point, it was felt by psychiatry that the patient has poor decision-making capacity, and recommended guardianship/emergency/temporary. loft worker apprentice is working on this. Recommendation: continue present supportive care measures, patient could be transferred out of the ICU to a regular medical floor, will have a sitter as 03-17, 07/10, and continue suicidal precautions. We'll sign off and see the patient on when necessary basis. Time with Patient: Less than 30
[2018-11-26] MEDS: HYDROcodone/APAP 10-325MG 1 EACH TAB PO PRN ×2 (11:48→14:57)
[2018-11-26] MEDS ORDERED: MORPHINE SULFATE 4 MG/ML SYRINGE IVP STA (11:52)
[2018-11-26 11:56] LABS: Glucose,Whole Blood 87 mg/dL (75-99)
--- NOTE | 2018-11-26 12:04 | P.VSCSTY ---
Greater Saphenous Vein Mapping This is bilateral lower extremity greater saphenous vein mapping. Date of service: 11/20/2018 Vein quality and ultrasound appearance: The right leg was not assessed due to previous bypass. Right lesser saphenous appears usable.. Vein size groin right :[ ] groin left: 6.7 x 6.6 High thigh right: high thigh left: 6.6 x 5.2 Mid thigh right: [ ] mid thigh left: 6.0 x 4.3 Above-knee right: [ ] above-knee left: 5.7 x 4.3 Below knee right: [] below- knee left: 2.9 x 2.5 Mid calf right: [] mid calf left: 2.9 x 2.2 Ankle right: [] ankle left: 2.5 x 2.0 Impression: Usable greater saphenous vein left leg.
--- NOTE | 2018-11-26 16:36 | P.PN ---
Subjective Progress Note Date: 11/26/18 Reason is evaluated today. He is awake and alert voices no complaints. A wound VAC is intact on the left foot. The wound of the right lower extremity was changed earlier today by Dr. Patel. We will ask physical therapy to begin nonweightbearing ambulation of the left lower extremity. Await placement. Objective - Vital Signs Vital signs: Vital Signs Temp 98.1 F 11/26/18 15:06 Pulse 79 11/26/18 15:06 Resp 14 11/26/18 15:30 BP 156/76 11/26/18 15:06 Pulse Ox 92 L 11/26/18 15:06 Intake & Output 11/25/18 11/26/18 11/26/18 18:59 06:59 18:59 Intake Total 600 1850 200 Output Total 600 300 Balance 0 1850 -100 Weight 82.8 kg Intake: IV 600 1850 200 D5-0.45% NaCl with KCl 600 1600 200 20Meq/l 1,000 ml @ 100 mls/hr IV .Q10H [facility] Rx#: [id number] Vancomycin 1,250 mg In 250 Sodium Chloride 0.9% 250 ml @ 125 mls/hr IVPB Q24H [facility] Rx#:[id number] Output: Urine 600 300 Other: Voiding Method Bedside Commode Toilet Toilet Urinal Urinal # Voids 1 2 2 # Bowel Movements 1 - Labs CBC & Chem 7: 11/26/18 05:22 11/26/18 05:22 Labs: Abnormal Lab Results - Last 24 Hours (Table) 11/22/18 11/22/18 11/22/18 Range/Units 14:08 14:10 14:24 RBC (4.30-5.90) m/uL Hgb (13.0-17.5) gm/dL Hct (39.0-53.0) % RDW (11.5-15.5) % Chloride (98-107) mmol/L POC Glucose (mg/dL) 61 L 55 L 32 L (75-99) mg/dL Calcium (8.4-10.2) mg/dL 11/22/18 11/23/18 11/23/18 Range/Units 14:26 12:03 12:04 RBC (4.30-5.90) m/uL Hgb (13.0-17.5) gm/dL Hct (39.0-53.0) % RDW (11.5-15.5) % Chloride (98-107) mmol/L POC Glucose (mg/dL) 65 L 25 L 55 L (75-99) mg/dL Calcium (8.4-10.2) mg/dL 11/23/18 11/23/18 11/25/18 Range/Units 20:23 20:25 21:08 RBC (4.30-5.90) m/uL Hgb (13.0-17.5) gm/dL Hct (39.0-53.0) % RDW (11.5-15.5) % Chloride (98-107) mmol/L POC Glucose (mg/dL) 41 L 68 L 100 H (75-99) mg/dL Calcium (8.4-10.2) mg/dL 11/26/18 11/26/18 Range/Units 05:22 05:22 RBC 2.99 L (4.30-5.90) m/uL Hgb 8.2 L (13.0-17.5) gm/dL Hct 25.1 L (39.0-53.0) % RDW 15.9 H (11.5-15.5) % Chloride 108 H (98-107) mmol/L POC Glucose (mg/dL) (75-99) mg/dL Calcium 8.1 L (8.4-10.2) mg/dL Microbiology - Last 24 Hours (Table) 11/22/18 12:03 Blood Culture - Preliminary Blood No Growth after 96 hours 11/21/18 10:31 Anaerobic Culture - Final Leg - Right 11/21/18 10:31 Anaerobic Culture - Final Leg - Right
[2018-11-26 16:56] LABS: Glucose,Whole Blood 89 mg/dL (75-99)
[2018-11-26] MEDS: ATORVASTATIN 20 MG TAB PO SCH (20:52)
[2018-11-26] MEDS: MIRTAZAPINE 15 MG TAB PO SCH (20:52)
[2018-11-26] MEDS: VANCOMYCIN 1,250 MG in SODIUM CHLORIDE 0.9% 250 ML IVPB SCH (20:53)
[2018-11-26 20:54] LABS: Glucose,Whole Blood 108 mg/dL (75-99)
[2018-11-26] MEDS: ZOLPIDEM 5 MG TAB PO PRN (20:55)
[2018-11-27] MEDS ORDERED: LORazepam 2 MG/ML INJ IV STA (00:49)
[2018-11-27] MEDS ORDERED: LORazepam 2 MG/ML INJ IV PRN (00:50)
[2018-11-27 08:03] LABS: Glucose,Whole Blood 98 mg/dL (75-99)
[2018-11-27] MEDS: HEPARIN SODIUM,PORCINE 5,000 UNIT/ML 1 ML VIAL SQ SCH ×2 (08:37→21:31)
[2018-11-27] MEDS: D5-0.45% NACL WITH KCL 20MEQ/L 1,000 ML IV SCH ×3 (08:38→20:52)
--- NOTE | 2018-11-27 08:44 | P.PN ---
Subjective Principal diagnosis: Peripheral vascular disease with history of cellulitis and serosanguineouhe right distal thigh. The patient had worsening cellulitis with incision and drainage of abscess. Due to his having previous bypass graft, expiration of the are was essentially done and foreign body removed. The patient continues to be treated with vancomycin. I do appreciate multiple consultants including infectious disease, vascular surgery with intensivists. Today however, he seems more depressed. We will ask appropriate psychiatric assistance today. He is on suicide watch in the ICU. He seems very depressed today. Appreciate multiple consultants Objective - Vital Signs Vital signs: Vital Signs Temp 98 F 11/27/18 07:00 Pulse 87 11/27/18 07:00 Resp 14 11/27/18 07:00 BP 133/65 11/27/18 07:00 Pulse Ox 97 11/27/18 07:00 Intake & Output 11/26/18 11/27/18 11/27/18 18:59 06:59 18:59 Intake Total 496 720 Output Total 300 Balance 196 720 Weight 82.8 kg Intake: IV 200 D5-0.45% NaCl with KCl 200 20Meq/l 1,000 ml @ 100 mls/hr IV .Q10H [facility] Rx#: [id number] Oral 296 720 Output: Urine 300 Other: Voiding Method Toilet Toilet Urinal Urinal # Voids 2 5 - Constitutional General appearance: Present: no acute distress - EENT Eyes: Absent: abnormal pupil - Neck Neck: Absent: lymphadenopathy - Cardiovascular Rhythm: regular Heart sounds: normal: S1, S2 Abnormal Heart Sounds: Absent: S3 Gallop - Gastrointestinal General gastrointestinal: Present: soft. Absent: tenderness - Integumentary Integumentary: Present: cellulitis - Psychiatric Psychiatric: Absent: appropriate affect, intact judgment & insight - Labs CBC & Chem 7: 11/26/18 05:22 11/27/18 07:33 Labs: Abnormal Lab Results - Last 24 Hours (Table) 11/22/18 11/22/18 11/22/18 Range/Units 14:08 14:10 14:24 POC Glucose (mg/dL) 61 L 55 L 32 L (75-99) mg/dL 11/22/18 11/23/18 11/23/18 Range/Units 14:26 12:03 12:04 POC Glucose (mg/dL) 65 L 25 L 55 L (75-99) mg/dL 11/23/18 11/23/18 11/26/18 Range/Units 20:23 20:25 20:43 POC Glucose (mg/dL) 41 L 68 L 108 H (75-99) mg/dL Microbiology - Last 24 Hours (Table) 11/22/18 12:03 Blood Culture - Preliminary Blood No Growth after 96 hours Assessment and Plan (1) Leukocytosis Current Visit: Yes Status: Acute Code(s): D72.829 - ELEVATED WHITE BLOOD CELL COUNT, UNSPECIFIED SNOMED Code(s): 378543041 (2) MRSA (methicillin resistant staph aureus) culture positive Current Visit: Yes Status: Acute Code(s): Z22.322 - CARRIER OR SUSPECTED CARRIER OF METHICILLIN RESIS STAPH SNOMED Code(s): 273073479 (3) Soft tissue mass Current Visit: Yes Status: Acute Code(s): M79.89 - OTHER SPECIFIED SOFT TISSUE DISORDERS SNOMED Code(s): 406898543 (4) COPD (chronic obstructive pulmonary disease) Current Visit: No Status: Acute Code(s): J44.9 - CHRONIC OBSTRUCTIVE PULMONARY DISEASE, UNSPECIFIED SNOMED Code(s): 77926448 (5) Partial nontraumatic amputation of left foot Current Visit: No Status: Acute Code(s): Z89.432 - ACQUIRED ABSENCE OF LEFT FOOT SNOMED Code(s): 364530708 (6) Seroma Current Visit: No Status: Acute Code(s): EZK9913 - SNOMED Code(s): 183659096 (7) Acute depression Current Visit: Yes Status: Acute Code(s): F32.9 - MAJOR DEPRESSIVE DISORDER, SINGLE EPISODE, UNSPECIFIED SNOMED Code(s): 566279137 Plan: Appreciate multiple consultants input. The care team has been aware of his overall depressive behavior for the last 24 hours. We will continue and appreciate psychiatric input. Check CBC and CMP in a.m. Altered mental status related to encephalopathy from underlying medical illness and element of infection.
--- NOTE | 2018-11-27 08:56 | P.PN ---
Subjective Principal diagnosis: Peripheral vascular disease with history of cellulitis and serosanguineouhe right distal thigh. Chief complaint is not able to obtain secondary to mental state. He's been on suicide precautions for the last 3-4 days. Appreciate psychiatric input. He is been refusing medications otherwise. No new complaints Objective - Vital Signs Vital signs: Vital Signs Temp 98 F 11/27/18 07:00 Pulse 87 11/27/18 07:00 Resp 14 11/27/18 07:00 BP 133/65 11/27/18 07:00 Pulse Ox 97 11/27/18 07:00 Intake & Output 11/26/18 11/27/18 11/27/18 18:59 06:59 18:59 Intake Total 496 720 Output Total 300 Balance 196 720 Weight 82.8 kg Intake: IV 200 D5-0.45% NaCl with KCl 200 20Meq/l 1,000 ml @ 100 mls/hr IV .Q10H [facility] Rx#: [id number] Oral 296 720 Output: Urine 300 Other: Voiding Method Toilet Toilet Urinal Urinal # Voids 2 5 - Constitutional General appearance: Present: no acute distress - Respiratory Respiratory: bilateral: diminished - Cardiovascular Abnormal Heart Sounds: Absent: S3 Gallop - Gastrointestinal General gastrointestinal: Present: soft. Absent: tenderness - Integumentary Integumentary Comment(s): No worsening of wound areas of the lower extremities. Wound VAC is now noted. - Labs CBC & Chem 7: 11/26/18 05:22 11/27/18 07:33 Labs: Abnormal Lab Results - Last 24 Hours (Table) 11/22/18 11/22/18 11/22/18 Range/Units 14:08 14:10 14:24 POC Glucose (mg/dL) 61 L 55 L 32 L (75-99) mg/dL 11/22/18 11/23/18 11/23/18 Range/Units 14:26 12:03 12:04 POC Glucose (mg/dL) 65 L 25 L 55 L (75-99) mg/dL 11/23/18 11/23/18 11/26/18 Range/Units 20:23 20:25 20:43 POC Glucose (mg/dL) 41 L 68 L 108 H (75-99) mg/dL Microbiology - Last 24 Hours (Table) 11/22/18 12:03 Blood Culture - Preliminary Blood No Growth after 96 hours Assessment and Plan (1) Leukocytosis Current Visit: Yes Status: Acute Code(s): D72.829 - ELEVATED WHITE BLOOD CELL COUNT, UNSPECIFIED SNOMED Code(s): 010412778 (2) MRSA (methicillin resistant staph aureus) culture positive Current Visit: Yes Status: Acute Code(s): Z22.322 - CARRIER OR SUSPECTED CARRIER OF METHICILLIN RESIS STAPH SNOMED Code(s): 511147298 (3) Soft tissue mass Current Visit: Yes Status: Acute Code(s): M79.89 - OTHER SPECIFIED SOFT TISSUE DISORDERS SNOMED Code(s): 575392762 (4) COPD (chronic obstructive pulmonary disease) Current Visit: No Status: Acute Code(s): J44.9 - CHRONIC OBSTRUCTIVE PULMONARY DISEASE, UNSPECIFIED SNOMED Code(s): 23583273 (5) Partial nontraumatic amputation of left foot Current Visit: No Status: Acute Code(s): Z89.432 - ACQUIRED ABSENCE OF LEFT FOOT SNOMED Code(s): 583936080 (6) Seroma Current Visit: No Status: Acute Code(s): VXM5521 - SNOMED Code(s): 966516756 (7) Acute depression Current Visit: Yes Status: Acute Code(s): F32.9 - MAJOR DEPRESSIVE DISORDER, SINGLE EPISODE, UNSPECIFIED SNOMED Code(s): 516756404 Plan: Await possible placement to psychiatric unit given his overall change in mental status. The patient is noncommunicative at this time but has expressed the past concerned because of his foreign-body of the right lower extremity that was recently found to cause an infection. Dr. Recio's group will be covering the weekend. Prognosis is guarded secondary to his multiple comorbidities. Check CBC and CMP in a.m. if possible.
[2018-11-27] MEDS: PANTOPRAZOLE 40 MG TABLET PO SCH ×2 (09:08→17:18)
[2018-11-27] MEDS: METOPROLOL TARTRATE 25 MG TAB PO SCH (09:09)
[2018-11-27] MEDS: SERTRALINE 100 MG TAB PO SCH (09:09)
[2018-11-27] MEDS: DIAZEPAM 5 MG TAB PO SCH ×2 (09:09→20:52)
[2018-11-27] MEDS: MAGNESIUM OXIDE 400 MG TAB PO SCH (09:09)
[2018-11-27] MEDS: ZINC SULFATE 220 MG CAP PO SCH (09:09)
[2018-11-27] MEDS: COLCHICIN-PROBENECID 0.5-500MG 1 EACH TAB PO SCH (09:09)
[2018-11-27] MEDS: NICOTINE 21MG/24HR PATCH TRANSDERM SCH (10:22)
[2018-11-27 11:39] LABS: Glucose,Whole Blood 99 mg/dL (75-99)
--- NOTE | 2018-11-27 14:10 | P.PN ---
Subjective Progress Note Date: 11/27/18 Principal diagnosis: Acute GI bleed, right thigh abscess secondary to retained foreign body. 63-year-old gentleman who has been currently treated at the Hospital for a right lower leg/medial thigh mass which was previously needle aspirated demonstrating abscess. Since that aspiration the mass has increased in size. He was recently seen in the office and underwent ultrasound which demonstrated no evidence of pseudoaneurysm. Patient states he had had that swelling for several years without any pain and therefore we instructed him if it became more painful or increase in size that he would need a CT angiogram. He then went to the hospital emergency department where he had it drained and cultures came back MRSA. He was seen yesterday and a CT angiogram was obtained demonstrating good flow through the bypass without evidence of pseudoaneurysm but what appeared to be radiopaque coils around the bypass. We did obtain vein mapping just in case a revision bypass was needed and then he was scheduled for exploration and drainage of abscess. The patient was taken to the operating room on 11/21/2018. The patient underwent a right medial thigh exploration with removal of foreign body and drainage of the abscess. Estimated blood loss was 20 mL. This morning, the patient was noted to have some melanotic stool. GI bleeding was suspected. Note that hemoglobin was around 10 at a time of admission and dropped gradually down to 7. and on to 6.9. The patient got transferred to the intensive care unit. Coagulation profile has not been done yet. He admits to take nonsteroidal anti-inflammatory medication for chronic pain. He also admits to have gastric ulcers although he has not had any previous EGD. His colonoscopy was done approximately a year ago. He is currently hemodynamically stable. He is receiving a unit of packed RBC. Follow-up blood work is still pending for now. He was placed on IV Protonix. His occult stool is positive. He continues to have issues with peripheral vascular disease. 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 He has been seen at the wound clinic. Chest x-ray shows no acute abnormalities. Noted the patient also has history of gout and he takes colchicine. Patient was reevaluated today on 11/23/2018, remains in the ICU, awaiting to have EGD today. Patient seems to be comfortable, he is hemodynamically stable, has been taking nonsteroidal anti-inflammatory medications for chronic pain, and had previous history of gastric ulcers in the past. Received a total of 2 units of packed RBCs since admission, hemoglobin today is 9.1. Remains on IV Protonix. His Hemoccult stool was positive. Seen by gastroenterology, and I believe he is scheduled to undergo EGD today. His last colonoscopy was about a year ago. Continues to have close follow-up by vascular surgery regarding his right thigh abscess related to foreign body retention from previous surgery. Reevaluated today on 11/24/2018, patient is doing quite well, relatively asymptomatic, he will have dressing changes on his right thigh wound by Dr. Patel later today. Patient is hemodynamically stable, EGD yesterday showed nonbleeding superficial ulcer of the pylorus. Hence the patient was kept on Protonix 40 mg twice a day, and no need for any further endoscopic evaluation. Biopsies of the superficial ulcer are pending patient also had some duodenal biopsies. Advised by GI to avoid nonsteroidal anti-inflammatory drugs. Labs including CBC were reviewed today hemoglobin is 8.8 today renal profile is normal. Electrolytes are normal. Reevaluated today on 11/25/2018, patient is refusing treatment at present, seems to be quite unhappy and he would like to be discharged home. Psychiatric consultation was appreciated, patient feels cold, and a warming blanket was given, he is willing to allow Dr. Patel to have his dressing changed on his right thigh abscess. Patient remains on antibiotics as per infectious disease, denies any pulmonary symptoms no cough no wheezing no shortness of breath. WBC count today is 8 hemoglobin is 8.4 electrode. Normal renal profile is normal. Reevaluated today on 11/26/2018, patient is feeling better today, he has a sitter at bedside, denies any cough wheezing or shortness of breath, continues to have daily dressing change by surgery on the case. No major issues over the last 24 hours, he was seen by psychiatry on consultation,felt that the patient has depressive disorder and it was also felt that the patient does not have decision-making capacity at this point, and felt that the patient was endorsing suicidal ideations hence the recommendation was to increase Zoloft to 100 mg daily and he was started on Remeron. Also recommended emergency temporary guardianship. In the meantime advised to continue sitter at bedside. The patient is seen today 11/27/2018 in follow-up on the regular medical floor. He is currently resting in bed. More cooperative with staff. Out of restraints. commercial crabber remains at the bedside. Denies any shortness of breath cough or congestion. Maintaining O2 saturations in the 90s on room air. Remai ns on vancomycin. Objective - Vital Signs Vital signs: Vital Signs Temp 98 F 11/27/18 07:00 Pulse 87 11/27/18 07:00 Resp 14 11/27/18 07:00 BP 133/65 11/27/18 07:00 Pulse Ox 97 11/27/18 07:00 Intake & Output 11/26/18 11/27/18 11/27/18 18:59 06:59 18:59 Intake Total 496 720 Output Total 300 400 Balance 196 720 -400 Weight 82.8 kg Intake: IV 200 D5-0.45% NaCl with KCl 200 20Meq/l 1,000 ml @ 100 mls/hr IV .Q10H [facility] Rx#: [id number] Oral 296 720 Output: Urine 300 400 Other: Voiding Method Toilet Toilet Urinal Urinal # Voids 2 5 - Exam Physical Exam: Revealed a 63-year-old white male, on room air, not in respiratory distress. Head: Atraumatic, normocephalic. HEENT:[Neck is supple.] [No neck masses.] [No thyromegaly.] [No JVD.] PERRLA, EOMI, no icterus. Chest: [Clear throughout, no crackles, no rhonchi, no wheezes.] Symmetrical chest expansion, no chest wall tenderness. Cardiac Exam: [Normal S1 and S2, no S3 gallop, no murmur.] Abdomen: [Soft, nontender, no megaly, no rebound, no guarding, normal bowel sounds.] Extremities: Left lower extremity has evidence of the transmetatarsal amputation site The site has evidence of good granulation without significant erythema swelling or worsening tenderness. The right lower extremity , Currently the site has been incised and drained and it is packed, serous drainage is noted and soaking the dressing.. Lower extremity pulses are diminished at the present. Neurological Exam: [No focal neurologic deficit.] Alert and oriented 3. Psychiatric: Depressed mood, blunt affect, otherwise no gross focal deficit normal mental status. - Labs CBC & Chem 7: 11/26/18 05:22 11/27/18 07:33 Labs: Abnormal Lab Results - Last 24 Hours (Table) 11/26/18 Range/Units 20:43 POC Glucose (mg/dL) 108 H (75-99) mg/dL Microbiology - Last 24 Hours (Table) 11/22/18 12:03 Blood Culture - Preliminary Blood No Growth after 96 hours Assessment and Plan Assessment: Impression: 1 acute GI bleeding, most likely upper GI related could be erosive gastritis or could be gastric ulcer disease. EGD report was noted, patient was noted to have pyloric ulcer, nonbleeding, underwent pyloric biopsies and duodenal biopsies. Hemoglobin remains stable. 2 right leg abscess secondary to retained foreign body status post exploration, incision and drainage and removal of foreign body cultures are positive for MRSA, presently on vancomycin . 3 history of peripheral vessel occlusive disease and previous bilateral femoral popliteal bypass surgery. 4 acute blood loss anemia secondary to GI bleeding 5 previous history of DVT in right lower extremity 6 severe COPD, FEV1 is in the range of 39% 7 tobacco dependence syndrome 8 previous transmetatarsal amputation of the left foot. 9 previous history of osteomyelitis 10 chronic hypoxic respiratory failure on home O2, related to underlying COPD. 11 depressive disorder, unspecified, patient cannot make his own decision at this point, it was felt by psychiatry that the patient has poor decision-making capacity, and recommended guardianship/emergency/temporary. lavender farm worker is working on this. Recommendation: The patient was seen and evaluated by Dr. Felipe. He is currently stable form the pulmonary and critical care standppoint. We will see the patient on an as needed basis. I attest to the above note as dictated by my nurse practitioner, Cony Yuan. Lung sounds clear, on room air.
[2018-11-27] MEDS ORDERED: MORPHINE SULFATE 4 MG/ML SYRINGE IVP STA ×2 (14:57→15:01)
--- NOTE | 2018-11-27 15:49 | P.PN ---
Progress Note - Text Progress Note Date: 11/27/18 Psychiatric progress note: Interval History: Patient was seen for follow-up today by staff writer for suicidal ideations and depression from the original consultation. Patient continues to be on one-to-one sitter for safety and has had his Zoloft increased to 100 mg daily along with Remeron 15 mg daily at bedtime for mood and insomnia. Patient has been taking these medications except for the Zoloft not given today as patient refused. Patient continues receiving antibiotics and fluids along with wound care for his foot. As per nurse taking care patient, he claims that patient did have an episode yesterday of aggressiveness and had to be put in 4 point restraints and was petitioned. She was agreeable to speak to staff writer this afternoon and patient was laying down and appeared to have a constricted affect with poor eye contact looking away from staff writer. Patient was very concrete and minimalistic with his answers and appeared to be guarded. He states that his pain is improved in the offers no complaints. He stated that yesterday he would cut angry because they wouldn't let him leave to see his on the anniversary of her . He states that he is receiving Valium which she claims is helping his mood. At this time he is denying any suicidal or homicidal ideations intent or plan. He states that his sleep has improved however his appetite is poor. Patient is somewhat future oriented today and spoke about doing laundry and fixing up his house when he leaves the hospital. Patient denies any auditory, visual hallucinations and denies any paranoia or delusions. Patient denies any side effects from the medications and has been compliant with meds. Mental Status Exam: General Appearance: Patient appears to be older than stated age is alert, directable yet is guarded. Patient is thin and appears to be frail lying in hospital bed with fair hygiene and grooming. Poor eye contact. Behavior: Patient is calmly lying in bed without any agitated behavior. Speech: Patient's speech is fluent and nonpressured. Soft tone Mood/Affect: Patient reports their mood is "fine", affect is incongruent and constricted Suicidality/Homicidality: Patient denies having any suicidal or homicidal ideation intent or plan. Perceptions: Patient denies any auditory or visual hallucinations. Though content/process: There is no evidence of any delusional thought content and thought process is linear and goal-directed. Somewhat future oriented and spoke about his life and wanting to leave the hospital. Memory and concentration: AOX3, grossly intact for the purposes of this session. Judgment and insight: Poor, improved mildly. Assessment Depressive disorder unspecified Alcohol use disorder Cannabis use disorder PLAN: -Patient continues to be guarded and evasive with staff writer, has a depressed affect and soft tone of his voice however states that his mood has improved and is somewhat future oriented. Patient has been taking his medication with the exception of Zoloft this morning which was refused by patient. Patient continues to be high risk for potential self-harm. -Continue with Zoloft 100 mg daily for mood. Will continue with Remeron 15 mg daily at bedtime for appetite insomnia and mood. -Patient does not have capacity to refuse treatment/sign out AMA at this time and if patient is not engaging in treatment then patient will need an emergency temporary guardian. -Continue 1:1 sitter for safety -Continue with medical management and treatment as per primary team. -Will continue to follow along and please call with any questions.
--- NOTE | 2018-11-27 15:57 | P.PN ---
Subjective Progress Note Date: 11/27/18 Principal diagnosis: s/p right medial thigh abscess drainage patient seen and examined. Doing well, no complaints at this time. Objective - Vital Signs Vital signs: Vital Signs Temp 98.1 F 11/27/18 14:29 Pulse 89 11/27/18 14:29 Resp 16 11/27/18 14:29 BP 123/66 11/27/18 14:29 Pulse Ox 92 L 11/27/18 14:29 Intake & Output 11/26/18 11/27/18 11/27/18 18:59 06:59 18:59 Intake Total 496 720 Output Total 300 400 Balance 196 720 -400 Weight 82.8 kg Intake: IV 200 D5-0.45% NaCl with KCl 200 20Meq/l 1,000 ml @ 100 mls/hr IV .Q10H [facility] Rx#: [id number] Oral 296 720 Output: Urine 300 400 Other: Voiding Method Toilet Toilet Urinal Urinal # Voids 2 5 3 - Exam right medial thigh incision site is clean. There is dressings in place that have serosanguinous drainage. palpable peripheral pulses right foot. left TMA site dressing intact. - Labs CBC & Chem 7: 11/26/18 05:22 11/27/18 07:33 Labs: Abnormal Lab Results - Last 24 Hours (Table) 11/26/18 Range/Units 20:43 POC Glucose (mg/dL) 108 H (75-99) mg/dL Microbiology - Last 24 Hours (Table) 11/22/18 12:03 Blood Culture - Preliminary Blood No Growth after 120 hours Assessment and Plan Assessment: 1. Right medial knee mass 2. Severe peripheral vascular disease 3. Left transmetatarsal amputation wound 4. Melena with blood loss anemia Plan: packing changed, will continue changes daily. Your medical management
[2018-11-27 16:43] LABS: Glucose,Whole Blood 93 mg/dL (75-99)
[2018-11-27 16:45] LABS: Glucose,Whole Blood 114 mg/dL (75-99)
[2018-11-27 16:47] LABS: Glucose,Whole Blood 119 mg/dL (75-99)
[2018-11-27 20:09] LABS: Glucose,Whole Blood 118 mg/dL (75-99)
[2018-11-27] MEDS: VANCOMYCIN 1,250 MG in SODIUM CHLORIDE 0.9% 250 ML IVPB SCH (20:50)
[2018-11-27] MEDS: ATORVASTATIN 20 MG TAB PO SCH (20:52)
[2018-11-27] MEDS: MIRTAZAPINE 15 MG TAB PO SCH (20:52)
[2018-11-27] MEDS: HYDROcodone/APAP 10-325MG 1 EACH TAB PO PRN (21:02)
[2018-11-28 07:02] LABS: Glucose,Whole Blood 108 mg/dL (75-99)
[2018-11-28] MEDS: VANCOMYCIN 1,500 MG in SODIUM CHLORIDE 0.9% 250 ML IVPB SCH (07:17)
[2018-11-28 08:02] LABS: Anisocytosis Slight; HCT 24.4 % (39.0-53.0); MCH 27.8 pg (25.0-35.0); MCHC 32.8 g/dL (31.0-37.0); MCV 84.7 fL (80.0-100.0); Mean Platelet Volume 7.2; Platelet Count 413 k/uL (150-450); RBC 2.88 m/uL (4.30-5.90); RDW 16.8 % (11.5-15.5); WBC 12.7 k/uL (3.8-10.6)
[2018-11-28 08:13] LABS: Albumin 2.3 g/dL (3.5-5.0); Calcium 8.1 mg/dL (8.4-10.2); Potassium 4.3 mmol/L (3.5-5.1); Total Bilirubin 0.2 mg/dL (0.2-1.3); Total Protein 5.3 g/dL (6.3-8.2)
[2018-11-28] MEDS: D5-0.45% NACL WITH KCL 20MEQ/L 1,000 ML IV SCH ×3 (09:21→23:14)
[2018-11-28] MEDS: METOPROLOL TARTRATE 25 MG TAB PO SCH (09:21)
[2018-11-28] MEDS: NICOTINE 21MG/24HR PATCH TRANSDERM SCH (09:21)
[2018-11-28] MEDS: DIAZEPAM 5 MG TAB PO SCH ×2 (09:22→23:00)
[2018-11-28] MEDS: PANTOPRAZOLE 40 MG TABLET PO SCH ×2 (09:22→16:49)
[2018-11-28] MEDS: MAGNESIUM OXIDE 400 MG TAB PO SCH (09:22)
[2018-11-28] MEDS: HEPARIN SODIUM,PORCINE 5,000 UNIT/ML 1 ML VIAL SQ SCH ×2 (09:22→23:00)
[2018-11-28] MEDS: SERTRALINE 100 MG TAB PO SCH (09:22)
[2018-11-28] MEDS: ZINC SULFATE 220 MG CAP PO SCH (09:23)
[2018-11-28] MEDS: COLCHICIN-PROBENECID 0.5-500MG 1 EACH TAB PO SCH (09:23)
[2018-11-28 11:51] LABS: Glucose,Whole Blood 103 mg/dL (75-99)
--- NOTE | 2018-11-28 12:23 | P.PN ---
Subjective On-call hospitalist covering for Dr. Bui over the weekend This is a pleasant 63 years old male with past medical history of COPD, right lower extremity deep venous thrombosis, GERD, hearing difficulty, osteoarthritis, peripheral vascular disease, status post toe amputation of the left side. He is been in the hospital for more than a week now and his main problems including upper GI bleed and right leg abscess related to his peripheral vascular disease. Patient has been followed by several consultants including pulmonary/critical care, vascular surgery and psychiatrist for his depression and substance abuse. Currently he is on Zoloft 100 mg daily and Remeron 15 mg. Patient has an order for sitter one-to-one for safety and for psychiatrist patient does not have capacity to make medical decision. Patient had right medial thigh I and D for an abscess secondary to retained foreign body done on 11/21/2018. If after that patient has been treated with antibiotics as per infectious disease recommendation for his abscess and MRSA infection in his right side. Patent patient seems to be improving and this therapy. Currently vital signs stable. His WBC is slightly elevated today as 12.7 K, creatinine is 1.2, liver enzymes not elevated. Patient underwent EGD with biopsy on 11/23/2018 showing acute duodenitis and chronic active gastritis and negative for H. pylori. Patient currently on IV vancomycin and Protonix twice daily. Objective - Vital Signs Vital signs: Vital Signs Temp 98.2 F 11/28/18 07:57 Pulse 88 11/28/18 07:57 Resp 12 11/28/18 07:57 BP 120/62 11/28/18 07:57 Pulse Ox 93 L 11/28/18 07:57 Intake & Output 11/27/18 11/28/18 11/28/18 18:59 06:59 18:59 Intake Total 650 Output Total 400 Balance -400 650 Intake: IV 650 D5-0.45% NaCl with KCl 650 20Meq/l 1,000 ml @ 100 mls/hr IV .Q10H YASMIN Rx#: [id number] Output: Urine 400 Other: Voiding Method Toilet Toilet # Voids 1 2 1 - Exam GENERAL: The patient is alert and oriented x3, not in any acute distress. Well developed, well nourished. HEENT: Pupils are round and equally reacting to light. EOMI. No scleral icterus. No conjunctival pallor. Normocephalic, atraumatic. No pharyngeal erythema. No thyromegaly. CARDIOVASCULAR: S1 and S2 present. No murmurs, rubs, or gallops. PULMONARY: Chest is clear to auscultation, no wheezing or crackles. ABDOMEN: Soft, nontender, nondistended, normoactive bowel sounds. No palpable organomegaly. MUSCULOSKELETAL: No joint swelling or deformity. -EXTREMITIES: No cyanosis, clubbing, or pedal edema. Right thigh wound is healing with dressing is in place NEUROLOGICAL: Gross neurological examination did not reveal any focal deficits. SKIN: No rashes. - Labs CBC & Chem 7: 11/28/18 07:41 11/28/18 07:41 Labs: Abnormal Lab Results - Last 24 Hours (Table) 11/27/18 11/27/18 11/27/18 Range/Units 16:43 16:46 20:07 WBC (3.8-10.6) k/uL RBC (4.30-5.90) m/uL Hgb (13.0-17.5) gm/dL Hct (39.0-53.0) % RDW (11.5-15.5) % BUN (9-20) mg/dL POC Glucose (mg/dL) 114 H 119 H 118 H (75-99) mg/dL Calcium (8.4-10.2) mg/dL ALT (21-72) U/L Total Protein (6.3-8.2) g/dL Albumin (3.5-5.0) g/dL 11/28/18 11/28/18 11/28/18 Range/Units 06:50 07:41 07:41 WBC 12.7 H (3.8-10.6) k/uL RBC 2.88 L (4.30-5.90) m/uL Hgb 8.0 L (13.0-17.5) gm/dL Hct 24.4 L (39.0-53.0) % RDW 16.8 H (11.5-15.5) % BUN 7 L (9-20) mg/dL POC Glucose (mg/dL) 108 H (75-99) mg/dL Calcium 8.1 L (8.4-10.2) mg/dL ALT 15 L (21-72) U/L Total Protein 5.3 L (6.3-8.2) g/dL Albumin 2.3 L (3.5-5.0) g/dL 11/28/18 Range/Units 11:39 WBC (3.8-10.6) k/uL RBC (4.30-5.90) m/uL Hgb (13.0-17.5) gm/dL Hct (39.0-53.0) % RDW (11.5-15.5) % BUN (9-20) mg/dL POC Glucose (mg/dL) 103 H (75-99) mg/dL Calcium (8.4-10.2) mg/dL ALT (21-72) U/L Total Protein (6.3-8.2) g/dL Albumin (3.5-5.0) g/dL Microbiology - Last 24 Hours (Table) 11/22/18 12:03 Blood Culture - Preliminary Blood No Growth after 120 hours Assessment and Plan Assessment: Upper GI bleed secondary to peptic ulcer, improving Right upper thigh infection status post I&D for sepsis secondary to foreign body removal. Improving Major depressive disorders with suicidal ideation. Followed by psychiatry closely Substance abuse including alcohol and cannabis, patient is counseled Peripheral vascular disease, status post amputation of the left toe and distal foot Previous history of right lower extremity DVT History of severe COPD Nicotine dependence Chronic hypoxic respiratory failure on home oxygen Plan: This is a pleasant 63 years old male who presents with multiple problems including GI bleed and dry thigh is an infection. Continue with antibiotics as per infectious disease recommendation. Keep monitoring hemoglobin although sustainable. Psychiatry of following the patient closely and patient currently does not have capacity to make decisions and he cannot leave AGAINST MEDICAL ADVICE. Order Sitter at bedside for safety. However patient does not want to leave right now. Discussed with the staff about this recommendation Labs and medication were reviewed.. Continue same treatment. Continue with symptomatic treatment. Resume home medication. Monitor lytes and vitals. DVT and GI prophylaxis. Further recommendations of the clinical course of the patient DVT prophylaxis: Subcutaneous heparin GI Prophylaxis: Pepcid Prognosis is guarded
[2018-11-28] MEDS: HYDROcodone/APAP 10-325MG 1 EACH TAB PO PRN (16:49)
[2018-11-28 17:50] LABS: Glucose,Whole Blood 103 mg/dL (75-99)
[2018-11-28 21:20] LABS: Glucose,Whole Blood 137 mg/dL (75-99)
[2018-11-28] MEDS: ATORVASTATIN 20 MG TAB PO SCH (22:56)
[2018-11-28] MEDS: VANCOMYCIN 1,250 MG in SODIUM CHLORIDE 0.9% 250 ML IVPB SCH (22:57)
[2018-11-28] MEDS: MIRTAZAPINE 15 MG TAB PO SCH (22:57)
[2018-11-29 07:21] LABS: Glucose,Whole Blood 97 mg/dL (75-99)
[2018-11-29 07:51] LABS: Calcium 8.1 mg/dL (8.4-10.2); Potassium 4.4 mmol/L (3.5-5.1)
[2018-11-29] MEDS: D5-0.45% NACL WITH KCL 20MEQ/L 1,000 ML IV SCH (09:15)
[2018-11-29] MEDS: HEPARIN SODIUM,PORCINE 5,000 UNIT/ML 1 ML VIAL SQ SCH (09:16)
[2018-11-29] MEDS: DIAZEPAM 5 MG TAB PO SCH (09:16)
[2018-11-29] MEDS: MAGNESIUM OXIDE 400 MG TAB PO SCH (09:16)
[2018-11-29] MEDS: PANTOPRAZOLE 40 MG TABLET PO SCH ×2 (09:16→17:59)
[2018-11-29] MEDS: NICOTINE 21MG/24HR PATCH TRANSDERM SCH (09:16)
[2018-11-29] MEDS: SERTRALINE 100 MG TAB PO SCH (09:16)
[2018-11-29] MEDS: ZINC SULFATE 220 MG CAP PO SCH (09:16)
[2018-11-29] MEDS: COLCHICIN-PROBENECID 0.5-500MG 1 EACH TAB PO SCH (09:17)
[2018-11-29] MEDS: METOPROLOL TARTRATE 25 MG TAB PO SCH (09:20)
[2018-11-29] MEDS ORDERED: MORPHINE SULFATE 4 MG/ML SYRINGE IVP STA (09:38)
--- NOTE | 2018-11-29 10:21 | P.PN ---
Subjective Progress Note Date: 11/29/18 Pt s/e. Refused dressing change yesterday. Today was agreeable No acute distress resting comfortably No respiratory distress Heart regular Abdomen soft Right lower extremity dressing removed, purulent drainage on dressing. Irrigated with hydrogen peroxide and saline. Wet-to-dry dressing were placed as patient can tolerate it Left lower extremity wound VAC in place with good seal Continue local wound care and daily dressing changes to the right thigh. L TMA wound with good granulation tissue. At some point will need revision d/t some bone. No urgency, may be done as outpatient VAC change every 3 days Continue antibiotics Objective - Vital Signs Vital signs: Vital Signs Temp 98.3 F 11/29/18 07:00 Pulse 89 11/29/18 09:19 Resp 14 11/29/18 07:00 BP 116/82 11/29/18 09:19 Pulse Ox 92 L 11/29/18 07:00 Intake & Output 11/28/18 11/29/18 11/29/18 18:59 06:59 18:59 Other: Voiding Method Toilet Toilet Toilet # Voids 2 0 - Labs CBC & Chem 7: 11/28/18 07:41 11/29/18 06:46 Labs: Abnormal Lab Results - Last 24 Hours (Table) 11/28/18 11/28/18 11/28/18 Range/Units 11:39 17:49 21:19 Creatinine (0.66-1.25) mg/dL POC Glucose (mg/dL) 103 H 103 H 137 H (75-99) mg/dL Calcium (8.4-10.2) mg/dL 11/29/18 Range/Units 06:46 Creatinine 1.31 H (0.66-1.25) mg/dL POC Glucose (mg/dL) (75-99) mg/dL Calcium 8.1 L (8.4-10.2) mg/dL Microbiology - Last 24 Hours (Table) 11/22/18 12:03 Blood Culture - Final Blood No Growth after 144 hours
--- NOTE | 2018-11-29 10:37 | P.PN ---
Subjective On-call hospitalist covering for Dr. Bui over the weekend This is a pleasant 63 years old male with past medical history of COPD, right lower extremity deep venous thrombosis, GERD, hearing difficulty, osteoarthritis, peripheral vascular disease, status post toe amputation of the left side. He is been in the hospital for more than a week now and his main problems including upper GI bleed and right leg abscess related to his peripheral vascular disease. Patient has been followed by several consultants including pulmonary/critical care, vascular surgery and psychiatrist for his depression and substance abuse. Currently he is on Zoloft 100 mg daily and Remeron 15 mg. Patient has an order for sitter one-to-one for safety and for psychiatrist patient does not have capacity to make medical decision. Patient had right medial thigh I and D for an abscess secondary to retained foreign body done on 11/21/2018. If after that patient has been treated with antibiotics as per infectious disease recommendation for his abscess and MRSA infection in his right side. Patent patient seems to be improving and this therapy. Currently vital signs stable. His WBC is slightly elevated today as 12.7 K, creatinine is 1.2, liver enzymes not elevated. Patient underwent EGD with biopsy on 11/23/2018 showing acute duodenitis and chronic active gastritis and negative for H. pylori. Patient currently on IV vancomycin and Protonix twice daily. 11/29/2018 Patient is awake and alert, he looks calm. He told the staff that he wants to go home. However he did not complain to me. Sitter at bedside. I want looks healing and there is a wick in the wound soaked with bloody discharge. No surrounding cellulitis. No more evidence of bleeding from his gastrointestinal tract. Wound VAC on his left foot is in place. Continue with local wound care and dressing. Patient still has significant depression with a sitter at bedside for possible suicidal ideation. Psychiatrist evaluated the patient as not having capacity to make medical decision. Discussed with staff patient cannot leave AMA because of his mental status. However patient did not mention and does not want to leave AMA currently. Patient is been followed by several consultants. Dr. Bui will resume the care of the patient tomorrow Objective - Vital Signs Vital signs: Vital Signs Temp 98.3 F 11/29/18 07:00 Pulse 89 11/29/18 09:19 Resp 14 11/29/18 07:00 BP 116/82 11/29/18 09:19 Pulse Ox 92 L 11/29/18 07:00 Intake & Output 11/28/18 11/29/18 11/29/18 18:59 06:59 18:59 Other: Voiding Method Toilet Toilet Toilet # Voids 2 0 - Exam GENERAL: The patient is alert and oriented x3, not in any acute distress. Well developed, well nourished. HEENT: Pupils are round and equally reacting to light. EOMI. No scleral icterus. No conjunctival pallor. Normocephalic, atraumatic. No pharyngeal erythema. No thyromegaly. CARDIOVASCULAR: S1 and S2 present. No murmurs, rubs, or gallops. PULMONARY: Chest is clear to auscultation, no wheezing or crackles. ABDOMEN: Soft, nontender, nondistended, normoactive bowel sounds. No palpable o rganomegaly. MUSCULOSKELETAL: No joint swelling or deformity. -EXTREMITIES: No cyanosis, clubbing, or pedal edema. Right thigh wound is healing with dressing is in place NEUROLOGICAL: Gross neurological examination did not reveal any focal deficits. SKIN: No rashes. - Labs CBC & Chem 7: 11/28/18 07:41 11/29/18 06:46 Labs: Abnormal Lab Results - Last 24 Hours (Table) 11/28/18 11/28/18 11/28/18 Range/Units 11:39 17:49 21:19 Creatinine (0.66-1.25) mg/dL POC Glucose (mg/dL) 103 H 103 H 137 H (75-99) mg/dL Calcium (8.4-10.2) mg/dL 11/29/18 Range/Units 06:46 Creatinine 1.31 H (0.66-1.25) mg/dL POC Glucose (mg/dL) (75-99) mg/dL Calcium 8.1 L (8.4-10.2) mg/dL Microbiology - Last 24 Hours (Table) 11/22/18 12:03 Blood Culture - Final Blood No Growth after 144 hours Assessment and Plan Assessment: Upper GI bleed secondary to peptic ulcer, improving Right upper thigh infection status post I&D for sepsis secondary to foreign body removal. Improving Major depressive disorders with suicidal ideation. Followed by psychiatry closely Substance abuse including alcohol and cannabis, patient is counseled Peripheral vascular disease, status post amputation of the left toe and distal foot Previous history of right lower extremity DVT History of severe COPD Nicotine dependence Chronic hypoxic respiratory failure on home oxygen Plan: This is a pleasant 63 years old male who presents with multiple problems including GI bleed and dry thigh is an infection. Continue with antibiotics as per infectious disease recommendation. Keep monitoring hemoglobin although sustainable. Psychiatry of following the patient closely and patient currently does not have capacity to make decisions and he cannot leave AGAINST MEDICAL ADVICE. Order Sitter at bedside for safety. However patient does not want to leave right now. Discussed with the staff about this recommendation Labs and medication were reviewed.. Continue same treatment. Continue with symptomatic treatment. Resume home medication. Monitor lytes and vitals. DVT and GI prophylaxis. Further recommendations of the clinical course of the patient DVT prophylaxis: Subcutaneous heparin GI Prophylaxis: Pepcid Prognosis is guarded
[2018-11-29 12:10] LABS: Glucose,Whole Blood 83 mg/dL (75-99)
[2018-11-29 16:52] LABS: Glucose,Whole Blood 91 mg/dL (75-99)
[2018-11-29] MEDS ORDERED: VANCOMYCIN TROUGH DUE 1 EACH MISC MISCELLANE ONE (21:00)
[2018-11-30] MEDS: MIRTAZAPINE 15 MG TAB PO SCH ×2 (00:19→21:18)
[2018-11-30] MEDS: ATORVASTATIN 20 MG TAB PO SCH ×2 (00:19→21:18)
[2018-11-30] MEDS: DIAZEPAM 5 MG TAB PO SCH ×3 (00:20→21:18)
[2018-11-30] MEDS: HEPARIN SODIUM,PORCINE 5,000 UNIT/ML 1 ML VIAL SQ SCH ×3 (00:20→21:17)
[2018-11-30] MEDS: VANCOMYCIN 1,250 MG in SODIUM CHLORIDE 0.9% 250 ML IVPB SCH (00:26)
[2018-11-30] MEDS: D5-0.45% NACL WITH KCL 20MEQ/L 1,000 ML IV SCH ×3 (02:30→21:28)
--- NOTE | 2018-11-30 07:10 | P.PN ---
Subjective Principal diagnosis: Peripheral vascular disease with history of cellulitis and serosanguineouhe right distal thigh. Chief complaint is not able to obtain secondary to mental state. He's been on suicide precautions for the last 7 days. Appreciate psychiatric input. At this time, he is seemingly medically stable but he is wanting to leave the institution. We will await possible psychiatric commitment however. He is not allowed to leave AGAINST MEDICAL ADVICE at this time. Sitter is noted. Objective - Vital Signs Vital signs: Vital Signs Temp 98 F 11/29/18 17:00 Pulse 76 11/29/18 17:00 Resp 12 11/29/18 17:00 BP 125/76 11/29/18 17:00 Pulse Ox 94 L 11/29/18 17:00 Intake & Output 11/29/18 11/30/18 11/30/18 18:59 06:59 18:59 Other: Voiding Method Toilet # Voids 1 4 - Constitutional General appearance: Present: average body habitus - EENT Eyes: Absent: abnormal pupil - Neck Neck: Absent: lymphadenopathy - Respiratory Respiratory: bilateral: CTA - Cardiovascular Rhythm: regular Heart sounds: normal: S1, S2 Abnormal Heart Sounds: Absent: S3 Gallop - Gastrointestinal General gastrointestinal: Present: soft. Absent: tenderness - Psychiatric Psychiatric: Absent: intact judgment & insight - Labs CBC & Chem 7: 11/28/18 07:41 11/29/18 06:46 Labs: Abnormal Lab Results - Last 24 Hours (Table) 11/29/18 Range/Units 06:46 Creatinine 1.31 H (0.66-1.25) mg/dL Calcium 8.1 L (8.4-10.2) mg/dL Assessment and Plan (1) Leukocytosis Current Visit: Yes Status: Acute Code(s): D72.829 - ELEVATED WHITE BLOOD CELL COUNT, UNSPECIFIED SNOMED Code(s): 741458404 (2) MRSA (methicillin resistant staph aureus) culture positive Current Visit: Yes Status: Acute Code(s): Z22.322 - CARRIER OR SUSPECTED CARRIER OF METHICILLIN RESIS STAPH SNOMED Code(s): 843142201 (3) Soft tissue mass Current Visit: Yes Status: Acute Code(s): M79.89 - OTHER SPECIFIED SOFT TISSUE DISORDERS SNOMED Code(s): 516252792 (4) COPD (chronic obstructive pulmonary disease) Current Visit: No Status: Acute Code(s): J44.9 - CHRONIC OBSTRUCTIVE PULMONARY DISEASE, UNSPECIFIED SNOMED Code(s): 81210216 (5) Partial nontraumatic amputation of left foot Current Visit: No Status: Acute Code(s): Z89.432 - ACQUIRED ABSENCE OF LEFT FOOT SNOMED Code(s): 978894474 (6) Seroma Current Visit: No Status: Acute Code(s): MSM1894 - SNOMED Code(s): 321670271 (7) Acute depression Current Visit: Yes Status: Acute Code(s): F32.9 - MAJOR DEPRESSIVE DISORDER, SINGLE EPISODE, UNSPECIFIED SNOMED Code(s): 036652341 Plan: Await possible placement to psychiatric unit given his overall change in mental status. The patient is shows better communication at this time but has expressed the past concerned because of his foreign-body of the right lower extremity that was recently found to cause an infection. Prognosis is guarded secondary to his multiple comorbidities. DC when cleared by vascular surgery and cleared by psychiatry. Time with Patient: Less than 30
[2018-11-30] MEDS: METOPROLOL TARTRATE 25 MG TAB PO SCH (07:28)
[2018-11-30 07:31] LABS: Calcium 8.6 mg/dL (8.4-10.2); Potassium 4.4 mmol/L (3.5-5.1)
[2018-11-30] MEDS: COLCHICIN-PROBENECID 0.5-500MG 1 EACH TAB PO SCH (07:57)
[2018-11-30] MEDS: PANTOPRAZOLE 40 MG TABLET PO SCH ×2 (07:57→16:50)
[2018-11-30] MEDS: SERTRALINE 100 MG TAB PO SCH (07:58)
[2018-11-30] MEDS: ZINC SULFATE 220 MG CAP PO SCH (07:58)
[2018-11-30] MEDS: MAGNESIUM OXIDE 400 MG TAB PO SCH (07:58)
[2018-11-30] MEDS: NICOTINE 21MG/24HR PATCH TRANSDERM SCH (07:59)
--- NOTE | 2018-11-30 10:12 | P.PN ---
Subjective Progress Note Date: 11/30/18 Principal diagnosis: Status post removal foreign body. Patient is evaluated postoperatively. Clinically no significant changes have occurred. VAC is in place in both the right lower thigh wound as well as the left foot wound Surgically no change in therapy is planned. VAC to remain in place in both locations until wounds are nearly healed which is anticipated. No further recommendations forthcoming at this time. Objective - Vital Signs Vital signs: Vital Signs Temp 98.9 F 11/30/18 07:51 Pulse 95 11/30/18 07:51 Resp 15 11/30/18 07:51 BP 89/55 11/30/18 07:51 Pulse Ox 94 L 11/30/18 07:51 Intake & Output 11/29/18 11/30/18 11/30/18 18:59 06:59 18:59 Other: Voiding Method Toilet Toilet Toilet # Voids 1 4 - Labs CBC & Chem 7: 11/28/18 07:41 11/30/18 06:42 Labs: Abnormal Lab Results - Last 24 Hours (Table) 11/30/18 Range/Units 06:42 Carbon Dioxide 32 H (22-30) mmol/L Creatinine 1.33 H (0.66-1.25) mg/dL
--- NOTE | 2018-11-30 12:43 | P.PN ---
Subjective Progress Note Date: 11/30/18 Principal diagnosis: Status post right thigh abscess I&D and removal of foreign body Patient is very angry about requiring a sitter. He wishes to leave the hospital but has been unable to do so due to his suicide precautions. Objective - Vital Signs Vital signs: Vital Signs Temp 98.9 F 11/30/18 07:51 Pulse 95 11/30/18 07:51 Resp 15 11/30/18 07:51 BP 89/55 11/30/18 07:51 Pulse Ox 94 L 11/30/18 07:51 Intake & Output 11/29/18 11/30/18 11/30/18 18:59 06:59 18:59 Intake Total 400 Balance 400 Intake: IV 400 D5-0.45% NaCl with KCl 400 20Meq/l 1,000 ml @ 100 mls/hr IV .Q10H YASMIN Rx#: [id number] Other: Voiding Method Toilet Toilet Toilet # Voids 1 4 - Exam His wound is ana in nicely, however, on removing the packing there was some purulence at the distal aspect. I suspect is related to a difficulty packing the depths of the wound. - Labs CBC & Chem 7: 11/28/18 07:41 11/30/18 06:42 Labs: Abnormal Lab Results - Last 24 Hours (Table) 11/30/18 Range/Units 06:42 Carbon Dioxide 32 H (22-30) mmol/L Creatinine 1.33 H (0.66-1.25) mg/dL Assessment and Plan (1) Abscess of right thigh Current Visit: Yes Status: Acute Code(s): L02.415 - CUTANEOUS ABSCESS OF RIGHT LOWER LIMB SNOMED Code(s): 09002804819670904 Plan: We irrigated vigorously with half-strength peroxide and packed it deeply. Appreciate primary care input. Await disposition for discharge.
[2018-11-30 21:22] LABS: Glucose,Whole Blood 105 mg/dL (75-99)
[2018-11-30] MEDS: VANCOMYCIN 1,500 MG in SODIUM CHLORIDE 0.9% 250 ML IVPB SCH (21:22)
[2018-11-30] MEDS: HYDROcodone/APAP 10-325MG 1 EACH TAB PO PRN (21:22)
--- NOTE | 2018-11-30 22:12 | P.PN ---
Subjective Progress Note Date: 11/30/18 63-year-old male has multiple medical troubles including severe peripheral vascular disease and a history of gout. The patient has been following with the vascular surgeon as well as the wound healing Center regarding a nonhealing ulceration to his left foot. Due to gangrenous changes he did have amputation to the left great toe. An open ulceration continued and there was evidence of exposure of the first metatarsal. Local wound care was being utilized in the wound VAC was being attempted. The patient presented to the wound center where he has been receiving ongoing care, in August the patient however is evidence of extensive gangrenous change of the foot was sent to emergency center at admission through his primary care physician.At that time he was seen by vascular surgery and transmetatarsal amputation was performed with a potential conversion to a [id number] amputation if he did not respond well. He fortunately has been doing relatively well with the negative pressure therapy system being applied to the transmetatarsal amputation site. He did require 1 bony revision because of exposure to metatarsal head. They have been showing some improvement. Gen. the patient was starting to have some improvement but he then developed some significant swelling to his right leg distally related to the prior incision from his vascular bypass. Apparently he was seen in the o utpatient setting and aspiration was performed MRSA was isolated. He doesn't. He was placed on some oral antibiotic therapy but despite this the leg worsened became more tight warm erythematous and painful and he noticed that there was also evidence of some swelling to the more proximal aspect of his thigh at the more cephalad aspect of his bypass. Culture was noticed to have evidence of MRSA and vancomycin has been initiated he is quite uncomfortable. We discussed that his vascular surgeon will need to evaluate. 11/20/2018 the patient continues to feel poorly. He has now been evaluated by vascular surgery and there are plans for exploration of his graft given the marked abnormalities of the been seen. 11/23/2018 the patient is status post surgery where there is evidence of the significant infection to the distal aspect of the right thigh graft, foreign body was removed and cultures are showing evidence of staphylococcal infection as expected. Other than some pain at the site he is improving. 11/24/2018 patient feeling slightly better, however is trying to climb out of bed to get to the bathroom and yet he has not is was to be weightbearing on the right leg with recent surgical intervention. Unclear if his confusion or if he is just being stubborn. 11/30/2018 Patient's mental status has worsened. He is withdrawn and not wanting to eat. He simply wants to go to rehab. He relates there he'll eat and cooperate. It is in the wound VAC needs to be changed and the nurses assisted in this process. Objective - Vital Signs Vital signs: Vital Signs Temp 99.3 F 11/30/18 21:16 Pulse 94 11/30/18 21:16 Resp 16 11/30/18 21:16 BP 103/56 11/30/18 21:16 Pulse Ox 94 L 11/30/18 21:16 Intake & Output 11/30/18 11/30/18 12/01/18 06:59 18:59 06:59 Intake Total 400 Balance 400 Intake: IV 400 D5-0.45% NaCl with KCl 400 20Meq/l 1,000 ml @ 100 mls/hr IV .Q10H YASMIN Rx#: [id number] Other: Voiding Method Toilet Toilet # Voids 4 2 - Exam 63-year-old male quite uncomfortable HEENT: Anicteric conjunctiva are pink and moist nasal mucosa grossly intact without significant lesions, there is no thrush. Neck: The neck is supple without significant lymphadenopathy or thyromegaly. Lungs: Good bilateral air entry without significant crackles or wheezing. There is no significant bronchial sounds. There is no egophony or dullness. Heart: Regular rate and rhythm with an audible S1-S2, no S3 no S4. There is no significant murmur click or rub, PMI was nondisplaced. Abdomen: Positive bowel sounds soft and nontender without palpable masses or organomegaly. There was no guarding or rebound. Extremities: The upper extremities have no evidence of any distinct lesions. Left lower extremity has evidence of the transmetatarsal amputation site. The site has evidence of good granulation without significant erythema swelling or worsening tenderness. The right lower extremity however has the acute change but is now status post surgical debridement by vascular surgery no lymphadenopathy being seen into the right leg or groin. No other significant abnormal lymph nodes are seen. Neuro: Patient does arouse and communicate, is very withdrawn and simply wants to leave the hospital to go to the new setting. - Labs CBC & Chem 7: 11/28/18 07:41 11/30/18 06:42 Labs: Abnormal Lab Results - Last 24 Hours (Table) 11/30/18 11/30/18 Range/Units 06:42 21:20 Carbon Dioxide 32 H (22-30) mmol/L Creatinine 1.33 H (0.66-1.25) mg/dL POC Glucose (mg/dL) 105 H (75-99) mg/dL Laboratory Results WBC 12.7 k/uL (3.8-10.6) H 11/28/18 07:41 RBC 2.88 m/uL (4.30-5.90) L 11/28/18 07:41 Hgb 8.0 gm/dL (13.0-17.5) L 11/28/18 07:41 Hct 24.4 % (39.0-53.0) L 11/28/18 07:41 MCV 84.7 fL (80.0-100.0) 11/28/18 07:41 MCH 27.8 pg (25.0-35.0) 11/28/18 07:41 MCHC 32.8 g/dL (31.0-37.0) 11/28/18 07:41 RDW 16.8 % (11.5-15.5) H 11/28/18 07:41 Plt Count 413 k/uL (150-450) 11/28/18 07:41 Neutrophils % 70 % 11/26/18 05:22 Lymphocytes % 16 % 11/26/18 05:22 Monocytes % 6 % 11/26/18 05:22 Eosinophils % 7 % 11/26/18 05:22 Basophils % 0 % 11/26/18 05:22 Neutrophils # 6.8 k/uL (1.3-7.7) 11/26/18 05:22 Lymphocytes # 1.5 k/uL (1.0-4.8) 11/26/18 05:22 Monocytes # 0.6 k/uL (0-1.0) 11/26/18 05:22 Eosinophils # 0.7 k/uL (0-0.7) 11/26/18 05:22 Basophils # 0.0 k/uL (0-0.2) 11/26/18 05:22 Hypochromasia Slight 11/23/18 04:49 Anisocytosis Slight 11/28/18 07:41 PT 47.5 sec (9.0-12.0) H 11/22/18 18:59 INR 4.9 (<1.2) H 11/22/18 18:59 APTT 82.1 sec (22.0-30.0) H 11/22/18 18:59 Sodium 137 mmol/L (137-145) 11/30/18 06:42 Potassium 4.4 mmol/L (3.5-5.1) 11/30/18 06:42 Chloride 99 mmol/L (98-107) 11/30/18 06:42 Carbon Dioxide 32 mmol/L (22-30) H 11/30/18 06:42 Anion Gap 6 mmol/L 11/30/18 06:42 BUN 11 mg/dL (9-20) 11/30/18 06:42 Creatinine 1.33 mg/dL (0.66-1.25) H 11/30/18 06:42 Est GFR (CKD-EPI)AfAm 67 (>60 ml/min/1.73 sqM) 11/30/18 06:42 Est GFR (CKD-EPI)NonAf 58 (>60 ml/min/1.73 sqM) 11/30/18 06:42 Glucose 90 mg/dL (74-99) 11/30/18 06:42 POC Glucose (mg/dL) 105 mg/dL (75-99) H 11/30/18 21:20 POC Glu Sack Sorter ADDY Garcia, Estefani 11/30/18 21:20 Insulin Level 6.2 mIU/mL (3.0-25.0) 11/24/18 04:10 Calcium 8.6 mg/dL (8.4-10.2) 11/30/18 06:42 Magnesium 1.7 mg/dL (1.6-2.3) 11/26/18 05:22 Total Bilirubin 0.2 mg/dL (0.2-1.3) 11/28/18 07:41 AST 18 U/L (17-59) 11/28/18 07:41 ALT 15 U/L (21-72) L 11/28/18 07:41 Alkaline Phosphatase 103 U/L (38-126) 11/28/18 07:41 Total Protein 5.3 g/dL (6.3-8.2) L 11/28/18 07:41 Albumin 2.3 g/dL (3.5-5.0) L 11/28/18 07:41 TSH 3.090 mIU/L (0.465-4.680) 11/22/18 12:03 Stool Occult Blood Positive (Negative) 11/22/18 09:00 Vancomycin Trough 14.9 ug/mL 11/29/18 20:42 Insulin Antibody <0.4 U/mL (0.0-0.4) 11/24/18 04:10 C. difficile (EIA) Intrp Negative (Negative) 11/19/18 19:00 Blood Type O Positive 11/22/18 11:10 Blood Type Confirm O Positive 11/22/18 06:34 Blood Type Recheck No Previous Record 11/22/18 11:10 Bld Type Recheck Status CABO Indicated 11/22/18 11:10 Antibody Screen NEGATIVE 11/22/18 11:10 Crossmatch See Detail 11/22/18 11:10 Spec Expiration Date 11/25/2018 - 230911/22/18 11:10 Microbiology 11/22/18 12:03 Blood Blood Culture - Final No Growth after 144 hours 11/21/18 10:31 Leg - Right Anaerobic Culture - Final 11/21/18 10:31 Leg - Right Anaerobic Culture - Final 11/18/18 16:30 Blood Blood Culture - Final No Growth after 144 hours 11/21/18 10:31 Leg - Right Gram Stain - Final 11/21/18 10:31 Leg - Right Wound Culture - Final Presumptive MRSA 11/21/18 10:31 Leg - Right Gram Stain - Final 11/21/18 10:31 Leg - Right Wound Culture - Final Methicillin resist S. aureus Assessment and Plan (1) Leukocytosis Current Visit: Yes Status: Acute Code(s): D72.829 - ELEVATED WHITE BLOOD CELL COUNT, UNSPECIFIED SNOMED Code(s): 428920332 (2) MRSA (methicillin resistant staph aureus) culture positive Narrative/Plan: 63-year-old male who has history of severe peripheral vascular disease having increasing difficulties as of late. He developed a gangrenous changes to the left foot in a transmetatarsal amputation was performed. There is evidence of some bony exposure of the metatarsal head and it appears that her further resection of the f fourth metatarsal head occurred in with the negative pressure therapy system has been showing some steady improvement. The patient were to present to the ER couple days ago with increasing pain and tenderness on the distal aspect of the right leg in conjunction with an area of prior vascular bypass. Aspiration was performed and no evidence of MRSA as per nicely. Vancomycin therapy has been initiated. Vascular surgery consultation is requested. There is concerns to infection of his graft. Is somewhat unusual that there is difficulty at 2 different sites along the graft that are not contiguous. However given his history there is great concern that there could be infection of his graft. Blood cultures are in process. Pain control is being addressed. Patient should limit his ambulation. He is without significant high-grade fevers, he did have leukocytosis at admission that is already improving with hydration and antibiotic therapy. Local care to the transmetatarsal amputation site is requested. 11/20/2018 the patient has been evaluated by his vascular surgeon and there is no marked abnormalities as noted. Plans for surgical exploration of that graft are being made. Antibiotic therapy continues. The patient has some diarrhea with C. diff is comeback is negative. Imodium can be utilized if he is having ongoing diarrhea. Pain control seems to be somewhat adequate. Continue local wound care to the left transmetatarsal amputation site 11/23/2018 the patient started to have some improvement. The surgical site on the right thigh just has some scant serosanguineous drainage. The tr ansmetatarsal amputation site left foot is stable. We'll plan on continuing the antibiotic therapy with vancomycin for treatment of the abscess to the right thigh as well as to the left transmetatarsal amputation site. Appetites improving, no diarrhea C. diff that was checked was negative. 11/24/2018 patient is stable, MRSA infection to the right thigh seems to be improving. Drainage is improving. Lesions are seen. Is being followed by his vascular surgeon. No further surgical interventions are noted at this point in time. We'll need to continue intravenous antibiotic therapy was transferred to the rehab facility. IV access requested. 11/30/2018 the patient is medically improved. Is being readied for transfer to the rehab facility. IV access is being placed. Antibiotic therapy is with vancomycin for the MRSA infection of the transmetatarsal site. The nurses assisted in placing the wound VAC dressing, given the location a foam bridge it is designed and is much more effective and allows an excellent seal. Apparently will be discharged to rehab facility tomorrow. Current Visit: Yes Status: Acute Code(s): Z22.322 - CARRIER OR SUSPECTED CARRIER OF METHICILLIN RESIS STAPH SNOMED Code(s): 182294512 (3) Partial nontraumatic amputation of left foot Current Visit: No Status: Acute Code(s): Z89.432 - ACQUIRED ABSENCE OF LEFT FOOT SNOMED Code(s): 805564450
[2018-12-01] MEDS: HYDROcodone/APAP 10-325MG 1 EACH TAB PO PRN ×4 (06:10→22:25)
[2018-12-01] MEDS: COLCHICIN-PROBENECID 0.5-500MG 1 EACH TAB PO SCH (09:08)
[2018-12-01] MEDS: SERTRALINE 100 MG TAB PO SCH (09:09)
[2018-12-01] MEDS: MAGNESIUM OXIDE 400 MG TAB PO SCH (09:09)
[2018-12-01] MEDS: PANTOPRAZOLE 40 MG TABLET PO SCH ×2 (09:09→18:01)
[2018-12-01] MEDS: DIAZEPAM 5 MG TAB PO SCH ×2 (09:09→20:27)
[2018-12-01] MEDS: GABAPENTIN 300 MG CAP PO PRN (09:09)
[2018-12-01] MEDS: ZINC SULFATE 220 MG CAP PO SCH (09:09)
[2018-12-01] MEDS: HEPARIN SODIUM,PORCINE 5,000 UNIT/ML 1 ML VIAL SQ SCH ×2 (09:09→20:27)
[2018-12-01] MEDS: METOPROLOL TARTRATE 25 MG TAB PO SCH (09:09)
[2018-12-01] MEDS: NICOTINE 21MG/24HR PATCH TRANSDERM SCH (09:10)
[2018-12-01] MEDS: D5-0.45% NACL WITH KCL 20MEQ/L 1,000 ML IV SCH ×2 (12:22→17:56)
--- NOTE | 2018-12-01 14:07 | P.PN ---
Subjective Principal diagnosis: Peripheral vascular disease with history of cellulitis and serosanguineouhe right distal thigh. Chief complaint is not able to obtain secondary to mental state. He's been on suicide precautions for the last 7 days. Appreciate psychiatric input. At this time, he is seemingly medically stable but he is wanting to leave the institution. We will await possible psychiatric commitment however. He is not allowed to leave AGAINST MEDICAL ADVICE at this time. Sitter is noted. He seems clinically improved today. Hopefully psychiatry can clear him of his suicide precautions. We had a long discussion today regarding discharge planning. Objective - Vital Signs Vital signs: Vital Signs Temp 98.1 F 12/01/18 07:16 Pulse 89 12/01/18 07:16 Resp 15 12/01/18 07:16 BP 98/53 12/01/18 07:16 Pulse Ox 93 L 12/01/18 07:16 Intake & Output 11/30/18 12/01/18 12/01/18 18:59 06:59 18:59 Intake Total 400 480 Output Total 400 Balance 400 80 Intake: IV 400 D5-0.45% NaCl with KCl 400 20Meq/l 1,000 ml @ 100 mls/hr IV .Q10H YASMIN Rx#: [id number] Oral 480 Output: Urine 400 Other: Voiding Method Toilet Toilet Toilet # Voids 2 1 - Constitutional General appearance: Present: average body habitus - EENT Eyes: Absent: abnormal pupil - Neck Neck: Absent: lymphadenopathy - Respiratory Respiratory: bilateral: diminished - Cardiovascular Rhythm: regular Heart sounds: normal: S1, S2 Abnormal Heart Sounds: Absent: S3 Gallop - Integumentary Integumentary: Present: cellulitis - Labs CBC & Chem 7: 11/28/18 07:41 11/30/18 06:42 Labs: Abnormal Lab Results - Last 24 Hours (Table) 11/30/18 Range/Units 21:20 POC Glucose (mg/dL) 105 H (75-99) mg/dL Assessment and Plan (1) Leukocytosis Current Visit: Yes Status: Acute Code(s): D72.829 - ELEVATED WHITE BLOOD CELL COUNT, UNSPECIFIED SNOMED Code(s): 267950144 (2) MRSA (methicillin resistant staph aureus) culture positive Current Visit: Yes Status: Acute Code(s): Z22.322 - CARRIER OR SUSPECTED CARRIER OF METHICILLIN RESIS STAPH SNOMED Code(s): 735573056 (3) Soft tissue mass Current Visit: Yes Status: Acute Code(s): M79.89 - OTHER SPECIFIED SOFT TISSUE DISORDERS SNOMED Code(s): 067042991 (4) COPD (chronic obstructive pulmonary disease) Current Visit: No Status: Acute Code(s): J44.9 - CHRONIC OBSTRUCTIVE PULMONARY DISEASE, UNSPECIFIED SNOMED Code(s): 22163260 (5) Partial nontraumatic amputation of left foot Current Visit: No Status: Acute Code(s): Z89.432 - ACQUIRED ABSENCE OF LEFT FOOT SNOMED Code(s): 058727951 (6) Seroma Current Visit: No Status: Acute Code(s): HVG6941 - SNOMED Code(s): 333992890 (7) Acute depression Current Visit: Yes Status: Acute Code(s): F32.9 - MAJOR DEPRESSIVE DISORDER, SINGLE EPISODE, UNSPECIFIED SNOMED Code(s): 756551056 Plan: Discharge planning discussed at length. He still has been petitioned for appropriate placement given his suicidal behavior last week. We will assess psychiatry to clear this before transferring him appropriately. ECF seems more likely for his safety but he does have appropriate family support. We'll continue to follow. See orders otherwise.
--- NOTE | 2018-12-01 14:44 | P.PN ---
Subjective Progress Note Date: 12/01/18 Principal diagnosis: Status post I&D of abscess medial right thigh with removal of foreign body Patient seems to feel a bit better today. Objective - Vital Signs Vital signs: Vital Signs Temp 97.4 F L 12/01/18 13:33 Pulse 73 12/01/18 13:33 Resp 16 12/01/18 13:33 BP 93/63 12/01/18 13:33 Pulse Ox 90 L 12/01/18 13:33 Intake & Output 11/30/18 12/01/18 12/01/18 18:59 06:59 18:59 Intake Total 400 480 Output Total 400 Balance 400 80 Intake: IV 400 D5-0.45% NaCl with KCl 400 20Meq/l 1,000 ml @ 100 mls/hr IV .Q10H YASMIN Rx#: [id number] Oral 480 Output: Urine 400 Other: Voiding Method Toilet Toilet Toilet # Voids 2 1 1 - Exam The open wound on the medial right thigh distally continues to shrink in size. There is fairly minimal purulence on the dressings as long as we continue to pack it deeply and continue with half-strength peroxide and saline irrigants. - Labs CBC & Chem 7: 11/28/18 07:41 11/30/18 06:42 Labs: Abnormal Lab Results - Last 24 Hours (Table) 11/30/18 Range/Units 21:20 POC Glucose (mg/dL) 105 H (75-99) mg/dL Assessment and Plan (1) Abscess of right thigh Current Visit: Yes Status: Acute Code(s): L02.415 - CUTANEOUS ABSCESS OF RIGHT LOWER LIMB SNOMED Code(s): 65685521040471651 Plan: We again did his dressing change today and irrigated the wound with half- strength peroxide. We packed it deeply with moist Kerlix.
[2018-12-01] MEDS: MIRTAZAPINE 15 MG TAB PO SCH (20:27)
[2018-12-01] MEDS: VANCOMYCIN 1,500 MG in SODIUM CHLORIDE 0.9% 250 ML IVPB SCH (20:27)
[2018-12-01] MEDS: ATORVASTATIN 20 MG TAB PO SCH (20:27)
[2018-12-01 21:52] LABS: Glucose,Whole Blood 87 mg/dL (75-99)
--- NOTE | 2018-12-01 23:06 | P.PN ---
Subjective Progress Note Date: 12/01/18 63-year-old male has multiple medical troubles including severe peripheral vascular disease and a history of gout. The patient has been following with the vascular surgeon as well as the wound healing Center regarding a nonhealing ulceration to his left foot. Due to gangrenous changes he did have amputation to the left great toe. An open ulceration continued and there was evidence of exposure of the first metatarsal. Local wound care was being utilized in the wound VAC was being attempted. The patient presented to the wound center where he has been receiving ongoing care, in August the patient however is evidence of extensive gangrenous change of the foot was sent to emergency center at admission through his primary care physician.At that time he was seen by vascular surgery and transmetatarsal amputation was performed with a potential conversion to a [id number] amputation if he did not respond well. He fortunately has been doing relatively well with the negative pressure therapy system being applied to the transmetatarsal amputation site. He did require 1 bony revision because of exposure to metatarsal head. They have been showing some improvement. Gen. the patient was starting to have some improvement but he then developed some significant swelling to his right leg distally related to the prior incision from his vascular bypass. Apparently he was seen in the o utpatient setting and aspiration was performed MRSA was isolated. He doesn't. He was placed on some oral antibiotic therapy but despite this the leg worsened became more tight warm erythematous and painful and he noticed that there was also evidence of some swelling to the more proximal aspect of his thigh at the more cephalad aspect of his bypass. Culture was noticed to have evidence of MRSA and vancomycin has been initiated he is quite uncomfortable. We discussed that his vascular surgeon will need to evaluate. 11/20/2018 the patient continues to feel poorly. He has now been evaluated by vascular surgery and there are plans for exploration of his graft given the marked abnormalities of the been seen. 11/23/2018 the patient is status post surgery where there is evidence of the significant infection to the distal aspect of the right thigh graft, foreign body was removed and cultures are showing evidence of staphylococcal infection as expected. Other than some pain at the site he is improving. 11/24/2018 patient feeling slightly better, however is trying to climb out of bed to get to the bathroom and yet he has not is was to be weightbearing on the right leg with recent surgical intervention. Unclear if his confusion or if he is just being stubborn. 11/30/2018 Patient's mental status has worsened. He is withdrawn and not wanting to eat. He simply wants to go to rehab. He relates there he'll eat and cooperate. It is in the wound VAC needs to be changed and the nurses assisted in this process 12/01/2018 patient is feeling slightly better today. Slightly less withdrawn. He has improved his oral intake somewhat. Pain is well controlled. Except with the dressing change to the abscess of the right leg. Wound VAC seems to be malfunctioning. Objective - Vital Signs Vital signs: Vital Signs Temp 97.5 F L 12/01/18 19:42 Pulse 82 12/01/18 19:42 Resp 17 12/01/18 19:42 BP 102/58 12/01/18 19:42 Pulse Ox 95 12/01/18 19:42 Intake & Output 12/01/18 12/01/18 12/02/18 06:59 18:59 06:59 Intake Total 480 Output Total 400 400 Balance 80 -400 Weight 82.8 kg Intake: Oral 480 Output: Urine 400 400 Other: Voiding Method Toilet Toilet Toilet Urinal # Voids 1 1 0 - Exam 63-year-old male quite uncomfortable HEENT: Anicteric conjunctiva are pink and moist nasal mucosa grossly intact without significant lesions, there is no thrush. Neck: The neck is supple without significant lymphadenopathy or thyromegaly. Lungs: Good bilateral air entry without significant crackles or wheezing. There is no significant bronchial sounds. There is no egophony or dullness. Heart: Regular rate and rhythm with an audible S1-S2, no S3 no S4. There is no significant murmur click or rub, PMI was nondisplaced. Abdomen: Positive bowel sounds soft and nontender without palpable masses or organomegaly. There was no guarding or rebound. Extremities: The upper extremities have no evidence of any distinct lesions. Left lower extremity has evidence of the transmetatarsal amputation site. The site has evidence of good granulation without significant erythema swelling or worsening tenderness. The right lower extremity however has the acute change but is now status post surgical debridement by vascular surgery no lymphadenopathy being seen into the right leg or groin. No other significant abnormal lymph nodes are seen. Neuro: Mentation is much improved today. Patient is an active conversation with an observer as I enter the room. He is comfortable and looks forward to transition to the extended care facility. - Labs CBC & Chem 7: 11/28/18 07:41 11/30/18 06:42 Labs: Laboratory Results WBC 12.7 k/uL (3.8-10.6) H 11/28/18 07:41 RBC 2.88 m/uL (4.30-5.90) L 11/28/18 07:41 Hgb 8.0 gm/dL (13.0-17.5) L 11/28/18 07:41 Hct 24.4 % (39.0-53.0) L 11/28/18 07:41 MCV 84.7 fL (80.0-100.0) 11/28/18 07:41 MCH 27.8 pg (25.0-35.0) 11/28/18 07:41 MCHC 32.8 g/dL (31.0-37.0) 11/28/18 07:41 RDW 16.8 % (11.5-15.5) H 11/28/18 07:41 Plt Count 413 k/uL (150-450) 11/28/18 07:41 Neutrophils % 70 % 11/26/18 05:22 Lymphocytes % 16 % 11/26/18 05:22 Monocytes % 6 % 11/26/18 05:22 Eosinophils % 7 % 11/26/18 05:22 Basophils % 0 % 11/26/18 05:22 Neutrophils # 6.8 k/uL (1.3-7.7) 11/26/18 05:22 Lymphocytes # 1.5 k/uL (1.0-4.8) 11/26/18 05:22 Monocytes # 0.6 k/uL (0-1.0) 11/26/18 05:22 Eosinophils # 0.7 k/uL (0-0.7) 11/26/18 05:22 Basophils # 0.0 k/uL (0-0.2) 11/26/18 05:22 Hypochromasia Slight 11/23/18 04:49 Anisocytosis Slight 11/28/18 07:41 PT 47.5 sec (9.0-12.0) H 11/22/18 18:59 INR 4.9 (<1.2) H 11/22/18 18:59 APTT 82.1 sec (22.0-30.0) H 11/22/18 18:59 Sodium 137 mmol/L (137-145) 11/30/18 06:42 Potassium 4.4 mmol/L (3.5-5.1) 11/30/18 06:42 Chloride 99 mmol/L (98-107) 11/30/18 06:42 Carbon Dioxide 32 mmol/L (22-30) H 11/30/18 06:42 Anion Gap 6 mmol/L 11/30/18 06:42 BUN 11 mg/dL (9-20) 11/30/18 06:42 Creatinine 1.33 mg/dL (0.66-1.25) H 11/30/18 06:42 Est GFR (CKD-EPI)AfAm 67 (>60 ml/min/1.73 sqM) 11/30/18 06:42 Est GFR (CKD-EPI)NonAf 58 (>60 ml/min/1.73 sqM) 11/30/18 06:42 Glucose 90 mg/dL (74-99) 11/30/18 06:42 POC Glucose (mg/dL) 87 mg/dL (75-99) 12/01/18 21:48 POC Glu Astrobiologist ADDY Han Reg 12/01/18 21:48 Insulin Level 6.2 mIU/mL (3.0-25.0) 11/24/18 04:10 Calcium 8.6 mg/dL (8.4-10.2) 11/30/18 06:42 Magnesium 1.7 mg/dL (1.6-2.3) 11/26/18 05:22 Total Bilirubin 0.2 mg/dL (0.2-1.3) 11/28/18 07:41 AST 18 U/L (17-59) 11/28/18 07:41 ALT 15 U/L (21-72) L 11/28/18 07:41 Alkaline Phosphatase 103 U/L (38-126) 11/28/18 07:41 Total Protein 5.3 g/dL (6.3-8.2) L 11/28/18 07:41 Albumin 2.3 g/dL (3.5-5.0) L 11/28/18 07:41 TSH 3.090 mIU/L (0.465-4.680) 11/22/18 12:03 Stool Occult Blood Positive (Negative) 11/22/18 09:00 Vancomycin Trough 14.9 ug/mL 11/29/18 20:42 Insulin Antibody <0.4 U/mL (0.0-0.4) 11/24/18 04:10 C. difficile (EIA) Intrp Negative (Negative) 11/19/18 19:00 Blood Type O Positive 11/22/18 11:10 Blood Type Confirm O Positive 11/22/18 06:34 Blood Type Recheck No Previous Record 11/22/18 11:10 Bld Type Recheck Status CABO Indicated 11/22/18 11:10 Antibody Screen NEGATIVE 11/22/18 11:10 Crossmatch See Detail 11/22/18 11:10 Spec Expiration Date 11/25/2018 - 2310 11/22/18 11:10 Microbiology 11/22/18 12:03 Blood Blood Culture - Final No Growth after 144 hours 11/21/18 10:31 Leg - Right Anaerobic Culture - Final 11/21/18 10:31 Leg - Right Anaerobic Culture - Final 11/18/18 16:30 Blood Blood Culture - Final No Growth after 144 hours 11/21/18 10:31 Leg - Right Gram Stain - Final 11/21/18 10:31 Leg - Right Wound Culture - Final Presumptive MRSA 11/21/18 10:31 Leg - Right Gram Stain - Final 11/21/18 10:31 Leg - Right Wound Culture - Final Methicillin resist S. aureus Assessment and Plan (1) Leukocytosis Current Visit: Yes Status: Acute Code(s): D72.829 - ELEVATED WHITE BLOOD CELL COUNT, UNSPECIFIED SNOMED Code(s): 833255565 (2) MRSA (methicillin resistant staph aureus) culture positive Narrative/Plan: 63-year-old male who has history of severe peripheral vascular disease having increasing difficulties as of late. He developed a gangrenous changes to the left foot in a transmetatarsal amputation was performed. There is evidence of some bony exposure of the metatarsal head and it appears that her further resection of the f fourth metatarsal head occurred in with the negative pressure therapy system has been showing some steady improvement. The patient were to pr esent to the ER couple days ago with increasing pain and tenderness on the distal aspect of the right leg in conjunction with an area of prior vascular bypass. Aspiration was performed and no evidence of MRSA as per nicely. Vancomycin therapy has been initiated. Vascular surgery consultation is r equested. There is concerns to infection of his graft. Is somewhat unusual that there is difficulty at 2 different sites along the graft that are not contiguous. However given his history there is great concern that there could be infection of his graft. Blood cultures are in process. Pain control is being addressed. Patient should limit his ambulation. He is without significant high-grade fevers, he did have leukocytosis at admission that is already improving with hydration and antibiotic therapy. Local care to the transmetatarsal amputation site is requested. 11/20/2018 the patient has been evaluated by his vascular surgeon and there is no marked abnormalities as noted. Plans for surgical exploration of that graft are being made. Antibiotic therapy continues. The patient has some diarrhea with C. diff is comeback is negative. Imodium can be utilized if he is having ongoing diarrhea. Pain control seems to be somewhat adequate. Continue local wound care to the left transmetatarsal amputation site 11/23/2018 the patient started to have some improvement. The surgical site on the right thigh just has some scant serosanguineous drainage. The transmetatarsal amputation site left foot is stable. We'll plan on continuing the antibiotic therapy with vancomycin for treatment of the abscess to the right thigh as well as to the left transmetatarsal amputation site. Appetites improving, no diarrhea C. diff that was checked was negative. 11/24/2018 patient is stable, MRSA infection to the right thigh seems to be improving. Drainage is improving. Lesions are seen. Is being followed by his vascular surgeon. No further surgical interventions are noted at this point in time. We'll need to continue intravenous antibiotic therapy was transferred to the rehab facility. IV access requested. 11/30/2018 the patient is medically improved. Is being readied for transfer to the rehab facility. IV access is being placed. Antibiotic therapy is with vancomycin for the MRSA infection of the transmetatarsal site. The nurses assisted in placing the wound VAC dressing, given the location a foam bridge it is designed and is much more effective and allows an excellent seal. Apparently will be discharged to rehab facility tomorrow. December 01 2018 the patient has had some improvement in his status. He is awake alert and interactive. Looks forward to transition to the extended care facility. IVs in place to receive his vancomycin for the next many weeks. Follow wound healing center. The abscess to the right thigh and packed by the surgeon today. The woundvac appears to be malfunctioning and nursing staff will change the vac Current Visit: Yes Status: Acute Code(s): Z22.322 - CARRIER OR SUSPECTED CARRIER OF METHICILLIN RESIS STAPH SNOMED Code(s): 468997396 (3) Partial nontraumatic amputation of left foot Current Visit: No Status: Acute Code(s): Z89.432 - ACQUIRED ABSENCE OF LEFT FOOT SNOMED Code(s): 300441938
[2018-12-02] MEDS: HYDROcodone/APAP 10-325MG 1 EACH TAB PO PRN ×3 (02:18→19:18)
[2018-12-02] MEDS: D5-0.45% NACL WITH KCL 20MEQ/L 1,000 ML IV SCH ×2 (05:28→14:47)
[2018-12-02 07:18] LABS: Glucose,Whole Blood 91 mg/dL (75-99)
--- NOTE | 2018-12-02 08:36 | P.PN ---
Subjective Progress Note Date: 12/02/18 Pt s/e. feeling better today No acute distress resting comfortably No respiratory distress Heart regular Abdomen soft Left lower extremity wound VAC in place with good seal, changed yesterday Continue local wound care and daily dressing changes to the right thigh per Dr. Patel. L TMA wound with good granulation tissue. At some point will need revision d/t some bone. No urgency, may be done as outpatient VAC change every 3 days Continue antibiotics DC planning. Follow up with Dr Morel in 10-14 days. Objective - Vital Signs Vital signs: Vital Signs Temp 97.6 F 12/02/18 08:28 Pulse 71 12/02/18 08:28 Resp 16 12/02/18 08:28 BP 120/59 12/02/18 08:28 Pulse Ox 94 L 12/02/18 02:15 Intake & Output 12/01/18 12/02/18 12/02/18 18:59 06:59 18:59 Intake Total 1650 Output Total 400 Balance -400 1650 Weight 82.8 kg Intake: Intake, IV Titration 1500 Amount D5-0.45% NaCl with KCl 1000 20Meq/l 1,000 ml @ 100 mls/hr IV .Q10H YASMIN Rx#: [id number] Vancomycin 1,500 mg In 500 Sodium Chloride 0.9% 250 ml @ 125 mls/hr IVPB Q24H YASMIN Rx#:[id number] Oral 150 Output: Urine 400 Other: Voiding Method Toilet Toilet Urinal # Voids 1 3 - Labs CBC & Chem 7: 11/28/18 07:41 12/02/18 06:35 Labs: Abnormal Lab Results - Last 24 Hours (Table) 12/02/18 Range/Units 06:35 Creatinine 1.43 H (0.66-1.25) mg/dL
[2018-12-02] MEDS: DIAZEPAM 5 MG TAB PO SCH (08:41)
[2018-12-02] MEDS: PANTOPRAZOLE 40 MG TABLET PO SCH ×2 (08:41→17:01)
[2018-12-02] MEDS: METOPROLOL TARTRATE 25 MG TAB PO SCH (08:41)
[2018-12-02] MEDS: MAGNESIUM OXIDE 400 MG TAB PO SCH (08:41)
[2018-12-02] MEDS: SERTRALINE 100 MG TAB PO SCH (08:42)
[2018-12-02] MEDS: NICOTINE 21MG/24HR PATCH TRANSDERM SCH (08:42)
[2018-12-02] MEDS: HEPARIN SODIUM,PORCINE 5,000 UNIT/ML 1 ML VIAL SQ SCH ×2 (08:42→20:52)
[2018-12-02] MEDS: COLCHICIN-PROBENECID 0.5-500MG 1 EACH TAB PO SCH (08:43)
[2018-12-02] MEDS: ZINC SULFATE 220 MG CAP PO SCH (08:43)
--- NOTE | 2018-12-02 09:56 | P.PN ---
Progress Note - Text Progress Note Date: 12/02/18 Interval History: Psychiatry seen patient today for follow-up of depression and suicidal ideatio ns. Patient has been taking his medications Zoloft 100 mg daily Remeron 15 mg nightly and also has been taking Valium along with opioid analgesics for pain and he continues with a one-to-one sitter for safety. Patient was noted by his nurse to be having an improved affect and has been more cooperative with treatment and taking his medications. Nurse denies any suicidal ideations or statements and denies any behavioral problems however nurse does state that patient has been confused and does not know what year it is and has been sleepy. Patient was seen at the bedside by hand sign writer and patient appeared to be somewhat lethargic however has an improved affect. Patient states that his mood has been gradually improving and he denies any suicidal ideations at this time or homicidal ideations. He denies any auditory visual hallucinations. Patient is not endorsing any paranoia or any delusions. Patient denies any side effects on the medications. Patient appeared to have poor attention span and drifted off several times during the conversation. Patient was alert and oriented 2 and did not know what today's date was and thought the year was 1998. Patient did speak about wanting to go to rehab and the condition of his leg and the need for antibiotics. Mental Status Exam: General Appearance: Patient appears to be older than stated age is lethargic, directable, and cooperative. Patient has marginal hygiene and grooming and is lying in the bed in hospital gown. Patient has poor eye contact and poor attention span. Behavior: Patient is lying in the bed without any agitated behavior. Speech: Patient's speech is fluent and nonpressured. Soft tone Mood/Affect: Mood is improving, affect is congruent and has a brighter affect. Suicidality/Homicidality: Patient denies having any suicidal or homicidal ideation intent or plan. Perceptions: Patient denies any auditory or visual hallucinations. Though content/process: There is no evidence of any delusional thought content a nd thought process is linear and goal-directed. Memory and concentration: AOX2, thought that it was November 1998. Patient knew who the president was however could not spell "world" backwards and had difficulty with his attention span. Judgment and insight: fair, improving Assessment Delirium likely secondary to multiple etiologies including medications and toxic metabolic. Depressive disorder unspecified Plan: -At this time patient appears to have poor attention span and is confused and does not know the date and appears to be lethargic however does not have any behavioral problems and is directable and taking his medications. Is likely the patient does have delirium at this time likely hypoactive. -Medications: Decrease Valium to 5 mg daily for tomorrow and then discontinue afterwards. Discontinued Benadryl as it could be contributing to delirium. We'll continue Zoloft 100 mg daily for mood. We'll continue Remeron 15 mg for insomnia and mood. Please attempt to limit sedatives and opioid analgesics as this could be contributing to patient's mental status. -Delirium precautions recommended with patient including - avoiding use of narcotics and [employer] sedatives, limit anticholinergic medications when possible, frequent re-orientation, minimize use of restraints, open window shades during the day and close them at night -Discontinue 1:1 sitter for safety -Cannot leave AMA at this time. Patient will need a petition and certification if attempting to leave AMA. -Will continue to follow along -Once patient's mental status has improved patient will likely be able to procee d to go on to rehab or extended care facility.
[2018-12-02 11:44] LABS: Glucose,Whole Blood 77 mg/dL (75-99)
--- NOTE | 2018-12-02 14:27 | P.PN ---
Subjective Principal diagnosis: Peripheral vascular disease with history of cellulitis and serosanguineouhe right distal thigh. Chief complaint is not able to obtain secondary to mental state. He's been on suicide precautions for the last 7 days. Appreciate psychiatric input. At this time, he is seemingly medically stable but he is wanting to leave the institution. We will await possible psychiatric commitment however. He is not allowed to leave AGAINST MEDICAL ADVICE at this time. Sitter is noted. He seems clinically improved today. Hopefully psychiatry can clear him of his suicide precautions. We had a long discussion today regarding discharge planning. 12/02 We are still awaiting discharge planning element of versus ECF. Psychiatry is pending for clearance. He does not seem at all emotionally disturbed this morning. No voiding difficulties otherwise stated. No significant nausea, vomiting or diarrhea stated. Objective - Vital Signs Vital signs: Vital Signs Temp 97.6 F 12/02/18 08:28 Pulse 71 12/02/18 08:28 Resp 16 12/02/18 08:28 BP 120/59 12/02/18 08:28 Pulse Ox 92 L 12/02/18 10:46 Intake & Output 12/01/18 12/02/18 12/02/18 18:59 06:59 18:59 Intake Total 1650 Output Total 400 Balance -400 1650 Weight 82.8 kg Intake: Intake, IV Titration 1500 Amount D5-0.45% NaCl with KCl 1000 20Meq/l 1,000 ml @ 100 mls/hr IV .Q10H YASMIN Rx#: [id number] Vancomycin 1,500 mg In 500 Sodium Chloride 0.9% 250 ml @ 125 mls/hr IVPB Q24H YASMIN Rx#:[id number] Oral 150 Output: Urine 400 Other: Voiding Method Toilet Toilet Toilet Urinal Urinal # Voids 1 3 2 - Constitutional General appearance: Present: average body habitus - EENT Eyes: Absent: abnormal pupil - Respiratory Respiratory: bilateral: CTA - Cardiovascular Rhythm: regular Heart sounds: normal: S1, S2 Abnormal Heart Sounds: Absent: S3 Gallop - Gastrointestinal General gastrointestinal: Present: soft. Absent: tenderness - Integumentary Integumentary: Present: cellulitis - Labs CBC & Chem 7: 11/28/18 07:41 12/02/18 06:35 Labs: Abnormal Lab Results - Last 24 Hours (Table) 12/02/18 Range/Units 06:35 Creatinine 1.43 H (0.66-1.25) mg/dL Assessment and Plan (1) Leukocytosis Current Visit: Yes Status: Acute Code(s): D72.829 - ELEVATED WHITE BLOOD CELL COUNT, UNSPECIFIED SNOMED Code(s): 756583483 (2) MRSA (methicillin resistant staph aureus) culture positive Current Visit: Yes Status: Acute Code(s): Z22.322 - CARRIER OR SUSPECTED CA RRIER OF METHICILLIN RESIS STAPH SNOMED Code(s): 649516711 (3) Soft tissue mass Current Visit: Yes Status: Acute Code(s): M79.89 - OTHER SPECIFIED SOFT TISSUE DISORDERS SNOMED Code(s): 789566345 (4) COPD (chronic obstructive pulmonary disease) Current Visit: No Status: Acute Code(s): J44.9 - CHRONIC OBSTRUCTIVE PULMONARY DISEASE, UNSPECIFIED SNOMED Code(s): 75800286 (5) Partial nontraumatic amputation of left foot Current Visit: No Status: Acute Code(s): Z89.432 - ACQUIRED ABSENCE OF LEFT FOOT SNOMED Code(s): 595156519 (6) Seroma Current Visit: No Status: Acute Code(s): EVS8822 - SNOMED Code(s): 125340524 (7) Acute depression Current Visit: Yes Status: Acute Code(s): F32.9 - MAJOR DEPRESSIVE DISORDER, SINGLE EPISODE, UNSPECIFIED SNOMED Code(s): 479289148 Plan: Essentially awaiting discharge planning element. The patient seems to be more mentally stable but is currently under suicide precautions. We will continue to follow closely. His preference is to go to [facility]. Time with Patient: Greater than 30
[2018-12-02 16:38] LABS: Glucose,Whole Blood 109 mg/dL (75-99)
[2018-12-02 20:42] LABS: Glucose,Whole Blood 90 mg/dL (75-99)
[2018-12-02] MEDS: MIRTAZAPINE 15 MG TAB PO SCH (20:52)
[2018-12-02] MEDS: ATORVASTATIN 20 MG TAB PO SCH (20:52)
[2018-12-02] MEDS: VANCOMYCIN 1,500 MG in SODIUM CHLORIDE 0.9% 250 ML IVPB SCH (20:56)
--- NOTE | 2018-12-02 22:02 | P.PN ---
Subjective Progress Note Date: 12/02/18 63-year-old male has multiple medical troubles including severe peripheral vascular disease and a history of gout. The patient has been following with the vascular surgeon as well as the wound healing Center regarding a nonhealing ulceration to his left foot. Due to gangrenous changes he did have amputation to the left great toe. An open ulceration continued and there was evidence of exposure of the first metatarsal. Local wound care was being utilized in the wound VAC was being attempted. The patient presented to the wound center where he has been receiving ongoing care, in August the patient however is evidence of extensive gangrenous change of the foot was sent to emergency center at admission through his primary care physician.At that time he was seen by vascular surgery and transmetatarsal amputation was performed with a potential conversion to a [id number] amputation if he did not respond well. He fortunately has been doing relatively well with the negative pressure therapy system being applied to the transmetatarsal amputation site. He did require 1 bony revision because of exposure to metatarsal head. They have been showing some improvement. Gen. the patient was starting to have some improvement but he then developed some significant swelling to his right leg distally related to the prior incision from his vascular bypass. Apparently he was seen in the o utpatient setting and aspiration was performed MRSA was isolated. He doesn't. He was placed on some oral antibiotic therapy but despite this the leg worsened became more tight warm erythematous and painful and he noticed that there was also evidence of some swelling to the more proximal aspect of his thigh at the more cephalad aspect of his bypass. Culture was noticed to have evidence of MRSA and vancomycin has been initiated he is quite uncomfortable. We discussed that his vascular surgeon will need to evaluate. 11/20/2018 the patient continues to feel poorly. He has now been evaluated by vascular surgery and there are plans for exploration of his graft given the marked abnormalities of the been seen. 11/23/2018 the patient is status post surgery where there is evidence of the significant infection to the distal aspect of the right thigh graft, foreign body was removed and cultures are showing evidence of staphylococcal infection as expected. Other than some pain at the site he is improving. 11/24/2018 patient feeling slightly better, however is trying to climb out of bed to get to the bathroom and yet he has not is was to be weightbearing on the right leg with recent surgical intervention. Unclear if his confusion or if he is just being stubborn. 11/30/2018 Patient's mental status has worsened. He is withdrawn and not wanting to eat. He simply wants to go to rehab. He relates there he'll eat and cooperate. It is in the wound VAC needs to be changed and the nurses assisted in this process 12/01/2018 patient is feeling slightly better today. Slightly less withdrawn. He has improved his oral intake somewhat. Pain is well controlled. Except with the dressing change to the abscess of the right leg. Wound VAC seems to be malfunctioning. 12/02/2018 patient is happier that he no longer has a sitter. Wound VAC was changed and working well. Dressing change to the abscess to the right thigh was much less painful today. Looks forward to transitioning to rehab. Objective - Vital Signs Vital signs: Vital Signs Temp 98.8 F 12/02/18 19:12 Pulse 69 12/02/18 19:12 Resp 16 12/02/18 19:12 BP 97/58 12/02/18 19:12 Pulse Ox 97 12/02/18 19:12 Intake & Output 12/02/18 12/02/18 12/03/18 06:59 18:59 06:59 Intake Total 1650 Balance 1650 Intake: Intake, IV Titration 1500 Amount D5-0.45% NaCl with KCl 1000 20Meq/l 1,000 ml @ 100 mls/hr IV .Q10H YASMIN Rx#: [id number] Vancomycin 1,500 mg In 500 Sodium Chloride 0.9% 250 ml @ 125 mls/hr IVPB Q24H YASMIN Rx#:[id number] Oral 150 Other: Voiding Method Toilet Toilet Urinal Urinal # Voids 3 2 1 - Exam 63-year-old male quite uncomfortable HEENT: Anicteric conjunctiva are pink and moist nasal mucosa grossly intact without significant lesions, there is no thrush. Neck: The neck is supple without significant lymphadenopathy or thyromegaly. Lungs: Good bilateral air entry without significant crackles or wheezing. There is no significant bronchial sounds. There is no egophony or dullness. Heart: Regular rate and rhythm with an audible S1-S2, no S3 no S4. There is no significant murmur click or rub, PMI was nondisplaced. Abdomen: Positive bowel sounds soft and nontender without palpable masses or organomegaly. There was no guarding or rebound. Extremities: The upper extremities have no evidence of any distinct lesions. Left lower extremity has evidence of the transmetatarsal amputation site. The site has evidence of good granulation without significant erythema swelling or worsening tenderness. The right lower extremity however has the acute change but is now status post surgical debridement by vascular surgery no lymphadenopathy being seen into the right leg or groin. No other significant abnormal lymph nodes are seen. Neuro: Mentation is much improved today. Patient is an active conversation with an observer as I enter the room. He is comfortable and looks forward to transition to the extended care facility. - Labs CBC & Chem 7: 11/28/18 07:41 12/02/18 06:35 Labs: Abnormal Lab Results - Last 24 Hours (Table) 12/02/18 12/02/18 Range/Units 06:35 16:33 Creatinine 1.43 H (0.66-1.25) mg/dL POC Glucose (mg/dL) 109 H (75-99) mg/dL Laboratory Results WBC 12.7 k/uL (3.8-10.6) H 11/28/18 07:41 RBC 2.88 m/uL (4.30-5.90) L 11/28/18 07:41 Hgb 8.0 gm/dL (13.0-17.5) L 11/28/18 07:41 Hct 24.4 % (39.0-53.0) L 11/28/18 07:41 MCV 84.7 fL (80.0-100.0) 11/28/18 07:41 MCH 27.8 pg (25.0-35.0) 11/28/18 07:41 MCHC 32.8 g/dL (31.0-37.0) 11/28/18 07:41 RDW 16.8 % (11.5-15.5) H 11/28/18 07:41 Plt Count 413 k/uL (150-450) 11/28/18 07:41 Neutrophils % 70 % 11/26/18 05:22 Lymphocytes % 16 % 11/26/18 05:22 Monocytes % 6 % 11/26/18 05:22 Eosinophils % 7 % 11/26/18 05:22 Basophils % 0 % 11/26/18 05:22 Neutrophils # 6.8 k/uL (1.3-7.7) 11/26/18 05:22 Lymphocytes # 1.5 k/uL (1.0-4.8) 11/26/18 05:22 Monocytes # 0.6 k/uL (0-1.0) 11/26/18 05:22 Eosinophils # 0.7 k/uL (0-0.7) 11/26/18 05:22 Basophils # 0.0 k/uL (0-0.2) 11/26/18 05:22 Hypochromasia Slight 11/23/18 04:49 Anisocytosis Slight 11/28/18 07:41 PT 47.5 sec (9.0-12.0) H 11/22/18 18:59 INR 4.9 (<1.2) H 11/22/18 18:59 APTT 82.1 sec (22.0-30.0) H 11/22/18 18:59 Sodium 137 mmol/L (137-145) 11/30/18 06:42 Potassium 4.4 mmol/L (3.5-5.1) 11/30/18 06:42 Chloride 99 mmol/L (98-107) 11/30/18 06:42 Carbon Dioxide 32 mmol/L (22-30) H 11/30/18 06:42 Anion Gap 6 mmol/L 11/30/18 06:42 BUN 11 mg/dL (9-20) 11/30/18 06:42 Creatinine 1.43 mg/dL (0.66-1.25) H 12/02/18 06:35 Est GFR (CKD-EPI)AfAm 61 (>60 ml/min/1.73 sqM) 12/02/18 06:35 Est GFR (CKD-EPI)NonAf 53 (>60 ml/min/1.73 sqM) 12/02/18 06:35 Glucose 90 mg/dL (74-99) 11/30/18 06:42 POC Glucose (mg/dL) 90 mg/dL (75-99) 12/02/18 20:28 POC Glu Top [employer]rier [address] 12/02/18 20:28 Insulin Level 6.2 mIU/mL (3.0-25.0) 11/24/18 04:10 Calcium 8.6 mg/dL (8.4-10.2) 11/30/18 06:42 Magnesium 1.7 mg/dL (1.6-2.3) 11/26/18 05:22 Total Bilirubin 0.2 mg/dL (0.2-1.3) 11/28/18 07:41 AST 18 U/L (17-59) 11/28/18 07:41 ALT 15 U/L (21-72) L 11/28/18 07:41 Alkaline Phosphatase 103 U/L (38-126) 11/28/18 07:41 Total Protein 5.3 g/dL (6.3-8.2) L 11/28/18 07:41 Albumin 2.3 g/dL (3.5-5.0) L 11/28/18 07:41 TSH 3.090 mIU/L (0.465-4.680) 11/22/18 12:03 Stool Occult Blood Positive (Negative) 11/22/18 09:00 Vancomycin Trough 14.9 ug/mL 11/29/18 20:42 Insulin Antibody <0.4 U/mL (0.0-0.4) 11/24/18 04:10 C. difficile (EIA) Intrp Negative (Negative) 11/19/18 19:00 Blood Type O Positive 11/22/18 11:10 Blood Type Confirm O Positive 11/22/18 06:34 Blood Type Recheck No Previous Record 11/22/18 11:10 Bld Type Recheck Status CABO Indicated 11/22/18 11:10 Antibody Screen NEGATIVE 11/22/18 11:10 Crossmatch See Detail 11/22/18 11:10 Spec Expiration Date 11/25/2018 90211/22/18 11:10 Microbiology 11/22/18 12:03 Blood Blood Culture - Final No Growth after 144 hours 11/21/18 10:31 Leg - Right Anaerobic Culture - Final 11/21/18 10:31 Leg - Right Anaerobic Culture - Final 11/18/18 16:30 Blood Blood Culture - Final No Growth after 144 hours 11/21/18 10:31 Leg - Right Gram Stain - Final 11/21/18 10:31 Leg - Right Wound Culture - Final Presumptive MRSA 11/21/18 10:31 Leg - Right Gram Stain - Final 11/21/18 10:31 Leg - Right Wound Culture - Final Methicillin resist S. aureus Assessment and Plan (1) Leukocytosis Current Visit: Yes Status: Acute Code(s): D72.829 - ELEVATED WHITE BLOOD CELL COUNT, UNSPECIFIED SNOMED Code(s): 329525236 (2) MRSA (methicillin resistant staph aureus) culture positive Narrative/Plan: 63-year-old male who has history of severe peripheral vascular disease having increasing difficulties as of late. He developed a gangrenous changes to the left foot in a transmetatarsal amputation was performed. There is evidence of some bony exposure of the metatarsal head and it appears that her further resection of the f fourth metatarsal head occurred in with the negative pressure therapy system has been showing some steady improvement. The patient were to present to the ER couple days ago with increasing pain and tenderness on the distal aspect of the right leg in conjunction with an area of prior vascular bypass. Aspiration was performed and no evidence of MRSA as per nicely. Vancomycin therapy has been initiated. Vascular surgery consultation is requested. There is concerns to infection of his graft. Is somewhat unusual that there is difficulty at 2 different sites along the graft that are not contiguous. However given his history there is great concern that there could be infection of his graft. Blood cultures are in process. Pain control is being addressed. Patient should limit his ambulation. He is without significant high-grade fevers, he did have leukocytosis at admission that is already improving with hydration and antibiotic therapy. Local care to the transmetatarsal amputation site is requested. 11/20/2018 the patient has been evaluated by his vascular surgeon and there is no marked abnormalities as noted. Plans for surgical exploration of that graft are being made. Antibiotic therapy continues. The patient has some diarrhea with C. diff is comeback is negative. Imodium can be utilized if he is having ongoing diarrhea. Pain control seems to be somewhat adequate. Continue local wound care to the left transmetatarsal amputation site 11/23/2018 the patient started to have some improvement. The surgical site on the right thigh just has some scant serosanguineous drainage. The tr ansmetatarsal amputation site left foot is stable. We'll plan on continuing the antibiotic therapy with vancomycin for treatment of the abscess to the right thigh as well as to the left transmetatarsal amputation site. Appetites improving, no diarrhea C. diff that was checked was negative. 11/24/2018 patient is stable, MRSA infection to the right thigh seems to be improving. Drainage is improving. Lesions are seen. Is being followed by his vascular surgeon. No further surgical interventions are noted at this point in time. We'll need to continue intravenous antibiotic therapy was transferred to the rehab facility. IV access requested. 11/30/2018 the patient is medically improved. Is being readied for transfer to the rehab facility. IV access is being placed. Antibiotic therapy is with vancomycin for the MRSA infection of the transmetatarsal site. The nurses assisted in placing the wound VAC dressing, given the location a foam bridge it is designed and is much more effective and allows an excellent seal. Apparently will be discharged to rehab facility tomorrow. December 01 2018 the patient has had some improvement in his status. He is awake alert and interactive. Looks forward to transition to the extended care facility. IVs in place to receive his vancomycin for the next many weeks. Follow wound healing center. The abscess to the right thigh and packed by the surgeon today. The woundvac appears to be malfunctioning and nursing staff will change the vac 12/02/2018 the patient has an improved mental status today. Still not eating very well. But is doing well with his current local wound care. The wound VAC seems to be functioning well afterwards replacement yesterday. The right thigh abscesses repacked today it was much less painful. We'll plan at least a couple weeks of IV antibiotic therapy at the rehab facility with vancomycin. With the blood work as requested and sent to the office. He will follow the wound healing center after discharge Current Visit: Yes Status: Acute Code(s): Z22.322 - CARRIER OR SUSPECTED CARRIER OF METHICILLIN RESIS STAPH SNOMED Code(s): 499312689 (3) Partial nontraumatic amputation of left foot Current Visit: No Status: Acute Code(s): Z89.432 - ACQUIRED ABSENCE OF LEFT FOOT SNOMED Code(s): 127891636
[2018-12-03] MEDS: D5-0.45% NACL WITH KCL 20MEQ/L 1,000 ML IV SCH ×3 (00:18→18:36)
[2018-12-03 06:57] LABS: Glucose,Whole Blood 95 mg/dL (75-99)
[2018-12-03] MEDS: HYDROcodone/APAP 10-325MG 1 EACH TAB PO PRN ×3 (07:20→18:38)
--- NOTE | 2018-12-03 08:16 | P.PN ---
Subjective Principal diagnosis: The patient's right inner thigh has been improving. The patient would like to go home. Chief complaint is not able to obtain secondary to mental state. He's been on suicide precautions for the last 7 days. Appreciate psychiatric input. At this time, he is seemingly medically stable but he is wanting to leave the institution. We will await possible psychiatric commitment however. He is not allowed to leave AGAINST MEDICAL ADVICE at this time. Sitter is noted. He seems clinically improved today. Hopefully psychiatry can clear him of his suicide precautions. We had a long discussion today regarding discharge planning. 12/02 We are still awaiting discharge planning element of versus ECF. Psychiatry is pending for clearance. He does not seem at all emotionally disturbed this morning. No voiding difficulties otherwise stated. No significant nausea, vomiting or diarrhea stated. 12/03 The patient is wanting to go home. However, psychiatry has suggested he needs more time to stabilize before transferring to rehab facility. He will petitioned if he attempts to leave AMA. No significant diarrhea stated. No fever or chills. Appreciate multiple consultants input. Objective - Vital Signs Vital signs: Vital Signs Temp 97.9 F 12/03/18 07:58 Pulse 76 12/03/18 07:58 Resp 16 12/03/18 07:58 BP 122/64 12/03/18 07:58 Pulse Ox 94 L 12/03/18 07:58 Intake & Output 12/02/18 12/03/18 12/03/18 18:59 06:59 18:59 Intake Total 500 Balance 500 Intake: Oral 500 Other: Voiding Method Toilet Toilet Urinal Urinal # Voids 2 1 - Constitutional General appearance: Present: average body habitus - EENT Eyes: Absent: abnormal pupil - Respiratory Respiratory: bilateral: CTA - Cardiovascular Rhythm: regular Heart sounds: normal: S1, S2 Abnormal Heart Sounds: Absent: S3 Gallop - Gastrointestinal General gastrointestinal: Present: soft. Absent: tenderness - Neurologic Neurologic: Present: CNII-XII intact. Absent: focal deficits - Labs CBC & Chem 7: 11/28/18 07:41 12/02/18 06:35 Labs: Abnormal Lab Results - Last 24 Hours (Table) 12/02/18 Range/Units 16:33 POC Glucose (mg/dL) 109 H (75-99) mg/dL Assessment and Plan (1) Leukocytosis Current Visit: Yes Status: Acute Code(s): D72.829 - ELEVATED WHITE BLOOD CELL COUNT, UNSPECIFIED SNOMED Code(s): 234491256 (2) MRSA (methicillin resistant staph aureus) culture positive Current Visit: Yes Status: Acute Code(s): Z22.322 - CARRIER OR SUSPECTED CARRIER OF METHICILLIN RESIS STAPH SNOMED Code(s): 784469689 (3) Soft tissue mass Current Visit: Yes Status: Acute Code(s): M79.89 - OTHER SPECIFIED SOFT TISSUE DISORDERS SNOMED Code(s): 676936989 (4) COPD (chronic obstructive pulmonary disease) Current Visit: No Status: Acute Code(s): J44.9 - CHRONIC OBSTRUCTIVE PULMONARY DISEASE, UNSPECIFIED SNOMED Code(s): 45982376 (5) Partial nontraumatic amputation of left foot Current Visit: No Status: Acute Code(s): Z89.432 - ACQUIRED ABSENCE OF LEFT FOOT SNOMED Code(s): 354979058 (6) Seroma Current Visit: No Status: Acute Code(s): ARC5103 - SNOMED Code(s): 572148689 (7) Acute depression Current Visit: Yes Status: Acute Code(s): F32.9 - MAJOR DEPRESSIVE DISORDER, SINGLE EPISODE, UNSPECIFIED SNOMED Code(s): 630564326 Plan: From medical perspective, cellulitis and abscess are significantly improved. He is being held secondary to his mental state. Appreciate psychiatric input. Minimize psychotropic medications and opiates. We'll anticipate transfer to rehab when bed available. Check CBC and CMP in a.m. Time with Patient: Greater than 30
--- NOTE | 2018-12-03 08:35 | P.PN ---
Subjective Progress Note Date: 12/03/18 Principal diagnosis: Status post transmetatarsal amputation left foot. Patient indicates that his pain is well-controlled and wishes no complaints. He remains on intravenously administered antibiotics. Vital signs are stable and patient is afebrile. There is no leg edema. Wound VAC is in place and is functioning well Surgically the patient is stable. We will Hep-Lock his IV fluids. We await discharge arrangements. Plan for office follow-up for possible debridement of bone should this be necessary. Objective - Vital Signs Vital signs: Vital Signs Temp 97.9 F 12/03/18 07:58 Pulse 76 12/03/18 07:58 Resp 16 12/03/18 07:58 BP 122/64 12/03/18 07:58 Pulse Ox 94 L 12/03/18 07:58 Intake & Output 12/02/18 12/03/18 12/03/18 18:59 06:59 18:59 Intake Total 500 Balance 500 Intake: Oral 500 Other: Voiding Method Toilet Toilet Urinal Urinal # Voids 2 1 - Labs CBC & Chem 7: 11/28/18 07:41 12/02/18 06:35 Labs: Abnormal Lab Results - Last 24 Hours (Table) 12/02/18 Range/Units 16:33 POC Glucose (mg/dL) 109 H (75-99) mg/dL
[2018-12-03] MEDS: COLCHICIN-PROBENECID 0.5-500MG 1 EACH TAB PO SCH (08:58)
[2018-12-03] MEDS: NICOTINE 21MG/24HR PATCH TRANSDERM SCH (08:58)
[2018-12-03] MEDS: MAGNESIUM OXIDE 400 MG TAB PO SCH (08:58)
[2018-12-03] MEDS: METOPROLOL TARTRATE 25 MG TAB PO SCH (08:58)
[2018-12-03] MEDS: SERTRALINE 100 MG TAB PO SCH (08:58)
[2018-12-03] MEDS: ZINC SULFATE 220 MG CAP PO SCH (08:58)
[2018-12-03] MEDS: HEPARIN SODIUM,PORCINE 5,000 UNIT/ML 1 ML VIAL SQ SCH ×2 (08:59→22:39)
[2018-12-03] MEDS ORDERED: DIAZEPAM 5 MG TAB PO SCH (09:00)
[2018-12-03] MEDS: PANTOPRAZOLE 40 MG TABLET PO SCH ×2 (09:07→18:36)
[2018-12-03 09:55] LABS: INR 0.9 (<1.2); Partial Thromboplastin Time 33.5 sec (22.0-30.0)
[2018-12-03] MEDS ORDERED: VANCOMYCIN TROUGH DUE 1 EACH MISC MISCELLANE ONE (20:00)
--- NOTE | 2018-12-03 21:59 | P.PN ---
Subjective Progress Note Date: 12/03/18 63-year-old male has multiple medical troubles including severe peripheral vascular disease and a history of gout. The patient has been following with the vascular surgeon as well as the wound healing Center regarding a nonhealing ulceration to his left foot. Due to gangrenous changes he did have amputation to the left great toe. An open ulceration continued and there was evidence of exposure of the first metatarsal. Local wound care was being utilized in the wound VAC was being attempted. The patient presented to the wound center where he has been receiving ongoing care, in August the patient however is evidence of extensive gangrenous change of the foot was sent to emergency center at admission through his primary care physician.At that time he was seen by vascular surgery and transmetatarsal amputation was performed with a potential conversion to a [id number] amputation if he did not respond well. He fortunately has been doing relatively well with the negative pressure therapy system being applied to the transmetatarsal amputation site. He did require 1 bony revision because of exposure to metatarsal head. They have been showing some improvement. Gen. the patient was starting to have some improvement but he then developed some significant swelling to his right leg distally related to the prior incision from his vascular bypass. Apparently he was seen in the o utpatient setting and aspiration was performed MRSA was isolated. He doesn't. He was placed on some oral antibiotic therapy but despite this the leg worsened became more tight warm erythematous and painful and he noticed that there was also evidence of some swelling to the more proximal aspect of his thigh at the more cephalad aspect of his bypass. Culture was noticed to have evidence of MRSA and vancomycin has been initiated he is quite uncomfortable. We discussed that his vascular surgeon will need to evaluate. 11/20/2018 the patient continues to feel poorly. He has now been evaluated by vascular surgery and there are plans for exploration of his graft given the marked abnormalities of the been seen. 11/23/2018 the patient is status post surgery where there is evidence of the significant infection to the distal aspect of the right thigh graft, foreign body was removed and cultures are showing evidence of staphylococcal infection as expected. Other than some pain at the site he is improving. 11/24/2018 patient feeling slightly better, however is trying to climb out of bed to get to the bathroom and yet he has not is was to be weightbearing on the right leg with recent surgical intervention. Unclear if his confusion or if he is just being stubborn. 11/30/2018 Patient's mental status has worsened. He is withdrawn and not wanting to eat. He simply wants to go to rehab. He relates there he'll eat and cooperate. It is in the wound VAC needs to be changed and the nurses assisted in this process 12/01/2018 patient is feeling slightly better today. Slightly less withdrawn. He has improved his oral intake somewhat. Pain is well controlled. Except with the dressing change to the abscess of the right leg. Wound VAC seems to be malfunctioning. 12/02/2018 patient is happier that he no longer has a sitter. Wound VAC was changed and working well. Dressing change to the abscess to the right thigh was much less painful today. Looks forward to transitioning to rehab. 12/03/2018 the patient is having some further improvement. There is now notation that he'll be going to a home setting rather than extended care. New plans are in place. Objective - Vital Signs Vital signs: Vital Signs Temp 97.9 F 12/03/18 19:00 Pulse 75 12/03/18 19:00 Resp 16 12/03/18 19:00 BP 106/67 12/03/18 19:00 Pulse Ox 97 12/03/18 19:00 Intake & Output 12/03/18 12/03/18 12/04/18 06:59 18:59 06:59 Intake Total 500 230 Balance 500 230 Intake: Oral 500 230 Other: Voiding Method Toilet Toilet Urinal Urinal # Voids 1 3 - Exam 63-year-old male quite uncomfortable HEENT: Anicteric conjunctiva are pink and moist nasal mucosa grossly intact without significant lesions, there is no thrush. Neck: The neck is supple without significant lymphadenopathy or thyromegaly. Lungs: Good bilateral air entry without significant crackles or wheezing. There is no significant bronchial sounds. There is no egophony or dullness. Heart: Regular rate and rhythm with an audible S1-S2, no S3 no S4. There is no significant murmur click or rub, PMI was nondisplaced. Abdomen: Positive bowel sounds soft and nontender without palpable masses or organomegaly. There was no guarding or rebound. Extremities: The upper extremities have no evidence of any distinct lesions. Left lower extremity has evidence of the transmetatarsal amputation site. The site has evidence of good granulation without significant erythema swelling or worsening tenderness. The right lower extremity however has the acute change but is now status post surgical debridement by vascular surgery no lymphadenopathy being seen into the right leg or groin. No other significant abnormal lymph nodes are seen. Neuro: Mentation is much improved today. Patient is an active conversation with an observer as I enter the room. He is comfortable and looks forward to t ransition to home. - Labs CBC & Chem 7: 11/28/18 07:41 12/02/18 06:35 Labs: Abnormal Lab Results - Last 24 Hours (Table) 12/03/18 Range/Units 09:24 APTT 33.5 H (22.0-30.0) sec Laboratory Results WBC 12.7 k/uL (3.8-10.6) H 11/28/18 07:41 RBC 2.88 m/uL (4.30-5.90) L 11/28/18 07:41 Hgb 8.0 gm/dL (13.0-17.5) L 11/28/18 07:41 Hct 24.4 % (39.0-53.0) L 11/28/18 07:41 MCV 84.7 fL (80.0-100.0) 11/28/18 07:41 MCH 27.8 pg (25.0-35.0) 11/28/18 07:41 MCHC 32.8 g/dL (31.0-37.0) 11/28/18 07:41 RDW 16.8 % (11.5-15.5) H 11/28/18 07:41 Plt Count 413 k/uL (150-450) 11/28/18 07:41 Neutrophils % 70 % 11/26/18 05:22 Lymphocytes % 16 % 11/26/18 05:22 Monocytes % 6 % 11/26/18 05:22 Eosinophils % 7 % 11/26/18 05:22 Basophils % 0 % 11/26/18 05:22 Neutrophils # 6.8 k/uL (1.3-7.7) 11/26/18 05:22 Lymphocytes # 1.5 k/uL (1.0-4.8) 11/26/18 05:22 Monocytes # 0.6 k/uL (0-1.0) 11/26/18 05:22 Eosinophils # 0.7 k/uL (0-0.7) 11/26/18 05:22 Basophils # 0.0 k/uL (0-0.2) 11/26/18 05:22 Hypochromasia Slight 11/23/18 04:49 Anisocytosis Slight 11/28/18 07:41 PT 10.0 sec (9.0-12.0) 12/03/18 09:24 INR 0.9 (<1.2) 12/03/18 09:24 APTT 33.5 sec (22.0-30.0) H 12/03/18 09:24 Sodium 137 mmol/L (137-145) 11/30/18 06:42 Potassium 4.4 mmol/L (3.5-5.1) 11/30/18 06:42 Chloride 99 mmol/L (98-107) 11/30/18 06:42 Carbon Dioxide 32 mmol/L (22-30) H 11/30/18 06:42 Anion Gap 6 mmol/L 11/30/18 06:42 BUN 11 mg/dL (9-20) 11/30/18 06:42 Creatinine 1.43 mg/dL (0.66-1.25) H 12/02/18 06:35 Est GFR (CKD-EPI)AfAm 61 (>60 ml/min/1.73 sqM) 12/02/18 06:35 Est GFR (CKD-EPI)NonAf 53 (>60 ml/min/1.73 sqM) 12/02/18 06:35 Glucose 90 mg/dL (74-99) 11/30/18 06:42 POC Glucose (mg/dL) 95 mg/dL (75-99) 12/03/18 06:55 POC Glu Screen Cutter And Trimmer ID Jen Luna 12/03/18 06:55 Insulin Level 6.2 mIU/mL (3.0-25.0) 11/24/18 04:10 Calcium 8.6 mg/dL (8.4-10.2) 11/30/18 06:42 Magnesium 1.7 mg/dL (1.6-2.3) 11/26/18 05:22 Total Bilirubin 0.2 mg/dL (0.2-1.3) 11/28/18 07:41 AST 18 U/L (17-59) 11/28/18 07:41 ALT 15 U/L (21-72) L 11/28/18 07:41 Alkaline Phosphatase 103 U/L (38-126) 11/28/18 07:41 Total Protein 5.3 g/dL (6.3-8.2) L 11/28/18 07:41 Albumin 2.3 g/dL (3.5-5.0) L 11/28/18 07:41 TSH 3.090 mIU/L (0.465-4.680) 11/22/18 12:03 Stool Occult Blood Positive (Negative) 11/22/18 09:00 Vancomycin Trough 14.9 ug/mL 11/29/18 20:42 Insulin Antibody <0.4 U/mL (0.0-0.4) 11/24/18 04:10 C. difficile (EIA) Intrp Negative (Negative) 11/19/18 19:00 Blood Type O Positive 11/22/18 11:10 Blood Type Confirm O Positive 11/22/18 06:34 Blood Type Recheck No Previous Record 11/22/18 11:10 Bld Type Recheck Status CABO Indicated 11/22/18 11:10 Antibody Screen NEGATIVE 11/22/18 11:10 Crossmatch See Detail 11/22/18 11:10 Spec Expiration Date 11/25/2018 - 230911/22/18 11:10 Microbiology 11/22/18 12:03 Blood Blood Culture - Final No Growth after 144 hours 11/21/18 10:31 Leg - Right Anaerobic Culture - Final 11/21/18 10:31 Leg - Right Anaerobic Culture - Final 11/18/18 16:30 Blood Blood Culture - Final No Growth after 144 hours 11/21/18 10:31 Leg - Right Gram Stain - Final 11/21/18 10:31 Leg - Right Wound Culture - Final Presumptive MRSA 11/21/18 10:31 Leg - Right Gram Stain - Final 11/21/18 10:31 Leg - Right Wound Culture - Final Methicillin resist S. aureus Assessment and Plan (1) Leukocytosis Current Visit: Yes Status: Acute Code(s): D72.829 - ELEVATED WHITE BLOOD CELL COUNT, UNSPECIFIED SNOMED Code(s): 073663946 (2) MRSA (methicillin resistant staph aureus) culture positive Narrative/Plan: 63-year-old male who has history of severe peripheral vascular disease having increasing difficulties as of late. He developed a gangrenous changes to the left foot in a transmetatarsal amputation was performed. There is evidence of some bony exposure of the metatarsal head and it appears that her further resection of the f fourth metatarsal head occurred in with the negative pressure therapy system has been showing some steady improvement. The patient were to present to the ER couple days ago with increasing pain and tenderness on the distal aspect of the right leg in conjunction with an area of prior vascular bypass. Aspiration was performed and no evidence of MRSA as per nicely. Vancomycin therapy has been initiated. Vascular surgery consultation is requested. There is concerns to infection of his graft. Is somewhat unusual that there is difficulty at 2 different sites along the graft that are not contiguous. However given his history there is great concern that there could be infection of his graft. Blood cultures are in process. Pain control is being addressed. Patient should limit his ambulation. He is without signifi cant high-grade fevers, he did have leukocytosis at admission that is already improving with hydration and antibiotic therapy. Local care to the transmetatarsal amputation site is requested. 11/20/2018 the patient has been evaluated by his vascular surgeon and there is no marked abnormalities as noted. Plans for surgical exploration of that graft are being made. Antibiotic therapy continues. The patient has some diarrhea with C. diff is comeback is negative. Imodium can be utilized if he is having ongoing diarrhea. Pain control seems to be somewhat adequate. Continue local wound care to the left transmetatarsal amputation site 11/23/2018 the patient started to have some improvement. The surgical site on the right thigh just has some scant serosanguineous drainage. The transmetatars al amputation site left foot is stable. We'll plan on continuing the antibiotic therapy with vancomycin for treatment of the abscess to the right thigh as well as to the left transmetatarsal amputation site. Appetites improving, no diarrhea C. diff that was checked was negative. 11/24/2018 patient is stable, MRSA infection to the right thigh seems to be improving. Drainage is improving. Lesions are seen. Is being followed by his vascular surgeon. No further surgical interventions are noted at this point in time. We'll need to continue intravenous antibiotic therapy was transferred to the rehab facility. IV access requested. 11/30/2018 the patient is medically improved. Is being readied for transfer to the rehab facility. IV access is being placed. Antibiotic therapy is with vancomycin for the MRSA infection of the transmetatarsal site. The nurses assisted in placing the wound VAC dressing, given the location a foam bridge it is designed and is much more effective and allows an excellent seal. Apparently will be discharged to rehab facility tomorrow. December 01 2018 the patient has had some improvement in his status. He is awake alert and interactive. Looks forward to transition to the extended care facility. IVs in place to receive his vancomycin for the next many weeks. Follow wound healing center. The abscess to the right thigh and packed by the surgeon today. The woundvac appears to be malfunctioning and nursing staff will change the vac 12/02/2018 the patient has an improved mental status today. Still not eating very well. But is doing well with his current local wound care. The wound VAC seems to be functioning well afterwards replacement yesterday. The right thigh abscesses repacked today it was much less painful. We'll plan at least a couple weeks of IV antibiotic therapy at the rehab facility with vancomycin. With the blood work as requested and sent to the office. He will follow the wound healing center after discharge 12/03/2018 the patient is doing relatively well at this time. The negative pressure therapy device to the left foot is functioning well. Is not related that he'll be going to the home setting. Orders for the home wound VAC of now been signed. We'll also need to work with home IV antibiotic therapy if this is an option. Currently receiving vancomycin 1500 mg IV piggyback daily. If necessary income to the office for his daily infusions. The wound VAC to the left transmetatarsal amputation site will be changed by the home care nurse. The right thigh packing will have to also be done by the home care. Potentially this can be transitioned to a woven silver rope or Hydrofera Blue. Current Visit: Yes Status: Acute Code(s): Z22.322 - CARRIER OR SUSPECTED CARRIER OF METHICILLIN RESIS STAPH SNOMED Code(s): 368177071 (3) Partial nontraumatic amputation of left foot Current Visit: No Status: Acute Code(s): Z89.432 - ACQUIRED ABSENCE OF LEFT FOOT SNOMED Code(s): 972112454
[2018-12-03] MEDS: ATORVASTATIN 20 MG TAB PO SCH (22:39)
[2018-12-03] MEDS: VANCOMYCIN 1,500 MG in SODIUM CHLORIDE 0.9% 250 ML IVPB SCH (22:39)
[2018-12-03] MEDS: MIRTAZAPINE 15 MG TAB PO SCH (22:39)
[2018-12-04] MEDS: D5-0.45% NACL WITH KCL 20MEQ/L 1,000 ML IV SCH (05:08)
[2018-12-04 06:54] LABS: Prothrombin Time 10.9 sec (9.0-12.0)
[2018-12-04 06:56] LABS: Anisocytosis Slight; HCT 27.8 % (39.0-53.0); HGB 9.2 gm/dL (13.0-17.5); MCHC 33.1 g/dL (31.0-37.0); MCV 84.5 fL (80.0-100.0); Mean Platelet Volume 7.3; Platelet Count 429 k/uL (150-450); RBC 3.29 m/uL (4.30-5.90); RDW 17.1 % (11.5-15.5); WBC 11.8 k/uL (3.8-10.6)
[2018-12-04 06:58] LABS: Albumin 2.9 g/dL (3.5-5.0); Calcium 8.9 mg/dL (8.4-10.2); Potassium 3.8 mmol/L (3.5-5.1); Total Bilirubin 0.4 mg/dL (0.2-1.3); Total Protein 6.4 g/dL (6.3-8.2)
[2018-12-04 07:48] VITALS: RESP 16
[2018-12-04] MEDS: HEPARIN SODIUM,PORCINE 5,000 UNIT/ML 1 ML VIAL SQ SCH (09:17)
[2018-12-04] MEDS: MAGNESIUM OXIDE 400 MG TAB PO SCH (09:22)
[2018-12-04] MEDS: HYDROcodone/APAP 10-325MG 1 EACH TAB PO PRN ×2 (09:22→13:31)
[2018-12-04] MEDS: SERTRALINE 100 MG TAB PO SCH (09:22)
[2018-12-04] MEDS: COLCHICIN-PROBENECID 0.5-500MG 1 EACH TAB PO SCH (09:23)
[2018-12-04] MEDS: PANTOPRAZOLE 40 MG TABLET PO SCH (09:23)
[2018-12-04] MEDS: ZINC SULFATE 220 MG CAP PO SCH (09:23)
[2018-12-04] MEDS: METOPROLOL TARTRATE 25 MG TAB PO SCH (09:23)
[2018-12-04] MEDS: NICOTINE 21MG/24HR PATCH TRANSDERM SCH (09:24)
[2018-12-04] MEDS ORDERED: LIDOCAINE 1% INJ 10MG/ML (20 ML MDV) SQ ONE ×2 (12:29→12:54)
[2018-12-04] MEDS ORDERED: IOPAMIDOL-370 50ML BTL INJ ONE (12:55)
--- NOTE | 2018-12-04 13:27 | IR ---
EXAMINATION TYPE: IR venogram upper ext LT, IR cvc insert >=5 years DATE OF EXAM: 12/04/2018 COMPARISON: NONE CLINICAL HISTORY: Infection Needs long-term intravenous access for antibiotics. PROCEDURE: After informed consent, the skin overlying the left basilic vein was localized with ultrasound and no cesar to be compressible and patent. An ultrasound image was obtained and submitted on the patient's c barboza. The overlying skin was prepped and draped and Lidocaine was used for local anesthesia. A skin candida was made with a scalpel. Access was gained to the vein under ultrasound guidance with a 21 gau ge needle and a 0.018 inch wire was advanced, wire exchange for a 0.018 inch wire which was advanced centrally following upper extremity venogram. Catheter could not be advanced over the wire. At the u pper extremity was aborted. Using similar technique the right basilic vein was evaluated and the overlying skin prepped and drape d. Lidocaine used for local anesthesia and a skin candida made with a scalpel. Access gained to the vein under direct ultrasound guidance with a 21-gauge needle. The vein was noted be patent and compressib le. 0.018 wire was advanced centrally. Access site was dilated with Peel-Away sheath and catheter casie lored to the appropriate length and advanced such that the distal tip is at the cavoatrial junction. Spot image was obtained verifying placement. Catheter was fixed to the skin and a sterile dressing was placed following hemostasis. Catheter was aspirated and flushed with saline. Patient was discha rged in stable condition without complication. Maximal barrier technique is utilized. Ultrasound herman ge is documented on the chart. Ultrasound used with sterile technique. FINDINGS: There are prominent valves present, the left axillary vein is patent however. Catheter coul d not be advanced centrally to this level however. 5.3 minutes fluoroscopy time, 108 intraoperative images. IMPRESSION: STATUS POST ULTRASOUND AND FLUOROSCOPIC GUIDED PICC LINE PLACEMENT, READY FOR USE. THIS PROCEDURE WAS PERFORMED BY THE UNDERSIGNED.
[2018-12-04 13:33] VITALS: BP 94/58; PULSE 76; TEMP 97.7
[2018-12-04] MEDS ORDERED: VANCOMYCIN 1,500 MG in SODIUM CHLORIDE 0.9% 250 ML IVPB ONE (14:00)
[2018-12-04] MEDS ORDERED: HYDROcodone/APAP 10-325MG 1 EACH TAB PO ONE (14:42)
--- NOTE | 2018-12-04 15:16 | P.PN ---
<Vandana Cha - Last Filed: 12/04/18 14:57> Subjective Progress Note Date: 12/04/18 Principal diagnosis: This is a 63-year-old male who is a patient of Dr. Arteaga and was recently admitted for right thigh medial mass near his surgical scar area and was found to have MRSA on cultures and is being followed closely. Multiple medical consultations are following. Patient denies any shortness of breath, chest pain, or palpitations at this time. Patient has been afebrile. Patient denies any nausea or vomiting and has been tolerating diet. Patient states that he doesn't eat very well and just picks at the food. Patient denies any suicidal ideation or thoughts of wanting to harm himself. Patient states that he wants to leave today. Patient received a PICC line today for outpatient antibiotic therapy per infectious disease recommendations. Currently awaiting psychiatric clearance as patient was on suicide precautions previously. Objective - Vital Signs Vital signs: Vital Signs Temp 97.7 F 12/04/18 13:33 Pulse 76 12/04/18 13:33 Resp 16 12/04/18 13:33 BP 94/58 12/04/18 13:33 Pulse Ox 93 L 12/04/18 13:33 Intake & Output 12/03/18 12/04/18 12/04/18 18:59 06:59 18:59 Intake Total 230 Balance 230 Weight 82.8 kg Intake: Oral 230 Other: Voiding Method Toilet Toilet Urinal Urinal # Voids 3 2 - Exam Gen: This is a 63-year-old male lying in bed in no acute distress. Blood pressure is 140/81, pulse is 85, respirations are 16, temp is 98F, oxygen saturation is 93% on room air. HEENT: Head is atraumatic, normocephalic. Pupils equal, round. Sclerae is anicteric. NECK: Supple. No JVD. No lymphadenopathy. No thyromegaly. LUNGS: Diminished breath sounds at the bases otherwise clear to auscultation. No wheezes or rhonchi. No intercostal retractions. HEART: Regular rate and rhythm. No murmur. ABDOMEN: Soft. Bowel sounds are present. No masses. No tenderness. EXTREMITIES: No pedal edema. No calf tenderness. Partial amputation of the left foot noted as well as wound VAC, right knee with wound VAC also and Kerlix dressing noted, is dry and intact. NEUROLOGICAL: Patient is awake, alert and oriented x3. Cranial nerves 2 through 12 are grossly intact. - Labs CBC & Chem 7: 12/04/18 06:32 12/04/18 06:32 Labs: Abnormal Lab Results - Last 24 Hours (Table) 12/04/18 12/04/18 Range/Units 06:32 06:32 WBC 11.8 H (3.8-10.6) k/uL RBC 3.29 L (4.30-5.90) m/uL Hgb 9.2 L (13.0-17.5) gm/dL Hct 27.8 L (39.0-53.0) % RDW 17.1 H (11.5-15.5) % Carbon Dioxide 33 H (22-30) mmol/L Creatinine 1.30 H (0.66-1.25) mg/dL Alkaline Phosphatase 132 H (38-126) U/L Albumin 2.9 L (3.5-5.0) g/dL Assessment and Plan Assessment: Leukocytosis MRSA Soft tissue mass of the right thigh Chronic obstructive pulmonary disease partial nontraumatic amputation of the left foot Seroma Acute depression Recommendations and discussion Recommend to continue current medications, management, and symptomatic treatment. Patient is to continue with a wound VAC to the left foot and right knee and will continue on IV antibiotics per infectious disease recommendations. Psychiatry is following closely. Patient continues to make comments about leaving AMA and have discussed in length with the patient about this and is currently unable to do this and will be petitioned if necessary until there is psychiatric clearance. licensed master social worker following as they are working on outpatient IV antibiotic therapy as well as wound VAC treatment and possible rehab or home care visits being set up. Guarded prognosis. Further recommendations to follow. <Sheet,Stewatr E - Last Filed: 12/05/18 07:58> Subjective please disregard this note , pt was discharged on the same day. Please refer to the discharge summary written by me on the same day Objective - Vital Signs Vital signs: Vital Signs Temp 97.7 F 12/04/18 13:33 Pulse 76 12/04/18 13:33 Resp 16 12/04/18 13:33 BP 94/58 12/04/18 13:33 Pulse Ox 93 L 12/04/18 13:33 Intake & Output 12/04/18 12/05/18 12/05/18 18:59 06:59 18:59 Weight 82.8 kg Other: # Voids 2 # Bowel Movements 1 - Labs CBC & Chem 7: 12/04/18 06:32 12/04/18 06:32
--- NOTE | 2018-12-04 16:47 | P.PN ---
Progress Note - Text Progress Note Date: 12/04/18 Psychiatric progress note: Interval History: Patient was seen for follow-up today by sports book writer for suicidal ideations and depression from the original consultation. As per nurse who is taking care patient, claims that patient has been more cooperative today and more animated and participating in treatment and taking his medications and has not been endorsing any suicidal ideations. Patient continues on Zoloft 100 mg daily along with Remeron 15 mg nightly for insomnia and mood. Patient is continuing to receiving antibiotics and fluids along with wound care for his foot. Patient was agreeable to speak to sports book writer this afternoon and patient was laying down in bed and appeared to be in brighter spirits and a more positive affect. Patient was more communicative as well and was expressing his frustrations with the sitters that were "watching my every move" and is now more appreciative of not having any sitters in the room and thanked sports book writer for this. Patient appeared to have better eye contact today and more directable and was future oriented. He spoke about his family and his daughter that were going to come visit him and help him at home, he also spoke about his grandchildren who he misses. Patient stated that he wanted to leave the hospital so he could visit his 's grave as he has been doing for the past year. He states that his pain is improved in the offers no complaints and states that his wounds are gradually improving which he is happy about. He states that his mood has improved gradually with the medications and he states that he is sleeping throughout the night and has a fair appetite. At this time he is denying any suicidal or homicidal ideations intent or plan, he also denies any access to guns or weapons. Patient denies any auditory, visual hallucinations and denies any paranoia or delusions. Patient denies any side effects from the medications and has been compliant with meds. Mental Status Exam: General Appearance: Patient appears to be older than stated age is alert, directable and more communicative. Patient is thin and is lying in the hospital bed with fair hygiene and grooming. Improved eye contact. Behavior: Patient is calmly lying in bed without any agitated behavior. Speech: Patient's speech is fluent and nonpressured. Normal tone. Mood/Affect: Patient reports their mood is "better", affect is congruent Suicidality/Homicidality: Patient denies having any suicidal or homicidal ideation intent or plan. Perceptions: Patient denies any auditory or visual hallucinations. Though content/process: There is no evidence of any delusional thought content and thought process is linear and goal-directed. Future oriented Memory and concentration: AOX3, grossly intact for the purposes of this session. Judgment and insight: Fair, improved mildly. Assessment Major depressive disorder, mild Alcohol use disorder Cannabis use disorder PLAN: -Patient is more communicative today and reports a better mood and improvement in his depressive symptoms including better appetite and sleep. Patient also denies any suicidal ideations intent or plan and denies any access to guns or weapons. Patient is continuing to engage in treatment and appears to be more future oriented with regards to his care and follow-up. Patient described wanting to live for his "family, restaurants and money". Patient has been taking his medication with the exception of Zoloft and Remeron. -I spoke with Zaina Hart, patient's [id number] over the phone at [phone] who gave more collateral about patient's history and patient's baseline. She stated that patient is right now at his baseline and states that she sees a great improvement in his mood and behavior. She also stated that if patient remains in the hospital he will get more agitated as he really wants to visit his at the grave like he regularly has been doing. She denies patient having access to any guns or weapons and claims that along with herself and her brother and her [id number] would be able to check on patient and help care for him during the day. She also offered if patient would be agreeable to live with her and her upon discharge. -Medications: Increased Zoloft to 150 mg daily for mood. Will continue with Remeron 15 mg daily at bedtime for appetite insomnia and mood. -Continue with medical management and treatment as per primary team. Although it would be ideal for patient to go to rehab or extended care facility at this time patient has been denied by the facilities in the area and family is willing to help care for patient at home therefore patient can be discharged home with home health care and close family support once patient is medically stable. -Patient will need proper follow-up with primary care provider for management of his medical and psychiatric treatment. -Psychiatry will sign off at this time.
--- NOTE | 2018-12-04 19:14 | P.DS ---
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 Patient will continue to go to Dr. Arellano office for IV infusions. IV antibiotics have been arranged per infectious disease recommendations. Total time taken is 35 minutes. History of present illness This is a 63-year-old male who is a patient of Dr. Arteaga and was recently admitted for right thigh medial mass near his surgical scar area and was found to have MRSA on cultures and is being followed closely. Multiple medical consultations are following. Patient denies any shortness of breath, chest pain, or palpitations at this time. Patient has been afebrile. Patient denies any nausea or vomiting and has been tolerating diet. Patient denies any suicidal ideation or thoughts of wanting to harm himself. Patient states that he wants to leave today. Patient received a PICC line today for outpatient antibiotic therapy per infectious disease recommendations. Patient also has a wound vac in place of the left foot as well as the right thigh there are dressings that are dry and intact. Patient was cleared by psychiatry. Spoke with daughter as she is a nurse and she stated that she would be taking him to his appointments, handling his IV infusions and would be taking care of his wounds. Currently patients condition is stable with much improvement and ready for discharge. Patient is refusing a rehab facility at this time as he has his daughter helping and will be visited by home care. On exam, vital signs are stable. Blood pressure is 140/81, pulse is 85, respirations are 16, temp is 98F, oxygen saturation is 93% on room air. Cardio S1, S2 are muffled. Respiratory system shows diminished breath sounds at the bases. Abdomen is soft and non-tender. Nervous system shows no focal deficits with mild diffuse weakness. Please refer to medication reconciliation sheet for a list of medications. Patient Condition at Discharge: Fair Plan - Discharge Summary Discharge Rx Participant: No New Discharge Prescriptions: New Vancomycin 1,500 mg IVPB Q24HR #14 bag Nicotine 21Mg/24Hr Patch [Habitrol] 1 patch TRANSDERM DAILY #30 patch HYDROcodone/APAP 10-325MG [Marvin 10-325] 1 each PO Q8H PRN #10 tab PRN Reason: Pain Mirtazapine [Remeron] 15 mg PO HS #30 tab Sertraline [Zoloft] 150 mg PO DAILY #30 tab Continue Metoprolol Tartrate 25 mg PO DAILY Probenecid/Colchicine [Probenecid-Colchicine Tabs] 1 tab PO BID Zinc 50 mg PO DAILY Omeprazole 20 mg PO DAILY@0600 Lactose-Reduced Food [Ensure Plus] 237 ml PO TID Magnesium Oxide 400 mg PO DAILY Gabapentin [Neurontin] 300 mg PO TID PRN PRN Reason: Pain Diphenox-Atrop 2.5-0.025 mg [Lomotil] 1 tab PO Q6HR PRN PRN Reason: Diarrhea Atorvastatin [Lipitor] 20 mg PO HS Discontinued Diazepam [Valium] 10 mg PO BID@0900,2100 Sertraline [Zoloft] 50 mg PO DAILY Discharge Medication List Metoprolol Tartrate 25 mg PO DAILY 12/15/14 [History] Probenecid/Colchicine [Probenecid-Colchicine Tabs] 1 tab PO BID 07/05/18 [History] Omeprazole 20 mg PO DAILY@0600 08/24/18 [History] Zinc 50 mg PO DAILY 08/24/18 [History] Lactose-Reduced Food [Ensure Plus] 237 ml PO TID 09/14/18 [History] Magnesium Oxide 400 mg PO DAILY 09/14/18 [History] Atorvastatin [Lipitor] 20 mg PO HS 11/18/18 [History] Diphenox-Atrop 2.5-0.025 mg [Lomotil] 1 tab PO Q6HR PRN 11/18/18 [History] Gabapentin [Neurontin] 300 mg PO TID PRN 11/18/18 [History] Vancomycin 1,500 mg IVPB Q24HR #14 bag 12/03/18 [Rx] HYDROcodone/APAP 10-325MG [Marvin 10-325] 1 each PO Q8H PRN #10 tab 12/04/18 [Rx] Mirtazapine [Remeron] 15 mg PO HS #30 tab 12/04/18 [Rx] Nicotine 21Mg/24Hr Patch [Habitrol] 1 patch TRANSDERM DAILY #30 patch 12/04/18 [Rx] Sertraline [Zoloft] 150 mg PO DAILY #30 tab 12/04/18 [Rx] Follow up Appointment(s)/Referral(s): Malik Bui MD [Primary Care Provider] - 1-2 days Terell Hawthorne DO [Doctor of Osteopathic Medicine] - 1 Week [facility], [NON-STAFF] - [facility],Infusion [NON-STAFF] - Elver Wheeler MD [STAFF PHYSICIAN] - 1 Week Ambulatory/Diagnostic Orders: Basic Metabolic Panel [LAB.AMB] Location: None Selected Complete Blood Count w/diff [LAB.AMB] Location: None Selected Miscellaneous Lab Order [LAB.AMB] Location: None Selected Patient Instructions/Handouts: Acute Wound Care (DC) Activity/Diet/Wound Care/Special Instructions: [facility] - wound vac - [phone] - Please give to patient prior to discharge. [facility] will put it on the patient once home from the hospital. Patient needs to return old wound vac to [facility] once home. Right knee dressing, saline peroxide gauze packed and covered with ABD Daily. Patient will go to Dr. Arellano' office for antibiotic infusions once a week for 2 weeks starting on: 12/05/18 at 9:30 a.m Discharge Disposition: HOME WITH HOME HEALTH SERVICES <Stewart García E - Last Filed: 12/05/18 07:57> Providers Date of admission: 11/20/18 11:47 Attending physician: aMlik Bui Consults: 11/18/18 19:52 Consult Physician Routine Consulting Provider: Lucas Arellano Consult Reason/Comments: Foot wound Do you want consulting provider notified?: Yes, Notify in am 11/19/18 19:39 Consult Physician Routine Consulting Provider: Neha Farah Consult Reason/Comments: right knee mass Do you want consulting provider notified?: Yes 11/20/18 08:06 Consult Physician Urgent Consulting Provider: Melchor Gotti Consult Reason/Comments: abcsess/mass RLE Do you want consulting provider notified?: Yes 11/20/18 08:08 Consult Physician Routine Consulting Provider: Melchor Gotti Consult Reason/Comments: leg mass/abscess Do you want consulting provider notified?: Yes 11/21/18 11:21 Consult Physician Routine Consulting Provider: Kishore Patel Consult Reason/Comments: wound care Do you want consulting provider notified?: Already Contacted 11/22/18 11:11 Consult Physician Stat Consulting Provider: Devon Marlow Consult Reason/Comments: ICU management Do you want consulting provider notified?: Yes 11/25/18 09:17 Consult Physician Stat Consulting Provider: Fidencio Griggs Consult Reason/Comments: suicidal ideation r/t multiple ongoing heatlth problems and spouse's Do you want consulting provider notified?: Already Contacted 11/25/18 15:30 Consult Physician Urgent Consulting Provider: Tevin Morel Consult Reason/Comments: left foot ulcer Do you want consulting provider notified?: Yes Primary care physician: Malik Bui Hospital Course: i have reviewed the note with RD PROJECT MANAGER Vandana, please refer to the discharge summary written by me on the same day of discharge
--- NOTE | 2018-12-04 21:45 | P.PN ---
Subjective Progress Note Date: 12/04/18 63-year-old male has multiple medical troubles including severe peripheral vascular disease and a history of gout. The patient has been following with the vascular surgeon as well as the wound healing Center regarding a nonhealing ulceration to his left foot. Due to gangrenous changes he did have amputation to the left great toe. An open ulceration continued and there was evidence of exposure of the first metatarsal. Local wound care was being utilized in the wound VAC was being attempted. The patient presented to the wound center where he has been receiving ongoing care, in August the patient however is evidence of extensive gangrenous change of the foot was sent to emergency center at admission through his primary care physician.At that time he was seen by vascular surgery and transmetatarsal amputation was performed with a potential conversion to a [id number] amputation if he did not respond well. He fortunately has been doing relatively well with the negative pressure therapy system being applied to the transmetatarsal amputation site. He did require 1 bony revision because of exposure to metatarsal head. They have been showing some improvement. Gen. the patient was starting to have some improvement but he then developed some significant swelling to his right leg distally related to the prior incision from his vascular bypass. Apparently he was seen in the o utpatient setting and aspiration was performed MRSA was isolated. He doesn't. He was placed on some oral antibiotic therapy but despite this the leg worsened became more tight warm erythematous and painful and he noticed that there was also evidence of some swelling to the more proximal aspect of his thigh at the more cephalad aspect of his bypass. Culture was noticed to have evidence of MRSA and vancomycin has been initiated he is quite uncomfortable. We discussed that his vascular surgeon will need to evaluate. 11/20/2018 the patient continues to feel poorly. He has now been evaluated by vascular surgery and there are plans for exploration of his graft given the marked abnormalities of the been seen. 11/23/2018 the patient is status post surgery where there is evidence of the significant infection to the distal aspect of the right thigh graft, foreign body was removed and cultures are showing evidence of staphylococcal infection as expected. Other than some pain at the site he is improving. 11/24/2018 patient feeling slightly better, however is trying to climb out of bed to get to the bathroom and yet he has not is was to be weightbearing on the right leg with recent surgical intervention. Unclear if his confusion or if he is just being stubborn. 11/30/2018 Patient's mental status has worsened. He is withdrawn and not wanting to eat. He simply wants to go to rehab. He relates there he'll eat and cooperate. It is in the wound VAC needs to be changed and the nurses assisted in this process 12/01/2018 patient is feeling slightly better today. Slightly less withdrawn. He has improved his oral intake somewhat. Pain is well controlled. Except with the dressing change to the abscess of the right leg. Wound VAC seems to be malfunctioning. 12/02/2018 patient is happier that he no longer has a sitter. Wound VAC was changed and working well. Dressing change to the abscess to the right thigh was much less painful today. Looks forward to transitioning to rehab. 12/03/2018 the patient is having some further improvement. There is now notation that he'll be going to a home setting rather than extended care. New plans are in place. 12/04/2018 the patient has been seen by psychiatry and is now very anxious to be discharged home, outpatient antibiotic therapy has been arranged for him to start at the office tomorrow for the treatment of his MRSA infection of the right leg. Home care is arranged for care of his negative pressure therapy. Objective - Vital Signs Vital signs: Vital Signs Temp 97.7 F 12/04/18 13:33 Pulse 76 12/04/18 13:33 Resp 16 12/04/18 13:33 BP 94/58 12/04/18 13:33 Pulse Ox 93 L 12/04/18 13:33 Intake & Output 12/04/18 12/04/18 12/05/18 06:59 18:59 06:59 Intake Total 230 Balance 230 Weight 82.8 kg Intake: Oral 230 Other: Voiding Method Toilet Urinal # Voids 2 2 # Bowel Movements 1 - Exam 63-year-old male quite uncomfortable HEENT: Anicteric conjunctiva are pink and moist nasal mucosa grossly intact without significant lesions, there is no thrush. Neck: The neck is supple without significant lymphadenopathy or thyromegaly. Lungs: Good bilateral air entry without significant crackles or wheezing. There is no significant bronchial sounds. There is no egophony or dullness. Heart: Regular rate and rhythm with an audible S1-S2, no S3 no S4. There is no significant murmur click or rub, PMI was nondisplaced. Abdomen: Positive bowel sounds soft and nontender without palpable masses or organomegaly. There was no guarding or rebound. Extremities: The upper extremities have no evidence of any distinct lesions. Left lower extremity has evidence of the transmetatarsal amputation site. The site has evidence of good granulation without significant erythema swelling or worsening tenderness. The right lower extremity however has the acute change but is now status post surgical debridement by vascular surgery no lymphadenopathy being seen into the right leg or groin. No other significant abnormal lymph nodes are seen. Neuro: Mentation is much improved today. Patient is an active conversation with Doctor as I enter the room. He is comfortable and looks forward to transition to home. - Labs CBC & Chem 7: 12/04/18 06:32 12/04/18 06:32 Labs: Abnormal Lab Results - Last 24 Hours (Table) 12/04/18 12/04/18 Range/Units 06:32 06:32 WBC 11.8 H (3.8-10.6) k/uL RBC 3.29 L (4.30-5.90) m/uL Hgb 9.2 L (13.0-17.5) gm/dL Hct 27.8 L (39.0-53.0) % RDW 17.1 H (11.5-15.5) % Carbon Dioxide 33 H (22-30) mmol/L Creatinine 1.30 H (0.66-1.25) mg/dL Alkaline Phosphatase 132 H (38-126) U/L Albumin 2.9 L (3.5-5.0) g/dL Laboratory Results WBC 11.8 k/uL (3.8-10.6) H 12/04/18 06:32 RBC 3.29 m/uL (4.30-5.90) L 12/04/18 06:32 Hgb 9.2 gm/dL (13.0-17.5) L 12/04/18 06:32 Hct 27.8 % (39.0-53.0) L 12/04/18 06:32 MCV 84.5 fL (80.0-100.0) 12/04/18 06:32 MCH 28.0 pg (25.0-35.0) 12/04/18 06:32 MCHC 33.1 g/dL (31.0-37.0) 12/04/18 06:32 RDW 17.1 % (11.5-15.5) H 12/04/18 06:32 Plt Count 429 k/uL (150-450) 12/04/18 06:32 Neutrophils % 70 % 11/26/18 05:22 Lymphocytes % 16 % 11/26/18 05:22 Monocytes % 6 % 11/26/18 05:22 Eosinophils % 7 % 11/26/18 05:22 Basophils % 0 % 11/26/18 05:22 Neutrophils # 6.8 k/uL (1.3-7.7) 11/26/18 05:22 Lymphocytes # 1.5 k/uL (1.0-4.8) 11/26/18 05:22 Monocytes # 0.6 k/uL (0-1.0) 11/26/18 05:22 Eosinophils # 0.7 k/uL (0-0.7) 11/26/18 05:22 Basophils # 0.0 k/uL (0-0.2) 11/26/18 05:22 Hypochromasia Slight 11/23/18 04:49 Anisocytosis Slight 12/04/18 06:32 PT 10.9 sec (9.0-12.0) 12/04/18 06:32 INR 1.0 (<1.2) 12/04/18 06:32 APTT 33.5 sec (22.0-30.0) H 12/03/18 09:24 Sodium 138 mmol/L (137-145) 12/04/18 06:32 Potassium 3.8 mmol/L (3.5-5.1) 12/04/18 06:32 Chloride 98 mmol/L (98-107) 12/04/18 06:32 Carbon Dioxide 33 mmol/L (22-30) H 12/04/18 06:32 Anion Gap 7 mmol/L 12/04/18 06:32 BUN 14 mg/dL (9-20) 12/04/18 06:32 Creatinine 1.30 mg/dL (0.66-1.25) H 12/04/18 06:32 Est GFR (CKD-EPI)AfAm 68 (>60 ml/min/1.73 sqM) 12/04/18 06:32 Est GFR (CKD-EPI)NonAf 59 (>60 ml/min/1.73 sqM) 12/04/18 06:32 Glucose 86 mg/dL (74-99) 12/04/18 06:32 POC Glucose (mg/dL) 95 mg/dL (75-99) 12/03/18 06:55 POC [employer] Jen Ghotra 12/03/18 06:55 Insulin Level 6.2 mIU/mL (3.0-25.0) 11/24/18 04:10 Calcium 8.9 mg/dL (8.4-10.2) 12/04/18 06:32 Magnesium 1.7 mg/dL (1.6-2.3) 11/26/18 05:22 Total Bilirubin 0.4 mg/dL (0.2-1.3) 12/04/18 06:32 AST 19 U/L (17-59) 12/04/18 06:32 ALT 22 U/L (21-72) 12/04/18 06:32 Alkaline Phosphatase 132 U/L (38-126) H 12/04/18 06:32 Total Protein 6.4 g/dL (6.3-8.2) 12/04/18 06:32 Albumin 2.9 g/dL (3.5-5.0) L 12/04/18 06:32 TSH 3.090 mIU/L (0.465-4.680) 11/22/18 12:03 Stool Occult Blood Positive (Negative) 11/22/18 09:00 Vancomycin Trough 16.2 ug/mL 12/04/18 06:32 Insulin Antibody <0.4 U/mL (0.0-0.4) 11/24/18 04:10 C. difficile (EIA) Intrp Negative (Negative) 11/19/18 19:00 Blood Type O Positive 11/22/18 11:10 Blood Type Confirm O Positive 11/22/18 06:34 Blood Type Recheck No Previous Record 11/22/18 11:10 Bld Type Recheck Status CABO Indicated 11/22/18 11:10 Antibody Screen NEGATIVE 11/22/18 11:10 Crossmatch See Detail 11/22/18 11:10 Spec Expiration Date 11/25/2018 - 2310 11/22/18 11:10 Microbiology 11/22/18 12:03 Blood Blood Culture - Final No Growth after 144 hours 11/21/18 10:31 Leg - Right Anaerobic Culture - Final 11/21/18 10:31 Leg - Right Anaerobic Culture - Final 11/18/18 16:30 Blood Blood Culture - Final No Growth after 144 hours 11/21/18 10:31 Leg - Right Gram Stain - Final 11/21/18 10:31 Leg - Right Wound Culture - Final Presumptive MRSA 11/21/18 10:31 Leg - Right Gram Stain - Final 11/21/18 10:31 Leg - Right Wound Culture - Final Methicillin resist S. aureus Assessment and Plan (1) Leukocytosis Status: Acute Code(s): D72.829 - ELEVATED WHITE BLOOD CELL COUNT, UNSPECIFIED SNOMED Code(s): 516881589 (2) MRSA (methicillin resistant staph aureus) culture positive Narrative/Plan: 63-year-old male who has history of severe peripheral vascular disease having increasing difficulties as of late. He developed a gangrenous changes to the left foot in a transmetatarsal amputation was performed. There is evidence of some bony exposure of the metatarsal head and it appears that her further resection of the f fourth metatarsal head occurred in with the negative pressure therapy system has been showing some steady improvement. The patient were to present to the ER couple days ago with increasing pain and tenderness on the distal aspect of the right leg in conjunction with an area of prior vascular bypass. Aspiration was performed and no evidence of MRSA as per nicely. Vancomycin therapy has been initiated. Vascular surgery consultation is requested. There is concerns to infection of his graft. Is somewhat unusual that there is difficulty at 2 different sites along the graft that are not contiguous. However given his history there is great concern that there could be infection of his graft. Blood cultures are in process. Pain control is being addressed. Patient should limit his ambulation. He is without significant high-grade fevers, he did have leukocytosis at admission that is already improving with hydration and antibiotic therapy. Local care to the transmetatarsal amputation site is requested. 11/20/2018 the patient has been evaluated by his vascular surgeon and there is no marked abnormalities as noted. Plans for surgical exploration of that graft are being made. Antibiotic therapy continues. The patient has some diarrhea with C. diff is comeback is negative. Imodium can be utilized if he is having ongoing diarrhea. Pain control seems to be somewhat adequate. Continue local wound care to the left transmetatarsal amputation site 11/23/2018 the patient started to have some improvement. The surgical site on the right thigh just has some scant serosanguineous drainage. The transmetatarsal amputation site left foot is stable. We'll plan on continuing the antibiotic therapy with vancomycin for treatment of the abscess to the right thigh as well as to the left transmetatarsal amputation site. Appetites improving, no diarrhea C. diff that was checked was negative. 11/24/2018 patient is stable, MRSA infection to the right thigh seems to be improving. Drainage is improving. Lesions are seen. Is being followed by his vascular surgeon. No further surgical interventions are noted at this point in time. We'll need to continue intravenous antibiotic therapy was transferred to the rehab facility. IV access requested. 11/30/2018 the patient is medically improved. Is being readied for transfer to the rehab facility. IV access is being placed. Antibiotic therapy is with vancomycin for the MRSA infection of the transmetatarsal site. The nurses assisted in placing the wound VAC dressing, given the location a foam bridge it is designed and is much more effective and allows an excellent seal. Apparently will be discharged to rehab facility tomorrow. December 01 2018 the patient has had some improvement in his status. He is awake alert and interactive. Looks forward to transition to the extended care facility. IVs in place to receive his vancomycin for the next many weeks. Follow wound healing center. The abscess to the right thigh and packed by the surgeon today. The woundvac appears to be malfunctioning and nursing staff will change the vac 12/02/2018 the patient has an improved mental status today. Still not eating very well. But is doing well with his current local wound care. The wound VAC seems to be functioning well afterwards replacement yesterday. The right thigh abscesses repacked today it was much less painful. We'll plan at least a couple weeks of IV antibiotic therapy at the rehab facility with vancomycin. With the blood work as requested and sent to the office. He will follow the wound healing center after discharge 12/03/2018 the patient is doing relatively well at this time. The negative pressure therapy device to the left foot is functioning well. Is not related that he'll be going to the home setting. Orders for the home wound VAC of now been signed. We'll also need to work with home IV antibiotic therapy if this is an option. Currently receiving vancomycin 1500 mg IV piggyback daily. If necessary income to the office for his daily infusions. The wound VAC to the left transmetatarsal amputation site will be changed by the home care nurse. The right thigh packing will have to also be done by the home care. Potentially this can be transitioned to a woven silver rope or Hydrofera Blue. 12/04/2018 patient is doing somewhat better. He's been seen by psychiatry and is now insistent on going home. Arrangements have all been made. The present to the office tomorrow for his outpatient intravenous antibiotic therapy with vancomycin. Home care will begin the change of his negative pressure therapy to the transmetatarsal amputation site. He will follow-up with the wound center as well as vascular surgery for potential revision of the transmetatarsal amputation. Status: Acute Code(s): Z22.322 - CARRIER OR SUSPECTED CARRIER OF METHICILLIN RESIS STAPH SNOMED Code(s): 136800401 (3) Partial nontraumatic amputation of left foot Status: Acute Code(s): Z89.432 - ACQUIRED ABSENCE OF LEFT FOOT SNOMED Code(s): 857095836
--- NOTE | 2018-12-05 00:25 | P.DS ---
Providers Date of admission: 11/20/18 11:47 Attending physician: Malik Bui Consults: 11/18/18 19:52 Consult Physician Routine Consulting Provider: Lucas Arellano Consult Reason/Comments: Foot wound Do you want consulting provider notified?: Yes, Notify in am 11/19/18 19:39 Consult Physician Routine Consulting Provider: Neha Farah Consult Reason/Comments: right knee mass Do you want consulting provider notified?: Yes 11/20/18 08:06 Consult Physician Urgent Consulting Provider: Melchor Gotti Consult Reason/Comments: abcsess/mass RLE Do you want consulting provider notified?: Yes 11/20/18 08:08 Consult Physician Routine Consulting Provider: Melchor Gotti Consult Reason/Comments: leg mass/abscess Do you want consulting provider notified?: Yes 11/21/18 11:21 Consult Physician Routine Consulting Provider: Kishore Patel Consult Reason/Comments: wound care Do you want consulting provider notified?: Already Contacted 11/22/18 11:11 Consult Physician Stat Consulting Provider: Devon Marlow Consult Reason/Comments: ICU management Do you want consulting provider notified?: Yes 11/25/18 09:17 Consult Physician Stat Consulting Provider: Fidencio Griggs Consult Reason/Comments: suicidal ideation r/t multiple ongoing heatlth problems and spouse's Do you want consulting provider notified?: Already Contacted 11/25/18 15:30 Consult Physician Urgent Consulting Provider: Tevin Morel Consult Reason/Comments: left foot ulcer Do you want consulting provider notified?: Yes Primary care physician: Malik Bui Hospital Course: On-call hospitalist covering for Dr. Bui starting 12/04/18 ( pt has seen by me before on previous coverage) This is a pleasant 63 years old male with past medical history of COPD, right lower extremity deep venous thrombosis, GERD, hearing difficulty, osteoarthritis, peripheral vascular disease, He developed a gangrenous changes to the left foot in a transmetatarsal amputation was performed. He is been in the hospital for about 2 weeks now and his main problems including upper GI bleed and Right medial thigh abscess, status post Right medial thigh exploration with removal of foreign body and drainage of abscess , biopsy showing foreign metallic wire material and adherent gauze material with inflammation, as he is with history of right femoral popliteal artery bypass years ago. wound culture is growing MRSA and pt is been treated with iv vancomycin , pt was recommended to go to [facility] for wound care and rehab , but he was not accepted by his rehab and he did not want to go to another rehab, alternatively pt is been discharged home with home care and pt is going to go to the wound center to get daily iv antitiotic as per ID team recommendation. ID were following the case throughout his stay, and monitoring the pt closely -Patient has been followed by several consultants including pulmonary/critical care, vascular surgery and psychiatrist and the therapy is followed as per their recommendation -also has Severe peripheral vascular disease with Left transmetatarsal amputation wound, wound vac is in place and pt insurance approved his wound vac at home as well -psychiatrist evaluated the pt for suicidal ideations and depression. his depression was partly due to his , whose yearly anniversary of her was 1-3 weeks ago. Patient stated that he wanted to leave the hospital so he could visit his 's grave as he has been doing this on yearly bases.pt is threatened to leave AMA if he is not discharge today, pt is compliant with therapy . At the time of discharge he is denying any suicidal or homicidal ideation, intent or plan, he also denies any access to guns or weapons. Patient denies any auditory, visual hallucinations and denies any paranoia or delusions. pt was cleared by psychiatrist for discharge as it is confirmed to me by the bed-side RN and the daughter Zaina who talked to the psychiatrist over the phone. also psychiatrist Increased Zoloft to 150 mg daily for mood and continued with Remeron 15 mg daily at bedtime for appetite insomnia and mood. -early on his admission he was noted to have dark melanotic colored stool. Hemoglobin initially around 10 on presentation was subsequently found to trend down. he received a one unit of packed red blood cells. Patient underwent EGD with biopsy on 11/23/2018 showing acute duodenitis and chronic active gastritis and negative for H. pylori. after that his hemoglobin remained stable at 8-9 over several days with no abd pain , no n/v , no change in bowel habits and no more blood per rectum. pt is been discharged on PPI which he has at home as confirmed to me by his daughter Zaina. -i talked to his duaghter today Ms. Mahajan over the phone ([phone]) and she confirmed to me that both she and her sister are nurse that can take care of their father especially she is ID nurse and that her father live close to her house . Ms. Mahajan and her are intending to bring her father to liver with them in the near future , also she will be responsible for any copay for his medication . she will take him to his daily iv vancomycin therapy as recommended by ID team starting tomorrow. and she will make sure he follows up with all his doctor and appointments. Pt is found stable and can be discharged to the community but needs follow up as outpt. pt was instructed to follow up with his PCP in one week and with the ID clinic daily starting tomorrow and he agrees. also pt is instructed to f/u with ID team in the clinic , and follow up with GI and vascular surgery in 1-2 week, also pt is threatened if he is not going to be discharged today he will leave AMA which he could do since he was cleared by psychiatrist. it was felt the benefits = of discharge him to the community is more that the risks of signing leaving AMA including and especially his compliance with therapy GENERAL: The patient is alert and oriented x3, not in any acute distress. Well developed, well nourished. CARDIOVASCULAR: S1 and S2 present. No murmurs, rubs, or gallops. PULMONARY: Chest is clear to auscultation, no wheezing or crackles. ABDOMEN: Soft, nontender, nondistended, normoactive bowel sounds. No palpable organomegaly. MUSCULOSKELETAL: No joint swelling or deformity. -EXTREMITIES: No cyanosis, clubbing, or pedal edema. Right thigh wound is healing with dressing is in place. left foot wound is healing with wound vac is in place NEUROLOGICAL: Gross neurological examination did not reveal any focal deficits. SKIN: No rashes. time spent is more than 35 min Patient Condition at Discharge: Fair Plan - Discharge Summary Discharge Rx Participant: No New Discharge Prescriptions: New Vancomycin 1,500 mg IVPB Q24HR #14 bag Nicotine 21Mg/24Hr Patch [Habitrol] 1 patch TRANSDERM DAILY #30 patch HYDROcodone/APAP 10-325MG [Ama 10-325] 1 each PO Q8H PRN #10 tab PRN Reason: Pain Mirtazapine [Remeron] 15 mg PO HS #30 tab Sertraline [Zoloft] 150 mg PO DAILY #30 tab Continue Metoprolol Tartrate 25 mg PO DAILY Probenecid/Colchicine [Probenecid-Colchicine Tabs] 1 tab PO BID Zinc 50 mg PO DAILY Omeprazole 20 mg PO DAILY@0600 Lactose-Reduced Food [Ensure Plus] 237 ml PO TID Magnesium Oxide 400 mg PO DAILY Gabapentin [Neurontin] 300 mg PO TID PRN PRN Reason: Pain Diphenox-Atrop 2.5-0.025 mg [Lomotil] 1 tab PO Q6HR PRN PRN Reason: Diarrhea Atorvastatin [Lipitor] 20 mg PO HS Discontinued Diazepam [Valium] 10 mg PO BID@0900,2100 Sertraline [Zoloft] 50 mg PO DAILY Discharge Medication List Metoprolol Tartrate 25 mg PO DAILY 12/15/14 [History] Probenecid/Colchicine [Probenecid-Colchicine Tabs] 1 tab PO BID 07/05/18 [History] Omeprazole 20 mg PO DAILY@0600 08/24/18 [History] Zinc 50 mg PO DAILY 08/24/18 [History] Lactose-Reduced Food [Ensure Plus] 237 ml PO TID 09/14/18 [History] Magnesium Oxide 400 mg PO DAILY 09/14/18 [History] Atorvastatin [Lipitor] 20 mg PO HS 11/18/18 [History] Diphenox-Atrop 2.5-0.025 mg [Lomotil] 1 tab PO Q6HR PRN 11/18/18 [History] Gabapentin [Neurontin] 300 mg PO TID PRN 11/18/18 [History] Vancomycin 1,500 mg IVPB Q24HR #14 bag 12/03/18 [Rx] HYDROcodone/APAP 10-325MG [Ama 10-325] 1 each PO Q8H PRN #10 tab 12/04/18 [Rx] Mirtazapine [Remeron] 15 mg PO HS #30 tab 12/04/18 [Rx] Nicotine 21Mg/24Hr Patch [Habitrol] 1 patch TRANSDERM DAILY #30 patch 12/04/18 [Rx] Sertraline [Zoloft] 150 mg PO DAILY #30 tab 12/04/18 [Rx] Follow up Appointment(s)/Referral(s): Malik Bui MD [Primary Care Provider] - 1-2 days Terell Hawthorne DO [Doctor of Osteopathic Medicine] - 1 Week [facility], [NON-STAFF] - [facility],Infusion [NON-STAFF] - Elver Wheeler MD [STAFF PHYSICIAN] - 1 Week Ambulatory/Diagnostic Orders: Basic Metabolic Panel [LAB.AMB] Location: None Selected Complete Blood Count w/diff [LAB.AMB] Location: None Selected Miscellaneous Lab Order [LAB.AMB] Location: None Selected Patient Instructions/Handouts: Acute Wound Care (DC) Activity/Diet/Wound Care/Special Instructions: [facility] - wound vac - [phone] - Please give to patient prior to discharge. Home Care will put it on the patient once home from the hospital. Patient needs to return old wound vac to [facility] once home. Right knee dressing, saline peroxide gauze packed and covered with ABD Daily. Patient will go to Dr. Arellano' office for antibiotic infusions once a week for 2 weeks starting on: 12/05/18 at 9:30 a.m Discharge Disposition: HOME WITH HOME HEALTH SERVICES
[2018-12-05] MEDS ORDERED: SERTRALINE 100 MG TAB PO SCH (09:00)
[2018-12-06] MEDS ORDERED: VANCOMYCIN 1,500 MG in SODIUM CHLORIDE 0.9% 250 ML IVPB SCH ×2
== END 2018-12-04 18:32 | disposition home health service (06) | DRG 907 ==
LOC: EC 13:47 → 4MS4W 15:58 → OBSVTOIN 11-20 11:47 → 3SCARD 11-21 09:22 → 2SICU 11-22 12:23 → 4SSUR 11-26 11:37
PROVIDERS: ADMIT Family Medicine; ATTEND Family Medicine
PROC: B42H1ZZ Computerized Tomography (CT Scan) of Bilateral Lower Extremity Arteries using Low Osmolar Contrast (ICD-10-PCS; 2018-11-20)
PROC: 0J9L0ZX Drainage of Right Upper Leg Subcutaneous Tissue and Fascia, Open Approach, Diagnostic (ICD-10-PCS; 2018-11-21)
PROC: 0KCQ0ZZ Extirpation of Matter from Right Upper Leg Muscle, Open Approach (ICD-10-PCS; principal; 2018-11-21 09:00)
PROC: 30233N1 Transfusion of Nonautologous Red Blood Cells into Peripheral Vein, Percutaneous Approach (ICD-10-PCS; 2018-11-22)
PROC: 0DB98ZX Excision of Duodenum, Via Natural or Artificial Opening Endoscopic, Diagnostic (ICD-10-PCS; 2018-11-23)
PROC: 0DB68ZX Excision of Stomach, Via Natural or Artificial Opening Endoscopic, Diagnostic (ICD-10-PCS; 2018-11-23)
PROC: 02HV33Z Insertion of Infusion Device into Superior Vena Cava, Percutaneous Approach (ICD-10-PCS; 2018-12-04)
DX: T81.69XA Other acute reaction to foreign substance accidentally left during a procedure, initial encounter (principal); K25.4 Chronic or unspecified gastric ulcer with hemorrhage; A41.02 Sepsis due to Methicillin resistant Staphylococcus aureus; D62 Acute posthemorrhagic anemia; J96.11 Chronic respiratory failure with hypoxia; L02.415 Cutaneous abscess of right lower limb; L03.115 Cellulitis of right lower limb; R45.851 Suicidal ideations; K44.9 Diaphragmatic hernia without obstruction or gangrene; K29.50 Unspecified chronic gastritis without bleeding; F10.10 Alcohol abuse, uncomplicated; F12.10 Cannabis abuse, uncomplicated; F17.210 Nicotine dependence, cigarettes, uncomplicated; F32.9 Major depressive disorder, single episode, unspecified; F41.9 Anxiety disorder, unspecified; G47.00 Insomnia, unspecified; G89.29 Other chronic pain; H91.90 Unspecified hearing loss, unspecified ear; I73.9 Peripheral vascular disease, unspecified; J44.9 Chronic obstructive pulmonary disease, unspecified; K21.9 Gastro-esophageal reflux disease without esophagitis; K29.80 Duodenitis without bleeding; L97.529 Non-pressure chronic ulcer of other part of left foot with unspecified severity; M19.90 Unspecified osteoarthritis, unspecified site; Z78.1 Physical restraint status; Z63.4 Disappearance and death of family member; Z79.899 Other long term (current) drug therapy; Z82.49 Family history of ischemic heart disease and other diseases of the circulatory system; Z86.14 Personal history of Methicillin resistant Staphylococcus aureus infection; Z86.718 Personal history of other venous thrombosis and embolism; Z87.01 Personal history of pneumonia (recurrent); Z89.432 Acquired absence of left foot; Z99.81 Dependence on supplemental oxygen; Z89.421 Acquired absence of other right toe(s); Z60.2 Problems related to living alone
CPT/HCPCS: 36415; 36573; 43239; 70450; 71045; 80048; 80053; 80202; 82272; 82565; 82947; 83525; 83735; 84443; 85025; 85027; 85610; 85730; 86337; 86850; 86900; 86901; 86920; 87040; 87070; 87075; 87077; 87186; 87205; 87324; 88304; 88305; 88342; 93970; 94760; 96361; 96365; 96375; 99285

== ENCOUNTER 2019-02-09 14:27 | Inpatient (IN) | payer MEDICARE ==
[2019-02-09] MEDS ORDERED: SODIUM CHLORIDE 0.9% 1,000 ML IV ONE (15:45)
[2019-02-09 16:28] LABS: ALT 30 U/L (21-72); AST 55 U/L (17-59); African American GFR (CKD) >90 (>60 ml/min/1.73 sqM); Albumin 3.1 g/dL (3.5-5.0); Alkaline Phosphatase 91 U/L (38-126); Anion Gap 7 mmol/L; Blood Urea Nitrogen 21 mg/dL (9-20); Calcium 8.4 mg/dL (8.4-10.2); Carbon Dioxide 33 mmol/L (22-30); Chloride 100 mmol/L (98-107); Glucose 89 mg/dL (74-99); Non-African American GFR(CKD) 80 (>60 ml/min/1.73 sqM); Potassium 3.6 mmol/L (3.5-5.1); Sodium 140 mmol/L (137-145); Total Bilirubin 0.5 mg/dL (0.2-1.3); Total Protein 6.8 g/dL (6.3-8.2)
[2019-02-09 16:50] LABS: Basophils # (A) 0.1 k/uL (0-0.2); Basophils % (A) 1 %; Eosinophils # (A) 0.1 k/uL (0-0.7); Eosinophils % (A) 2 %; HCT 38.5 % (39.0-53.0); HGB 12.1 gm/dL (13.0-17.5); Hypochromasia Moderate; Lymphocytes # (A) 1.4 k/uL (1.0-4.8); Lymphocytes % (A) 26 %; MCH 25.8 pg (25.0-35.0); MCHC 31.5 g/dL (31.0-37.0); Mean Platelet Volume 7.4; Monocytes # (A) 0.5 k/uL (0-1.0); Monocytes % (A) 9 %; Neutrophils # (A) 3.1 k/uL (1.3-7.7); Neutrophils % (A) 60 %; Platelet Count 386 k/uL (150-450); RDW 14.3 % (11.5-15.5); WBC 5.2 k/uL (3.8-10.6)
[2019-02-09 16:56] LABS: MCV 81.9 fL (80.0-100.0)
[2019-02-09] MEDS: SODIUM CHLORIDE 0.9% 1,000 ML IV SCH (17:34)
[2019-02-09] MEDS: GABAPENTIN 300 MG CAP PO SCH ×2 (17:34→21:30)
[2019-02-09] MEDS: HYDROcodone/APAP 7.5-325MG 1 EACH TAB PO PRN ×2 (17:34→23:19)
[2019-02-09] MEDS: NICOTINE 21MG/24HR PATCH TRANSDERM SCH (21:29)
[2019-02-09] MEDS: ATORVASTATIN 20 MG TAB PO SCH (21:29)
[2019-02-09] MEDS: DIAZEPAM 5 MG TAB PO SCH (21:29)
[2019-02-10] MEDS ORDERED: VANCOMYCIN IV PER PHARMACY 1 EACH MISC MISCELLANE PRN (00:11)
[2019-02-10] MEDS: LEVOFLOXACIN 500MG-D5W PMX 500 MG in DEXTROSE/WATER 1 100ML.BAG IVPB SCH ×2 (01:58→23:30)
[2019-02-10] MEDS: VANCOMYCIN 1,250 MG in SODIUM CHLORIDE 0.9% 250 ML IVPB SCH ×3 (02:30→15:19)
[2019-02-10] MEDS: SODIUM CHLORIDE 0.9% 1,000 ML IV SCH ×3 (03:03→15:22)
[2019-02-10] MEDS: HYDROcodone/APAP 7.5-325MG 1 EACH TAB PO PRN ×3 (04:28→23:07)
--- NOTE | 2019-02-10 08:23 | P.GSCN ---
History of Present Illness Consult date: 02/10/19 History of present illness: The patient is a 64-year-old male well known to our service for previous left transmetatarsal amputation as well as incision and debridement of right thigh wound for retained foreign body. He was recently seen and wound care along with Dr. Morel's office. He was thought to need further surgical revision of his left transmetatarsal amputation due to exposed bone. He was admitted to the hospital. This time he denies any fevers, chills, nausea, vomiting or diarrhea. He does have a new cough. He denies any changes in pain of his extremity. Review of Systems 14 point review of systems performed, pertinent positives and negatives per the HPI Past Medical History Past Medical History: COPD, Deep Vein Thrombosis (DVT), GERD/Reflux, Hearing Disorder / Deafness, Osteoarthritis (OA), Pneumonia, Vascular Disorder Additional Past Medical History / Comment(s): COPD, chronic hypoxic respiratory failure maintained on oxygen 3 L per minute nasal cannula, previous DVT of the right lower extremity thousand and 8, severe peripheral vascular disease, osteomyelitis of the toe, previous left big toe amputation and previous history of left transmetatarsal amputation History of Any Multi-Drug Resistant Organisms: CRE, MRSA Year Discovered:: 11/21/18-MRSA MDRO Source:: Right Leg Past Surgical History: No Surgical Hx Reported, Orthopedic Surgery Additional Past Surgical History / Comment(s): Bilateral femoral gluteal bypass surgery, arthroscopic left knee surgery, bilateral inguinal hernia repair, left transmetatarsal amputation of the great toe, Removal right pinky bone Past Anesthesia/Blood Transfusion Reactions: No Reported Reaction Past Psychological History: Anxiety Additional Psychological History / Comment(s): pt indepedant. 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 Patient is a recent is having difficulties with the adjustment Smoking Status: Current every day smoker Past Alcohol Use History: None Reported Additional Past Alcohol Use History / Comment(s): smoker since age 18 (1972), 1 PPD Past Drug Use History: Marijuana Additional Drug Use History / Comment(s): occ use but none in 5-6 months - Past Family History Brother(s) Family Medical History: Coronary Artery Disease (CAD) Additional Family Medical History / Comment(s): heart attack/cabg Father Family Medical History: No Reported History Mother Family Medical History: Deep Vein Thrombosis (DVT) Medications and Allergies Home Medications Medication Instructions Recorded Confirmed Type Atorvastatin [Lipitor] 20 mg PO HS 11/18/18 02/09/19 History Gabapentin [Neurontin] 300 mg PO TID 11/18/18 02/09/19 History Sertraline [Zoloft] 150 mg PO DAILY #30 tab 12/04/18 02/09/19 Rx Cetirizine HCl [Zyrtec] 10 mg PO DAILY 02/09/19 02/09/19 History Diazepam [Valium] 10 mg PO BID 02/09/19 02/09/19 History HYDROcodone/APAP 7.5-325MG [[place] 1 tab PO Q6HR PRN 02/09/19 02/09/19 History 7.5-325] Allergies Allergy/AdvReac Type Severity Reaction Status Date / Time hydromorphone [From Dilaudid] AdvReac Hallucinati Verified 11/18/18 15:53 ons Surgical - Exam Vital Signs Temp Pulse Resp BP Pulse Ox 97.4 F L 81 20 141/78 98 02/09/19 15:46 02/09/19 15:46 02/09/19 15:46 02/09/19 15:46 02/09/19 15:46 The patient is a pleasant cooperative male in no acute distress. HEENT is normocephalic, atraumatic, excellent motion intact. Neck is supple, trachea is midline. Heart is regular in rate and rhythm at this time. Lungs with coarse upper respiratory sounds, no respiratory distress. Abdomen is soft, nontender and nondistended. Right lower extremity warm and dry, healed right thigh wound. Left lower extremity dressing in place, there is some serous drainage on the lateral portion. Normal mood and affect. Cranial nerves II through XII grossly intact. Results - Labs 02/09/19 16:03 02/09/19 16:03 Abnormal Lab Results - Last 24 Hours (Table) 02/09/19 02/09/19 Range/Units 16:03 16:03 Hgb 12.1 L (13.0-17.5) gm/dL Hct 38.5 L (39.0-53.0) % Carbon Dioxide 33 H (22-30) mmol/L BUN 21 H (9-20) mg/dL Albumin 3.1 L (3.5-5.0) g/dL Diabetes panel 02/09/19 Range/Units 16:03 Sodium 140 (137-145) mmol/L Potassium 3.6 (3.5-5.1) mmol/L Chloride 100 (98-107) mmol/L Carbon Dioxide 33 H (22-30) mmol/L BUN 21 H (9-20) mg/dL Creatinine 1.01 (0.66-1.25) mg/dL Glucose 89 (74-99) mg/dL Calcium 8.4 (8.4-10.2) mg/dL AST 55 (17-59) U/L ALT 30 (21-72) U/L Alkaline Phosphatase 91 (38-126) U/L Total Protein 6.8 (6.3-8.2) g/dL Albumin 3.1 L (3.5-5.0) g/dL Calcium panel 02/09/19 Range/Units 16:03 Calcium 8.4 (8.4-10.2) mg/dL Albumin 3.1 L (3.5-5.0) g/dL Pituitary panel 02/09/19 Range/Units 16:03 Sodium 140 (137-145) mmol/L Potassium 3.6 (3.5-5.1) mmol/L Chloride 100 (98-107) mmol/L Carbon Dioxide 33 H (22-30) mmol/L BUN 21 H (9-20) mg/dL Creatinine 1.01 (0.66-1.25) mg/dL Glucose 89 (74-99) mg/dL Calcium 8.4 (8.4-10.2) mg/dL Adrenal panel 02/09/19 Range/Units 16:03 Sodium 140 (137-145) mmol/L Potassium 3.6 (3.5-5.1) mmol/L Chloride 100 (98-107) mmol/L Carbon Dioxide 33 H (22-30) mmol/L BUN 21 H (9-20) mg/dL Creatinine 1.01 (0.66-1.25) mg/dL Glucose 89 (74-99) mg/dL Calcium 8.4 (8.4-10.2) mg/dL Total Bilirubin 0.5 (0.2-1.3) mg/dL AST 55 (17-59) U/L ALT 30 (21-72) U/L Alkaline Phosphatase 91 (38-126) U/L Total Protein 6.8 (6.3-8.2) g/dL Albumin 3.1 L (3.5-5.0) g/dL Assessment and Plan Assessment: Nonhealing left lower extremity wound, status post transmetatarsal amputation COPD History of DVT Chronic bronchitis Plan: At this point we'll plan to take the patient to the operating room today for revision of his transmetatarsal amputation on the left. We will clean out to healthy-appearing tissue and go forward from there. He may need skin substitute or stem cell placement in the future
[2019-02-10] MEDS: DIAZEPAM 5 MG TAB PO SCH ×2 (08:25→21:01)
[2019-02-10] MEDS: GABAPENTIN 300 MG CAP PO SCH ×3 (08:25→21:01)
[2019-02-10] MEDS: NICOTINE 21MG/24HR PATCH TRANSDERM SCH (08:25)
[2019-02-10] MEDS: LORATADINE 10 MG TAB PO SCH (08:25)
[2019-02-10] MEDS: SERTRALINE 100 MG TAB PO SCH (08:26)
[2019-02-10] MEDS ORDERED: IV FLUID CONTINUATION 1,000 ML IV ONE ×2 (11:27)
[2019-02-10] MEDS ORDERED: SUCCINYLCHOLINE CHLORIDE 100 MG/5 ML SYR IV ONE (12:42)
[2019-02-10] MEDS ORDERED: LIDOCAINE 1% INJ 10MG/ML (20 ML MDV) ONE (12:42)
[2019-02-10] MEDS ORDERED: MIDAZOLAM 2 MG/2 ML VIAL ONE (12:42)
[2019-02-10] MEDS ORDERED: fentaNYL (PF) 50 MCG/ML 2 ML AMP ONE (12:42)
[2019-02-10] MEDS ORDERED: PROPOFOL 10 MG/ML 20 ML VIAL IV ONE (12:42)
[2019-02-10] MEDS ORDERED: LACTATED RINGERS 1,000 ML IV ONE (14:03)
[2019-02-10] MEDS: fentaNYL (PF) 50 MCG/ML 2 ML AMP IVP ONE ×2 (14:28→14:40)
--- NOTE | 2019-02-10 14:30 | P.OP ---
Date of Procedure: 02/10/19 Description of Procedure: Preoperative diagnosis: Nonhealing left foot wound, previous transmetatarsal amputation Postoperative diagnosis: Same Procedure: Revision of left transmetatarsal amputation placement of wound VAC Surgeon: Neha Farah D.O. EBL: 10 mL IV fluids: See anesthesia records Urine output: Not measured Drains: None, wound VAC in place Complications: None immediately apparent Condition: Stable, extubated to PACU Operative indication and findings: The patient is a 64-year-old male with a previous left transmetatarsal amputation that has not been healing. He has adequate blood flow to palpable dorsalis pedis pulse, he has been receiving wound care on an outpatient basis but continues to have bony exposure at the TMA site therefore he presents today for revision. Risks and benefits were discussed. He seemingly understands and is willing to proceed Procedure in detail: The patient was taken to the operating room and placed in supine position. After adequate general anesthesia, the left lower extremity was prepped and draped in usual sterile fashion and a preprocedure timeout was performed with all parties in agreement. Utilizing the electrocautery and sharp scalpel the areas of bony exposure were cleared free from its surrounding tissues along with a Dodd elevator. These areas were dissected back to allow for further transection of the bone. There was a pocket of pus at the plantar portion medially. This was cultured. It was open all the way to allow for com plete evacuation. The bones that all areas were cut back to the level essentially removing the entirety of the metatarsals themselves to attempt freeing tissue for possible closure. At that point a rasp was utilized to smooth out the bone the area was then copiously irrigated of all bony fragments. Hemostasis was achieved electrocautery. Utilizing a 2-0 nylon the medial and lateral portions were reapproximated. There was a wound cavity that remained measuring 8 x 6 x 4 cm. A small wound VAC was placed. It was too good suction. The patient will need come back to the operating room for further therapy and hopeful stem cell placement versus skin substitutes.
--- NOTE | 2019-02-10 20:16 | P.CONS ---
History of Present Illness - Reason for Consult Consult date: 02/10/19 - Chief Complaint Painful left foot - History of Present Illness 63-year-old male has multiple medical troubles including severe peripheral vascular disease and a history of gout. The patient has been following with the vascular surgeon as well as the wound healing Center regarding a nonhealing ulceration to his left foot. Due to gangrenous changes he did have amputation to the left great toe. An open ulceration continued and there was evidence of exposure of the first metatarsal. Local wound care was being utilized in the wound VAC was being attempted. The patient presented to the wound center where he has been receiving ongoing care, in August the patient however is evidence of extensive gangrenous change of the foot was sent to emergency center at admission through his primary care physician.At that time he was seen by vascular surgery and transmetatarsal amputation was performed with a potential conversion to a [id number] amputation if he did not respond well. He fortunately has been doing relatively well with the negative pressure therapy system being applied to the transmetatarsal amputation site. He did require 1 bony revision because of exposure to metatarsal head. They have been showing some improvement. Gen. the patient was starting to have some improvement but he then developed some significant swelling to his right leg distally related to the prior incision from his vascular bypass. Apparently he was seen in the outpatient setting and aspiration was performed MRSA was isolated. He doesn't. He was placed on some oral antibiotic therapy but despite this the leg worsened became more tight warm erythematous and painful and he noticed that there was also evidence of some swelling to the more proximal aspect of his thigh at the more cephalad aspect of his bypass. The patient was found no evidence of abscess and retained foreign material that after surgical debridement and a course of antibiotic therapy eventually improved. Overs continue to have ongoing difficulties to the left foot transmetatarsal amputation site. There is again some bony exposure evidence of ongoing infection and constantly is brought to hospital and seen by the vascular surgeon in he's been taking the operative the debridement of the transmetatarsal site. Some bony debridement did occur sensor was bony exposure. The patient is postoperative and seems to be doing relatively well. He has had ongoing weight loss, his mood is poor after the of his . Review of Systems HEENT:Denies headache or acute visual change. Denies sinus or mouth discomforts. Denies neck stiffness or pain. Denies significant oral cavity p ain. Denies difficulty on swallowing. Lungs: Denies significant shortness of breath, cough, sputum production, or hemoptysis. Cardiovascular: Denies significant shortness of breath, chest pain, chest wall pain, orthopnea, dyspnea on exertion, syncope Gastrointestinal:Denies nausea, vomiting, diarrhea, constipation, hematemesis, melena, hematochezia. No no significant change of bowel habit noticed. Musculoskeletal: denies significant myalgias or arthralgias. No new joint swelling. Denies new back pain. Skin: Pain and swelling of the left foot Neuro: Denies headache or visual change. Denies any new onset weakness or difficulty with ambulation. Denies falls or seizures. Psychiatric:Denies anxiety or depression. Endocrine: Progressive fatigue and weight loss Past Medical History Past Medical History: COPD, Deep Vein Thrombosis (DVT), GERD/Reflux, Hearing Disorder / Deafness, Osteoarthritis (OA), Pneumonia, Vascular Disorder Additional Past Medical History / Comment(s): COPD, chronic hypoxic respiratory failure maintained on oxygen 3 L per minute nasal cannula, previous DVT of the right lower extremity thousand and 8, severe peripheral vascular disease, osteomyelitis of the toe, previous left big toe amputation and previous history of left transmetatarsal amputation History of Any Multi-Drug Resistant Organisms: CRE, MRSA Year Discovered:: 11/21/18-MRSA MDRO Source:: Right Leg Past Surgical History: No Surgical Hx Reported, Orthopedic Surgery Additional Past Surgical History / Comment(s): Bilateral femoral gluteal bypass surgery, arthroscopic left knee surgery, bilateral inguinal hernia repair, left transmetatarsal amputation of the great toe, Removal right pinky bone Past Anesthesia/Blood Transfusion Reactions: No Reported Reaction Past Psychological History: Anxiety Additional Psychological History / Comment(s): pt indepedant. 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 Patient is a recent is having difficulties with the adjustment Smoking Status: Current every day smoker Past Alcohol Use History: None Reported Additional Past Alcohol Use History / Comment(s): smoker since age 18 (1972), 1 PPD Past Drug Use History: Marijuana Additional Drug Use History / Comment(s): occ use but none in 5-6 months - Past Family History Brother(s) Family Medical History: Coronary Artery Disease (CAD) Additional Family Medical History / Comment(s): heart attack/cabg Father Family Medical History: No Reported History Mother Family Medical History: Deep Vein Thrombosis (DVT) Medications and Allergies Home Medications and Allergies Comment(s): Laboratory Results WBC 5.2 k/uL (3.8-10.6) 02/09/19 16:03 RBC 4.70 m/uL (4.30-5.90) 02/09/19 16:03 Hgb 12.1 gm/dL (13.0-17.5) L 02/09/19 16:03 Hct 38.5 % (39.0-53.0) L 02/09/19 16:03 MCV 81.9 fL (80.0-100.0) D 02/09/19 16:03 MCH 25.8 pg (25.0-35.0) 02/09/19 16:03 MCHC 31.5 g/dL (31.0-37.0) 02/09/19 16:03 RDW 14.3 % (11.5-15.5) 02/09/19 16:03 Plt Count 386 k/uL (150-450) 02/09/19 16:03 Neutrophils % 60 % 02/09/19 16:03 Lymphocytes % 26 % 02/09/19 16:03 Monocytes % 9 % 02/09/19 16:03 Eosinophils % 2 % 02/09/19 16:03 Basophils % 1 % 02/09/19 16:03 Neutrophils # 3.1 k/uL (1.3-7.7) 02/09/19 16:03 Lymphocytes # 1.4 k/uL (1.0-4.8) 02/09/19 16:03 Monocytes # 0.5 k/uL (0-1.0) 02/09/19 16:03 Eosinophils # 0.1 k/uL (0-0.7) 02/09/19 16:03 Basophils # 0.1 k/uL (0-0.2) 02/09/19 16:03 Hypochromasia Moderate 02/09/19 16:03 Sodium 140 mmol/L (137-145) 02/09/19 16:03 Potassium 3.6 mmol/L (3.5-5.1) 02/09/19 16:03 Chloride 100 mmol/L (98-107) 02/09/19 16:03 Carbon Dioxide 33 mmol/L (22-30) H 02/09/19 16:03 Anion Gap 7 mmol/L 02/09/19 16:03 BUN 21 mg/dL (9-20) H 02/09/19 16:03 Creatinine 1.01 mg/dL (0.66-1.25) 02/09/19 16:03 Est GFR (CKD-EPI)AfAm >90 (>60 ml/min/1.73 sqM) 02/09/19 16:03 Est GFR (CKD-EPI)NonAf 80 (>60 ml/min/1.73 sqM) 02/09/19 16:03 Glucose 89 mg/dL (74-99) 02/09/19 16:03 Plasma Lactic Acid [place] 1.7 mmol/L (0.7-2.0) 02/09/19 16:03 Calcium 8.4 mg/dL (8.4-10.2) 02/09/19 16:03 Total Bilirubin 0.5 mg/dL (0.2-1.3) 02/09/19 16:03 AST 55 U/L (17-59) 02/09/19 16:03 ALT 30 U/L (21-72) 02/09/19 16:03 Alkaline Phosphatase 91 U/L (38-126) 02/09/19 16:03 Total Protein 6.8 g/dL (6.3-8.2) 02/09/19 16:03 Albumin 3.1 g/dL (3.5-5.0) L 02/09/19 16:03 Microbiology 02/10/19 13:46 Foot - Left Wound Culture - Preliminary 02/10/19 13:46 Foot - Left Anaerobic Culture - Preliminary Home Medications Medication Instructions Recorded Confirmed Type Atorvastatin [Lipitor] 20 mg PO HS 11/18/18 02/09/19 History Gabapentin [Neurontin] 300 mg PO TID 11/18/18 02/09/19 History Sertraline [Zoloft] 150 mg PO DAILY #30 tab 12/04/18 02/09/19 Rx Cetirizine HCl [Zyrtec] 10 mg PO DAILY 02/09/19 02/09/19 History Diazepam [Valium] 10 mg PO BID 02/09/19 02/09/19 History HYDROcodone/APAP 7.5-325MG [[place] 1 tab PO Q6HR PRN 02/09/19 02/09/19 History 7.5-325] Allergies Allergy/AdvReac Type Severity Reaction Status Date / Time hydromorphone [From Dilaudid] AdvReac Hallucinati Verified 11/18/18 15:53 ons Physical Exam Vitals: Vital Signs Temp Pulse Pulse Resp BP Pulse Ox 02/10/19 16:47 111/75 02/10/19 16:39 83 110/64 02/10/19 16:00 78 16 96/57 97 02/10/19 15:37 99/59 02/10/19 15:35 82 16 105/64 99 02/10/19 14:45 80 16 112/61 100 02/10/19 14:32 82 16 117/61 100 02/10/19 14:15 87 16 150/97 100 02/10/19 14:09 98.2 F 95 16 163/78 100 02/10/19 11:02 98.1 F 76 18 116/62 96 02/10/19 08:00 98.0 F 69 20 109/70 95 02/10/19 04:00 98.4 F 82 19 109/60 98 02/10/19 00:00 98.5 F 87 18 110/57 95 Intake and Output 02/10/19 02/10/19 02/10/19 06:59 14:59 22:59 Intake Total 700 Output Total 300 15 Balance -300 685 Intake: IV 700 Output: Urine 300 Estimated Blood Loss 15 Other: Voiding Method Urinal # Voids 1 0 0 # Bowel Movements 0 Weight 67.9 kg 67.9 kg 63-year-old male quite uncomfortable HEENT: Anicteric conjunctiva are pink and moist nasal mucosa grossly intact without significant lesions, there is no thrush. Neck: The neck is supple without significant lymphadenopathy or thyromegaly. Lungs: Good bilateral air entry without significant crackles or wheezing. There is no significant bronchial sounds. There is no egophony or dullness. Heart: Regular rate and rhythm with an audible S1-S2, no S3 no S4. There is no significant murmur click or rub, PMI was nondisplaced. Abdomen: Positive bowel sounds soft and nontender without palpable masses or organomegaly. There was no guarding or rebound. Extremities: The upper extremities have no evidence of any distinct lesions. The right lower extremity has healed from the recent infections Left lower extremity has evidence of the transmetatarsal amputation site. There is a postoperative wound VAC is in place is not removed, the surgeon notes further bony debridement. The swelling erythema to the foot seems to be improved from the last evaluation. Neuro: Awake alert oriented to person place and time. There are no acute new gross focal sensory motor deficits. Results CBC & Chem 7: 02/09/19 16:03 02/09/19 16:03 Labs: Microbiology - Last 24 Hours (Table) 02/10/19 13:46 Wound Culture - Preliminary Foot - Left 02/10/19 13:46 Anaerobic Culture - Preliminary Foot - Left Laboratory Results WBC 5.2 k/uL (3.8-10.6) 02/09/19 16:03 RBC 4.70 m/uL (4.30-5.90) 02/09/19 16:03 Hgb 12.1 gm/dL (13.0-17.5) L 02/09/19 16:03 Hct 38.5 % (39.0-53.0) L 02/09/19 16:03 MCV 81.9 fL (80.0-100.0) D 02/09/19 16:03 MCH 25.8 pg (25.0-35.0) 02/09/19 16:03 MCHC 31.5 g/dL (31.0-37.0) 02/09/19 16:03 RDW 14.3 % (11.5-15.5) 02/09/19 16:03 Plt Count 386 k/uL (150-450) 02/09/19 16:03 Neutrophils % 60 % 02/09/19 16:03 Lymphocytes % 26 % 02/09/19 16:03 Monocytes % 9 % 02/09/19 16:03 Eosinophils % 2 % 02/09/19 16:03 Basophils % 1 % 02/09/19 16:03 Neutrophils # 3.1 k/uL (1.3-7.7) 02/09/19 16:03 Lymphocytes # 1.4 k/uL (1.0-4.8) 02/09/19 16:03 Monocytes # 0.5 k/uL (0-1.0) 02/09/19 16:03 Eosinophils # 0.1 k/uL (0-0.7) 02/09/19 16:03 Basophils # 0.1 k/uL (0-0.2) 02/09/19 16:03 Hypochromasia Moderate 02/09/19 16:03 Sodium 140 mmol/L (137-145) 02/09/19 16:03 Potassium 3.6 mmol/L (3.5-5.1) 02/09/19 16:03 Chloride 100 mmol/L (98-107) 02/09/19 16:03 Carbon Dioxide 33 mmol/L (22-30) H 02/09/19 16:03 Anion Gap 7 mmol/L 02/09/19 16:03 BUN 21 mg/dL (9-20) H 02/09/19 16:03 Creatinine 1.01 mg/dL (0.66-1.25) 02/09/19 16:03 Est GFR (CKD-EPI)AfAm >90 (>60 ml/min/1.73 sqM) 02/09/19 16:03 Est GFR (CKD-EPI)NonAf 80 (>60 ml/min/1.73 sqM) 02/09/19 16:03 Glucose 89 mg/dL (74-99) 02/09/19 16:03 Plasma Lactic Acid [place] 1.7 mmol/L (0.7-2.0) 02/09/19 16:03 Calcium 8.4 mg/dL (8.4-10.2) 02/09/19 16:03 Total Bilirubin 0.5 mg/dL (0.2-1.3) 02/09/19 16:03 AST 55 U/L (17-59) 02/09/19 16:03 ALT 30 U/L (21-72) 02/09/19 16:03 Alkaline Phosphatase 91 U/L (38-126) 02/09/19 16:03 Total Protein 6.8 g/dL (6.3-8.2) 02/09/19 16:03 Albumin 3.1 g/dL (3.5-5.0) L 02/09/19 16:03 Microbiology 02/10/19 13:46 Foot - Left Wound Culture - Preliminary 02/10/19 13:46 Foot - Left Anaerobic Culture - Preliminary Assessment and Plan (1) MRSA infection Narrative/Plan: 64-year-old man presents to Hospital under the care of these vascular surgery team because of the ongoing difficulty with his left foot transmetatarsal amputation site. Is evidence of worsening infection, and evidence of bony exposure. He is damaging the operating room is had further debridement. The patient will be going to rehab after his discharge metoprolol some further improvement. He understands the significant needs that he has a this point and that include antibiotic therapy, offloading of the site, smoking cessation, and improved nutrition to allow healing. Hopefully by going to rehab this will allow several these goals to occur. Antibiotic therapy has been initiated with vancomycin and Levaquin based on his prior cultures occur cultures will further help direct antibiotic therapy the time of his discharge. Current Visit: Yes Status: Acute Code(s): A49.02 - METHICILLIN RESIS STAPH INFECTION, UNSP SITE SNOMED Code(s): 918320514 (2) Partial nontraumatic amputation of left foot Current Visit: Yes Status: Acute Code(s): Z89.432 - ACQUIRED ABSENCE OF LEFT FOOT SNOMED Code(s): 834116038 (3) Atherosclerosis of [place] arteries of left leg with ulceration of other part of foot Current Visit: No Status: Acute Priority: Medium Code(s): I70.245 - ATHSCL MAKAH ARTERIES OF LEFT LEG W ULCERATION OTH PRT FOOT SNOMED Code(s): 706402230489315
[2019-02-10] MEDS: ATORVASTATIN 20 MG TAB PO SCH (21:01)
--- NOTE | 2019-02-10 22:57 | P.HPIM ---
History of Present Illness H&P Date: 02/10/19 Chief Complaint: Nonhealing Lower extremity wound. This is a history and physical 62-year-old white male with known history of COPD who continues to smoke and has had history of PAD with poorly healing wounds of the lower extremity. He was evaluated yesterday by vascular surgery and is now admitted for debridement and antibiotic treatment because of sepsis presentation. The patient and I had a long discussion regarding tobacco cessation. The patient has struggled due to previous hospitalization requiring foreign body removal. Review of Systems Constitutional: Reports fever, Reports weakness, Denies chills Eyes: denies blurred vision, denies pain Ears, nose, mouth and throat: Denies headache, Denies sore throat Cardiovascular: Denies chest pain, Denies shortness of breath Respiratory: Denies cough Gastrointestinal: Denies abdominal pain, Denies diarrhea, Denies nausea, Denies vomiting Musculoskeletal: Reports gait dysfunction, Reports limitation of motion, Reports low back pain, Denies myalgias Integumentary: Denies pruritus, Denies rash Neurological: Denies numbness, Denies weakness Psychiatric: Reports anhedonia, Reports depression, Reports mood swings Endocrine: Denies fatigue, Denies weight change Past Medical History Past Medical History: COPD, Deep Vein Thrombosis (DVT), GERD/Reflux, Hearing Disorder / Deafness, Osteoarthritis (OA), Pneumonia, Vascular Disorder Additional Past Medical History / Comment(s): COPD, chronic hypoxic respiratory failure maintained on oxygen 3 L per minute nasal cannula, previous DVT of the right lower extremity thousand and 8, severe peripheral vascular disease, osteomyelitis of the toe, previous left big toe amputation and previous history of left transmetatarsal amputation History of Any Multi-Drug Resistant Organisms: CRE, MRSA Date of last positivie culture/infection: 11/21/18-MRSA MDRO Source:: Right Leg Past Surgical History: No Surgical Hx Reported, Orthopedic Surgery Additional Past Surgical History / Comment(s): Bilateral femoral gluteal bypass surgery, arthroscopic left knee surgery, bilateral inguinal hernia repair, left transmetatarsal amputation of the great toe, Removal right pinky bone Past Anesthesia/Blood Transfusion Reactions: No Reported Reaction Past Psychological History: Anxiety Additional Psychological History / Comment(s): pt indepedant. 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 Patient is a recent is having difficulties with the adjustment Smoking Status: Current every day smoker Past Alcohol Use History: None Reported Additional Past Alcohol Use History / Comment(s): smoker since age 18 (1973), 1 PPD Past Drug Use History: Marijuana Additional Drug Use History / Comment(s): occ use but none in 5-6 months - Past Family History Brother(s) Family Medical History: Coronary Artery Disease (CAD) Additional Family Medical History / Comment(s): heart attack/cabg Father Family Medical History: No Reported History Mother Family Medical History: Deep Vein Thrombosis (DVT) Medications and Allergies Home Medications Medication Instructions Recorded Confirmed Type Atorvastatin [Lipitor] 20 mg PO HS 11/18/18 02/09/19 History Gabapentin [Neurontin] 300 mg PO TID 11/18/18 02/09/19 History Sertraline [Zoloft] 150 mg PO DAILY #30 tab 12/04/18 02/09/19 Rx Cetirizine HCl [Zyrtec] 10 mg PO DAILY 02/09/19 02/09/19 History Diazepam [Valium] 10 mg PO BID 02/09/19 02/09/19 History HYDROcodone/APAP 7.5-325MG [[place] 1 tab PO Q6HR PRN 02/09/19 02/09/19 History 7.5-325] Allergies Allergy/AdvReac Type Severity Reaction Status Date / Time hydromorphone [From Dilaudid] AdvReac Hallucinati Verified 11/18/18 15:53 ons Physical Exam Vitals: Vital Signs Temp Pulse Pulse Resp BP Pulse Ox 02/10/19 21:00 79 79 16 87/45 96 02/10/19 16:47 111/75 02/10/19 16:39 83 110/64 02/10/19 16:00 78 16 96/57 97 02/10/19 15:37 99/59 02/10/19 15:35 82 16 105/64 99 02/10/19 14:45 80 16 112/61 100 02/10/19 14:32 82 16 117/61 100 02/10/19 14:15 87 16 150/97 100 02/10/19 14:09 98.2 F 95 16 163/78 100 02/10/19 11:02 98.1 F 76 18 116/62 96 02/10/19 08:00 98.0 F 69 20 109/70 95 02/10/19 04:00 98.4 F 82 19 109/60 98 02/10/19 00:00 98.5 F 87 18 110/57 95 Intake and Output 02/10/19 02/10/19 02/10/19 06:59 14:59 22:59 Intake Total 700 125 Output Total 300 15 600 Balance -300 685 -475 Intake: IV 700 Oral 125 Output: Urine 300 600 Estimated Blood Loss 15 Other: Voiding Method Urinal Urinal # Voids 1 0 1 # Bowel Movements 0 Weight 67.9 kg 67.9 kg - Constitutional General appearance: thin - EENT Eyes: EOMI - Neck Neck: no lymphadenopathy - Respiratory Respiratory: bilateral: CTA - Cardiovascular Rhythm: regular Heart sounds: normal: S1, S2 Abnormal Heart Sounds: no S3 Gallop - Gastrointestinal General gastrointestinal: soft, no tenderness - Neurologic Neurologic: CNII-XII intact - Psychiatric Psychiatric: A&O x's 3 Results CBC & Chem 7: 02/09/19 16:03 02/09/19 16:03 Labs: Microbiology - Last 24 Hours (Table) 02/10/19 13:46 Wound Culture - Preliminary Foot - Left 02/10/19 13:46 Anaerobic Culture - Preliminary Foot - Left Thrombosis Risk Factor Assmnt - Choose All That Apply Each Factor Represents 1 point: Abnormal pulmonary function (COPD), Minor springer rgery planned Each Risk Factor Represents 2 Points: Age 61-74 years Other congenital or acquired thrombophilia - If yes, enter type in comment: No Thrombosis Risk Factor Assessment Total Risk Factor Score: 4 Thrombosis Risk Factor Assessment Level: Moderate Risk Assessment and Plan (1) Partial nontraumatic amputation of left foot Current Visit: Yes Status: Acute Code(s): Z89.432 - ACQUIRED ABSENCE OF LEFT FOOT SNOMED Code(s): 010043521 (2) COPD (chronic obstructive pulmonary disease) Current Visit: No Status: Acute Code(s): J44.9 - CHRONIC OBSTRUCTIVE PULMONARY DISEASE, UNSPECIFIED SNOMED Code(s): 08194235 (3) Peripheral vascular disease Current Visit: No Status: Acute Code(s): I73.9 - PERIPHERAL VASCULAR DISEASE, UNSPECIFIED SNOMED Code(s): 696615573 Plan: Vascular surgery consult for debridement later today of poorly healing wounds. Dr. Arellano is to be consult. New graft respiratory status seems to be stable, if this does not improve, consider pulmonology referral. Smoking cessation again discussed with the patient. Dr. Recio's group will be covering for the weekend. Check CBC and CMP in a.m. Time with Patient: Greater than 30
[2019-02-11] MEDS: SODIUM CHLORIDE 0.9% 1,000 ML IV SCH ×3 (02:03→13:33)
[2019-02-11] MEDS: DIAZEPAM 5 MG TAB PO SCH ×2 (07:39→20:01)
[2019-02-11] MEDS: LORATADINE 10 MG TAB PO SCH (07:40)
[2019-02-11] MEDS: SERTRALINE 100 MG TAB PO SCH (07:40)
[2019-02-11] MEDS: NICOTINE 21MG/24HR PATCH TRANSDERM SCH (07:40)
[2019-02-11] MEDS: HYDROcodone/APAP 7.5-325MG 1 EACH TAB PO PRN ×4 (07:40→20:02)
[2019-02-11] MEDS: GABAPENTIN 300 MG CAP PO SCH ×3 (07:40→22:03)
[2019-02-11] MEDS ORDERED: MORPHINE SULFATE 4 MG/ML SYRINGE IVP PRN (08:02)
[2019-02-11 08:12] LABS: African American GFR (CKD) >90 (>60 ml/min/1.73 sqM); Non-African American GFR(CKD) 89 (>60 ml/min/1.73 sqM)
[2019-02-11] MEDS: MORPHINE SULFATE 2 MG/ML SYRINGE IVP PRN ×4 (08:33→22:05)
--- NOTE | 2019-02-11 11:02 | P.PN ---
Subjective Progress Note Date: 02/11/19 Patient seen and examined. Overall doing well. Pain is now more controlled this morning. No chest pains or shortness of breath. Sitting up in chair. No acute distress Heart regular rate and rhythm Lungs clear bilaterally Abdomen soft, nontender nondistended Left lower extremity wound VAC in place. Clean and dry with good suction Status post transmetatarsal amputation revision and wound VAC placement for nonhealing left lower extremity wound Continue current therapy is as ordered. Continue wound VAC. Continue adequate pain control. At this time no further intervention is currently planned, patient will need further debridement and placement of stem cell versus skin substitute to cover bone for final attempt at healing, uncertain of timing due to need for OR approval. Objective - Vital Signs Vital signs: Vital Signs Temp 98.2 F 02/10/19 14:09 Pulse 89 02/11/19 08:00 Resp 20 02/11/19 08:00 BP 110/46 02/11/19 08:00 Pulse Ox 95 02/11/19 08:00 Intake & Output 02/10/19 02/11/19 02/11/19 18:59 06:59 18:59 Intake Total 700 125 Output Total 15 1050 Balance 685 -925 Weight 67.9 kg 67.6 kg Intake: IV 700 Oral 125 Output: Urine 1050 Estimated Blood Loss 15 Other: Voiding Method Urinal # Voids 0 1 # Bowel Movements 0 - Labs CBC & Chem 7: 02/09/19 16:03 02/11/19 06:52 Labs: Microbiology - Last 24 Hours (Table) 02/10/19 13:46 Gram Stain - Preliminary Foot - Left Wound Culture - Preliminary 02/10/19 13:46 Anaerobic Culture - Preliminary Foot - Left
[2019-02-11] MEDS ORDERED: VANCOMYCIN TROUGH DUE 1 EACH MISC MISCELLANE ONE (13:00)
[2019-02-11] MEDS: VANCOMYCIN 1,250 MG in SODIUM CHLORIDE 0.9% 250 ML IVPB SCH (13:32)
[2019-02-11] MEDS: ATORVASTATIN 20 MG TAB PO SCH (20:02)
[2019-02-11] MEDS: HEPARIN SODIUM,PORCINE 5,000 UNIT/ML 1 ML VIAL SQ SCH (20:02)
[2019-02-12] MEDS: LEVOFLOXACIN 500MG-D5W PMX 500 MG in DEXTROSE/WATER 1 100ML.BAG IVPB SCH (00:35)
[2019-02-12] MEDS: HYDROcodone/APAP 7.5-325MG 1 EACH TAB PO PRN ×5 (00:35→23:11)
--- NOTE | 2019-02-12 00:38 | PN ---
PROGRESS NOTE DATE OF SERVICE: 02/11/2019 I am covering for Dr. Bui. This 64-year-old gentleman with a past medical history of multiple medical problems admitted with significant infection of the left foot. A wound VAC was also in place. Medical consultants including Dr. Arellano and Dr. Farah are following the patient closely. The patient also had a history of gout as well. The patient also had MRSA grown from the wound cultures recently. PAST MEDICAL HISTORY: Reviewed. REVIEW OF SYSTEMS: CARDIOVASCULAR system: No angina or palpitations. RESPIRATORY: As mentioned earlier. GI: As mentioned earlier. no dysuria or hematuria. Central nervous system: No numbness or weakness. CURRENT MEDICATIONS: Current medications are reviewed and include: 1. [place] 7.5 q.4 p.r.n. 2. Lipitor 20 mg q.h.s. 3. Valium 10 mg p.o. b.i.d. 4. Neurontin 300 mg daily. 5. Levaquin 500 mg IV daily. 6. Claritin. 7. Morphine sulfate. 8. Habitrol 14. 9. Zoloft. 10.Vancomycin IV. PHYSICAL EXAMINATION: Patient is alert, oriented x3. Pulse is 89. Blood pressure 100/40. Respirations 22. Temperature normal. Pulse ox 94% on room air. HEENT are normal. Oral mucosa moist. Neck is no jugular venous distention. No carotid bruit. No lymph node enlargement. Cardiovascular systems: S1, S2 muffled. Respirations: Breath sounds diminished in the bases. A few scattered rhonchi and crackles. ABDOMEN: Soft, nontender. Legs status post infection. Nervous system: No focal deficits. LAB STUDIES: WBC 5.3, hemoglobin 12.1. ASSESSMENT: 1. Left foot partial nontraumatic amputation as well as nonhealing left lower extremity wound status post wound VAC placement. 2. History of recent transmetatarsal amputation revision. 3. History of chronic obstructive pulmonary disease. 4. History of deep vein thrombosis. 5. Gastroesophageal reflux disease. 6. Degenerative joint disease. 7. History of pneumonia. 8. History of chronic obstructive pulmonary disease. 9. Chronic hypoxic respiratory failure. 10.History of deep vein thrombosis. 11.Gait dysfunction. 12.History of CRE. 13.History of anxiety. 14.History of nicotine dependence. RECOMMENDATIONS AND DISCUSSION: This 64-year-old gentleman who presented with multiple complex medical issues, we recommend to continue the current medications, management and symptomatic treatment. Continue with broad-spectrum IV antibiotics. Otherwise, PT/OT evaluation, possible ECF rehab. I would also recommend resume the home medications and guarded prognosis. Further recommendations to follow. LAZ / MIREILLE: [id number] /
[2019-02-12] MEDS: SODIUM CHLORIDE 0.9% 1,000 ML IV SCH ×2 (02:07→02:27)
[2019-02-12] MEDS: VANCOMYCIN 1,250 MG in SODIUM CHLORIDE 0.9% 250 ML IVPB SCH ×2 (02:27→15:00)
[2019-02-12] MEDS: MORPHINE SULFATE 2 MG/ML SYRINGE IVP PRN ×3 (04:09→21:25)
[2019-02-12] MEDS: PANTOPRAZOLE 40 MG TABLET PO SCH (06:38)
[2019-02-12 07:26] LABS: HCT 30.3 % (39.0-53.0); Hypochromasia Moderate; MCH 26.1 pg (25.0-35.0); MCV 81.5 fL (80.0-100.0); Mean Platelet Volume 6.5; Platelet Count 380 k/uL (150-450); RBC 3.72 m/uL (4.30-5.90); RDW 14.3 % (11.5-15.5); WBC 8.2 k/uL (3.8-10.6)
[2019-02-12 07:33] LABS: HGB 9.7 gm/dL (13.0-17.5)
[2019-02-12] MEDS: NICOTINE 21MG/24HR PATCH TRANSDERM SCH (07:58)
[2019-02-12] MEDS: SERTRALINE 100 MG TAB PO SCH (07:59)
[2019-02-12] MEDS: MULTIVITAMINS, THERA 1 EACH TAB PO SCH (07:59)
[2019-02-12] MEDS: GABAPENTIN 300 MG CAP PO SCH ×3 (07:59→23:11)
[2019-02-12] MEDS: HEPARIN SODIUM,PORCINE 5,000 UNIT/ML 1 ML VIAL SQ SCH ×2 (07:59→21:19)
[2019-02-12] MEDS: DIAZEPAM 5 MG TAB PO SCH ×2 (08:00→21:19)
[2019-02-12] MEDS: LORATADINE 10 MG TAB PO SCH (08:00)
--- NOTE | 2019-02-12 09:47 | P.PN ---
<David Leeee - Last Filed: 02/12/19 10:27> Subjective Progress Note Date: 02/12/19 Patient seen and evaluated lying in bed in no acute distress. Patient reports pain is better controlled today. No reports of chest pain or shortness of breath. Patient states he has been assisted to chair. Wound VAC intact and dr bae. WBC 8.2, hemoglobin 9.7, hematocrit 30.3. Objective - Vital Signs Vital signs: Vital Signs Temp 97.9 F 02/12/19 07:55 Pulse 80 02/12/19 07:55 Resp 16 02/12/19 07:55 BP 123/68 02/12/19 07:55 Pulse Ox 96 02/12/19 07:55 Intake & Output 02/11/19 02/12/19 02/12/19 18:59 06:59 18:59 Intake Total 365 Output Total 800 Balance 365 -800 Intake: Oral 365 Output: Urine 800 Other: Voiding Method Urinal # Voids 1 1 - Exam General appearance: The patient is alert, oriented, in no acute distress. HET: Head is normocephalic and atraumatic. Pupils are equal and reactive. Heart: S1 S2. Regular rate and rhythm. Lungs: No crackles or wheezes are heard. Abdomen: Soft, nontender, nondistended with bowel sounds. No peritoneal signs. No palpable organomegaly or masses. Extremities: Normal skin color and turgor. Left lower extremity with wound VAC, mild erythema. Site is clean dry and intact, wound VAC with good suction. Neurological: No focal deficits. Strength and sensation are grossly intact. - Labs CBC & Chem 7: 02/12/19 06:35 02/11/19 06:52 Labs: Abnormal Lab Results - Last 24 Hours (Table) 02/12/19 Range/Units 06:35 RBC 3.72 L (4.30-5.90) m/uL Hgb 9.7 L D (13.0-17.5) gm/dL Hct 30.3 L (39.0-53.0) % Assessment and Plan Assessment: Status post transmetatarsal amputation revision and wound VAC placement for nonhealing left lower extremity wound Plan: Continue current therapy as ordered. Continue with wound VAC. Continue with pain control. Patient will need further debridement and placement of stem cells versus skin substitute to cover bone for final attempt at healing in the future area The above dictated assessment and findings were discussed with Dr. Farah. The impression and plan of care have been directed as dictated. <Neha Farah - Last Filed: 02/12/19 12:47> Objective - Vital Signs Vital signs: Vital Signs Temp 97.9 F 02/12/19 07:55 Pulse 80 02/12/19 07:55 Resp 16 02/12/19 07:55 BP 123/68 02/12/19 07:55 Pulse Ox 96 02/12/19 07:55 Intake & Output 02/11/19 02/12/19 02/12/19 18:59 06:59 18:59 Intake Total 365 Output Total 800 Balance 365 -800 Intake: Oral 365 Output: Urine 800 Other: Voiding Method Urinal Urinal # Voids 1 1 - Labs CBC & Chem 7: 02/12/19 06:35 02/11/19 06:52 Labs: Abnormal Lab Results - Last 24 Hours (Table) 02/12/19 Range/Units 06:35 RBC 3.72 L (4.30-5.90) m/uL Hgb 9.7 L D (13.0-17.5) gm/dL Hct 30.3 L (39.0-53.0) % Assessment and Plan Plan: The patient was seen and examined and discussed with the nurse practitioner. Overall feeling much better. We will plan to change the wound VAC tomorrow. Currently awaiting decisions regarding stem cell placement in the OR prior to discharge versus as an outpatient.
--- NOTE | 2019-02-12 14:04 | CDI ---
Documentation Clarification Form Date: 02/12/2019 1:57:27 PM From: Mary Colón RN, CCDS Admit Date: 02/09/2019 3:11:00 PM Patient Name: Horacio Garza Visit Number: [id number] ATTENTION: The Clinical Documentation Specialists (CDI) and [facility] Coding Staff appreciate your assistance in clarifying documentation. Please respond to the clarification below the line at the bottom and electronically sign. The CDI & [facility] Coding staff will review the response and follow-up if needed. Please note: Queries are made part of the Legal Health Record. If you have any questions, please contact the author of this message via ITS. Dr. Neha Rojas declining Hgb and Hct have been noted and lacks specificity to accurately reflect your patients severity of condition and clarification is needed. History/Risk Factors: COPD, DVT, chronic hypoxic respiratory failure on 3L Home O2 OTC S/P Revision of left transmetatarsal amputation Clinical indicators: Hemoglobin: 12.1/9.7 Hematocrit: 38.5/30.3 Treatment: Monitoring labs 1L IVF bolus In order to capture the severity of condition, please clarify the clinical significance of the declining Hgb and Hct and etiology if known: Acute blood loss anemia (expected or unexpected outcome of surgery) Acute on chronic blood loss anemia Chronic blood loss anemia Iron deficiency anemia Drug induced anemia Nutritional anemia Anemia of chronic disease Unable to determine Other, please specify (Last Revision: December 2016) acute on chronic anemia, likely initially hemoconcentrated. MTDD
--- NOTE | 2019-02-12 18:57 | PN ---
PROGRESS NOTE I am covering for Dr. Bui. DATE OF SERVICE: 02/12/2019 This 64-year-old gentleman who was admitted with multiple medical problems underwent a transmetatarsal amputation and wound V.A.C. placement. The patient is being closely monitored at this time. Dr. Farah is following the patient closely. Dr. Farah has recommended changing the wound V.A.C. tomorrow. The wound culture showed presumptive Staph aureus. The patient is on IV vancomycin per Infectious Disease. No chest pain. No palpitations. Past medical history reviewed. REVIEW OF SYSTEMS: CARDIOVASCULAR SYSTEM: No angina, palpitations. RESPIRATORY SYSTEM: As mentioned earlier. GI: No nausea, vomiting. : No dysuria or retention. NERVOUS SYSTEM: No numbness, weakness. CURRENT MEDICATIONS: Reviewed. They include: 1. Tylenol 500 mg q.6 p.r.n. 2. [place] 7.5. 3. Lipitor 20 mg at bedtime. 4. Valium 10 mg b.i.d. 5. Neurontin 300 mg p.o. t.i.d. 6. Heparin 5000 units subcutaneously b.i.d. 7. Levaquin 500 mg daily. 8. Claritin 10 mg daily. 9. Iron sulfate. 10.Multivitamins. 11.Habitrol 14 daily. 12.Zoloft 150 mg p.o. daily. 13.Vancomycin IV per pharmacy dosing; 1250 mg b.i.d. PHYSICAL EXAMINATION: Patient is alert and oriented x3. Pulse 85, blood pressure 113/58, respirations 16, temperature 98.2, pulse ox 94% on room air. HEENT: Conjunctivae normal. NECK: No jugular venous distention. CARDIOVASCULAR SYSTEM: S1, S2 muffled. RESPIRATORY SYSTEM: Breath sounds diminished at the bases. Scattered rhonchi and crackles. ABDOMEN: Soft, non-tender. LEGS: Right foot surgery and wound V.A.C. in place. NERVOUS SYSTEM: No focal deficit. LABS: WBC 8.2, hemoglobin 9.7. Vancomycin is 20. ASSESSMENT: 1. Left foot partial non-traumatic amputation as well as nonhealing left lower extremity wound, status post wound V.A.C. placement. 2. History of recent transmetatarsal amputation revision. 3. History of chronic obstructive pulmonary disease. 4. History of deep vein thrombosis. 5. Gastroesophageal reflux disease. 6. Degenerative joint disease. 7. History of pneumonia. 8. History of chronic obstructive pulmonary disease. 9. Chronic hypoxic respiratory failure. 10.Gait dysfunction. 11.History of CRE. 12.History of anxiety. 13.History of nicotine dependence. RECOMMENDATIONS AND DISCUSSION: I recommend to continue current medications, continue with the monitoring, symptomatic treatment. Most recent culture is noted with presumptive Staph aureus. I recommend continued IV antibiotics. Continue the wound V.A.C.; changes per Dr. Farah. Otherwise, DVT prophylaxis. PT/OT evaluation. I would also recommend evaluation by case management/social work team for possible ECF rehab because of the multiple complex medical issues involved. The prognosis is guarded because of the multiple complex medical issues. Further recommendations to follow. MMODL / IJN: [id number] /
--- NOTE | 2019-02-12 20:52 | P.PN ---
Subjective Progress Note Date: 02/12/19 63-year-old male has multiple medical troubles including severe peripheral vascular disease and a history of gout. The patient has been following with the vascular surgeon as well as the wound healing Center regarding a nonhealing ulceration to his left foot. Due to gangrenous changes he did have amputation to the left great toe. An open ulceration continued and there was evidence of exposure of the first metatarsal. Local wound care was being utilized in the wound VAC was being attempted. The patient presented to the wound center where he has been receiving ongoing care, in August the patient however is evidence of extensive gangrenous change of the foot was sent to emergency center at admission through his primary care physician.At that time he was seen by vascular surgery and transmetatarsal amputation was performed with a potential conversion to a [id number] amputation if he did not respond well. He fortunately has been doing relatively well with the negative pressure therapy system being applied to the transmetatarsal amputation site. He did require 1 bony revision because of exposure to metatarsal head. They have been showing some improvement. Gen. the patient was starting to have some improvement but he then developed some significant swelling to his right leg distally related to the prior incision from his vascular bypass. Apparently he was seen in the o utpatient setting and aspiration was performed MRSA was isolated. He doesn't. He was placed on some oral antibiotic therapy but despite this the leg worsened became more tight warm erythematous and painful and he noticed that there was also evidence of some swelling to the more proximal aspect of his thigh at the more cephalad aspect of his bypass. The patient was found no evidence of abscess and retained foreign material that after surgical debridement and a course of antibiotic therapy eventually improved. Overs continue to have ongoing difficulties to the left foot transmetatarsal amputation site. There is again some bony exposure evidence of ongoing infection and constantly is brought to hospital and seen by the vascular surgeon in he's been taking the operative the debridement of the transmetatarsal site. Some bony debridement did occur sensor was bony exposure. The patient is postoperative and seems to be doing relatively well. He has had ongoing weight loss, his mood is poor after the of his . 02/12/2019 the patient's mood is somewhat improved today. His family is been by and brought him some food and treats and this seems to have improved his mood. He has been evaluated by the vascular surgeon again today. Wound VAC is in place. His pain is definitely improved which likely has impacted his affect. Objective - Vital Signs Vital signs: Vital Signs Temp 98.2 F 02/12/19 14:55 Pulse 80 02/12/19 14:55 Resp 16 02/12/19 14:55 BP 113/58 02/12/19 14:55 Pulse Ox 94 L 02/12/19 14:55 Intake & Output 02/12/19 02/12/19 02/13/19 06:59 18:59 06:59 Output Total 800 Balance -800 Output: Urine 800 Other: Voiding Method Urinal Urinal # Voids 1 2 - Exam 63-year-old male quite uncomfortable HEENT: Anicteric conjunctiva are pink and moist nasal mucosa grossly intact without significant lesions, there is no thrush. Neck: The neck is supple without significant lymphadenopathy or thyromegaly. Lungs: Good bilateral air entry without significant crackles or wheezing. There is no significant bronchial sounds. There is no egophony or dullness. Heart: Regular rate and rhythm with an audible S1-S2, no S3 no S4. There is no significant murmur click or rub, PMI was nondisplaced. Abdomen: Positive bowel sounds soft and nontender without palpable masses or organomegaly. There was no guarding or rebound. Extremities: The upper extremities have no evidence of any distinct lesions. The right lower extremity has healed from the recent infections Left lower extremity has evidence of the transmetatarsal amputation site. There is a postoperative wound VAC is in place is not removed, the surgeon notes further bony debridement. The swelling erythema to the foot seems to be improved from the last evaluation. Neuro: Awake alert oriented to person place and time. There are no acute new gross focal sensory motor deficits. - Labs CBC & Chem 7: 02/12/19 06:35 02/11/19 06:52 Labs: Abnormal Lab Results - Last 24 Hours (Table) 02/12/19 Range/Units 06:35 RBC 3.72 L (4.30-5.90) m/uL Hgb 9.7 L D (13.0-17.5) gm/dL Hct 30.3 L (39.0-53.0) % Microbiology - Last 24 Hours (Table) 02/10/19 13:46 Anaerobic Culture - Preliminary Foot - Left 02/10/19 13:46 Gram Stain - Preliminary Foot - Left Wound Culture - Preliminary Presumptive Staph aureus Laboratory Results WBC 8.2 k/uL (3.8-10.6) 02/12/19 06:35 RBC 3.72 m/uL (4.30-5.90) L 02/12/19 06:35 Hgb 9.7 gm/dL (13.0-17.5) L D 02/12/19 06:35 Hct 30.3 % (39.0-53.0) L 02/12/19 06:35 MCV 81.5 fL (80.0-100.0) 02/12/19 06:35 MCH 26.1 pg (25.0-35.0) 02/12/19 06:35 MCHC 32.0 g/dL (31.0-37.0) 02/12/19 06:35 RDW 14.3 % (11.5-15.5) 02/12/19 06:35 Plt Count 380 k/uL (150-450) 02/12/19 06:35 Neutrophils % 60 % 02/09/19 16:03 Lymphocytes % 26 % 02/09/19 16:03 Monocytes % 9 % 02/09/19 16:03 Eosinophils % 2 % 02/09/19 16:03 Basophils % 1 % 02/09/19 16:03 Neutrophils # 3.1 k/uL (1.3-7.7) 02/09/19 16:03 Lymphocytes # 1.4 k/uL (1.0-4.8) 02/09/19 16:03 Monocytes # 0.5 k/uL (0-1.0) 02/09/19 16:03 Eosinophils # 0.1 k/uL (0-0.7) 02/09/19 16:03 Basophils # 0.1 k/uL (0-0.2) 02/09/19 16:03 Hypochromasia Moderate 02/12/19 06:35 Sodium 140 mmol/L (137-145) 02/09/19 16:03 Potassium 3.6 mmol/L (3.5-5.1) 02/09/19 16:03 Chloride 100 mmol/L (98-107) 02/09/19 16:03 Carbon Dioxide 33 mmol/L (22-30) H 02/09/19 16:03 Anion Gap 7 mmol/L 02/09/19 16:03 BUN 21 mg/dL (9-20) H 02/09/19 16:03 Creatinine 0.92 mg/dL (0.66-1.25) 02/11/19 06:52 Est GFR (CKD-EPI)AfAm >90 (>60 ml/min/1.73 sqM) 02/11/19 06:52 Est GFR (CKD-EPI)NonAf 89 (>60 ml/min/1.73 sqM) 02/11/19 06:52 Glucose 89 mg/dL (74-99) 02/09/19 16:03 Plasma Lactic Acid [place] 1.7 mmol/L (0.7-2.0) 02/09/19 16:03 Calcium 8.4 mg/dL (8.4-10.2) 02/09/19 16:03 Total Bilirubin 0.5 mg/dL (0.2-1.3) 02/09/19 16:03 AST 55 U/L (17-59) 02/09/19 16:03 ALT 30 U/L (21-72) 02/09/19 16:03 Alkaline Phosphatase 91 U/L (38-126) 02/09/19 16:03 Total Protein 6.8 g/dL (6.3-8.2) 02/09/19 16:03 Albumin 3.1 g/dL (3.5-5.0) L 02/09/19 16:03 Vancomycin Trough 20.0 ug/mL 02/11/19 12:32 Microbiology 02/10/19 13:46 Foot - Left Anaerobic Culture - Preliminary 02/10/19 13:46 Foot - Left Gram Stain - Preliminary 02/10/19 13:46 Foot - Left Wound Culture - Preliminary Presumptive Staph aureus Assessment and Plan (1) MRSA infection Narrative/Plan: 64-year-old man presents to Hospital under the care of these vascular surgery team because of the ongoing difficulty with his left foot transmetatarsal amputation site. Is evidence of worsening infection, and evidence of bony exposure. He is damaging the operating room is had further debridement. The patient will be going to rehab after his discharge metoprolol some further improvement. He understands the significant needs that he has a this point and that include antibiotic therapy, offloading of the site, smoking cessation, and improved nutrition to allow healing. Hopefully by going to rehab this will allow several these goals to occur. Antibiotic therapy has been initiated with vancomycin and Levaquin based on his prior cultures occur cultures will further help direct antibiotic therapy the time of his discharge. 02/12/2019 the patient is feeling slightly better. Wound culture showing some staph he will continue on the current antibiotic therapy of Levaquin and vancomycin until final culture results are available. Goal will be for the patient to go to rehab to receive his course of antibiotics, local wound care which includes a wound VAC. The patient is expressing that maybe would like to go home however he is failed care in the home setting for quite some time. His daughter will be back and also will help convince him of the importance of going to the care facility. 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
[2019-02-12] MEDS: ATORVASTATIN 20 MG TAB PO SCH (21:19)
[2019-02-12] MEDS: LEVOFLOXACIN 500 MG TAB PO SCH (23:11)
[2019-02-13] MEDS: VANCOMYCIN 1,250 MG in SODIUM CHLORIDE 0.9% 250 ML IVPB SCH ×2 (02:17→15:05)
[2019-02-13] MEDS: HYDROcodone/APAP 7.5-325MG 1 EACH TAB PO PRN ×3 (06:01→21:01)
[2019-02-13] MEDS: PANTOPRAZOLE 40 MG TABLET PO SCH ×2 (06:50→11:00)
[2019-02-13 06:52] LABS: African American GFR (CKD) >90 (>60 ml/min/1.73 sqM); Non-African American GFR(CKD) 87 (>60 ml/min/1.73 sqM)
[2019-02-13] MEDS: NICOTINE 21MG/24HR PATCH TRANSDERM SCH (09:09)
[2019-02-13] MEDS: LORATADINE 10 MG TAB PO SCH (09:10)
[2019-02-13] MEDS: MULTIVITAMINS, THERA 1 EACH TAB PO SCH (09:10)
[2019-02-13] MEDS: HEPARIN SODIUM,PORCINE 5,000 UNIT/ML 1 ML VIAL SQ SCH ×2 (09:10→21:03)
[2019-02-13] MEDS: GABAPENTIN 300 MG CAP PO SCH ×3 (09:10→21:01)
[2019-02-13] MEDS: SERTRALINE 100 MG TAB PO SCH (09:10)
[2019-02-13] MEDS: DIAZEPAM 5 MG TAB PO SCH ×2 (09:10→21:02)
[2019-02-13] MEDS: MORPHINE SULFATE 2 MG/ML SYRINGE IVP PRN ×3 (12:00→22:50)
--- NOTE | 2019-02-13 16:53 | P.PN ---
Subjective Progress Note Date: 02/13/19 Patient seen and examined. Overall doing well. No complaints. Pain is controlled No acute distress Heart regular rate and rhythm Lungs clear bilaterally Abdomen soft, nontender nondistended Left lower extremity wound VAC in place. , The dressing is changed today. No further evidence of necrotic tissue or infection. VAC is placed Clean and dry with good suction Status post transmetatarsal amputation revision and wound VAC placement for nonhealing left lower extremity wound Acute on chronic anemia, initial hemoglobin likely partially hemoconcentrated. Continue to follow labs Continue current therapy is as ordered. Continue wound VAC. Now planning for stem cell placement of the left lower extremity wound on Friday morning, may be discharged following. We will continue wound VAC upon discharge, after the operating room the discharge wound VAC may not be removed for 1 week to 10 days Objective - Vital Signs Vital signs: Vital Signs Temp 98.1 F 02/13/19 16:25 Pulse 70 02/13/19 16:25 Resp 17 02/13/19 16:25 BP 103/57 02/13/19 16:25 Pulse Ox 100 02/13/19 16:25 Intake & Output 02/12/19 02/13/19 02/13/19 18:59 06:59 18:59 Intake Total 600 Output Total 1600 Balance -1600 600 Weight 74.4 kg Intake: Oral 600 Output: Urine 1600 Other: Voiding Method Urinal Urinal # Voids 2 600 - Labs CBC & Chem 7: 02/12/19 06:35 02/13/19 06:20 Labs: Microbiology - Last 24 Hours (Table) 02/10/19 13:46 Gram Stain - Final Foot - Left Wound Culture - Final Staphylococcus aureus 02/10/19 13:46 Anaerobic Culture - Preliminary Foot - Left
[2019-02-13] MEDS: ATORVASTATIN 20 MG TAB PO SCH (21:01)
--- NOTE | 2019-02-13 21:54 | PN ---
PROGRESS NOTE DATE OF SERVICE: 02/13/2019 I am covering for Dr. Bui. This 64-year-old gentleman admitted with left foot partial amputation as well as nonhealing ulcer of the left foot is being closely monitored at this time. Dr. Farah has seen the patient and planning stem-cell placement of the left lower extremity wound on Friday morning. No chest pain. No palpitations. No fever. EXAM: Alert and oriented x3. Pulse is 70. Blood pressure 103/57, respiration 17, temperature 98.2, pulse 100 percent on room air. HEENT: Conjunctivae normal. NECK: No JVD. CARDIOVASCULAR: S1, S2 muffled. RESPIRATORY SYSTEM: Breath sounds diminished at the bases. No rhonchi. No crackles. ABDOMEN soft, nontender. LEGS: Left foot wound on wound VAC. Nervous System: No focal deficits. LABS: WBC 8.2, hemoglobin 9.7. ASSESSMENT: 1. Left foot partial non-traumatic amputation as well as nonhealing lower extremity wound status post wound VAC placement with MSSA. 2. For stem cell placement by Dr. Farah on Friday. 3. History of recent transmetatarsal amputation revision. 4. History of chronic obstructive pulmonary disease. 5. History of deep vein thrombosis. 6. Gastroesophageal reflux disease. 7. Degenerative joint disease. 8. History of pneumonia. 9. History of chronic obstructive pulmonary disease. 10.Chronic hypoxic respiratory failure. 11.Gait dysfunction. 12.History of CRE. 13.History of anxiety. 14.History of nicotine dependence. RECOMMENDATIONS AND DISCUSSION: Recommend to continue current medications, management and symptomatic treatment. Otherwise, we will monitor the patient closely. Continue the antibiotics. Closely follow with multiple consultants and the wound culture showed MSSA. Continue to monitor. Further recommendations to follow. MMODL / IJN: [id number] /
[2019-02-13] MEDS: LEVOFLOXACIN 500 MG TAB PO SCH (22:47)
[2019-02-14] MEDS ORDERED: VANCOMYCIN TROUGH DUE 1 EACH MISC MISCELLANE ONE (01:00)
[2019-02-14] MEDS: HYDROcodone/APAP 7.5-325MG 1 EACH TAB PO PRN ×4 (01:37→19:18)
[2019-02-14] MEDS: VANCOMYCIN 1,250 MG in SODIUM CHLORIDE 0.9% 250 ML IVPB SCH (02:02)
[2019-02-14] MEDS: VANCOMYCIN 1,000 MG in SODIUM CHLORIDE 0.9% 250 ML IVPB SCH ×2 (05:09→17:12)
[2019-02-14 06:33] LABS: HCT 29.9 % (39.0-53.0); HGB 9.1 gm/dL (13.0-17.5); Hypochromasia Slight; MCH 24.7 pg (25.0-35.0); MCHC 30.6 g/dL (31.0-37.0); MCV 80.9 fL (80.0-100.0); Platelet Count 387 k/uL (150-450); RDW 14.8 % (11.5-15.5); WBC 10.5 k/uL (3.8-10.6)
[2019-02-14 06:49] LABS: African American GFR (CKD) >90 (>60 ml/min/1.73 sqM); Anion Gap 5 mmol/L; Blood Urea Nitrogen 12 mg/dL (9-20); Calcium 6.9 mg/dL (8.4-10.2); Carbon Dioxide 35 mmol/L (22-30); Chloride 99 mmol/L (98-107); Glucose 79 mg/dL (74-99); Non-African American GFR(CKD) 85 (>60 ml/min/1.73 sqM); Potassium 3.6 mmol/L (3.5-5.1); Sodium 139 mmol/L (137-145)
[2019-02-14] MEDS: NICOTINE 21MG/24HR PATCH TRANSDERM SCH (07:45)
[2019-02-14] MEDS: DIAZEPAM 5 MG TAB PO SCH ×2 (07:46→21:40)
[2019-02-14] MEDS: PANTOPRAZOLE 40 MG TABLET PO SCH (07:46)
[2019-02-14] MEDS: SERTRALINE 100 MG TAB PO SCH (07:46)
[2019-02-14] MEDS: LORATADINE 10 MG TAB PO SCH (07:46)
[2019-02-14] MEDS: HEPARIN SODIUM,PORCINE 5,000 UNIT/ML 1 ML VIAL SQ SCH ×2 (07:46→21:40)
[2019-02-14] MEDS: GABAPENTIN 300 MG CAP PO SCH ×3 (07:46→21:40)
--- NOTE | 2019-02-14 10:29 | P.PN ---
Subjective Progress Note Date: 02/14/19 Patient seen and examined. Overall doing well. No complaints. Has some pain and left shoulder No acute distress Left shoulder without any gross deformity or significant range of motion issue Heart regular rate and rhythm Lungs clear bilaterally Abdomen soft, nontender nondistended Left lower extremity wound VAC in place. Clean and dry with no leaks Status post transmetatarsal amputation revision and wound VAC placement for nonhealing left lower extremity wound Acute on chronic anemia, initial hemoglobin likely partially hemoconcentrated. Continue to follow labs Continue current therapy is as ordered. Continue wound VAC. Plan for OR Friday and subsequent discharge with wound VAC in place for 7-10 days Objective - Vital Signs Vital signs: Vital Signs Temp 98.3 F 02/14/19 04:40 Pulse 73 02/14/19 07:52 Resp 18 02/14/19 08:00 BP 93/54 02/14/19 09:44 Pulse Ox 96 02/14/19 04:40 Intake & Output 02/13/19 02/14/19 02/14/19 18:59 06:59 18:59 Intake Total 1210 720 Output Total 700 Balance 510 720 Intake: Intake, IV Titration 250 Amount Vancomycin 1,250 mg In 250 Sodium Chloride 0.9% 250 ml @ 125 mls/hr IVPB Q12H [facility] Rx#:[id number] Oral 960 720 Output: Urine 700 Other: Voiding Method Urinal Urinal # Voids 600 2 # Bowel Movements 0 - Labs CBC & Chem 7: 02/14/19 06:14 02/14/19 06:14 Labs: Abnormal Lab Results - Last 24 Hours (Table) 02/14/19 02/14/19 Range/Units 06:14 06:14 RBC 3.70 L (4.30-5.90) m/uL Hgb 9.1 L (13.0-17.5) gm/dL Hct 29.9 L (39.0-53.0) % MCH 24.7 L (25.0-35.0) pg MCHC 30.6 L (31.0-37.0) g/dL Carbon Dioxide 35 H (22-30) mmol/L Calcium 6.9 L (8.4-10.2) mg/dL Microbiology - Last 24 Hours (Table) 02/10/19 13:46 Gram Stain - Final Foot - Left Wound Culture - Final Staphylococcus aureus
[2019-02-14] MEDS: MULTIVITAMINS, THERA 1 EACH TAB PO SCH (11:04)
[2019-02-14] MEDS ORDERED: SODIUM CHLORIDE 0.9% 500 ML 250 ML IV ONE (14:42)
--- NOTE | 2019-02-14 17:30 | PN ---
PROGRESS NOTE DATE OF SERVICE: 02/14/2019. This 64-year-old gentleman who was admitted with left foot partial nontraumatic amputation as well as known nonhealing lower extremity wound has MSSA growing from the culture. Wound VAC was applied. Dr. Farah is planning stem-cell placement on Friday, multiple consultants are following the patient closely. The most recent culture showing anaerobic bacilli, gram-negative bacilli and as well as MSSA. PAST MEDICAL HISTORY: Reviewed. REVIEW OF SYSTEMS: Cardiovascular: No angina or palpitations. Respiration: As mentioned earlier. GI as mentioned earlier. : No dysuria or retention. CENTRAL NERVOUS SYSTEM: No numbness or weakness. CURRENT MEDICATIONS: Reviewed and include: 1. Tylenol p.r.n. 2. [place] 7.5 q.4h. 3. Lipitor 20 mg at bedtime. 4. Valium 10 mg p.o. b.i.d. 5. Neurontin 300 mg p.o. t.i.d. 6. Heparin 5000 subcu b.i.d. 7. Levaquin 500 mg p.o. daily. 8. Claritin 10 mg daily. 10.Multivitamins. 11.Protonix. 12.Zoloft. 13.Vancomycin IV. PHYSICAL EXAMINATION: Patient is alert, oriented times three. Pulse 88. Blood pressure 135/92, respirations 16, temperature 98.8, pulse ox 97% on room air. HEENT: Conjunctivae normal. Oral mucosa moist. NECK: No JVD. CARDIOVASCULAR: S1, S2 muffled. RESPIRATIONS: Breath sounds diminished in the bases. A few scattered rhonchi. ABDOMEN: Soft, nontender. LEGS: Wound VAC and foot ulcers also present. NERVOUS SYSTEM: No focal deficits. LAB STUDIES: WBC 10.3, hemoglobin 9.1. ASSESSMENT: 1. Left foot partial non-traumatic amputation as well as nonhealing lower extremity wound status post wound VAC and placement with MSSA and gram-negative bacilli. 2. Full stem cell placement by Dr. Farha on Friday. 3. History of recent transmetatarsal amputation revision. 4. History of chronic obstructive pulmonary disease. 5. Deep vein thrombosis. 6. Gastroesophageal reflux disease. 7. Degenerative joint disease. 8. History of pneumonia. 9. History of chronic hypoxic respiratory failure on home O2 nasal cannula. 10.Gait dysfunction. 11.History of CRE. 12.History of anxiety. 13.History of nicotine dependence. RECOMMENDATIONS AND DISCUSSION: Recommend to continue current medications, management and symptomatic treatment. Otherwise, at this time, I would recommend continue the antibiotics. Await the final ID. Closely follow with vascular surgery. will follow. Continue the rest of medication. DVT prophylaxis. MMODL / IJN: [id number] / MTDD
[2019-02-14] MEDS: ATORVASTATIN 20 MG TAB PO SCH (21:39)
[2019-02-14] MEDS: LEVOFLOXACIN 500 MG TAB PO SCH (21:40)
[2019-02-15] MEDS: HYDROcodone/APAP 7.5-325MG 1 EACH TAB PO PRN ×3 (04:43→16:37)
[2019-02-15] MEDS: VANCOMYCIN 1,000 MG in SODIUM CHLORIDE 0.9% 250 ML IVPB SCH (05:04)
--- NOTE | 2019-02-15 07:43 | P.PN ---
Subjective Progress Note Date: 02/15/19 Principal diagnosis: Wound care This is a continue present 8-year-old white male essentially admitted for nonhealing wound ulcer with history of partial habitation. The patient has had stem cell treatment and is somewhat despondent today. Affect is flat and he has poor appetite. No voiding difficulties are stated. Objective - Vital Signs Vital signs: Vital Signs Temp 98.1 F 02/15/19 04:35 Pulse 75 02/15/19 04:35 Resp 20 02/15/19 04:35 BP 103/55 02/15/19 04:35 Pulse Ox 92 L 02/15/19 04:35 Intake & Output 02/14/19 02/15/19 02/15/19 18:59 06:59 18:59 Intake Total 1080 Output Total 1000 1600 Balance 80 -1600 Intake: Oral 1080 Output: Urine 1000 1600 Other: Voiding Method Urinal # Bowel Movements 0 - Constitutional General appearance: Present: thin - EENT Eyes: Absent: abnormal pupil - Neck Neck: Absent: lymphadenopathy - Respiratory Respiratory: bilateral: diminished - Cardiovascular Rhythm: regular Heart sounds: normal: S1, S2 Abnormal Heart Sounds: Absent: S3 Gallop - Gastrointestinal General gastrointestinal: Present: soft. Absent: tenderness - Integumentary Integumentary Comment(s): Chronic foot wound - Neurologic Neurologic: Present: CNII-XII intact - Psychiatric Psychiatric: Present: A&O x's 3. Absent: appropriate affect - Labs CBC & Chem 7: 02/14/19 06:14 02/14/19 06:14 Labs: Microbiology - Last 24 Hours (Table) 02/10/19 13:46 Anaerobic Culture - Final Foot - Left Anaerobic Gm Negative Bacilli Assessment and Plan (1) Partial nontraumatic amputation of left foot Current Visit: Yes Status: Acute Code(s): Z89.432 - ACQUIRED ABSENCE OF LEFT FOOT SNOMED Code(s): 491148398 (2) COPD (chronic obstructive pulmonary disease) Current Visit: No Status: Acute Code(s): J44.9 - CHRONIC OBSTRUCTIVE PULMONARY DISEASE, UNSPECIFIED SNOMED Code(s): 53673801 (3) Peripheral vascular disease Current Visit: No Status: Acute Code(s): I73.9 - PERIPHERAL VASCULAR DISEASE, UNSPECIFIED SNOMED Code(s): 566875242 Plan: We'll continue to follow with [facility] and wound care. Appreciate multiple inputs. CBC and CMP in a.m. She orders otherwise. Time with Patient: Greater than 30
[2019-02-15] MEDS: DIAZEPAM 5 MG TAB PO SCH ×2 (07:50→22:12)
[2019-02-15] MEDS: GABAPENTIN 300 MG CAP PO SCH ×3 (07:51→22:12)
[2019-02-15] MEDS: SERTRALINE 100 MG TAB PO SCH (07:51)
[2019-02-15] MEDS: NICOTINE 21MG/24HR PATCH TRANSDERM SCH (07:52)
[2019-02-15] MEDS: HEPARIN SODIUM,PORCINE 5,000 UNIT/ML 1 ML VIAL SQ SCH ×2 (07:52→22:12)
[2019-02-15] MEDS: LORATADINE 10 MG TAB PO SCH (07:52)
[2019-02-15] MEDS: PANTOPRAZOLE 40 MG TABLET PO SCH (07:52)
[2019-02-15 08:17] LABS: African American GFR (CKD) >90 (>60 ml/min/1.73 sqM); Non-African American GFR(CKD) 80 (>60 ml/min/1.73 sqM)
[2019-02-15 10:45] VITALS: BMI 21.6
[2019-02-15] MEDS: MULTIVITAMINS, THERA 1 EACH TAB PO SCH (12:38)
[2019-02-15] MEDS: ACETAMINOPHEN TAB 500 MG TAB PO PRN (12:43)
--- NOTE | 2019-02-15 13:00 | P.PN ---
Subjective Progress Note Date: 02/15/19 Patient seen and examined. Overall doing well. Well-controlled pain of the left lower extremity. Patient denies any shortness of breath or chest pain. Objective - Vital Signs Vital signs: Vital Signs Temp 98.1 F 02/15/19 04:35 Pulse 75 02/15/19 04:35 Resp 20 02/15/19 07:57 BP 103/55 02/15/19 04:35 Pulse Ox 92 L 02/15/19 04:35 Intake & Output 02/14/19 02/15/19 02/15/19 18:59 06:59 18:59 Intake Total 1080 Output Total 1000 1600 Balance 80 -1600 Weight 74.4 kg Intake: Oral 1080 Output: Urine 1000 1600 Other: Voiding Method Urinal Urinal # Bowel Movements 0 - Exam General appearance: The patient is alert, oriented, in no acute distress. HET: Head is normocephalic and atraumatic.. Heart: S1 S2. Regular rate and rhythm. Lungs: No crackles or wheezes are heard. Abdomen: Soft, nontender, nondistended with bowel sounds. Extremities: Normal skin color and turgor. Left lower extremity wound VAC in place with good suction. Clean and dry with no leaks - Labs CBC & Chem 7: 02/14/19 06:14 02/15/19 07:35 Labs: Microbiology - Last 24 Hours (Table) 02/10/19 13:46 Anaerobic Culture - Final Foot - Left Anaerobic Gm Negative Bacilli Assessment and Plan Assessment: Status post transmetatarsal amputation revision and wound VAC placement for nonhealing left lower extremity wound. Acute on chronic anemia, initial hemoglobin likely partially hemoconcentrated. Continue to follow labs. Plan: Continue current therapy as ordered. Continue wound VAC. The plan is for the patient to return to OR on Friday with subsequent discharge with wound VAC in place for 7-10 days The above dictated assessment and findings were discussed with Dr. Farah. The impression and plan of care have been directed as dictated.
[2019-02-15] MEDS: SODIUM CHLORIDE 0.9% 1,000 ML IV SCH (20:45)
[2019-02-15] MEDS: SODIUM CHLORIDE 0.9% 250 ML IV SCH ×7 (20:46→22:34)
[2019-02-15] MEDS: ATORVASTATIN 20 MG TAB PO SCH (22:12)
[2019-02-15] MEDS: LEVOFLOXACIN 500 MG TAB PO SCH (22:12)
--- NOTE | 2019-02-15 22:33 | P.PN ---
Subjective Progress Note Date: 02/15/19 63-year-old male has multiple medical troubles including severe peripheral vascular disease and a history of gout. The patient has been following with the vascular surgeon as well as the wound healing Center regarding a nonhealing ulceration to his left foot. Due to gangrenous changes he did have amputation to the left great toe. An open ulceration continued and there was evidence of exposure of the first metatarsal. Local wound care was being utilized in the wound VAC was being attempted. The patient presented to the wound center where he has been receiving ongoing care, in August the patient however is evidence of extensive gangrenous change of the foot was sent to emergency center at admission through his primary care physician.At that time he was seen by vascular surgery and transmetatarsal amputation was performed with a potential conversion to a [id number] amputation if he did not respond well. He fortunately has been doing relatively well with the negative pressure therapy system being applied to the transmetatarsal amputation site. He did require 1 bony revision because of exposure to metatarsal head. They have been showing some improvement. Gen. the patient was starting to have some improvement but he then developed some significant swelling to his right leg distally related to the prior incision from his vascular bypass. Apparently he was seen in the o utpatient setting and aspiration was performed MRSA was isolated. He doesn't. He was placed on some oral antibiotic therapy but despite this the leg worsened became more tight warm erythematous and painful and he noticed that there was also evidence of some swelling to the more proximal aspect of his thigh at the more cephalad aspect of his bypass. The patient was found no evidence of abscess and retained foreign material that after surgical debridement and a course of antibiotic therapy eventually improved. Overs continue to have ongoing difficulties to the left foot transmetatarsal amputation site. There is again some bony exposure evidence of ongoing infection and constantly is brought to hospital and seen by the vascular surgeon in he's been taking the operative the debridement of the transmetatarsal site. Some bony debridement did occur sensor was bony exposure. The patient is postoperative and seems to be doing relatively well. He has had ongoing weight loss, his mood is poor after the of his . 02/12/2019 the patient's mood is somewhat improved today. His family is been by and brought him some food and treats and this seems to have improved his mood. He has been evaluated by the vascular surgeon again today. Wound VAC is in place. His pain is definitely improved which likely has impacted his affect. 02/15/2019 patient continues to have improvement of his status. He is awake alert and interactive with clear mentation which is all considerably improved from admission. His mood is also considerably improved. His pain is improved. He still working with his daughter to go to rehab and then to become independent again. The case is discussed with his vascular surgeon and the placental product will be placed in the OR tomorrow, wound VAC will be reapplied and likely then discharged to the rehab facility. Objective - Vital Signs Vital signs: Vital Signs Temp 97.1 F L 02/15/19 14:05 Pulse 85 02/15/19 18:08 Resp 18 02/15/19 16:00 BP 100/52 02/15/19 18:08 Pulse Ox 92 L 02/15/19 14:05 Intake & Output 02/15/19 02/15/19 02/16/19 06:59 18:59 06:59 Intake Total 950 Output Total 1600 Balance -1600 950 Weight 74.4 kg Intake: Oral 950 Output: Urine 1600 Other: Voiding Method Urinal # Voids 3 # Bowel Movements 0 - Exam 63-year-old male quite uncomfortable HEENT: Anicteric conjunctiva are pink and moist nasal mucosa grossly intact without significant lesions, there is no thrush. Neck: The neck is supple without significant lymphadenopathy or thyromegaly. Lungs: Good bilateral air entry without significant crackles or wheezing. There is no significant bronchial sounds. There is no egophony or dullness. Heart: Regular rate and rhythm with an audible S1-S2, no S3 no S4. There is no significant murmur click or rub, PMI was nondisplaced. Abdomen: Positive bowel sounds soft and nontender without palpable masses or organomegaly. There was no guarding or rebound. Extremities: The upper extremities have no evidence of any distinct lesions. The right lower extremity has healed from the recent infections Left lower extremity has evidence of the transmetatarsal amputation site. There is a postoperative wound VAC is in place is not removed, the surgeon notes further bony debridement. The swelling erythema to the foot seems to be improved from the last evaluation. Neuro: Awake alert oriented to person place and time. There are no acute new gross focal sensory motor deficits. - Labs CBC & Chem 7: 02/14/19 06:14 02/15/19 07:35 Labs: Laboratory Results WBC 10.5 k/uL (3.8-10.6) 02/14/19 06:14 RBC 3.70 m/uL (4.30-5.90) L 02/14/19 06:14 Hgb 9.1 gm/dL (13.0-17.5) L 02/14/19 06:14 Hct 29.9 % (39.0-53.0) L 02/14/19 06:14 MCV 80.9 fL (80.0-100.0) 02/14/19 06:14 MCH 24.7 pg (25.0-35.0) L 02/14/19 06:14 MCHC 30.6 g/dL (31.0-37.0) L 02/14/19 06:14 RDW 14.8 % (11.5-15.5) 02/14/19 06:14 Plt Count 387 k/uL (150-450) 02/14/19 06:14 Neutrophils % 60 % 02/09/19 16:03 Lymphocytes % 26 % 02/09/19 16:03 Monocytes % 9 % 02/09/19 16:03 Eosinophils % 2 % 02/09/19 16:03 Basophils % 1 % 02/09/19 16:03 Neutrophils # 3.1 k/uL (1.3-7.7) 02/09/19 16:03 Lymphocytes # 1.4 k/uL (1.0-4.8) 02/09/19 16:03 Monocytes # 0.5 k/uL (0-1.0) 02/09/19 16:03 Eosinophils # 0.1 k/uL (0-0.7) 02/09/19 16:03 Basophils # 0.1 k/uL (0-0.2) 02/09/19 16:03 Hypochromasia Slight 02/14/19 06:14 Sodium 139 mmol/L (137-145) 02/14/19 06:14 Potassium 3.6 mmol/L (3.5-5.1) 02/14/19 06:14 Chloride 99 mmol/L (98-107) 02/14/19 06:14 Carbon Dioxide 35 mmol/L (22-30) H 02/14/19 06:14 Anion Gap 5 mmol/L 02/14/19 06:14 BUN 12 mg/dL (9-20) 02/14/19 06:14 Creatinine 1.00 mg/dL (0.66-1.25) 02/15/19 07:35 Est GFR (CKD-EPI)AfAm >90 (>60 ml/min/1.73 sqM) 02/15/19 07:35 Est GFR (CKD-EPI)NonAf 80 (>60 ml/min/1.73 sqM) 02/15/19 07:35 Glucose 79 mg/dL (74-99) 02/14/19 06:14 Plasma Lactic Acid [place] 1.7 mmol/L (0.7-2.0) 02/09/19 16:03 Calcium 6.9 mg/dL (8.4-10.2) L 02/14/19 06:14 Total Bilirubin 0.5 mg/dL (0.2-1.3) 02/09/19 16:03 AST 55 U/L (17-59) 02/09/19 16:03 ALT 30 U/L (21-72) 02/09/19 16:03 Alkaline Phosphatase 91 U/L (38-126) 02/09/19 16:03 Total Protein 6.8 g/dL (6.3-8.2) 02/09/19 16:03 Albumin 3.1 g/dL (3.5-5.0) L 02/09/19 16:03 Vancomycin Trough 26.5 ug/mL 02/14/19 01:03 Microbiology 02/10/19 13:46 Foot - Left Anaerobic Culture - Final Anaerobic Gm Negative Bacilli 02/10/19 13:46 Foot - Left Gram Stain - Final 02/10/19 13:46 Foot - Left Wound Culture - Final Staphylococcus aureus Assessment and Plan (1) MRSA infection Narrative/Plan: 64-year-old man presents to Hospital under the care of these vascular surgery team because of the ongoing difficulty with his left foot transmetatarsal amputation site. Is evidence of worsening infection, and evidence of bony exposure. He is damaging the operating room is had further debridement. The patient will be going to rehab after his discharge metoprolol some further improvement. He understands the significant needs that he has a this point and that include antibiotic therapy, offloading of the site, smoking cessation, and improved nutrition to allow healing. Hopefully by going to rehab this will allow several these goals to occur. Antibiotic therapy has been initiated with vancomycin and Levaquin based on his prior cultures occur cultures will further help direct antibiotic therapy the time of his discharge. 02/12/2019 the patient is feeling slightly better. Wound culture showing some staph he will continue on the current antibiotic therapy of Levaquin and vancomycin until final culture results are available. Goal will be for the patient to go to rehab to receive his course of antibiotics, local wound care which includes a wound VAC. The patient is expressing that maybe would like to go home however he is failed care in the home setting for quite some time. His daughter will be back and also will help convince him of the importance of going to the care facility. 02/15/2019 the patient has had improvement in the status status post a recent surgical debridement to his foot. With the course of antibiotic therapy. The cultures are not finalized with MSSA) negative bacilli. The patient will h ave the vancomycin and transitioned to Ancef 2 g IV piggyback every 8 hours and will continue Levaquin for now. Catheter has been requested to complete 2 weeks of the Ancef at the rehab facility [facility] presenting for his local wound care, physical conditioning and his antibiotic therapy. Current Visit: Yes Status: Acute Code(s): A49.02 - METHICILLIN RESIS STAPH INFECTION, UNSP SITE SNOMED Code(s): 972689520 (2) Partial nontraumatic amputation of left foot Current Visit: Yes Status: Acute Code(s): Z89.432 - ACQUIRED ABSENCE OF LEFT FOOT SNOMED Code(s): 113356132 (3) Atherosclerosis of ute arteries of left leg with ulceration of other part of foot Current Visit: No Status: Acute Priority: Medium Code(s): I70.245 - ATHSCL [place] ARTERIES OF LEFT LEG W ULCERATION OTH PRT FOOT SNOMED Code(s): 126574990497438
[2019-02-16] MEDS: MORPHINE SULFATE 2 MG/ML SYRINGE IVP PRN (03:27)
[2019-02-16] MEDS ORDERED: VANCOMYCIN TROUGH DUE 1 EACH MISC MISCELLANE ONE (05:00)
[2019-02-16 05:47] LABS: Albumin 2.5 g/dL (3.5-5.0); Calcium 7.3 mg/dL (8.4-10.2); Potassium 4.4 mmol/L (3.5-5.1); Total Bilirubin 0.3 mg/dL (0.2-1.3); Total Protein 5.8 g/dL (6.3-8.2)
[2019-02-16 06:14] LABS: HCT 29.8 % (39.0-53.0); HGB 9.4 gm/dL (13.0-17.5); Hypochromasia Moderate; MCH 25.9 pg (25.0-35.0); MCHC 31.7 g/dL (31.0-37.0); MCV 81.8 fL (80.0-100.0); Mean Platelet Volume 6.4; Platelet Count 327 k/uL (150-450); RBC 3.64 m/uL (4.30-5.90); RDW 14.4 % (11.5-15.5); WBC 11.6 k/uL (3.8-10.6)
[2019-02-16] MEDS: DIAZEPAM 5 MG TAB PO SCH ×2 (07:57→21:28)
[2019-02-16] MEDS: GABAPENTIN 300 MG CAP PO SCH ×3 (07:57→21:29)
[2019-02-16] MEDS: HEPARIN SODIUM,PORCINE 5,000 UNIT/ML 1 ML VIAL SQ SCH ×2 (07:58→21:29)
[2019-02-16] MEDS: LORATADINE 10 MG TAB PO SCH (07:58)
[2019-02-16] MEDS: SERTRALINE 100 MG TAB PO SCH (07:58)
[2019-02-16] MEDS: PANTOPRAZOLE 40 MG TABLET PO SCH (08:01)
[2019-02-16] MEDS: NICOTINE 21MG/24HR PATCH TRANSDERM SCH (08:06)
[2019-02-16] MEDS: IV FLUID CONTINUATION 1,000 ML IV ONE ×3 (08:50→12:38)
[2019-02-16] MEDS ORDERED: ONDANSETRON 4 MG/2 ML VIAL IVP ONE (09:20)
[2019-02-16] MEDS ORDERED: PROPOFOL 10 MG/ML 20 ML VIAL IV ONE (09:21)
[2019-02-16] MEDS ORDERED: KETAMINE 10 MG/ML 20 ML VIAL ONE (09:21)
[2019-02-16] MEDS ORDERED: MIDAZOLAM 2 MG/2 ML VIAL ONE (09:21)
[2019-02-16] MEDS ORDERED: fentaNYL (PF) 50 MCG/ML 2 ML AMP ONE (09:21)
--- NOTE | 2019-02-16 10:22 | P.OP ---
Date of Procedure: 02/16/19 Description of Procedure: Preoperative diagnosis: Open left foot wound, status post left transmetatarsal amputation, peripheral arterial disease Postoperative diagnosis: Same Procedure: #1 sharp excisional debridement of open left foot wound to the bone, resultant wound measuring 6 x 4 x 1.4 m #2 placement of Mimedex allograft, amnio fill and epicord #3 placement of wound VAC Surgeon: Neha Farah D.O. EBL: Minimal IV fluids: 700 mL Anesthesia: Monitored IV sedation per anesthesia Urine output: Not measured Drains: Wound VAC placement Complications: None immediately apparent Condition: Stable, to PACU Operative indication and findings: The patient is a 64-year-old male with a previous left transmetatarsal amputation for gangrenous toes. He continued to have nonhealing of his transmetatarsal amputation with resultant exposed bone. He previously underwent incision and drainage along with sharp excisional debridement and returns today for placement of growth factor allograft tissue. Risks and benefits were discussed. The patient seemingly understood and was willing to proceed. Procedure in detail: The patient was taken to the operative suite and placed in supine position. The left foot was prepped and draped in usual sterile fashion. A preprocedure timeout performed, all parties were in agreement. The area was copiously irrigated and washed out. Sharp excisional debridement was performed with curette and scalpel of the surrounding tissue as well as of the bone to remove any synovium exposed. This was all debrided to healthy granulation appearing tissue. The wound was then again copiously irrigated with sterile saline. At that point the amnio fill was rehydrated with saline into a slurry and placed into the areas of the depth wound. After that a 3 x 5 sheet of EpiCord was placed overlying the bone and sutured into place using 3-0 chromic. An Adaptic was placed overlying this and also sutured in place utilizing 3-0 chromic. The wound VAC was cut to size. A skin protective barrier was placed and the wound VAC was initiated to good suction without any evidence of leak. The patient was allowed awaken from his anesthesia and transferred to PACU in stable condition having tolerated the procedure well. From my stand point the patient may be discharged today to a rehab facility. He is to keep this wound VAC in place for 7-10 days and follow-up with me in 1 week. If the wound VAC itself becomes malfunctioning or no longer maintaining suction the sponge portion may be removed to the level of the Adaptic but it is imperative the Adaptic stay in place.
[2019-02-16] MEDS: MORPHINE SULFATE 4 MG/ML SYRINGE IVP ONE ×4 (10:27→11:04)
[2019-02-16] MEDS ORDERED: MIDAZOLAM 2 MG/2 ML VIAL IVP ONE (10:52)
[2019-02-16] MEDS: SODIUM CHLORIDE 0.9% 1,000 ML IV SCH (12:43)
[2019-02-16] MEDS: MULTIVITAMINS, THERA 1 EACH TAB PO SCH (12:43)
[2019-02-16] MEDS: HYDROcodone/APAP 7.5-325MG 1 EACH TAB PO PRN ×2 (12:43→19:52)
[2019-02-16] MEDS: ACETAMINOPHEN TAB 500 MG TAB PO PRN (17:14)
[2019-02-16] MEDS: LEVOFLOXACIN 500 MG TAB PO SCH (21:28)
[2019-02-16] MEDS: ATORVASTATIN 20 MG TAB PO SCH (21:29)
--- NOTE | 2019-02-16 22:05 | P.PN ---
Subjective Principal diagnosis: Wound care Anticipate transfer to rehab in the a.m. Appropriate surgical debridement Watch blood pressure control.. Objective - Vital Signs Vital signs: Vital Signs Temp 97.9 F 02/16/19 12:00 Pulse 60 02/16/19 16:00 Resp 16 02/16/19 16:00 BP 72/42 02/16/19 17:19 Pulse Ox 100 02/16/19 19:35 Intake & Output 02/16/19 02/16/19 02/17/19 06:59 18:59 06:59 Intake Total 600 Output Total 1100 1276 Balance -1100 -676 Intake: IV 600 Output: Urine 1100 1275 Stool 0 Estimated Blood Loss 1 Other: Voiding Method Urinal # Bowel Movements 1 - Constitutional General appearance: Present: no acute distress - EENT Eyes: Absent: abnormal pupil - Neck Neck: Absent: lymphadenopathy - Respiratory Respiratory: bilateral: CTA - Cardiovascular Rhythm: regular Heart sounds: normal: S1, S2 Abnormal Heart Sounds: Absent: S3 Gallop - Integumentary Integumentary: Present: cellulitis - Psychiatric Psychiatric: Present: A&O x's 3 - Labs CBC & Chem 7: 02/16/19 05:04 02/16/19 05:04 Labs: Abnormal Lab Results - Last 24 Hours (Table) 02/16/19 02/16/19 Range/Units 05:04 05:04 WBC 11.6 H (3.8-10.6) k/uL RBC 3.64 L (4.30-5.90) m/uL Hgb 9.4 L (13.0-17.5) gm/dL Hct 29.8 L (39.0-53.0) % Sodium 136 L (137-145) mmol/L BUN 22 H (9-20) mg/dL Calcium 7.3 L (8.4-10.2) mg/dL Alkaline Phosphatase 143 H (38-126) U/L Total Protein 5.8 L (6.3-8.2) g/dL Albumin 2.5 L (3.5-5.0) g/dL Assessment and Plan (1) Partial nontraumatic amputation of left foot Current Visit: Yes Status: Acute Code(s): Z89.432 - ACQUIRED ABSENCE OF LEFT FOOT SNOMED Code(s): 591267268 (2) COPD (chronic obstructive pulmonary disease) Current Visit: No Status: Acute Code(s): J44.9 - CHRONIC OBSTRUCTIVE PULMO NARY DISEASE, UNSPECIFIED SNOMED Code(s): 60021489 (3) Peripheral vascular disease Current Visit: No Status: Acute Code(s): I73.9 - PERIPHERAL VASCULAR DISEASE, UNSPECIFIED SNOMED Code(s): 601315480
[2019-02-16 23:21] VITALS: RESP 20
[2019-02-17] MEDS: SODIUM CHLORIDE 0.9% 1,000 ML IV SCH ×2 (00:22→11:06)
[2019-02-17] MEDS: HYDROcodone/APAP 7.5-325MG 1 EACH TAB PO PRN ×2 (05:23→11:05)
[2019-02-17 06:37] VITALS: BP 114/62; PULSE 78; TEMP 98.3
[2019-02-17] MEDS: GABAPENTIN 300 MG CAP PO SCH (08:08)
[2019-02-17] MEDS: DIAZEPAM 5 MG TAB PO SCH (08:08)
[2019-02-17] MEDS: HEPARIN SODIUM,PORCINE 5,000 UNIT/ML 1 ML VIAL SQ SCH (08:09)
[2019-02-17] MEDS: LORATADINE 10 MG TAB PO SCH (08:09)
[2019-02-17] MEDS: SERTRALINE 100 MG TAB PO SCH (08:10)
[2019-02-17] MEDS: PANTOPRAZOLE 40 MG TABLET PO SCH (08:13)
[2019-02-17] MEDS: MULTIVITAMINS, THERA 1 EACH TAB PO SCH (08:13)
[2019-02-17] MEDS: NICOTINE 21MG/24HR PATCH TRANSDERM SCH (08:13)
--- NOTE | 2019-02-17 14:01 | P.DS ---
Providers Date of admission: 02/09/19 15:11 Expected date of discharge: 02/17/19 Attending physician: Malik Bui Consults: 02/09/19 15:42 Consult Physician Routine Consulting Provider: Tevin Morel Consult Reason/Comments: vascular wound Do you want consulting provider notified?: Already Contacted Placement Type Exists?: Yes 02/09/19 15:46 Consult Physician Routine Consulting Provider: Lucas Arellano Consult Reason/Comments: Foot infection and needs ABT Do you want consulting provider notified?: Yes Primary care physician: Stated None Hospital Course: Final Diagnoses: (1) Partial nontraumatic amputation of left foot Current Visit: Yes Status: Acute Code(s): Z89.432 - ACQUIRED ABSENCE OF LEFT FOOT SNOMED Code(s): 110222753 (2) COPD (chronic obstructive pulmonary disease) Current Visit: No Status: Acute Code(s): J44.9 - CHRONIC OBSTRUCTIVE PULMONARY DISEASE, UNSPECIFIED SNOMED Code(s): 19969460 (3) Peripheral vascular disease Current Visit: No Status: Acute Code(s): I73.9 - PERIPHERAL VASCULAR DISEASE, UNSPECIFIED SNOMED Code(s): 491077609 Hospital course: This a 64-year-old gentleman with peripheral arterial disease ,status post open left foot wound, status post left transmetatarsal amputation. Significant clinical improvement .Cleared by all consults for discharge. Patient is being discharged to [facility] subacute rehab in a stable condition with guarded prognosis. The impression and plan of care has been dictated as directed. : I performed a history and examination of this patient, discussed the same with the dictator. I agree with the dictator's note ,documented as a scribe. Any additional findings or plans will be noted. Patient Condition at Discharge: Stable Plan - Discharge Summary Discharge Rx Participant: No New Discharge Prescriptions: New Nicotine 21Mg/24Hr Patch [Habitrol] 1 patch TRANSDERM DAILY #30 patch Levofloxacin [Levaquin] 500 mg PO 2300 #10 tab Continue Gabapentin [Neurontin] 300 mg PO TID Atorvastatin [Lipitor] 20 mg PO HS Sertraline [Zoloft] 150 mg PO DAILY #30 tab Diazepam [Valium] 10 mg PO BID Cetirizine HCl [Zyrtec] 10 mg PO DAILY HYDROcodone/APAP 7.5-325MG [[place] 7.5-325] 1 tab PO Q6HR PRN #12 tab PRN Reason: Pain Discharge Medication List Atorvastatin [Lipitor] 20 mg PO HS 11/18/18 [History] Gabapentin [Neurontin] 300 mg PO TID 11/18/18 [History] Sertraline [Zoloft] 150 mg PO DAILY #30 tab 12/04/18 [Rx] Cetirizine HCl [Zyrtec] 10 mg PO DAILY 02/09/19 [History] Diazepam [Valium] 10 mg PO BID 02/09/19 [History] HYDROcodone/APAP 7.5-325MG [[place] 7.5-325] 1 tab PO Q6HR PRN #12 tab 02/17/19 [Rx] Levofloxacin [Levaquin] 500 mg PO 2300 #10 tab 02/17/19 [Rx] Nicotine 21Mg/24Hr Patch [Habitrol] 1 patch TRANSDERM DAILY #30 patch 02/17/19 [Rx] Follow up Appointment(s)/Referral(s): Neha Farah DO [STAFF PHYSICIAN] - 1 Week Activity/Diet/Wound Care/Special Instructions: He is to keep this wound VAC in place for 7-10 days and follow-up with Dr Farah in 1 week. If the wound VAC itself becomes malfunctioning or no longer maintaining suction the sponge portion may be removed to the level of the Adaptic but it is imperative the Adaptic stay in place. Please call the office with any questions or concerns [phone] [facility] Discharge Disposition: TRANSFER TO SNF/ECF
--- NOTE | 2019-02-22 09:52 | CDI ---
Documentation Clarification Form Date: 02/22/19 From: Beverley Brown Phone: If you have a question about this query, please contact Karen Mcintosh, Planning Management It Specialist at [phone] between 8am and 5pm. Admit Date: 02/09/19 Discharge Date: 02/17/19 Patient Name: Horacio Garza Visit Number: [id number] ATTENTION: The Clinical Documentation Specialists (CDI) and [facility] Coding Staff appreciate your assistance in clarifying documentation. Please respond to the clarification below the line at the bottom and electronically sign. The CDI & [facility] Coding staff will review the response and follow-up if needed. Please note: Queries are made part of the Legal Health Record. If you have any questions, please contact the author of this message via ITS. Dear Dr. Malik Bui, The final diagnosis of the pathology report states: Gangrene with ulcer and acute inflammation, abscess and intravascular thrombi with dystrophic calcifications. Underlying bone with acute osteomyelitis. Patient history/risk factors: Previous hx of osteomylelitis with left transmetatarsal amputation. Clinical Indicators: Nonhealing left lower extremity wound Treatment: Revision of left transmetatarsal amputation with placement of wound vac In your professional opinion, do you agree with the pathology report specifying osteomyelitis as acute? Yes No Other (please specify) Unable to determine MTDD
--- NOTE | 2019-02-22 10:27 | CDI ---
Documentation Clarification Form Date: 02/22/19 From: Beverley Brown Phone: If you have a question about this query, please contact Karen Mcintosh, Jet Man at [phone] between 8am and 5pm. Admit Date: 02/09/19 Discharge Date: 02/17/19 Patient Name: Horacio aGrza Visit Number: [id number] ATTENTION: The Clinical Documentation Specialists (CDI) and [facility] Coding Staff appreciate your assistance in clarifying documentation. Please respond to the clarification below the line at the bottom and electronically sign. The CDI & [facility] Coding staff will review the response and follow-up if needed. Please note: Queries are made part of the Legal Health Record. If you have any questions, please contact the author of this message via ITS. Dear Dr. Neha Farah, Documentation in the Operative Report included: History/Risk factors: Pre-Operative & postoperative Diagnosis: Non-healing left foot wound, previous transmetartarsal amputation Clinical Indicators: infection of amputation stump with gangrene Treatment: Revision of left transmetatarsal amputation placement of wound vac In order to capture the severity of condition, please specify the following: Which toes were revised and clarify the what portion of the toe was removed? He had no toes. They were removed in the original TMA a few months ago. AMEE
== END 2019-02-17 15:07 | DRG 474 ==
LOC: 3SCARD 15:11 → 4MS4W 02-13 21:29
PROVIDERS: ADMIT Family Medicine; ATTEND Family Medicine
PROC: 0Y6N0Z0 Detachment at Left Foot, Complete, Open Approach (ICD-10-PCS; principal; 2019-02-10 13:00)
PROC: 0QR Lower Bones, Replacement (ICD-10-PCS; 2019-02-16)
PROC: 05HD33Z Insertion of Infusion Device into Right Cephalic Vein, Percutaneous Approach (ICD-10-PCS; 2019-02-16)
PROC: 0QBM0ZZ Excision of Left Tarsal, Open Approach (ICD-10-PCS; 2019-02-16 07:30)
DX: T87.44 Infection of amputation stump, left lower extremity (principal); A41.9 Sepsis, unspecified organism; J96.11 Chronic respiratory failure with hypoxia; T87.54 Necrosis of amputation stump, left lower extremity; I70.245 Atherosclerosis of native arteries of left leg with ulceration of other part of foot; B95.61 Methicillin susceptible Staphylococcus aureus infection as the cause of diseases classified elsewhere; J44.9 Chronic obstructive pulmonary disease, unspecified; D64.9 Anemia, unspecified; F41.9 Anxiety disorder, unspecified; K21.9 Gastro-esophageal reflux disease without esophagitis; M19.90 Unspecified osteoarthritis, unspecified site; H91.90 Unspecified hearing loss, unspecified ear; R26.9 Unspecified abnormalities of gait and mobility; F17.210 Nicotine dependence, cigarettes, uncomplicated; Z71.6 Tobacco abuse counseling; Z99.81 Dependence on supplemental oxygen; Z79.899 Other long term (current) drug therapy; Z86.718 Personal history of other venous thrombosis and embolism; Z87.01 Personal history of pneumonia (recurrent); Z89.412 Acquired absence of left great toe; Z89.422 Acquired absence of other left toe(s); Z86.19 Personal history of other infectious and parasitic diseases; Z86.14 Personal history of Methicillin resistant Staphylococcus aureus infection; Z87.39 Personal history of other diseases of the musculoskeletal system and connective tissue; Z98.890 Other specified postprocedural states; Z95.828 Presence of other vascular implants and grafts; Z88.5 Allergy status to narcotic agent; Z82.49 Family history of ischemic heart disease and other diseases of the circulatory system; Z83.2 Family history of diseases of the blood and blood-forming organs and certain disorders involving the immune mechanism
CPT/HCPCS: 36410; 76937; 80048; 80053; 80202; 82565; 83605; 85025; 85027; 87070; 87075; 87077; 87186; 87205; 88304; 88311

== ENCOUNTER 2019-02-20 09:14 | Emergency (ER) | payer MEDICARE ==
[2019-02-20] MEDS ORDERED: SODIUM CHLORIDE 0.9% 1,000 ML IV STA (09:43)
[2019-02-20] MEDS ORDERED: KETOROLAC 30 MG/ML 1 ML VIAL IVP STA (09:43)
--- NOTE | 2019-02-20 09:46 | ED ---
Chest Pain HPI - General Chief Complaint: Chest Pain Stated Complaint: chest pain Time Seen by Provider: 02/20/19 09:14 Source: patient, EMS, RN notes reviewed, old records reviewed Mode of arrival: EMS Limitations: no limitations - History of Present Illness Initial Comments: This is a 64-year-old male who presents from a group home by EMS with compl aints of chest pain this morning. He states was sharp right sided for the most part increase with laying on his right side moderate in severity no cough or phlegm production he denies any history of heart disease. He currently is being treated for a left foot infection he has a wound VAC in place. MD Complaint: chest pain - Related Data Home Medications Medication Instructions Recorded Confirmed Atorvastatin [Lipitor] 20 mg PO HS@2100 11/18/18 02/20/19 Cetirizine HCl [Zyrtec] 10 mg PO DAILY@0900 02/09/19 02/20/19 Bismuth Subsalicylate 524 mg PO Q4H PRN 02/20/19 02/20/19 [Pepto-Bismol] Clotrimazole/Betamethasone Dip 1 applic TOPICAL BID 02/20/19 02/20/19 [Lotrisone Cream] Diazepam [Valium] 10 mg PO BID 02/20/19 02/20/19 HYDROcodone/APAP 7.5-325MG [[place] 1 tab PO Q4H PRN 02/20/19 02/20/19 7.5-325] Multivitamins, Thera [Multivitamin 1 tab PO DAILY@0900 02/20/19 02/20/19 (formulary)] Ondansetron [Zofran] 4 mg PO TID PRN 02/20/19 02/20/19 Sertraline [Zoloft] 50 mg PO DAILY@0900 02/20/19 02/20/19 Sertraline [Zoloft] 100 mg PO DAILY@0900 02/20/19 02/20/19 Previous Rx's Medication Instructions Recorded Nicotine 21Mg/24Hr Patch [Habitrol] 1 patch TRANSDERM DAILY #30 patch 02/17/19 ceFAZolin (PMX-bag) [KEFZOL 2,000 mg IVPB Q8HR #42 bag 02/17/19 (PMX-bag)] Allergies Allergy/AdvReac Type Severity Reaction Status Date / Time hydromorphone [From Dilaudid] AdvReac Hallucinati Verified 02/20/19 12:50 ons Review of Systems ROS Statement: Those systems with pertinent positive or pertinent negative responses have been documented in the HPI. ROS Other: All systems not noted in ROS Statement are negative. EKG Findings - EKG Results: EKG: interpreted by MASOOD, sinus rhythm (Sinus rhythm 89. Interval 140 QRS duration 82 QT since QTC 372/452 this is normal. EKG.) Past Medical History Past Medical History: COPD, Deep Vein Thrombosis (DVT), GERD/Reflux, Hearing Disorder / Deafness, Osteoarthritis (OA), Pneumonia, Vascular Disorder Additional Past Medical History / Comment(s): COPD, chronic hypoxic respiratory failure maintained on oxygen 3 L per minute nasal cannula, previous DVT of the right lower extremity thousand and 8, severe peripheral vascular disease, osteomyelitis of the toe, previous left big toe amputation and previous history of left transmetatarsal amputation History of Any Multi-Drug Resistant Organisms: CRE, MRSA Date of last positivie culture/infection: 11/21/18-MRSA MDRO Source:: Right Leg Past Surgical History: No Surgical Hx Reported, Orthopedic Surgery Additional Past Surgical History / Comment(s): Bilateral femoral gluteal bypass surgery, arthroscopic left knee surgery, bilateral inguinal hernia repair, left transmetatarsal amputation of the great toe, Removal right pinky bone Past Anesthesia/Blood Transfusion Reactions: No Reported Reaction Past Psychological History: Anxiety Smoking Status: Current every day smoker Past Alcohol Use History: None Reported Past Drug Use History: Marijuana - Past Family History Brother(s) Family Medical History: Coronary Artery Disease (CAD) Additional Family Medical History / Comment(s): heart attack/cabg Father Family Medical History: No Reported History Mother Family Medical History: Deep Vein Thrombosis (DVT) General Exam - General Exam Comments Initial Comments: This is a well-developed asthenic appearing male who is awake alert oriented 3 Limitations: no limitations General appearance: alert, lethargic Head exam: Present: atraumatic, normocephalic, normal inspection Eye exam: Present: normal appearance, PERRL, EOMI. Absent: scleral icterus, conjunctival injection, periorbital swelling ENT exam: Present: mucous membranes dry Neck exam: Present: normal inspection. Absent: tenderness, meningismus, lymphadenopathy Respiratory exam: Present: normal lung sounds bilaterally, chest wall tenderness. Absent: respiratory distress, wheezes, rales, rhonchi, stridor Cardiovascular Exam: Present: regular rate, normal rhythm, normal heart sounds. Absent: systolic murmur, diastolic murmur, rubs, gallop, clicks GI/Abdominal exam: Present: soft, normal bowel sounds. Absent: distended, tenderness, guarding, rebound, rigid Rectal exam: Present: deferred Extremities exam: Present: full ROM, normal capillary refill, other (Foot demonstrating amputation of the toes with a wound VAC in place). Absent: tenderness, pedal edema, joint swelling, calf tenderness Back exam: Present: normal inspection Neurological exam: Present: alert, oriented X3, CN II-XII intact Psychiatric exam: Present: normal affect, normal mood Skin exam: Present: warm, dry, intact, normal color. Absent: rash Course Vital Signs 02/20/19 02/20/19 02/20/19 09:19 10:32 11:00 Temperature 97.5 F L Pulse Rate 92 98 96 Respiratory 20 16 14 Rate Blood Pressure 121/88 120/88 130/81 O2 Sat by Pulse 95 97 98 Oximetry 02/20/19 12:40 Temperature Pulse Rate 98 Respiratory 18 Rate Blood Pressure 118/76 O2 Sat by Pulse 98 Oximetry Chest Pain MDM - MDM I did discuss findings with the patient the presentation consistent with chest wall pain noncardiac etiology of the chest x-ray was unremarkable. Patient did have hypomagnesemia he did get IV replacement. He will be discharged back to his facility. Disposition Clinical Impression: Chest wall syndrome, Costochondritis, Hypomagnesemia Disposition: HOME SELF-CARE Condition: Good Instructions (If sedation given, give patient instructions): Costochondritis (ED), Hypomagnesemia (ED) Is patient prescribed a controlled substance at d/c from ED?: No Referrals: Lm Munoz MD [Primary Care Provider] - 1-2 days
--- NOTE | 2019-02-20 10:45 | XR ---
EXAMINATION TYPE: XR chest 2V DATE OF EXAM: 02/20/2019 HISTORY: Chest Pain. REFERENCE: Previous study dated 11/21/2018. FINDINGS: Lungs are clear. Pleural space are clear. The heart is not enlarged. IMPRESSION: NO ACTIVE INTRATHORACIC ABNORMALITY.
[2019-02-20 10:55] LABS: ALT 14 U/L (21-72); AST 26 U/L (17-59); African American GFR (CKD) >90 (>60 ml/min/1.73 sqM); Albumin 3.3 g/dL (3.5-5.0); Alkaline Phosphatase 143 U/L (38-126); Anion Gap 9 mmol/L; Blood Urea Nitrogen 16 mg/dL (9-20); Carbon Dioxide 32 mmol/L (22-30); Chloride 97 mmol/L (98-107); Creatine Kinase <20 U/L (55-170); Glucose 102 mg/dL (74-99); Magnesium 1.3 mg/dL (1.6-2.3); Non-African American GFR(CKD) >90 (>60 ml/min/1.73 sqM); Potassium 4.3 mmol/L (3.5-5.1); Sodium 138 mmol/L (137-145); Total Bilirubin 0.5 mg/dL (0.2-1.3); Total Protein 7.5 g/dL (6.3-8.2)
[2019-02-20 10:59] LABS: Prothrombin Time 10.9 sec (9.0-12.0)
[2019-02-20 11:03] LABS: Basophils % (A) 0 %; Eosinophils # (A) 0.5 k/uL (0-0.7); Eosinophils % (A) 3 %; HCT 37.7 % (39.0-53.0); Hypochromasia Slight; Lymphocytes # (A) 1.6 k/uL (1.0-4.8); Lymphocytes % (A) 9 %; MCH 24.9 pg (25.0-35.0); MCHC 31.8 g/dL (31.0-37.0); MCV 78.5 fL (80.0-100.0); Monocytes # (A) 0.9 k/uL (0-1.0); Monocytes % (A) 5 %; Neutrophils # (A) 14.2 k/uL (1.3-7.7); Neutrophils % (A) 82 %; Platelet Count 595 k/uL (150-450); RBC 4.81 m/uL (4.30-5.90); RDW 14.6 % (11.5-15.5); WBC 17.3 k/uL (3.8-10.6)
[2019-02-20] MEDS ORDERED: MAGNESIUM SULFATE-D5W PMX 1 GM in DEXTROSE/WATER 1 100ML.BAG IVPB ONE (12:09)
[2019-02-20 12:42] VITALS: RESP 18
[2019-02-20 14:42] VITALS: BP 114/73; PULSE 95; TEMP 98.9
== END 2019-02-20 15:40 | disposition home or self-care (01) ==
LOC: EC 09:14
DX: E83.42 Hypomagnesemia (principal); M94.0 Chondrocostal junction syndrome [Tietze]; L08.9 Local infection of the skin and subcutaneous tissue, unspecified; J44.9 Chronic obstructive pulmonary disease, unspecified; J96.11 Chronic respiratory failure with hypoxia; K21.9 Gastro-esophageal reflux disease without esophagitis; H91.90 Unspecified hearing loss, unspecified ear; M19.90 Unspecified osteoarthritis, unspecified site; F41.9 Anxiety disorder, unspecified; F17.200 Nicotine dependence, unspecified, uncomplicated; Z88.5 Allergy status to narcotic agent; Z79.899 Other long term (current) drug therapy; Z86.14 Personal history of Methicillin resistant Staphylococcus aureus infection; Z89.422 Acquired absence of other left toe(s); Z99.81 Dependence on supplemental oxygen; Z82.49 Family history of ischemic heart disease and other diseases of the circulatory system
CPT/HCPCS: 99285; 96365; 96375; 96361 ×3; 36415; 93005; 83880; 80053; 82550; 83690; 83735; 84484; 85025; 85610; 85730; 71046; J1885; J3475

== ENCOUNTER 2019-05-08 18:54 | Inpatient (IN) | payer MEDICARE ==
[2019-05-08] MEDS ORDERED: ACETAMINOPHEN TAB 500 MG TAB PO STA (19:18)
--- NOTE | 2019-05-08 19:21 | ED ---
General Adult HPI - General Chief complaint: Altered Mental Status Stated complaint: Altered mental status/fall Time Seen by Provider: 05/08/19 19:13 Source: patient, RN notes reviewed Mode of arrival: EMS Limitations: no limitations - History of Present Illness Initial comments: Patient is a pleasant 64-year-old male presenting to the emergency department with complaints of reported altered mental status. Patient is a poor historian and offers limited history. There have been reported hallucinations. Patient reportedly had fever. Patient states he feels fine and has no complaints at this time. Patient denies any cough or dyspnea. No abdominal pain. - Related Data Home Medications Medication Instructions Recorded Confirmed Cetirizine HCl [Zyrtec] 10 mg PO DAILY 02/09/19 04/14/19 Diazepam [Valium] 10 mg PO BID 02/20/19 04/14/19 Previous Rx's Medication Instructions Recorded Benzocaine/Menthol Lozeng [Cepacol 1 each MUCOUS MEM Q2HR PRN lozenge 04/22/19 lozenge] Ciprofloxacin HCl [Cipro] 500 mg PO Q12HR #20 tablet 04/22/19 Diazepam [Valium] 10 mg PO BID #120 tab 04/22/19 HYDROcodone/APAP 10-325MG [[place] 1 each PO Q4H PRN #120 tab 04/22/19 10-325] Mag Hydrox/Al Hydrox/Simeth 30 ml PO Q6HR PRN ml 04/22/19 [Maalox] Nicotine 21Mg/24Hr Patch [Habitrol] 1 patch TRANSDERM DAILY #30 patch 04/22/19 Pregabalin [Lyrica] 75 mg PO BID #60 cap 04/22/19 metroNIDAZOLE [Flagyl] 500 mg PO TID #30 tab 04/22/19 Allergies Allergy/AdvReac Type Severity Reaction Status Date / Time hydromorphone [From Dilaudid] AdvReac Hallucinati Verified 04/14/19 22:06 ons Review of Systems ROS Statement: Those systems with pertinent positive or pertinent negative responses have been documented in the HPI. ROS Other: All systems not noted in ROS Statement are negative. Constitutional: Reports: as per HPI Eyes: Denies: eye pain ENT: Denies: ear pain Respiratory: Denies: cough, dyspnea Cardiovascular: Denies: chest pain Endocrine: Denies: fatigue Gastrointestinal: Denies: abdominal pain Genitourinary: Denies: dysuria Musculoskeletal: Denies: back pain Skin: Denies: rash Neurological: Reports: as per HPI. Denies: weakness Past Medical History Past Medical History: COPD, Deep Vein Thrombosis (DVT), GERD/Reflux, Hearing Disorder / Deafness, Osteoarthritis (OA), Pneumonia, Vascular Disorder Additional Past Medical History / Comment(s): Previous history of GI bleed, previous history of a right medial thigh abscess that was drained and a foreign body was removed and the patient had positive cultures for MRSA, previous peripheral vascular disease with a left fem-pop bypass surgery, severe COPD with FEV1 of 39% of predicted maintained on a combination of Advair and Spiriva, chronic smoker, history of DVT in 2007, history of open wounds at the level of the metatarsal joints with previous amputation transmetatarsal, previous history of osteomyelitis, chronic hypoxic respiratory failure limited on oxygen, history of gout History of Any Multi-Drug Resistant Organisms: CRE, MRSA Date of last positivie culture/infection: 11/21/18-MRSA MDRO Source:: Right Leg Past Surgical History: Orthopedic Surgery Additional Past Surgical History / Comment(s): Bilateral femoral pop bypass surgery, arthroscopic left knee surgery, bilateral inguinal hernia repair, left transmetatarsal amputation of the great toe, Removal right pinky bone,Previous transmetatarsal amputation of the left foot with subsequent revision, fem-pop bypass surgery, incision and drainage of a right mid thigh abscess Past Anesthesia/Blood Transfusion Reactions: No Reported Reaction Past Psychological History: Anxiety Smoking Status: Current every day smoker Past Alcohol Use History: None Reported Past Drug Use History: Marijuana - Past Family History Brother(s) Family Medical History: Coronary Artery Disease (CAD) Additional Family Medical History / Comment(s): heart attack/cabg Father Family Medical History: No Reported History Mother Family Medical History: Deep Vein Thrombosis (DVT) General Exam Limitations: no limitations General appearance: alert, in no apparent distress Head exam: Present: normocephalic Eye exam: Present: normal appearance, PERRL ENT exam: Present: normal oropharynx Neck exam: Present: normal inspection. Absent: meningismus Respiratory exam: Present: rhonchi Cardiovascular Exam: Present: tachycardia GI/Abdominal exam: Present: soft. Absent: tenderness Extremities exam: Present: other (Left BKA. There is mild erythema and purulent discharge had incision site) Neurological exam: Present: alert, CN II-XII intact. Absent: motor sensory deficit Expanded Patient oriented to: Present: person, place. Absent: time Motor strength exam: RUE: 5, LUE: 5, RLE: 5, LLE: 5 Psychiatric exam: Present: normal affect, normal mood Skin exam: Present: erythema (mild erythema incision site left bka) Course Vital Signs 05/08/19 05/08/19 05/08/19 18:58 19:05 19:31 Temperature 99.0 F 101.8 F H Pulse Rate 112 H 110 H Respiratory 18 20 Rate Blood Pressure 134/76 O2 Sat by Pulse 87 L 94 L Oximetry - Reevaluation(s) Reevaluation #1: 05/08/19 20:52 Patient does meet sepsis criteria diagnosed at 2051. Blood culture and lactic acid ordered. IV antibiotics will be ordered. Patient does have appearance of some infection still at left leg. Patient also has COPD with possible early infiltrate. EKG Findings - EKG Comments: EKG Findings:: Sinus tachycardia 110. IN 150. QRS 92. QT 334. QTC 452. Normal axis. Normal QRS. No acute ST change. Medical Decision Making - Medical Decision Making Patient reevaluated. Patient and family updated on results and plan. Family states patient has had some altered mental status somewhat similar to this previously however this is more pronounced. Case was discussed in detail with Dr. Langley, who will admit For Dr. Bui. - Lab Data Result diagrams: 05/08/19 19:18 05/08/19 19:18 Lab Results 05/08/19 05/08/19 05/08/19 Range/Units 18:41 19:18 19:18 WBC 13.0 H (3.8-10.6) k/uL RBC 4.12 L (4.30-5.90) m/uL Hgb 11.3 L (13.0-17.5) gm/dL Hct 35.5 L (39.0-53.0) % MCV 86.0 (80.0-100.0) fL MCH 27.4 (25.0-35.0) pg MCHC 31.9 (31.0-37.0) g/dL RDW 20.1 H (11.5-15.5) % Plt Count 370 (150-450) k/uL Neutrophils % 78 % Lymphocytes % 10 % Monocytes % 8 % Eosinophils % 3 % Basophils % 0 % Neutrophils # 10.1 H (1.3-7.7) k/uL Lymphocytes # 1.3 (1.0-4.8) k/uL Monocytes # 1.0 (0-1.0) k/uL Eosinophils # 0.4 (0-0.7) k/uL Basophils # 0.0 (0-0.2) k/uL Hypochromasia Slight Anisocytosis Moderate PT (9.0-12.0) sec INR (<1.2) APTT (22.0-30.0) sec Sodium 133 L (137-145) mmol/L Potassium 4.2 (3.5-5.1) mmol/L Chloride 93 L (98-107) mmol/L Carbon Dioxide 35 H (22-30) mmol/L Anion Gap 5 mmol/L BUN 24 H (9-20) mg/dL Creatinine 0.72 (0.66-1.25) mg/dL Est GFR (CKD-EPI)AfAm >90 (>60 ml/min/1.73 sqM) Est GFR (CKD-EPI)NonAf >90 (>60 ml/min/1.73 sqM) Glucose 111 H (74-99) mg/dL Plasma Lactic Acid [place] (0.7-2.0) mmol/L Calcium 8.6 (8.4-10.2) mg/dL Total Bilirubin 0.9 (0.2-1.3) mg/dL AST 43 (17-59) U/L ALT 12 (4-49) U/L Alkaline Phosphatase 116 (38-126) U/L Creatine Kinase 39 L (55-170) U/L Troponin I (0.000-0.034) ng/mL Total Protein 7.6 (6.3-8.2) g/dL Albumin 3.3 L (3.5-5.0) g/dL Urine Color Urine Appearance (Clear) Urine pH (5.0-8.0) Ur Specific [place] (1.001-1.035) Urine Protein (Negative) Urine Glucose (UA) (Negative) Urine Ketones (Negative) Urine Blood (Negative) Urine Nitrite (Negative) Urine Bilirubin (Negative) Urine Urobilinogen (<2.0) mg/dL Ur Leukocyte Esterase (Negative) Influenza Type A RNA Not Detected (Not Detectd) Influenza Type B (PCR) Not Detected (Not Detectd) 05/08/19 05/08/19 05/08/19 Range/Units 19:18 19:18 19:18 WBC (3.8-10.6) k/uL RBC (4.30-5.90) m/uL Hgb (13.0-17.5) gm/dL Hct (39.0-53.0) % MCV (80.0-100.0) fL MCH (25.0-35.0) pg MCHC (31.0-37.0) g/dL RDW (11.5-15.5) % Plt Count (150-450) k/uL Neutrophils % % Lymphocytes % % Monocytes % % Eosinophils % % Basophils % % Neutrophils # (1.3-7.7) k/uL Lymphocytes # (1.0-4.8) k/uL Monocytes # (0-1.0) k/uL Eosinophils # (0-0.7) k/uL Basophils # (0-0.2) k/uL Hypochromasia Anisocytosis PT 9.9 (9.0-12.0) sec INR 0.9 (<1.2) APTT 28.3 (22.0-30.0) sec Sodium (137-145) mmol/L Potassium (3.5-5.1) mmol/L Chloride (98-107) mmol/L Carbon Dioxide (22-30) mmol/L Anion Gap mmol/L BUN (9-20) mg/dL Creatinine (0.66-1.25) mg/dL Est GFR (CKD-EPI)AfAm (>60 ml/min/1.73 sqM) Est GFR (CKD-EPI)NonAf (>60 ml/min/1.73 sqM) Glucose (74-99) mg/dL Plasma Lactic Acid [place] 1.6 (0.7-2.0) mmol/L Calcium (8.4-10.2) mg/dL Total Bilirubin (0.2-1.3) mg/dL AST (17-59) U/L ALT (4-49) U/L Alkaline Phosphatase (38-126) U/L Creatine Kinase (55-170) U/L Troponin I <0.012 (0.000-0.034) ng/mL Total Protein (6.3-8.2) g/dL Albumin (3.5-5.0) g/dL Urine Color Urine Appearance (Clear) Urine pH (5.0-8.0) Ur Specific [place] (1.001-1.035) Urine Protein (Negative) Urine Glucose (UA) (Negative) Urine Ketones (Negative) Urine Blood (Negative) Urine Nitrite (Negative) Urine Bilirubin (Negative) Urine Urobilinogen (<2.0) mg/dL Ur Leukocyte Esterase (Negative) Influenza Type A RNA (Not Detectd) Influenza Type B (PCR) (Not Detectd) 05/08/19 Range/Units 19:30 WBC (3.8-10.6) k/uL RBC (4.30-5.90) m/uL Hgb (13.0-17.5) gm/dL Hct (39.0-53.0) % MCV (80.0-100.0) fL MCH (25.0-35.0) pg MCHC (31.0-37.0) g/dL RDW (11.5-15.5) % Plt Count (150-450) k/uL Neutrophils % % Lymphocytes % % Monocytes % % Eosinophils % % Basophils % % Neutrophils # (1.3-7.7) k/uL Lymphocytes # (1.0-4.8) k/uL Monocytes # (0-1.0) k/uL Eosinophils # (0-0.7) k/uL Basophils # (0-0.2) k/uL Hypochromasia Anisocytosis PT (9.0-12.0) sec INR (<1.2) APTT (22.0-30.0) sec Sodium (137-145) mmol/L Potassium (3.5-5.1) mmol/L Chloride (98-107) mmol/L Carbon Dioxide (22-30) mmol/L Anion Gap mmol/L BUN (9-20) mg/dL Creatinine (0.66-1.25) mg/dL Est GFR (CKD-EPI)AfAm (>60 ml/min/1.73 sqM) Est GFR (CKD-EPI)NonAf (>60 ml/min/1.73 sqM) Glucose (74-99) mg/dL Plasma Lactic Acid [place] (0.7-2.0) mmol/L Calcium (8.4-10.2) mg/dL Total Bilirubin (0.2-1.3) mg/dL AST (17-59) U/L ALT (4-49) U/L Alkaline Phosphatase (38-126) U/L Creatine Kinase (55-170) U/L Troponin I (0.000-0.034) ng/mL Total Protein (6.3-8.2) g/dL Albumin (3.5-5.0) g/dL Urine Color Yellow Urine Appearance Clear (Clear) Urine pH 7.0 (5.0-8.0) Ur Specific [place] 1.016 (1.001-1.035) Urine Protein Trace H (Negative) Urine Glucose (UA) Negative (Negative) Urine Ketones Negative (Negative) Urine Blood Negative (Negative) Urine Nitrite Negative (Negative) Urine Bilirubin Negative (Negative) Urine Urobilinogen <2.0 (<2.0) mg/dL Ur Leukocyte Esterase Negative (Negative) Influenza Type A RNA (Not Detectd) Influenza Type B (PCR) (Not Detectd) - Radiology Data Radiology results: report reviewed (ET scan the brain shows atrophy. No acute intercranial abnormality.), image reviewed (X-ray shows amputation. No acute process. Chest x-ray read as no acute process. I do question if there is some mild increased markings right lower lobe) Critical Care Time Critical Care Time: Yes Total Critical Care Time: 31 Disposition Clinical Impression: COPD (chronic obstructive pulmonary disease), Cellulitis, Sepsis Disposition: ADMITTED IP TO THIS HOSP Condition: Serious Is patient prescribed a controlled substance at d/c from ED?: No Decision Time: 20:53
[2019-05-08 19:33] LABS: Anisocytosis Moderate; Basophils % (A) 0 %; Eosinophils # (A) 0.4 k/uL (0-0.7); Eosinophils % (A) 3 %; HCT 35.5 % (39.0-53.0); HGB 11.3 gm/dL (13.0-17.5); Hypochromasia Slight; Lymphocytes # (A) 1.3 k/uL (1.0-4.8); Lymphocytes % (A) 10 %; MCH 27.4 pg (25.0-35.0); MCHC 31.9 g/dL (31.0-37.0); Mean Platelet Volume 8.1; Monocytes % (A) 8 %; Neutrophils # (A) 10.1 k/uL (1.3-7.7); Neutrophils % (A) 78 %; Platelet Count 370 k/uL (150-450); RBC 4.12 m/uL (4.30-5.90); RDW 20.1 % (11.5-15.5)
[2019-05-08] MEDS: SODIUM CHLORIDE 0.9% 1,000 ML IV SCH (19:35)
[2019-05-08 19:43] LABS: Appearance,Urine Clear (Clear); Bilirubin,Urine Negative (Negative); Blood,Urine Negative (Negative); Color,Urine Yellow; Glucose,Urine (UA) Negative (Negative); Ketones,Urine Negative (Negative); Leukocyte Esterase,Urine Negative (Negative); Nitrite,Urine Negative (Negative); Protein,Urine Trace (Negative); Specific Gravity,Urine 1.016 (1.001-1.035); Urobilinogen,Urine <2.0 mg/dL (<2.0)
[2019-05-08 19:47] LABS: INR 0.9 (<1.2)
[2019-05-08 19:48] LABS: Partial Thromboplastin Time 28.3 sec (22.0-30.0); Prothrombin Time 9.9 sec (9.0-12.0)
[2019-05-08 19:50] LABS: ALT 12 U/L (4-49); AST 43 U/L (17-59); African American GFR (CKD) >90 (>60 ml/min/1.73 sqM); Albumin 3.3 g/dL (3.5-5.0); Alkaline Phosphatase 116 U/L (38-126); Anion Gap 5 mmol/L; Blood Urea Nitrogen 24 mg/dL (9-20); Calcium 8.6 mg/dL (8.4-10.2); Carbon Dioxide 35 mmol/L (22-30); Chloride 93 mmol/L (98-107); Creatine Kinase 39 U/L (55-170); Glucose 111 mg/dL (74-99); Non-African American GFR(CKD) >90 (>60 ml/min/1.73 sqM); Potassium 4.2 mmol/L (3.5-5.1); Sodium 133 mmol/L (137-145); Total Bilirubin 0.9 mg/dL (0.2-1.3); Total Protein 7.6 g/dL (6.3-8.2)
--- NOTE | 2019-05-08 20:02 | CT ---
EXAMINATION TYPE: CT brain wo con DATE OF EXAM: 05/08/2019 COMPARISON: None HISTORY: Altered mental status. CT DLP: 1169.4 mGycm Automated exposure control for dose reduction was used. Multiple axial sections were obtained of the brain without contrast. There is mild atrophy. There is no mass effect nor midline shift. There is no sign of intracranial he morrhage. The calvarium is intact. IMPRESSION: Mild cerebral atrophy. No acute intracranial abnormality.
--- NOTE | 2019-05-08 20:38 | XR ---
EXAMINATION TYPE: XR tibia fibula LT DATE OF EXAM: 05/08/2019 COMPARISON: NONE HISTORY: Altered mental status TECHNIQUE: 2 views FINDINGS: There is amputation below the knee. There are skin claribel. I see no fracture nor dislocati on. There is calcification of the [place] of the knee. IMPRESSION: Below-knee amputation deformity. No evidence of osteomyelitis. No fracture. Chondrocalcin osis. Mild knee joint effusion.
--- NOTE | 2019-05-08 20:39 | XR ---
EXAMINATION TYPE: XR chest 2V DATE OF EXAM: 05/08/2019 COMPARISON: 02/20/2019 HISTORY: Chest pain TECHNIQUE: FINDINGS: There is no heart failure nor confluent pneumonic infiltrate. Costophrenic angles are clear . There are chest leads. IMPRESSION: No active cardiopulmonary disease. No adverse change.
[2019-05-08] MEDS ORDERED: cefTRIAXone IN SWFI 1,000 MG/10 ML SYRINGE IVP STA (20:53)
[2019-05-08] MEDS ORDERED: IPRATROPIUM-ALBUTEROL 3 ML NEB INHALATION PRN (20:54)
[2019-05-08] MEDS ORDERED: VANCOMYCIN IV PER PHARMACY 1 EACH MISC MISCELLANE PRN (20:54)
[2019-05-08] MEDS ORDERED: VANCOMYCIN 1,500 MG in SODIUM CHLORIDE 0.9% 250 ML IVPB ONE (21:30)
[2019-05-08 21:36] LABS: ABG Base Excess 9.4 mmol/L; ABG HCO3 33 mmol/L (21-25); ABG Oxygen Saturation 95.9 % (94-97); ABG PCO2 44 mmHg (35-45); ABG PH 7.48 (7.35-7.45); ABG PO2 72 mmHg (83-108); ABG TCO2 34 mmol/L (19-24); Allen Test Performed? Yes
[2019-05-08] MEDS ORDERED: HYDROcodone/APAP 10-325MG 1 EACH TAB PO PRN (23:27)
[2019-05-08] MEDS ORDERED: BENZOCAINE/MENTHOL LOZENG 1 EACH LOZENGE MUCOUS MEM PRN (23:27)
[2019-05-08] MEDS ORDERED: MAG HYDROX/AL HYDROX/SIMETH 30 ML CUP PO PRN (23:27)
[2019-05-09] MEDS: DIAZEPAM 5 MG TAB PO SCH ×3 (00:16→20:15)
[2019-05-09] MEDS: PREGABALIN 75 MG CAP PO SCH ×3 (00:16→20:14)
[2019-05-09] MEDS ORDERED: ACETAMINOPHEN TAB 325 MG TAB PO PRN (00:23)
[2019-05-09] MEDS: methylPREDNISolone SOD SUCCI 125 MG/2 ML VIAL IV SCH ×4 (00:32→17:14)
[2019-05-09] MEDS: SODIUM CHLORIDE 0.9% 1,000 ML IV SCH ×3 (04:24→15:04)
[2019-05-09] MEDS: NICOTINE 21MG/24HR PATCH TRANSDERM SCH (08:02)
[2019-05-09] MEDS: IPRATROPIUM-ALBUTEROL 3 ML NEB INHALATION SCH ×4 (08:38→20:23)
[2019-05-09] MEDS ORDERED: VANCOMYCIN 1,500 MG in SODIUM CHLORIDE 0.9% 250 ML IVPB SCH (12:00)
[2019-05-09] MEDS: LACTULOSE 20 GM/30 ML CUP PO SCH ×2 (13:42→20:15)
[2019-05-09] MEDS: FERROUS SULFATE 325 MG TAB PO SCH (13:42)
[2019-05-09] MEDS: DRONABINOL 2.5 MG CAP PO SCH (13:42)
[2019-05-09] MEDS: VANCOMYCIN 1,500 MG in SODIUM CHLORIDE 0.9% 250 ML IVPB SCH (15:03)
--- NOTE | 2019-05-09 16:17 | P.HPIM ---
History of Present Illness H&P Date: 05/09/19 Chief Complaint: Altered mental status/cough 64-year-old male presenting to the emergency department with complaints of reported altered mental status. Patient is a poor historian and offers limited history. There have been reported hallucinations. Patient reportedly had f ever. Patient states he feels fine and has no complaints at this time. Patient denies any cough or dyspnea. No abdominal pain. Workup in ED with an EKG showed sinus tachycardia, labwork showed a white blood count of 13.0 and an elevated lactic acid level; patient did meet criteria for sepsis and was started on IV antibiotics; chest x-ray showed right lower lobe pneumonia; patient is admitted to the hospital for further treatment of cellulitis, pneumonia and sepsis Review of Systems REVIEW OF SYSTEMS: CONSTITUTIONAL: No fever, no malaise, no fatigue. HEENT: No recent visual problems or hearing problems. Denied any sore throat. CARDIOVASCULAR: No chest pain, orthopnea, PND, no palpitations, no syncope. PULMONARY: No shortness of breath, no cough, no hemoptysis. GASTROINTESTINAL: No diarrhea, no nausea, no vomiting, no abdominal pain. NEUROLOGICAL: No headaches, no weakness, no numbness. HEMATOLOGICAL: Denies any bleeding or petechiae. GENITOURINARY: Denies any burning micturition, frequency, or urgency. MUSCULOSKELETAL/RHEUMATOLOGICAL: Denies any joint pain, swelling, or any muscle pain. ENDOCRINE: Denies any polyuria or polydipsia. The rest of the 14-point review of systems is negative. Past Medical History Past Medical History: COPD, Deep Vein Thrombosis (DVT), GERD/Reflux, Hearing Disorder / Deafness, Osteoarthritis (OA), Pneumonia, Vascular Disorder Additional Past Medical History / Comment(s): Previous history of GI bleed, previous history of a right medial thigh abscess that was drained and a foreign body was removed and the patient had positive cultures for MRSA, previous peripheral vascular disease with a left fem-pop bypass surgery, severe COPD with FEV1 of 39% of predicted maintained on a combination of Advair and Spiriva, chronic smoker, history of DVT in 2007, history of open wounds at the level of the metatarsal joints with previous amputation transmetatarsal, previous history of osteomyelitis, chronic hypoxic respiratory failure limited on oxygen, history of gout History of Any Multi-Drug Resistant Organisms: CRE, MRSA Date of last positivie culture/infection: 11/21/18-MRSA MDRO Source:: Right Leg Past Surgical History: Orthopedic Surgery Additional Past Surgical History / Comment(s): Bilateral femoral pop bypass surgery, arthroscopic left knee surgery, bilateral inguinal hernia repair, left transmetatarsal amputation of the great toe, Removal right pinky bone,Previous transmetatarsal amputation of the left foot with subsequent revision, fem-pop bypass surgery, incision and drainage of a right mid thigh abscess Past Anesthesia/Blood Transfusion Reactions: No Reported Reaction Past Psychological History: Anxiety Additional Psychological History / Comment(s): pt indepedent, retired, 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 Patient is a and had difficulties adjusting Smoking Status: Current some day smoker Past Alcohol Use History: None Reported Additional Past Alcohol Use History / Comment(s): smoker since 1969, 1 PPD Past Drug Use History: Marijuana Additional Drug Use History / Comment(s): occ use but none in 5-6 months - Past Family History Brother(s) Family Medical History: Coronary Artery Disease (CAD) Additional Family Medical History / Comment(s): heart attack/cabg Father Family Medical History: No Reported History Mother Family Medical History: Deep Vein Thrombosis (DVT) Medications and Allergies Home Medications Medication Instructions Recorded Confirmed Type Cetirizine HCl [Zyrtec] 10 mg PO DAILY 02/09/19 05/09/19 History Diazepam [Valium] 10 mg PO BID@0900,2100 02/20/19 05/09/19 History Nicotine 21Mg/24Hr Patch [Habitrol] 1 patch TRANSDERM DAILY #30 patch 04/22/19 05/09/19 Rx Pregabalin [Lyrica] 75 mg PO BID #60 cap 04/22/19 05/09/19 Rx Benzocaine/Menthol Lozeng [Cepacol 1 lozenge MUCOUS MEM Q2H PRN 05/09/19 05/09/19 History lozenge] Bisacodyl 10 mg PO DAILY PRN 05/09/19 05/09/19 History Clotrimazole/Betamethasone Dip 1 applic TOPICAL BID 05/09/19 05/09/19 History [Lotrisone Cream] Dronabinol 2.5 mg PO BID@0600,1400 05/09/19 05/09/19 History Ferrous Sulfate [Feosol] 325 mg PO DAILY@1400 05/09/19 05/09/19 History HYDROcodone/APAP 10-325MG [[place] 1 tab PO Q4H PRN 05/09/19 05/09/19 History 10-325] Lactose-Reduced Food [Ensure Plus] 1 can PO TID@0900,1300,2100 05/09/19 05/09/19 History Lactulose 10 gm PO Q12H 05/09/19 05/09/19 History Mag Hydrox/Aluminum Hyd/Simeth 30 ml PO Q6H PRN 05/09/19 05/09/19 History [Mylanta Maximum Strength Liq] Petrolatum, White [Aquaphor] 1 applic TOPICAL HS 05/09/19 05/09/19 History Sertraline HCl [Zoloft] 100 mg PO HS@209905/09/19 05/09/19 History Sertraline [Zoloft] 25 mg PO HS@2100 05/09/19 05/09/19 History Allergies Allergy/AdvReac Type Severity Reaction Status Date / Time hydromorphone [From Dilaudid] AdvReac Hallucinati Verified 05/09/19 11:28 ons Physical Exam Vitals: Vital Signs Temp Pulse Pulse Resp BP BP Pulse Ox 05/09/19 12:01 80 05/09/19 11:51 80 05/09/19 08:49 76 05/09/19 08:38 80 05/09/19 05:10 97.5 F L 77 16 111/69 97 05/09/19 00:00 101 H 05/08/19 22:42 98.0 F 101 H 17 106/55 97 05/08/19 21:30 100 F H 102 H 18 102/68 97 05/08/19 19:31 101.8 F H 110 H 20 05/08/19 19:05 94 L 05/08/19 18:58 99.0 F 112 H 18 134/76 87 L Intake and Output 05/08/19 05/09/19 05/09/19 22:59 06:59 14:59 Output Total 400 625 400 Balance -400 -625 -400 Output: Urine 400 625 400 Other: Voiding Method Urinal Urinal Diaper Diaper # Voids 2 # Bowel Movements 0 Weight 81.647 kg PHYSICAL EXAMINATION: GENERAL: The patient is alert and oriented x3, not in any acute distress. Well developed, well nourished. HEENT: Pupils are round and equally reacting to light. EOMI. No scleral icterus. No conjunctival pallor. Normocephalic, atraumatic. No pharyngeal erythema. No thyromegaly. CARDIOVASCULAR: S1 and S2 present. No murmurs, rubs, or gallops. PULMONARY: Chest is clear to auscultation, no wheezing or crackles. ABDOMEN: Soft, nontender, nondistended, normoactive bowel sounds. No palpable organomegaly. MUSCULOSKELETAL: No joint swelling or deformity. EXTREMITIES: No cyanosis, clubbing, or pedal edema. NEUROLOGICAL: Gross neurological examination did not reveal any focal deficits. SKIN: No rashes. Results CBC & Chem 7: 05/08/19 19:18 05/08/19 19:18 Labs: Abnormal Lab Results - Last 24 Hours (Table) 05/08/19 05/08/19 05/08/19 Range/Units 19:18 19:18 19:30 WBC 13.0 H (3.8-10.6) k/uL RBC 4.12 L (4.30-5.90) m/uL Hgb 11.3 L (13.0-17.5) gm/dL Hct 35.5 L (39.0-53.0) % RDW 20.1 H (11.5-15.5) % Neutrophils # 10.1 H (1.3-7.7) k/uL ABG pH (7.35-7.45) ABG pO2 (83-108) mmHg ABG HCO3 (21-25) mmol/L ABG Total CO2 (19-24) mmol/L Sodium 133 L (137-145) mmol/L Chloride 93 L (98-107) mmol/L Carbon Dioxide 35 H (22-30) mmol/L BUN 24 H (9-20) mg/dL Glucose 111 H (74-99) mg/dL Creatine Kinase 39 L (55-170) U/L Albumin 3.3 L (3.5-5.0) g/dL Urine Protein Trace H (Negative) 05/08/19 Range/Units 21:32 WBC (3.8-10.6) k/uL RBC (4.30-5.90) m/uL Hgb (13.0-17.5) gm/dL Hct (39.0-53.0) % RDW (11.5-15.5) % Neutrophils # (1.3-7.7) k/uL ABG pH 7.48 H (7.35-7.45) ABG pO2 72 L (83-108) mmHg ABG HCO3 33 H (21-25) mmol/L ABG Total CO2 34 H (19-24) mmol/L Sodium (137-145) mmol/L Chloride (98-107) mmol/L Carbon Dioxide (22-30) mmol/L BUN (9-20) mg/dL Glucose (74-99) mg/dL Creatine Kinase (55-170) U/L Albumin (3.5-5.0) g/dL Urine Protein (Negative) Microbiology - Last 24 Hours (Table) 05/08/19 19:18 Gram Stain - Preliminary Leg - Left Wound Culture - Preliminary Thrombosis Risk Factor Assmnt - Choose All That Apply Any of the Below Risk Factors Present?: Yes Each Factor Represents 1 point: Medical pt on bed rest, Obesity (BMI >25) Other Risk Factors: Yes Each Risk Factor Represents 2 Points: Age 61-74 years Each Risk Factor Represents 3 Points: Family history of DVT/PE, History of DVT/PE Thrombosis Risk Factor Assessment Total Risk Factor Score: 10 Thrombosis Risk Factor Assessment Level: High Risk Assessment and Plan Assessment: 1. Pneumonia; patient is started on IV antibiotics in form of ceftriaxone and vancomycin; sputum and blood cultures are ordered and pending 2. Cellulitis lower extremities; vancomycin IV pharmacy to dose 3. Sepsis; patient is pancultured; monitor lactic acid levels, pro-calcitonin and CRP; ID to see patient and make recommendations 4. Mild AK I; slow IV fluid hydration with normal saline; monitor renal function and electrolytes closely 5. COPD; acute exacerbation; continue with Solu-Medrol 60 mg IV every 6 hours; DuoNeb nebulizer treatments 4 times a day and when necessary 6. Depression; continue with home dose of Zoloft 7. Neuropathy; home dose of Lyrica DVT prophylaxis CODE STATUS; full code
[2019-05-09] MEDS: SERTRALINE 100 MG TAB PO SCH (20:15)
[2019-05-09] MEDS: SERTRALINE 25 MG TAB PO SCH (20:15)
[2019-05-09] MEDS ORDERED: VANCOMYCIN IV PER PHARMACY 1 EACH MISC MISCELLANE PRN (22:25)
--- NOTE | 2019-05-09 22:32 | P.CONS ---
History of Present Illness - Reason for Consult Consult date: 05/09/19 Fever Requesting physician: Narayan Queen - Chief Complaint Fever and mental status changes x 1 day - History of Present Illness Patient is a 64-year-old male who was recently admitted to this facility with extensive left diabetic foot infection in this patient who is status post left below the knee amputation patient culture were positive for Klebsiella and group C strep and anaerobic gram-negative is patient was treated with IV anybody therapy and subsequently was [facility] on oral Cipro and Flagyl for 1 week as the patient infected part was removed and he was never bacteremic, the patient now being brought back to [facility] ER yesterday with the chief complaints of mental status changes and hallucinations and apparently a fever that started at the [facility] on arrival to the ER the patient did have a fever of 101F patient did have elevated white count 13,000 patient UA was negative chest x-ray reported negative patient did have a cultures obtained from his BKA stump he was started on Rocephin and infectious disease was consulted for further recommendation regarding antibiotic at the time of evaluation the patient remains to be lethargic he opened eyes to his maintenance but did not answer any questions and to provide any useful history of MRSA sternal reported no vomiting or any diarrhea Review of Systems Positive points has been mentioned in HPI complete review could not be obtained because of his underlying mental status Past Medical History Past Medical History: COPD, Deep Vein Thrombosis (DVT), GERD/Reflux, Hearing Disorder / Deafness, Osteoarthritis (OA), Pneumonia, Vascular Disorder Additional Past Medical History / Comment(s): Previous history of GI bleed, previous history of a right medial thigh abscess that was drained and a foreign body was removed and the patient had positive cultures for MRSA, previous peripheral vascular disease with a left fem-pop bypass surgery, severe COPD with FEV1 of 39% of predicted maintained on a combination of Advair and Spiriva, chronic smoker, history of DVT in 2007, history of open wounds at the level of the metatarsal joints with previous amputation transmetatarsal, previous history of osteomyelitis, chronic hypoxic respiratory failure limited on oxygen, history of gout History of Any Multi-Drug Resistant Organisms: CRE, MRSA Year Discovered:: 11/21/18-MRSA MDRO Source:: Right Leg Past Surgical History: Orthopedic Surgery Additional Past Surgical History / Comment(s): Bilateral femoral pop bypass surgery, arthroscopic left knee surgery, bilateral inguinal hernia repair, left transmetatarsal amputation of the great toe, Removal right pinky bone,Previous transmetatarsal amputation of the left foot with subsequent revision, fem-pop bypass surgery, incision and drainage of a right mid thigh abscess Past Anesthesia/Blood Transfusion Reactions: No Reported Reaction Past Psychological History: Anxiety Additional Psychological History / Comment(s): pt indepedent, retired, 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 Patient is a and had difficulties adjusting Smoking Status: Current some day smoker Past Alcohol Use History: None Reported Additional Past Alcohol Use History / Comment(s): smoker since 1969, 1 PPD Past Drug Use History: Marijuana Additional Drug Use History / Comment(s): occ use but none in 5-6 months - Past Family History Brother(s) Family Medical History: Coronary Artery Disease (CAD) Additional Family Medical History / Comment(s): heart attack/cabg Father Family Medical History: No Reported History Mother Family Medical History: Deep Vein Thrombosis (DVT) Medications and Allergies Home Medications Medication Instructions Recorded Confirmed Type Cetirizine HCl [Zyrtec] 10 mg PO DAILY 02/09/19 05/09/19 History Diazepam [Valium] 10 mg PO BID@0900,2100 02/20/19 05/09/19 History Nicotine 21Mg/24Hr Patch [Habitrol] 1 patch TRANSDERM DAILY #30 patch 04/22/19 05/09/19 Rx Pregabalin [Lyrica] 75 mg PO BID #60 cap 04/22/19 05/09/19 Rx Benzocaine/Menthol Lozeng [Cepacol 1 lozenge MUCOUS MEM Q2H PRN 05/09/19 05/09/19 History lozenge] Bisacodyl 10 mg PO DAILY PRN 05/09/19 05/09/19 History Clotrimazole/Betamethasone Dip 1 applic TOPICAL BID 05/09/19 05/09/19 History [Lotrisone Cream] Dronabinol 2.5 mg PO BID@0600,1400 05/09/19 05/09/19 History Ferrous Sulfate [Feosol] 325 mg PO DAILY@1400 05/09/19 05/09/19 History HYDROcodone/APAP 10-325MG [[place] 1 tab PO Q4H PRN 05/09/19 05/09/19 History 10-325] Lactose-Reduced Food [Ensure Plus] 1 can PO TID@0900,1300,2100 05/09/19 05/09/19 History Lactulose 10 gm PO Q12H 05/09/19 05/09/19 History Mag Hydrox/Aluminum Hyd/Simeth 30 ml PO Q6H PRN 05/09/19 05/09/19 History [Mylanta Maximum Strength Liq] Petrolatum, White [Aquaphor] 1 applic TOPICAL HS 05/09/19 05/09/19 History Sertraline HCl [Zoloft] 100 mg PO HS@209905/09/19 05/09/19 History Sertraline [Zoloft] 25 mg PO HS@209905/09/19 05/09/19 History Allergies Allergy/AdvReac Type Severity Reaction Status Date / Time hydromorphone [From Dilaudid] AdvReac Hallucinati Verified 05/09/19 11:28 ons Physical Exam Vitals: Vital Signs Temp Pulse Pulse Resp BP BP Pulse Ox 05/09/19 08:49 76 05/09/19 08:38 80 05/09/19 05:10 97.5 F L 77 16 111/69 97 05/09/19 00:00 101 H 05/08/19 22:42 98.0 F 101 H 17 106/55 97 05/08/19 21:30 100 F H 102 H 18 102/68 97 05/08/19 19:31 101.8 F H 110 H 20 05/08/19 19:05 94 L 05/08/19 18:58 99.0 F 112 H 18 134/76 87 L Intake and Output 05/08/19 05/09/19 05/09/19 22:59 06:59 14:59 Output Total 400 625 Balance -400 -625 Output: Urine 400 625 Other: Voiding Method Urinal Urinal Diaper Diaper # Voids 2 # Bowel Movements 0 Weight 81.647 kg GENERAL DESCRIPTION: Middle-aged male lying in bed, no distress. No tachypnea or accessory muscle of respiration use. HEENT: Shows Pallor , no scleral icterus. Oral mucous membrane is dry. No ph aryngeal erythema or thrush NECK: Trachea central, no thyromegaly. LUNGS: Unlabored breathing. Clear to auscultation anteriorly. No wheeze or crackle. HEART: S1, S2, regular rate and rhythm. No loud murmur ABDOMEN: Soft, no tenderness , guarding or rigidity, no organomegaly EXTREMITIES: Left BKA stump to have some skin necrosis some superficial wound no significant swelling redness or foul-smelling drainage SKIN: No rash, no masses palpable. NEUROLOGICAL: The patient is sleepy lethargic orientation could not be determined Results CBC & Chem 7: 05/08/19 19:18 05/08/19 19:18 Labs: Abnormal Lab Results - Last 24 Hours (Table) 05/08/19 05/08/19 05/08/19 Range/Units 19:18 19:18 19:30 WBC 13.0 H (3.8-10.6) k/uL RBC 4.12 L (4.30-5.90) m/uL Hgb 11.3 L (13.0-17.5) gm/dL Hct 35.5 L (39.0-53.0) % RDW 20.1 H (11.5-15.5) % Neutrophils # 10.1 H (1.3-7.7) k/uL ABG pH (7.35-7.45) ABG pO2 (83-108) mmHg ABG HCO3 (21-25) mmol/L ABG Total CO2 (19-24) mmol/L Sodium 133 L (137-145) mmol/L Chloride 93 L (98-107) mmol/L Carbon Dioxide 35 H (22-30) mmol/L BUN 24 H (9-20) mg/dL Glucose 111 H (74-99) mg/dL Creatine Kinase 39 L (55-170) U/L Albumin 3.3 L (3.5-5.0) g/dL Urine Protein Trace H (Negative) 05/08/19 Range/Units 21:32 WBC (3.8-10.6) k/uL RBC (4.30-5.90) m/uL Hgb (13.0-17.5) gm/dL Hct (39.0-53.0) % RDW (11.5-15.5) % Neutrophils # (1.3-7.7) k/uL ABG pH 7.48 H (7.35-7.45) ABG pO2 72 L (83-108) mmHg ABG HCO3 33 H (21-25) mmol/L ABG Total CO2 34 H (19-24) mmol/L Sodium (137-145) mmol/L Chloride (98-107) mmol/L Carbon Dioxide (22-30) mmol/L BUN (9-20) mg/dL Glucose (74-99) mg/dL Creatine Kinase (55-170) U/L Albumin (3.5-5.0) g/dL Urine Protein (Negative) Microbiology - Last 24 Hours (Table) 05/08/19 19:18 Gram Stain - Preliminary Leg - Left Wound Culture - Preliminary Assessment and Plan Assessment: 1-patient presented to the hospital with fever and mental status changes this patient who recently did have a left below the knee amputation for a diabetic foot abscess culture at that time were positive for group C strep Klebsiella and anaerobic gram-negative is patient was never bacteremic, this admission had the patient did have a fever and elevated white count however workup so far including a chest x-ray and UA has been negative patient abdominal soft with clinical examination, he did have a small wound and some skin necrosis the left BKA stump but no extensive cellulitis or clinical abscess was noticed (1) Cellulitis Current Visit: Yes Status: Acute Code(s): L03.90 - CELLULITIS, UNSPECIFIED SNOMED Code(s): 990723769 (2) Sepsis Current Visit: Yes Status: Acute Code(s): A41.9 - SEPSIS, UNSPECIFIED ORGANISM SNOMED Code(s): 75602437 Plan: 1-Vancomycin pharmacy to dose target trough of 15 while watching his kidney function and Vanco trough closely 2-Rocephin 2 g daily 3-dry Aquacel dressing to the open wound left BK stump to be changed every 48 hour We will follow on clinical condition and cultures to further adjust medication if needed Thank you for this consultation will follow this patient with you Time with Patient: Greater than 30
[2019-05-10] MEDS: methylPREDNISolone SOD SUCCI 125 MG/2 ML VIAL IV SCH ×4 (00:15→17:26)
[2019-05-10] MEDS: SODIUM CHLORIDE 0.9% 1,000 ML IV SCH ×3 (03:12→17:26)
[2019-05-10] MEDS: DRONABINOL 2.5 MG CAP PO SCH ×2 (06:01→13:14)
[2019-05-10] MEDS: IPRATROPIUM-ALBUTEROL 3 ML NEB INHALATION SCH ×4 (07:34→20:02)
--- NOTE | 2019-05-10 08:05 | P.PN ---
Subjective Progress Note Date: 05/10/19 Principal diagnosis: The patient is here for cellulitis. This is a history and physical/progress note on a 64-year-old male with recent left below-knee amputation. The patient had gangrene of the foot and secondary to diabetes and PAD. The patient now is readmitted after being in rehab for about one week with significant mental status change and infection. Element of sepsis. Appreciate infectious disease input. The patient seems slightly still disoriented today. Objective - Vital Signs Vital signs: Vital Signs Temp 97.5 F L 05/10/19 06:23 Pulse 84 05/10/19 06:23 Resp 20 05/10/19 06:23 BP 93/54 05/10/19 06:23 Pulse Ox 93 L 05/10/19 06:23 Intake & Output 05/09/19 05/10/19 05/10/19 18:59 06:59 18:59 Intake Total 2400 Output Total 400 Balance -400 2400 Intake: Oral 2400 Output: Urine 400 Other: Voiding Method Urinal Urinal Diaper Diaper # Voids 3 - Constitutional General appearance: Present: average body habitus. Absent: thin - EENT Eyes: Absent: abnormal pupil - Neck Neck: Present: lymphadenopathy - Respiratory Respiratory: bilateral: CTA - Cardiovascular Rhythm: regular Heart sounds: normal: S1, S2 Abnormal Heart Sounds: Absent: S3 Gallop - Gastrointestinal General gastrointestinal: Present: soft. Absent: tenderness - Integumentary Integumentary: Present: cellulitis - Psychiatric Psychiatric: Absent: appropriate affect - Labs CBC & Chem 7: 05/08/19 19:18 05/08/19 19:18 Labs: Microbiology - Last 24 Hours (Table) 05/08/19 19:18 Blood Culture - Preliminary Blood No Growth after 24 hours Assessment and Plan (1) Cellulitis Current Visit: Yes Status: Acute Code(s): L03.90 - CELLULITIS, UNSPECIFIED SNOMED Code(s): 690085057 (2) Sepsis Current Visit: Yes Status: Acute Code(s): A41.9 - SEPSIS, UNSPECIFIED ORGANISM SNOMED Code(s): 92412359 Plan: Continue current regimen of antibiotic treatment. Prognosis is guarded secondary to his multiple comorbidities. Check CBC and CMP in a.m.
[2019-05-10] MEDS: LACTULOSE 20 GM/30 ML CUP PO SCH ×3 (08:38→20:31)
[2019-05-10] MEDS: PREGABALIN 75 MG CAP PO SCH ×2 (08:38→20:31)
[2019-05-10] MEDS: FERROUS SULFATE 325 MG TAB PO SCH (08:38)
[2019-05-10] MEDS: DIAZEPAM 5 MG TAB PO SCH ×2 (08:38→20:31)
[2019-05-10] MEDS: NICOTINE 21MG/24HR PATCH TRANSDERM SCH ×2 (08:38→08:43)
[2019-05-10] MEDS: VANCOMYCIN 1,500 MG in SODIUM CHLORIDE 0.9% 250 ML IVPB SCH (08:39)
[2019-05-10 08:51] LABS: African American GFR (CKD) >90 (>60 ml/min/1.73 sqM); Anion Gap 7 mmol/L; Blood Urea Nitrogen 24 mg/dL (9-20); Calcium 8.3 mg/dL (8.4-10.2); Carbon Dioxide 24 mmol/L (22-30); Chloride 108 mmol/L (98-107); Glucose 131 mg/dL (74-99); Non-African American GFR(CKD) >90 (>60 ml/min/1.73 sqM); Potassium 3.6 mmol/L (3.5-5.1); Sodium 139 mmol/L (137-145)
[2019-05-10 09:10] LABS: C Reactive Protein 132.1 mg/L (<10.0)
[2019-05-10 09:27] LABS: Anisocytosis Moderate; Basophils % (A) 0 %; Eosinophils % (A) 0 %; HCT 32.1 % (39.0-53.0); Hypochromasia Slight; Lymphocytes # (A) 0.8 k/uL (1.0-4.8); Lymphocytes % (A) 7 %; MCH 26.7 pg (25.0-35.0); MCHC 30.1 g/dL (31.0-37.0); MCV 88.8 fL (80.0-100.0); Mean Platelet Volume 10.5; Monocytes # (A) 0.4 k/uL (0-1.0); Monocytes % (A) 4 %; Neutrophils # (A) 10.8 k/uL (1.3-7.7); Neutrophils % (A) 89 %; Platelet Count 238 k/uL (150-450); RBC 3.61 m/uL (4.30-5.90); RDW 20.1 % (11.5-15.5); WBC 12.1 k/uL (3.8-10.6)
[2019-05-10 09:31] LABS: HGB 9.7 gm/dL (13.0-17.5)
[2019-05-10] MEDS: SERTRALINE 100 MG TAB PO SCH (20:31)
[2019-05-10] MEDS: SERTRALINE 25 MG TAB PO SCH (20:31)
[2019-05-11] MEDS: VANCOMYCIN 1,500 MG in SODIUM CHLORIDE 0.9% 250 ML IVPB SCH ×2 (00:20→15:51)
[2019-05-11] MEDS: methylPREDNISolone SOD SUCCI 125 MG/2 ML VIAL IV SCH ×4 (00:20→16:53)
[2019-05-11] MEDS: DRONABINOL 2.5 MG CAP PO SCH ×2 (05:23→15:25)
--- NOTE | 2019-05-11 05:51 | PN ---
PROGRESS NOTE DATE OF SERVICE: 05/10/2019 REASON FOR FOLLOWUP: Left BKA stump wound and cellulitis. INTERVAL HISTORY: The patient is currently afebrile, has been breathing comfortably. No complaints. No nausea, vomiting, abdominal pain. left BKA stump. No diarrhea. PHYSICAL EXAMINATION: Blood pressure 122/67 with a pulse of 78, temperature 98.2. He is 95% on room air. General description is a middle-aged male lying in bed in no distress. RESPIRATORY SYSTEM: Unlabored breathing, clear to auscultation anteriorly. HEART: S1, S2. Regular rate and rhythm. ABDOMEN: Soft, no tenderness. Left BKA stump is currently dressed up. No obvious drainage on the dressing. LABS: Creatinine 0.61, white count 12.1. Wound culture has been negative so far. Blood culture negative. DIAGNOSTIC IMPRESSION AND PLAN: Patient with left [id number]-amputation admitted to the hospital with fever with concern for left razlq-ibb-lrhu stump wound and cellulitis. No significant deep collection has been noticed. Cultures have been negative so far. Fever has resolved. Keep the patient on Rocephin and vancomycin while waiting for .Continue supportive care. MMODL / IJN: [id number] /
[2019-05-11] MEDS: LACTULOSE 20 GM/30 ML CUP PO SCH ×2 (08:46→21:51)
[2019-05-11] MEDS: PREGABALIN 75 MG CAP PO SCH ×2 (08:46→21:51)
[2019-05-11] MEDS: DIAZEPAM 5 MG TAB PO SCH ×2 (08:46→21:51)
[2019-05-11] MEDS: NICOTINE 21MG/24HR PATCH TRANSDERM SCH (08:47)
[2019-05-11] MEDS: IPRATROPIUM-ALBUTEROL 3 ML NEB INHALATION SCH ×4 (09:11→19:20)
[2019-05-11 09:16] LABS: Anisocytosis Slight; HCT 31.7 % (39.0-53.0); HGB 9.7 gm/dL (13.0-17.5); Hypochromasia Moderate; MCH 27.4 pg (25.0-35.0); MCHC 30.7 g/dL (31.0-37.0); MCV 89.2 fL (80.0-100.0); Mean Platelet Volume 8.1; Platelet Count 298 k/uL (150-450); RBC 3.55 m/uL (4.30-5.90); RDW 19.9 % (11.5-15.5); WBC 8.8 k/uL (3.8-10.6)
[2019-05-11 09:35] LABS: ALT 64 U/L (4-49); AST 102 U/L (17-59); African American GFR (CKD) >90 (>60 ml/min/1.73 sqM); Albumin 2.7 g/dL (3.5-5.0); Alkaline Phosphatase 101 U/L (38-126); Anion Gap 7 mmol/L; Blood Urea Nitrogen 23 mg/dL (9-20); Calcium 8.2 mg/dL (8.4-10.2); Carbon Dioxide 28 mmol/L (22-30); Chloride 105 mmol/L (98-107); Glucose 140 mg/dL (74-99); Non-African American GFR(CKD) >90 (>60 ml/min/1.73 sqM); Potassium 3.4 mmol/L (3.5-5.1); Sodium 140 mmol/L (137-145); Total Bilirubin 0.2 mg/dL (0.2-1.3); Total Protein 6.4 g/dL (6.3-8.2)
[2019-05-11] MEDS ORDERED: Potassium Replacement Protocol 1 EACH MISC MISCELLANE PRN (09:59)
[2019-05-11] MEDS: POTASSIUM CHLORIDE ER 20 MEQ TAB.ER PO SCH ×2 (10:41→11:22)
[2019-05-11] MEDS: SODIUM CHLORIDE 0.9% 1,000 ML IV SCH (11:23)
[2019-05-11 14:22] VITALS: BMI 29.9
[2019-05-11] MEDS ORDERED: VANCOMYCIN TROUGH DUE 1 EACH MISC MISCELLANE ONE (15:00)
[2019-05-11] MEDS: FERROUS SULFATE 325 MG TAB PO SCH (15:26)
[2019-05-11] MEDS: SERTRALINE 100 MG TAB PO SCH (21:51)
[2019-05-11] MEDS: SERTRALINE 25 MG TAB PO SCH (21:51)
--- NOTE | 2019-05-11 22:19 | P.PN ---
Subjective Principal diagnosis: The patient is here for cellulitis. This is a history and physical/progress note on a 64-year-old male with recent left below-knee amputation. The patient had gangrene of the foot and secondary to diabetes and PAD. The patient now is readmitted after being in rehab for about one week with significant mental status change and infection. Element of sepsis. Appreciate infectious disease input. Objective - Vital Signs Vital signs: Vital Signs Temp 97.9 F 05/11/19 15:00 Pulse 78 05/11/19 15:00 Resp 16 05/11/19 15:00 BP 115/62 05/11/19 15:00 Pulse Ox 90 L 05/11/19 15:00 Intake & Output 05/11/19 05/11/19 05/12/19 06:59 18:59 06:59 Intake Total 490 Output Total 2049 Balance -2049 490 Weight 81.647 kg Intake: Oral 490 Output: Urine 2049 Other: Voiding Method Urinal Diaper # Voids 4 # Bowel Movements 1 - Constitutional General appearance: Present: no acute distress, thin - EENT Eyes: Absent: abnormal pupil - Respiratory Respiratory: bilateral: CTA - Cardiovascular Rhythm: regular Heart sounds: normal: S1, S2 - Gastrointestinal General gastrointestinal: Present: soft. Absent: tenderness - Integumentary Integumentary: Present: cellulitis - Musculoskeletal Musculoskeletal: Present: generalized weakness - Labs CBC & Chem 7: 05/11/19 08:28 05/11/19 08:28 Labs: Abnormal Lab Results - Last 24 Hours (Table) 05/11/19 05/11/19 Range/Units 08:28 08:28 RBC 3.55 L (4.30-5.90) m/uL Hgb 9.7 L (13.0-17.5) gm/dL Hct 31.7 L (39.0-53.0) % MCHC 30.7 L (31.0-37.0) g/dL RDW 19.9 H (11.5-15.5) % Potassium 3.4 L (3.5-5.1) mmol/L BUN 23 H (9-20) mg/dL Glucose 140 H (74-99) mg/dL Calcium 8.2 L (8.4-10.2) mg/dL AST 102 H (17-59) U/L ALT 64 H (4-49) U/L Albumin 2.7 L (3.5-5.0) g/dL Microbiology - Last 24 Hours (Table) 05/08/19 19:18 Blood Culture - Preliminary Blood No Growth after 72 hours 05/08/19 19:18 Gram Stain - Final Leg - Left Wound Culture - Final Assessment and Plan (1) Cellulitis Current Visit: Yes Status: Acute Code(s): L03.90 - CELLULITIS, UNSPECIFIED SNOMED Code(s): 039747305 (2) Sepsis Current Visit: Yes Status: Acute Code(s): A41.9 - SEPSIS, UNSPECIFIED ORGANISM SNOMED Code(s): 67782856 Plan: Continue current regimen of antibiotic treatment. Prognosis is guarded secondary to his multiple comorbidities. Check CBC and CMP in a.m. Otherwise, discharge planning element.
--- NOTE | 2019-05-11 23:26 | PN ---
PROGRESS NOTE DATE OF SERVICE: 05/11/2019 REASON FOR FOLLOWUP: Right BKA wound and a question of cellulitis, fever. INTERVAL HISTORY: The patient is currently afebrile. The patient has been breathing comfortably. Denies having any chest pain or cough. No nausea, vomiting, abdominal pain or diarrhea. PHYSICAL EXAMINATION: Blood pressure 115/62 with a pulse of 78, temperature 97.9. He is 99% on room air. General description is a middle-aged male lying in bed in no distress. RESPIRATORY SYSTEM: Unlabored breathing with decreased breath sounds at the base. No wheeze. HEART: S1, S2. Regular rate and rhythm. ABDOMEN: Soft. No tenderness. Left BKA stump did have skin necrosis, minimal drainage. LABS: Hemoglobin 9.7, white count 8.8. Wound culture has been negative so far. BUN of 23, creatinine 0.66. DIAGNOSTIC IMPRESSION AND PLAN: Patient admitted to hospital with a fever with concern about right BKA stump wound cellulitis. The patient did have some skin necrosis, but no definite cellulitis. No other clinical focus of infection. He did have a congested cough. Chest x-ray will be repeated. Keep the patient on the ceftriaxone and vancomycin, to which the patient's fever has responded, and monitor clinical course closely. Await surgical evaluation and continue with supportive care. MMODL / IJN: [id number] /
[2019-05-12] MEDS: methylPREDNISolone SOD SUCCI 125 MG/2 ML VIAL IV SCH ×4 (00:16→17:32)
[2019-05-12] MEDS: DRONABINOL 2.5 MG CAP PO SCH ×2 (06:07→13:38)
[2019-05-12] MEDS: LACTULOSE 20 GM/30 ML CUP PO SCH ×2 (07:51→21:08)
[2019-05-12] MEDS: NICOTINE 21MG/24HR PATCH TRANSDERM SCH (07:51)
[2019-05-12] MEDS: IPRATROPIUM-ALBUTEROL 3 ML NEB INHALATION SCH ×4 (07:51→19:33)
[2019-05-12] MEDS: PREGABALIN 75 MG CAP PO SCH ×2 (07:54→21:09)
[2019-05-12] MEDS: DIAZEPAM 5 MG TAB PO SCH ×2 (07:54→21:09)
[2019-05-12] MEDS: VANCOMYCIN 1,500 MG in SODIUM CHLORIDE 0.9% 250 ML IVPB SCH (07:54)
[2019-05-12] MEDS: SODIUM CHLORIDE 0.9% 1,000 ML IV SCH (10:16)
--- NOTE | 2019-05-12 11:41 | CDI ---
Documentation Clarification Form Date: 05/12/2019 11:07:49 AM From: Micki Segura RN, CCDS Admit Date: 05/10/2019 08:10:00 AM Patient Name: Horacio Garza Visit Number: [id number] Discharge Date: ATTENTION: The Clinical Documentation Specialists (CDI) and [facility] Coding Staff appreciate your assistance in clarifying documentation. Please respond to the clarification below the line at the bottom and electronically sign. The CDI & [facility] Coding staff will review the response and follow-up if needed. Please note: Queries are made part of the Legal Health Record. If you have any questions, please contact the author of this message via ITS. Dr. Malik Bui Altered Mental Status was documented in the H&P on 05/09 with assessment of pneumonia, cellulitis lower extremities and sepsis documented, also in your ongoing progress notes. Please provide further clarification of the altered mental status. History/Risk Factors: Peripheral vascular disease, Left Below knee amputation, Clinical Indicators: 64-year-old male presenting to the ED with complaints of reported altered mental status. His workup in ED with an EKG showing sinus tachycardia at 110, lab work showed a white blood cunt of 13.0. lactic acid 1.6 05/10 lactic acid 1.7 05/08 at 19:31 Vital signs: temp 101.8 (AX), pulse rate 110; @ 2:30 102/68 102 18 100 (AX) 97 % CPAP Chest X-ray: No acute cardiopulmonary disease CT Brain: Mild cerebral atrophy. No ac intracranial abnormality Treatment: Neurological assessment per protocol Rocephin 2 gm IV Q24HRS Vancomycin 1,500 IV Q16HRS In your professional opinion, please clarify the etiology of the Altered Mental Status, if known. Metabolic Encephalopathy (specify Underlying Medical Illness)-this is the correct choice for this wilfredo Other condition (please specify) Unable to determine (Last Revision: June 2017) MTDD
--- NOTE | 2019-05-12 12:37 | P.GSCN ---
History of Present Illness Consult date: 05/12/19 History of present illness: The patient is a 62-year-old male well-known fever previous admissions and surgical interventions. He underwent a left below-knee amputation previously and has been at [facility]. He was sent over from their due to abnormalities of his laboratories. The patient himself feels as though he is fine and is confused as to why he is actually here in Hospital and he denies any fevers, chills, nausea or vomiting otherwise. He denies any issues with his leg amputation site that he is aware of. Past Medical History Past Medical History: COPD, Deep Vein Thrombosis (DVT), GERD/Reflux, Hearing Disorder / Deafness, Osteoarthritis (OA), Pneumonia, Vascular Disorder Additional Past Medical History / Comment(s): Previous history of GI bleed, previous history of a right medial thigh abscess that was drained and a foreign body was removed and the patient had positive cultures for MRSA, previous peripheral vascular disease with a left fem-pop bypass surgery, severe COPD with FEV1 of 39% of predicted maintained on a combination of Advair and Spiriva, chronic smoker, history of DVT in 2007, history of open wounds at the level of the metatarsal joints with previous amputation transmetatarsal, previous history of osteomyelitis, chronic hypoxic respiratory failure limited on oxygen, history of gout History of Any Multi-Drug Resistant Organisms: CRE, MRSA Year Discovered:: 11/21/18-MRSA MDRO Source:: Right Leg Past Surgical History: Orthopedic Surgery Additional Past Surgical History / Comment(s): Bilateral femoral pop bypass surgery, arthroscopic left knee surgery, bilateral inguinal hernia repair, left transmetatarsal amputation of the great toe, Removal right pinky bone,Previous transmetatarsal amputation of the left foot with subsequent revision, fem-pop bypass surgery, incision and drainage of a right mid thigh abscess Past Anesthesia/Blood Transfusion Reactions: No Reported Reaction Past Psychological History: Anxiety Additional Psychological History / Comment(s): pt indepedent, retired, 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 Patient is a and had difficulties adjusting Smoking Status: Current some day smoker Past Alcohol Use History: None Reported Additional Past Alcohol Use History / Comment(s): smoker since 1970, 1 PPD Past Drug Use History: Marijuana Additional Drug Use History / Comment(s): occ use but none in 5-6 months - Past Family History Brother(s) Family Medical History: Coronary Artery Disease (CAD) Additional Family Medical History / Comment(s): heart attack/cabg Father Family Medical History: No Reported History Mother Family Medical History: Deep Vein Thrombosis (DVT) Medications and Allergies Home Medications Medication Instructions Recorded Confirmed Type RX: Cetirizine HCl [Zyrtec] 10 mg PO DAILY 02/09/19 05/09/19 History RX: Diazepam [Valium] 10 mg PO BID@0900,2100 02/20/19 05/09/19 History RX: Nicotine 21Mg/24Hr Patch 1 patch TRANSDERM DAILY #30 patch 04/22/19 05/09/19 Rx [Habitrol] RX: Pregabalin [Lyrica] 75 mg PO BID #60 cap 04/22/19 05/09/19 Rx Benzocaine/Menthol Lozeng [Cepacol 1 lozenge MUCOUS MEM Q2H PRN 05/09/19 05/09/19 History lozenge] Clotrimazole/Betamethasone Dip 1 applic TOPICAL BID 05/09/19 05/09/19 History [Lotrisone Cream] Ferrous Sulfate [Feosol] 325 mg PO DAILY@1400 05/09/19 05/09/19 History HYDROcodone/APAP 10-325MG [[place]ure 1 tab PO Q4H PRN 05/09/19 05/09/19 History 10-325] Lactose-Reduced Food [Ensure Plus] 1 can PO TID@0900,1300,209905/09/19 05/09/19 History Mag Hydrox/Aluminum Hyd/Simeth 30 ml PO Q6H PRN 05/09/19 05/09/19 History [Mylanta Maximum Strength Liq] Petrolatum, White [Aquaphor] 1 applic TOPICAL HS 05/09/19 05/09/19 History RX: Bisacodyl 10 mg PO DAILY PRN 05/09/19 05/09/19 History RX: Dronabinol 2.5 mg PO BID@0600,1400 05/09/19 05/09/19 History RX: Lactulose 10 gm PO Q12H 05/09/19 05/09/19 History Sertraline HCl [Zoloft] 100 mg PO HS@209905/09/19 05/09/19 History Sertraline [Zoloft] 25 mg PO HS@2100 05/09/19 05/09/19 History Allergies Allergy/AdvReac Type Severity Reaction Status Date / Time hydromorphone [From Dilaudid] AdvReac Hallucinati Verified 05/09/19 11:28 ons Surgical - Exam Vital Signs Temp Pulse Resp BP Pulse Ox 99.0 F 112 H 18 134/76 87 L 05/08/19 18:58 05/08/19 18:58 05/08/19 18:58 05/08/19 18:58 05/08/19 18:58 Gen. is a pleasant cooperative male in no acute distress. HEENT is normal cephalic, atraumatic, excellent motion intact. Heart is regular in rate and rhythm. Lungs are clear bilaterally. Abdomen is soft, nontender nondistended. Right lower extremity is warm and dry. Left lower extremity below-knee amputation site is warm and dry. Minimal edema. Sutures and claribel are in place although some areas of the wound is dehisced. [place] and sutures are to be removed Results - Labs 05/11/19 08:28 05/11/19 08:28 Microbiology - Last 24 Hours (Table) 05/08/19 19:18 Blood Culture - Preliminary Blood No Growth after 72 hours Assessment and Plan Assessment: Status post left below-knee amputation Elevated white count, likely partially due to hemoconcentration Plan: No significant erythema or edema to suggest ongoing significant infection at this point we will remove the sutures and claribel. Likely portions of the wound will be has further and he will need a wound VAC. He is to continue his protein supplementation and wound care. Hopefully on DC planning he may return to [facility] for attempted an assisted living as going home would be detrimental to his overall well-being at this point
[2019-05-12] MEDS: HYDROcodone/APAP 10-325MG 1 EACH TAB PO PRN (13:38)
[2019-05-12] MEDS: FERROUS SULFATE 325 MG TAB PO SCH (13:39)
[2019-05-12] MEDS: SERTRALINE 25 MG TAB PO SCH (21:08)
[2019-05-12] MEDS: SERTRALINE 100 MG TAB PO SCH (21:08)
--- NOTE | 2019-05-12 22:06 | PN ---
PROGRESS NOTE DATE OF SERVICE: 05/12/2019 REASON FOR FOLLOWUP: Fever. INTERVAL HISTORY: The patient is currently afebrile, has been breathing comfortably. Patient denies having any chest pain. Occasional cough. No vomiting and no diarrhea. No worsening pain to the left BKA stump. PHYSICAL EXAMINATION: Blood pressure 135/49 with a pulse of 73, temperature 97.8. He is 97% on room air. General description is a middle-aged male lying in bed in no distress. RESPIRATORY SYSTEM: Unlabored breathing with decreased breath sounds at the base. No wheeze. HEART: S1, S2. Regular rate and rhythm. ABDOMEN: Soft. No tenderness. Left leg is currently dressed up. No obvious drainage on the dressing. LABS: No new labs have been obtained today. DIAGNOSTIC IMPRESSION AND PLAN: Patient admitted to hospital with a fever, some mental status changes, and did have elevated white count in this patient who did have recent left [id number] amputation for a left diabetic foot. The patient's left BKA stump has some skin necrosis but no definite cellulitis. The patient also has no other definite clinical focus of infection. Chest x-ray will be repeated. Keep the patient on vancomycin and Rocephin. Monitor his clinical course closely. MMODL / IJN: [id number] /
[2019-05-12 22:37] VITALS: RESP 20
[2019-05-13] MEDS: methylPREDNISolone SOD SUCCI 125 MG/2 ML VIAL IV SCH ×3 (00:20→11:20)
[2019-05-13] MEDS: VANCOMYCIN 1,500 MG in SODIUM CHLORIDE 0.9% 250 ML IVPB SCH (00:20)
[2019-05-13] MEDS: DRONABINOL 2.5 MG CAP PO SCH ×2 (05:46→14:46)
[2019-05-13] MEDS: SODIUM CHLORIDE 0.9% 1,000 ML IV SCH (05:46)
[2019-05-13] MEDS: IPRATROPIUM-ALBUTEROL 3 ML NEB INHALATION SCH ×3 (07:32→16:10)
[2019-05-13] MEDS: HYDROcodone/APAP 10-325MG 1 EACH TAB PO PRN (07:43)
--- NOTE | 2019-05-13 08:11 | XR ---
EXAMINATION TYPE: XR chest 2V DATE OF EXAM: 05/13/2019 COMPARISON: Prior chest x-ray 05/08/2019 HISTORY: Fever and cough TECHNIQUE: Frontal and lateral views of the chest are obtained on 3 images. FINDINGS: Patient is rotated. There is bronchial wall thickening. There is no focal air space opacity , pleural effusion, or pneumothorax seen. The cardiac silhouette size is within normal limits. The osseous structures are intact. IMPRESSION: Correlate for bronchitis, follow-up as indicated
[2019-05-13] MEDS: NICOTINE 21MG/24HR PATCH TRANSDERM SCH (08:37)
[2019-05-13] MEDS: LACTULOSE 20 GM/30 ML CUP PO SCH (08:37)
[2019-05-13] MEDS: PREGABALIN 75 MG CAP PO SCH (08:41)
[2019-05-13] MEDS: DIAZEPAM 5 MG TAB PO SCH (08:41)
--- NOTE | 2019-05-13 08:54 | P.DS ---
Providers Date of admission: 05/10/19 08:10 Attending physician: Malik Bui Consults: 05/08/19 20:55 Consult Physician Urgent Consulting Provider: Sean Real Consult Reason/Comments: sepsis eval Do you want consulting provider notified?: Yes 05/11/19 13:58 Consult Physician Routine Consulting Provider: Neha Farah Consult Reason/Comments: Recent BKA, infection/poor circulation Do you want consulting provider notified?: Yes Primary care physician: Malik Bui - Discharge Diagnosis(es) (1) Cellulitis Current Visit: Yes Status: Acute (2) Sepsis Current Visit: Yes Status: Acute Hospital Course: This is a discharge summary a 64-year-old white male essentially admitted for cellulitis of left Lotrimin after having a [id number] habitation. The patient was stabilized. We will DC home on appropriate antibiotic treatment. However, the majority of the feeling is that he has difficulty taking care of the wound at home and came in dehydrated. We will discharged to ECF when bed available and antibiotic treatment has been clarified by ID. Patient Condition at Discharge: Serious Plan - Discharge Summary New Discharge Prescriptions: Continue Cetirizine HCl [Zyrtec] 10 mg PO DAILY Nicotine 21Mg/24Hr Patch [Habitrol] 1 patch TRANSDERM DAILY #30 patch Dronabinol 2.5 mg PO BID@0600,1400 Lactulose 10 gm PO Q12H Sertraline HCl [Zoloft] 100 mg PO HS@2100 Sertraline [Zoloft] 25 mg PO HS@2100 Clotrimazole/Betamethasone Dip [Lotrisone Cream] 1 applic TOPICAL BID Benzocaine/Menthol Lozeng [Cepacol lozenge] 1 lozenge MUCOUS MEM Q2H PRN PRN Reason: Sore Throat Bisacodyl 10 mg PO DAILY PRN PRN Reason: Constipation Ferrous Sulfate [Iron (65 MG Elemental)] 325 mg PO DAILY@1400 Lactose-Reduced Food [Ensure Plus] 1 can PO TID@0900,1300,2100 Mag Hydrox/Aluminum Hyd/Simeth [Mylanta Maximum Strength Liq] 30 ml PO Q6H PRN PRN Reason: Indigestion Petrolatum, White [Aquaphor] 1 applic TOPICAL HS Pregabalin [Lyrica] 75 mg PO BID #60 cap HYDROcodone/APAP 10-325MG [[place] 10-325] 1 tab PO Q4H PRN #120 tab PRN Reason: Pain Diazepam [Valium] 10 mg PO BID@899,2099 #60 tab Discharge Medication List Cetirizine HCl [Zyrtec] 10 mg PO DAILY 02/09/19 [History] Nicotine 21Mg/24Hr Patch [Habitrol] 1 patch TRANSDERM DAILY #30 patch 04/22/19 [Rx] Benzocaine/Menthol Lozeng [Cepacol lozenge] 1 lozenge MUCOUS MEM Q2H PRN 05/09/19 [History] Bisacodyl 10 mg PO DAILY PRN 05/09/19 [History] Clotrimazole/Betamethasone Dip [Lotrisone Cream] 1 applic TOPICAL BID 05/09/19 [History] Dronabinol 2.5 mg PO BID@0600,1400 05/09/19 [History] Ferrous Sulfate [Iron (65 MG Elemental)] 325 mg PO DAILY@1400 05/09/19 [History] Lactose-Reduced Food [Ensure Plus] 1 can PO TID@0900,1300,209905/09/19 [History ] Lactulose 10 gm PO Q12H 05/09/19 [History] Mag Hydrox/Aluminum Hyd/Simeth [Mylanta Maximum Strength Liq] 30 ml PO Q6H PRN 05/09/19 [History] Petrolatum, White [Aquaphor] 1 applic TOPICAL HS 05/09/19 [History] Sertraline HCl [Zoloft] 100 mg PO HS@209905/09/19 [History] Sertraline [Zoloft] 25 mg PO HS@209905/09/19 [History] Diazepam [Valium] 10 mg PO BID@899,2099 #60 tab 05/13/19 [Rx] HYDROcodone/APAP 10-325MG [[place] 10-325] 1 tab PO Q4H PRN #120 tab 05/13/19 [Rx] Pregabalin [Lyrica] 75 mg PO BID #60 cap 05/13/19 [Rx] Discharge Disposition: TRANSFER TO [facility]
[2019-05-13 08:57] LABS: African American GFR (CKD) >90 (>60 ml/min/1.73 sqM); Non-African American GFR(CKD) >90 (>60 ml/min/1.73 sqM)
--- NOTE | 2019-05-13 10:26 | P.PN ---
Subjective Progress Note Date: 05/13/19 Patient seen and examined lying in bed. Patient denies any fevers through the night, or acute changes. Patient was seen by his PCP Dr. Bui and has discharge order to return back to extended care facility. Objective - Vital Signs Vital signs: Vital Signs Temp 97.9 F 05/13/19 07:00 Pulse 68 05/13/19 07:00 Resp 20 05/13/19 08:00 BP 128/73 05/13/19 07:00 Pulse Ox 94 L 05/13/19 07:00 Intake & Output 05/12/19 05/13/19 05/13/19 18:59 06:59 18:59 Intake Total 200 Output Total 950 550 Balance -950 -350 Intake: Oral 200 Output: Urine 950 550 Other: Voiding Method Urinal Urinal Urinal # Voids 3 # Bowel Movements 1 - Exam General appearance: The patient is alert, oriented, in no acute distress. HET: Head is normocephalic and atraumatic. Neck: Supple without lymphadenopathy. Trachea midline. Heart: S1 S2. Regular rate and rhythm. Lungs: No crackles or wheezes are heard. Abdomen: Soft, nontender, nondistended with bowel sounds. Extremities: Normal skin color and turgor. Left lower extremity below the knee amputation site is warm and dry. Incision site healing well without any redness, drainage or sign of infection. Dressing with minimal serosanguineous drainage. Neurological: No focal deficits. Strength and sensation are grossly intact. - Labs CBC & Chem 7: 05/11/19 08:28 05/13/19 08:16 Labs: Microbiology - Last 24 Hours (Table) 05/08/19 19:18 Blood Culture - Preliminary Blood No Growth after 96 hours Assessment and Plan Assessment: #1 status post left below the knee amputation #2 elevated white count, likely partially due to hemoconcentration Plan: Patient has discharge orders to return to extended care facility. Infectious disease to discharge patient on oral antibiotics of their recommended choice. Continue with Aquacel and Kerlix dressing. Patient to follow-up with Dr. Farah in the clinic, may consider wound VAC at that time. Continue with protein supplementation and wound care. Patient to wear immobilizer. The above dictated assessment and findings were discussed with Dr. Farah. The impression and plan of care have been directed as dictated.
--- NOTE | 2019-05-13 14:00 | PN ---
PROGRESS NOTE DATE OF SERVICE: 05/13/2019 REASON FOR FOLLOWUP: Fever and left BKA stump wound, possible cellulitis. INTERVAL HISTORY: The patient is currently afebrile. Patient has been breathing comfortably. Denies having any chest pain. Did have some cough but not bringing up any sputum. No nausea, no vomiting. No abdominal pain, no diarrhea. PHYSICAL EXAMINATION: Blood pressure 128/73 with a pulse of 58, temperature 97.9, he is 94% on room air. General description is a middle-aged male, lying in bed in no distress. RESPIRATORY SYSTEM: Unlabored breathing, clear to auscultation anteriorly. HEART: S1, S2. Regular rate and rhythm. ABDOMEN: Soft, no tenderness. EXTREMITIES: Left BK stump incision with small wound. No purulent drainage. LABS: Wound culture has been negative. Blood culture has been negative. DIAGNOSTIC IMPRESSION AND PLAN: Patient admitted to the hospital with a fever and elevated white count. This patient did have necrosis of the left BKA stump, wound has been removed. Cultures have been negative for resistant pathogen. Antibiotic will be continued IV Rocephin 2 g daily for about a week and a midline will be placed and will discontinue the vancomycin. MMODL / IJN: [id number] /
[2019-05-13 14:17] VITALS: BP 105/59; PULSE 77; TEMP 97.8
[2019-05-13] MEDS: FERROUS SULFATE 325 MG TAB PO SCH (14:46)
[2019-05-14] MEDS ORDERED: VANCOMYCIN TROUGH DUE 1 EACH MISC MISCELLANE ONE (07:00)
--- NOTE | 2019-05-14 15:14 | CDI ---
Documentation Clarification Form Date: 05/14/19 From: Leslie Parekh CCS Phone: If you have a question about this query, please contact Karen Mcintosh, Railroad Inspector at [phone] between 8am and 5pm. Admit Date: 05/10/19 Discharge Date:05/13/19 Patient Name: Horacio Garza Visit Number: [id number] ATTENTION: The Clinical Documentation Specialists (CDI) and [facility] Coding Staff appreciate your assistance in clarifying documentation. Please respond to the clarification below the line at the bottom and electronically sign. The CDI & [facility] Coding staff will review the response and follow-up if needed. Please note: Queries are made part of the Legal Health Record. If you have any questions, please contact the author of this message via ITS. Dear Dr. Bui The patient presented with the following sepsis, pneumonia, COPD w/ Exac, necrosis of amputation stump. History/Risk Factors: Hx Diabetic Osteomyelitis/Gangrene, PNA, Cellulitis Clinical Indicators: AMS WBC: 13.0, 12.1 Lactic acid: 1.6 Blood cultures: No growth after 120 hours Treatment: IV Rocephin, IV Vancomycin ID Consult: Farhan In your professional opinion, please clarify if these findings signify the cause, if known: Condition Sepsis due to pneumonia Sepsis secondary to left BKA necrosis-this is the correct choice for this patient Sepsis unknown infectious etiology Other, please specify Unable to determine MTDD
== END 2019-05-13 16:51 | DRG 564 ==
LOC: EC 18:54 → 6NMEDSUR 20:54 → OBSVTOIN 05-10 08:10
PROVIDERS: ADMIT Family Medicine; ATTEND Family Medicine
PROC: 05HD33Z Insertion of Infusion Device into Right Cephalic Vein, Percutaneous Approach (ICD-10-PCS; principal; 2019-05-13 12:45)
DX: T87.54 Necrosis of amputation stump, left lower extremity (principal); A41.9 Sepsis, unspecified organism; J18.9 Pneumonia, unspecified organism; G93.41 Metabolic encephalopathy; J96.11 Chronic respiratory failure with hypoxia; J44.1 Chronic obstructive pulmonary disease with (acute) exacerbation; J44.0 Chronic obstructive pulmonary disease with (acute) lower respiratory infection; L03.116 Cellulitis of left lower limb; E11.51 Type 2 diabetes mellitus with diabetic peripheral angiopathy without gangrene; E11.40 Type 2 diabetes mellitus with diabetic neuropathy, unspecified; H91.90 Unspecified hearing loss, unspecified ear; M19.90 Unspecified osteoarthritis, unspecified site; K21.9 Gastro-esophageal reflux disease without esophagitis; F17.210 Nicotine dependence, cigarettes, uncomplicated; M10.9 Gout, unspecified; F41.9 Anxiety disorder, unspecified; F32.9 Major depressive disorder, single episode, unspecified; E66.9 Obesity, unspecified; E86.0 Dehydration; Y83.5 Amputation of limb(s) as the cause of abnormal reaction of the patient, or of later complication, without mention of misadventure at the time of the procedure; Z68.30 Body mass index [BMI] 30.0-30.9, adult; Z71.3 Dietary counseling and surveillance; Z71.6 Tobacco abuse counseling; Z79.899 Other long term (current) drug therapy; Z86.718 Personal history of other venous thrombosis and embolism; Z87.01 Personal history of pneumonia (recurrent); Z87.19 Personal history of other diseases of the digestive system; Z86.14 Personal history of Methicillin resistant Staphylococcus aureus infection; Z95.828 Presence of other vascular implants and grafts; Z86.19 Personal history of other infectious and parasitic diseases; Z89.511 Acquired absence of right leg below knee; Z99.81 Dependence on supplemental oxygen; Z98.890 Other specified postprocedural states; Z88.5 Allergy status to narcotic agent; Z82.49 Family history of ischemic heart disease and other diseases of the circulatory system; Z83.2 Family history of diseases of the blood and blood-forming organs and certain disorders involving the immune mechanism
CPT/HCPCS: 36410; 36415; 36600; 70450; 71046; 76937; 80048; 80053; 80202; 81003; 82550; 82565; 82805; 83605; 84145; 84484; 85025; 85027; 85610; 85730; 86140; 87040; 87070; 87205; 87502; 93005; 94640; 99291

== ENCOUNTER 2019-05-22 11:00 | Inpatient (IN) | payer MEDICARE ==
--- NOTE | 2019-05-22 12:23 | ED ---
General Adult HPI - General Chief complaint: Recheck/Abnormal Lab/Rx Stated complaint: Abnormal labs Time Seen by Provider: 05/22/19 11:10 Source: EMS Mode of arrival: EMS Limitations: altered mental status - History of Present Illness Initial comments: The patient is a 64-year-old male with past medical history of depression, COPD and chronic vascular disease who presents to the emergency department from [facility] with possible sepsis. Dr. Rockwell did call the emergency department to notify of the patient's transfer. He states that he has been caring for the patient while over at [facility]. The patient has been running a fever and has had drainage from his incision site on his left lower extremity stump. He states that the patient has a tendency to transition to sepsis very quickly and therefore he is concerned. He has also been less alert. He is requesting the patient be admitted with consult to Dr. Eze Farah. He was previously on antibiotics which she states that he finished. He did have a midline which was going to be hold. Upon my evaluation of the patient still in place. The patient is a very poor historian and has no complaints. He denies fevers or chills. Denies any chest or abdominal pain. No cough. No changes in his bowel or bladder habits. HPI is limited because of the patient's alteration in mentation - Related Data Home Medications Medication Instructions Recorded Confirmed Cetirizine HCl [Zyrtec] 10 mg PO DAILY@0900 02/09/19 05/22/19 Benzocaine/Menthol Lozeng [Cepacol 1 lozenge MUCOUS MEM Q2H PRN 05/09/19 05/22/19 lozenge] Bisacodyl 10 mg PO DAILY PRN 05/09/19 05/22/19 Dronabinol 2.5 mg PO BID@0600,1400 05/09/19 05/22/19 Ferrous Sulfate [Iron (65 MG 325 mg PO DAILY@1400 05/09/19 05/22/19 Elemental)] Lactose-Reduced Food [Ensure Plus] 1 can PO TID@0900,1300,209905/09/19 05/22/19 Lactulose 10 gm PO BID@0900,2100 05/09/19 05/22/19 Mag Hydrox/Aluminum Hyd/Simeth 30 ml PO Q6H PRN 05/09/19 05/22/19 [Mylanta Maximum Strength Liq] Sertraline HCl [Zoloft] 100 mg PO HS@209905/09/19 05/22/19 Sertraline [Zoloft] 25 mg PO HS@209905/09/19 05/22/19 Acetaminophen [Tylenol] 650 mg PO Q4H PRN 05/22/19 05/22/19 Oyster Shell Calciummg/Vitamin D 1 tab PO BID@0900,1700 05/22/19 05/22/19 200iu Potassium Chloride ER [K-Dur 10] 10 meq PO DAILY@0900 05/22/19 05/22/19 Pregabalin [Lyrica] 75 mg PO BID@0900,209905/22/19 05/22/19 Previous Rx's Medication Instructions Recorded Diazepam [Valium] 10 mg PO BID@0900,2100 #60 tab 05/13/19 HYDROcodone/APAP 10-325MG [[place] 1 tab PO Q4H PRN #120 tab 05/13/19 10-325] Doxycycline Hyclate 100 mg PO DAILY 14 Days #28 tab 05/26/19 metroNIDAZOLE [Flagyl] 500 mg PO TID #21 tab 05/26/19 Allergies Allergy/AdvReac Type Severity Reaction Status Date / Time hydromorphone [From Dilaudid] AdvReac Hallucinati Verified 05/22/19 15:24 ons Review of Systems ROS Statement: Those systems with pertinent positive or pertinent negative responses have been documented in the HPI. ROS Other: All systems not noted in ROS Statement are negative. Past Medical History Past Medical History: COPD, Deep Vein Thrombosis (DVT), GERD/Reflux, Hearing Disorder / Deafness, Osteoarthritis (OA), Pneumonia, Vascular Disorder Additional Past Medical History / Comment(s): Previous history of GI bleed, previous history of a right medial thigh abscess that was drained and a foreign body was removed and the patient had positive cultures for MRSA, previous peripheral vascular disease with a left fem-pop bypass surgery, severe COPD with FEV1 of 39% of predicted maintained on a combination of Advair and Spiriva, chronic smoker, history of DVT in 2007, history of open wounds at the level of the metatarsal joints with previous amputation transmetatarsal, previous history of osteomyelitis, chronic hypoxic respiratory failure limited on oxygen, history of gout History of Any Multi-Drug Resistant Organisms: CRE, MRSA Date of last positivie culture/infection: 11/21/18-MRSA MDRO Source:: Right Leg Past Surgical History: Orthopedic Surgery Additional Past Surgical History / Comment(s): Bilateral femoral pop bypass surgery, arthroscopic left knee surgery, bilateral inguinal hernia repair, left transmetatarsal amputation of the great toe, Removal right pinky bone,Previous transmetatarsal amputation of the left foot with subsequent revision, fem-pop bypass surgery, incision and drainage of a right mid thigh abscess Past Anesthesia/Blood Transfusion Reactions: No Reported Reaction Past Psychological History: Anxiety Smoking Status: Current some day smoker Past Alcohol Use History: None Reported Past Drug Use History: Marijuana - Past Family History Brother(s) Family Medical History: Coronary Artery Disease (CAD) Additional Family Medical History / Comment(s): heart attack/cabg Father Family Medical History: No Reported History Mother Family Medical History: Deep Vein Thrombosis (DVT) General Exam Limitations: altered mental status General appearance: alert, in no apparent distress Head exam: Present: atraumatic, normocephalic Eye exam: Present: PERRL, EOMI ENT exam: Present: normal exam, mucous membranes moist Neck exam: Present: normal inspection. Absent: tenderness, meningismus, lymphadenopathy Respiratory exam: Present: normal lung sounds bilaterally. Absent: respiratory distress, wheezes, rales, rhonchi, stridor Cardiovascular Exam: Present: regular rate, normal rhythm, normal heart sounds. Absent: systolic murmur, diastolic murmur, rubs, gallop, clicks GI/Abdominal exam: Present: soft, normal bowel sounds. Absent: distended, ten derness, guarding, rebound, rigid Extremities exam: Present: other (left BKA. Distal incision is well approximated. Mild redness with pustular drainage from incision. Compartments soft) Course Vital Signs 05/22/19 05/22/19 11:06 14:20 Temperature 97.3 F L Pulse Rate 73 81 Respiratory 18 18 Rate Blood Pressure 104/64 115/82 O2 Sat by Pulse 95 96 Oximetry EKG Findings - EKG Comments: EKG Findings:: EKG demonstrates normal sinus rhythm with a ventricular rate of 75. [place] interval 148. QRS 96. QTC 451. No acute ST segment elevations or depressions concerning for ischemic changes Medical Decision Making - Medical Decision Making Upon arrival the patient was placed in room 11. A thorough history and physical exam is performed. The patient does have a PICC line still in place. I did recommend laboratory studies, chest x-ray and a x-ray of the patient's left stump. The pulse consult elevated at 13. Remainder of laboratory studies are essentially unremarkable. Urine is positive for protein. Influenza AB are not detected. Chest x-ray demonstrates central perihilar bronchial cuffing consistent with acute bronchiolitis with new more focal consolidation of the left suprahilar region. The patient does have a lower extremity x-ray performed which demonstrates the below-knee amputation with no convincing radiographic evidence of acute cellulitis. Patient is updated. Dr. Rockwell did want patient admitted to the hospital to Dr. Recio's service. He is requesting infectious disease consult and consult Dr. Farah. I did unwrap the patient's distal stump does reveal some yellowish drainage. Blood cultures were obtained. Patient was initiated on Rocephin as this is the medication was previously treated with. He was then transferred to the floor in stable condition - Lab Data Result diagrams: 05/26/19 02:21 05/26/19 02:21 Lab Results 05/22/19 05/22/19 05/22/19 Range/Units 12:33 12:33 12:33 WBC 13.0 H (3.8-10.6) k/uL RBC 4.20 L (4.30-5.90) m/uL Hgb 11.9 L (13.0-17.5) gm/dL Hct 36.6 L (39.0-53.0) % MCV 87.1 (80.0-100.0) fL MCH 28.3 (25.0-35.0) pg MCHC 32.5 (31.0-37.0) g/dL RDW 18.5 H (11.5-15.5) % Plt Count 240 (150-450) k/uL Neutrophils % 82 % Lymphocytes % 7 % Monocytes % 7 % Eosinophils % 3 % Basophils % 0 % Neutrophils # 10.6 H (1.3-7.7) k/uL Lymphocytes # 0.9 L (1.0-4.8) k/uL Monocytes # 0.9 (0-1.0) k/uL Eosinophils # 0.4 (0-0.7) k/uL Basophils # 0.0 (0-0.2) k/uL Anisocytosis Slight PT 9.8 (9.0-12.0) sec INR 0.9 (<1.2) APTT 31.3 H (22.0-30.0) sec Sodium 136 L (137-145) mmol/L Potassium 3.6 (3.5-5.1) mmol/L Chloride 94 L (98-107) mmol/L Carbon Dioxide 35 H (22-30) mmol/L Anion Gap 7 mmol/L BUN 28 H (9-20) mg/dL Creatinine 0.76 (0.66-1.25) mg/dL Est GFR (CKD-EPI)AfAm >90 (>60 ml/min/1.73 sqM) Est GFR (CKD-EPI)NonAf >90 (>60 ml/min/1.73 sqM) Glucose 153 H (74-99) mg/dL Plasma Lactic Acid [place] (0.7-2.0) mmol/L Calcium 8.9 (8.4-10.2) mg/dL Total Bilirubin 0.4 (0.2-1.3) mg/dL AST 28 (17-59) U/L ALT 22 (4-49) U/L Alkaline Phosphatase 145 H (38-126) U/L Total Protein 6.6 (6.3-8.2) g/dL Albumin 3.2 L (3.5-5.0) g/dL Influenza Type A RNA (Not Detectd) Influenza Type B (PCR) (Not Detectd) 05/22/19 05/22/19 Range/Units 12:33 12:33 WBC (3.8-10.6) k/uL RBC (4.30-5.90) m/uL Hgb (13.0-17.5) gm/dL Hct (39.0-53.0) % MCV (80.0-100.0) fL MCH (25.0-35.0) pg MCHC (31.0-37.0) g/dL RDW (11.5-15.5) % Plt Count (150-450) k/uL Neutrophils % % Lymphocytes % % Monocytes % % Eosinophils % % Basophils % % Neutrophils # (1.3-7.7) k/uL Lymphocytes # (1.0-4.8) k/uL Monocytes # (0-1.0) k/uL Eosinophils # (0-0.7) k/uL Basophils # (0-0.2) k/uL Anisocytosis PT (9.0-12.0) sec INR (<1.2) APTT (22.0-30.0) sec Sodium (137-145) mmol/L Potassium (3.5-5.1) mmol/L Chloride (98-107) mmol/L Carbon Dioxide (22-30) mmol/L Anion Gap mmol/L BUN (9-20) mg/dL Creatinine (0.66-1.25) mg/dL Est GFR (CKD-EPI)AfAm (>60 ml/min/1.73 sqM) Est GFR (CKD-EPI)NonAf (>60 ml/min/1.73 sqM) Glucose (74-99) mg/dL Plasma Lactic Acid [place] 1.4 (0.7-2.0) mmol/L Calcium (8.4-10.2) mg/dL Total Bilirubin (0.2-1.3) mg/dL AST (17-59) U/L ALT (4-49) U/L Alkaline Phosphatase (38-126) U/L Total Protein (6.3-8.2) g/dL Albumin (3.5-5.0) g/dL Influenza Type A RNA Not Detected (Not Detectd) Influenza Type B (PCR) Not Detected (Not Detectd) Disposition Clinical Impression: HCAP (healthcare-associated pneumonia), Peripheral vascular disease, Cellulitis of left foot Disposition: ADMITTED IP TO THIS [facility] Condition: Stable Is patient prescribed a controlled substance at d/c from ED?: No Decision to Admit Reason: Admit from EC Decision Date: 05/22/19 Decision Time: 13:41
--- NOTE | 2019-05-22 12:24 | XR ---
EXAMINATION TYPE: XR chest 2V DATE OF EXAM: 05/22/2019 COMPARISON: Prior chest x-ray May 13, 2019. HISTORY: History of COPD with fever. TECHNIQUE: Frontal and lateral views of the chest are obtained. FINDINGS: There is perihilar peribronchial cuffing with some left suprahilar extension of opacity to wards the periphery. No pleural effusion or pneumothorax. The cardiac silhouette size is stable and u pper limits of normal. The osseous structures are intact. IMPRESSION: Central perihilar bronchial cuffing consistent with acute bronchiolitis with new more fo guido consolidation left suprahilar region.
--- NOTE | 2019-05-22 12:26 | XR ---
EXAMINATION TYPE: XR knee complete LT DATE OF EXAM: 05/22/2019 CLINICAL HISTORY: Pain and swelling rule out osteomyelitis TECHNIQUE: Three views of the left knee are obtained. COMPARISON: Prior left leg x-ray May 08, 2019. FINDINGS: There is no acute fracture/dislocation evident in left knee. Meniscal calcification consis tent with chondrocalcinosis. Bvhy-[id number] tricompartment joint space loss. No new suspicious jarrod ical destruction or periosteal reaction at site of amputation proximal tibia and fibular diaphysis. O ccasional scattered surgical clips throughout the left knee. Interval removal of distal skin claribel noted. IMPRESSION: There is no convincing radiographic evidence for acute osteomyelitis.
[2019-05-22 12:50] LABS: Anisocytosis Slight; Basophils % (A) 0 %; Eosinophils # (A) 0.4 k/uL (0-0.7); Eosinophils % (A) 3 %; HCT 36.6 % (39.0-53.0); HGB 11.9 gm/dL (13.0-17.5); Lymphocytes # (A) 0.9 k/uL (1.0-4.8); Lymphocytes % (A) 7 %; MCH 28.3 pg (25.0-35.0); MCHC 32.5 g/dL (31.0-37.0); MCV 87.1 fL (80.0-100.0); Mean Platelet Volume 8.1; Monocytes # (A) 0.9 k/uL (0-1.0); Monocytes % (A) 7 %; Neutrophils # (A) 10.6 k/uL (1.3-7.7); Neutrophils % (A) 82 %; Platelet Count 240 k/uL (150-450); RDW 18.5 % (11.5-15.5)
[2019-05-22 12:52] LABS: INR 0.9 (<1.2); Partial Thromboplastin Time 31.3 sec (22.0-30.0); Prothrombin Time 9.8 sec (9.0-12.0)
[2019-05-22 12:54] LABS: ALT 22 U/L (4-49); AST 28 U/L (17-59); African American GFR (CKD) >90 (>60 ml/min/1.73 sqM); Albumin 3.2 g/dL (3.5-5.0); Alkaline Phosphatase 145 U/L (38-126); Anion Gap 7 mmol/L; Blood Urea Nitrogen 28 mg/dL (9-20); Calcium 8.9 mg/dL (8.4-10.2); Carbon Dioxide 35 mmol/L (22-30); Chloride 94 mmol/L (98-107); Glucose 153 mg/dL (74-99); Non-African American GFR(CKD) >90 (>60 ml/min/1.73 sqM); Potassium 3.6 mmol/L (3.5-5.1); Sodium 136 mmol/L (137-145); Total Bilirubin 0.4 mg/dL (0.2-1.3); Total Protein 6.6 g/dL (6.3-8.2)
[2019-05-22] MEDS ORDERED: cefTRIAXone IN SWFI 1,000 MG/10 ML SYRINGE IVP STA (13:31)
[2019-05-22] MEDS ORDERED: ACETAMINOPHEN TAB 325 MG TAB PO PRN ×2 (13:41→15:56)
[2019-05-22] MEDS ORDERED: NALOXONE 0.4 MG/ML 1 ML VIAL IV PRN (13:41)
[2019-05-22] MEDS ORDERED: IBUPROFEN 400 MG TAB PO PRN (13:41)
[2019-05-22] MEDS: SODIUM CHLORIDE 0.9% 1,000 ML IV SCH (14:17)
[2019-05-22] MEDS ORDERED: BISACODYL 5 MG TABLET.DR PO PRN (15:56)
[2019-05-22] MEDS ORDERED: BENZOCAINE/MENTHOL LOZENG 1 EACH LOZENGE MUCOUS MEM PRN (15:56)
[2019-05-22] MEDS ORDERED: ALPRAZolam 0.25 MG TAB PO PRN (15:58)
[2019-05-22] MEDS ORDERED: TEMAZEPAM 15 MG CAP PO PRN (15:58)
[2019-05-22 16:05] LABS: Appearance,Urine Clear (Clear); Bilirubin,Urine Negative (Negative); Blood,Urine Negative (Negative); Color,Urine Yellow; Glucose,Urine (UA) Negative (Negative); Ketones,Urine Negative (Negative); Leukocyte Esterase,Urine Negative (Negative); Nitrite,Urine Negative (Negative); PH, Urine 6.5 (5.0-8.0); Protein,Urine Trace (Negative); Specific Gravity,Urine 1.018 (1.001-1.035); Urobilinogen,Urine <2.0 mg/dL (<2.0)
[2019-05-22] MEDS: DIAZEPAM 5 MG TAB PO SCH (19:45)
[2019-05-22] MEDS: SERTRALINE 25 MG TAB PO SCH (19:46)
[2019-05-22] MEDS: PREGABALIN 75 MG CAP PO SCH (19:46)
[2019-05-22] MEDS: SERTRALINE 100 MG TAB PO SCH (19:46)
[2019-05-22] MEDS: HEPARIN SODIUM,PORCINE 5,000 UNIT/ML 1 ML VIAL SQ SCH (19:46)
[2019-05-22] MEDS: LACTULOSE 20 GM/30 ML CUP PO SCH ×2 (19:46→19:48)
[2019-05-22] MEDS ORDERED: NON FORMULARY DRUG (Lactose-Reduced Food [Ensure Plus] 1 CAN) PO SCH (21:00)
--- NOTE | 2019-05-22 21:34 | HP ---
HISTORY AND PHYSICAL I am covering for Dr. Bui. DATE OF SERVICE: 05/22/2019 CHIEF COMPLAINTS: Abnormal labs with possible sepsis. HISTORY OF PRESENT ILLNESS: This 64-year-old gentleman with a past medical history of multiple medical problems including left below-knee amputation for severe left extremity cellulitis and abscess, had episode of possible cellulitis previously, but patient improved and the patient was sent to [facility]. In the [facility] the patient followed by Dr. Bui in the outpatient setting. The patient is currently in [facility] on the [place]. The patient running a fever and some drainage in the incision site on the left lower extremity and the patient had previous history of sepsis and because of that, the patient was transferred to [facility] and admitted for further evaluation and treatment. Dr. Farah is doing the surgery. Dr. Real and Dr. Farah has been consulted at this time. Currently the WBC elevated to 13, and sodium is 136. UA is unremarkable. Influenza is negative and the patient also had a chest x-ray which was reviewed personally by me that showed no evidence of any pneumonia. Patient admitted for further evaluation and treatment. Some peribronchial coughing was noted. There is no history of any chest pain, palpitation, headache, loss of conscious. Patient mildly confused at this time. PAST MEDICAL HISTORY: Left below-knee amputation. History of COPD, DVT, GERD, history of DJD, history of pneumonia, history of previous history of gastrointestinal bleed. MEDICATIONS: 1. Zoloft 25 mg q.h.s. 2. Zoloft 100 mg q.h.s. 3. Lyrica 75 mg p.o. b.i.d. 4. K-Dur 20 mEq p.o. daily. 5. Mylanta. 6. Lactulose 10 g p.o. b.i.d. 7. [place] 10 mg q.4 p.r.n. 8. Iron sulfate 320 mg p.o. daily. 9. Dronabinol 2.5 mg b.i.d. 10.Valium 10 mg p.o. b.i.d. 11.Zyrtec 10 mg p.o. daily. 12.Bisacodyl 10 mg daily p.r.n. 13.Cepacol 1 application q.2h p.r.n. 14.Tylenol 650 q.4 p.r.n. ALLERGIES: DILAUDID. FAMILY HISTORY: History of DVT, CVA in the family. SOCIAL HISTORY: History of smoking continued ongoing. REVIEW OF SYSTEMS: ENT: No diminished vision. No diminished hearing. Cardiovascular no angina or palpitations. Respiratory: As mentioned earlier. GASTROINTESTINAL: As mentioned earlier. no dysuria. Nervous System as mentioned earlier. Allergy/Immunology: No asthma or hayfever. Musculoskeletal as mentioned earlier. HEMATOLOGY/ONCOLOGY: No history of anemia. ENDOCRINE: As mentioned earlier. CONSTITUTIONAL: As mentioned earlier. DERMATOLOGY: Negative. RHEUMATOLOGY: Negative. PSYCHIATRY: As mentioned earlier. PHYSICAL EXAMINATION: Alert and oriented x2. Pulse 85, blood pressure 130/77, respirations 18, temperature 97.6, pulse ox 97% on room air. HEENT: Conjunctivae normal. Oral mucosa moist. NECK is no jugular venous distention. No carotid bruit. No lymph node enlargement. Cardiovascular system: S1, S2. No S3, no S4. RESPIRATORY: Breath sounds diminished in the bases. A few scattered rhonchi. No crackles. ABDOMEN: Soft, nontender. No mass palpable. No hepatosplenomegaly. LEGS status post left below-knee amputation. Minimal drainage and erythema present. No tenderness. Nervous system: Higher functions as mentioned earlier. Moves all 4 limbs. No focal motor or sensory deficit. Lymphatics: No lymph nodes palpable in the neck, axillae or groin. JOINTS no active deforming arthropathy. LAB STUDIES: WBC 13, hemoglobin 11.9, sodium 130, potassium 3.6. ASSESSMENT: 1. Fever with possible acute right stump cellulitis with possible sepsis present on admission. 2. Change in mental status, metabolic encephalopathy, acute on chronic possibly secondary to sepsis. 3. Increased WBC. 4. Anemia, normocytic anemia of chronic disease. 5. Hyponatremia. 6. Mild hypoalbuminemia with mild protein calorie malnutrition. 7. History of chronic obstructive pulmonary disease. 8. History of deep vein thrombosis. 9. History of gastroesophageal reflux disease. 10.History of degenerative joint disease. 11.History of pneumonia. 12.History of previous history of gastrointestinal bleed. 13.History of previous sepsis. 14.History of previous MRSA. 15.History of chronic obstructive pulmonary disease. 16.History of deep vein thrombosis. 17.History of nicotine dependence. 18.History of osteomyelitis. 19.Chronic hypoxic respiratory failure. 20.History of CRE and MRSA. 21.CRE, MDRO, KPC not detected by [facility] the left foot previously. 22.History of degenerative joint disease. 23.Anxiety. 24.History of continued ongoing nicotine dependence. 25.FULL CODE. RECOMMENDATIONS AND DISCUSSION: In this 64-year-old gentleman who presented with multiple complex medical issues, we will monitor the patient closely, continue the current medications, management and symptomatic treatment. I would recommend infectious disease evaluation because of the extensive history of infections and recent amputation. Otherwise, obtain the cultures. Resume the home medications. DVT prophylaxis. Incentive spirometry. Guarded prognosis because of multiple complex medical issues. Further recommendations to follow. Copy of this dictation being forwarded to Dr. Bui who is the primary physician. MMODL / IJN: [id number] /
[2019-05-23] MEDS: SODIUM CHLORIDE 0.9% 1,000 ML IV SCH ×2 (03:13→15:18)
[2019-05-23] MEDS ORDERED: DRONABINOL 2.5 MG CAPSULE PO SCH (06:00)
[2019-05-23 07:49] LABS: Anisocytosis Slight; Basophils % (A) 0 %; Eosinophils # (A) 0.3 k/uL (0-0.7); Eosinophils % (A) 2 %; HCT 32.7 % (39.0-53.0); HGB 10.4 gm/dL (13.0-17.5); Lymphocytes # (A) 1.4 k/uL (1.0-4.8); Lymphocytes % (A) 9 %; MCH 27.5 pg (25.0-35.0); MCHC 31.9 g/dL (31.0-37.0); MCV 86.2 fL (80.0-100.0); Monocytes # (A) 0.9 k/uL (0-1.0); Monocytes % (A) 6 %; Neutrophils # (A) 12.5 k/uL (1.3-7.7); Neutrophils % (A) 82 %; Platelet Count 281 k/uL (150-450); RBC 3.79 m/uL (4.30-5.90); WBC 15.3 k/uL (3.8-10.6)
[2019-05-23 08:01] LABS: African American GFR (CKD) >90 (>60 ml/min/1.73 sqM); Anion Gap 8 mmol/L; Blood Urea Nitrogen 21 mg/dL (9-20); Calcium 8.4 mg/dL (8.4-10.2); Carbon Dioxide 29 mmol/L (22-30); Chloride 96 mmol/L (98-107); Glucose 95 mg/dL (74-99); Non-African American GFR(CKD) >90 (>60 ml/min/1.73 sqM); Potassium 3.5 mmol/L (3.5-5.1); Sodium 133 mmol/L (137-145)
[2019-05-23] MEDS: PREGABALIN 75 MG CAP PO SCH ×2 (08:12→21:13)
[2019-05-23] MEDS: DIAZEPAM 5 MG TAB PO SCH ×2 (08:12→21:12)
[2019-05-23] MEDS: PANTOPRAZOLE 40 MG TABLET PO SCH (08:14)
[2019-05-23] MEDS: HEPARIN SODIUM,PORCINE 5,000 UNIT/ML 1 ML VIAL SQ SCH ×2 (08:14→21:13)
[2019-05-23] MEDS: metroNIDAZOLE 500 MG TAB PO SCH ×3 (08:15→21:13)
[2019-05-23] MEDS: LACTULOSE 20 GM/30 ML CUP PO SCH ×2 (08:15→21:13)
[2019-05-23] MEDS: LORATADINE 10 MG TAB PO SCH (08:15)
[2019-05-23] MEDS: POTASSIUM CHLORIDE ER 10 MEQ TAB.ER.PRT PO SCH (08:15)
[2019-05-23] MEDS ORDERED: AZITHROMYCIN 250 MG TAB PO SCH (09:00)
[2019-05-23] MEDS ORDERED: VANCOMYCIN IV PER PHARMACY 1 EACH MISC MISCELLANE PRN (09:15)
--- NOTE | 2019-05-23 09:26 | P.CONS ---
History of Present Illness - Reason for Consult Consult date: 05/22/19 fever and left bka cellulitis Requesting physician: Uriel Recio - Chief Complaint Fever x few days - History of Present Illness Patient is a 64-year-old male with a past medical history for diabetic foot infection requiring left below the knee amputation patient recently he did have admission to the hospital with fever and concern for possible cellulitis of the left BKA stump patient did get a midline and subsequently was transferred to [facility] on the [place] on her Rocephin 2 g daily as previous culture positive for Klebsiella and strep apparently the patient has completed his antibiotic therapy to the midline was not removed patient has been sent to [facility] ER by the physician taking care of him at the facility with concern for the patient running any fever and started having a dehiscence of his left BKA stump and apparently was some drainage with the symptom the patient was sent to ER on arrival to the ER patient has been afebrile patient had did have elevated white count of 13,000 UA has been negative influenza PCR was negative patient did have a x-rays of the knee were no convincing radiographic evidence for acute osteomyelitis chest x-ray reported central perihilar bronchial cuffing consistent with acute bone colitis patient received a dose of Rocephin subsequent has been admitted to hospital infectious disease was consulted for further recommendation about antibiotic patient himself is a very poor historian he denies having any chest pain or shortness of breath he did have been some cough no sputum production has been complaining of some pain into the left BKA stump but not able to quantify it any further for the time he never was any drainage from his left BKA stump on the dressing that was provided to him at [facility]. Review of Systems Positive point has been mentioned in HPI rest of the systems are negative Past Medical History Past Medical History: COPD, Deep Vein Thrombosis (DVT), GERD/Reflux, Hearing Disorder / Deafness, Osteoarthritis (OA), Pneumonia, Vascular Disorder Additional Past Medical History / Comment(s): Previous history of GI bleed, previous history of a right medial thigh abscess that was drained and a foreign body was removed and the patient had positive cultures for MRSA, previous peripheral vascular disease with a left fem-pop bypass surgery, severe COPD with FEV1 of 39% of predicted maintained on a combination of Advair and Spiriva, chronic smoker, history of DVT in 2007, history of open wounds at the level of the metatarsal joints with previous amputation transmetatarsal, previous history of osteomyelitis, chronic hypoxic respiratory failure limited on oxygen, history of gout History of Any Multi-Drug Resistant Organisms: CRE, MRSA Year Discovered:: 11/21/18-MRSA MDRO Source:: Right Leg Past Surgical History: Orthopedic Surgery Additional Past Surgical History / Comment(s): Bilateral femoral pop bypass surgery, arthroscopic left knee surgery, bilateral inguinal hernia repair, left transmetatarsal amputation of the great toe, Removal right pinky bone,Previous transmetatarsal amputation of the left foot with subsequent revision, fem-pop bypass surgery, incision and drainage of a right mid thigh abscess Past Anesthesia/Blood Transfusion Reactions: No Reported Reaction Past Psychological History: Anxiety Smoking Status: Current some day smoker Past Alcohol Use History: None Reported Past Drug Use History: Marijuana - Past Family History Brother(s) Family Medical History: Coronary Artery Disease (CAD) Additional Family Medical History / Comment(s): heart attack/cabg Father Family Medical History: No Reported History Mother Family Medical History: Deep Vein Thrombosis (DVT) Medications and Allergies Home Medications Medication Instructions Recorded Confirmed Type Cetirizine HCl [Zyrtec] 10 mg PO DAILY@0900 02/09/19 05/22/19 History Benzocaine/Menthol Lozeng [Cepacol 1 lozenge MUCOUS MEM Q2H PRN 05/09/19 05/22/19 History lozenge] Bisacodyl 10 mg PO DAILY PRN 05/09/19 05/22/19 History Dronabinol 2.5 mg PO BID@0600,1400 05/09/19 05/22/19 History Ferrous Sulfate [Iron (65 MG 325 mg PO DAILY@1400 05/09/19 05/22/19 History Elemental)] Lactose-Reduced Food [Ensure Plus] 1 can PO TID@0900,1300,209905/09/19 05/22/19 History Lactulose 10 gm PO BID@0900,209905/09/19 05/22/19 History Mag Hydrox/Aluminum Hyd/Simeth 30 ml PO Q6H PRN 05/09/19 05/22/19 History [Mylanta Maximum Strength Liq] Sertraline HCl [Zoloft] 100 mg PO HS@209905/09/19 05/22/19 History Sertraline [Zoloft] 25 mg PO HS@2100 05/09/19 05/22/19 History Diazepam [Valium] 10 mg PO BID@0900,2100 #60 tab 05/13/19 05/22/19 Rx HYDROcodone/APAP 10-325MG [[place] 1 tab PO Q4H PRN #120 tab 05/13/19 05/22/19 Rx 10-325] Acetaminophen [Tylenol] 650 mg PO Q4H PRN 05/22/19 05/22/19 History Oyster Shell Calciummg/Vitamin D 1 tab PO BID@0900,1700 05/22/19 05/22/19 History 200iu Potassium Chloride ER [K-Dur 10] 10 meq PO DAILY@0900 05/22/19 05/22/19 History Pregabalin [Lyrica] 75 mg PO BID@0900,2100 05/22/19 05/22/19 History Allergies Allergy/AdvReac Type Severity Reaction Status Date / Time hydromorphone [From Dilaudid] AdvReac Hallucinati Verified 05/22/19 15:24 ons Physical Exam Vitals: Vital Signs Temp Pulse Pulse Pulse Resp BP BP 05/23/19 04:58 99.0 F 68 15 114/67 05/22/19 21:28 98.3 F 58 L 17 145/69 05/22/19 14:51 97.6 F 85 18 133/76 05/22/19 14:20 81 18 115/82 05/22/19 11:06 97.3 F L 73 18 104/64 Pulse Ox 05/23/19 04:58 92 L 05/22/19 21:28 92 L 05/22/19 14:51 05/22/19 14:20 96 05/22/19 11:06 95 Intake and Output 05/22/19 05/23/19 05/23/19 21:59 06:59 14:59 Intake Total 300 Output Total 400 Balance -100 Intake: Oral 300 Output: Urine 400 Other: Voiding Method Urinal Incontinent # Voids Weight GENERAL DESCRIPTION: Middle-aged male lying in bed, no distress. No tachypnea or accessory muscle of respiration use. HEENT: Shows Pallor , no scleral icterus. Oral mucous membrane is dry. NECK: Trachea central, no thyromegaly. LUNGS: Unlabored breathing. Clear to auscultation anteriorly. No wheeze or crackle. HEART: S1, S2, regular rate and rhythm. ABDOMEN: Soft, no tenderness , guarding or rigidity EXTREMITIES: Left BKA stump incision is currently open there is no significant slough tissue or surrounding redness no foul-smelling drainage was noticed. SKIN: No rash, no masses palpable. NEUROLOGICAL: The patient is awake, alert, oriented x3, mood and affect normal. Results CBC & Chem 7: 05/23/19 07:15 05/23/19 07:15 Labs: Abnormal Lab Results - Last 24 Hours (Table) 05/22/19 05/22/19 05/22/19 Range/Units 12:33 12:33 12:33 WBC 13.0 H (3.8-10.6) k/uL RBC 4.20 L (4.30-5.90) m/uL Hgb 11.9 L (13.0-17.5) gm/dL Hct 36.6 L (39.0-53.0) % RDW 18.5 H (11.5-15.5) % Neutrophils # 10.6 H (1.3-7.7) k/uL Lymphocytes # 0.9 L (1.0-4.8) k/uL APTT 31.3 H (22.0-30.0) sec Sodium 136 L (137-145) mmol/L Chloride 94 L (98-107) mmol/L Carbon Dioxide 35 H (22-30) mmol/L BUN 28 H (9-20) mg/dL Glucose 153 H (74-99) mg/dL Alkaline Phosphatase 145 H (38-126) U/L Albumin 3.2 L (3.5-5.0) g/dL Urine Protein (Negative) 05/22/19 05/23/19 05/23/19 Range/Units 15:50 07:15 07:15 WBC 15.3 H (3.8-10.6) k/uL RBC 3.79 L (4.30-5.90) m/uL Hgb 10.4 L (13.0-17.5) gm/dL Hct 32.7 L (39.0-53.0) % RDW 18.0 H (11.5-15.5) % Neutrophils # 12.5 H (1.3-7.7) k/uL Lymphocytes # (1.0-4.8) k/uL APTT (22.0-30.0) sec Sodium 133 L (137-145) mmol/L Chloride 96 L (98-107) mmol/L Carbon Dioxide (22-30) mmol/L BUN 21 H (9-20) mg/dL Glucose (74-99) mg/dL Alkaline Phosphatase (38-126) U/L Albumin (3.5-5.0) g/dL Urine Protein Trace H (Negative) Assessment and Plan Assessment: patient being sent to hospital with fever and concern for left BKA stump infection in this patient currently do not have any fever but did have mild elevated white count of 13,000 the left BKA stump wound with no significant slough tissue or redness or purulent drainage x-rays were negative for any bony changes chest x-ray raised the possibility of bronchitis in this patient midline was almost out and may have been the source of his fever (1) Fever Current Visit: Yes Status: Acute Code(s): R50.9 - FEVER, UNSPECIFIED S NOMED Code(s): 302712156 Plan: 1-midline to be discontinued is almost out, tip could not have been sent and it was right on the surface of his skin 2-we will try to obtain a sputum for Gram stain and culture 3-local wound care to the left BKA stump with Aquacel silver dressing 4-vancomycin pharmacy to dose her with a target trough of 15 while watching her kidney function and Vanco trough closely. 5-cefepime 2 g every 12 hours We will follow on clinical condition and cultures to further adjust medication if needed Thank you for this consultation we will follow the patient along with you Time with Patient: Greater than 30
[2019-05-23] MEDS: CEFEPIME 2 GM in SODIUM CHLORIDE 0.9% 100 ML IVPB SCH ×2 (09:32→21:16)
[2019-05-23] MEDS: VANCOMYCIN 1,250 MG in SODIUM CHLORIDE 0.9% 250 ML IVPB SCH (11:24)
[2019-05-23] MEDS: FERROUS SULFATE 325 MG TAB PO SCH (11:25)
[2019-05-23] MEDS: MULTIVITAMINS, THERA 1 EACH TAB PO SCH (11:25)
[2019-05-23] MEDS: FOLIC ACID 1 MG TAB PO SCH (11:26)
[2019-05-23] MEDS: THIAMINE 100 MG TAB PO SCH (11:26)
--- NOTE | 2019-05-23 11:38 | CT ---
EXAMINATION TYPE: CT lower extremity LT w con DATE OF EXAM: 05/23/2019 COMPARISON: 07/31/2012 HISTORY: 64 year-old male left BKA stump infection, leg infection TECHNIQUE: Contiguous axial scanning of the left knee through the BKA performed with IV Contrast, pat ient injected with 100 mL of Isovue 300. Coronal/sagittal reconstructions performed. CT DLP: 723.9 mGycm Automated exposure control for dose reduction was used. FINDINGS: Images demonstrated left yykle-iis-hilg amputation. The osteotomy margin remains sharply demarcated. No periostitis or osteolysis. Soft tissue swelling at the stump without abnormal fluid collection identified. Extensive vascular ca lcifications are noted. Moderate knee joint effusion. Some scattered synovial and meniscal calcifications may be idiopathic o r could reflect CPPD. IMPRESSION: POST SURGICAL CHANGES OF LEFT BKA. THERE IS SOME SOFT TISSUE SWELLING THAT COULD REFLECT CELLULITIS. THE BKA OSTEOTOMY MARGIN REMAINS SHARPLY DEMARCATED. NO PERIOSTITIS OR OSTEOLYSIS TO SUGGEST OSTEOMYE LITIS AT THIS TIME. NO ABSCESS FORMATION
[2019-05-23] MEDS: HYDROcodone/APAP 10-325MG 1 EACH TAB PO PRN (19:39)
[2019-05-23] MEDS: SERTRALINE 100 MG TAB PO SCH (21:13)
--- NOTE | 2019-05-23 22:07 | PN ---
PROGRESS NOTE DATE OF SERVICE: 05/23/2019 I am covering for Dr. Bui. This 64-year-old gentleman who was admitted with fever with possibly acute right stump cellulitis, is being closely. The patient is also mildly confused. Lower extremity CT scan was done, recommended by ID which showed postsurgical changes of the left BKA, some soft tissue swelling indicating some cellulitis. The BKA site remains sharply demarcated and osteomyelitis is unlikely. PAST MEDICAL HISTORY: Reviewed. REVIEW OF SYSTEMS: Could not be taken, the patient is slightly drowsy at this time. CURRENT MEDICATIONS: 1. Tylenol p.r.n. 2. [place] 10 mg q.4 p.r.n. 3. Xanax 0.5 t.i.d. 4. Cepacol. 5. Dulcolax 5 mg 3 b.i.d. 6. Valium. 7. Heparin. 8. Motrin. 9. Cephalexin. 10.Claritin. 11.Flagyl. 12.Multivitamins. 13.Narcan. 14.Protonix. 15.K-Dur. 16.Lyrica. 17.Zoloft. 18.Restoril. 19.Vitamin B1. 20.Vancomycin. PHYSICAL EXAM: Patient is alert and oriented x3. Pulse 80, blood pressure 117/69, respirations 16, temperature 98.2, pulse ox 98% on room air. HEENT: Conjunctivae normal. Oral mucosa moist. NECK: No jugular venous distention. No lymph node enlargement. CARDIOVASCULAR: S1, S2. RESPIRATORY: Diminished breath sounds at the bases. Scattered rhonchi. ABDOMEN: Soft, nontender. LEGS: Status post left below knee amputation. NERVOUS SYSTEM: No focal deficits. LABS: WBC 15.2, hemoglobin 10.4, sodium 133 and influenza is negative. The cultures are also pending. ASSESSMENT: 1. Fever with possible sepsis with possible acute right stump cellulitis, present on admission. 2. Change in mental status, metabolic encephalopathy, acute on chronic, possibly secondary to sepsis. 3. Increased WBC. 4. Anemia, normocytic anemia of chronic disease. 5. Hyponatremia. 6. Mild hypoalbuminemia with mild protein calorie malnutrition. 7. Chronic obstructive pulmonary disease. 8. History of deep venous thrombosis. 9. Gastroesophageal reflux disease. 10.History of degenerative joint disease. 11.History of pneumonia. 12.Previous history of gastrointestinal bleed. 13.Previous sepsis. 14.History of previous MRSA. 15.History of nicotine dependence. 16.History of osteomyelitis. 17.Chronic hypoxic respiratory failure on home O2. 18.History of CRE and MRSA. RECOMMENDATIONS AND DISCUSSION: Recommend to continue current medications, continue to monitor, symptomatic treatment. Continue with the IV antibiotics. Otherwise, follow the cultures. Guarded prognosis. The CT scan report noted. Further recommendations to follow. MMODL / IJN: [id number] /
[2019-05-24] MEDS: VANCOMYCIN 1,250 MG in SODIUM CHLORIDE 0.9% 250 ML IVPB SCH ×2 (02:47→18:13)
[2019-05-24] MEDS: SODIUM CHLORIDE 0.9% 1,000 ML IV SCH ×2 (05:20→21:07)
--- NOTE | 2019-05-24 07:25 | PN ---
PROGRESS NOTE DATE OF SERVICE: 05/23/2019 REASON FOR FOLLOWUP: Left BKA wound and a question of cellulitis. INTERVAL HISTORY: The patient is currently afebrile, has been breathing comfortably. Patient denies having any chest pain or shortness of breath or cough. No abdominal pain or any worsening pain to the left BKA stump. The patient has been questioning why he is here in the hospital. PHYSICAL EXAMINATION: Blood pressure 110/68 with a pulse of 107, temperature 98.1. He is 92% on room air. General description is a middle-aged male lying in bed in no distress. RESPIRATORY SYSTEM: Unlabored breathing, decreased breath sounds at the bases. No wheeze. HEART: S1, S2. Regular rate and rhythm. ABDOMEN: Soft, no tenderness. Left BKA stump is currently dressed up. No obvious drainage on the dressing. LABS: Hemoglobin is 10.4, white count 15.3, creatinine 0.76. Blood culture had been negative. A CT of the left BKA stump did not show any abscess. DIAGNOSTIC IMPRESSION AND PLAN: Patient admitted to the hospital with fever; however, no fever has been recorded since has been admitted. Did have elevated white count with concern for left BKA stump cellulitis. CT did not show any evidence of any abscess or osteomyelitis. Patient is covered with cefepime and vancomycin to continue. Adjust antibiotic further on the basis of clinical response and culture. Continue supportive care. MMODL / IJN: [id number] /
[2019-05-24] MEDS: PANTOPRAZOLE 40 MG TABLET PO SCH (07:50)
[2019-05-24] MEDS: DIAZEPAM 5 MG TAB PO SCH ×2 (07:50→21:03)
[2019-05-24] MEDS: metroNIDAZOLE 500 MG TAB PO SCH ×3 (07:51→21:04)
[2019-05-24] MEDS: HEPARIN SODIUM,PORCINE 5,000 UNIT/ML 1 ML VIAL SQ SCH ×2 (07:51→21:04)
[2019-05-24] MEDS: LACTULOSE 20 GM/30 ML CUP PO SCH ×3 (07:52→21:04)
[2019-05-24] MEDS: LORATADINE 10 MG TAB PO SCH (07:52)
[2019-05-24] MEDS: PREGABALIN 75 MG CAP PO SCH ×2 (07:52→21:03)
[2019-05-24] MEDS: HYDROcodone/APAP 10-325MG 1 EACH TAB PO PRN (07:53)
[2019-05-24] MEDS: POTASSIUM CHLORIDE ER 10 MEQ TAB.ER.PRT PO SCH (07:53)
--- NOTE | 2019-05-24 08:10 | P.PN ---
Subjective Progress Note Date: 05/24/19 Principal diagnosis: This is a continue prednisone a 64-year-old male with recent [id number] amputation of the leg. He was recently discharged for perceived infection. The patient is stating that he would like to go to a different institution. However, I told him that they would not necessarily do anything different and he would have to just to another physician. No voiding symptoms. No significant nausea, vomiting or diarrhea. Question need for PTOT. Objective - Vital Signs Vital signs: Vital Signs Temp 97.1 F L 05/24/19 04:30 Pulse 82 05/24/19 04:30 Resp 18 05/24/19 04:30 BP 106/68 05/24/19 04:30 Pulse Ox 93 L 05/24/19 04:30 Intake & Output 05/23/19 05/24/19 05/24/19 18:59 06:59 18:59 Intake Total 1100 800 Output Total 1350 Balance -250 800 Intake: Oral 1100 800 Output: Urine 1350 Other: Voiding Method Urinal Urinal Incontinent Incontinent # Voids 2 2 - Constitutional General appearance: Present: thin - EENT Eyes: Absent: abnormal pupil - Neck Neck: Absent: lymphadenopathy - Respiratory Respiratory: bilateral: diminished - Cardiovascular Rhythm: regular Heart sounds: normal: S1, S2 - Gastrointestinal General gastrointestinal: Absent: tenderness - Neurologic Neurologic: Present: CNII-XII intact. Absent: focal deficits - Musculoskeletal Musculoskeletal: Absent: gait normal - Labs CBC & Chem 7: 05/23/19 07:15 05/23/19 07:15 Labs: Microbiology - Last 24 Hours (Table) 05/22/19 15:50 Urine Culture - Preliminary Urine,Voided 05/22/19 12:33 Blood Culture - Preliminary Blood No Growth after 24 hours Assessment and Plan (1) Fever Current Visit: Yes Status: Acute Code(s): R50.9 - FEVER, UNSPECIFIED SNOMED Code(s): 538919620 (2) Peripheral vascular disease Current Visit: Yes Status: Acute Code(s): I73.9 - PERIPHERAL VASCULAR DISEASE, UNSPECIFIED SNOMED Code(s): 179282539 (3) Acute depression Current Visit: No Status: Acute Code(s): F32.9 - MAJOR DEPRESSIVE DISORDER, SINGLE EPISODE, UNSPECIFIED SNOMED Code(s): 038953106 Plan: Continue current antibiotic treatment. Appreciate infectious disease. Discharge planning as necessary. Check CBC and CMP in a.m.
[2019-05-24] MEDS: CEFEPIME 2 GM in SODIUM CHLORIDE 0.9% 100 ML IVPB SCH ×2 (08:42→21:04)
[2019-05-24 09:57] LABS: Anisocytosis Slight; Basophils % (A) 0 %; Eosinophils # (A) 0.3 k/uL (0-0.7); Eosinophils % (A) 3 %; HCT 32.8 % (39.0-53.0); HGB 10.2 gm/dL (13.0-17.5); Lymphocytes % (A) 9 %; MCH 27.2 pg (25.0-35.0); MCV 87.6 fL (80.0-100.0); Mean Platelet Volume 8.1; Monocytes # (A) 0.7 k/uL (0-1.0); Monocytes % (A) 6 %; Neutrophils # (A) 9.2 k/uL (1.3-7.7); Neutrophils % (A) 82 %; Platelet Count 268 k/uL (150-450); RBC 3.75 m/uL (4.30-5.90); RDW 18.4 % (11.5-15.5); WBC 11.3 k/uL (3.8-10.6)
[2019-05-24 10:11] LABS: African American GFR (CKD) >90 (>60 ml/min/1.73 sqM); Anion Gap 11 mmol/L; Blood Urea Nitrogen 20 mg/dL (9-20); Carbon Dioxide 24 mmol/L (22-30); Chloride 100 mmol/L (98-107); Glucose 131 mg/dL (74-99); Non-African American GFR(CKD) >90 (>60 ml/min/1.73 sqM); Sodium 135 mmol/L (137-145)
[2019-05-24 10:14] LABS: Potassium 3.7 mmol/L (3.5-5.1)
--- NOTE | 2019-05-24 11:16 | P.GSCN ---
History of Present Illness Consult date: 05/24/19 Reason for Consult: Left BKA, possible cellulitis History of present illness: Patient is 64-year-old old male with past medical history for diabetic foot infection that required a left inhif-ddy-lvsb amputation recently who subsequently was also just discharged from the hospital for suspected cellulitis/wound infection. The patient had been discharged back to [facility] on the [place] with the midline to complete antibiotics for previous culture that was positive with Klebsiella and strep. The patient was sent over from [facility] with fever and concern for sepsis, patient had altered mental status changes. The rehab facility was concerned that there was a possible dehiscense of his left BKA stump with drainage and sent the patient to the emergency room for further evaluation. Chest x-ray was completed and suggests possibility of bronchitis, left knee x-ray was negative for any signs of osteomyelitis. CT of the lower left extremity with contrast showed postsurgical changes of left BKA, with some soft tissue swelling that could reflect cellulitis, the BKA osteotomy margin remains sharply demarcated, No periostitis or osteolysis to suggest osteomyelitis at this time and No abscess formation. According to notes from infectious disease his midline was almost out, with the tip at the surface of the skin, hence infectious disease believes this may be the source of his fever. The patient himself denies any fever or chills, any pain at the amputation site, any drainage or foul odor from the amputation site. The patient states he has had a productive cough for at least a couple months now, denies any shortness of breath, or chest pain. White blood cell count was 15.3, hemoglobin 10.4, hematocrit 32, platelets 281. Local wound care has been ordered for left BKA stump with Aquacel silver dressing, vancomycin and cefepime ordered per infectious disease. Review of Systems Review of systems completed, all pertinent positives and negatives as stated in the HPI. Past Medical History Past Medical History: COPD, Deep Vein Thrombosis (DVT), GERD/Reflux, Hearing Disorder / Deafness, Osteoarthritis (OA), Pneumonia, Vascular Disorder Additional Past Medical History / Comment(s): Previous history of GI bleed, previous history of a right medial thigh abscess that was drained and a foreign body was removed and the patient had positive cultures for MRSA, previous peripheral vascular disease with a left fem-pop bypass surgery, severe COPD with FEV1 of 39% of predicted maintained on a combination of Advair and Spiriva, chr onic smoker, history of DVT in 2007, history of open wounds at the level of the metatarsal joints with previous amputation transmetatarsal, previous history of osteomyelitis, chronic hypoxic respiratory failure limited on oxygen, history of gout History of Any Multi-Drug Resistant Organisms: CRE, MRSA Year Discovered:: 11/21/18-MRSA MDRO Source:: Right Leg Past Surgical History: Orthopedic Surgery Additional Past Surgical History / Comment(s): Bilateral femoral pop bypass surgery, arthroscopic left knee surgery, bilateral inguinal hernia repair, left transmetatarsal amputation of the great toe, Removal right pinky bone,Previous transmetatarsal amputation of the left foot with subsequent revision, fem-pop bypass surgery, incision and drainage of a right mid thigh abscess Past Anesthesia/Blood Transfusion Reactions: No Reported Reaction Past Psychological History: Anxiety Smoking Status: Current some day smoker Past Alcohol Use History: None Reported Past Drug Use History: Marijuana - Past Family History Brother(s) Family Medical History: Coronary Artery Disease (CAD) Additional Family Medical History / Comment(s): heart attack/cabg Father Family Medical History: No Reported History Mother Family Medical History: Deep Vein Thrombosis (DVT) Medications and Allergies Home Medications Medication Instructions Recorded Confirmed Type Cetirizine HCl [Zyrtec] 10 mg PO DAILY@0900 02/09/19 05/22/19 History Benzocaine/Menthol Lozeng [Cepacol 1 lozenge MUCOUS MEM Q2H PRN 05/09/19 05/22/19 History lozenge] Bisacodyl 10 mg PO DAILY PRN 05/09/19 05/22/19 History Dronabinol 2.5 mg PO BID@0600,1400 05/09/19 05/22/19 History Ferrous Sulfate [Iron (65 MG 325 mg PO DAILY@1400 05/09/19 05/22/19 History Elemental)] Lactose-Reduced Food [Ensure Plus] 1 can PO TID@0900,1300,209905/09/19 05/22/19 History Lactulose 10 gm PO BID@0900,2100 05/09/19 05/22/19 History Mag Hydrox/Aluminum Hyd/Simeth 30 ml PO Q6H PRN 05/09/19 05/22/19 History [Mylanta Maximum Strength Liq] Sertraline HCl [Zoloft] 100 mg PO HS@209905/09/19 05/22/19 History Sertraline [Zoloft] 25 mg PO HS@209905/09/19 05/22/19 History Diazepam [Valium] 10 mg PO BID@0900,2100 #60 tab 05/13/19 05/22/19 Rx HYDROcodone/APAP 10-325MG [[place] 1 tab PO Q4H PRN #120 tab 05/13/19 05/22/19 Rx 10-325] Acetaminophen [Tylenol] 650 mg PO Q4H PRN 05/22/19 05/22/19 History Oyster Shell Calciummg/Vitamin D 1 tab PO BID@0900,1700 05/22/19 05/22/19 Hist ory 200iu Potassium Chloride ER [K-Dur 10] 10 meq PO DAILY@0900 05/22/19 05/22/19 History Pregabalin [Lyrica] 75 mg PO BID@0900,2100 05/22/19 05/22/19 History Allergies Allergy/AdvReac Type Severity Reaction Status Date / Time hydromorphone [From Dilaudid] AdvReac Hallucinati Verified 05/22/19 15:24 ons Surgical - Exam Vital Signs Temp Pulse Resp BP Pulse Ox 97.3 F L 73 18 104/64 95 05/22/19 11:06 05/22/19 11:06 05/22/19 11:06 05/22/19 11:06 05/22/19 11:06 General appearance: The patient is alert, oriented, in no acute distress. HET: Head is normocephalic and atraumatic. Neck: Supple without lymphadenopathy. Trachea midline. Heart: S1 S2. Regular rate and rhythm. Lungs: No crackles or wheezes are heard. Abdomen: Soft, nontender, nondistended with bowel sounds. No peritoneal signs. No palpable organomegaly or masses. Extremities: Left BKA stump incision currently healing with no significant slough tissue or surrounding redness, there is no drainage or foul odor. The patient denies any tenderness to palpation. Neurological: No focal deficits. Results - Labs 05/24/19 09:13 05/24/19 09:13 Abnormal Lab Results - Last 24 Hours (Table) 05/23/19 05/24/19 Range/Units 07:15 09:13 WBC 11.3 H (3.8-10.6) k/uL RBC 3.75 L (4.30-5.90) m/uL Hgb 10.2 L (13.0-17.5) gm/dL Hct 32.8 L (39.0-53.0) % RDW 18.4 H (11.5-15.5) % Neutrophils # 9.2 H (1.3-7.7) k/uL Procalcitonin 0.39 H (0.02-0.09) ng/mL Microbiology - Last 24 Hours (Table) 05/22/19 15:50 Urine Culture - Preliminary Urine,Voided 05/22/19 12:33 Blood Culture - Preliminary Blood No Growth after 24 hours Assessment and Plan Assessment: #1 recent left BKA #2 fever #3 possible cellulitis left BKA site #3 peripheral vascular disease Plan: Discussed this patient with Dr. Farah. Will continue with local wound care per infectious disease order. Continue current antibiotics per infectious disease. There is no current signs of infection at the left BKA site, no drainage or foul odor. There is no indication at this time for any vascular surgical intervention. We'll continue to follow. Further recommendations to follow. Thank you for this consultation and allowing us to participate in the plan of care of this patient during his hospital stay. The above dictated assessment and findings were discussed with Dr. Farah. The impression and plan of care have been directed as dictated.
[2019-05-24] MEDS: THIAMINE 100 MG TAB PO SCH (11:49)
[2019-05-24] MEDS: FOLIC ACID 1 MG TAB PO SCH (11:49)
[2019-05-24] MEDS: MULTIVITAMINS, THERA 1 EACH TAB PO SCH (11:49)
[2019-05-24 13:42] VITALS: BMI 20.8
[2019-05-24] MEDS: FERROUS SULFATE 325 MG TAB PO SCH (14:33)
[2019-05-24] MEDS: SERTRALINE 100 MG TAB PO SCH (21:03)
[2019-05-24] MEDS: SERTRALINE 25 MG TAB PO SCH (21:04)
[2019-05-25] MEDS: HYDROcodone/APAP 10-325MG 1 EACH TAB PO PRN ×4 (01:32→20:43)
[2019-05-25 09:29] LABS: Anisocytosis Slight; Basophils % (A) 0 %; Eosinophils # (A) 0.4 k/uL (0-0.7); Eosinophils % (A) 7 %; HCT 32.4 % (39.0-53.0); Hypochromasia Slight; Lymphocytes # (A) 1.1 k/uL (1.0-4.8); Lymphocytes % (A) 17 %; MCHC 30.9 g/dL (31.0-37.0); MCV 87.5 fL (80.0-100.0); Mean Platelet Volume 8.1; Monocytes # (A) 0.3 k/uL (0-1.0); Monocytes % (A) 5 %; Neutrophils # (A) 4.4 k/uL (1.3-7.7); Neutrophils % (A) 69 %; Platelet Count 303 k/uL (150-450); RBC 3.71 m/uL (4.30-5.90); RDW 17.8 % (11.5-15.5); WBC 6.3 k/uL (3.8-10.6)
--- NOTE | 2019-05-25 09:29 | P.PN ---
Subjective Progress Note Date: 05/25/19 Patient seen and examined lying in bed asleep, easily arousable. Patient denies any changes through the night, denies any fevers or chills. Patient states that physical therapy was in this morning to work with him. He denies any pain at this time. Objective - Vital Signs Vital signs: Vital Signs Temp 96.9 F L 05/25/19 04:39 Pulse 66 05/25/19 04:39 Resp 16 05/25/19 04:39 BP 106/59 05/25/19 04:39 Pulse Ox 93 L 05/25/19 04:39 Intake & Output 05/24/19 05/25/19 05/25/19 18:59 06:59 18:59 Intake Total 660 Output Total 1400 Balance 660 -1400 Weight 71.668 kg Intake: Oral 660 Output: Urine 1400 Other: Voiding Method Urinal Urinal Incontinent # Voids 2 - Exam General appearance: Asleep, but easily arousable. The patient is alert, oriented, in no acute distress. HET: Head is normocephalic and atraumatic. Neck: Supple without lymphadenopathy. Trachea midline. Heart: S1 S2. Regular rate and rhythm. Lungs: No crackles or wheezes are heard Extremities: Palpable femoral pulses. Left BKA stump with dressing that is C,D,I. Warm to touch, no redness or swelling, denies pain to palpation. Neurological: No focal deficits. Strength and sensation intact. - Labs CBC & Chem 7: 05/24/19 09:13 05/24/19 09:13 Labs: Abnormal Lab Results - Last 24 Hours (Table) 05/23/19 05/24/19 05/24/19 Range/Units 07:15 09:13 09:13 WBC 11.3 H (3.8-10.6) k/uL RBC 3.75 L (4.30-5.90) m/uL Hgb 10.2 L (13.0-17.5) gm/dL Hct 32.8 L (39.0-53.0) % RDW 18.4 H (11.5-15.5) % Neutrophils # 9.2 H (1.3-7.7) k/uL Sodium 135 L (137-145) mmol/L Creatinine 0.65 L (0.66-1.25) mg/dL Glucose 131 H (74-99) mg/dL Calcium 8.0 L (8.4-10.2) mg/dL Procalcitonin 0.39 H (0.02-0.09) ng/mL Microbiology - Last 24 Hours (Table) 05/22/19 15:50 Urine Culture - Final Urine,Voided 05/22/19 12:33 Blood Culture - Preliminary Blood No Growth after 48 hours Assessment and Plan Assessment: #1 recent left BKA #2 fever, resolved #3 peripheral vascular disease Plan: Continue with IV antibiotics per infectious disease recommendations, continue with local wound care treatment. No no surgical indications per vascular surgery. We will continue to follow. Patient is to continue to follow with Dr. Farah in clinic upon discharge. The above dictated assessment and findings were discussed with Dr. Morel. The impression and plan of care have been directed as dictated.
[2019-05-25 09:42] LABS: ALT 20 U/L (4-49); AST 24 U/L (17-59); African American GFR (CKD) >90 (>60 ml/min/1.73 sqM); Albumin 2.4 g/dL (3.5-5.0); Alkaline Phosphatase 109 U/L (38-126); Anion Gap 8 mmol/L; Blood Urea Nitrogen 19 mg/dL (9-20); Carbon Dioxide 26 mmol/L (22-30); Chloride 105 mmol/L (98-107); Glucose 85 mg/dL (74-99); Non-African American GFR(CKD) >90 (>60 ml/min/1.73 sqM); Potassium 3.6 mmol/L (3.5-5.1); Sodium 139 mmol/L (137-145); Total Bilirubin 0.2 mg/dL (0.2-1.3); Total Protein 5.3 g/dL (6.3-8.2)
[2019-05-25] MEDS: POTASSIUM CHLORIDE ER 10 MEQ TAB.ER.PRT PO SCH (10:39)
[2019-05-25] MEDS: LORATADINE 10 MG TAB PO SCH (10:39)
[2019-05-25] MEDS: DIAZEPAM 5 MG TAB PO SCH ×2 (10:39→20:37)
[2019-05-25] MEDS: metroNIDAZOLE 500 MG TAB PO SCH ×3 (10:39→20:38)
[2019-05-25] MEDS: LACTULOSE 20 GM/30 ML CUP PO SCH ×3 (10:39→20:38)
[2019-05-25] MEDS: FOLIC ACID 1 MG TAB PO SCH (10:39)
[2019-05-25] MEDS: PREGABALIN 75 MG CAP PO SCH ×2 (10:39→20:38)
[2019-05-25] MEDS: PANTOPRAZOLE 40 MG TABLET PO SCH ×2 (10:39→10:45)
[2019-05-25] MEDS: SODIUM CHLORIDE 0.9% 1,000 ML IV SCH ×2 (10:40→20:39)
[2019-05-25] MEDS: HEPARIN SODIUM,PORCINE 5,000 UNIT/ML 1 ML VIAL SQ SCH ×2 (10:40→20:38)
[2019-05-25] MEDS: CEFEPIME 2 GM in SODIUM CHLORIDE 0.9% 100 ML IVPB SCH ×2 (10:40→20:37)
[2019-05-25] MEDS: VANCOMYCIN 1,250 MG in SODIUM CHLORIDE 0.9% 250 ML IVPB SCH (12:29)
[2019-05-25] MEDS: MULTIVITAMINS, THERA 1 EACH TAB PO SCH (12:43)
[2019-05-25] MEDS: THIAMINE 100 MG TAB PO SCH (12:43)
[2019-05-25] MEDS: FERROUS SULFATE 325 MG TAB PO SCH (12:43)
[2019-05-25] MEDS: SERTRALINE 25 MG TAB PO SCH (20:37)
[2019-05-25] MEDS: SERTRALINE 100 MG TAB PO SCH (20:38)
--- NOTE | 2019-05-26 00:38 | PN ---
PROGRESS NOTE DATE OF SERVICE: 05/25/2019. REASON FOR FOLLOWUP: Fever, left BKA stump wound. INTERVAL HISTORY: The patient is currently afebrile. He has been breathing comfortably. The patient denies having any chest pain, shortness of breath or cough. No abdominal pain. No pain to the left BKA stump wound area. EXAMINATION: Vital signs are stable. T-max was 98. General description is a middle-aged male lying in bed in no distress. Respiratory system: Unlabored breathing. Clear to auscultation anteriorly. Heart S1, S2. Regular rate and rhythm. ABDOMEN: Soft, no tenderness. Left BKA stump is currently dressed up. No obvious drainage on the dressing. LABS: Blood cultures negative. Urine is negative. White count normalized to 6.3. DIAGNOSTIC IMPRESSION AND PLAN: Patient admitted to the hospital with fever. Apparently some drainage from his left BKA stump wound area with no evidence of any definitive cellulitis. CT was negative for any abscess or osteomyelitis. The patient's fever and white count responded to cefepime and vancomycin, to continue. Repeat inflammatory markers in the morning. Local care to continue with dry Aquacel silver dressing. Continue supportive care. MMODL / IJN: [id number] /
[2019-05-26] MEDS ORDERED: VANCOMYCIN TROUGH DUE 1 EACH MISC MISCELLANE ONE (02:00)
[2019-05-26 02:45] LABS: Anisocytosis Slight; Basophils % (A) 0 %; Eosinophils # (A) 0.3 k/uL (0-0.7); Eosinophils % (A) 5 %; HCT 31.5 % (39.0-53.0); HGB 9.9 gm/dL (13.0-17.5); Lymphocytes # (A) 1.2 k/uL (1.0-4.8); Lymphocytes % (A) 16 %; MCH 27.7 pg (25.0-35.0); MCHC 31.6 g/dL (31.0-37.0); MCV 87.7 fL (80.0-100.0); Monocytes # (A) 0.5 k/uL (0-1.0); Monocytes % (A) 7 %; Neutrophils % (A) 70 %; Platelet Count 270 k/uL (150-450); RBC 3.59 m/uL (4.30-5.90); RDW 18.3 % (11.5-15.5); WBC 7.1 k/uL (3.8-10.6)
[2019-05-26 03:00] LABS: African American GFR (CKD) >90 (>60 ml/min/1.73 sqM); Anion Gap 7 mmol/L; Blood Urea Nitrogen 22 mg/dL (9-20); Calcium 7.8 mg/dL (8.4-10.2); Carbon Dioxide 27 mmol/L (22-30); Chloride 102 mmol/L (98-107); Glucose 122 mg/dL (74-99); Non-African American GFR(CKD) >90 (>60 ml/min/1.73 sqM); Potassium 3.8 mmol/L (3.5-5.1); Sodium 136 mmol/L (137-145)
[2019-05-26 03:11] LABS: C Reactive Protein 178.1 mg/L (<10.0)
[2019-05-26] MEDS: VANCOMYCIN 1,250 MG in SODIUM CHLORIDE 0.9% 250 ML IVPB SCH (03:16)
[2019-05-26 03:24] LABS: Erythrocyte Sedimentation Rate 111 mm/hr (0-15)
--- NOTE | 2019-05-26 07:54 | P.DS ---
Providers Date of admission: 05/22/19 13:42 Attending physician: Malik Bui Consults: 05/22/19 13:42 Consult Physician Urgent Consulting Provider: Neha Farah Consult Reason/Comments: PVD, hx lle amputation, possible recurrent cellulitis Do you want consulting provider notified?: Yes 05/22/19 13:43 Consult Physician Urgent Consulting Provider: Sean Real Consult Reason/Comments: pyrexia, possible sepsis, lle cellulitis Do you want consulting provider notified?: Yes Primary care physician: Malik Bui - Discharge Diagnosis(es) (1) Fever Current Visit: Yes Status: Acute (2) Peripheral vascular disease Current Visit: Yes Status: Acute (3) Acute depression Current Visit: No Status: Acute Hospital Course: The patient was brought back for recurrent reinfection of stump area. The patient was placed on appropriate antibiotic treatment. The patient was stabilized and tolerating diet. I suspect we will have difficulty with this particular patient because he does not tend to want to take care of himself appropriately and I worry about the stump not healing properly because of his lack of compliance with treatment. We will transfer back to ECF/or home pending discharge planning. We will have infectious disease clarify appropriate antibiotic treatment and he would discharge since guarded condition to follow-up with me in 3-5 days. Patient Condition at Discharge: Stable Plan - Discharge Summary Discharge Rx Participant: No New Discharge Prescriptions: New RX: metroNIDAZOLE [Flagyl] 500 mg PO TID #21 tab Continue RX: Cetirizine HCl [Zyrtec] 10 mg PO DAILY@0900 RX: Dronabinol 2.5 mg PO BID@0600,1400 RX: Lactulose 10 gm PO BID@0900,2100 RX: Sertraline HCl [Zoloft] 100 mg PO HS@2100 RX: Sertraline [Zoloft] 25 mg PO HS@2100 RX: Benzocaine/Menthol Lozeng [Cepacol lozenge] 1 lozenge MUCOUS MEM Q2H PRN PRN Reason: Sore Throat RX: Bisacodyl 10 mg PO DAILY PRN PRN Reason: Constipation RX: Ferrous Sulfate [Iron (65 MG Elemental)] 325 mg PO DAILY@1400 RX: Lactose-Reduced Food [Ensure Plus] 1 can PO TID@0900,1300,2100 RX: Mag Hydrox/Aluminum Hyd/Simeth [Mylanta Maximum Strength Liq] 30 ml PO Q6H PRN PRN Reason: Indigestion RX: HYDROcodone/APAP 10-325MG [[place] 10-325] 1 tab PO Q4H PRN #120 tab PRN Reason: Pain RX: Diazepam [Valium] 10 mg PO BID@0900,2099 #60 tab Oyster Shell Calciummg/Vitamin D 200iu 1 tab PO BID@0900,1700 RX: Potassium Chloride ER [K-Dur 10] 10 meq PO DAILY@0900 RX: Pregabalin [Lyrica] 75 mg PO BID@09,2099 RX: Acetaminophen [Tylenol] 650 mg PO Q4H PRN PRN Reason: Fever And/ Or Pain Discharge Medication List RX: Cetirizine HCl [Zyrtec] 10 mg PO DAILY@0900 02/09/19 [History] RX: Benzocaine/Menthol Lozeng [Cepacol lozenge] 1 lozenge MUCOUS MEM Q2H PRN 05/09/19 [History] RX: Bisacodyl 10 mg PO DAILY PRN 05/09/19 [History] RX: Dronabinol 2.5 mg PO BID@0600,1400 05/09/19 [History] RX: Ferrous Sulfate [Iron (65 MG Elemental)] 325 mg PO DAILY@139905/09/19 [History] RX: Lactose-Reduced Food [Ensure Plus] 1 can PO TID@0900,1300,209905/09/19 [History] RX: Lactulose 10 gm PO BID@0900,209905/09/19 [History] RX: Mag Hydrox/Aluminum Hyd/Simeth [Mylanta Maximum Strength Liq] 30 ml PO Q6H PRN 05/09/19 [History] RX: Sertraline HCl [Zoloft] 100 mg PO HS@209905/09/19 [History] RX: Sertraline [Zoloft] 25 mg PO HS@209905/09/19 [History] RX: Diazepam [Valium] 10 mg PO BID@00,2100 #60 tab 05/13/19 [Rx] RX: HYDROcodone/APAP 10-325MG [[place] 10-325] 1 tab PO Q4H PRN #120 tab 05/13/19 [Rx] Oyster Shell Calciummg/Vitamin D 200iu 1 tab PO BID@0900,1700 05/22/19 [History] RX: Acetaminophen [Tylenol] 650 mg PO Q4H PRN 05/22/19 [History] RX: Potassium Chloride ER [K-Dur 10] 10 meq PO DAILY@0900 05/22/19 [History] RX: Pregabalin [Lyrica] 75 mg PO BID@0900,2100 05/22/19 [History] RX: metroNIDAZOLE [Flagyl] 500 mg PO TID #21 tab 05/26/19 [Rx] Follow up Appointment(s)/Referral(s): Malik Bui MD [Primary Care Provider] - 1-2 days Patient Instructions/Handouts: How to Stop Smoking (DC), MRSA (Methicillin- Resistant Staphylococcus Aureus) (DC), Cellulitis (DC), Fever in Adults (ED), COPD (Chronic Obstructive Pulmonary Disease) (DC), Pneumonia (DC), CRE (Carba penem Resistant Enterobacteriaceae) (DC), Gangrene (DC) Discharge Disposition: TRANSFER TO SNF/ECF
--- NOTE | 2019-05-26 07:57 | P.PN ---
Subjective Principal diagnosis: This is a continue prednisone a 64-year-old male with recent [id number] amputation of the leg. He was recently discharged for perceived infection. The patient is stating that he would like to go to a different institution. However, I told him that they would not necessarily do anything different and he would have to just to another physician. No voiding symptoms. No significant nausea, vomiting or diarrhea. Question need for PTOT. Objective - Vital Signs Vital signs: Vital Signs Temp 97.0 F L 05/26/19 05:00 Pulse 78 05/26/19 05:00 Resp 16 05/26/19 05:00 BP 118/62 05/26/19 05:00 Pulse Ox 95 05/26/19 05:00 Intake & Output 05/25/19 05/26/19 05/26/19 18:59 06:59 18:59 Output Total 700 Balance -700 Output: Urine 700 Other: Voiding Method Urinal # Voids 3 # Bowel Movements 1 - Constitutional General appearance: Present: thin - EENT Eyes: Absent: abnormal pupil - Respiratory Respiratory: bilateral: CTA - Cardiovascular Rhythm: regular Heart sounds: normal: S1, S2 Abnormal Heart Sounds: Absent: S3 Gallop - Gastrointestinal General gastrointestinal: Present: soft. Absent: tenderness - Neurologic Neurologic: Present: CNII-XII intact - Labs CBC & Chem 7: 05/26/19 02:21 05/26/19 02:21 Labs: Abnormal Lab Results - Last 24 Hours (Table) 05/25/19 05/25/19 05/26/19 Range/Units 08:14 08:14 02:21 RBC 3.71 L 3.59 L (4.30-5.90) m/uL Hgb 10.0 L 9.9 L (13.0-17.5) gm/dL Hct 32.4 L 31.5 L (39.0-53.0) % MCHC 30.9 L (31.0-37.0) g/dL RDW 17.8 H 18.3 H (11.5-15.5) % ESR 111 H (0-15) mm/hr Sodium (137-145) mmol/L BUN (9-20) mg/dL Glucose (74-99) mg/dL Calcium 8.0 L (8.4-10.2) mg/dL C-Reactive Protein (<10.0) mg/L Total Protein 5.3 L (6.3-8.2) g/dL Albumin 2.4 L (3.5-5.0) g/dL 05/26/19 Range/Units 02:21 RBC (4.30-5.90) m/uL Hgb (13.0-17.5) gm/dL Hct (39.0-53.0) % MCHC (31.0-37.0) g/dL RDW (11.5-15.5) % ESR (0-15) mm/hr Sodium 136 L (137-145) mmol/L BUN 22 H (9-20) mg/dL Glucose 122 H (74-99) mg/dL Calcium 7.8 L (8.4-10.2) mg/dL C-Reactive Protein 178.1 H (<10.0) mg/L Total Protein (6.3-8.2) g/dL Albumin (3.5-5.0) g/dL Microbiology - Last 24 Hours (Table) 05/22/19 12:33 Blood Culture - Preliminary Blood No Growth after 72 hours Assessment and Plan (1) Fever Current Visit: Yes Status: Acute Code(s): R50.9 - FEVER, UNSPECIFIED SNOMED Code(s): 967306837 (2) Peripheral vascular disease Current Visit: Yes Status: Acute Code(s): I73.9 - PERIPHERAL VASCULAR DISEASE, UNSPECIFIED SNOMED Code(s): 070299535 (3) Acute depression Current Visit: No Status: Acute Code(s): F32.9 - MAJOR DEPRESSIVE DISORDER, SINGLE EPISODE, UNSPECIFIED SNOMED Code(s): 694139923 Plan: Continue current antibiotic treatment. Appreciate infectious disease. Discharge planning as necessary. Check CBC and CMP in a.m. Time with Patient: Less than 30
[2019-05-26] MEDS: LACTULOSE 20 GM/30 ML CUP PO SCH (08:26)
[2019-05-26] MEDS: HEPARIN SODIUM,PORCINE 5,000 UNIT/ML 1 ML VIAL SQ SCH (08:26)
[2019-05-26] MEDS: DIAZEPAM 5 MG TAB PO SCH (09:18)
[2019-05-26] MEDS: metroNIDAZOLE 500 MG TAB PO SCH ×2 (09:19→16:46)
[2019-05-26] MEDS: LORATADINE 10 MG TAB PO SCH (09:19)
[2019-05-26] MEDS: PREGABALIN 75 MG CAP PO SCH (09:19)
[2019-05-26] MEDS: PANTOPRAZOLE 40 MG TABLET PO SCH (09:19)
[2019-05-26] MEDS: CEFEPIME 2 GM in SODIUM CHLORIDE 0.9% 100 ML IVPB SCH (09:19)
[2019-05-26] MEDS: POTASSIUM CHLORIDE ER 10 MEQ TAB.ER.PRT PO SCH (09:19)
[2019-05-26] MEDS: HYDROcodone/APAP 10-325MG 1 EACH TAB PO PRN ×2 (09:25→13:19)
--- NOTE | 2019-05-26 10:56 | P.PN ---
Subjective Progress Note Date: 05/26/19 Patient seen and examined lying in bed. Patient denies any changes through the night. Denies any fever or chills. Patient states he is being discharged back to [facility] the [place]. Objective - Vital Signs Vital signs: Vital Signs Temp 97.0 F L 05/26/19 05:00 Pulse 78 05/26/19 05:00 Resp 16 05/26/19 05:00 BP 118/62 05/26/19 05:00 Pulse Ox 95 05/26/19 05:00 Intake & Output 05/25/19 05/26/19 05/26/19 18:59 06:59 18:59 Output Total 700 Balance -700 Output: Urine 700 Other: Voiding Method Urinal # Voids 3 # Bowel Movements 1 - Exam General appearance: Asleep, but easily arousable. The patient is alert, oriented, in no acute distress. HET: Head is normocephalic and atraumatic. Neck: Supple without lymphadenopathy. Trachea midline. Heart: S1 S2. Regular rate and rhythm. Lungs: No crackles or wheezes are heard Extremities: Palpable femoral pulses. Left BKA stump with dressing that is C,D,I. Left BKA site with soft tissue and minimal drainage. Warm to touch, no redness or swelling, denies pain to palpation. Neurological: No focal deficits. Strength and sensation intact. - Labs CBC & Chem 7: 05/26/19 02:21 05/26/19 02:21 Labs: Abnormal Lab Results - Last 24 Hours (Table) 05/26/19 05/26/19 Range/Units 02:21 02:21 RBC 3.59 L (4.30-5.90) m/uL Hgb 9.9 L (13.0-17.5) gm/dL Hct 31.5 L (39.0-53.0) % RDW 18.3 H (11.5-15.5) % ESR 111 H (0-15) mm/hr Sodium 136 L (137-145) mmol/L BUN 22 H (9-20) mg/dL Glucose 122 H (74-99) mg/dL Calcium 7.8 L (8.4-10.2) mg/dL C-Reactive Protein 178.1 H (<10.0) mg/L Microbiology - Last 24 Hours (Table) 05/22/19 12:33 Blood Culture - Preliminary Blood No Growth after 72 hours Assessment and Plan Assessment: #1 recent left BKA #2 fever, resolved #3 peripheral vascular disease Plan: Patient is to be discharged to [facility], [facility]. Continue with antibiotics per infectious disease recommendations, continue with local wound care treatment. No no surgical indications per vascular surgery. We will continue to follow. Patient is to continue to follow with Dr. Farah in clinic upon discharge. The above dictated assessment and findings were discussed with Dr. Farah. The impression and plan of care have been directed as dictated.
--- NOTE | 2019-05-26 11:16 | PN ---
PROGRESS NOTE DATE OF SERVICE: 05/26/2019 REASON FOR FOLLOWUP: The patient being discharged and need discharge antibiotics. INTERVAL HISTORY: The patient is currently afebrile. He has been breathing comfortably. The patient denies having any chest pain, shortness of breath or cough. No nausea, no vomiting. No abdominal pain. Denies pain to the left BKA stump. The patient wants to get out of here. PHYSICAL EXAMINATION: Blood pressure 118/62 with a pulse of 78, temperature 97. He is 95% on room air. General description is middle-aged male lying in bed in no distress. RESPIRATORY SYSTEM: Unlabored breathing, clear to auscultation anteriorly. HEART: S1, S2. Regular rate and rhythm. ABDOMEN: Soft, no tenderness. Left BKA stump is currently dressed. No obvious drainage on the dressing. LABS: Hemoglobin is 9.9, white count 7.1. Sed rate is 111. CRP is 178. Vanco trough is 15.4. DIAGNOSTIC IMPRESSION AND PLAN: Patient admitted to the hospital with presumed fever at the senior living and this patient did have a CT of the left BKA stump did not show any abscess or osteomyelitis. The patient with no other clinical focus of infection and the patient already being discharged. We will go ahead and switch antibiotic therapy to doxycycline 100 mg twice a day for 2 weeks. Local wound care with Aquacel Silver dressing, elevated CRP and Sed rate is concerning and the patient will be monitored closely in outpatient setting. Continue with supportive care. MMODL / IJN: [id number] /
[2019-05-26 12:56] VITALS: BP 111/65; PULSE 81; RESP 15; TEMP 97.6
[2019-05-26] MEDS: THIAMINE 100 MG TAB PO SCH (13:08)
[2019-05-26] MEDS: FOLIC ACID 1 MG TAB PO SCH (13:09)
[2019-05-26] MEDS: FERROUS SULFATE 325 MG TAB PO SCH (13:09)
[2019-05-26] MEDS: MULTIVITAMINS, THERA 1 EACH TAB PO SCH (13:09)
[2019-05-26] MEDS: SODIUM CHLORIDE 0.9% 1,000 ML IV SCH (13:09)
--- NOTE | 2019-05-31 08:00 | CDI ---
Documentation Clarification Form Date: 05/31/19 From: Zaina Richter Phone: If you have a question about this query, please contact Karen Mcintosh [employer]eder at [phone] between 8am and 5pm. Admit Date: 05/22/19 Discharge Date: 05/26/19 Patient Name: Horacio Garza Visit Number: [id number] ATTENTION: The Clinical Documentation Specialists (CDI) and [facility] Coding Staff appreciate your assistance in clarifying documentation. Please respond to the clarification below the line at the bottom and electronically sign. The CDI & [facility] Coding staff will review the response and follow-up if needed. Please note: Queries are made part of the Legal Health Record. If you have any questions, please contact the author of this message via ITS. Dear Dr. Bui The patient presented with the following: Fever at the [facility], drainage from incision site on this left lower extremity stump. History/Risk Factors: Left below the knee amputation, Clinical Indicators: Drainage from incision site, altered mental status, elevated WBC WBC: 13.0 on admit, 15.3 on 05/22 Lactic acid: 1.4 C-Reactive Protein 178.1 Procalcitonin: 0.39 Blood cultures: No growth Vitals signs on admission: T. 97.3, P. 73, R. 18, BP 104/64 Treatment: ID Consult: Patient admitted with presumed fever at the [facility] and this patient did have a CT of the left BKA stump did not show and abscess or oteomyelitis. The patient with no other clinical focus of infection. Antibiotics: IV Rocephin x 1, IV Cefepime, IV Vancomycin IV Bolus: No bolus ran at 75 mls/hr In your professional opinion, please clarify if these findings signify one of the following conditions, whether the condition is POA, and cause, if known: Condition Sepsis ruled out SIRS, without underlying infectious process-This is the correct diagnosis at this time. Sepsis Other, please specify Unable to determine MTDD
== END 2019-05-26 18:00 | disposition home health service (06) | DRG 564 ==
LOC: EC 11:00 → 6NMEDSUR 13:42
PROVIDERS: ADMIT Family Medicine; ATTEND Family Medicine
DX: T87.44 Infection of amputation stump, left lower extremity (principal); G93.41 Metabolic encephalopathy; L03.116 Cellulitis of left lower limb; E44.1 Mild protein-calorie malnutrition; E87.1 Hypo-osmolality and hyponatremia; J96.11 Chronic respiratory failure with hypoxia; D63.8 Anemia in other chronic diseases classified elsewhere; E11.51 Type 2 diabetes mellitus with diabetic peripheral angiopathy without gangrene; J44.9 Chronic obstructive pulmonary disease, unspecified; F17.200 Nicotine dependence, unspecified, uncomplicated; F32.9 Major depressive disorder, single episode, unspecified; F41.9 Anxiety disorder, unspecified; H91.90 Unspecified hearing loss, unspecified ear; K21.9 Gastro-esophageal reflux disease without esophagitis; M10.9 Gout, unspecified; R32 Unspecified urinary incontinence; M19.90 Unspecified osteoarthritis, unspecified site; Z79.899 Other long term (current) drug therapy; Z86.14 Personal history of Methicillin resistant Staphylococcus aureus infection; Z86.718 Personal history of other venous thrombosis and embolism; Z87.01 Personal history of pneumonia (recurrent); Z91.19 Patient's noncompliance with other medical treatment and regimen; Z99.81 Dependence on supplemental oxygen; Z88.5 Allergy status to narcotic agent; Z89.421 Acquired absence of other right toe(s); Z82.3 Family history of stroke; Z82.49 Family history of ischemic heart disease and other diseases of the circulatory system
CPT/HCPCS: 36415; 71046; 80048; 80053; 80202; 81003; 83605; 84145; 85025; 85610; 85652; 85730; 86140; 87040; 87086; 87502; 93005; 96374; 99285